=== PATIENT | male | born 1965 | race Caucasian/White ===

== ENCOUNTER 2018-06-30 15:19 | Inpatient (IN) | payer BC ==
[~2018-06-30] VITALS: Ht 175.3 cm; Wt 59.0 kg
[~2018-06-30 15:19] MED LIST: ACET-868 PO; ALBU1.25 MC; ALBU2.5V13 NEB; BENA40TA8 PO; CALC667C PO; CARV6.25 PO; CLON0.2T PO; DOCU-141 PO; FURO80TA85 PO; GABA-534 PO; HYDR-4075 PO; MORP15TA10 PO; ONDA4TAB8 PO; TERA10CA4 PO
[2018-06-30 15:48] LABS: BASOPHILS # (AUTO) 0.1 /CMM (0.0-0.2); BASOPHILS % (AUTO) 1.4 % (0.0-2.0); EOSINOPHILS % (AUTO) 4.8 % (0.0-6.0); HEMATOCRIT 32 % (39-51); HEMOGLOBIN 10.6 g/dL (13.5-17.5); LYMPHOCYTES # (AUTO) 1.4 /CMM (0.8-4.8); LYMPHOCYTES % (AUTO) 26.9 % (20.0-44.0); MEAN CORPUSCULAR HGB CONC 33 g/dl (31.0-36.0); MEAN CORPUSCULAR VOLUME 91 fL (80-96); MONOCYTES # (AUTO) 0.6 /CMM (0.1-1.30); NEUTROPHILS # (AUTO) 2.8 /CMM (1.8-8.9); NEUTROPHILS % (AUTO) 54.9 % (43.0-81.0); PLATELET COUNT (AUTO) 101 /CMM (150-450); RED BLOOD CELL COUNT(AUTO) 3.54 MIL/uL (4.5-6.0); WHITE BLOOD COUNT (AUTO) 5.1 K/uL (4.3-11.0)
[2018-06-30 15:58] LABS: CALCIUM, SERUM 9.4 mg/dL (8.5-10.1)
[2018-06-30 16:00] LABS: CREATININE 7.9 mg/dL (0.6-1.3)
--- NOTE | 2018-06-30 16:00 | NUR ---
patient presented to the ER sent from snf due to potassium elevated. On room air, breathing evenly and unlabored. Connected to the monitor and pulse ox. Denies any pain at this time. Kept comfortable, will continue to monitor accordingly.
[2018-06-30 16:01] LABS: POTASSIUM 6.2 mmol/L (3.5-5.1)
[2018-06-30] MEDS ORDERED: ALBUTEROL FS 2.5 MG/3 ML VIAL.NEB NEB ONE (16:30)
[2018-06-30] MEDS ORDERED: INSULIN REGULAR, HUMAN 100 UNIT/ML 10 ML VIAL IV ONE (16:30)
[2018-06-30] MEDS ORDERED: SODIUM BICARBONATE SYR 50 MEQ/50 ML DISP.SYRIN IV ONE (16:30)
[2018-06-30] MEDS ORDERED: DEXTROSE 50%-WATER 50 ML DISP.SYRIN IV ONE (16:30)
[2018-06-30] MEDS ORDERED: SODIUM BICARBONATE SYR 50 MEQ/50 ML DISP.SYRIN ONE (16:41)
[2018-06-30] MEDS ORDERED: DEXTROSE 50%-WATER 50 ML DISP.SYRIN ONE (16:41)
[2018-06-30] MEDS ORDERED: INSULIN REGULAR, HUMAN 100 UNIT/ML 10 ML VIAL ONE (16:42)
[2018-06-30] MEDS ORDERED: ALBUTEROL FS 2.5 MG/3 ML VIAL.NEB ONE (17:09)
--- NOTE | 2018-06-30 17:36 | NUR ---
CALLED [employer] CLAM SORTER WAS PAGED.
--- NOTE | 2018-06-30 17:42 | NUR ---
DR SHAH CALLED, ON THE PHONE WITH DR BLUE
[2018-06-30] MEDS ORDERED: MAGNESIUM HYDROXIDE 30 ML UDC PO PRN (18:00)
[2018-06-30] MEDS ORDERED: ONDANSETRON 4 MG TAB.RAPDIS PO SCH (18:00)
[2018-06-30] MEDS ORDERED: ALBUTEROL FS 2.5 MG/0.5 ML VIAL.NEB NEB SCH (18:00)
[2018-06-30] MEDS ORDERED: MAG HYDROX/AL HYDROX/SIMETH 30 ML UDC PO PRN (18:00)
[2018-06-30] MEDS ORDERED: ACETAMINOPHEN 325 MG TABLET PO PRN (18:00)
[2018-06-30] MEDS ORDERED: ONDANSETRON HCL/PF 4 MG/2 ML VIAL IVP PRN (18:00)
[2018-06-30] MEDS ORDERED: Z GUARD REMEDY 2 OZ OINT TP PRN (18:00)
--- NOTE | 2018-06-30 18:03 | NUR ---
RT Pt just finished Albuterol 10mg tx.
[2018-06-30 18:30] VITALS: BP 139/67
[2018-06-30] MEDS ORDERED: MORPHINE SULFATE INJ 2 MG/ML DISP.SYRIN IV PRN (18:30)
--- NOTE | 2018-06-30 18:30 | NUR ---
DESIGN CELL ENGINEER RECEIVING NOTES RECEIVED PT FROM ER TO ROOM 111-1.ALERT/ORIENTED X4,ON ROOM AIR,TOLERATING WELL.NO SOB AND ACUTE DISTRESS NOTED.LEFT AV SHUNT AND RIGHT AC G18,SITE IS CLEAN,DRY AND INTACT.NO INFILTRATION NOTED.SAFETY IS MAINTAINED AT ALL TIMES.BED IS IN LOW POSITION AND LOCKED.CALL LIGHT IS WITHIN REACH.WILL CONTINUE TO MONITOR THE PT CLOSELY.
--- NOTE | 2018-06-30 18:40 | NUR ---
patient wheeled to [facility] for tele bed. In no apparent distress noted.
--- NOTE | 2018-06-30 19:00 | NUR ---
Received patient stable,awake,alert,not in any distress,converses,coherent and appropriate. Left arm AV shunt.Shunt Precaution observed.comfort care done,needs attended. Colostomy at RLQ with liquid greenish drainage,intact.Comfort care done,needs attended. 2100 Hemodialysis started
--- NOTE | 2018-06-30 19:01 | NUR ---
PHOTOENGRAVER CLOSING NOTES PT IS LYING ON BED.NO SIGNIFICANT CHANGES NOTED IN THE SHIFT.ENDORSED TO LOAN SUPERVISOR RN FOR FOLLOW UP ADMISSION PROCESS.
[2018-06-30] MEDS: hydrALAZINE HCL 10 MG TABLET PO SCH (19:06)
[2018-06-30] MEDS: FUROSEMIDE 40 MG TABLET PO SCH (19:06)
[2018-06-30] MEDS: CALCIUM ACETATE 667 MG TABLET PO SCH (19:06)
[2018-06-30] MEDS: CLONIDINE HCL 0.1 MG TABLET PO SCH (19:07)
--- NOTE | 2018-06-30 19:30 | NUR ---
RN NOTE: DR. SHAH GAVE AN ORDER FOR ARTIFICIAL TEARS 1 DROP TO EACH EYE Q2HR PRN FOR DRY EYES. ORDER, NOTED AND CARRIED OUT. PATIENT MADE AWARE.
[2018-06-30 20:00] VITALS: BP 134/72
[2018-06-30] MEDS: HYDROCODONE/APAP 5/325MG 1 EACH TABLET PO PRN (20:09)
[2018-06-30] MEDS: ALBUTEROL FS 2.5 MG/0.5 ML VIAL.NEB NEB SCH (20:24)
[2018-06-30] MEDS: TERAZOSIN HCL 5 MG CAPSULE PO SCH (21:37)
--- NOTE | 2018-06-30 22:30 | NUR ---
REMAINS STABLE,CARE TRANSFERED AND REPORT GIVEN TO SAVANNAH HERNANDEZ
--- NOTE | 2018-06-30 23:43 | NUR ---
WALLPAPER SCRAPER NOTES RECEIVED PT ON BED. SLEEPING. ON TELE MONITOR SR. ON ROOM AIR SATURATING WELL. NO RESPIRATORY DISTRESS NOTED. IV ACCES ON RAC G18 PATENT AND INTACT. COLOSTOMY BAG DRAINING YELLOW STOOL. HD GOING ON DIALYSIS NURSE AT BEDSIDE. HEAD OF BED ELEVATED. SIDE RAILS UP. CALL LIGHT WITHIN REACH. BED ALARM ON. WILL CONTINUE TO MONITOR PT CLOSELY.
[2018-07-01] VITALS: BP_SYST 111; BP_SYST 121; BP_DIAS 61
--- NOTE | 2018-07-01 00:19 | NUR ---
ESTIMATOR PROJECT MANAGER NOTES BP MEDS NOT GIVEN, PT POST DIALYSIS. BP 111/51MMHG
[2018-07-01] MEDS: ALBUTEROL FS 2.5 MG/0.5 ML VIAL.NEB NEB SCH ×4 (00:31→19:43)
[2018-07-01] MEDS: HYDROCODONE/APAP 5/325MG 1 EACH TABLET PO PRN ×5 (00:37→21:16)
[2018-07-01] MEDS: POLYVINYL ALCOHOL 15 ML BOTTLE EACHEYE PRN ×2 (00:51→16:01)
[2018-07-01 04:00] VITALS: BP 119/58
[2018-07-01] MEDS: hydrALAZINE HCL 10 MG TABLET PO SCH ×4 (06:00→17:05)
[2018-07-01 07:29] LABS: EOSINOPHILS % (AUTO) 4.3 % (0.0-6.0); HEMATOCRIT 29 % (39-51); HEMOGLOBIN 9.5 g/dL (13.5-17.5); LYMPHOCYTES % (AUTO) 26.9 % (20.0-44.0); MEAN CORPUSCULAR HGB CONC 33 g/dl (31.0-36.0); MEAN CORPUSCULAR VOLUME 90 fL (80-96); MONOCYTES # (AUTO) 0.5 /CMM (0.1-1.30); MONOCYTES % (AUTO) 12.9 % (2.0-12.0); NEUTROPHILS % (AUTO) 54.9 % (43.0-81.0); PLATELET COUNT (AUTO) 85 /CMM (150-450); WHITE BLOOD COUNT (AUTO) 3.6 K/uL (4.3-11.0)
[2018-07-01 07:47] LABS: CREATININE 5.8 mg/dL (0.6-1.3); MAGNESIUM 1.8 mg/dL (1.8-2.4); PHOSPHORUS 5.1 mg/dL (2.5-4.9); POTASSIUM 4.7 mmol/L (3.5-5.1)
[2018-07-01 08:00] VITALS: BP 116/60
[2018-07-01] MEDS: CALCIUM ACETATE 667 MG TABLET PO SCH ×3 (08:25→17:02)
[2018-07-01 08:39] LABS: EOSINOPHILS % (MANUAL) 5 % (0-4); LYMPHOCYTES % (MANUAL) 26 % (16-48); MONOCYTES % (MANUAL) 10 % (0-11.0); NEUTROPHILS % (MANUAL) 59 (42-76)
[2018-07-01] MEDS ORDERED: BENAZEPRIL HCL 20 MG TABLET PO SCH (09:00)
[2018-07-01] MEDS: CLONIDINE HCL 0.1 MG TABLET PO SCH ×3 (09:50→16:48)
[2018-07-01] MEDS: GABAPENTIN 300 MG CAPSULE PO SCH ×3 (09:51→16:43)
[2018-07-01] MEDS: FUROSEMIDE 40 MG TABLET PO SCH ×2 (09:51→16:40)
[2018-07-01] MEDS: CARVEDILOL 6.25 MG TABLET PO SCH ×2 (09:52→16:48)
[2018-07-01] MEDS: DOCUSATE SODIUM 100 MG CAPSULE PO SCH ×2 (09:52→16:39)
[2018-07-01 12:00] VITALS: BP 110/84
[2018-07-01] MEDS ORDERED: EPOETIN ALFA (10,000 UNIT) 10,000 UNIT/ML VIAL IV ONE (12:00)
--- NOTE | 2018-07-01 13:31 | NUR ---
CLASP MACHINE OPERATOR OPENING NOTES RECEIVED PT ON BED. SLEEPING. ON TELE MONITOR SR. ON ROOM AIR SATURATING WELL. NO RESPIRATORY DISTRESS NOTED. IV ACCES ON RAC G18 PATENT AND INTACT. COLOSTOMY BAG DRAINING YELLOW STOOL. HD GOING ON DIALYSIS. HEAD OF BED ELEVATED. SIDE RAILS UP. CALL LIGHT WITHIN REACH. BED ALARM ON. WILL CONTINUE TO MONITOR PT CLOSELY.
[2018-07-01 16:00] VITALS: BP_SYST 110; BP_SYST 135; BP_DIAS 73; BP_DIAS 84
--- NOTE | 2018-07-01 17:06 | NUR ---
BOILER COVERER HELPER NOTE PATIENT HYDRALAZINE HELD TO PREVENT HYPOTENSION DURING DIALYSIS.
--- NOTE | 2018-07-01 19:52 | NUR ---
STRAIGHT CUTTER CLOSING NOTES PT IN BED AWAKE, A/O X4, NO DISTRESS. HD COMPLETED. 500 ML REMOVED. ON TELE MONITOR SR. ON ROOM AIR SATURATING WELL. NO RESPIRATORY DISTRESS NOTED. IV ACCES ON RAC G18 PATENT AND INTACT. COLOSTOMY BAG DRAINING YELLOW STOOL. HD GOING ON DIALYSIS. HEAD OF BED ELEVATED. SIDE RAILS UP. CALL LIGHT WITHIN REACH. BED ALARM ON. CARE ENDORSED TO HAND MOLDER AND CASTER RN. .
[2018-07-01 20:00] VITALS: BP 159/88
--- NOTE | 2018-07-01 20:19 | NUR ---
GLASS CHECKER OPENING NOTES RECEIVED REPORT FROM MAURO HERNANDEZ. PATIENT A/A/O X3, ABLE TO MAKE NEEDS KNOWN. BREATHING EVEN & UNLABORED, TOLERATING ROOM AIR. DENIES ANY SOB OR DIFFICULTY BREATHING. ON TELE W/ SINUS RHYTHM, HR 80S. RIGHT AC IV #18 INTACT & PATENT W/ DRESSING CDI, SALINE LOCKED. LEFT AV SHUNT W/ NO SWELLING NOTED. DENIES ANY PAIN OR DISCOMFORT @ THIS TIME. SAFETY MEASURES IN PLACE W/ SIDE RAILS UP & BED ALARM ON. INSTRUCTED TO USE CALL LIGHT FOR ASSISTANCE. WILL CONTINUE TO MONITOR.
[2018-07-01] MEDS: TERAZOSIN HCL 5 MG CAPSULE PO SCH (21:16)
[2018-07-01] MEDS: ZOLPIDEM TARTRATE 5 MG TABLET PO PRN (23:19)
[2018-07-02] VITALS: BP 119/67
[2018-07-02] MEDS: ALBUTEROL FS 2.5 MG/0.5 ML VIAL.NEB NEB SCH ×4 (00:41→19:29)
[2018-07-02] MEDS: LORAZEPAM INJ 2 MG/ML VIAL IV PRN ×3 (03:04→19:14)
[2018-07-02 04:00] VITALS: BP 121/71
[2018-07-02] MEDS: HYDROCODONE/APAP 5/325MG 1 EACH TABLET PO PRN ×3 (05:36→21:37)
[2018-07-02] MEDS: hydrALAZINE HCL 10 MG TABLET PO SCH ×4 (06:00→18:20)
[2018-07-02 07:27] LABS: EOSINOPHILS % (AUTO) 4.7 % (0.0-6.0); HEMATOCRIT 31 % (39-51); HEMOGLOBIN 10.3 g/dL (13.5-17.5); LYMPHOCYTES # (AUTO) 1.1 /CMM (0.8-4.8); LYMPHOCYTES % (AUTO) 25.5 % (20.0-44.0); MEAN CORPUSCULAR HGB CONC 33 g/dl (31.0-36.0); MEAN CORPUSCULAR VOLUME 90 fL (80-96); MONOCYTES # (AUTO) 0.6 /CMM (0.1-1.30); MONOCYTES % (AUTO) 12.9 % (2.0-12.0); NEUTROPHILS # (AUTO) 2.4 /CMM (1.8-8.9); NEUTROPHILS % (AUTO) 55.9 % (43.0-81.0); PLATELET COUNT (AUTO) 93 /CMM (150-450); WHITE BLOOD COUNT (AUTO) 4.3 K/uL (4.3-11.0)
[2018-07-02 07:43] LABS: CREATININE 5.3 mg/dL (0.6-1.3); POTASSIUM 5.6 mmol/L (3.5-5.1)
[2018-07-02 08:00] VITALS: BP_SYST 103; BP_SYST 133; BP_DIAS 44; BP_DIAS 72
--- NOTE | 2018-07-02 08:05 | NUR ---
HAT FINISHING MATERIALS PREPARER OPENING NOTES PT IN BED AWAKE AND RESTLESS. CREPING MACHINE OPERATOR HELPER REPORTED RESTLESSNESS DURING THE NIGHT. A/O X4, AFEBRILE. ON TELE SR 60'S. ON ROOM AIR SATURATING WELL. NO RESPIRATORY DISTRESS NOTED. IV ACCES ON RAC G18 PATENT AND INTACT. COLOSTOMY BAG DRAINING YELLOW STOOL. SAFETY MEASURES IN PLACE. CALL LIGHT WITHIN REACH. BED ALARM ON. WILL CONTINUE TO MONITOR.
[2018-07-02] MEDS: CALCIUM ACETATE 667 MG TABLET PO SCH ×3 (08:52→18:19)
[2018-07-02] MEDS: DOCUSATE SODIUM 100 MG CAPSULE PO SCH ×2 (08:52→16:50)
[2018-07-02] MEDS: FUROSEMIDE 40 MG TABLET PO SCH ×2 (08:52→16:49)
[2018-07-02] MEDS: LOSARTAN POTASSIUM 25 MG TABLET PO SCH (08:52)
[2018-07-02] MEDS: CLONIDINE HCL 0.1 MG TABLET PO SCH ×3 (08:53→16:50)
[2018-07-02] MEDS: GABAPENTIN 300 MG CAPSULE PO SCH ×3 (08:53→16:51)
[2018-07-02] MEDS: CARVEDILOL 6.25 MG TABLET PO SCH ×2 (08:53→16:50)
[2018-07-02 12:00] VITALS: BP 118/63
[2018-07-02 16:00] VITALS: BP 124/73
--- NOTE | 2018-07-02 19:10 | NUR ---
PROJECT HIRE NOTE PATIENT IS AOX3, ON TELE SR, RESTING WITH HOB ELEVATED, DENIES PAIN, NO S/SX OF CARDIAC OR RESPIRATORY DISTRESS, COLOSTOMY IN PLACE, F/C DRAINING TO GRAVITY YELLOW URINE, LAV SHUNT AREA COVERED, RAC #18G IV, PATENT FLUSHING WELL, SKIN KEPT CLEAN AND DRY, SAFETY MAINTAINED AT ALL TIMES, BED IN LOW LOCKED POSITION, WILL CONTINUE TO MONITOR FOR CHANGES.
[2018-07-02 20:00] VITALS: BP 144/79
--- NOTE | 2018-07-02 20:26 | NUR ---
INSTITUTIONAL CUSTODIAN CLOSING NOTES PT IN BED AWAKE, A/O X4, NO DISTRESS. HD COMPLETED. 500 ML REMOVED. ON TELE MONITOR SR. ON ROOM AIR SATURATING WELL. NO RESPIRATORY DISTRESS NOTED. IV ACCES ON RAC G18 PATENT AND INTACT. COLOSTOMY BAG DRAINING YELLOW STOOL. HD GOING ON DIALYSIS. HEAD OF BED ELEVATED. SIDE RAILS UP. CALL LIGHT WITHIN REACH. BED ALARM ON. CARE ENDORSED TO ACUTE CARE PHYSICIAN RN. .
[2018-07-02] MEDS: TERAZOSIN HCL 5 MG CAPSULE PO SCH (21:32)
[2018-07-03] VITALS: BP 132/63
[2018-07-03] MEDS: hydrALAZINE HCL 10 MG TABLET PO SCH ×5 (00:10→23:49)
[2018-07-03] MEDS: ALBUTEROL FS 2.5 MG/0.5 ML VIAL.NEB NEB SCH ×4 (01:30→19:56)
[2018-07-03] MEDS: HYDROCODONE/APAP 5/325MG 1 EACH TABLET PO PRN ×4 (02:54→22:59)
[2018-07-03 04:00] VITALS: BP 121/57
[2018-07-03 07:03] LABS: BASOPHILS % (AUTO) 0.9 % (0.0-2.0); EOSINOPHILS % (AUTO) 6.7 % (0.0-6.0); HEMATOCRIT 30 % (39-51); HEMOGLOBIN 10.2 g/dL (13.5-17.5); LYMPHOCYTES # (AUTO) 1.2 /CMM (0.8-4.8); LYMPHOCYTES % (AUTO) 26.7 % (20.0-44.0); MEAN CORPUSCULAR HGB CONC 34 g/dl (31.0-36.0); MEAN CORPUSCULAR VOLUME 90 fL (80-96); MONOCYTES # (AUTO) 0.3 /CMM (0.1-1.30); MONOCYTES % (AUTO) 7.2 % (2.0-12.0); NEUTROPHILS # (AUTO) 2.6 /CMM (1.8-8.9); NEUTROPHILS % (AUTO) 58.5 % (43.0-81.0); PLATELET COUNT (AUTO) 100 /CMM (150-450); RED BLOOD CELL COUNT(AUTO) 3.37 MIL/uL (4.5-6.0); WHITE BLOOD COUNT (AUTO) 4.5 K/uL (4.3-11.0)
[2018-07-03 07:16] LABS: CALCIUM, SERUM 9.5 mg/dL (8.5-10.1); CREATININE 7.1 mg/dL (0.6-1.3); POTASSIUM 5.9 mmol/L (3.5-5.1)
[2018-07-03 08:00] VITALS: BP 141/69
--- NOTE | 2018-07-03 08:25 | NUR ---
AMMONIA SOLUTION PREPARER OPENING NOTES PT IN BED AWAKE AND RESTING COMFORTABLY.A/O X4, AFEBRILE. ON TELE SR 70'S. ON ROOM AIR SATURATING WELL. NO RESPIRATORY DISTRESS NOTED. IV ACCES ON RAC G18 SL PATENT AND INTACT. COLOSTOMY BAG DRAINING YELLOW STOOL. SAFETY MEASURES IN PLACE. CALL LIGHT WITHIN REACH. BED ALARM ON. WILL CONTINUE TO MONITOR.
[2018-07-03] MEDS: CLONIDINE HCL 0.1 MG TABLET PO SCH ×3 (09:00→17:15)
[2018-07-03] MEDS: GABAPENTIN 300 MG CAPSULE PO SCH ×3 (09:41→17:14)
[2018-07-03] MEDS: LORAZEPAM INJ 2 MG/ML VIAL IV PRN (11:31)
[2018-07-03] MEDS: FUROSEMIDE 40 MG TABLET PO SCH ×2 (13:00→17:15)
[2018-07-03] MEDS: CALCIUM ACETATE 667 MG TABLET PO SCH ×3 (13:21→17:14)
[2018-07-03] MEDS: CARVEDILOL 6.25 MG TABLET PO SCH ×2 (13:23→17:07)
[2018-07-03] MEDS: DOCUSATE SODIUM 100 MG CAPSULE PO SCH ×2 (13:27→17:14)
--- NOTE | 2018-07-03 15:54 | NUR ---
MORNING BP MEDS HELD PER MD PATIENT WAS GETTING DIALYSIS TREATMENT. BLOOD PRESSURE CHECKED POST HD 113/59 AT 1400. BP RECHECKED 96/44 AT 1600. CLONIDINE HELD. CARVEDILOL AND LOSARTAN TO BE GIVEN OVER NEXT 2 HOURS.
[2018-07-03 16:00] VITALS: BP 96/44
[2018-07-03] MEDS: LOSARTAN POTASSIUM 25 MG TABLET PO SCH (17:07)
--- NOTE | 2018-07-03 19:30 | NUR ---
RN NOTES: RECEIVED AWAKE ON BED, LYING COMFORTABLY DURING ENDORSEMENT,LEFT AV SHUNT, (+) THRILL (+) BRUIT,COLOSTOMY IN SITE, DRAINING INTO BROWNISH/YELLOWISH STOOL SEMI SOFT IN CONSISTENCY AT AROUND 150CC LEVEL.IV SITE PATENT ON RAC#18, HAD DIALYSIS TODAY OUTPUT=2L(PER ENDORSEMENT).ORIENTED TO UNIT AND STAFF, FALL, SAFETY AND ASPIRATION PRECAUTION OBSERVED, BED LOW AND LOCKED, KEPT ON CLOSE VISUAL CHECKED,CALL LIGHT WITHIN EASY REACH.
--- NOTE | 2018-07-03 19:33 | NUR ---
SOFTWARE VALIDATION TECHNICIAN CLOSING NOTES PT IN BED AWAKE, A/O X4, NO DISTRESS, NO SOB. HD COMPLETED. 2LITERS REMOVED DURING HD. ON ROOM AIR SATURATING WELL. NO RESPIRATORY DISTRESS NOTED. IV ACCES ON RAC G18 PATENT AND INTACT. SKIN INTACT, COLOSTOMY BAG DRAINING BROWN/YELLOW STOOL. HEAD OF BED ELEVATED. SIDE RAILS UP. CALL LIGHT WITHIN REACH. BED ALARM ON. CARE ENDORSED TO SHOT MAN RN. .
--- NOTE | 2018-07-03 19:35 | NUR ---
CUSTOMS IMPORT SPECIALIST NOTE DIALYSIS COMPLETED. 2 LITERS FLUID REMOVED.
--- NOTE | 2018-07-03 19:53 | NUR ---
RN NOTES: PATIENT ROOM CHANGE FROM 112-1 TO 111-1, EXPLAINED TO HIM AND HE AGREED FOR ROOM CHANGE.
[2018-07-03 20:00] VITALS: BP 114/67
[2018-07-03] MEDS: TERAZOSIN HCL 5 MG CAPSULE PO SCH (21:46)
--- NOTE | 2018-07-03 22:46 | NUR ---
RN NOTES: -HAD SNACK AT AROUND 2130PM OF SANDWICH AND JUICE -2136 DRAINED COLOSTOMY-220CC -2240 DRAINED COLOSTOMY-650 CC NOTED MORE AIR ON THE BAG, NO ABDOMINAL DISCOMFORT NOTED. -2244 PATIENT STILL AWAKE WATCHING TV.
--- NOTE | 2018-07-03 23:10 | NUR ---
RN NOTES: -COMPLAINED OF PAIN ON THE RLE,09/30,NON PHARMACOLOGIC INTERVENTION IS INEFFECTIVE,REQUEST FOR NORCO, BP-111/60 SD-64,GIVEN,. -COLOSTOMY DRAINED-125 CC.
[2018-07-03] MEDS: ZOLPIDEM TARTRATE 5 MG TABLET PO PRN (23:37)
--- NOTE | 2018-07-03 23:42 | NUR ---
RN NOTES: -REQUEST MEDICINE FOR SLEEP, HE SAID 'I WANT MY SLEEPING PILL PLEASE', GIVEN PER PATIENT REQUEST. -HYDRALAZINE TAKEN OUT FROM [facility], NOT GIVEN BP-100/50. Addendum: 07/03/18 at 2356 by FABIAN HUMPHREY RN ADDITIONAL NOTE: -CN NOTIFIED,HYDRALAZINE NOT GIVEN, RETURNED TO [facility].REASON: BP100/50 [id number].
[2018-07-04] MEDS: ALBUTEROL FS 2.5 MG/0.5 ML VIAL.NEB NEB SCH ×3 (01:30→13:02)
[2018-07-04 04:00] VITALS: BP 113/63
[2018-07-04] MEDS: hydrALAZINE HCL 10 MG TABLET PO SCH ×2 (05:56→12:00)
--- NOTE | 2018-07-04 06:45 | NUR ---
RN NOTES: -AT 0550-MORNING CARE DONE,COLOSTOMY BAG CHANGE. TOTAL COLOSTOMY OUTPUT [id number] -ABLE TO SLEEP AND REST STILL WITH ON AND OFF PAIN, FALL,SAFETY AND ASPIRATION PRECAUTION OBSERVED, BED LOW AND LOCKED, CALL LIGHT WITHIN EASY REACH, ENDORSED FOR CONTINUITY OF CARE.
--- NOTE | 2018-07-04 07:25 | NUR ---
RN OPENING NOTES RECEIVED REPORT FROM CARDIOVASCULAR RADIOLOGIC TECHNOLOGIST RN. PT IS SLEEPING IN BED IN SUPINE POSITION. NO SOB OR PAIN NOTED AT PRESENT TIME.BED IS LOCKED AD IN LOWEST POSITION WITH CALL LIGTH WITHIN REACH. WILL CONTINUE TO MONITOR.
[2018-07-04 08:00] VITALS: BP 96/39
[2018-07-04] MEDS: CALCIUM ACETATE 667 MG TABLET PO SCH ×2 (08:41→12:43)
[2018-07-04] MEDS: DOCUSATE SODIUM 100 MG CAPSULE PO SCH (08:43)
[2018-07-04] MEDS: FUROSEMIDE 40 MG TABLET PO SCH (08:43)
[2018-07-04] MEDS: GABAPENTIN 300 MG CAPSULE PO SCH ×2 (08:43→12:43)
[2018-07-04] MEDS: CLONIDINE HCL 0.1 MG TABLET PO SCH ×2 (08:44→12:43)
[2018-07-04] MEDS: CARVEDILOL 6.25 MG TABLET PO SCH (08:44)
[2018-07-04] MEDS: LOSARTAN POTASSIUM 25 MG TABLET PO SCH (08:45)
[2018-07-04 09:28] LABS: EOSINOPHILS % (AUTO) 5.8 % (0.0-6.0); HEMATOCRIT 29 % (39-51); HEMOGLOBIN 9.8 g/dL (13.5-17.5); LYMPHOCYTES # (AUTO) 1.5 /CMM (0.8-4.8); LYMPHOCYTES % (AUTO) 32.1 % (20.0-44.0); MEAN CORPUSCULAR HGB CONC 34 g/dl (31.0-36.0); MEAN CORPUSCULAR VOLUME 90 fL (80-96); MONOCYTES # (AUTO) 0.5 /CMM (0.1-1.30); MONOCYTES % (AUTO) 10.1 % (2.0-12.0); NEUTROPHILS # (AUTO) 2.4 /CMM (1.8-8.9); PLATELET COUNT (AUTO) 115 /CMM (150-450); RED BLOOD CELL COUNT(AUTO) 3.26 MIL/uL (4.5-6.0); WHITE BLOOD COUNT (AUTO) 4.8 K/uL (4.3-11.0)
[2018-07-04 09:41] LABS: CALCIUM, SERUM 9.2 mg/dL (8.5-10.1); PHOSPHORUS 5.3 mg/dL (2.5-4.9); POTASSIUM 5.2 mmol/L (3.5-5.1)
[2018-07-04 12:00] VITALS: BP 96/39
[2018-07-04 12:43] VITALS: BP 96/39
[2018-07-04] MEDS: HYDROCODONE/APAP 5/325MG 1 EACH TABLET PO PRN (12:51)
--- NOTE | 2018-07-04 14:46 | NUR ---
D/C NOTES PT GOING BACK TO [facility]. EXITCARE INSTRUCTION GIVEN TO PT AND EDUCATION GIVEN TO PT. REPORT GIVEN TO HAYDEN AT [facility] RN STONE CRUSHER OPERATOR. PT IS STABLE AND TAUGHT BACK EDUCATION THAT WAS TAUGHT. PT IS STABLE PT DENIES ANY SOB OR PAIN AT TIME OF DC. IV WAS REMOVED AND COLOSTOMY BAG CHANGED. BELONGINGS WERE GIVEN BACK TO PT. AMBULANCE ARRIVED AND REPORT GIVEN TO EMT LULU. PT LEFT UNIT AT 1440 BY AMBULANCE. LAST VITALS TAKEN. TEMP. 98.2 HR 75 RESP.12 O2 99% BP 113/67.
== END 2018-07-04 14:35 | DRG 640 ==
LOC: ER 15:22 → TELE1 17:52 → MEDSG1 07-03 08:58
PROVIDERS: ADMIT Family Medicine; ATTEND Family Medicine
DX: E87.5 Hyperkalemia (principal); N18.6 End stage renal disease; I12.0 Hypertensive chronic kidney disease with stage 5 chronic kidney disease or end stage renal disease; Z99.2 Dependence on renal dialysis; E11.22 Type 2 diabetes mellitus with diabetic chronic kidney disease; H10.11 Acute atopic conjunctivitis, right eye; E87.1 Hypo-osmolality and hyponatremia; D63.8 Anemia in other chronic diseases classified elsewhere; E83.39 Other disorders of phosphorus metabolism; Z93.3 Colostomy status; M10.9 Gout, unspecified; F32.9 Major depressive disorder, single episode, unspecified; E87.70 Fluid overload, unspecified; E11.65 Type 2 diabetes mellitus with hyperglycemia; L89.309 Pressure ulcer of unspecified buttock, unspecified stage; L89.899 Pressure ulcer of other site, unspecified stage
CPT/HCPCS: 36415; 71045-TC; 80048-TC; 80061-TC; 83735-TC; 84100-TC; 85025-TC; 87081-TC; 90935-TC; 94760-TC; A6253; A6402; G0378; J0885; J1815; J2060; J3490; Q0162

== ENCOUNTER 2018-07-30 19:02 | Inpatient (IN) | payer BC ==
[~2018-07-30] VITALS: Ht 172.7 cm; Wt 80.7 kg
--- NOTE | 2018-07-30 19:15 | NUR ---
PT SANTIAGO, SENT HERE FOR ELEVATED K 7.3. DENIES CP, SOB @ THIS TIME. DENIES PAIN AT THIS TIME. AOX4. NAD NOTED. RESP EVEN AND UNLABORED. L UPPER ARM FISTULA. COLOSTOMY BAG ON RLQ. PT ON MONITOR IN BED 7. WILL CONTINUE TO MONITOR.
--- NOTE | 2018-07-30 19:24 | NUR ---
TECH AT BEDSIDE FOR EKG
--- NOTE | 2018-07-30 19:25 | NUR ---
COLOSTOMY BAG CHANGED. PT TOLERATED WELL.
--- NOTE | 2018-07-30 19:31 | NUR ---
PHLEB AT BEDSIDE FOR LAB DRAW
[2018-07-30 19:35] LABS: BASOPHILS # (AUTO) 0.1 /CMM (0.0-0.2); BASOPHILS % (AUTO) 1.4 % (0.0-2.0); EOSINOPHILS % (AUTO) 2.3 % (0.0-6.0); HEMATOCRIT 34 % (39-51); HEMOGLOBIN 11.1 g/dL (13.5-17.5); LYMPHOCYTES # (AUTO) 1.4 /CMM (0.8-4.8); LYMPHOCYTES % (AUTO) 20.6 % (20.0-44.0); MEAN CORPUSCULAR HGB CONC 33 g/dl (31.0-36.0); MEAN CORPUSCULAR VOLUME 90 fL (80-96); MONOCYTES # (AUTO) 0.9 /CMM (0.1-1.30); MONOCYTES % (AUTO) 12.6 % (2.0-12.0); NEUTROPHILS # (AUTO) 4.3 /CMM (1.8-8.9); NEUTROPHILS % (AUTO) 63.1 % (43.0-81.0); PLATELET COUNT (AUTO) 234 /CMM (150-450); RED BLOOD CELL COUNT(AUTO) 3.72 MIL/uL (4.5-6.0); WHITE BLOOD COUNT (AUTO) 6.9 K/uL (4.3-11.0)
[2018-07-30 20:00] LABS: ALBUMIN 2.8 g/dL (3.4-5.0); BILIRUBIN,DIRECT 0.1 mg/dL (0.0-0.2); BILIRUBIN,TOTAL 0.5 mg/dL (0.2-1.0); CALCIUM, SERUM 8.9 mg/dL (8.5-10.1)
[2018-07-30] MEDS ORDERED: FUROSEMIDE 40 MG/4 ML VIAL IV ONE (20:00)
[2018-07-30] MEDS ORDERED: SODIUM POLYSTYRENE SULFONATE 15 G/60 ML BOTTLE PO ONE (20:00)
[2018-07-30 20:05] LABS: POTASSIUM 6.2 mmol/L (3.5-5.1)
[2018-07-30 20:07] LABS: CREATININE 8.9 mg/dL (0.6-1.3)
[2018-07-30] MEDS ORDERED: FUROSEMIDE 20 MG/2 ML VIAL ONE (20:23)
[2018-07-30] MEDS ORDERED: INSULIN REGULAR, HUMAN 100 UNIT/ML 10 ML VIAL ONE (20:23)
[2018-07-30] MEDS ORDERED: SODIUM POLYSTYRENE SULFONATE 15 G/60 ML BOTTLE ONE (20:23)
[2018-07-30] MEDS ORDERED: INSULIN REGULAR, HUMAN 100 UNIT/ML 10 ML VIAL SQ ONE (20:30)
--- NOTE | 2018-07-30 20:51 | NUR ---
TELE BED 320-1
--- NOTE | 2018-07-30 21:39 | NUR ---
BG 246. AWARE.
--- NOTE | 2018-07-30 21:43 | NUR ---
BED 321-1. REPORT GIVEN TO MARY LOPEZ FOR SADIA
--- NOTE | 2018-07-30 21:50 | NUR ---
ADMISSION NOTES: RECEIVED REPORT FROM NINI HERRERA RN. PT BROUGHT TO THE UNIT VIA GURNEY. PT A/O X4, ON RA RESPIRATION EVEN AND UNLABORED, DENIES ANY PAIN OR DISCOMFORT AT THIS TIME. PER REPORT HD RN WILL DO DIALYSIS PER MD ORDER ONCE PT GET TO THE UNIT. ORIENTED PT TO UNIT POLICY AND HOURLY ROUNDING, USE OF CALL LIGHT. PT HAS RLQ COLOSTOMY BAG. ASSISTED IN BED, VS TAKEN AND RECORDED. INVENTORY OF BELONGINGS COMPLETED BY AUSTIN YADAV. SAFETY PRECAUTIONS FOR FALL INITIATED, CALL LIGHT IN REACH, WILL CONTINUE MONITORING PT.
[2018-07-30 22:00] VITALS: BP 107/52
[2018-07-30] MEDS ORDERED: IV NS 0.9% 500 ML BAG IV ONE (22:00)
--- NOTE | 2018-07-30 22:01 | NUR ---
RN NOTES: RETAIL HELPER CAME TO THE UNIT, TO DO HD. WILL CONTINUE WITH SKIN ASSESSMENT ONCE HD COMPLETED
--- NOTE | 2018-07-30 22:03 | NUR ---
RN NOTES: ONGOING HD
[2018-07-30] MEDS ORDERED: AMLO10TA7 PO (22:55)
[2018-07-30] MEDS ORDERED: HYDR-4354 PO (22:55)
[2018-07-30] MEDS ORDERED: CARV12.52 PO (22:55)
[2018-07-30] MEDS ORDERED: LIDOCAINE PATCH TOP (22:55)
[2018-07-30] MEDS ORDERED: TAPE100T2 PO (22:55)
[2018-07-30] MEDS ORDERED: ZOLP5TAB2 PO (22:55)
[2018-07-30] MEDS ORDERED: DULO30CA2 PO (22:55)
[2018-07-30] MEDS ORDERED: PREG100C PO (22:55)
[2018-07-30] MEDS ORDERED: SEVE800T8 PO (22:55)
[2018-07-30] MEDS ORDERED: DEXT15DR6 OP (22:55)
[2018-07-30] MEDS ORDERED: FERR325T23 PO (22:55)
[2018-07-30] MEDS ORDERED: PANT40TA2 PO (22:55)
[2018-07-30] MEDS ORDERED: LORA-259 PO (22:55)
[2018-07-30] MEDS ORDERED: GABA100C PO (22:55)
--- NOTE | 2018-07-30 22:59 | NUR ---
RN NOTES: ALL HOME MEDS ENCODED IN THE COMPUTER, GEOVANNI CALDERON NOTIFIED
[2018-07-31] VITALS: BP 123/63
[2018-07-31] MEDS ORDERED: MAG HYDROX/AL HYDROX/SIMETH 30 ML UDC PO PRN
[2018-07-31] MEDS ORDERED: Z GUARD REMEDY 2 OZ OINT TP PRN
[2018-07-31] MEDS ORDERED: ZOLPIDEM TARTRATE 5 MG TABLET PO PRN
[2018-07-31] MEDS ORDERED: MAGNESIUM HYDROXIDE 30 ML UDC PO PRN
[2018-07-31] MEDS ORDERED: ONDANSETRON HCL/PF 4 MG/2 ML VIAL IVP PRN
[2018-07-31] MEDS ORDERED: HYDROCODONE/APAP 5/325MG 1 EACH TABLET PO PRN
[2018-07-31] MEDS ORDERED: INSULIN REGULAR, HUMAN 100 UNIT/ML 3 ML VIAL SQ PRN
[2018-07-31] MEDS ORDERED: ACETAMINOPHEN 325 MG TABLET PO PRN
--- NOTE | 2018-07-31 00:26 | NUR ---
RN NOTES: JUST COMPLETED DIALYSIS, PER TECH ONLY CLEANING NOTHING WAS REMOVED. PT WILL HAVE ANOTHER HD IN AM
--- NOTE | 2018-07-31 01:00 | NUR ---
RN NOTES: PT'S COLOSTOMY BAG ACCIDENTALLY CAME OFF WHILE DOING HD ACCORDING TO PT, DECIDED TO PROVIDE COMPLETE BED BATH WITH COMPLETE LINEN CHANGE. SKIN ASSESSMENT PERFORMED WITH 2 ELECTRIC PLATER, LULU AND VICENTA. NEW COLOSTOMY BAG PLACED AND SKIN PREP USED PRIOR TO ATTACHING THE APPLIANCE.
[2018-07-31 02:04] VITALS: BP 123/63
[2018-07-31] MEDS: MORPHINE SULFATE INJ 2 MG/ML DISP.SYRIN IV PRN ×2 (02:06→07:52)
--- NOTE | 2018-07-31 02:07 | NUR ---
PRN MORPHINE: PT C/O 10/31 RIGHT FOOT PAIN, REQUESTING FOR NUCYNTA, STATED ITS EFFECTIVE PAIN MEDICATION, CONTACTED PHARMACIST CEMENT WORKER, PER PHARMACIST [facility] AND WILL HAVE TO WAIT FOR IN HOUSE PHARMACIST, PER GEOVANNI NEW ORDER FOR MORPHINE IVP. PRN MORPHINE 2MG IVP ADMINISTERED AT THIS TIME, WILL CONTINUE TO MONITOR AND REASSESS PT
[2018-07-31 04:00] VITALS: BP 133/67
[2018-07-31 06:21] LABS: BASOPHILS # (AUTO) 0.1 /CMM (0.0-0.2); EOSINOPHILS % (AUTO) 2.3 % (0.0-6.0); HEMATOCRIT 30 % (39-51); HEMOGLOBIN 10.2 g/dL (13.5-17.5); LYMPHOCYTES # (AUTO) 1.3 /CMM (0.8-4.8); LYMPHOCYTES % (AUTO) 26.3 % (20.0-44.0); MEAN CORPUSCULAR HGB CONC 35 g/dl (31.0-36.0); MEAN CORPUSCULAR VOLUME 88 fL (80-96); MONOCYTES # (AUTO) 0.6 /CMM (0.1-1.30); MONOCYTES % (AUTO) 10.9 % (2.0-12.0); NEUTROPHILS % (AUTO) 59.5 % (43.0-81.0); PLATELET COUNT (AUTO) 230 /CMM (150-450); RED BLOOD CELL COUNT(AUTO) 3.36 MIL/uL (4.5-6.0); WHITE BLOOD COUNT (AUTO) 5.1 K/uL (4.3-11.0)
--- NOTE | 2018-07-31 06:22 | NUR ---
ACCU CHECK: BLOOD SUGAR 305, 8UNITS OF INSULIN GIVEN PER SLIDING SCALE, WILL MONITOR FOR ANY S/S OF HYPOGLYCEMIA
--- NOTE | 2018-07-31 06:32 | NUR ---
RN CLOSING NOTES: PT IN BED, AWAKE, IV ACCESS REMAINS PATENT AND FLUSHING WELL, ON HL. REMAINS ON RA RESPIRATION EVEN AND UNLABORED. FOR HD TODAY. COLOSTOMY BAG NEWLY CHANGED, NO LEAKING NOTED. ON SINUS RHYTHM WITH BBB 84. VS REMAINS STABLE, NEEDS ATTENDED. SAFETY PRECAUTIONS FOR FALL REMAINS ENGAGED, CALL LIGHT IN REACH, WILL ENDORSE TO DAY RN FOR CONTINUITY OF CARE.
[2018-07-31 07:06] LABS: THYROID STIMULATING HORMONE 1.169 uIU/mL (0.358-3.74)
[2018-07-31] MEDS ORDERED: BLOOD SUGAR DIAGNOSTIC 1 EACH STRIP IN SCH (07:30)
[2018-07-31 07:47] LABS: ALBUMIN 2.5 g/dL (3.4-5.0); BILIRUBIN,TOTAL 0.4 mg/dL (0.2-1.0); CALCIUM, SERUM 8.9 mg/dL (8.5-10.1); CREATININE 6.9 mg/dL (0.6-1.3); MAGNESIUM 1.9 mg/dL (1.8-2.4); POTASSIUM 4.1 mmol/L (3.5-5.1)
[2018-07-31 07:48] LABS: TOTAL PROTEIN, SERUM 6.3 g/dL (6.4-8.2)
--- NOTE | 2018-07-31 07:57 | NUR ---
RN NOTES PT IN BED, AWAKE, ALERT, AND ORIENTED X4. PT RESTING ON RA, WITH NON LABORED BREATHING AND IN NO ACUTE DISTRESS. PT WITH RIGHT LEG PAIN, 7/10, ACHING. PT GIVEN MORPHINE WILL REASSESS. PT IV ACCESS FLUSHES WELL. PT BED LOWERED, LOCKED AND CALL LIGHT WITHIN REACH. WILL CONTINUE TO MONITOR
[2018-07-31 08:00] VITALS: BP 103/56
[2018-07-31] MEDS ORDERED: POLY15DR40 EACHEYE (08:47)
[2018-07-31] MEDS ORDERED: LIDO30AD10 TP (08:47)
[2018-07-31] MEDS ORDERED: DEXTROSE 50%-WATER 50 ML DISP.SYRIN IV PRN ×2 (09:00)
[2018-07-31] MEDS ORDERED: TAPENTADOL HYDROCHLORIDE 100 MG PO SCH (11:30)
[2018-07-31] MEDS ORDERED: POLYVINYL ALCOHOL 15 ML BOTTLE EACHEYE PRN (12:00)
[2018-07-31] MEDS: BLOOD SUGAR DIAGNOSTIC 1 EACH STRIP VI SCH ×3 (12:27→21:34)
[2018-07-31] MEDS: SEVELAMER CARBONATE 800 MG TABLET PO SCH ×2 (12:40→17:14)
[2018-07-31] MEDS: GABAPENTIN 100 MG CAPSULE PO SCH ×2 (12:40→17:14)
[2018-07-31] MEDS: INSULIN REGULAR, HUMAN 100 UNIT/ML 3 ML VIAL SQ PRN ×2 (12:41→17:37)
[2018-07-31 16:00] VITALS: BP 108/42
[2018-07-31] MEDS ORDERED: NEPRO VAN 237 ML CAN PO PRN (16:00)
[2018-07-31] MEDS: CARVEDILOL 12.5 MG TABLET PO SCH (17:00)
[2018-07-31] MEDS: FERROUS SULFATE (325 MG) 325 MG/TAB TABLET PO SCH (17:13)
[2018-07-31] MEDS: PREGABALIN 100 MG CAPSULE PO SCH (17:14)
--- NOTE | 2018-07-31 18:58 | NUR ---
MS RN NOTES PATIENT IN BED RESTING NO SOB OR ACUTE DISTRESS NOTED. PATIENT ALERT, ORIENTEDX3. PAIN WAS CONTROLLED WITH MEDICATION. ALL DUE MEDICATIONS ADMINISTERED. ALL NEEDS MET. WILL ENDORSE TO PM SHIFT SADIA.
--- NOTE | 2018-07-31 19:35 | NUR ---
MS/RN NOTES RECEIVED PT. LYING IN BED. PT. IS AWAKE, ALERT AND ORIENTED X2-3. BREATHING EVEN AND UNLABORED ON ROOM AIR. NO SOB, RESPIRATORY DISTRESS OR COMPLAINTS OF PAIN NOTED AT THIS TIME. PT. NOTED WITH RIGHT LOWER QUADRANT COLOSTOMY DISCONNECTED. WILL CLEAN PATIENT AND RE-APPLY COLOSTOMY BAG. PT. WITH RIGHT WRIST 20 GAUGE IV SALINE LOCK PRESENT, PATENT AND INTACT. PT. WITH LEFT UPPER ARM HD CATH ACCESS NOTED. BED LOCKED AND IN LOWEST POSITION, SIDE RAILS UP X2, CALL LIGHT WITHIN REACH, WILL CONTINUE TO MONITOR.
[2018-07-31 20:00] VITALS: BP 137/72
[2018-07-31] MEDS: DULOXETINE HCL 30 MG CAPSULE.DR PO SCH (21:24)
[2018-07-31] MEDS: PANTOPRAZOLE 40 MG TABLET.DR PO SCH (21:24)
[2018-07-31] MEDS: *INSULIN REGULAR(HUMULIN R)HUM 100 UNIT/ML VIAL SQ PRN (21:32)
[2018-07-31] MEDS: INSULIN GLARGINE, 100 UNIT/ML CARTRIDGE SQ SCH (21:34)
--- NOTE | 2018-08-01 06:15 | NUR ---
MS/RN NOTES PT. IS SITTING UP IN BED. PT. IS AWAKE, ALERT AND ORIENTED X2-3. BREATHING EVEN AND UNLABORED ON ROOM AIR. NO SOB, RESPIRATORY DISTRESS OR COMPLAINTS OF PAIN NOTED AT THIS TIME AND THROUGHOUT SHIFT. PT. WITH RIGHT WRIST 20 GAUGE IV SALINE LOCK PRESENT, PATENT AND INTACT. PT. WITH LEFT UPPER ARM HD CATH ACCESS NOTED. PT. WITH RIGHT LOWER QUADRANT COLOSTOMY BAG PRESENT AND INTACT. ALL PT. NEEDS MET. BED LOCKED AND IN LOWEST POSITION, SIDE RAILS UP X2, CALL LIGHT WITHIN REACH, WILL ENDORSE TO DAYSDCFT NURSE FOR CONTINUITY OF CARE.
[2018-08-01] MEDS: BLOOD SUGAR DIAGNOSTIC 1 EACH STRIP VI SCH ×4 (06:31→22:56)
[2018-08-01] MEDS: INSULIN REGULAR, HUMAN 100 UNIT/ML 3 ML VIAL SQ PRN ×3 (06:33→17:33)
[2018-08-01 07:13] LABS: BASOPHILS # (AUTO) 0.1 /CMM (0.0-0.2); BASOPHILS % (AUTO) 1.1 % (0.0-2.0); HEMATOCRIT 32 % (39-51); HEMOGLOBIN 10.4 g/dL (13.5-17.5); LYMPHOCYTES # (AUTO) 1.6 /CMM (0.8-4.8); LYMPHOCYTES % (AUTO) 23.5 % (20.0-44.0); MEAN CORPUSCULAR HGB CONC 33 g/dl (31.0-36.0); MEAN CORPUSCULAR VOLUME 88 fL (80-96); MONOCYTES # (AUTO) 0.7 /CMM (0.1-1.30); MONOCYTES % (AUTO) 10.4 % (2.0-12.0); NEUTROPHILS # (AUTO) 4.2 /CMM (1.8-8.9); PLATELET COUNT (AUTO) 231 /CMM (150-450); RED BLOOD CELL COUNT(AUTO) 3.58 MIL/uL (4.5-6.0); WHITE BLOOD COUNT (AUTO) 6.8 K/uL (4.3-11.0)
[2018-08-01 07:29] LABS: CALCIUM, SERUM 9.5 mg/dL (8.5-10.1); CREATININE 6.4 mg/dL (0.6-1.3); MAGNESIUM 1.8 mg/dL (1.8-2.4); PHOSPHORUS 5.7 mg/dL (2.5-4.9); POTASSIUM 4.8 mmol/L (3.5-5.1)
--- NOTE | 2018-08-01 07:40 | NUR ---
RN OPENING NOTE PT WAS RECEIVED IN BED AT LOWEST AND LOCKED POSITION WITH SIDE RAILS UPX2, A/O X3 BREATHING EVEN AND UNLABORED ON RA, NO S/S OF ANY DISTRESS OR PAIN NOTED AT THIS TIME, IV IS PATENT AND INTACT, NOTED TO HAVE JESÚS HD CATH AND RLQ COLOSTOMY, SAFETY PRECAUTIONS IN PLACE, CALL LIGHT WITHIN REACH, WILL MONITOR PT ACCORDINGLY
[2018-08-01 08:00] VITALS: BP 121/70
[2018-08-01] MEDS: FERROUS SULFATE (325 MG) 325 MG/TAB TABLET PO SCH ×2 (08:12→17:10)
[2018-08-01] MEDS: AMLODIPINE BESYLATE 10 MG TABLET PO SCH (08:12)
[2018-08-01] MEDS: SEVELAMER CARBONATE 800 MG TABLET PO SCH ×3 (08:12→17:11)
[2018-08-01] MEDS: GABAPENTIN 100 MG CAPSULE PO SCH ×3 (08:12→17:11)
[2018-08-01] MEDS: PANTOPRAZOLE 40 MG TABLET.DR PO SCH ×2 (08:12→20:49)
[2018-08-01] MEDS: PREGABALIN 100 MG CAPSULE PO SCH ×2 (08:12→17:11)
[2018-08-01] MEDS: DULOXETINE HCL 30 MG CAPSULE.DR PO SCH ×2 (08:13→20:49)
[2018-08-01] MEDS: CARVEDILOL 12.5 MG TABLET PO SCH ×2 (08:13→17:11)
[2018-08-01] MEDS: LIDOCAINE 5% (PATCH) 1 EA PATCH TP SCH (08:13)
[2018-08-01] MEDS: MORPHINE SULFATE INJ 2 MG/ML DISP.SYRIN IV PRN ×2 (11:07→19:35)
[2018-08-01 16:00] VITALS: BP 134/73
--- NOTE | 2018-08-01 18:13 | NUR ---
RN CLOSING NOTE PT IN BED AT LOWEST AND LOCKED POSITION WITH SIDE RAILS UPX2, A/O X3 BREATHING EVEN AND UNLABORED ON RA RESTING COMFORTABLY IN BED AT THIS TIME, IV IS PATENT AND INTACT, ALL NEEDS ATTENDED TO, SAFETY PRECAUTIONS IN PLACE, CALL LIGHT WITHIN REACH, WILL ENDORSE TO VICE PRESIDENT INVESTOR RELATIONS RN FOR SADIA.
--- NOTE | 2018-08-01 19:05 | NUR ---
RN MS OPENING NOTES RECEIVED PATIENT IN BED AWAKE ALERT AND ORIENTEDX3 ABLE TO MAKE NEEDS KNOWN, RESPIRATIONS EVEN AND UNLABORED WITH EQUAL RISE AND FALL OF CHEST, DENIES ANY PAIN OR DISCOMFORT AT THIS TIME, COLOSTOMY INTACT RO RLQ, NOTED SURROUNDING SKIN WITH REDNESS PRESENT, LEFT UPPER ARM HD SITE WITH BRUIT PRESENT, RIGHT WRIST #20 G INTACT AND PATENT, NO REDNESS, NO INFILTRATION PRESENT, ORIENTED TO STAFF AND CALL LIGHT AND KEPT WITHIN REACH, LOW BED AND LOCKED, SAFETY PRECAUTIONS IN PLACE, URINAL AT BEDSIDE, ALL NEEDS ATTENDED AT THIS TIME WILL CONTINUE TO MONITOR.
--- NOTE | 2018-08-01 19:35 | NUR ---
RN MS NOTES PATIENT COMPLAINT OF PAIN TO RIGHT KNEE AND RIGHT FOOT STATES"ACHY,09/30, CAN I HAVE A SHOT OF MORPHINE" VS ASSESSED WNL MORPHINE PRN GIVEN ORDERED, WILL CONTINUE TO MONITOR FOR EFFECTIVENESS.
[2018-08-01 20:00] VITALS: BP 125/81
[2018-08-01] MEDS: INSULIN GLARGINE, 100 UNIT/ML CARTRIDGE SQ SCH (22:56)
[2018-08-01] MEDS: *INSULIN REGULAR(HUMULIN R)HUM 100 UNIT/ML VIAL SQ PRN (22:57)
[2018-08-02] MEDS: BLOOD SUGAR DIAGNOSTIC 1 EACH STRIP VI SCH ×4 (06:16→21:26)
--- NOTE | 2018-08-02 06:30 | NUR ---
RN MS CLOSING NOTES PATIENT IN BED AWAKE ALERT AND ORIENTEDX3 ABLE TO MAKE NEEDS KNOWN, RESPIRATIONS EVEN AND UNLABORED WITH EQUAL RISE AND FALL OF CHEST, DENIES ANY PAIN OR DISCOMFORT AT THIS TIME, COLOSTOMY BAD CHANGED DUE TO LEAKING REMAINS INTACT TO RLQ, NOTED SURROUNDING SKIN WITH REDNESS PRESENT, LEFT UPPER ARM HD SITE WITH BRUIT PRESENT, RIGHT WRIST #20 G INTACT AND PATENT, NO REDNESS, NO INFILTRATION PRESENT, CALL LIGHT KEPT WITHIN REACH, LOW BED AND LOCKED, SAFETY PRECAUTIONS IN PLACE, URINAL AT BEDSIDE, ALL NEEDS ATTENDED AT THIS TIME WILL CONTINUE TO MONITOR AND ENDORSE TO NEXT SHIFT, NO CHANGES THROUGHOUT SHIFT. GROIN AREA CLEANSED AND APPLIED Z GUARD SACRAL ASSESSED INTACT.NO REDNESS NOTED
[2018-08-02] MEDS: SEVELAMER CARBONATE 800 MG TABLET PO SCH ×4 (07:42→21:06)
[2018-08-02 08:00] VITALS: BP 154/93
[2018-08-02] MEDS: FERROUS SULFATE (325 MG) 325 MG/TAB TABLET PO SCH ×3 (08:45→21:06)
[2018-08-02] MEDS: PREGABALIN 100 MG CAPSULE PO SCH ×3 (08:45→21:06)
[2018-08-02] MEDS: PANTOPRAZOLE 40 MG TABLET.DR PO SCH ×2 (08:45→21:06)
[2018-08-02] MEDS: DULOXETINE HCL 30 MG CAPSULE.DR PO SCH ×2 (08:45→21:06)
[2018-08-02] MEDS: CARVEDILOL 12.5 MG TABLET PO SCH ×3 (08:47→17:18)
[2018-08-02] MEDS: AMLODIPINE BESYLATE 10 MG TABLET PO SCH (08:48)
[2018-08-02] MEDS: LIDOCAINE 5% (PATCH) 1 EA PATCH TP SCH (08:48)
[2018-08-02] MEDS: GABAPENTIN 100 MG CAPSULE PO SCH ×4 (08:57→21:06)
[2018-08-02] MEDS: INSULIN REGULAR, HUMAN 100 UNIT/ML 3 ML VIAL SQ PRN ×2 (12:13→18:07)
[2018-08-02 14:00] VITALS: BP 148/75
--- NOTE | 2018-08-02 15:48 | NUR ---
RN Note patient is resting in bed no acute distress denies pain at thiis time , all care given , will endorse to nurse Thakkar
[2018-08-02 16:00] VITALS: BP 125/78
--- NOTE | 2018-08-02 18:00 | NUR ---
M/S RN NOTES PATIENT RESTING IN BED, DIALYSIS BEING DONE. NO RESPIRATORY DISTRESS NOTED, NO C/O PAIN. SKIN WARM TO TOUCH. PATIENT'S NEEDS ATTENDED. BED ON LOW AND LOCKED POSITION. CALL LIGHT WITHIN REACH. WILL ENDORSE TO ONCOMING NURSE.
--- NOTE | 2018-08-02 19:30 | NUR ---
RN MS OPENING NOTES RECEIVED PT IN BED, AWAKE ALERT ORIENTEDX4, CURRENTLY BEING DIALYZED, BREATHING EVEN AND UNLABORED ON ROOM AIR. IV ACCESS ON THE R WRIST 20G, JESÚS HD CATH IN USE. NO COMPLAINT OF PAIN OR DISCOMFORT AT THIS TIME, BED IN LOWEST LOCKED POSITION CALL LIGHT WITHIN REACH AT ALL TIMES, WILL ENDORSE TO DAY NURSE FOR SADIA.
[2018-08-02 20:00] VITALS: BP 115/76
[2018-08-02 20:14] VITALS: BP 115/61
--- NOTE | 2018-08-02 21:12 | NUR ---
1700 MED NOT ADMINISTERED, PT BEING DIALYZED, ADMINISTERED AT 2100 INSTEAD. PT REFUSED BP MED, CURRENT BP 115/61 RISKS AND BENEFITS EXPLAINED, PT WISHES TO REFUSE, WILL CONTINUE TO MONITOR.
[2018-08-02] MEDS: INSULIN GLARGINE, 100 UNIT/ML CARTRIDGE SQ SCH (21:26)
[2018-08-02] MEDS: *INSULIN REGULAR(HUMULIN R)HUM 100 UNIT/ML VIAL SQ PRN (21:27)
[2018-08-03] MEDS: MORPHINE SULFATE INJ 2 MG/ML DISP.SYRIN IV PRN (04:16)
--- NOTE | 2018-08-03 06:09 | NUR ---
RN MS CLOSING NOTES PT REMAINS IN BED, IN BED SLEEPING, EASILY AROUSED TO NAME CALL, BREATHING EVEN AND UNLABORED ON ROOM AIR. IV ACCESS ON THE R WRIST 20G, JESÚS HD SITE. NO COMPLAINT OF PAIN OR DISCOMFORT AT THIS TIME, COLOSTOMY BAG IN PLACE. BED IN LOWEST LOCKED POSITION CALL LIGHT WITHIN REACH AT ALL TIMES, WILL ENDORSE TO DAY NURSE FOR SADIA.
[2018-08-03] MEDS: BLOOD SUGAR DIAGNOSTIC 1 EACH STRIP VI SCH ×3 (07:30→17:16)
--- NOTE | 2018-08-03 07:48 | NUR ---
RN MS OPENING NOTES Patient remains on room air, no sob noted. Patient a/o x3. Patient's blood glucose not done due to the most recent one being at 0630. Patient's bed at the lowest setting, call light within reach.
[2018-08-03 07:59] VITALS: BP 135/76
[2018-08-03] MEDS: LIDOCAINE 5% (PATCH) 1 EA PATCH TP SCH (08:10)
[2018-08-03] MEDS: GABAPENTIN 100 MG CAPSULE PO SCH ×3 (08:11→17:01)
[2018-08-03] MEDS: CARVEDILOL 12.5 MG TABLET PO SCH ×2 (08:11→17:01)
[2018-08-03] MEDS: SEVELAMER CARBONATE 800 MG TABLET PO SCH ×3 (08:11→17:02)
[2018-08-03] MEDS: PREGABALIN 100 MG CAPSULE PO SCH ×2 (08:12→17:01)
[2018-08-03] MEDS: DULOXETINE HCL 30 MG CAPSULE.DR PO SCH (08:12)
[2018-08-03] MEDS: FERROUS SULFATE (325 MG) 325 MG/TAB TABLET PO SCH ×2 (08:12→17:01)
[2018-08-03] MEDS: PANTOPRAZOLE 40 MG TABLET.DR PO SCH (08:12)
[2018-08-03] MEDS: AMLODIPINE BESYLATE 10 MG TABLET PO SCH (08:13)
--- NOTE | 2018-08-03 11:03 | NUR ---
WOUND CARE CONSULT WOUND CARE RECEIVED CONSULT FOR LOW JOSE ACALE, ABD WOUND, STOMA SITE EXCORIATIONS. WOUND CARE WILL DEFER CONSULT AND TREATMENT PLANS TO PLASTIC SURGICAL TEAM WHO ARE CURRENTLY FOLLOWING THIS PATIENT. PATIENT WITH JOSE AT 11, ALL PRESSURE ULCER PREVENTION MEASURES ARE NOTED TO BE IN PLACE AT THIS TIME. WILL SEE PRN.
[2018-08-03] MEDS: INSULIN REGULAR, HUMAN 100 UNIT/ML 3 ML VIAL SQ PRN (11:55)
[2018-08-03 16:28] VITALS: BP 129/75
[2018-08-03 17:01] VITALS: BP 129/75
--- NOTE | 2018-08-03 18:06 | NUR ---
RN MS NOTES DISCHARGE Patient discharged around 1809. Patient on room air, no sob noted. Patient's vital sign stable. Patient has all the discharge paperwork, signed. Belongings list is signed and patient has all the belongings with him. Cellphone, clothes, and tablet with him. Patient's wound is taken a photo of, and has a copy in his chart. Report given to Dayanara in [facility].
[2018-08-03] MEDS ORDERED: NYSTATIN TOP POWDER 15 GM BOTTLE TP SCH (21:00)
== END 2018-08-03 18:10 | DRG 640 ==
LOC: ER 19:02 → TELE 21:35 → MED 07-31 09:22
PROVIDERS: ADMIT Hospitalist; ATTEND Nurse Practitioner Acute Care
PROC: 5A1D70Z Performance of Urinary Filtration, Intermittent, Less than 6 Hours Per Day (ICD-10-PCS; principal; 2018-07-30)
PROC: 5A1D70Z Performance of Urinary Filtration, Intermittent, Less than 6 Hours Per Day (ICD-10-PCS; 2018-07-31)
PROC: 5A1D70Z Performance of Urinary Filtration, Intermittent, Less than 6 Hours Per Day (ICD-10-PCS; 2018-08-02)
DX: E87.5 Hyperkalemia (principal); N18.6 End stage renal disease; E44.1 Mild protein-calorie malnutrition; I12.0 Hypertensive chronic kidney disease with stage 5 chronic kidney disease or end stage renal disease; E11.22 Type 2 diabetes mellitus with diabetic chronic kidney disease; E87.1 Hypo-osmolality and hyponatremia; E11.65 Type 2 diabetes mellitus with hyperglycemia; L30.4 Erythema intertrigo; I25.10 Atherosclerotic heart disease of native coronary artery without angina pectoris; Z99.2 Dependence on renal dialysis; Z91.15 Patient's noncompliance with renal dialysis; N25.0 Renal osteodystrophy; D63.1 Anemia in chronic kidney disease; F32.9 Major depressive disorder, single episode, unspecified; E66.9 Obesity, unspecified; Z68.27 Body mass index [BMI] 27.0-27.9, adult; Z71.3 Dietary counseling and surveillance; M10.9 Gout, unspecified; E88.09 Other disorders of plasma-protein metabolism, not elsewhere classified; R74.0 Nonspecific elevation of levels of transaminase and lactic acid dehydrogenase [LDH]; L98.8 Other specified disorders of the skin and subcutaneous tissue; L90.5 Scar conditions and fibrosis of skin; Z79.4 Long term (current) use of insulin
CPT/HCPCS: 36415; 80048-TC; 80053-TC; 80061-TC; 80076-TC; 82962-TC; 83735-TC; 84100-TC; 84443-TC; 85025-TC; 86706; 86803; 87081-TC; 87340; 90935-TC; A6253; A6403; G0378; J1815; J1940; J2270; J7040

== ENCOUNTER 2018-08-13 13:05 | Inpatient (IN) | payer BC ==
[~2018-08-13] VITALS: Ht 170.2 cm; Wt 75.5 kg
[~2018-08-13 13:05] MED LIST changes: -ACET-868 PO; -ALBU1.25 MC; -ALBU2.5V13 NEB; +AMLO10TA7 PO; -BENA40TA8 PO; -CALC667C PO; +CARV12.52 PO; -CARV6.25 PO; -CLON0.2T PO; -DOCU-141 PO; +DULO30CA2 PO; +FERR325T23 PO; -FURO80TA85 PO; -GABA-534 PO; +GABA100C PO; -HYDR-4075 PO; +HYDR-4354 PO; +LIDO30AD10 TP; +LORA-259 PO; -MORP15TA10 PO; -ONDA4TAB8 PO; +PANT40TA2 PO; +POLY15DR40 EACHEYE; +PREG100C PO; +SEVE800T8 PO; +TAPE100T2 PO; -TERA10CA4 PO; +ZOLP5TAB2 PO
--- NOTE | 2018-08-13 13:12 | NUR ---
PT MATTHEW LATHAM TO ED BED 04. PRESENTS W/ R HAND SWELLING AND PAIN S/P BURNING IT W/ CIGARETTE 5 DAYS AGO. PT IS DIALYSIS PT. LAST DIALIZED YESTERDAY. GOWNED AND PLACED ON MONITOR. AWAITING MD HAIR.
--- NOTE | 2018-08-13 13:19 | NUR ---
DOT LATHAM AT BEDSIDE FOR EVAL.
[2018-08-13] MEDS ORDERED: FOLI0.8T23 PO (13:23)
[2018-08-13] MEDS ORDERED: INSU100V7 SQ (13:23)
[2018-08-13] MEDS ORDERED: INSU100V3 SQ (13:23)
[2018-08-13] MEDS ORDERED: SULF1TAB48 PO (13:23)
[2018-08-13] MEDS ORDERED: HYDR-3974 PO (13:23)
[2018-08-13] MEDS ORDERED: ACET-868 PO (13:23)
[2018-08-13] MEDS ORDERED: PANT40TA2 PO (13:23)
[2018-08-13] MEDS ORDERED: BLOO-668 IN (13:23)
[2018-08-13] MEDS ORDERED: ACET-2605 PO (13:23)
--- NOTE | 2018-08-13 13:32 | NUR ---
IV LINE STARTED BLOOD DRAWN AND SENT TO LAB.
[2018-08-13 13:43] LABS: BASOPHILS # (AUTO) 0.1 /CMM (0.0-0.2); BASOPHILS % (AUTO) 0.8 % (0.0-2.0); EOSINOPHILS % (AUTO) 1.3 % (0.0-6.0); HEMATOCRIT 27 % (39-51); HEMOGLOBIN 8.8 g/dL (13.5-17.5); LYMPHOCYTES # (AUTO) 0.7 /CMM (0.8-4.8); LYMPHOCYTES % (AUTO) 7.5 % (20.0-44.0); MEAN CORPUSCULAR HGB CONC 33 g/dl (31.0-36.0); MEAN CORPUSCULAR VOLUME 91 fL (80-96); MONOCYTES # (AUTO) 0.9 /CMM (0.1-1.30); MONOCYTES % (AUTO) 8.9 % (2.0-12.0); NEUTROPHILS % (AUTO) 81.5 % (43.0-81.0); PLATELET COUNT (AUTO) 182 /CMM (150-450); RED BLOOD CELL COUNT(AUTO) 2.97 MIL/uL (4.5-6.0); WHITE BLOOD COUNT (AUTO) 9.8 K/uL (4.3-11.0)
[2018-08-13 13:51] LABS: POTASSIUM 4.4 mmol/L (3.5-5.1)
[2018-08-13 13:52] LABS: CALCIUM, SERUM 8.8 mg/dL (8.5-10.1); CREATININE 6.6 mg/dL (0.6-1.3)
[2018-08-13 13:53] LABS: BILIRUBIN,DIRECT 0.1 mg/dL (0.0-0.2); BILIRUBIN,TOTAL 0.4 mg/dL (0.2-1.0)
[2018-08-13 13:54] LABS: ALBUMIN 2.3 g/dL (3.4-5.0); TOTAL PROTEIN, SERUM 6.4 g/dL (6.4-8.2)
[2018-08-13] MEDS: VANCOMYCIN 1 GM in IV D5W 250 ML IV ONE ×2 (14:00→15:41)
[2018-08-13] MEDS ORDERED: PIPERACILLIN /TAZOBACTAM 3.375 G in IV D5W 50 ML IV ONE (14:00)
--- NOTE | 2018-08-13 14:05 | NUR ---
RADIOLOGY AT BEDSIDE FOR R HAND/MARQUES XRAY.
[2018-08-13] MEDS ORDERED: INSULIN REGULAR, HUMAN 100 UNIT/ML 10 ML VIAL ONE (14:10)
--- NOTE | 2018-08-13 14:29 | NUR ---
326-2 M/S CANDICE DURAND NP
[2018-08-13] MEDS ORDERED: INSULIN REGULAR, HUMAN 100 UNIT/ML 10 ML VIAL SQ ONE (14:30)
[2018-08-13] MEDS ORDERED: ACETAMINOPHEN ES 500 MG TABLET ONE (14:48)
[2018-08-13] MEDS ORDERED: IV NS 0.9% 1,000 ML BAG IV ONE (15:00)
[2018-08-13] MEDS ORDERED: ACETAMINOPHEN 325 MG TABLET PO ONE (15:00)
--- NOTE | 2018-08-13 15:25 | NUR ---
PT TO RADIOLOGY FOR R UPPER EXTREMITY CT SCAN VIA [facility].
--- NOTE | 2018-08-13 15:34 | NUR ---
REPORT GIVEN TO LAURIE. PT AWAITING TRANSFER TO FLOOR.
[2018-08-13 16:00] VITALS: BP 99/57
--- NOTE | 2018-08-13 16:15 | NUR ---
M/S RN NOTES PATIENT ADMITTED ALERT AND ORIENTED X4, NO RESPIRATORY DISTRESS NOTED. DENIES ANY PAIN AT THIS TIME. SKIN WARM TO TOUCH. SKIN ASSESSED, PHOTOS TAKEN AND IN CHART. IV VANCO INFUSING ON THE RFA #18G STARTED IN ER. PATIENT'S BELONGINGS ACCOUNTED FOR AND SIGNED. BELONGINGS AT BEDSIDE. NOTIFIED YUMIKO COMBS FOR ADMISSION ORDERS. CARRIED OUT ORDERS PER LARD RENDERER. BED ON LOWEST LOCKED POSITION, CALL LIGHT WITHIN REACH.
[2018-08-13] MEDS ORDERED: ONDANSETRON HCL/PF 4 MG/2 ML VIAL IVP PRN (16:30)
[2018-08-13] MEDS ORDERED: MAGNESIUM HYDROXIDE 30 ML UDC PO PRN (16:30)
[2018-08-13] MEDS ORDERED: DEXTROSE 50%-WATER 50 ML DISP.SYRIN IV PRN (16:30)
[2018-08-13] MEDS ORDERED: ACETAMINOPHEN 325 MG TABLET PO PRN ×2 (16:30)
[2018-08-13] MEDS ORDERED: MAG HYDROX/AL HYDROX/SIMETH 30 ML UDC PO PRN (16:30)
[2018-08-13] MEDS ORDERED: Z GUARD REMEDY 2 OZ OINT TP PRN (16:30)
--- NOTE | 2018-08-13 16:55 | NUR ---
M/S RN NOTES RECEIVED CRITICAL LAB OF LACTIC ACID OF 2.5 FROM DERRICK IN LAB. NOTIFIED LAURYN CALDERON AND AWAITING FOR ORDERS.
[2018-08-13] MEDS: CARVEDILOL 12.5 MG TABLET PO SCH (17:00)
[2018-08-13] MEDS: IV NS 0.9% 1,000 ML IV PRN (17:21)
[2018-08-13] MEDS ORDERED: POLYVINYL ALCOHOL 15 ML BOTTLE EACHEYE PRN (17:30)
[2018-08-13] MEDS ORDERED: TAPENTADOL HYDROCHLORIDE 100 MG PO SCH (18:00)
[2018-08-13] MEDS: BLOOD SUGAR DIAGNOSTIC 1 EACH STRIP VI SCH ×2 (18:01→22:04)
[2018-08-13] MEDS: *INSULIN REGULAR(HUMULIN R)HUM 100 UNIT/ML VIAL SQ PRN ×2 (18:05→21:53)
[2018-08-13] MEDS: SEVELAMER CARBONATE 800 MG TABLET PO SCH (18:10)
[2018-08-13] MEDS: GABAPENTIN 100 MG CAPSULE PO SCH (18:11)
[2018-08-13] MEDS: PREGABALIN 100 MG CAPSULE PO SCH (18:11)
[2018-08-13] MEDS: FERROUS SULFATE (325 MG) 325 MG/TAB TABLET PO SCH (18:11)
[2018-08-13] MEDS: HYDROCODONE/APAP 10/325MG 1 EA TABLET PO PRN ×2 (18:11→22:26)
[2018-08-13] MEDS: PANTOPRAZOLE 40 MG TABLET.DR PO SCH (18:13)
[2018-08-13] MEDS ORDERED: IV NS 0.9% 500 ML IV ONE (19:30)
--- NOTE | 2018-08-13 19:45 | NUR ---
RN PM OPENING NOTE. BEDSIDE REPORT RECIEVED FROM LAURIE HERNANDEZ. NS BOLOUS INFUSED AND NS AT 50 M RESTARTED TO RIGHT FOREARM 18. NO S/S OF INFILTRATION. REVIEWED POC WITH PATIENT. QUESTIONS CONCERNS ADDRESSED. PATIENT STATES THAT IT IS OK TO SPEAK WITH IN REGARDS TO TREATMENT STATES, "SHES THE ONLY ONE I GOT AND ITS OK TO SPEAK WITH HER ABOUT ME. I KNOW HIPPA MAKES IT HARD FOR HER TO GET UPDATES OVER THE PHONE.." BED DOWN LOCKED. WOUND CULTURE FROM RIGHT HAND TAKEN. CALL LIGHT IN REACH. SRX2 VERBALIZED UNDERSTANDING TO CALL FOR ASSISTANCE NEEDED.
[2018-08-13 20:00] VITALS: BP 122/70
[2018-08-13 20:31] VITALS: BP 96/49
[2018-08-13] MEDS: DULOXETINE HCL 30 MG CAPSULE.DR PO SCH (21:57)
[2018-08-13] MEDS ORDERED: INSULIN GLARGINE, 100 UNIT/ML CARTRIDGE SQ SCH (22:00)
--- NOTE | 2018-08-13 23:44 | NUR ---
Was recently discharged and readmitted less than two weeks. Has ESRD and receives hemodialysis at [facility] [phone] [facility] @ 9614. Patient resides at at [facility] [phone] and plan to return to SNF when discharge. Addendum: 08/13/18 at 2345 by LUPE GREGORY RN Amended: Links added.
[2018-08-14] MEDS: HYDROCODONE/APAP 10/325MG 1 EA TABLET PO PRN ×3 (04:10→12:12)
[2018-08-14 06:44] LABS: BASOPHILS % (AUTO) 0.5 % (0.0-2.0); EOSINOPHILS % (AUTO) 3.8 % (0.0-6.0); HEMATOCRIT 25 % (39-51); HEMOGLOBIN 8.3 g/dL (13.5-17.5); LYMPHOCYTES # (AUTO) 0.7 /CMM (0.8-4.8); LYMPHOCYTES % (AUTO) 10.2 % (20.0-44.0); MEAN CORPUSCULAR HGB CONC 33 g/dl (31.0-36.0); MEAN CORPUSCULAR VOLUME 90 fL (80-96); MONOCYTES # (AUTO) 0.4 /CMM (0.1-1.30); MONOCYTES % (AUTO) 6.9 % (2.0-12.0); NEUTROPHILS # (AUTO) 5.1 /CMM (1.8-8.9); NEUTROPHILS % (AUTO) 78.6 % (43.0-81.0); PLATELET COUNT (AUTO) 155 /CMM (150-450); RED BLOOD CELL COUNT(AUTO) 2.83 MIL/uL (4.5-6.0); WHITE BLOOD COUNT (AUTO) 6.4 K/uL (4.3-11.0)
[2018-08-14 07:03] LABS: THYROID STIMULATING HORMONE 1.216 uIU/mL (0.358-3.74)
--- NOTE | 2018-08-14 07:05 | NUR ---
CLOSING NOTE RN PM. BEDSIDE REPORT GIVEN TO NILDA HERNANDEZ. NS AT 49 M RESTARTED TO RIGHT FOREARM 18. NO S/S OF INFILTRATION. REVIEWED POC WITH PATIENT. QUESTIONS CONCERNS ADDRESSED. PATIENT STATES THAT IT IS OK TO SPEAK WITH IN REGARDS TO TREATMENT AND HER NAME IS YI. BED DOWN LOCKED. CALL LIGHT IN REACH. SRX2 VERBALIZED UNDERSTANDING TO CALL FOR ASSISTANCE NEEDED.
[2018-08-14 07:12] LABS: CALCIUM, SERUM 8.3 mg/dL (8.5-10.1); MAGNESIUM 1.9 mg/dL (1.8-2.4); PHOSPHORUS 4.1 mg/dL (2.5-4.9); POTASSIUM 4.3 mmol/L (3.5-5.1)
[2018-08-14 07:14] LABS: CREATININE 7.5 mg/dL (0.6-1.3)
[2018-08-14] MEDS ORDERED: PANTOPRAZOLE 40 MG TABLET.DR PO SCH (07:30)
[2018-08-14] MEDS: BLOOD SUGAR DIAGNOSTIC 1 EACH STRIP VI SCH ×4 (07:32→21:11)
[2018-08-14] MEDS: *INSULIN REGULAR(HUMULIN R)HUM 100 UNIT/ML VIAL SQ PRN ×2 (07:32→21:06)
--- NOTE | 2018-08-14 07:47 | NUR ---
RN MS OPENING NOTES Received patient on room air, no sob noted. Patient denies pain at this time in his right hand. Patient a/o x4. Bed at the lowest setting, call light within reach.
[2018-08-14 08:00] VITALS: BP 118/58
[2018-08-14] MEDS: FERROUS SULFATE (325 MG) 325 MG/TAB TABLET PO SCH ×2 (08:14→17:31)
[2018-08-14] MEDS: VITAMIN B COMP W-C 1 TAB TABLET PO SCH (08:14)
[2018-08-14] MEDS: DULOXETINE HCL 30 MG CAPSULE.DR PO SCH ×2 (08:15→21:06)
[2018-08-14] MEDS: FOLIC ACID 1 MG TABLET PO SCH (08:15)
[2018-08-14] MEDS: SEVELAMER CARBONATE 800 MG TABLET PO SCH ×3 (08:15→17:31)
[2018-08-14] MEDS: NICOTINE PATCH (14MG) 14 MG PATCH.TD24 TD SCH (08:16)
[2018-08-14] MEDS: GABAPENTIN 100 MG CAPSULE PO SCH ×3 (08:16→17:31)
[2018-08-14] MEDS: PANTOPRAZOLE 40 MG TABLET.DR PO SCH ×2 (08:16→17:31)
[2018-08-14] MEDS: PREGABALIN 100 MG CAPSULE PO SCH ×2 (08:18→17:31)
[2018-08-14] MEDS: AMLODIPINE BESYLATE 10 MG TABLET PO SCH (09:00)
[2018-08-14] MEDS: CARVEDILOL 12.5 MG TABLET PO SCH ×2 (09:00→17:00)
[2018-08-14] MEDS: INSULIN REGULAR, HUMAN 100 UNIT/ML 3 ML VIAL SQ PRN ×2 (12:01→17:45)
[2018-08-14] MEDS ORDERED: LIDOCAINE 1%-EPI 1:100,000 20 ML VIAL TP ONE (13:00)
[2018-08-14] MEDS ORDERED: FEE PK DOSING 1 MIN EA MC ONE (13:54)
[2018-08-14 16:00] VITALS: BP 110/70
[2018-08-14] MEDS: PIPERACILLIN /TAZOBACTAM 2.25 G in IV D5W 50 ML IV SCH (17:04)
[2018-08-14] MEDS ORDERED: VANCOMYCIN 1 GM in IV D5W 250ml IV ONE (18:00)
--- NOTE | 2018-08-14 18:55 | NUR ---
RN MS NOTES Patient remains on room air, no sob noted. Vital signs stable all shift, patient refused his BP medications due to it being around 110/70, he stated that he was comfortable in not taking his BP medications at this time. Patient's ileostomy dry and was drained twice, no redness or rashes seen around the stoma. Patient's IV access shows no obstruction and is flowing properly. Patient could not provide UA at this time. Bed at the lowest setting, call light within reach.
--- NOTE | 2018-08-14 19:10 | NUR ---
CHANGE OF SHIFT REPORT Patient in bed, awake, A/O x 4. Right hand dressing intact, reports minimal pain at this time. Stable oxygen saturation on RA. Right quadrant abdomen ileostomy with pouch in place. Had HD today per report. RFA peripheral line with IV vancomycin infusing. Instruction to use call light for assistance, verbalized understanding.
[2018-08-14 20:00] VITALS: BP 122/70
[2018-08-14] MEDS: CLOTRIMAZOLE 1% 15 GM TUBE TP SCH (20:13)
[2018-08-14] MEDS: NEOMY SULF/BACITRAC ZN/POLY 15 GM TUBE TP SCH (20:14)
[2018-08-14] MEDS: HYDROCODONE/APAP 5/325MG 1 EACH TABLET PO PRN (20:56)
[2018-08-14] MEDS: INSULIN GLARGINE, 100 UNIT/ML CARTRIDGE SQ SCH (21:10)
[2018-08-15] MEDS: PIPERACILLIN /TAZOBACTAM 2.25 G in IV D5W 50 ML IV SCH ×4 (00:33→22:03)
[2018-08-15] MEDS: IV NS 0.9% 1,000 ML IV PRN ×2 (01:24→19:56)
--- NOTE | 2018-08-15 06:20 | NUR ---
END OF SHIFT REPORT Patient in bed. Stable oxygen saturation on RA. IVF maintained at 50 ml/hr, on IV antibiotic as scheduled, VSS. Right hand/finger dressing intact, pain controlled with PRN Weinert, denies nausea, no vomiting. RLQ ileostomy care done, pouch changed. Left upper arm AV fistula, no s/s of bleeding. Instruction to use call light for assistance, verbalized understanding.
[2018-08-15 07:16] LABS: BASOPHILS # (AUTO) 0.1 /CMM (0.0-0.2); BASOPHILS % (AUTO) 0.9 % (0.0-2.0); EOSINOPHILS % (AUTO) 2.7 % (0.0-6.0); HEMATOCRIT 25 % (39-51); HEMOGLOBIN 8.3 g/dL (13.5-17.5); LYMPHOCYTES # (AUTO) 1.2 /CMM (0.8-4.8); LYMPHOCYTES % (AUTO) 17.5 % (20.0-44.0); MEAN CORPUSCULAR HGB CONC 33 g/dl (31.0-36.0); MEAN CORPUSCULAR VOLUME 88 fL (80-96); MONOCYTES # (AUTO) 0.5 /CMM (0.1-1.30); MONOCYTES % (AUTO) 7.1 % (2.0-12.0); NEUTROPHILS # (AUTO) 4.9 /CMM (1.8-8.9); NEUTROPHILS % (AUTO) 71.8 % (43.0-81.0); PLATELET COUNT (AUTO) 185 /CMM (150-450); RED BLOOD CELL COUNT(AUTO) 2.85 MIL/uL (4.5-6.0); WHITE BLOOD COUNT (AUTO) 6.8 K/uL (4.3-11.0)
[2018-08-15 07:21] LABS: CALCIUM, SERUM 8.3 mg/dL (8.5-10.1); CREATININE 6.6 mg/dL (0.6-1.3); MAGNESIUM 1.8 mg/dL (1.8-2.4); PHOSPHORUS 3.3 mg/dL (2.5-4.9); POTASSIUM 4.9 mmol/L (3.5-5.1)
--- NOTE | 2018-08-15 07:27 | NUR ---
RN MS OPENING NOTES Received patient on room air, no sob noted. Hand dressing intact. Patient remains a/o x4. Bed at the lowest setting, call light within reach. IVF remains at 50 mL/hr, Left upper arm fistula. RLQ ileostomy present.
[2018-08-15] MEDS: BLOOD SUGAR DIAGNOSTIC 1 EACH STRIP VI SCH ×4 (07:50→22:00)
[2018-08-15] MEDS: HYDROCODONE/APAP 10/325MG 1 EA TABLET PO PRN (08:19)
[2018-08-15] MEDS: GABAPENTIN 100 MG CAPSULE PO SCH ×3 (08:25→16:43)
[2018-08-15] MEDS: PREGABALIN 100 MG CAPSULE PO SCH ×2 (08:25→16:42)
[2018-08-15] MEDS: SEVELAMER CARBONATE 800 MG TABLET PO SCH ×3 (08:26→17:14)
[2018-08-15] MEDS: FOLIC ACID 1 MG TABLET PO SCH (08:27)
[2018-08-15] MEDS: VITAMIN B COMP W-C 1 TAB TABLET PO SCH (08:27)
[2018-08-15] MEDS: FERROUS SULFATE (325 MG) 325 MG/TAB TABLET PO SCH ×2 (08:27→16:43)
[2018-08-15] MEDS: PANTOPRAZOLE 40 MG TABLET.DR PO SCH ×2 (08:27→16:42)
[2018-08-15] MEDS: DULOXETINE HCL 30 MG CAPSULE.DR PO SCH ×2 (08:28→21:53)
[2018-08-15] MEDS: AMLODIPINE BESYLATE 10 MG TABLET PO SCH (08:31)
[2018-08-15] MEDS: NEOMY SULF/BACITRAC ZN/POLY 15 GM TUBE TP SCH ×2 (08:31→16:43)
[2018-08-15] MEDS: CLOTRIMAZOLE 1% 15 GM TUBE TP SCH ×2 (08:31→16:43)
[2018-08-15] MEDS: NICOTINE PATCH (14MG) 14 MG PATCH.TD24 TD SCH (08:31)
[2018-08-15] MEDS: CARVEDILOL 12.5 MG TABLET PO SCH ×2 (08:31→16:43)
[2018-08-15] MEDS: MORPHINE SULFATE INJ 2 MG/ML DISP.SYRIN IV PRN ×2 (11:17→22:30)
[2018-08-15 12:03] LABS: APPEARANCE,URINE SL CLOUDY (CLEAR); BILIRUBIN,URINE NEGATIVE (NEGATIVE); BLOOD, URINE NEGATIVE Ery/uL (NEGATIVE); COLOR,URINE DARK YELLO (YELLOW); KETONES,URINE NEGATIVE (NEGATIVE); LEUKOCYTE ESTERASE ,URINE TRACE (NEGATIVE); NITRITE, URINE NEGATIVE (NEGATIVE); PH,URINE 5.5 (5.0-8.0); PROTEIN,URINE 2+ mg/dl (NEGATIVE); UGLUCOSE TRACE mg/dL (NEGATIVE); UROBILINOGEN,URINE 0.2 EU/dL (0.2)
[2018-08-15] MEDS: INSULIN REGULAR, HUMAN 100 UNIT/ML 3 ML VIAL SQ PRN ×2 (12:14→18:04)
[2018-08-15 13:06] LABS: RBC,URINE 0-2 /HPF (0-2)
[2018-08-15 13:07] LABS: SQUAMOUS EPITHELIAL CELL,UR Few /HPF (None Seen)
[2018-08-15 13:08] LABS: BACTERIA,URINE Few /HPF (None Seen); COARSE GRANULAR CASTS,URINE Few /LPF (None Seen)
[2018-08-15] MEDS: HYDROCODONE/APAP 5/325MG 1 EACH TABLET PO PRN (13:46)
[2018-08-15 16:00] VITALS: BP 109/29
[2018-08-15] MEDS: LACTOBACILLUS RHAMNOSUS GG 1 EACH CAP.SPRINK PO SCH (16:43)
--- NOTE | 2018-08-15 18:18 | NUR ---
RN MS CLOSING NOTES Patient remains on room air, no sob noted. Patient a/o x4. Patient's IVF remains at 50 mL/hour and flowing with no obstruction. Right hand's dressing changed, wound culture sample taken and sent to lab. NO HD today. Patient's ileostomy changed around 1700, no leak, and is adhered to the stoma well. Midline placed around 1530 on patients Right arm, 18 gauge. Bed at the lowest setting, call light within reach. Will give report to NOC RN for SADIA.
--- NOTE | 2018-08-15 19:05 | NUR ---
RN MS NOTES Patient positive for MRSA, NARES per [facility]. Charge nurse aware.
[2018-08-15] MEDS: *INSULIN REGULAR(HUMULIN R)HUM 100 UNIT/ML VIAL SQ PRN ×2 (21:58→22:01)
[2018-08-15] MEDS: INSULIN GLARGINE, 100 UNIT/ML CARTRIDGE SQ SCH (21:59)
[2018-08-15] MEDS: MUPIROCIN OINT 2% 22 GM TUBE SCH (22:00)
[2018-08-16] MEDS: PIPERACILLIN /TAZOBACTAM 2.25 G in IV D5W 50 ML IV SCH ×2 (06:09→14:53)
[2018-08-16] MEDS: BLOOD SUGAR DIAGNOSTIC 1 EACH STRIP VI SCH ×4 (06:40→21:27)
[2018-08-16] MEDS: INSULIN REGULAR, HUMAN 100 UNIT/ML 3 ML VIAL SQ PRN ×3 (06:49→18:16)
--- NOTE | 2018-08-16 07:02 | NUR ---
rn notes received patient awake in bed with no distress noted. breathing even and unlabored. complained of pain in right hand, morphine and norco given with relief. s/p debridement of right hand cellulitis wound. positive for mrsa nares. room changed from 326 bed 2 to 323 bed 1, no distress noted. kept clean and dry. will endorse to am shift for continuity of care
[2018-08-16 07:08] LABS: BASOPHILS # (AUTO) 0.1 /CMM (0.0-0.2); BASOPHILS % (AUTO) 0.9 % (0.0-2.0); EOSINOPHILS % (AUTO) 2.8 % (0.0-6.0); HEMATOCRIT 22 % (39-51); HEMOGLOBIN 7.1 g/dL (13.5-17.5); LYMPHOCYTES % (AUTO) 14.3 % (20.0-44.0); MEAN CORPUSCULAR HGB CONC 33 g/dl (31.0-36.0); MEAN CORPUSCULAR VOLUME 89 fL (80-96); MONOCYTES # (AUTO) 0.5 /CMM (0.1-1.30); MONOCYTES % (AUTO) 7.2 % (2.0-12.0); NEUTROPHILS # (AUTO) 5.2 /CMM (1.8-8.9); NEUTROPHILS % (AUTO) 74.8 % (43.0-81.0); PLATELET COUNT (AUTO) 193 /CMM (150-450); RED BLOOD CELL COUNT(AUTO) 2.45 MIL/uL (4.5-6.0)
[2018-08-16 07:26] LABS: CALCIUM, SERUM 6.9 mg/dL (8.5-10.1); CREATININE 6.7 mg/dL (0.6-1.3); MAGNESIUM 1.5 mg/dL (1.8-2.4); PHOSPHORUS 3.3 mg/dL (2.5-4.9); POTASSIUM 4.7 mmol/L (3.5-5.1)
[2018-08-16 08:21] VITALS: BP 99/47
[2018-08-16] MEDS: FOLIC ACID 1 MG TABLET PO SCH (08:59)
[2018-08-16] MEDS: HYDROCODONE/APAP 5/325MG 1 EACH TABLET PO PRN ×3 (08:59→21:41)
[2018-08-16] MEDS: PREGABALIN 100 MG CAPSULE PO SCH ×2 (08:59→16:47)
[2018-08-16] MEDS: FERROUS SULFATE (325 MG) 325 MG/TAB TABLET PO SCH ×2 (08:59→16:47)
[2018-08-16] MEDS: CARVEDILOL 12.5 MG TABLET PO SCH ×2 (09:00→16:48)
[2018-08-16] MEDS ORDERED: MUPIROCIN OINT 2% 22 GM TUBE SCH (09:00)
[2018-08-16] MEDS: VITAMIN B COMP W-C 1 TAB TABLET PO SCH (09:00)
[2018-08-16] MEDS: PANTOPRAZOLE 40 MG TABLET.DR PO SCH ×2 (09:00→16:47)
[2018-08-16] MEDS: SEVELAMER CARBONATE 800 MG TABLET PO SCH ×3 (09:00→18:17)
[2018-08-16] MEDS: NICOTINE PATCH (14MG) 14 MG PATCH.TD24 TD SCH (09:00)
[2018-08-16] MEDS: GABAPENTIN 100 MG CAPSULE PO SCH ×3 (09:00→16:47)
[2018-08-16] MEDS: AMLODIPINE BESYLATE 10 MG TABLET PO SCH (09:00)
[2018-08-16] MEDS: DULOXETINE HCL 30 MG CAPSULE.DR PO SCH ×2 (09:00→21:27)
[2018-08-16] MEDS: LACTOBACILLUS RHAMNOSUS GG 1 EACH CAP.SPRINK PO SCH ×2 (09:02→16:47)
[2018-08-16] MEDS: MUPIROCIN OINT 2% 22 GM TUBE SCH ×2 (09:03→21:49)
--- NOTE | 2018-08-16 10:06 | NUR ---
RN NOTES CALLED PHARMACY LOTRIMIN AND NEOSPORIN NOT AT BEDSIDE AND NOT IN PATIENT'S CASSETTE. WILL ADMINISTER ONCE MEDICATIONS BECOME AVAILABLE.
[2018-08-16] MEDS: CLOTRIMAZOLE 1% 15 GM TUBE TP SCH ×2 (10:34→16:46)
[2018-08-16] MEDS: NEOMY SULF/BACITRAC ZN/POLY 15 GM TUBE TP SCH ×2 (10:35→16:46)
[2018-08-16 16:14] VITALS: BP 140/74
--- NOTE | 2018-08-16 19:02 | NUR ---
RN CLOSING NOTES PT AWAKE AND ALERT. CURRENTLY BEING DIALYZED. NO COMPLAINTS OF PAIN, SOB OR DISTRESS AT THIS TIME. PT HAS R UPPER ARM MIDLINE. SAFETY PRECAUTIONS IN PLACE, BED IN LOWEST LOCKED POSITION, X2 SIDE RAILS UP AND CALL LIGHT WITHIN REACH. WILL ENDORSE TO FUR PLUCKER NURSE FOR CONTINUITY OF CARE.
--- NOTE | 2018-08-16 19:25 | NUR ---
MS/RN OPENING NOTES PT RECEIVED ASLEEP, WITH ONGOING DIALYSIS TO JESÚS FISTULA. RESPONSIVE TO NAME. ON ROOM AIR, BREATHING EVEN AND UNLABORED. DENIES SOB AND PAIN AT THIS TIME. SIRIA MIDLINE PATENT AND INTACT. RLQ ILEOSTOMY PRESENT. NO NEEDS EXPRESSED AT THIS TIME. BED IN LOW/LOCKED POSITION WITH CALL LIGHT IN REACH. BILAT. UPPER SIDE RAILS IN PLACE. WILL CONTINUE TO MONITOR
[2018-08-16 20:00] VITALS: BP 122/30
--- NOTE | 2018-08-16 21:13 | NUR ---
HD COMPLETED 1,500CC OUTPUT BP 148/58, HR 66 PT SITTING UP, RESTING COMFORTABLY IN BED. NO NEEDS EXPRESSED AT THIS TIME
[2018-08-16] MEDS: VANCOMYCIN 500 MG in IV D5W 100 ML IV PRN (21:28)
[2018-08-16] MEDS: INSULIN GLARGINE, 100 UNIT/ML CARTRIDGE SQ SCH (21:38)
[2018-08-16] MEDS: *INSULIN REGULAR(HUMULIN R)HUM 100 UNIT/ML VIAL SQ PRN (21:39)
[2018-08-17] MEDS: PIPERACILLIN /TAZOBACTAM 2.25 G in IV D5W 50 ML IV SCH ×4 (00:34→22:22)
[2018-08-17] MEDS: HYDROCODONE/APAP 5/325MG 1 EACH TABLET PO PRN ×3 (01:55→21:50)
[2018-08-17 06:29] LABS: BASOPHILS # (AUTO) 0.1 /CMM (0.0-0.2); BASOPHILS % (AUTO) 0.8 % (0.0-2.0); EOSINOPHILS % (AUTO) 3.1 % (0.0-6.0); HEMATOCRIT 24 % (39-51); MEAN CORPUSCULAR HGB CONC 33 g/dl (31.0-36.0); MEAN CORPUSCULAR VOLUME 88 fL (80-96); MONOCYTES # (AUTO) 0.5 /CMM (0.1-1.30); MONOCYTES % (AUTO) 7.5 % (2.0-12.0); NEUTROPHILS # (AUTO) 4.6 /CMM (1.8-8.9); NEUTROPHILS % (AUTO) 72.6 % (43.0-81.0); PLATELET COUNT (AUTO) 219 /CMM (150-450); RED BLOOD CELL COUNT(AUTO) 2.74 MIL/uL (4.5-6.0); WHITE BLOOD COUNT (AUTO) 6.4 K/uL (4.3-11.0)
[2018-08-17] MEDS: BLOOD SUGAR DIAGNOSTIC 1 EACH STRIP VI SCH ×4 (06:43→21:53)
[2018-08-17] MEDS: INSULIN REGULAR, HUMAN 100 UNIT/ML 3 ML VIAL SQ PRN ×3 (06:56→17:45)
[2018-08-17] MEDS: MORPHINE SULFATE INJ 2 MG/ML DISP.SYRIN IV PRN (07:07)
[2018-08-17 07:10] LABS: CALCIUM, SERUM 7.8 mg/dL (8.5-10.1); CREATININE 6.4 mg/dL (0.6-1.3); MAGNESIUM 1.7 mg/dL (1.8-2.4); POTASSIUM 4.8 mmol/L (3.5-5.1)
--- NOTE | 2018-08-17 07:15 | NUR ---
MS/RN CLOSING NOTES PT ASLEEP, RESPONSIVE TO NAME. ON ROOM AIR, BREATHING EVEN AND UNLABORED. DENIES SOB, STILL WITH PAIN TO RIGHT HAND, RECENTLY RECEIVED PRN MORPHINE. RLQ ILEOSTOMY IN PLACE AND EMPTIED PRN. JESÚS HD FISTULA NOTED WITHOUT BLEEDING. S/P HD YESTERDAY WITH 1500CC OUT. SIRIA MIDLINE PATENT AND INTACT. NO SIGNIFICANT CHANGES OVERNIGHT. DRESSING CHANGE DONE. PAIN MANAGED WITH PRN PAIN MEDS. BED IN LOW/LOCKED POSITION WITH CALL LIGHT IN REACH. HOB ELEVATED. BILAT. UPPER SIDE RAILS IN PLACE. ENDORSED TO DAY SHIFT RN SADIA.
--- NOTE | 2018-08-17 07:51 | NUR ---
RN OPENING NOTES PT RESTING IN BED. NO COMPLAINTS OF PAIN, SOB OR DISTRESS AT THIS TIME. PT HAS RIGHT UPPER ARM MIDLINE RUNNING ZOSYN. SAFETY PRECAUTIONS IN PLACE, BED IN LOWEST LOCKED POSITION, X2 SIDE RAILS UP AND CALL LIGHT WITHIN REACH. WILL CONTINUE TO MONITOR.
[2018-08-17 08:00] VITALS: BP 124/40
[2018-08-17] MEDS: DULOXETINE HCL 30 MG CAPSULE.DR PO SCH ×2 (08:53→21:49)
[2018-08-17] MEDS: VITAMIN B COMP W-C 1 TAB TABLET PO SCH (08:53)
[2018-08-17] MEDS: GABAPENTIN 100 MG CAPSULE PO SCH ×3 (08:53→16:43)
[2018-08-17] MEDS: LACTOBACILLUS RHAMNOSUS GG 1 EACH CAP.SPRINK PO SCH ×2 (08:53→16:42)
[2018-08-17] MEDS: PANTOPRAZOLE 40 MG TABLET.DR PO SCH ×2 (08:53→16:43)
[2018-08-17] MEDS: FOLIC ACID 1 MG TABLET PO SCH (08:53)
[2018-08-17] MEDS: PREGABALIN 100 MG CAPSULE PO SCH ×2 (08:53→16:42)
[2018-08-17] MEDS: SEVELAMER CARBONATE 800 MG TABLET PO SCH ×3 (08:53→17:35)
[2018-08-17] MEDS: FERROUS SULFATE (325 MG) 325 MG/TAB TABLET PO SCH ×2 (08:53→16:42)
[2018-08-17] MEDS: CLOTRIMAZOLE 1% 15 GM TUBE TP SCH ×2 (08:54→16:43)
[2018-08-17] MEDS: NEOMY SULF/BACITRAC ZN/POLY 15 GM TUBE TP SCH ×2 (08:54→16:43)
[2018-08-17] MEDS: NICOTINE PATCH (14MG) 14 MG PATCH.TD24 TD SCH (08:54)
[2018-08-17] MEDS: MUPIROCIN OINT 2% 22 GM TUBE SCH ×2 (08:55→21:51)
[2018-08-17] MEDS: AMLODIPINE BESYLATE 10 MG TABLET PO SCH (09:00)
[2018-08-17] MEDS: CARVEDILOL 12.5 MG TABLET PO SCH ×2 (09:00→16:43)
[2018-08-17 16:00] VITALS: BP 110/71
--- NOTE | 2018-08-17 19:30 | NUR ---
RN PM OPENING NOTES BEDSIDE REPORT RECIEVED FROM NELIDA HERNANDEZ. PT RESTING IN BED. NO COMPLAINTS OF PAIN, SOB OR DISTRESS AT THIS TIME. PT HAS RIGHT UPPER ARM MIDLINE PATENT NO S/S OF COMPLICATIONS . SAFETY PRECAUTIONS IN PLACE, BED IN LOWEST LOCKED POSITION, X2 SIDE RAILS UP AND CALL LIGHT WITHIN REACH. COLOSTOMY BAG LEAKING SITE DRESSING CHANGED REDNESS AROUND STOMA SITE BUT SKIN IS INTACT. WILL CONTINUE TO MONITOR.
[2018-08-17 20:00] VITALS: BP 110/66
--- NOTE | 2018-08-17 21:44 | NUR ---
LANTUS HELD BS 105. PER CHARGE NURSE BENNIE RECOMMENDED TO HOLD INSULIN. IF BS DROPS TOO LOW THERE IS A SHORTAGE OF D50 MEDICATIONS. SO BEST NOT TO GIVE LANTUS FOR LOW BS.
[2018-08-17] MEDS: INSULIN GLARGINE, 100 UNIT/ML CARTRIDGE SQ SCH (21:51)
--- NOTE | 2018-08-18 03:42 | NUR ---
xylocaine missed dose. missed dose for one time order of xylocain ordered for 08/14/18 because it was past due by 4 days.
[2018-08-18] MEDS: MORPHINE SULFATE INJ 2 MG/ML DISP.SYRIN IV PRN ×3 (04:11→22:39)
--- NOTE | 2018-08-18 04:11 | NUR ---
MORPHINE PRN. MORPHINE PRN ADMINISTERED PER MD ORDERS PER PATIENT REQUEST. HAVING THROBBING PAIN TO RIGHT HAND. 10/31
--- NOTE | 2018-08-18 05:21 | NUR ---
NORCO PRN. PATIENT REPORTS PAIN IS BACK UP TO 6/10 TO RIGHT HAND. REQUESTING NORCO PRN ADMINISTERED PER ORDERS.
[2018-08-18] MEDS: HYDROCODONE/APAP 5/325MG 1 EACH TABLET PO PRN ×3 (05:22→19:45)
[2018-08-18] MEDS: PIPERACILLIN /TAZOBACTAM 2.25 G in IV D5W 50 ML IV SCH ×2 (06:12→14:51)
--- NOTE | 2018-08-18 06:50 | NUR ---
RN CLOSING NOTE. PT RESTING IN BED. PT HAS RIGHT UPPER ARM MIDLINE PATENT NO S/S OF COMPLICATIONS . SAFETY PRECAUTIONS IN PLACE, BED IN LOWEST LOCKED POSITION, X2 SIDE RAILS UP AND CALL LIGHT WITHIN REACH. COLOSTOMY BAG INTACT.
[2018-08-18] MEDS: INSULIN REGULAR, HUMAN 100 UNIT/ML 3 ML VIAL SQ PRN ×4 (06:56→21:30)
[2018-08-18] MEDS: BLOOD SUGAR DIAGNOSTIC 1 EACH STRIP VI SCH ×4 (07:01→21:19)
[2018-08-18 08:00] VITALS: BP 142/79
--- NOTE | 2018-08-18 08:10 | NUR ---
MS/RN - Assessment Patient awake, A/O x 4, no complaints overnight, denies pain at this time, no apparent distress noted, afebrile, stable on room air. SIRIA midline is patent, intact, with no signs of infiltration. Will do wound treatment as ordered. Patient scheduled for HD treatment today, will hold BP meds for now. Patient educated on plan of care. Will continue with current medical management.
[2018-08-18] MEDS: AMLODIPINE BESYLATE 10 MG TABLET PO SCH (08:18)
[2018-08-18] MEDS: CARVEDILOL 12.5 MG TABLET PO SCH ×2 (08:18→16:44)
[2018-08-18] MEDS: FERROUS SULFATE (325 MG) 325 MG/TAB TABLET PO SCH ×2 (08:26→16:44)
[2018-08-18] MEDS: PREGABALIN 100 MG CAPSULE PO SCH ×2 (08:26→16:43)
[2018-08-18] MEDS: NICOTINE PATCH (14MG) 14 MG PATCH.TD24 TD SCH (08:26)
[2018-08-18] MEDS: VITAMIN B COMP W-C 1 TAB TABLET PO SCH (08:26)
[2018-08-18] MEDS: PANTOPRAZOLE 40 MG TABLET.DR PO SCH ×2 (08:26→16:43)
[2018-08-18] MEDS: SEVELAMER CARBONATE 800 MG TABLET PO SCH ×3 (08:26→17:26)
[2018-08-18] MEDS: DULOXETINE HCL 30 MG CAPSULE.DR PO SCH ×2 (08:26→21:08)
[2018-08-18] MEDS: LACTOBACILLUS RHAMNOSUS GG 1 EACH CAP.SPRINK PO SCH ×2 (08:26→16:44)
[2018-08-18] MEDS: FOLIC ACID 1 MG TABLET PO SCH (08:26)
[2018-08-18] MEDS: GABAPENTIN 100 MG CAPSULE PO SCH ×3 (08:26→16:43)
[2018-08-18] MEDS: MUPIROCIN OINT 2% 22 GM TUBE SCH ×2 (08:27→21:18)
[2018-08-18] MEDS: CLOTRIMAZOLE 1% 15 GM TUBE TP SCH ×2 (08:27→16:46)
[2018-08-18] MEDS: NEOMY SULF/BACITRAC ZN/POLY 15 GM TUBE TP SCH ×2 (08:28→16:45)
--- NOTE | 2018-08-18 10:00 | NUR ---
MS/RN - HD treatment HD treatment ongoing, plan to remove 1 liter per HD RN.
[2018-08-18 11:09] LABS: CALCIUM, SERUM 8.4 mg/dL (8.5-10.1); CREATININE 6.9 mg/dL (0.6-1.3); MAGNESIUM 1.8 mg/dL (1.8-2.4); PHOSPHORUS 4.1 mg/dL (2.5-4.9); POTASSIUM 4.8 mmol/L (3.5-5.1)
--- NOTE | 2018-08-18 11:10 | NUR ---
MS/RN - I&D/Debridement Dr. Phillips at bedside performing I&D/debridement of right hand, wound culture sent. Procedure consent signed by the patient.
[2018-08-18 13:19] LABS: BASOPHILS # (AUTO) 0.1 /CMM (0.0-0.2); BASOPHILS % (AUTO) 1.7 % (0.0-2.0); EOSINOPHILS % (AUTO) 5.2 % (0.0-6.0); HEMATOCRIT 27 % (39-51); HEMOGLOBIN 8.8 g/dL (13.5-17.5); LYMPHOCYTES # (AUTO) 0.9 /CMM (0.8-4.8); LYMPHOCYTES % (AUTO) 22.3 % (20.0-44.0); MEAN CORPUSCULAR HGB CONC 33 g/dl (31.0-36.0); MEAN CORPUSCULAR VOLUME 87 fL (80-96); MONOCYTES # (AUTO) 0.2 /CMM (0.1-1.30); MONOCYTES % (AUTO) 4.7 % (2.0-12.0); NEUTROPHILS # (AUTO) 2.8 /CMM (1.8-8.9); NEUTROPHILS % (AUTO) 66.1 % (43.0-81.0); PLATELET COUNT (AUTO) 253 /CMM (150-450); RED BLOOD CELL COUNT(AUTO) 3.03 MIL/uL (4.5-6.0); WHITE BLOOD COUNT (AUTO) 4.2 K/uL (4.3-11.0)
[2018-08-18] MEDS: VANCOMYCIN 500 MG in IV D5W 100 ML IV PRN (13:49)
[2018-08-18 16:00] VITALS: BP 109/65
--- NOTE | 2018-08-18 17:56 | NUR ---
MS/RN - End of shift summary notes No significant change in condition seen, dressing on the right hand/forearm is clean, dry and intact, c/o burning/throbbing pain on the right hand relieved with Morphine and [place] PRN, stable on room air, remain afebrile. Contact isolation maintained for MRSA nares. Will continue with current medical management.
--- NOTE | 2018-08-18 19:00 | NUR ---
RN lorie opening notes Received Pt from morning nurse. PT is alert and oriented X4. PT is laying in bed comfortably watching TV. No sign of pain or any discomfort. No nausea or vomiting. Respiration is equal and unlabored. SIRIA midline is patent and intact. PT had HD today. PT has RLQ ileostomy, patent and intact. Contact precaution (MRSA nares) is maintained. will continue to monitor and assist all needs.
--- NOTE | 2018-08-18 19:45 | NUR ---
RN medsurkristen notes Pt is complaining of pain on right hand 7/10 on numeric pain scale. Administered [place] 5-325 Tab PO. Will continue to monitor.
[2018-08-18 20:00] VITALS: BP 112/38
[2018-08-18] MEDS: INSULIN GLARGINE, 100 UNIT/ML CARTRIDGE SQ SCH (21:33)
--- NOTE | 2018-08-18 21:40 | NUR ---
RN medsurkristen notes When scanned regular insulin barcode it was the AC sliding scale and accidentally saved. After I saved the emar, Noticed that it was the AC sliding scale and not the HS sliding scale. Administered and documented the correct regular insulin per HS sliding scale to the Pt for HS. Pt blood glucose was 213 and administered 4 Units regular insulin (HS) based on sliding scale.
[2018-08-18] MEDS: *INSULIN REGULAR(HUMULIN R)HUM 100 UNIT/ML VIAL SQ PRN (21:44)
[2018-08-19] MEDS: HYDROCODONE/APAP 5/325MG 1 EACH TABLET PO PRN (03:26)
[2018-08-19] MEDS: MORPHINE SULFATE INJ 2 MG/ML DISP.SYRIN IV PRN (04:58)
--- NOTE | 2018-08-19 04:58 | NUR ---
RN lorie notes PT is complaining of pain on right hand 8/10 on pain scale. Administered Morphine sulfate 1mg/0.5ml IV push. BP 118/49, P 73, Temp 98.8, Respiration 18. Will continue to monitor.
--- NOTE | 2018-08-19 06:40 | NUR ---
RN medsurg closing notes Pt is alert and oriented X4. Pt is sitting in bed comfortably. No signs of acute distress. Respiration is equal and unlabored. NO SOB. No nausea or vomiting. Pt recent blood glucose was 150. L upper arm fistula thrill and bruit. Midline SIRIA is intact, patent and flush easily. Routine meds have been given including PRN meds and assisted all needs. Safety precautions is maintained. Bed at low position and call light is within reach. Will endorse to morning nurse for SADIA.
[2018-08-19] MEDS: BLOOD SUGAR DIAGNOSTIC 1 EACH STRIP VI SCH ×4 (06:41→21:16)
[2018-08-19] MEDS: INSULIN REGULAR, HUMAN 100 UNIT/ML 3 ML VIAL SQ PRN ×4 (06:42→22:21)
--- NOTE | 2018-08-19 06:45 | NUR ---
RN medsurg closing notes continue Contact precautions for MRSA is maintained.
[2018-08-19 07:08] LABS: CALCIUM, SERUM 8.2 mg/dL (8.5-10.1); CREATININE 6.9 mg/dL (0.6-1.3); POTASSIUM 5.5 mmol/L (3.5-5.1)
[2018-08-19 07:29] LABS: RED BLOOD CELL COUNT(AUTO) 3.43 MIL/uL (4.5-6.0); WHITE BLOOD COUNT (AUTO) 6.3 K/uL (4.3-11.0)
[2018-08-19 07:30] LABS: BASOPHILS # (AUTO) 0.1 /CMM (0.0-0.2); BASOPHILS % (AUTO) 0.8 % (0.0-2.0); EOSINOPHILS % (AUTO) 2.6 % (0.0-6.0); HEMATOCRIT 30 % (39-51); HEMOGLOBIN 9.7 g/dL (13.5-17.5); LYMPHOCYTES # (AUTO) 1.3 /CMM (0.8-4.8); LYMPHOCYTES % (AUTO) 21.3 % (20.0-44.0); MEAN CORPUSCULAR HGB CONC 33 g/dl (31.0-36.0); MEAN CORPUSCULAR VOLUME 87 fL (80-96); MONOCYTES # (AUTO) 0.4 /CMM (0.1-1.30); MONOCYTES % (AUTO) 7.1 % (2.0-12.0); NEUTROPHILS # (AUTO) 4.3 /CMM (1.8-8.9); NEUTROPHILS % (AUTO) 68.2 % (43.0-81.0); PLATELET COUNT (AUTO) 252 /CMM (150-450)
--- NOTE | 2018-08-19 07:42 | NUR ---
MS/RN - Assessment Patient is awake, A/O x 4, had a rough night due to right hand pain, will notify Md to re-evaluate pain medication, no apparent distress noted, afebrile, stable on room air. RUE dressing is clean, dry, intact, continue to elevated RUE above the level of the heart. SIRIA midline is patent, intact, with no signs of infiltration. Will do wound treatment as ordered, RLQ ileostomy intact. Continue contact precautions for MRSA nares. Patient educated on plan of care. Will continue with current medical management.
[2018-08-19] MEDS: LACTOBACILLUS RHAMNOSUS GG 1 EACH CAP.SPRINK PO SCH ×2 (08:15→18:19)
[2018-08-19] MEDS: FERROUS SULFATE (325 MG) 325 MG/TAB TABLET PO SCH ×2 (08:15→18:19)
[2018-08-19] MEDS: NICOTINE PATCH (14MG) 14 MG PATCH.TD24 TD SCH (08:15)
[2018-08-19] MEDS: PREGABALIN 100 MG CAPSULE PO SCH ×2 (08:15→18:18)
[2018-08-19] MEDS: SEVELAMER CARBONATE 800 MG TABLET PO SCH ×3 (08:15→18:19)
[2018-08-19] MEDS: PANTOPRAZOLE 40 MG TABLET.DR PO SCH ×2 (08:15→18:19)
[2018-08-19] MEDS: GABAPENTIN 100 MG CAPSULE PO SCH ×3 (08:15→18:19)
[2018-08-19] MEDS: DULOXETINE HCL 30 MG CAPSULE.DR PO SCH ×2 (08:15→20:51)
[2018-08-19] MEDS: VITAMIN B COMP W-C 1 TAB TABLET PO SCH (08:15)
[2018-08-19] MEDS: CARVEDILOL 12.5 MG TABLET PO SCH ×3 (08:16→18:19)
[2018-08-19] MEDS: FOLIC ACID 1 MG TABLET PO SCH (08:16)
[2018-08-19] MEDS: AMLODIPINE BESYLATE 10 MG TABLET PO SCH (08:16)
[2018-08-19] MEDS: CLOTRIMAZOLE 1% 15 GM TUBE TP SCH ×2 (08:19→18:41)
[2018-08-19] MEDS: MUPIROCIN OINT 2% 22 GM TUBE SCH ×2 (08:19→20:51)
[2018-08-19] MEDS: NEOMY SULF/BACITRAC ZN/POLY 15 GM TUBE TP SCH ×2 (08:20→19:58)
[2018-08-19 08:28] VITALS: BP 119/36
[2018-08-19] MEDS ORDERED: HYDROMORPHONE INJ 0.5 MG/0.5 ML SYRINGE IV PRN (08:30)
[2018-08-19] MEDS: HYDROMORPHONE 1 MG/1 ML DISP.SYRIN IV PRN ×3 (09:10→20:54)
--- NOTE | 2018-08-19 12:00 | NUR ---
RECEIVED REPORT FROM TRENTONRN -PT ALERT AND ORIENTED X4.VERBALLY RESPONSIVE .SITTING IN THE EDGE OF THE BED. C/O RT HAND CELLULITIS.WILL ADMINISTER DILAUDID PRN WHEN ITS DUE-PT UNDERSTANDS.CALL LIGHT PLACED WITHIN REACH.
--- NOTE | 2018-08-19 14:08 | NUR ---
CALLED [facility] AND SPOKE TO [place] AND OBTAINED OUTPT SCHEDULED APPT WITH YUMIKO HIGGINS ON 08/25/18 AT 1:30 PM.
[2018-08-19] MEDS ORDERED: LACTOBACILLUS RHAMNOSUS GG 1 EACH CAP.SPRINK PO SCH (17:00)
[2018-08-19] MEDS ORDERED: LIDOCAINE 1%-EPI 1:100,000 20 ML VIAL TP ONE (17:30)
--- NOTE | 2018-08-19 18:44 | NUR ---
PT HAS LOW BP 106/45 HR 71-HELD COREG AND DISCARDED IN THE MED DISPENSER. PT KEEPS ASKING FOR DILAUDID ATC AND EXPLAINED THE RISKS OF STRONG PAIN MEDS TO BP AND OTHER SIDE EFFECTS.
--- NOTE | 2018-08-19 19:30 | NUR ---
MS/RN OPENING NOTES RECEIVED PATIENT IN BED, AWAKE, ALERT X4 ABLE TO VERBALIZE NEEDS, PAIN REPORTED 10/31, TO MONITOR AND PROVIDE CARE, KEPT COMFORTABLE, OFFERED FLUIDS, INSTRUCT TO KEEP RIGHT HAND ELEVATE ABOVE HEART, RESPIRATIONS EVEN AND UNLABORED, SKIN WARM TO TOUCH, WILL MONITOR, BED LOCKED, CALL LIGHTS WITHIN REACH.RECEIVED ENDORSEMENT FROM AM RN FOR SADIA.
[2018-08-19 20:00] VITALS: BP_SYST 100; BP_SYST 103; BP_DIAS 34; BP_DIAS 40
--- NOTE | 2018-08-19 20:43 | NUR ---
MS/RN NOTES RE CHECK SBP AT 114/34. PULSE RATE 67, PAIN 8/10 FLUIDS PROVIDED, PATIENT REQUESTED PAIN MEDICATION , KEPT SKIN INTACT AND DRY, COLOSTOMY BAG CHANGE, PATIENT TOLERATED WELL, APPLIE SKIN TREATMENT.
--- NOTE | 2018-08-19 21:20 | NUR ---
BS CHECK AT 219
[2018-08-19] MEDS: INSULIN GLARGINE, 100 UNIT/ML CARTRIDGE SQ SCH (22:20)
[2018-08-20] MEDS: BLOOD SUGAR DIAGNOSTIC 1 EACH STRIP VI SCH ×4 (05:56→21:46)
[2018-08-20 06:41] LABS: BASOPHILS # (AUTO) 0.1 /CMM (0.0-0.2); BASOPHILS % (AUTO) 1.4 % (0.0-2.0); EOSINOPHILS % (AUTO) 3.1 % (0.0-6.0); HEMATOCRIT 28 % (39-51); HEMOGLOBIN 9.3 g/dL (13.5-17.5); LYMPHOCYTES # (AUTO) 1.6 /CMM (0.8-4.8); LYMPHOCYTES % (AUTO) 20.6 % (20.0-44.0); MEAN CORPUSCULAR HGB CONC 33 g/dl (31.0-36.0); MEAN CORPUSCULAR VOLUME 87 fL (80-96); MONOCYTES # (AUTO) 0.5 /CMM (0.1-1.30); MONOCYTES % (AUTO) 6.6 % (2.0-12.0); NEUTROPHILS # (AUTO) 5.4 /CMM (1.8-8.9); NEUTROPHILS % (AUTO) 68.3 % (43.0-81.0); PLATELET COUNT (AUTO) 291 /CMM (150-450); RED BLOOD CELL COUNT(AUTO) 3.22 MIL/uL (4.5-6.0); WHITE BLOOD COUNT (AUTO) 7.9 K/uL (4.3-11.0)
[2018-08-20 06:42] LABS: CALCIUM, SERUM 8.3 mg/dL (8.5-10.1)
[2018-08-20] MEDS: HYDROMORPHONE 1 MG/1 ML DISP.SYRIN IV PRN ×3 (06:43→22:44)
--- NOTE | 2018-08-20 06:45 | NUR ---
REPORTED PAIN ON RIGHT HAND OF 9/10, PAIN MEDICATION PRESCRIBED DILAUDID GIVEN
[2018-08-20 06:50] LABS: CREATININE 8.1 mg/dL (0.6-1.3); POTASSIUM 6.2 mmol/L (3.5-5.1)
--- NOTE | 2018-08-20 07:00 | NUR ---
AWAITING FOR MD TO CALL BACK REPORTED POTASSIUM LEVEL 6.2 AND CRE 8.1.
--- NOTE | 2018-08-20 07:48 | NUR ---
323-1 MS/RN NOTES PATIENT ALERT, ORIENTED, ABLE TO VERBALIZE NEEDS, ON PAIN MANAGMENT MONITORING, KEPT COMFORTABLE, ABLE TO SLEEP INTERMITENTLY. BED LOCKED, CALL LIGHTS WITHIN REACH, WILL ENDORSE TO AM RN FOR SADIA. RIGHT UPPER ARM IV SITE PATENT WITH NO S/S OF INFILTRATION.
[2018-08-20] MEDS: SEVELAMER CARBONATE 800 MG TABLET PO SCH ×3 (08:00→18:07)
--- NOTE | 2018-08-20 08:55 | NUR ---
patient recieved with hd in and hemodialysis started. informed about the high potasium level, npo for the scheduled hemodialysis todaty.
[2018-08-20 09:00] VITALS: BP 92/35
[2018-08-20] MEDS: AMLODIPINE BESYLATE 10 MG TABLET PO SCH (09:00)
[2018-08-20] MEDS: GABAPENTIN 100 MG CAPSULE PO SCH ×3 (09:00→17:25)
[2018-08-20] MEDS: CARVEDILOL 12.5 MG TABLET PO SCH ×2 (09:00→17:25)
[2018-08-20] MEDS: LACTOBACILLUS RHAMNOSUS GG 1 EACH CAP.SPRINK PO SCH ×2 (09:59→17:25)
[2018-08-20] MEDS: PANTOPRAZOLE 40 MG TABLET.DR PO SCH ×2 (09:59→17:25)
[2018-08-20] MEDS: FOLIC ACID 1 MG TABLET PO SCH (09:59)
[2018-08-20] MEDS: FERROUS SULFATE (325 MG) 325 MG/TAB TABLET PO SCH ×2 (09:59→17:25)
[2018-08-20] MEDS: DULOXETINE HCL 30 MG CAPSULE.DR PO SCH ×2 (09:59→21:26)
[2018-08-20] MEDS: PREGABALIN 100 MG CAPSULE PO SCH ×2 (09:59→17:25)
[2018-08-20] MEDS: VITAMIN B COMP W-C 1 TAB TABLET PO SCH (10:00)
[2018-08-20] MEDS: NICOTINE PATCH (14MG) 14 MG PATCH.TD24 TD SCH (10:01)
[2018-08-20] MEDS: CLOTRIMAZOLE 1% 15 GM TUBE TP SCH ×2 (10:06→17:29)
[2018-08-20] MEDS: NEOMY SULF/BACITRAC ZN/POLY 15 GM TUBE TP SCH ×2 (10:06→17:29)
[2018-08-20] MEDS: MUPIROCIN OINT 2% 22 GM TUBE SCH (10:08)
[2018-08-20 10:30] VITALS: BP 95/28
--- NOTE | 2018-08-20 10:51 | NUR ---
BLOOD PRESSURE MEDICATION HELD THE PATIENT BLOOD PRESSURE ON HEMODIALYSIS WERE LOW RANGE. WILL RECHECK THE BLOOD PRESSURE AGAIN
[2018-08-20] MEDS: INSULIN REGULAR, HUMAN 100 UNIT/ML 3 ML VIAL SQ PRN ×2 (12:51→18:03)
[2018-08-20 14:30] VITALS: BP 102/46
--- NOTE | 2018-08-20 15:15 | NUR ---
SURGEON IS IN AND WILL DO THE SECOND DEBRIDEMENT OF THE RIGHT HAND WOUND. CONSENT IS SIGNED,
[2018-08-20 16:00] VITALS: BP_SYST 106; BP_SYST 160; BP_DIAS 39; BP_DIAS 56
--- NOTE | 2018-08-20 16:12 | NUR ---
VANCOMYCIN DOSE NOT GIVEN WITH HEMODIALYSIS, PHARMACY ORDERED A VANCO TROUGH AND STAT, WILL GIVE THE VANCOMYCIN ACCORDING TO THE VANCOMYCIN TRAOUGH RESULT.
--- NOTE | 2018-08-20 16:29 | NUR ---
VANCOMYCIN TROUGH 19/PHARMACY INFORMED AND WILL GIVEN A DOSE OF VANCOMYCIN NOW.
--- NOTE | 2018-08-20 16:52 | NUR ---
VANCOMYCIN DOSE REQUESTED FROM THE PHARMACY
--- NOTE | 2018-08-20 17:57 | NUR ---
I AND D COMPLETED BY THE SURGEON AND DRESSING APPLIED. PATIENT TOLERATED THE PROCEDURE. RIGHT ARM ELEVATED WITH 2 PILLOWS, NO COMPLAINTS OF PAIN CLAIMED
[2018-08-20] MEDS: VANCOMYCIN 500 MG in IV D5W 100 ML IV PRN (18:09)
--- NOTE | 2018-08-20 18:11 | NUR ---
VANCOMYCIN DOSE TO BE INFUSED ORDERED,
--- NOTE | 2018-08-20 18:28 | NUR ---
VANCOMYCIN DOSE INFUSED. ORDERED.COLOSTOMY CARE DONE. NOTED REDNESS TO THE SORROUNDING AREA
--- NOTE | 2018-08-20 19:20 | NUR ---
RECEIVE PT IN BED A/OX3 RESPIRATIONS EVEN AND UNLABORED, STABLE, SAFETY MEASURES IN PLACE WILL CONT TO MTR.
[2018-08-20 20:00] VITALS: BP 124/51
[2018-08-20] MEDS: HYDROCODONE/APAP 5/325MG 1 EACH TABLET PO PRN (21:27)
[2018-08-20] MEDS: INSULIN GLARGINE, 100 UNIT/ML CARTRIDGE SQ SCH (21:47)
[2018-08-20] MEDS: *INSULIN REGULAR(HUMULIN R)HUM 100 UNIT/ML VIAL SQ PRN (21:48)
[2018-08-21] MEDS: HYDROMORPHONE 1 MG/1 ML DISP.SYRIN IV PRN ×5 (02:56→22:31)
[2018-08-21] MEDS: BLOOD SUGAR DIAGNOSTIC 1 EACH STRIP VI SCH ×4 (06:04→21:09)
[2018-08-21] MEDS: INSULIN REGULAR, HUMAN 100 UNIT/ML 3 ML VIAL SQ PRN ×4 (06:05→21:10)
--- NOTE | 2018-08-21 06:47 | NUR ---
MS RN ASLEEP AND EASILY AWAKEN, RESPIRATION EVEN AND UNLABORED, KEPT CLEAN AND DRY AND COMFORTABLE. NEEDS ATTENDED AND ANTICIPATED, NURSING CARE RENDERED, OFFLOAD HEELS AND ELBOWS. SAFETY MEASURES AT ALL TIMES. ENDORSE TO THE NEXT SHIFT.
[2018-08-21 06:56] LABS: BASOPHILS # (AUTO) 0.1 /CMM (0.0-0.2); EOSINOPHILS % (AUTO) 1.9 % (0.0-6.0); HEMATOCRIT 26 % (39-51); HEMOGLOBIN 8.6 g/dL (13.5-17.5); LYMPHOCYTES # (AUTO) 1.2 /CMM (0.8-4.8); LYMPHOCYTES % (AUTO) 16.3 % (20.0-44.0); MEAN CORPUSCULAR HGB CONC 33 g/dl (31.0-36.0); MEAN CORPUSCULAR VOLUME 88 fL (80-96); MONOCYTES # (AUTO) 0.4 /CMM (0.1-1.30); MONOCYTES % (AUTO) 5.9 % (2.0-12.0); NEUTROPHILS # (AUTO) 5.6 /CMM (1.8-8.9); NEUTROPHILS % (AUTO) 74.9 % (43.0-81.0); PLATELET COUNT (AUTO) 275 /CMM (150-450); RED BLOOD CELL COUNT(AUTO) 2.96 MIL/uL (4.5-6.0); WHITE BLOOD COUNT (AUTO) 7.5 K/uL (4.3-11.0)
[2018-08-21 07:00] LABS: CALCIUM, SERUM 8.2 mg/dL (8.5-10.1); CREATININE 6.6 mg/dL (0.6-1.3); POTASSIUM 5.3 mmol/L (3.5-5.1)
--- NOTE | 2018-08-21 07:19 | NUR ---
MS RN OPENING NOTES RECEIVED PT AWAKE IN BED IN NO ACUTE SIGNS OF DISTRESS. A/O X4 AND ABLE TO MAKE NEEDS KNOWN, DENIES PAIN OR ANY DISCOMFORTS AT THIS TIME. ON ROOM AIR, RESPIRATIONS EVEN AND UNLABORED. DRESSING ON RIGHT HAND WITH RANDY WRAP C/D/I AND ELEVATED WITH PILLOW. SIRIA MIDLINE PATENT AND INTACT. JESÚS AF IN PLACE WITH + THRILL AND BRUIT NOTED. BED IN LOW LOCKED POSITION WITH SIDE RAILS UP X2 AND CALL LIGHT WITHIN REACH. WILL CONTINUE TO MONITOR ACCORDINGLY.
[2018-08-21 08:00] VITALS: BP 97/31
[2018-08-21] MEDS: NICOTINE PATCH (14MG) 14 MG PATCH.TD24 TD SCH (08:40)
[2018-08-21] MEDS: VITAMIN B COMP W-C 1 TAB TABLET PO SCH (08:40)
[2018-08-21] MEDS: SEVELAMER CARBONATE 800 MG TABLET PO SCH ×3 (08:40→17:22)
[2018-08-21] MEDS: FERROUS SULFATE (325 MG) 325 MG/TAB TABLET PO SCH ×2 (08:41→17:22)
[2018-08-21] MEDS: GABAPENTIN 100 MG CAPSULE PO SCH ×3 (08:41→17:22)
[2018-08-21] MEDS: DULOXETINE HCL 30 MG CAPSULE.DR PO SCH ×2 (08:41→20:57)
[2018-08-21] MEDS: LACTOBACILLUS RHAMNOSUS GG 1 EACH CAP.SPRINK PO SCH ×2 (08:41→17:22)
[2018-08-21] MEDS: PANTOPRAZOLE 40 MG TABLET.DR PO SCH ×2 (08:41→17:22)
[2018-08-21] MEDS: PREGABALIN 100 MG CAPSULE PO SCH ×2 (08:41→17:22)
[2018-08-21] MEDS: FOLIC ACID 1 MG TABLET PO SCH (08:42)
[2018-08-21] MEDS: AMLODIPINE BESYLATE 10 MG TABLET PO SCH (08:42)
[2018-08-21] MEDS: CARVEDILOL 12.5 MG TABLET PO SCH ×2 (08:42→16:13)
[2018-08-21] MEDS: NEOMY SULF/BACITRAC ZN/POLY 15 GM TUBE TP SCH ×2 (08:44→17:22)
[2018-08-21] MEDS: CLOTRIMAZOLE 1% 15 GM TUBE TP SCH ×2 (08:44→17:23)
--- NOTE | 2018-08-21 09:08 | NUR ---
RN NOTES/PAIN MANAGEMENT PATIENT IN BED WITH ILEOSTOMY IN PLACE AND FUNCTIONING WITH GREENISH BLACK SOFT AND WATERY STOOLS NOTED. PT C/O PAIN ON HIS RIGHT HAND WITH SCALE OF 8/10. PRN DILAUDID 1MG/1ML ADMINISTERED AT 0854. WILL CONTINUE TO MONITOR AND REASSESS PT.
--- NOTE | 2018-08-21 13:10 | NUR ---
RN NOTES/PAIN MANAGEMENT PT C/O ACHING AND THROBBING PAIN ON HIS RIGHT HAND WITH SCALE OF 8/10. PRN DILAUDID 1MG/1ML ADMINISTERED AT 1307. WILL CONTINUE TO MONITOR AND REASSESS PT.
[2018-08-21 16:00] VITALS: BP 103/49
--- NOTE | 2018-08-21 18:07 | NUR ---
RN NOTES/PAIN MANAGEMENT PT IN BED AND COMPLAINED OF ACHING AND THROBBING PAIN ON HIS RIGHT HAND WITH SCALE OF 8/10. PRN DILAUDID 1MG/1ML ADMINISTERED AT 1803. WILL CONTINUE TO MONITOR AND REASSESS PT.
--- NOTE | 2018-08-21 18:36 | NUR ---
MS RN CLOSING NOTES PT IN BED AWAKE AND RESTING AT MODERATE HIGH BACKREST POSITION. A/O X4 AND ABLE TO MAKE NEEDS KNOWN. ON ROOM AIR, TOLERATING WELL WITH NO SOB NOTED. NO ACUTE EVENTS NOTED THROUGHOUT THE DAY. DRESSING ON RIGHT HAND WITH RANDY WRAP C/D/I AND ELEVATED WITH PILLOW. SIRIA MIDLINE PATENT AND INTACT. JESÚS AV FISTULA IN PLACE WITH + THRILL AND BRUIT SOUNDS NOTED. ILEOSTOMY IN PLACE AND ACTIVE, ILEOSTOMY CARE DONE. SAFETY MEASURES IN PLACE. BED IN LOW LOCKED POSITION WITH SR UP X2. CALL LIGHT WITHIN REACH. WILL ENDORSE TO SADDLE STITCH OPERATOR NURSE FOR SADIA.
--- NOTE | 2018-08-21 19:20 | NUR ---
MS RN RECEIVE PT IN BED A/O X 3 [address] TV RESPIRATIONS EVEN AND UNLABORED,STABLE, NO S/S OF DISTRESS, SAFETY MEASURES IN PLACE. WILL CONTINUE TO MONITOR
[2018-08-21 20:00] VITALS: BP 114/44
[2018-08-21] MEDS: INSULIN GLARGINE, 100 UNIT/ML CARTRIDGE SQ SCH (21:10)
[2018-08-22] MEDS: HYDROMORPHONE 1 MG/1 ML DISP.SYRIN IV PRN ×4 (03:23→21:09)
[2018-08-22] MEDS: BLOOD SUGAR DIAGNOSTIC 1 EACH STRIP VI SCH ×4 (06:02→21:32)
[2018-08-22] MEDS: INSULIN REGULAR, HUMAN 100 UNIT/ML 3 ML VIAL SQ PRN ×3 (06:02→17:54)
--- NOTE | 2018-08-22 06:23 | NUR ---
MS RN AM CARE RENDERED, SLEPT WELL THROUGHOUT THE NIGHT, RESPIRATION EVEN AND UNLABORED, KEPT CLEAN AND DRY AND COMFORTABLE. NEEDS ATTENDED AND ANTICIPATED, NO C/O PAIN AT THIS TIME. OFFLOAD HEELS AND ELBOWS AT ALL TIMES. ILEOSTOMY IN PLACE CLEANED. SAFETY MEASURES AT ALL TIMES. ENDORSE TO THE NEXT SHIFT.
--- NOTE | 2018-08-22 07:05 | NUR ---
MS RN NOTES PATIENT IN BED ALERT ORIENTED X 3. NO ACUTE DISTRESS NOTED. BREATHING UNLABORED. NO SOB NOTED. HD ACCESS INTACT WITH DRESSING CLEAN DRY AND INTACT. IV ACCESS PATENT AND INTACT, NO REDNESS OR SWELLING NOTED. SAFETY MEASURES IN PLACE. WILL CONTINUE TO MONITOR ACCORDINGLY.
[2018-08-22 07:16] LABS: BASOPHILS # (AUTO) 0.1 /CMM (0.0-0.2); BASOPHILS % (AUTO) 1.2 % (0.0-2.0); EOSINOPHILS % (AUTO) 3.9 % (0.0-6.0); HEMATOCRIT 28 % (39-51); HEMOGLOBIN 8.9 g/dL (13.5-17.5); LYMPHOCYTES # (AUTO) 1.6 /CMM (0.8-4.8); LYMPHOCYTES % (AUTO) 21.6 % (20.0-44.0); MEAN CORPUSCULAR HGB CONC 32 g/dl (31.0-36.0); MEAN CORPUSCULAR VOLUME 88 fL (80-96); MONOCYTES # (AUTO) 0.4 /CMM (0.1-1.30); MONOCYTES % (AUTO) 5.2 % (2.0-12.0); NEUTROPHILS # (AUTO) 5.2 /CMM (1.8-8.9); NEUTROPHILS % (AUTO) 68.1 % (43.0-81.0); PLATELET COUNT (AUTO) 302 /CMM (150-450); RED BLOOD CELL COUNT(AUTO) 3.12 MIL/uL (4.5-6.0); WHITE BLOOD COUNT (AUTO) 7.6 K/uL (4.3-11.0)
[2018-08-22 07:29] LABS: CALCIUM, SERUM 8.5 mg/dL (8.5-10.1)
[2018-08-22 07:30] LABS: CREATININE 7.9 mg/dL (0.6-1.3)
[2018-08-22 07:58] LABS: POTASSIUM 6.2 mmol/L (3.5-5.1)
[2018-08-22 08:00] VITALS: BP_SYST 109; BP_SYST 120; BP_DIAS 46; BP_DIAS 48
--- NOTE | 2018-08-22 08:00 | NUR ---
MS RN NOTES SEEN BY AMAURI AREVALO AWARE OF POTASSIUM LEVEL 6.2 AND OTHER LABORATORY TEST RESULTS FROM TODAY.
[2018-08-22] MEDS: SEVELAMER CARBONATE 800 MG TABLET PO SCH ×3 (08:55→18:01)
[2018-08-22] MEDS: LACTOBACILLUS RHAMNOSUS GG 1 EACH CAP.SPRINK PO SCH ×2 (08:55→17:49)
[2018-08-22] MEDS: PREGABALIN 100 MG CAPSULE PO SCH ×2 (08:56→17:49)
[2018-08-22] MEDS: NICOTINE PATCH (14MG) 14 MG PATCH.TD24 TD SCH (08:56)
[2018-08-22] MEDS: DULOXETINE HCL 30 MG CAPSULE.DR PO SCH ×2 (08:56→21:04)
[2018-08-22] MEDS: GABAPENTIN 100 MG CAPSULE PO SCH ×3 (08:56→17:49)
[2018-08-22] MEDS: VITAMIN B COMP W-C 1 TAB TABLET PO SCH (08:56)
[2018-08-22] MEDS: FERROUS SULFATE (325 MG) 325 MG/TAB TABLET PO SCH ×2 (08:56→17:49)
[2018-08-22] MEDS: PANTOPRAZOLE 40 MG TABLET.DR PO SCH ×2 (08:56→17:49)
[2018-08-22] MEDS: FOLIC ACID 1 MG TABLET PO SCH (08:56)
[2018-08-22] MEDS: NEOMY SULF/BACITRAC ZN/POLY 15 GM TUBE TP SCH ×2 (08:57→17:56)
[2018-08-22] MEDS: CLOTRIMAZOLE 1% 15 GM TUBE TP SCH ×2 (08:57→17:55)
[2018-08-22] MEDS: AMLODIPINE BESYLATE 10 MG TABLET PO SCH (09:00)
[2018-08-22] MEDS: CARVEDILOL 12.5 MG TABLET PO SCH ×2 (09:00→17:00)
[2018-08-22] MEDS ORDERED: NICO-676 TD (10:22)
[2018-08-22] MEDS ORDERED: VANC1PLA10 IV (10:22)
[2018-08-22] MEDS ORDERED: INSU100I30 SQ (10:22)
[2018-08-22] MEDS ORDERED: HYDR1DIS2 IV (10:22)
--- NOTE | 2018-08-22 13:00 | NUR ---
HELD MEDIATIONS PATIENT WITH ON GOING DIALYSIS
--- NOTE | 2018-08-22 15:45 | NUR ---
MS RN NOTES DIALYSIS DONE, 1500CC OUT. PATIENTS WITH STABLE VITAL SIGNS.
[2018-08-22 16:00] VITALS: BP 120/46
[2018-08-22] MEDS: VANCOMYCIN 500 MG in IV D5W 100 ML IV PRN (16:03)
--- NOTE | 2018-08-22 19:00 | NUR ---
MS RN NOTES PATIENT IN BED ALERT ORIENTED X 3. NO ACUTE DISTRESS NOTED. BREATHING UNLABORED. NO SOB NOTED. HD ACCESS INTACT WITH DRESSING CLEAN DRY AND INTACT. IV ACCESS PATENT AND INTACT, NO REDNESS OR SWELLING NOTED. DUE MEDICATIONS GIVEN, NO ASE NOTED. NEEDS ATTENDED AND ANTICIPATED. SAFETY MEASURES IN PLACE. ENDORSED TO NIGHT NURSE FOR CONTINUITY OF CARE.
--- NOTE | 2018-08-22 19:30 | NUR ---
RECEIVED PATIENT IN BED AWAKE. AO X 3, ABLE TO MAKE NEED KNOWN. NO ACUTE DISTRESS NOTED. MONITORED FOR PAIN. IV SITE PATENT, INTACT; FLUSHED. JESÚS AV FISTULA INTACT; POS BRUIT/THRILL. RIGHT HAND DRESSING INTACT. SAFETY REMINDERS GIVEN. ON LOW BED WITH BILATERAL UPPER SIDE RAILS UP. CALL RUCKER WITHIN EASY REACH. WILL CONTINUE TO MONITOR.
[2018-08-22 20:00] VITALS: BP 120/44
[2018-08-22] MEDS: INSULIN GLARGINE, 100 UNIT/ML CARTRIDGE SQ SCH (21:34)
[2018-08-22] MEDS: *INSULIN REGULAR(HUMULIN R)HUM 100 UNIT/ML VIAL SQ PRN (21:40)
[2018-08-23] MEDS: HYDROMORPHONE 1 MG/1 ML DISP.SYRIN IV PRN ×4 (02:08→21:02)
--- NOTE | 2018-08-23 06:30 | NUR ---
PATIENT ASLEEP, EASILY AROUSABLE. RESPIRATIONS EVEN. NO SIGNS OF PAIN NOTED. NO SYMPTOMS OF HYPER/HYPOGLYCEMIA. DUE MEDS GIVEN WITH NO ASE NOTED. RIGHT HAND DRESSING CHANGED. NEEDS ATTENDED. CONTACT ISOLATION MAINTAINED. SAFETY PRECAUTIONS AND COMFORT MEASURES IN PLACE. WILL GIVE REPORT TO DAY SHIFT FOR CONTINUITY OF CARE.
[2018-08-23] MEDS: BLOOD SUGAR DIAGNOSTIC 1 EACH STRIP VI SCH ×4 (06:38→21:21)
[2018-08-23] MEDS: INSULIN REGULAR, HUMAN 100 UNIT/ML 3 ML VIAL SQ PRN ×2 (06:40→12:36)
[2018-08-23 08:00] VITALS: BP 89/37
[2018-08-23] MEDS: SEVELAMER CARBONATE 800 MG TABLET PO SCH ×3 (08:30→17:15)
[2018-08-23] MEDS: FERROUS SULFATE (325 MG) 325 MG/TAB TABLET PO SCH ×2 (08:31→17:15)
[2018-08-23] MEDS: DULOXETINE HCL 30 MG CAPSULE.DR PO SCH ×2 (08:31→21:02)
[2018-08-23] MEDS: FOLIC ACID 1 MG TABLET PO SCH (08:31)
[2018-08-23] MEDS: PANTOPRAZOLE 40 MG TABLET.DR PO SCH ×2 (08:31→17:16)
[2018-08-23] MEDS: VITAMIN B COMP W-C 1 TAB TABLET PO SCH (08:31)
[2018-08-23] MEDS: NICOTINE PATCH (14MG) 14 MG PATCH.TD24 TD SCH (08:31)
[2018-08-23] MEDS: LACTOBACILLUS RHAMNOSUS GG 1 EACH CAP.SPRINK PO SCH ×2 (08:31→17:15)
[2018-08-23] MEDS: PREGABALIN 100 MG CAPSULE PO SCH ×2 (08:31→17:16)
[2018-08-23] MEDS: AMLODIPINE BESYLATE 10 MG TABLET PO SCH (08:33)
[2018-08-23] MEDS: CARVEDILOL 12.5 MG TABLET PO SCH ×2 (08:33→17:00)
[2018-08-23] MEDS: GABAPENTIN 100 MG CAPSULE PO SCH ×3 (08:34→17:16)
[2018-08-23] MEDS: NEOMY SULF/BACITRAC ZN/POLY 15 GM TUBE TP SCH ×2 (08:36→17:17)
[2018-08-23] MEDS: CLOTRIMAZOLE 1% 15 GM TUBE TP SCH ×2 (08:36→17:17)
[2018-08-23] MEDS: PROSOURCE / PROSTAT (PYXIS) 30 ML UDC GT SCH ×3 (11:18→17:15)
[2018-08-23 11:39] LABS: BASOPHILS # (AUTO) 0.1 /CMM (0.0-0.2); BASOPHILS % (AUTO) 1.5 % (0.0-2.0); EOSINOPHILS % (AUTO) 2.8 % (0.0-6.0); HEMATOCRIT 30 % (39-51); HEMOGLOBIN 9.9 g/dL (13.5-17.5); LYMPHOCYTES # (AUTO) 1.6 /CMM (0.8-4.8); LYMPHOCYTES % (AUTO) 18.2 % (20.0-44.0); MEAN CORPUSCULAR HGB CONC 33 g/dl (31.0-36.0); MEAN CORPUSCULAR VOLUME 87 fL (80-96); MONOCYTES # (AUTO) 0.5 /CMM (0.1-1.30); MONOCYTES % (AUTO) 5.2 % (2.0-12.0); NEUTROPHILS # (AUTO) 6.4 /CMM (1.8-8.9); NEUTROPHILS % (AUTO) 72.3 % (43.0-81.0); PLATELET COUNT (AUTO) 348 /CMM (150-450); RED BLOOD CELL COUNT(AUTO) 3.48 MIL/uL (4.5-6.0); WHITE BLOOD COUNT (AUTO) 8.9 K/uL (4.3-11.0)
[2018-08-23 11:49] LABS: CALCIUM, SERUM 8.8 mg/dL (8.5-10.1); CREATININE 7.2 mg/dL (0.6-1.3); POTASSIUM 5.5 mmol/L (3.5-5.1)
[2018-08-23 16:00] VITALS: BP 115/75
--- NOTE | 2018-08-23 16:20 | NUR ---
MS RN NOTES PATIENT COMFORTABLY SLEEPING IN BED, NO FACIAL GRIMACING NOTED. NO ACUTE DISTRESS NOTED.
--- NOTE | 2018-08-23 19:00 | NUR ---
MS RN NOTES PATIENT IN BED ALERT ORIENTED X 3. NO ACUTE DISTRESS NOTED. BREATHING UNLABORED. NO SOB NOTED. HD ACCESS INTACT WITH DRESSING CLEAN DRY AND INTACT. IV ACCESS PATENT AND INTACT, NO REDNESS OR SWELLING NOTED. DUE MEDICATIONS GIVEN, NO ASE NOTED. NEEDS ATTENDED AND ANTICIPATED. KEPT CLEAN DRY AND COMFORTABLE. SAFETY MEASURES IN PLACE. ENDORSE TO NIGHT NURSE FOR CONTINUITY OF CARE.
--- NOTE | 2018-08-23 19:20 | NUR ---
MS RN PM NOTE OPENING. BEDSIDE REPORT RECIEVED. POC REVIEWED WITH PATIENT QUESTIONS CONCERNS ADDRESSED. PATIENT IN BED ALERT ORIENTED X 3. NO ACUTE DISTRESS NOTED. BREATHING UNLABORED. NO SOB NOTED. HD ACCESS AV FISTULA INTACT OPEN TO AIR. IV ACCESS PATENT AND INTACT, NO REDNESS OR SWELLING NOTED.
[2018-08-23 20:22] VITALS: BP 107/49
[2018-08-23] MEDS: INSULIN GLARGINE, 100 UNIT/ML CARTRIDGE SQ SCH (21:24)
[2018-08-23] MEDS: *INSULIN REGULAR(HUMULIN R)HUM 100 UNIT/ML VIAL SQ PRN (21:28)
[2018-08-24] MEDS: HYDROMORPHONE 1 MG/1 ML DISP.SYRIN IV PRN ×5 (02:44→17:07)
[2018-08-24] MEDS: BLOOD SUGAR DIAGNOSTIC 1 EACH STRIP VI SCH ×3 (06:51→17:08)
--- NOTE | 2018-08-24 07:10 | NUR ---
REPORT GIVEN AT THE BEDSIDE TO GUERITA HERNANDEZ. QUESTIONS CONCERNS ADDRESSED. PATIENT SEEN IN BED WITH EYES CLOSED. IV HEPLOCKED. BED DOWN LOCKED SAFETY PRECAUTIONS IN PLAC.E
--- NOTE | 2018-08-24 07:40 | NUR ---
MS RN OPENING NOTES PATIENT IN BED RESTING, AWAKE, ALERT AND ORIENTEDX4. PATIENT BREATHING ON ROOM AIR. BREATHING IS NON LABORED AND EVEN. PATIENT IN NO ACUTE DISTRESS. PATIENT MAINTAINED ON ISOLATION PRECAUTIONS. PATIENT AMBULATORY WITH ASSIST. PATIENT BED LOCKED AND IN LOW POSITION. PATIENT CALL LIGHT WITHIN REACH. WILL CONTINUE TO MONITOR.
[2018-08-24 08:00] VITALS: BP 100/50
[2018-08-24] MEDS: GABAPENTIN 100 MG CAPSULE PO SCH ×3 (08:15→17:07)
[2018-08-24] MEDS: NICOTINE PATCH (14MG) 14 MG PATCH.TD24 TD SCH (08:15)
[2018-08-24] MEDS: LACTOBACILLUS RHAMNOSUS GG 1 EACH CAP.SPRINK PO SCH ×2 (08:15→17:07)
[2018-08-24] MEDS: DULOXETINE HCL 30 MG CAPSULE.DR PO SCH (08:15)
[2018-08-24] MEDS: PANTOPRAZOLE 40 MG TABLET.DR PO SCH ×2 (08:16→17:08)
[2018-08-24] MEDS: FERROUS SULFATE (325 MG) 325 MG/TAB TABLET PO SCH ×2 (08:16→17:07)
[2018-08-24] MEDS: VITAMIN B COMP W-C 1 TAB TABLET PO SCH (08:16)
[2018-08-24] MEDS: PREGABALIN 100 MG CAPSULE PO SCH ×2 (08:16→17:07)
[2018-08-24] MEDS: FOLIC ACID 1 MG TABLET PO SCH (08:16)
[2018-08-24] MEDS: SEVELAMER CARBONATE 800 MG TABLET PO SCH ×3 (08:16→17:11)
[2018-08-24] MEDS: CARVEDILOL 12.5 MG TABLET PO SCH ×2 (08:17→17:08)
[2018-08-24] MEDS: AMLODIPINE BESYLATE 10 MG TABLET PO SCH (08:17)
[2018-08-24] MEDS: PROSOURCE / PROSTAT (PYXIS) 30 ML UDC GT SCH ×3 (08:25→17:03)
[2018-08-24] MEDS: CLOTRIMAZOLE 1% 15 GM TUBE TP SCH ×2 (08:27→17:06)
[2018-08-24] MEDS: NEOMY SULF/BACITRAC ZN/POLY 15 GM TUBE TP SCH ×2 (08:27→17:06)
[2018-08-24] MEDS: INSULIN REGULAR, HUMAN 100 UNIT/ML 3 ML VIAL SQ PRN (12:35)
[2018-08-24 16:00] VITALS: BP 119/57
[2018-08-24] MEDS: VANCOMYCIN 500 MG in IV D5W 100 ML IV PRN (17:04)
[2018-08-24 17:08] VITALS: BP 119/60
--- NOTE | 2018-08-24 19:00 | NUR ---
MS RN NOTES CALLED [facility], GAVE REPORT TO CHARLEY HERNANDEZ. INSTRUCTED CHARLEY HERNANDEZ OF APPOINTMENT FOLLOW [employer], PROVIDED MD INFORMATION AND PHONE NUMBERS. PATIENT LEFT VIA GURNEY WITH AMBULANCE. PATIENT IS MEDICALLY STABLE. PATIENT IN NO ACUTE DISTRESS. MD AWARE OF ALL ABNORMAL LABS/TESTS. DISCHARGE INSTRUCTIONS PROVIDED. PATIENT VERBALIZED UNDERSTANDING OF FOLLOW UP APPOINTMENTS. ALL VALUABLE ITEMS RETURNED WITH THE PATIENT. VALUABLE BELONGING LIST SIGNED. DRESSING WAS CHANGED BY PA THIS AM. WOUND CARE INSTRUCTIONS PROVIDED TO SNF.
== END 2018-08-24 19:35 | DRG 853 ==
LOC: ER 13:08 → MED 16:14
PROVIDERS: ADMIT Registered Nurse; ATTEND Nurse Practitioner Acute Care
PROC: 0JBJ0ZZ Excision of Right Hand Subcutaneous Tissue and Fascia, Open Approach (ICD-10-PCS; principal; 2018-08-14)
PROC: 5A1D70Z Performance of Urinary Filtration, Intermittent, Less than 6 Hours Per Day (ICD-10-PCS; principal; 2018-08-14)
PROC: 5A1D70Z Performance of Urinary Filtration, Intermittent, Less than 6 Hours Per Day (ICD-10-PCS; 2018-08-16)
PROC: 05H533Z Insertion of Infusion Device into Right Subclavian Vein, Percutaneous Approach (ICD-10-PCS; 2018-08-18)
PROC: B546ZZA Ultrasonography of Right Subclavian Vein, Guidance (ICD-10-PCS; 2018-08-18)
PROC: 0KBC0ZZ Excision of Right Hand Muscle, Open Approach (ICD-10-PCS; 2018-08-18)
PROC: 5A1D70Z Performance of Urinary Filtration, Intermittent, Less than 6 Hours Per Day (ICD-10-PCS; 2018-08-18)
PROC: 0JBJ0ZZ Excision of Right Hand Subcutaneous Tissue and Fascia, Open Approach (ICD-10-PCS; 2018-08-18)
PROC: 0JBJ0ZZ Excision of Right Hand Subcutaneous Tissue and Fascia, Open Approach (ICD-10-PCS; 2018-08-20)
PROC: 0KBC0ZZ Excision of Right Hand Muscle, Open Approach (ICD-10-PCS; 2018-08-20)
PROC: 5A1D70Z Performance of Urinary Filtration, Intermittent, Less than 6 Hours Per Day (ICD-10-PCS; 2018-08-20)
PROC: 5A1D70Z Performance of Urinary Filtration, Intermittent, Less than 6 Hours Per Day (ICD-10-PCS; 2018-08-22)
PROC: 5A1D70Z Performance of Urinary Filtration, Intermittent, Less than 6 Hours Per Day (ICD-10-PCS; 2018-08-24)
DX: A41.9 Sepsis, unspecified organism (principal); N18.6 End stage renal disease; E43 Unspecified severe protein-calorie malnutrition; T23.331A Burn of third degree of multiple right fingers (nail), not including thumb, initial encounter; L03.113 Cellulitis of right upper limb; I12.0 Hypertensive chronic kidney disease with stage 5 chronic kidney disease or end stage renal disease; E87.1 Hypo-osmolality and hyponatremia; E11.52 Type 2 diabetes mellitus with diabetic peripheral angiopathy with gangrene; I96 Gangrene, not elsewhere classified; E87.2 Acidosis; N39.0 Urinary tract infection, site not specified; L02.511 Cutaneous abscess of right hand; M86.8X4 Other osteomyelitis, hand; E11.22 Type 2 diabetes mellitus with diabetic chronic kidney disease; E11.65 Type 2 diabetes mellitus with hyperglycemia; D63.1 Anemia in chronic kidney disease; E03.9 Hypothyroidism, unspecified; E87.5 Hyperkalemia; E78.5 Hyperlipidemia, unspecified; F17.210 Nicotine dependence, cigarettes, uncomplicated; K21.9 Gastro-esophageal reflux disease without esophagitis; I25.10 Atherosclerotic heart disease of native coronary artery without angina pectoris; Z99.2 Dependence on renal dialysis; Z93.3 Colostomy status; E11.42 Type 2 diabetes mellitus with diabetic polyneuropathy; E88.09 Other disorders of plasma-protein metabolism, not elsewhere classified; H54.8 Legal blindness, as defined in USA; J44.9 Chronic obstructive pulmonary disease, unspecified; M10.9 Gout, unspecified; Z93.2 Ileostomy status; G40.909 Epilepsy, unspecified, not intractable, without status epilepticus; F32.9 Major depressive disorder, single episode, unspecified; F41.9 Anxiety disorder, unspecified; G25.81 Restless legs syndrome; E11.69 Type 2 diabetes mellitus with other specified complication; L30.4 Erythema intertrigo; L98.8 Other specified disorders of the skin and subcutaneous tissue; S50.812A Abrasion of left forearm, initial encounter; S20.319A Abrasion of unspecified front wall of thorax, initial encounter; Z22.322 Carrier or suspected carrier of Methicillin resistant Staphylococcus aureus; Z68.26 Body mass index [BMI] 26.0-26.9, adult; X08.8XXA Exposure to other specified smoke, fire and flames, initial encounter; Y93.9 Activity, unspecified; Y92.129 Unspecified place in nursing home as the place of occurrence of the external cause; Z79.4 Long term (current) use of insulin; E11.610 Type 2 diabetes mellitus with diabetic neuropathic arthropathy
CPT/HCPCS: 36415; 73090-TC; 73130-TC; 73200-TC; 80048-TC; 80061-TC; 80076-TC; 80202-TC; 81000-TC; 82962-TC; 83605-TC; 83735-TC; 84100-TC; 84443-TC; 85025-TC; 85652-TC; 85730-TC; 86850-TC; 87040-TC; 87070-TC; 87081-TC; 87086-TC; 90935-TC; A6402; A6403; A6407; G0378; J1170; J1815; J2270; J2543; J3370; J3490; J7030; J7040; J7050; J7060

== ENCOUNTER 2018-09-21 21:56 | Inpatient (IN) | payer BC, MEDICAID ==
[~2018-09-21] VITALS: Ht 170.2 cm; Wt 75.3 kg
[~2018-09-21 21:56] MED LIST changes: +ACET-2605 PO; +ACET-868 PO; +BLOO-668 IN; +FOLI0.8T23 PO; +HYDR-3974 PO; -HYDR-4354 PO; +HYDR1DIS2 IV; +INSU100I30 SQ; +INSU100V3 SQ; +INSU100V7 SQ; -LIDO30AD10 TP; -LORA-259 PO; +NICO-676 TD; +VANC1PLA10 IV; -ZOLP5TAB2 PO
[2018-09-21 22:47] LABS: BASOPHILS # (AUTO) 0.1 /CMM (0.0-0.2); EOSINOPHILS % (AUTO) 7.2 % (0.0-6.0); HEMATOCRIT 35 % (39-51); HEMOGLOBIN 11.3 g/dL (13.5-17.5); LYMPHOCYTES # (AUTO) 1.3 /CMM (0.8-4.8); LYMPHOCYTES % (AUTO) 18.9 % (20.0-44.0); MEAN CORPUSCULAR HGB CONC 33 g/dl (31.0-36.0); MEAN CORPUSCULAR VOLUME 92 fL (80-96); MONOCYTES # (AUTO) 0.4 /CMM (0.1-1.30); MONOCYTES % (AUTO) 6.3 % (2.0-12.0); NEUTROPHILS # (AUTO) 4.5 /CMM (1.8-8.9); NEUTROPHILS % (AUTO) 66.6 % (43.0-81.0); PLATELET COUNT (AUTO) 165 /CMM (150-450); RED BLOOD CELL COUNT(AUTO) 3.79 MIL/uL (4.5-6.0); WHITE BLOOD COUNT (AUTO) 6.8 K/uL (4.3-11.0)
[2018-09-21 22:55] LABS: CALCIUM, SERUM 9.3 mg/dL (8.5-10.1)
[2018-09-21 23:01] LABS: CREATININE 11.8 mg/dL (0.6-1.3); POTASSIUM 7.8 mmol/L (3.5-5.1)
[2018-09-21] MEDS ORDERED: DEXTROSE 50%-WATER 50 ML DISP.SYRIN IVP ONE (23:30)
[2018-09-21] MEDS ORDERED: INSULIN REGULAR, HUMAN 100 UNIT/ML 10 ML VIAL IV ONE (23:30)
[2018-09-21] MEDS ORDERED: Calcium Gluconate 1GM/10ML 4.65 MEQ in IV NS 0.9% 50 ML IV ONE (23:30)
[2018-09-21] MEDS ORDERED: Calcium Gluconate 0.465 MEQ/ML VIAL IV ONE (23:31)
[2018-09-21] MEDS ORDERED: INSULIN REGULAR, HUMAN 100 UNIT/ML 10 ML VIAL ONE (23:31)
[2018-09-21] MEDS ORDERED: DEXTROSE 50%-WATER 50 ML DISP.SYRIN ONE (23:31)
[2018-09-22 00:45] VITALS: BP 109/39
[2018-09-22 01:21] VITALS: BP 109/39
[2018-09-22] MEDS ORDERED: Z GUARD REMEDY 2 OZ OINT TP PRN (01:30)
[2018-09-22] MEDS ORDERED: MAG HYDROX/AL HYDROX/SIMETH 30 ML UDC PO PRN (01:30)
[2018-09-22] MEDS ORDERED: MAGNESIUM HYDROXIDE 30 ML UDC PO PRN (01:30)
[2018-09-22] MEDS ORDERED: ONDANSETRON HCL/PF 4 MG/2 ML VIAL IVP PRN (01:30)
[2018-09-22] MEDS ORDERED: ACETAMINOPHEN 325 MG TABLET PO PRN (01:30)
[2018-09-22] MEDS: HYDROCODONE/APAP 5/325MG 1 EACH TABLET PO PRN ×3 (02:16→22:09)
[2018-09-22 04:00] VITALS: BP 131/39
[2018-09-22 08:00] VITALS: BP 107/56
[2018-09-22 08:12] LABS: BASOPHILS # (AUTO) 0.1 /CMM (0.0-0.2); BASOPHILS % (AUTO) 1.1 % (0.0-2.0); EOSINOPHILS % (AUTO) 7.4 % (0.0-6.0); HEMATOCRIT 32 % (39-51); HEMOGLOBIN 10.2 g/dL (13.5-17.5); LYMPHOCYTES # (AUTO) 1.7 /CMM (0.8-4.8); LYMPHOCYTES % (AUTO) 28.6 % (20.0-44.0); MEAN CORPUSCULAR HGB CONC 32 g/dl (31.0-36.0); MEAN CORPUSCULAR VOLUME 91 fL (80-96); MONOCYTES # (AUTO) 0.5 /CMM (0.1-1.30); MONOCYTES % (AUTO) 8.3 % (2.0-12.0); NEUTROPHILS # (AUTO) 3.2 /CMM (1.8-8.9); NEUTROPHILS % (AUTO) 54.6 % (43.0-81.0); PLATELET COUNT (AUTO) 157 /CMM (150-450); RED BLOOD CELL COUNT(AUTO) 3.47 MIL/uL (4.5-6.0); WHITE BLOOD COUNT (AUTO) 5.9 K/uL (4.3-11.0)
[2018-09-22 08:24] LABS: ALANINE AMINOTRANSFERASE 17 U/L (12-78); ALBUMIN 3.1 g/dL (3.4-5.0); ALKALINE PHOSPHATASE 192 U/L (46-116); ASPARTATE AMINOTRANSFERASE 11 U/L (15-37); BILIRUBIN,TOTAL 0.4 mg/dL (0.2-1.0); CALCIUM, SERUM 9.4 mg/dL (8.5-10.1); CARBON DIOXIDE 14 mmol/L (21-32); CHLORIDE 102 mmol/L (98-107); GLUCOSE 158 mg/dL (74-106); PHOSPHORUS 7.7 mg/dL (2.5-4.9); SODIUM SERUM 134 mmol/L (136-145); TOTAL PROTEIN, SERUM 6.8 g/dL (6.4-8.2); UREA NITROGEN, BLOOD 77 mg/dL (7-18)
[2018-09-22 08:29] LABS: CREATININE 12.9 mg/dL (0.6-1.3); POTASSIUM 8.4 mmol/L (3.5-5.1)
[2018-09-22] MEDS ORDERED: ACET-868 PO (08:31)
[2018-09-22] MEDS ORDERED: INSU100C10 SQ (08:31)
[2018-09-22] MEDS ORDERED: HYDR-3980 PO (08:31)
[2018-09-22] MEDS ORDERED: CEFT2FRO2 IV (08:31)
[2018-09-22] MEDS ORDERED: LOPERAMIDE HCL (2 MG CAP) 2 MG CAPSULE PO PRN (09:00)
[2018-09-22] MEDS ORDERED: EPOETIN ALFA (10,000 UNIT) 10,000 UNIT/ML VIAL IV SCH (12:00)
[2018-09-22] MEDS ORDERED: BLOOD SUGAR DIAGNOSTIC 1 EACH STRIP IN SCH (12:00)
[2018-09-22] MEDS ORDERED: FEE PK DOSING 1 MIN EA MC ONE (12:00)
[2018-09-22] MEDS ORDERED: VANCOMYCIN 1 GM in IV D5W 250 ML IV ONE (12:00)
[2018-09-22] MEDS: SEVELAMER CARBONATE 800 MG TABLET PO SCH ×2 (12:19→17:16)
[2018-09-22] MEDS ORDERED: DEXTROSE 50%-WATER 50 ML DISP.SYRIN IV PRN (12:30)
[2018-09-22] MEDS ORDERED: LIDOCAINE 1%-EPI 1:100,000 20 ML VIAL TP STA (13:22)
[2018-09-22] MEDS ORDERED: DEXTROSE 10% IN WATER 250 ML BAG IV ONE (13:34)
[2018-09-22 16:00] VITALS: BP 99/73
[2018-09-22] MEDS: CLOTRIMAZOLE/BETAMETASONE DIPROPIONATE 15 GM TUBE TP SCH (17:00)
[2018-09-22] MEDS: BLOOD SUGAR DIAGNOSTIC 1 EACH STRIP IN SCH ×2 (17:21→22:00)
[2018-09-22] MEDS: INSULIN REGULAR, HUMAN 100 UNIT/ML 3 ML VIAL SQ PRN ×2 (17:22→22:02)
[2018-09-22] MEDS: NEOMY SULF/BACITRAC ZN/POLY 15 GM TUBE TP SCH (17:47)
[2018-09-22 20:00] VITALS: BP_SYST 106; BP_SYST 107; BP_DIAS 37; BP_DIAS 56
[2018-09-22 20:24] LABS: CALCIUM, SERUM 8.6 mg/dL (8.5-10.1)
[2018-09-22 20:26] LABS: CREATININE 8.8 mg/dL (0.6-1.3)
[2018-09-22 20:30] LABS: POTASSIUM 6.2 mmol/L (3.5-5.1)
[2018-09-23] MEDS: HYDROCODONE/APAP 5/325MG 1 EACH TABLET PO PRN ×4 (02:26→23:07)
[2018-09-23 04:00] VITALS: BP 113/63
[2018-09-23] MEDS: BLOOD SUGAR DIAGNOSTIC 1 EACH STRIP IN SCH ×4 (07:30→22:22)
[2018-09-23 07:53] LABS: BASOPHILS # (AUTO) 0.1 /CMM (0.0-0.2); BASOPHILS % (AUTO) 1.3 % (0.0-2.0); EOSINOPHILS % (AUTO) 6.2 % (0.0-6.0); HEMATOCRIT 31 % (39-51); HEMOGLOBIN 10.2 g/dL (13.5-17.5); LYMPHOCYTES # (AUTO) 2.1 /CMM (0.8-4.8); LYMPHOCYTES % (AUTO) 32.5 % (20.0-44.0); MEAN CORPUSCULAR HGB CONC 33 g/dl (31.0-36.0); MEAN CORPUSCULAR VOLUME 91 fL (80-96); MONOCYTES # (AUTO) 0.5 /CMM (0.1-1.30); MONOCYTES % (AUTO) 7.3 % (2.0-12.0); NEUTROPHILS # (AUTO) 3.4 /CMM (1.8-8.9); NEUTROPHILS % (AUTO) 52.7 % (43.0-81.0); PLATELET COUNT (AUTO) 159 /CMM (150-450); RED BLOOD CELL COUNT(AUTO) 3.39 MIL/uL (4.5-6.0); WHITE BLOOD COUNT (AUTO) 6.4 K/uL (4.3-11.0)
[2018-09-23 08:00] VITALS: BP 115/39
[2018-09-23 08:01] LABS: BILIRUBIN,TOTAL 0.4 mg/dL (0.2-1.0); MAGNESIUM 1.4 mg/dL (1.8-2.4); TOTAL PROTEIN, SERUM 6.6 g/dL (6.4-8.2)
[2018-09-23 08:06] LABS: POTASSIUM 6.2 mmol/L (3.5-5.1)
[2018-09-23 08:07] LABS: CREATININE 10.1 mg/dL (0.6-1.3)
[2018-09-23] MEDS: CLOTRIMAZOLE/BETAMETASONE DIPROPIONATE 15 GM TUBE TP SCH ×2 (09:00→17:39)
[2018-09-23] MEDS: HYDROGEL DRESSING 90 GM TUBE TP SCH (09:00)
[2018-09-23] MEDS: NEOMY SULF/BACITRAC ZN/POLY 15 GM TUBE TP SCH ×2 (09:00→17:39)
[2018-09-23 10:00] VITALS: BP 105/49
[2018-09-23] MEDS: SEVELAMER CARBONATE 800 MG TABLET PO SCH ×3 (10:01→17:38)
[2018-09-23 16:00] VITALS: BP 129/47
[2018-09-23] MEDS: INSULIN REGULAR, HUMAN 100 UNIT/ML 3 ML VIAL SQ PRN ×2 (17:50→22:25)
[2018-09-23 20:00] VITALS: BP 128/56
[2018-09-23] MEDS ORDERED: GABAPENTIN 100 MG CAPSULE PO ONE (23:00)
[2018-09-24] MEDS ORDERED: PREGABALIN 100 MG CAPSULE PO ONE (00:40)
[2018-09-24] MEDS: HYDROCODONE/APAP 5/325MG 1 EACH TABLET PO PRN ×2 (03:53→20:39)
[2018-09-24 04:00] VITALS: BP 111/48
[2018-09-24] MEDS ORDERED: MORPHINE SULFATE INJ 2 MG/ML DISP.SYRIN IV ONE (05:30)
[2018-09-24 06:41] LABS: BASOPHILS # (AUTO) 0.1 /CMM (0.0-0.2); BASOPHILS % (AUTO) 1.3 % (0.0-2.0); EOSINOPHILS % (AUTO) 6.9 % (0.0-6.0); HEMATOCRIT 29 % (39-51); HEMOGLOBIN 9.6 g/dL (13.5-17.5); LYMPHOCYTES # (AUTO) 1.8 /CMM (0.8-4.8); LYMPHOCYTES % (AUTO) 30.2 % (20.0-44.0); MEAN CORPUSCULAR HGB CONC 33 g/dl (31.0-36.0); MEAN CORPUSCULAR VOLUME 90 fL (80-96); MONOCYTES # (AUTO) 0.5 /CMM (0.1-1.30); MONOCYTES % (AUTO) 7.9 % (2.0-12.0); NEUTROPHILS # (AUTO) 3.3 /CMM (1.8-8.9); NEUTROPHILS % (AUTO) 53.7 % (43.0-81.0); PLATELET COUNT (AUTO) 154 /CMM (150-450); RED BLOOD CELL COUNT(AUTO) 3.21 MIL/uL (4.5-6.0); WHITE BLOOD COUNT (AUTO) 6.1 K/uL (4.3-11.0)
[2018-09-24 07:03] LABS: CALCIUM, SERUM 8.9 mg/dL (8.5-10.1); MAGNESIUM 1.5 mg/dL (1.8-2.4); PHOSPHORUS 5.3 mg/dL (2.5-4.9); POTASSIUM 5.4 mmol/L (3.5-5.1)
[2018-09-24 07:43] LABS: CREATININE 8.1 mg/dL (0.6-1.3)
[2018-09-24 08:00] VITALS: BP 115/38
[2018-09-24] MEDS: SEVELAMER CARBONATE 800 MG TABLET PO SCH ×3 (08:23→17:04)
[2018-09-24] MEDS: LOPERAMIDE HCL (2 MG CAP) 2 MG CAPSULE PO SCH (08:23)
[2018-09-24] MEDS: NEOMY SULF/BACITRAC ZN/POLY 15 GM TUBE TP SCH ×2 (08:24→16:08)
[2018-09-24] MEDS: HYDROGEL DRESSING 90 GM TUBE TP SCH (08:24)
[2018-09-24] MEDS: CLOTRIMAZOLE/BETAMETASONE DIPROPIONATE 15 GM TUBE TP SCH ×2 (08:26→16:08)
[2018-09-24] MEDS: BLOOD SUGAR DIAGNOSTIC 1 EACH STRIP IN SCH ×4 (08:26→23:10)
[2018-09-24] MEDS: INSULIN REGULAR, HUMAN 100 UNIT/ML 3 ML VIAL SQ PRN ×3 (12:25→23:10)
[2018-09-24] MEDS ORDERED: MAGNESIUM OXIDE 400 MG TABLET PO ONE (14:30)
[2018-09-24] MEDS: FERROUS SULFATE (325 MG) 325 MG/TAB TABLET PO SCH ×2 (14:58→16:08)
[2018-09-24] MEDS: GABAPENTIN 100 MG CAPSULE PO SCH (14:59)
[2018-09-24] MEDS: PREGABALIN 100 MG CAPSULE PO SCH (15:01)
[2018-09-24] MEDS: DULOXETINE HCL 30 MG CAPSULE.DR PO SCH ×2 (15:02→20:39)
[2018-09-24 16:00] VITALS: BP 135/56
[2018-09-24 20:00] VITALS: BP 150/66
[2018-09-25] MEDS: HYDROCODONE/APAP 5/325MG 1 EACH TABLET PO PRN ×4 (02:38→23:51)
[2018-09-25 04:00] VITALS: BP 129/51
[2018-09-25 06:42] LABS: BASOPHILS # (AUTO) 0.1 /CMM (0.0-0.2); BASOPHILS % (AUTO) 0.7 % (0.0-2.0); HEMATOCRIT 32 % (39-51); HEMOGLOBIN 10.8 g/dL (13.5-17.5); LYMPHOCYTES # (AUTO) 1.6 /CMM (0.8-4.8); LYMPHOCYTES % (AUTO) 22.1 % (20.0-44.0); MEAN CORPUSCULAR HGB CONC 33 g/dl (31.0-36.0); MEAN CORPUSCULAR VOLUME 90 fL (80-96); MONOCYTES # (AUTO) 0.4 /CMM (0.1-1.30); MONOCYTES % (AUTO) 6.2 % (2.0-12.0); PLATELET COUNT (AUTO) 170 /CMM (150-450); WHITE BLOOD COUNT (AUTO) 7.3 K/uL (4.3-11.0)
[2018-09-25 07:16] LABS: CALCIUM, SERUM 9.2 mg/dL (8.5-10.1); MAGNESIUM 1.7 mg/dL (1.8-2.4); PHOSPHORUS 7.4 mg/dL (2.5-4.9)
[2018-09-25 07:18] LABS: CREATININE 9.6 mg/dL (0.6-1.3)
[2018-09-25 07:47] LABS: POTASSIUM 6.8 mmol/L (3.5-5.1)
[2018-09-25 08:00] VITALS: BP 133/52
[2018-09-25] MEDS: BLOOD SUGAR DIAGNOSTIC 1 EACH STRIP IN SCH ×4 (08:11→21:59)
[2018-09-25] MEDS: SEVELAMER CARBONATE 800 MG TABLET PO SCH ×3 (09:53→17:57)
[2018-09-25] MEDS: DULOXETINE HCL 30 MG CAPSULE.DR PO SCH ×2 (09:53→21:59)
[2018-09-25] MEDS: GABAPENTIN 100 MG CAPSULE PO SCH ×3 (09:53→17:57)
[2018-09-25] MEDS: PREGABALIN 100 MG CAPSULE PO SCH ×3 (09:53→21:59)
[2018-09-25] MEDS: FERROUS SULFATE (325 MG) 325 MG/TAB TABLET PO SCH ×2 (09:53→17:56)
[2018-09-25] MEDS: LOPERAMIDE HCL (2 MG CAP) 2 MG CAPSULE PO SCH (09:53)
[2018-09-25] MEDS: NEOMY SULF/BACITRAC ZN/POLY 15 GM TUBE TP SCH ×2 (10:37→17:58)
[2018-09-25] MEDS: HYDROGEL DRESSING 90 GM TUBE TP SCH (10:37)
[2018-09-25] MEDS: CLOTRIMAZOLE/BETAMETASONE DIPROPIONATE 15 GM TUBE TP SCH ×2 (10:37→17:57)
[2018-09-25] MEDS: VANCOMYCIN 500 MG in IV D5W 100 ML IV PRN (10:54)
[2018-09-25 16:00] VITALS: BP 127/50
[2018-09-25] MEDS: INSULIN REGULAR, HUMAN 100 UNIT/ML 3 ML VIAL SQ PRN ×2 (18:24→22:06)
[2018-09-25 20:00] VITALS: BP 127/53
[2018-09-26 04:00] VITALS: BP 130/52
[2018-09-26] MEDS: PREGABALIN 100 MG CAPSULE PO SCH ×3 (05:53→21:54)
[2018-09-26 08:00] VITALS: BP 97/56
[2018-09-26] MEDS: SEVELAMER CARBONATE 800 MG TABLET PO SCH ×3 (08:19→17:01)
[2018-09-26] MEDS: FERROUS SULFATE (325 MG) 325 MG/TAB TABLET PO SCH ×2 (08:19→16:39)
[2018-09-26] MEDS: CLOTRIMAZOLE/BETAMETASONE DIPROPIONATE 15 GM TUBE TP SCH ×2 (08:19→16:40)
[2018-09-26] MEDS: DULOXETINE HCL 30 MG CAPSULE.DR PO SCH ×2 (08:25→21:54)
[2018-09-26] MEDS: BLOOD SUGAR DIAGNOSTIC 1 EACH STRIP IN SCH ×4 (08:27→22:52)
[2018-09-26] MEDS: HYDROGEL DRESSING 90 GM TUBE TP SCH (08:27)
[2018-09-26] MEDS: NEOMY SULF/BACITRAC ZN/POLY 15 GM TUBE TP SCH ×2 (08:28→16:40)
[2018-09-26] MEDS: GABAPENTIN 100 MG CAPSULE PO SCH ×3 (10:45→16:39)
[2018-09-26] MEDS: LOPERAMIDE HCL (2 MG CAP) 2 MG CAPSULE PO SCH (11:50)
[2018-09-26] MEDS: INSULIN REGULAR, HUMAN 100 UNIT/ML 3 ML VIAL SQ PRN ×3 (12:07→22:57)
[2018-09-26 16:00] VITALS: BP 135/46
[2018-09-26 20:00] VITALS: BP 108/49
[2018-09-26 21:00] VITALS: BP 108/49
[2018-09-27] VITALS (48 sets, daily range): BP systolic 71–199; BP diastolic 28–93
[2018-09-27] MEDS: HYDROCODONE/APAP 5/325MG 1 EACH TABLET PO PRN ×3 (01:05→21:30)
[2018-09-27] MEDS: PREGABALIN 100 MG CAPSULE PO SCH ×3 (06:33→21:14)
[2018-09-27 06:55] LABS: BASOPHILS # (AUTO) 0.1 /CMM (0.0-0.2); BASOPHILS % (AUTO) 0.7 % (0.0-2.0); EOSINOPHILS % (AUTO) 4.6 % (0.0-6.0); HEMATOCRIT 35 % (39-51); HEMOGLOBIN 11.7 g/dL (13.5-17.5); LYMPHOCYTES # (AUTO) 1.8 /CMM (0.8-4.8); LYMPHOCYTES % (AUTO) 20.7 % (20.0-44.0); MEAN CORPUSCULAR HGB CONC 33 g/dl (31.0-36.0); MEAN CORPUSCULAR VOLUME 90 fL (80-96); MONOCYTES # (AUTO) 0.7 /CMM (0.1-1.30); MONOCYTES % (AUTO) 8.1 % (2.0-12.0); NEUTROPHILS # (AUTO) 5.7 /CMM (1.8-8.9); NEUTROPHILS % (AUTO) 65.9 % (43.0-81.0); PLATELET COUNT (AUTO) 161 /CMM (150-450); RED BLOOD CELL COUNT(AUTO) 3.92 MIL/uL (4.5-6.0); WHITE BLOOD COUNT (AUTO) 8.7 K/uL (4.3-11.0)
[2018-09-27 07:25] LABS: CALCIUM, SERUM 9.3 mg/dL (8.5-10.1); MAGNESIUM 1.9 mg/dL (1.8-2.4)
[2018-09-27 07:31] LABS: CREATININE 10.4 mg/dL (0.6-1.3); PHOSPHORUS 10.3 mg/dL (2.5-4.9); POTASSIUM 7.5 mmol/L (3.5-5.1)
[2018-09-27] MEDS: BLOOD SUGAR DIAGNOSTIC 1 EACH STRIP IN SCH ×4 (07:59→21:15)
[2018-09-27] MEDS: INSULIN REGULAR, HUMAN 100 UNIT/ML 3 ML VIAL SQ PRN ×4 (08:00→21:25)
[2018-09-27] MEDS: GABAPENTIN 100 MG CAPSULE PO SCH ×3 (09:28→17:30)
[2018-09-27] MEDS: FERROUS SULFATE (325 MG) 325 MG/TAB TABLET PO SCH ×2 (09:28→17:30)
[2018-09-27] MEDS: DULOXETINE HCL 30 MG CAPSULE.DR PO SCH ×2 (09:28→21:14)
[2018-09-27] MEDS: LOPERAMIDE HCL (2 MG CAP) 2 MG CAPSULE PO SCH (09:28)
[2018-09-27] MEDS: SEVELAMER CARBONATE 800 MG TABLET PO SCH ×3 (09:28→17:32)
[2018-09-27] MEDS: CLOTRIMAZOLE/BETAMETASONE DIPROPIONATE 15 GM TUBE TP SCH ×2 (09:29→17:30)
[2018-09-27] MEDS: HYDROGEL DRESSING 90 GM TUBE TP SCH (09:29)
[2018-09-27] MEDS: NEOMY SULF/BACITRAC ZN/POLY 15 GM TUBE TP SCH ×2 (09:29→17:30)
[2018-09-27] MEDS ORDERED: NOREPINEPHRINE 16 MG in IV D5W 500 ML IV PRN (14:00)
[2018-09-27 15:31] LABS: CALCIUM, SERUM 8.5 mg/dL (8.5-10.1); POTASSIUM 5.5 mmol/L (3.5-5.1)
[2018-09-27 15:35] LABS: CREATININE 10.1 mg/dL (0.6-1.3)
[2018-09-27] MEDS: VANCOMYCIN 500 MG in IV D5W 100 ML IV PRN (17:32)
[2018-09-28] VITALS (56 sets, daily range): BP systolic 57–140; BP diastolic 22–85
[2018-09-28 04:33] LABS: EOSINOPHILS % (AUTO) 4.9 % (0.0-6.0); HEMATOCRIT 32 % (39-51); HEMOGLOBIN 10.8 g/dL (13.5-17.5); LYMPHOCYTES # (AUTO) 1.6 /CMM (0.8-4.8); LYMPHOCYTES % (AUTO) 32.3 % (20.0-44.0); MEAN CORPUSCULAR HGB CONC 34 g/dl (31.0-36.0); MEAN CORPUSCULAR VOLUME 91 fL (80-96); MONOCYTES # (AUTO) 0.6 /CMM (0.1-1.30); MONOCYTES % (AUTO) 12.2 % (2.0-12.0); NEUTROPHILS # (AUTO) 2.5 /CMM (1.8-8.9); NEUTROPHILS % (AUTO) 49.6 % (43.0-81.0); PLATELET COUNT (AUTO) 127 /CMM (150-450); RED BLOOD CELL COUNT(AUTO) 3.56 MIL/uL (4.5-6.0)
[2018-09-28 04:50] LABS: CALCIUM, SERUM 8.7 mg/dL (8.5-10.1); MAGNESIUM 1.8 mg/dL (1.8-2.4); PHOSPHORUS 6.7 mg/dL (2.5-4.9); POTASSIUM 5.5 mmol/L (3.5-5.1)
[2018-09-28] MEDS: PREGABALIN 100 MG CAPSULE PO SCH ×3 (05:46→21:12)
[2018-09-28] MEDS: HYDROCODONE/APAP 5/325MG 1 EACH TABLET PO PRN ×3 (05:46→16:29)
[2018-09-28] MEDS: BLOOD SUGAR DIAGNOSTIC 1 EACH STRIP IN SCH ×4 (07:26→21:12)
[2018-09-28] MEDS: INSULIN REGULAR, HUMAN 100 UNIT/ML 3 ML VIAL SQ PRN ×3 (07:26→17:13)
[2018-09-28] MEDS: FERROUS SULFATE (325 MG) 325 MG/TAB TABLET PO SCH ×2 (08:12→16:28)
[2018-09-28] MEDS: DULOXETINE HCL 30 MG CAPSULE.DR PO SCH ×2 (08:12→21:12)
[2018-09-28] MEDS: SEVELAMER CARBONATE 800 MG TABLET PO SCH ×3 (08:12→17:10)
[2018-09-28] MEDS: GABAPENTIN 100 MG CAPSULE PO SCH ×3 (08:12→16:28)
[2018-09-28] MEDS: CLOTRIMAZOLE/BETAMETASONE DIPROPIONATE 15 GM TUBE TP SCH ×2 (08:13→16:29)
[2018-09-28] MEDS: HYDROGEL DRESSING 90 GM TUBE TP SCH (08:13)
[2018-09-28] MEDS: NEOMY SULF/BACITRAC ZN/POLY 15 GM TUBE TP SCH ×2 (08:13→16:29)
[2018-09-28] MEDS: LOPERAMIDE HCL (2 MG CAP) 2 MG CAPSULE PO SCH (08:15)
[2018-09-28 13:31] LABS: CALCIUM, SERUM 8.7 mg/dL (8.5-10.1); POTASSIUM 5.9 mmol/L (3.5-5.1)
[2018-09-28 13:33] LABS: CREATININE 7.6 mg/dL (0.6-1.3)
[2018-09-28] MEDS: VANCOMYCIN 500 MG in IV D5W 100 ML IV PRN (20:43)
[2018-09-29] VITALS (15 sets, daily range): BP systolic 97–155; BP diastolic 30–83
[2018-09-29] MEDS: HYDROCODONE/APAP 5/325MG 1 EACH TABLET PO PRN ×4 (00:03→21:13)
[2018-09-29] MEDS: PREGABALIN 100 MG CAPSULE PO SCH ×3 (04:14→20:56)
[2018-09-29 04:25] LABS: BASOPHILS % (AUTO) 1.4 % (0.0-2.0); EOSINOPHILS % (AUTO) 4.7 % (0.0-6.0); HEMATOCRIT 28 % (39-51); HEMOGLOBIN 9.3 g/dL (13.5-17.5); LYMPHOCYTES # (AUTO) 1.4 /CMM (0.8-4.8); LYMPHOCYTES % (AUTO) 38.9 % (20.0-44.0); MEAN CORPUSCULAR HGB CONC 34 g/dl (31.0-36.0); MEAN CORPUSCULAR VOLUME 91 fL (80-96); MONOCYTES # (AUTO) 0.4 /CMM (0.1-1.30); MONOCYTES % (AUTO) 11.3 % (2.0-12.0); NEUTROPHILS # (AUTO) 1.6 /CMM (1.8-8.9); NEUTROPHILS % (AUTO) 43.7 % (43.0-81.0); PLATELET COUNT (AUTO) 109 /CMM (150-450); RED BLOOD CELL COUNT(AUTO) 3.03 MIL/uL (4.5-6.0); WHITE BLOOD COUNT (AUTO) 3.6 K/uL (4.3-11.0)
[2018-09-29 04:39] LABS: CALCIUM, SERUM 8.5 mg/dL (8.5-10.1); CREATININE 5.7 mg/dL (0.6-1.3); MAGNESIUM 1.8 mg/dL (1.8-2.4); PHOSPHORUS 5.7 mg/dL (2.5-4.9); POTASSIUM 5.2 mmol/L (3.5-5.1)
[2018-09-29] MEDS: INSULIN REGULAR, HUMAN 100 UNIT/ML 3 ML VIAL SQ PRN ×3 (07:32→22:57)
[2018-09-29] MEDS: BLOOD SUGAR DIAGNOSTIC 1 EACH STRIP IN SCH ×4 (07:32→22:56)
[2018-09-29] MEDS: SEVELAMER CARBONATE 800 MG TABLET PO SCH ×3 (07:39→17:50)
[2018-09-29] MEDS: GABAPENTIN 100 MG CAPSULE PO SCH ×3 (08:20→17:50)
[2018-09-29] MEDS: DULOXETINE HCL 30 MG CAPSULE.DR PO SCH ×2 (08:20→20:56)
[2018-09-29] MEDS: FERROUS SULFATE (325 MG) 325 MG/TAB TABLET PO SCH ×2 (08:21→17:51)
[2018-09-29] MEDS: HYDROGEL DRESSING 90 GM TUBE TP SCH (08:21)
[2018-09-29] MEDS: CLOTRIMAZOLE/BETAMETASONE DIPROPIONATE 15 GM TUBE TP SCH ×2 (08:21→17:53)
[2018-09-29] MEDS: LOPERAMIDE HCL (2 MG CAP) 2 MG CAPSULE PO SCH (08:21)
[2018-09-29] MEDS: NEOMY SULF/BACITRAC ZN/POLY 15 GM TUBE TP SCH ×2 (08:22→17:53)
[2018-09-29] MEDS ORDERED: DIATR MEGLU/DIATRIZOATE SODIUM 30 ML BOTTLE (GASTROGRAPHIN) ONE (12:48)
[2018-09-29] MEDS ORDERED: IOHEXOL 50 ML IV ONE (12:50)
[2018-09-29] MEDS ORDERED: IOHEXOL-300 100 ML VIAL IV ONE (17:39)
[2018-09-29] MEDS ORDERED: DIATR MEGLU/DIATRIZOATE SODIUM 120 ML BOTTLE (GASTROGRAPHIN) ONE (17:40)
[2018-09-30] MEDS: PREGABALIN 100 MG CAPSULE PO SCH ×3 (05:33→21:30)
[2018-09-30] MEDS: HYDROCODONE/APAP 5/325MG 1 EACH TABLET PO PRN ×2 (05:55→22:02)
[2018-09-30 06:22] LABS: BASOPHILS # (AUTO) 0.1 /CMM (0.0-0.2); BASOPHILS % (AUTO) 1.3 % (0.0-2.0); EOSINOPHILS % (AUTO) 4.6 % (0.0-6.0); HEMATOCRIT 32 % (39-51); HEMOGLOBIN 10.5 g/dL (13.5-17.5); LYMPHOCYTES # (AUTO) 1.5 /CMM (0.8-4.8); LYMPHOCYTES % (AUTO) 27.2 % (20.0-44.0); MEAN CORPUSCULAR HGB CONC 33 g/dl (31.0-36.0); MEAN CORPUSCULAR VOLUME 91 fL (80-96); MONOCYTES # (AUTO) 0.5 /CMM (0.1-1.30); MONOCYTES % (AUTO) 9.1 % (2.0-12.0); NEUTROPHILS # (AUTO) 3.2 /CMM (1.8-8.9); NEUTROPHILS % (AUTO) 57.8 % (43.0-81.0); PLATELET COUNT (AUTO) 140 /CMM (150-450); RED BLOOD CELL COUNT(AUTO) 3.52 MIL/uL (4.5-6.0); WHITE BLOOD COUNT (AUTO) 5.5 K/uL (4.3-11.0)
[2018-09-30 06:38] LABS: CALCIUM, SERUM 8.6 mg/dL (8.5-10.1); MAGNESIUM 1.7 mg/dL (1.8-2.4); POTASSIUM 5.9 mmol/L (3.5-5.1)
[2018-09-30] MEDS: BLOOD SUGAR DIAGNOSTIC 1 EACH STRIP IN SCH ×4 (06:39→22:08)
[2018-09-30 06:41] LABS: CREATININE 7.5 mg/dL (0.6-1.3)
[2018-09-30 06:46] LABS: PHOSPHORUS 8.6 mg/dL (2.5-4.9)
[2018-09-30 08:00] VITALS: BP 152/35
[2018-09-30] MEDS: FERROUS SULFATE (325 MG) 325 MG/TAB TABLET PO SCH ×2 (08:18→17:27)
[2018-09-30] MEDS: GABAPENTIN 100 MG CAPSULE PO SCH ×3 (08:18→17:26)
[2018-09-30] MEDS: DULOXETINE HCL 30 MG CAPSULE.DR PO SCH ×2 (08:18→21:30)
[2018-09-30] MEDS: SEVELAMER CARBONATE 800 MG TABLET PO SCH ×3 (08:18→17:27)
[2018-09-30] MEDS: LOPERAMIDE HCL (2 MG CAP) 2 MG CAPSULE PO SCH (08:18)
[2018-09-30] MEDS: CLOTRIMAZOLE/BETAMETASONE DIPROPIONATE 15 GM TUBE TP SCH ×2 (08:19→17:28)
[2018-09-30] MEDS: HYDROGEL DRESSING 90 GM TUBE TP SCH (08:19)
[2018-09-30] MEDS: NEOMY SULF/BACITRAC ZN/POLY 15 GM TUBE TP SCH ×2 (08:20→17:27)
[2018-09-30] MEDS: INSULIN REGULAR, HUMAN 100 UNIT/ML 3 ML VIAL SQ PRN ×3 (12:23→22:02)
[2018-09-30 16:00] VITALS: BP 158/59
[2018-09-30] MEDS: VANCOMYCIN 500 MG in IV D5W 100 ML IV PRN (17:57)
[2018-09-30 20:00] VITALS: BP 127/98
[2018-10-01] MEDS: PREGABALIN 100 MG CAPSULE PO SCH ×3 (05:42→21:16)
[2018-10-01] MEDS: HYDROCODONE/APAP 5/325MG 1 EACH TABLET PO PRN ×3 (05:42→21:29)
[2018-10-01] MEDS: BLOOD SUGAR DIAGNOSTIC 1 EACH STRIP IN SCH ×4 (06:41→21:49)
[2018-10-01 08:00] VITALS: BP 97/54
[2018-10-01] MEDS: DULOXETINE HCL 30 MG CAPSULE.DR PO SCH ×2 (09:00→21:16)
[2018-10-01] MEDS: FERROUS SULFATE (325 MG) 325 MG/TAB TABLET PO SCH ×2 (09:00→17:09)
[2018-10-01] MEDS: SEVELAMER CARBONATE 800 MG TABLET PO SCH ×3 (09:00→17:10)
[2018-10-01] MEDS: LOPERAMIDE HCL (2 MG CAP) 2 MG CAPSULE PO SCH (09:00)
[2018-10-01] MEDS: GABAPENTIN 100 MG CAPSULE PO SCH ×3 (09:00→17:10)
[2018-10-01] MEDS: HYDROGEL DRESSING 90 GM TUBE TP SCH (09:07)
[2018-10-01] MEDS: NEOMY SULF/BACITRAC ZN/POLY 15 GM TUBE TP SCH ×2 (09:07→17:13)
[2018-10-01] MEDS: CLOTRIMAZOLE/BETAMETASONE DIPROPIONATE 15 GM TUBE TP SCH ×2 (09:08→17:13)
[2018-10-01] MEDS: INSULIN REGULAR, HUMAN 100 UNIT/ML 3 ML VIAL SQ PRN ×2 (11:51→17:16)
[2018-10-01] MEDS ORDERED: SODIUM POLYSTYRENE SULFONATE 15 G/60 ML BOTTLE PO ONE (15:30)
[2018-10-01 16:00] VITALS: BP 124/49
[2018-10-01 20:00] VITALS: BP 120/68
[2018-10-01 20:16] VITALS: BP 120/68
[2018-10-02] MEDS: PREGABALIN 100 MG CAPSULE PO SCH ×3 (05:04→21:40)
[2018-10-02] MEDS: HYDROCODONE/APAP 5/325MG 1 EACH TABLET PO PRN ×3 (05:04→21:54)
[2018-10-02] MEDS: BLOOD SUGAR DIAGNOSTIC 1 EACH STRIP IN SCH ×4 (06:58→21:51)
[2018-10-02 07:19] LABS: BILIRUBIN,TOTAL 0.5 mg/dL (0.2-1.0); CALCIUM, SERUM 8.7 mg/dL (8.5-10.1); MAGNESIUM 1.8 mg/dL (1.8-2.4); PHOSPHORUS 6.1 mg/dL (2.5-4.9); POTASSIUM 4.7 mmol/L (3.5-5.1); TOTAL PROTEIN, SERUM 6.3 g/dL (6.4-8.2)
[2018-10-02 07:25] LABS: BASOPHILS # (AUTO) 0.1 /CMM (0.0-0.2); BASOPHILS % (AUTO) 1.4 % (0.0-2.0); EOSINOPHILS % (AUTO) 5.5 % (0.0-6.0); HEMATOCRIT 31 % (39-51); LYMPHOCYTES # (AUTO) 1.7 /CMM (0.8-4.8); MEAN CORPUSCULAR HGB CONC 33 g/dl (31.0-36.0); MEAN CORPUSCULAR VOLUME 91 fL (80-96); MONOCYTES # (AUTO) 0.5 /CMM (0.1-1.30); NEUTROPHILS # (AUTO) 2.6 /CMM (1.8-8.9); NEUTROPHILS % (AUTO) 50.1 % (43.0-81.0); PLATELET COUNT (AUTO) 136 /CMM (150-450); RED BLOOD CELL COUNT(AUTO) 3.38 MIL/uL (4.5-6.0); WHITE BLOOD COUNT (AUTO) 5.2 K/uL (4.3-11.0)
[2018-10-02 08:00] VITALS: BP 128/50
[2018-10-02] MEDS: GABAPENTIN 100 MG CAPSULE PO SCH ×3 (08:48→16:50)
[2018-10-02] MEDS: SEVELAMER CARBONATE 800 MG TABLET PO SCH ×3 (08:48→17:02)
[2018-10-02] MEDS: FERROUS SULFATE (325 MG) 325 MG/TAB TABLET PO SCH ×2 (08:48→16:49)
[2018-10-02] MEDS: LOPERAMIDE HCL (2 MG CAP) 2 MG CAPSULE PO SCH (08:49)
[2018-10-02] MEDS: DULOXETINE HCL 30 MG CAPSULE.DR PO SCH ×2 (08:49→21:40)
[2018-10-02] MEDS: CLOTRIMAZOLE/BETAMETASONE DIPROPIONATE 15 GM TUBE TP SCH ×2 (08:50→16:50)
[2018-10-02] MEDS: HYDROGEL DRESSING 90 GM TUBE TP SCH (08:50)
[2018-10-02] MEDS: NEOMY SULF/BACITRAC ZN/POLY 15 GM TUBE TP SCH ×2 (08:50→16:50)
[2018-10-02] MEDS: INSULIN REGULAR, HUMAN 100 UNIT/ML 3 ML VIAL SQ PRN (12:46)
[2018-10-02 16:00] VITALS: BP 131/101
[2018-10-02 20:00] VITALS: BP 102/60
[2018-10-03] MEDS: PREGABALIN 100 MG CAPSULE PO SCH ×3 (05:06→22:46)
[2018-10-03] MEDS: HYDROCODONE/APAP 5/325MG 1 EACH TABLET PO PRN ×3 (06:33→22:46)
[2018-10-03] MEDS: BLOOD SUGAR DIAGNOSTIC 1 EACH STRIP IN SCH ×4 (06:35→21:44)
[2018-10-03 06:43] LABS: BASOPHILS % (AUTO) 0.9 % (0.0-2.0); EOSINOPHILS % (AUTO) 3.9 % (0.0-6.0); HEMATOCRIT 31 % (39-51); HEMOGLOBIN 10.3 g/dL (13.5-17.5); LYMPHOCYTES # (AUTO) 1.2 /CMM (0.8-4.8); LYMPHOCYTES % (AUTO) 25.4 % (20.0-44.0); MEAN CORPUSCULAR HGB CONC 33 g/dl (31.0-36.0); MEAN CORPUSCULAR VOLUME 91 fL (80-96); MONOCYTES # (AUTO) 0.3 /CMM (0.1-1.30); MONOCYTES % (AUTO) 7.6 % (2.0-12.0); NEUTROPHILS # (AUTO) 2.9 /CMM (1.8-8.9); NEUTROPHILS % (AUTO) 62.2 % (43.0-81.0); PLATELET COUNT (AUTO) 118 /CMM (150-450); RED BLOOD CELL COUNT(AUTO) 3.38 MIL/uL (4.5-6.0); WHITE BLOOD COUNT (AUTO) 4.6 K/uL (4.3-11.0)
[2018-10-03 07:10] LABS: BILIRUBIN,TOTAL 0.4 mg/dL (0.2-1.0); CALCIUM, SERUM 8.8 mg/dL (8.5-10.1); MAGNESIUM 1.9 mg/dL (1.8-2.4); POTASSIUM 5.9 mmol/L (3.5-5.1); TOTAL PROTEIN, SERUM 6.3 g/dL (6.4-8.2)
[2018-10-03 07:11] LABS: CREATININE 7.8 mg/dL (0.6-1.3)
[2018-10-03 07:12] LABS: PHOSPHORUS 9.2 mg/dL (2.5-4.9)
[2018-10-03 08:00] VITALS: BP 149/71
[2018-10-03] MEDS: DULOXETINE HCL 30 MG CAPSULE.DR PO SCH ×2 (09:22→22:46)
[2018-10-03] MEDS: SEVELAMER CARBONATE 800 MG TABLET PO SCH ×3 (09:22→16:47)
[2018-10-03] MEDS: FERROUS SULFATE (325 MG) 325 MG/TAB TABLET PO SCH ×2 (09:22→16:43)
[2018-10-03] MEDS: LOPERAMIDE HCL (2 MG CAP) 2 MG CAPSULE PO SCH (09:22)
[2018-10-03] MEDS: GABAPENTIN 100 MG CAPSULE PO SCH ×3 (09:22→16:43)
[2018-10-03] MEDS: HYDROGEL DRESSING 90 GM TUBE TP SCH (09:25)
[2018-10-03] MEDS: CLOTRIMAZOLE/BETAMETASONE DIPROPIONATE 15 GM TUBE TP SCH ×2 (09:26→16:53)
[2018-10-03] MEDS: NEOMY SULF/BACITRAC ZN/POLY 15 GM TUBE TP SCH ×2 (09:27→16:53)
[2018-10-03] MEDS: PROSOURCE / PROSTAT (PYXIS) 30 ML UDC PO SCH (09:28)
[2018-10-03] MEDS: INSULIN REGULAR, HUMAN 100 UNIT/ML 3 ML VIAL SQ PRN (13:00)
[2018-10-03 16:00] VITALS: BP 101/39
[2018-10-03 20:00] VITALS: BP 160/51
[2018-10-03] MEDS: VANCOMYCIN 500 MG in IV D5W 100 ML IV PRN (22:47)
[2018-10-04] VITALS: BP 145/83
[2018-10-04] MEDS: PREGABALIN 100 MG CAPSULE PO SCH ×3 (05:06→21:40)
[2018-10-04] MEDS: HYDROCODONE/APAP 5/325MG 1 EACH TABLET PO PRN ×3 (06:00→21:40)
[2018-10-04] MEDS: BLOOD SUGAR DIAGNOSTIC 1 EACH STRIP IN SCH ×4 (06:00→22:24)
[2018-10-04 06:49] LABS: CALCIUM, SERUM 8.7 mg/dL (8.5-10.1); CREATININE 6.4 mg/dL (0.6-1.3); POTASSIUM 4.7 mmol/L (3.5-5.1)
[2018-10-04 08:00] VITALS: BP 121/56
[2018-10-04 08:25] VITALS: BP 121/56
[2018-10-04] MEDS: FERROUS SULFATE (325 MG) 325 MG/TAB TABLET PO SCH ×2 (08:39→17:29)
[2018-10-04] MEDS: DULOXETINE HCL 30 MG CAPSULE.DR PO SCH ×2 (08:39→21:39)
[2018-10-04] MEDS: SEVELAMER CARBONATE 800 MG TABLET PO SCH ×3 (08:39→17:29)
[2018-10-04] MEDS: LOPERAMIDE HCL (2 MG CAP) 2 MG CAPSULE PO SCH (08:39)
[2018-10-04] MEDS: GABAPENTIN 100 MG CAPSULE PO SCH ×3 (08:39→17:29)
[2018-10-04] MEDS: HYDROGEL DRESSING 90 GM TUBE TP SCH (08:41)
[2018-10-04] MEDS: CLOTRIMAZOLE/BETAMETASONE DIPROPIONATE 15 GM TUBE TP SCH ×2 (08:41→17:34)
[2018-10-04] MEDS: NEOMY SULF/BACITRAC ZN/POLY 15 GM TUBE TP SCH ×2 (08:42→17:34)
[2018-10-04] MEDS: PROSOURCE / PROSTAT (PYXIS) 30 ML UDC PO SCH (08:51)
[2018-10-04] MEDS: INSULIN REGULAR, HUMAN 100 UNIT/ML 3 ML VIAL SQ PRN ×2 (13:04→17:36)
[2018-10-04 16:00] VITALS: BP 149/71
[2018-10-04 20:00] VITALS: BP 121/58
[2018-10-05] MEDS: PREGABALIN 100 MG CAPSULE PO SCH ×2 (06:11→13:05)
[2018-10-05] MEDS: HYDROCODONE/APAP 5/325MG 1 EACH TABLET PO PRN ×2 (06:18→14:46)
[2018-10-05] MEDS: BLOOD SUGAR DIAGNOSTIC 1 EACH STRIP IN SCH ×2 (06:56→13:02)
[2018-10-05 08:00] VITALS: BP 144/71
[2018-10-05] MEDS: FERROUS SULFATE (325 MG) 325 MG/TAB TABLET PO SCH (08:49)
[2018-10-05] MEDS: SEVELAMER CARBONATE 800 MG TABLET PO SCH ×2 (08:49→13:05)
[2018-10-05] MEDS: DULOXETINE HCL 30 MG CAPSULE.DR PO SCH (08:49)
[2018-10-05] MEDS: LOPERAMIDE HCL (2 MG CAP) 2 MG CAPSULE PO SCH (08:49)
[2018-10-05] MEDS: GABAPENTIN 100 MG CAPSULE PO SCH ×2 (08:49→13:05)
[2018-10-05] MEDS: PROSOURCE / PROSTAT (PYXIS) 30 ML UDC PO SCH (08:51)
[2018-10-05] MEDS: CLOTRIMAZOLE/BETAMETASONE DIPROPIONATE 15 GM TUBE TP SCH (08:58)
[2018-10-05] MEDS: HYDROGEL DRESSING 90 GM TUBE TP SCH (08:59)
[2018-10-05] MEDS: NEOMY SULF/BACITRAC ZN/POLY 15 GM TUBE TP SCH (08:59)
== END 2018-10-05 16:30 | DRG 981 ==
LOC: ER 22:02 → TELE1 09-22 00:26 → MEDSG1 09-22 10:36 → ICU 09-27 10:44 → MEDSG2 09-29 09:17
PROVIDERS: ADMIT Nurse Practitioner Acute Care; ATTEND Internal Medicine
PROC: 5A1D70Z Performance of Urinary Filtration, Intermittent, Less than 6 Hours Per Day (ICD-10-PCS; principal; 2018-09-22)
PROC: 0KBC0ZZ Excision of Right Hand Muscle, Open Approach (ICD-10-PCS; principal; 2018-09-22)
PROC: B548ZZA Ultrasonography of Superior Vena Cava, Guidance (ICD-10-PCS; principal; 2018-09-22)
PROC: 05PYX3Z Removal of Infusion Device from Upper Vein, External Approach (ICD-10-PCS; principal; 2018-09-22)
PROC: 02HV33Z Insertion of Infusion Device into Superior Vena Cava, Percutaneous Approach (ICD-10-PCS; principal; 2018-09-22)
PROC: 0KBC0ZZ Excision of Right Hand Muscle, Open Approach (ICD-10-PCS; 2018-09-28)
PROC: 0KBC0ZZ Excision of Right Hand Muscle, Open Approach (ICD-10-PCS; 2018-09-30)
PROC: 0KBC0ZZ Excision of Right Hand Muscle, Open Approach (ICD-10-PCS; 2018-10-02)
DX: L03.113 Cellulitis of right upper limb (principal); N18.6 End stage renal disease; S21.119A Laceration without foreign body of unspecified front wall of thorax without penetration into thoracic cavity, initial encounter; I12.0 Hypertensive chronic kidney disease with stage 5 chronic kidney disease or end stage renal disease; E87.1 Hypo-osmolality and hyponatremia; E87.5 Hyperkalemia; Z99.2 Dependence on renal dialysis; Z79.4 Long term (current) use of insulin; E11.22 Type 2 diabetes mellitus with diabetic chronic kidney disease; D63.1 Anemia in chronic kidney disease; E83.39 Other disorders of phosphorus metabolism; E83.42 Hypomagnesemia; F17.210 Nicotine dependence, cigarettes, uncomplicated; Z94.7 Corneal transplant status; Z93.2 Ileostomy status; Z83.3 Family history of diabetes mellitus; Z82.49 Family history of ischemic heart disease and other diseases of the circulatory system; L30.4 Erythema intertrigo; K21.9 Gastro-esophageal reflux disease without esophagitis; J44.9 Chronic obstructive pulmonary disease, unspecified; Z22.322 Carrier or suspected carrier of Methicillin resistant Staphylococcus aureus; E11.65 Type 2 diabetes mellitus with hyperglycemia; E88.09 Other disorders of plasma-protein metabolism, not elsewhere classified; E11.42 Type 2 diabetes mellitus with diabetic polyneuropathy; S61.401A Unspecified open wound of right hand, initial encounter; X58.XXXA Exposure to other specified factors, initial encounter; Y93.9 Activity, unspecified; Y92.129 Unspecified place in nursing home as the place of occurrence of the external cause; M10.9 Gout, unspecified; S61.200A Unspecified open wound of right index finger without damage to nail, initial encounter; S61.202A Unspecified open wound of right middle finger without damage to nail, initial encounter
CPT/HCPCS: 36415; 36569; 71045-TC; 71046; 80048-TC; 80053-TC; 80202-TC; 82962-TC; 83735-TC; 84100-TC; 84132-TC; 84484-TC; 85025-TC; 86706; 87081-TC; 87340; 90935-TC; A4216; A4217; A6248; A6253; A6402; A6403; A6407; C1751; G0378; J0610; J0885; J1815; J2270; J3370; J3490; J7050; J7060; Q9963; Q9967

== ENCOUNTER 2018-10-12 03:28 | Inpatient (IN) | payer BC, MEDICAID ==
[2018-10-12] VITALS (81 sets, daily range): BP systolic 33–136; BP diastolic 22–99
[~2018-10-12] VITALS: Ht 170.2 cm; Wt 77.0 kg
[~2018-10-12 03:28] MED LIST changes: -ACET-2605 PO; -AMLO10TA7 PO; -CARV12.52 PO; -FOLI0.8T23 PO; +HYDR-3980 PO; -HYDR1DIS2 IV; +INSU100C10 SQ; -INSU100I30 SQ; -INSU100V3 SQ; -NICO-676 TD; -VANC1PLA10 IV
--- NOTE | 2018-10-12 03:51 | NUR ---
Note undone in EDM - 10/12/18 at 0356 by ANAID SANTIAGO FROM [facility]. TO ER BED 9. AAO. BREATHING EVEN AND UNLABORED. NONVERBAL. BROUGHT IN FOR NUMBNESS ON ALL EXTREMETIES AND UNABLE TO MOVE. PT REPORTS THAT WHEN HE HAVE ELEVATED POTASSIUM THE REPORTED SYMPTOMS SHOW UP. WORSENING OVER THE PAST 3 DAYS. PT IS NOTED BRADYCARDIA, W/O S/S. PT HAVE A PICC ON SIRIA. HD SHUNT ON JESÚS. COLOSTOMY ON ABDOMEN. AWAITING MD FOR REGINALDO.
--- NOTE | 2018-10-12 03:51 | NUR ---
SANTIAGO FROM [facility] ON [facility]. TO ER BED 9. AAO. BREATHING EVEN AND UNLABORED. NONVERBAL. BROUGHT IN FOR NUMBNESS ON ALL EXTREMETIES AND UNABLE TO MOVE. PT REPORTS THAT WHEN HE HAVE ELEVATED POTASSIUM THE REPORTED SYMPTOMS SHOW UP. WORSENING OVER THE PAST 3 DAYS. PT IS NOTED BRADYCARDIA, W/O S/S. PT IS AFEBRILE. PUPILS PERRLA. FOLLOWS COMMAND AND COMPREHENDING. PT HAVE A PICC ON SIRIA. HD SHUNT ON JESÚS. COLOSTOMY ON ABDOMEN. AWAITING MD FOR EVAL.
[2018-10-12] MEDS ORDERED: SODIUM POLYSTYRENE SULFONATE 15 G/60 ML BOTTLE PO ONE (04:00)
[2018-10-12] MEDS ORDERED: SODIUM BICARBONATE SYR 50 MEQ/50 ML DISP.SYRIN IV ONE (04:00)
[2018-10-12] MEDS ORDERED: DEXTROSE 50%-WATER 50 ML DISP.SYRIN IV ONE (04:00)
[2018-10-12] MEDS ORDERED: INSULIN REGULAR, HUMAN 100 UNIT/ML 10 ML VIAL IV ONE ×2 (04:00→08:00)
[2018-10-12] MEDS ORDERED: CALCIUM CHLORIDE 1,000 MG/10 ML DISP.SYRIN IV ONE (04:00)
[2018-10-12] MEDS ORDERED: SODIUM BICARBONATE SYR 50 MEQ/50 ML DISP.SYRIN ONE (04:08)
[2018-10-12] MEDS ORDERED: SODIUM POLYSTYRENE SULFONATE 15 G/60 ML BOTTLE ONE (04:08)
[2018-10-12] MEDS ORDERED: CALCIUM CHLORIDE 1,000 MG/10 ML DISP.SYRIN ONE (04:09)
[2018-10-12] MEDS ORDERED: INSULIN REGULAR, HUMAN 100 UNIT/ML 10 ML VIAL ONE (04:09)
[2018-10-12] MEDS ORDERED: DEXTROSE 50%-WATER 50 ML DISP.SYRIN ONE (04:09)
[2018-10-12 04:22] LABS: CALCIUM, SERUM 9.8 mg/dL (8.5-10.1); CARBON DIOXIDE 17 mmol/L (21-32); CHLORIDE 92 mmol/L (98-107); GLUCOSE 164 mg/dL (74-106); SODIUM SERUM 122 mmol/L (136-145)
--- NOTE | 2018-10-12 04:23 | NUR ---
ORDERS RECEIVED AWAITING LAB RESULT PRIOR TO GIVING MEDS.
[2018-10-12 04:30] LABS: CREATININE 11.7 mg/dL (0.6-1.3); POTASSIUM 9.9 mmol/L (3.5-5.1); UREA NITROGEN, BLOOD 93 mg/dL (7-18)
--- NOTE | 2018-10-12 04:30 | NUR ---
POTASSIUM 9.9M, BUN 93, CREATININE 11.7.
--- NOTE | 2018-10-12 04:32 | NUR ---
CALLED NURSING SUP FOR BED.
[2018-10-12 04:51] LABS: BASOPHILS # (AUTO) 0.1 /CMM (0.0-0.2); BASOPHILS % (AUTO) 0.6 % (0.0-2.0); EOSINOPHILS % (AUTO) 1.7 % (0.0-6.0); HEMATOCRIT 37 % (39-51); HEMOGLOBIN 11.9 g/dL (13.5-17.5); LYMPHOCYTES # (AUTO) 2.1 /CMM (0.8-4.8); LYMPHOCYTES % (AUTO) 12.1 % (20.0-44.0); MEAN CORPUSCULAR HGB CONC 32 g/dl (31.0-36.0); MEAN CORPUSCULAR VOLUME 92 fL (80-96); MONOCYTES # (AUTO) 0.8 /CMM (0.1-1.30); MONOCYTES % (AUTO) 4.5 % (2.0-12.0); NEUTROPHILS # (AUTO) 14.3 /CMM (1.8-8.9); NEUTROPHILS % (AUTO) 81.1 % (43.0-81.0); PLATELET COUNT (AUTO) 196 /CMM (150-450); RED BLOOD CELL COUNT(AUTO) 3.99 MIL/uL (4.5-6.0); WHITE BLOOD COUNT (AUTO) 17.6 K/uL (4.3-11.0)
--- NOTE | 2018-10-12 04:51 | NUR ---
PT NOTED IN VTACH. PT IS ASSYMPTOMATIC. NO CP. AAO. PADDLES PLACED AND MONITORING. MADE AWARE. EKG AT BEDSIDE
--- NOTE | 2018-10-12 04:59 | NUR ---
PT BACK TO SINUS RHYTM HR 63, BP 127/38 RR 13 O2 97%
--- NOTE | 2018-10-12 05:18 | NUR ---
called unit for report. nurse is with another pt at the time being. will call back.
[2018-10-12] MEDS ORDERED: MAG HYDROX/AL HYDROX/SIMETH 30 ML UDC PO PRN (05:30)
[2018-10-12] MEDS ORDERED: ACETAMINOPHEN 325 MG TABLET PO PRN (05:30)
[2018-10-12] MEDS ORDERED: Z GUARD REMEDY 2 OZ OINT TP PRN (05:30)
[2018-10-12] MEDS ORDERED: ONDANSETRON HCL/PF 4 MG/2 ML VIAL IVP PRN (05:30)
[2018-10-12] MEDS ORDERED: MAGNESIUM HYDROXIDE 30 ML UDC PO PRN (05:30)
--- NOTE | 2018-10-12 05:39 | NUR ---
report given to concetta walker for pete. pt to 109
--- NOTE | 2018-10-12 05:40 | NUR ---
pt transported to unit on [address] with rn and emt at bedside w/ acls protocol. nad noted during transport.
[2018-10-12] MEDS ORDERED: DEXTROSE 50%-WATER 50 ML DISP.SYRIN IV PRN ×2 (06:00→08:30)
[2018-10-12] MEDS ORDERED: INSULIN REGULAR, HUMAN 100 UNIT/ML 3 ML VIAL SQ PRN (06:00)
[2018-10-12] MEDS ORDERED: *INSULIN REGULAR(HUMULIN R)HUM 100 UNIT/ML VIAL SQ PRN (06:00)
--- NOTE | 2018-10-12 06:00 | NUR ---
TD FOREST [employer]ODUCTS TEACHER NOTE: PT ADMITTED FROM ER VIA [facility] WITH ADMITTING DIAGNOSIS OF HYPERKALEMIA. PT IS ALERT AND ORIENTED X3. ABLE TO MAKE NEEDS KNOWN. NO APPARENT DISTRESS NOTED AT THIS TIME. NO COMPLAINTS OF PAIN OR DISCOMFORT. ON ROOM AIR, BREATHING EVEN AND UNLABORED WITH NORMAL RESPIRATIONS, SATURATING WELL. PT HAS A RIGHT UPPER ARM PICC LINE, INTACT AND PATENT, FLUSHING WELL. ON TELE MONITOR SINUS RHYTHM HR 75 BPM. PERTINENT ASSESSMENTS DONE, MULTIPLE SKIN ISSUES NOTED, HOWEVER PT REFUSED TO TAKE OFF BANDAGE ON HIS RIGHT ARM AND REFUSED TO HAVE A PICTURE TAKEN ON THAT ARM. VITAL SIGNS STABLE. KEPT CLEAN, DRY AND COMFORTABLE. CALL LIGHT PLACED WITHIN REACH. SAFETY AND FALL PRECAUTIONS OBSERVED AND MAINTAINED. WILL ENDORSE TO DAY SHIFT RN FOR CONTINUITY OF CARE.
[2018-10-12] MEDS: IV NS 0.9% 1,000 ML IV PRN ×2 (06:08→15:25)
--- NOTE | 2018-10-12 07:10 | NUR ---
PSYCHOLOGIST RESEARCH ASSISTANT: LINE SUPERVISOR RN arrived to floor following rapid response call. Pt sitting in bed, awake, alert following commands; Vtach 220's on monitor. Pt instructed to bear down with no response in cardiac rate. IV HL x2 present; IV NS infusing as ordered. Pads placed on pt. Dr Fernandez and Dr Montoya updated on pt status. Transferred to ICU for higher level of care. Addendum: 10/12/18 at 1923 by SARAH PULIDO RN Stat EKG ordered and reviewed verifying rhythm.
--- NOTE | 2018-10-12 07:10 | NUR ---
RN NOTE: AT AROUND 0710 PT HAD AN EPISODE OF VTACH HR 220s ON TELE MONITOR. UPON ASSESSMENT, PT IS ALERT AND ORIENTED X3. NO COMPLAINTS OF PAIN OR DISCOMFORT. NO SOB NOTED. BP 131/47, HR 224, TEMP 97.2, O2 SAT 100% ON ROOM AIR, RR 20. HOWEVER, VTACH WAS SUSTAINED ON TELE MONITOR, DESTINATION SPECIALIST ACTIVATED. MD NOTIFIED. PT TRANSFERRED TO ICU RM 252 VIA ACLS PROTOCOL. BEDSIDE REPORT GIVEN TO MARY SALAZAR FOR CONTINUITY OF CARE.
--- NOTE | 2018-10-12 07:25 | NUR ---
ICU/RN: Dr Montoya at Dr Fernandez at bedside; updated on pt status. S/P kayexelate administration per RN report. Repeat K level ordered. No indication for cardioversion per Dr Fernandez despite pressor support, per MD rhythm will be controlled after HD. Emergent HD ordered by Dr Morrow, awaiting arrival of HD RN.
[2018-10-12] MEDS ORDERED: BLOOD SUGAR DIAGNOSTIC 1 EACH STRIP VI SCH (07:30)
[2018-10-12 07:33] LABS: CALCIUM, SERUM 10.4 mg/dL (8.5-10.1)
[2018-10-12 07:35] LABS: CREATININE 12.2 mg/dL (0.6-1.3); POTASSIUM 9.8 mmol/L (3.5-5.1)
[2018-10-12] MEDS ORDERED: ALBUTEROL FS 2.5 MG/3 ML VIAL.NEB NEB ONE ×3 (08:00)
[2018-10-12] MEDS ORDERED: AMIODARONE 150 MG in IV D5W 100 ML IV ONE (08:00)
[2018-10-12] MEDS ORDERED: DEXTROSE 50%-WATER 50 ML DISP.SYRIN IVP ONE (08:00)
[2018-10-12] MEDS ORDERED: Calcium Gluconate 1GM/10ML 4.65 MEQ in IV NS 0.9% 50 ML IV ONE (08:00)
[2018-10-12] MEDS ORDERED: AMIODARONE 900 MG in IV D5W 482 ML IV PRN (08:00)
[2018-10-12] MEDS: SEVELAMER CARBONATE 800 MG TABLET PO SCH ×3 (08:30→17:43)
--- NOTE | 2018-10-12 08:57 | NUR ---
INITIAL COMMERCIAL REAL ESTATE SALES MANAGER NOTE RCVD PT TRANSFERRED FROM [facility] AFTER AUTOMATIC RIVETING MACHINE OPERATOR DUE TO SUSTAINED V-TACH, HYPERKALEMIA 9.8. PT REMAINS AWAKE AND ALERT, LETHARGIC, REMAINS ON V-TACH AFTER TRANSFER. DR. MICHAEL, DR BOND, DR. IBARRA WERE CONTACTED REGARDING PT. EMERGENT DIALYSIS TO BE DONE. DR. BOND MAKING ARRANGEMENTS. PT HAS SIRIA PICC DOUBLE LUMEN WITH ONE PORT CLOGGED, DECLOGGER ORDERED. WILL CONTINUE TO MONITOR PT. PT CONVERTED TO AFIB.
[2018-10-12] MEDS ORDERED: NOREPINEPHRINE 8 MG in IV D5W 500 ML IV PRN (09:00)
[2018-10-12] MEDS ORDERED: ALTEPLASE CATHFLO 2 MG/VIAL XX ONE (09:00)
[2018-10-12] MEDS: PREGABALIN 100 MG CAPSULE PO SCH ×2 (09:57→17:43)
[2018-10-12] MEDS: DULOXETINE HCL 30 MG CAPSULE.DR PO SCH ×2 (09:58→21:24)
[2018-10-12] MEDS: GABAPENTIN 100 MG CAPSULE PO SCH ×3 (09:58→17:43)
[2018-10-12] MEDS: FERROUS SULFATE (325 MG) 325 MG/TAB TABLET PO SCH ×2 (09:58→17:43)
[2018-10-12] MEDS: BLOOD SUGAR DIAGNOSTIC 1 EACH STRIP IN SCH ×3 (11:46→21:24)
[2018-10-12] MEDS: INSULIN REGULAR, HUMAN 100 UNIT/ML 3 ML VIAL SQ PRN ×2 (12:07→18:08)
[2018-10-12 13:47] LABS: CALCIUM, SERUM 8.5 mg/dL (8.5-10.1); CREATININE 6.4 mg/dL (0.6-1.3); POTASSIUM 4.1 mmol/L (3.5-5.1)
[2018-10-12] MEDS: HYDROGEL DRESSING 90 GM TUBE TP SCH ×2 (17:30→21:24)
[2018-10-12] MEDS: CLOTRIMAZOLE/BETAMETASONE DIPROPIONATE 15 GM TUBE TP SCH (17:30)
--- NOTE | 2018-10-12 18:24 | NUR ---
MEDICATION NOTE LOTRIMIN AND HYDROGEL REQUESTED FROM PHARMACY, NOT RECEIVED AT THIS TIME. DR. JOSE RE-DRESSED RIGHT HAND THIS AFTERNOON.
--- NOTE | 2018-10-12 18:25 | NUR ---
BRACELET AND BROOCH MAKER NOTE PT STABLE AT THIS TIME, SHOWING NO SIGNS OF DISTRESS, ON RA TOLERATING WELL, SR ON MONITOR, ILEOSTOMY BAG EMPTIED, GREEN LIQUID STOOL OBTAINED. SIRIA PICC C/D/I/PATENT, NO S/O INFILTRATION, PHLEBITIS OBSERVED. BOTH PORTS FLUSHING WELL, CATH-FLOW TO PURPLE PORT THIS AM. TOLERATED DIALYSIS WITH LOW LEVO DOSE WHICH WAS DISCONTINUED THIS AFTERNOON. PT'S CARE WILL BE ENDORSED TO SUPERVISOR POST WAVE RN FOR CONTINUITY OF CARE, BED IN LOW AND LOCKED POSITION, CALL LIGHT WITHIN REACH, HEAD OF BED ELEVATED.
--- NOTE | 2018-10-12 19:30 | NUR ---
PIERCING SPECIALIST INITIAL SHIFT NOTES RECEIVED PATIENT IN BED, ASLEEP AT THIS TIME. PATIENT EASILY WOKEN TO NAME, BUT LETHARGIC, ANSWERING 2-3 QUESTIONS BEFORE FALLING BACK ASLEEP, A/O X3 WHEN AWAKE, ABLE TO VERBALIZE NEEDS. PATIENT TOLERATING ROOM AIR WELL, SPO2 WNL ON RA, NO RESPIRATORY DISTRESS NOTED AT THIS TIME. NOTED WITH SIRIA PICC, BOTH PORTS FLUSHED WITH NS, PATENT AND INTACT. RLQ COLOSTOMY BAG IN PLACE, DRAINING LIQUID GREEN OUTPUT. JESÚS AV FISTULA NOTED WITH +BRUIT AND +THRILL, DRESSING REMOVED PER PATIENT REQUEST, NO BLEEDING NOTED AT SITE. BEDSIDE TELE MONITOR READING SINUS RHYTHM WITH BBB, HR 88 BPM AT THIS TIME. PLAN OF CARE DISCUSSED WITH THE PATIENT, WHOM VERBALIZES UNDERSTANDING. WILL CONTINUE TO CLOSELY MONITOR.
[2018-10-12] MEDS: *INSULIN REGULAR(HUMULIN R)HUM 100 UNIT/ML VIAL SQ PRN (21:28)
[2018-10-13] VITALS (23 sets, daily range): BP systolic 88–149; BP diastolic 40–84
--- NOTE | 2018-10-13 01:00 | NUR ---
CHAIRMAN AND CEO NOTES RN CALLED BY PATIENT STATING "MY BAG IS LEAKING." COLOSTOMY BAG CHANGED, BED BATH RENDERED. PATIENT TOLERATED WELL, COLOSTOMY BAG NOW CLEAN AND INTACT
[2018-10-13] MEDS: IV NS 0.9% 1,000 ML IV PRN (01:06)
[2018-10-13] MEDS: HYDROCODONE/APAP 5/325MG 1 EACH TABLET PO PRN ×2 (03:26→19:52)
[2018-10-13 05:00] LABS: BASOPHILS % (AUTO) 0.5 % (0.0-2.0); EOSINOPHILS % (AUTO) 2.8 % (0.0-6.0); HEMATOCRIT 29 % (39-51); HEMOGLOBIN 9.8 g/dL (13.5-17.5); LYMPHOCYTES # (AUTO) 0.8 /CMM (0.8-4.8); LYMPHOCYTES % (AUTO) 11.4 % (20.0-44.0); MEAN CORPUSCULAR HGB CONC 34 g/dl (31.0-36.0); MEAN CORPUSCULAR VOLUME 92 fL (80-96); MONOCYTES # (AUTO) 0.5 /CMM (0.1-1.30); MONOCYTES % (AUTO) 6.7 % (2.0-12.0); NEUTROPHILS # (AUTO) 5.8 /CMM (1.8-8.9); NEUTROPHILS % (AUTO) 78.6 % (43.0-81.0); PLATELET COUNT (AUTO) 127 /CMM (150-450); RED BLOOD CELL COUNT(AUTO) 3.15 MIL/uL (4.5-6.0); WHITE BLOOD COUNT (AUTO) 7.4 K/uL (4.3-11.0)
[2018-10-13 05:04] LABS: CALCIUM, SERUM 8.7 mg/dL (8.5-10.1); MAGNESIUM 1.7 mg/dL (1.8-2.4); PHOSPHORUS 6.3 mg/dL (2.5-4.9)
[2018-10-13 05:32] LABS: CREATININE 8.4 mg/dL (0.6-1.3); POTASSIUM 6.7 mmol/L (3.5-5.1)
--- NOTE | 2018-10-13 06:00 | NUR ---
MORTGAGE LOAN ORIGINATOR CLOSING NOTES PATIENT RESTING COMFORTABLY, MORE AWAKE AND ALERT COMPARED TO START OF SHIFT. RLQ ILEOSTOMY BAG IS CLEAN AND DRY, EMPTIED OUT DARK GREEN/BROWN COLORED OUTPUT. WILL ENDORSE THE PATIENT TO THE AM SHIFT NURSE FOR SADIA
--- NOTE | 2018-10-13 06:29 | NUR ---
SALES MARKETING NOTES RECEIVED CALL FROM LAB, SPOKE TO OMAR. CRITICAL LAB VALUES POTASSIUM, CREA 8.4. CALLED AND SPOKE TO DR DEBBIE MD MADE AWARE THAT PATIENT IS SCHEDULED FOR HD AGAIN TODAY. PER DR LEWIS, EVERO, JUST HD TODAY. WILL CONTINUE TO CLOSELY MONITOR
--- NOTE | 2018-10-13 07:00 | NUR ---
INSURANCE AGENCY MANAGER NOTES RECEIVED CALL FROM [facility], UPDATE GIVEN REGARDING HD (SCHEDULED, BUT UNKNOWN TO WHAT TIME PATIENT WILL RECEIVE HD). RECEIVED DELIVERY FROM [facility] WITH ALL WOUND VAC ITEMS.
--- NOTE | 2018-10-13 07:30 | NUR ---
NURSING CENTER TUTOR AM NOTES RECEIVED PATIENT IN BED, AWAKE, A BIT CONFUSED. ABLE TO VERBALIZE NEEDS. PATIENT TOLERATING ROOM AIR WELL, SPO2 WNL ON RA, NO RESPIRATORY DISTRESS NOTED AT THIS TIME. RESPIRATION UNLABORED. SR HR 80s ON TELE MONITOR. SIRIA PICC, BOTH PORTS FLUSHED WITH NS, PATENT AND INTACT. CDI DRESSING. SITE CLEAR. RLQ COLOSTOMY BAG IN PLACE, DRAINING LIQUID GREEN SEMIFORMED STOOL. JESÚS AV FISTULA NOTED WITH +BRUIT AND +THRILL, PLAN OF CARE DISCUSSED WITH THE PATIENT, VERBALIZES UNDERSTANDING. WOUND VAC C/O WOUND CARE NURSE TO RT HAND. CALL LIGHT WITHIN REACH. WILL CONTINUE TO CLOSELY MONITOR.
--- NOTE | 2018-10-13 07:54 | NUR ---
DEPUTY ADMINISTRATOR NOTES TRANSFER TO TELE PER .
[2018-10-13] MEDS: BLOOD SUGAR DIAGNOSTIC 1 EACH STRIP IN SCH ×4 (08:04→22:39)
--- NOTE | 2018-10-13 08:20 | NUR ---
DATA COLLECTION SPECIALIST NOTES ACCUCHECK. BS 110 MG/DL. NO INSULIN COVERAGE AT THIS TIME. WOUND VAC IN PLACE PER YI AZEVEDO WOUND CARE NURSE.
[2018-10-13] MEDS: Magnesium 1GM/D5W 100ML PREMIX 100 ML IV SCH ×2 (09:03→10:05)
[2018-10-13] MEDS: DULOXETINE HCL 30 MG CAPSULE.DR PO SCH ×2 (09:04→22:49)
[2018-10-13] MEDS: GABAPENTIN 100 MG CAPSULE PO SCH ×3 (09:04→16:45)
[2018-10-13] MEDS: PREGABALIN 100 MG CAPSULE PO SCH ×2 (09:04→16:45)
[2018-10-13] MEDS: HYDROGEL DRESSING 90 GM TUBE TP SCH ×2 (09:04→22:52)
[2018-10-13] MEDS: SEVELAMER CARBONATE 800 MG TABLET PO SCH ×3 (09:04→17:00)
[2018-10-13] MEDS: FERROUS SULFATE (325 MG) 325 MG/TAB TABLET PO SCH ×2 (09:04→16:45)
--- NOTE | 2018-10-13 09:18 | NUR ---
WOUND CARE: PT SEEN FOR [employer] VAC APPLICATION TO RT DORSAL HAND WOUND. ORDERS RECEIVED FROM DR WONG. RT HAND WOUND CLEANSED WITH NS, PATTED DRY, THEN SKIN PREP/VAC DRAPE TO PERIWOUND AREAS AND FINGER WEBS, OIL EMULSION DRESSING TO WOUND, COVERED WITH WHITE VAC FOAM, THEN BLACK VAC FOAM OVER WHITE FOAM. VAC SETTING 125mmHg CONTINUOUS SETTING. PT TOLERATED WELL, KERLIX AND BURN NET PLACED FOR PROTECTION. NEXT VAC DRESSING CHANGE PLANNED FOR MONDAY 10/16. Addendum: 10/13/18 at 0923 by YI AZEVEDO WNDNU Amended: Links added.
--- NOTE | 2018-10-13 09:30 | NUR ---
CHIEF ENGINEER WATERWORKS NOTES DUE MEDS GIVEN
[2018-10-13] MEDS: CLOTRIMAZOLE/BETAMETASONE DIPROPIONATE 15 GM TUBE TP SCH ×2 (09:44→16:46)
[2018-10-13] MEDS ORDERED: VANCOMYCIN 500 MG in IV D5W 100 ML IV PRN (10:30)
[2018-10-13] MEDS ORDERED: FEE PK DOSING 1 MIN EA MC ONE (10:32)
[2018-10-13] MEDS ORDERED: Magnesium 1GM/D5W 100ML PREMIX 100 ML IV SCH (11:30)
[2018-10-13] MEDS: CEFTRIAXONE 1 G in IV D5W 50 ML IV SCH (11:36)
[2018-10-13] MEDS ORDERED: VANCOMYCIN 1 GM in IV D5W 250 ML IV ONE (12:00)
--- NOTE | 2018-10-13 12:00 | NUR ---
DENTAL PATIENT COORDINATOR NOTES HD NURSE AT BEDSIDE. ACCUCHECK - BS 299 MG/DL. 12 UNITS HUM R GIVEN PER SS. ILEOSTOMY BAG CHANGED TO 2 PIECES UNIT.
[2018-10-13] MEDS: INSULIN REGULAR, HUMAN 100 UNIT/ML 3 ML VIAL SQ PRN ×2 (12:02→16:59)
--- NOTE | 2018-10-13 13:16 | NUR ---
TIRE REPAIRER VAC THERAPY ORDERS CLARIFIED WITH NOA LIGHT. SEE VAC THERAPY ORDERS.
--- NOTE | 2018-10-13 14:48 | NUR ---
CLIENT SOLUTIONS DIRECTOR NOTES HD COMPLETED. CLEANSING ONLY. VANCOMYCIN 500 MG PRN ON HD NOT GIVEN TODAY. WILL START TOMORROW PER [facility]. WILL GIVE VANCOMYCIN 1 GM IV ONCE POST DIALYSIS.
--- NOTE | 2018-10-13 16:54 | NUR ---
MARKETING SENIOR RECRUITER NOTES ACCUCHECK - BS 166 MG/DL. 4 UNITS HUM R GIVEN PER SS.
--- NOTE | 2018-10-13 17:50 | NUR ---
HEALTH CONSULTANT NOTES PATIENT TRANSFERRED TO 3 RM 325-1. ALL BELONGINGS SENT WITH PATIENTS. IN STABLE CONDITION. NO DISTRESS, NO PAIN. SIRIA PICC LINE IN PLACE. FLUSHES WELL, SITE CLEAR. WOUND VAC IN PLACE TO RIGHT HAND, INTACT DRESSING 0 DRAINAGE. WITH [address]OM[address] BAG IN PLACE TOTAL OUTPUT OF 800 ML GREENISH SEMIFORMED STOOL. ALL NEDS MET AT THIS TIME. REPORT GIVEN TO VENKAT GRAVES FOR SADIA.
--- NOTE | 2018-10-13 17:57 | NUR ---
RN NOTE PT TRANSFERED DOWN FROM ICU TO TELE AT THIS TIME, BROUGHT DOWN BY BED, A/O X4 BREATHING EVEN AND UNLABORED ON RA, NO S/S OF ANY DISTRESS OR PAIN NOTED AT THIS TIME, PICC LINE IS PATENT AND INTACT, NOTED TO HAVE JESÚS AV FISTULA, PT RECEIVED HD TODAY CLEANSING ONLY, NOTED TO HAVE RUQ ILEOSTOMY WITH BROWNISH BLACK SOFT STOOL, WOUND VAC NOTED ON RIGHT HAND, VS ARE: BP 149/82, PULSE 84, RR 19, TEMP 97.6, AND O2 SAT OF 100% ON RA, LAST BLOOD SUGAR WAS NOTED TO BE 166 WITH 4UNITS GIVEN, PLACED ON TELE MONITOR SR IN THE 80'S, SAFETY PRECAUTIONS IN PLACE, CALL LIGHT WITHIN REACH, WILL MONITOR ACCORDINGLY
--- NOTE | 2018-10-13 18:31 | NUR ---
RN CLOSING NOTE PT IN BED AT LOWEST AND LOCKED POSITION WITH SIDE RAILS UP X2, A/O X4 BREATHING AND UNLABORED ON RA, NO CURRENT COMPLAINT OF PAIN OR DISTRESS NOTED AT THIS, PICC LINE IS PATENT AND INTACT, ILEOSTOMY BAG DRAINED, WOUND VAC IN PLACE, SAFETY PRECAUTION IN PLACE, CALL LIGHT WITHIN REACH, ALL NEEDS ATTENDED TO, WILL ENDORSE TO NIGHT RN FOR SADIA.
--- NOTE | 2018-10-13 20:04 | NUR ---
MS/TELE/RN PATIENT C/O PAIN 08/31 RT. HAND, MEDICATED WITH NORCO 1 TAB PO ORDERED. ENDORSED TO MARY LEUNG, FOR CONTINUITY OF CARE.
--- NOTE | 2018-10-13 20:15 | NUR ---
INTEGRATION ANALYST NOTES RECEIVED PATIENT AWAKE, ALERT ORIENTED X4, NO SIGNS OF ACUTE CARDIAC OR RESPIRATORY DISTRESS NOTED, TELE MONITOR READS SINUS 78, IV ACCESS INTACT AND PATENT, ILEOSTOMY BAG SECURED AND INTACT, SAFETY MEASURES IN PLACE, ALL NEEDS ATTENDED, WILL CONTINUE TO MONITOR ACCORDINGLY.
[2018-10-13] MEDS: *INSULIN REGULAR(HUMULIN R)HUM 100 UNIT/ML VIAL SQ PRN (23:25)
[2018-10-14] VITALS (8 sets, daily range): BP systolic 110–157; BP diastolic 55–85
[2018-10-14] MEDS: HYDROCODONE/APAP 5/325MG 1 EACH TABLET PO PRN ×3 (02:51→21:00)
--- NOTE | 2018-10-14 02:51 | NUR ---
DIRECTOR GLOBAL DEVELOPMENT NOTES PATIENT COMPLAINED OF RIGHT HAND PAIN RADIATING THROUGHOUT HIS BODY, NORCO 5-325MG TAB GIVEN PER MD ORDER PRN FOR PAIN, NON PHARMACOLOGICAL MANAGEMENT ENCOURAGED PRIOR TO GIVING MEDICATION. ALL NEEDS ATTENDED, WILL CONTINUE TO MONITOR.
--- NOTE | 2018-10-14 06:04 | NUR ---
RN NOTES ALL NEEDS ATTENDED AND MET ABLE TO REST AND SLEPT AT INTERVALS, ILEOSTOMY BAG CHANGED 5X, KEPT SECURED AND INTACT, AL LABS DRAWN, WILL ENDORSE TO AM NURSE FOR CONTINUITY OF CARE. DENIES ANY PAIN AT THIS TIME. KEPT CLEAN DRY AND COMFORTABLE. SAFETY MEASURES IN PLACED.
[2018-10-14 06:47] LABS: POTASSIUM 5.6 mmol/L (3.5-5.1)
[2018-10-14] MEDS: BLOOD SUGAR DIAGNOSTIC 1 EACH STRIP IN SCH ×4 (07:48→22:02)
--- NOTE | 2018-10-14 08:00 | NUR ---
DEPUTY SHERIFF GENERALIST/BAILIFF AM NOTES RECEIVED PATIENT AWAKE, ALERT ORIENTED X4, NO SIGNS OF ACUTE CARDIAC OR RESPIRATORY DISTRESS NOTED, TELE MONITOR READS SINUS 77, IV ACCESS INTACT AND PATENT, ILEOSTOMY BAG SECURED AND INTACT, SAFETY MEASURES IN PLACE, NEEDS ATTENDED, WILL CONTINUE TO MONITOR ACCORDINGLY.CALL LIGHT WITHIN REACH.
[2018-10-14] MEDS: SEVELAMER CARBONATE 800 MG TABLET PO SCH ×3 (08:13→17:20)
[2018-10-14] MEDS: FERROUS SULFATE (325 MG) 325 MG/TAB TABLET PO SCH ×2 (09:07→17:00)
[2018-10-14] MEDS: PREGABALIN 100 MG CAPSULE PO SCH ×2 (09:07→16:59)
[2018-10-14] MEDS: GABAPENTIN 100 MG CAPSULE PO SCH ×3 (09:07→17:00)
[2018-10-14] MEDS: DULOXETINE HCL 30 MG CAPSULE.DR PO SCH ×2 (09:07→20:48)
[2018-10-14] MEDS: CLOTRIMAZOLE/BETAMETASONE DIPROPIONATE 15 GM TUBE TP SCH ×2 (09:22→17:16)
[2018-10-14] MEDS: HYDROGEL DRESSING 90 GM TUBE TP SCH ×2 (09:22→21:00)
--- NOTE | 2018-10-14 09:30 | NUR ---
CHANGED ILEOSTOMY BAG WITH 250 ML YELLOW GREEN FECES.KEPT CLEAN AND DRY.PT TOLERATED WELL.
--- NOTE | 2018-10-14 09:42 | NUR ---
WOUND CARE CONSULT WOUND CARE RECEIVED CONSULT FOR RIGHT HIP AND GROIN REDNESS AND EXCORIATION. WOUND CARE WILL DEFER CONSULT AND TREATMENT PLANS TO PLASTIC SURGICAL TEAM WHO ARE CURRENTLY FOLLOWING THIS PATIENT FOR HIS WOUNDS. GENERAL SURGEON ALSO FOLLOWING FOR ILEOSTOMY. PATIENT WITH CURRENT JOSE AT 14, ALL PRESSURE ULCER PREVENTION MEASURES ARE NOTED TO BE IN PLACE. WOUND CARE WILL CONTINUE TO PERFORM WOUND VAC DRESSING CHANGES ORDERED.
[2018-10-14] MEDS: CEFTRIAXONE 1 G in IV D5W 50 ML IV SCH (11:46)
[2018-10-14] MEDS: INSULIN REGULAR, HUMAN 100 UNIT/ML 3 ML VIAL SQ PRN (12:09)
[2018-10-14] MEDS ORDERED: FEE PK DOSING 1 MIN EA MC ONE (16:24)
[2018-10-14] MEDS ORDERED: TOBRAMYCIN 120 MG in IV D5W 50 ML IV ONE (17:00)
[2018-10-14] MEDS: LACTOBACILLUS RHAMNOSUS GG 1 EACH CAP.SPRINK PO SCH (17:00)
--- NOTE | 2018-10-14 17:30 | NUR ---
PT HAS ONGOING HEMODIALYSIS PROCEDURE AT THIS TIME.WILL ADMINISTER TOBRAMYCIN IV POST HD PROCEDURE.CHANGED ILEOSTOMY BAG OFTEN.SURROUNDING ILEOSTOMY SITE HAS NO S/S OF INFECTION-PINKISH RED IN COLOR BUT SKIN IS INTACT. KEPT CLEAN AND DRY.PT TOLERATED WELL AND DENIES DISCOMFORT ON THE ILEOSTOMY SITE.
--- NOTE | 2018-10-14 19:58 | NUR ---
MS/TELE/RN RECEIVE PATIENT AWAKE, ALERT, ORIENTED, COMFORTABLE, NO C/O PAIN, NO DISTRESS NOTED, HD IN PROGRESS, WILL MONITOR.
--- NOTE | 2018-10-14 20:40 | NUR ---
MS/TELE/RN HD DONE, PATIENT IS STABLE, NO CHANGE IN CONDITION. WILL CONTINUE TO MONITOR.
[2018-10-14] MEDS: *INSULIN REGULAR(HUMULIN R)HUM 100 UNIT/ML VIAL SQ PRN (21:02)
--- NOTE | 2018-10-14 21:53 | NUR ---
MS/TELE/RN HYDROGEL NOT ADMINISTERED, WOUND HAS WOUND VAC ALREADY.
[2018-10-15] MEDS: HYDROCODONE/APAP 5/325MG 1 EACH TABLET PO PRN (00:32)
[2018-10-15] MEDS ORDERED: TOBRAMYCIN 120 MG in IV D5W 50 ML IV PRN (06:00)
--- NOTE | 2018-10-15 06:20 | NUR ---
MS/TELE/RN PATIENT IS AWAKE AT THIS TIME, COMFORTABLE, NO DISTRESS NOTED, WOUND VAC WORKING WELL, ALL NEEDS ATTENDED AT THIS TIME, WILL CONTINUE TO MONITOR.
--- NOTE | 2018-10-15 06:29 | NUR ---
MS/TELE/RN ACCU CHECK BLOOD SUGAR 137, REFUSED THE INSULIN COVERAGE AT THIS TIME, HE WANTS TO TAKE IT RIGHT BEFORE BREAKFAST. WILL ENDORSE. WILL CONTINUE TO MONITOR.
[2018-10-15] MEDS: BLOOD SUGAR DIAGNOSTIC 1 EACH STRIP IN SCH ×3 (06:38→16:58)
[2018-10-15 06:44] LABS: CALCIUM, SERUM 8.9 mg/dL (8.5-10.1); CREATININE 5.5 mg/dL (0.6-1.3); POTASSIUM 5.2 mmol/L (3.5-5.1)
[2018-10-15 08:00] VITALS: BP 133/95
--- NOTE | 2018-10-15 08:00 | NUR ---
MS MARY AM NOTES RECEIVED PATIENT AWAKE, ALERT ORIENTED X4, NO SIGNS OF ACUTE CARDIAC OR RESPIRATORY DISTRESS NOTED, IV ACCESS INTACT AND PATENT, ILEOSTOMY BAG SECURED AND INTACT, WITH WOUND VAC TO RT ARM.SAFETY MEASURES IN PLACE, NEEDS ATTENDED, WILL CONTINUE TO MONITOR ACCORDINGLY.CALL LIGHT WITHIN REACH.
[2018-10-15] MEDS: SEVELAMER CARBONATE 800 MG TABLET PO SCH ×3 (08:25→17:08)
[2018-10-15] MEDS: DULOXETINE HCL 30 MG CAPSULE.DR PO SCH (08:25)
[2018-10-15] MEDS: FERROUS SULFATE (325 MG) 325 MG/TAB TABLET PO SCH ×2 (08:25→17:09)
[2018-10-15] MEDS: GABAPENTIN 100 MG CAPSULE PO SCH ×3 (08:25→17:08)
[2018-10-15] MEDS: PREGABALIN 100 MG CAPSULE PO SCH ×2 (08:25→17:09)
[2018-10-15] MEDS: LACTOBACILLUS RHAMNOSUS GG 1 EACH CAP.SPRINK PO SCH ×2 (08:25→17:08)
[2018-10-15] MEDS: CLOTRIMAZOLE/BETAMETASONE DIPROPIONATE 15 GM TUBE TP SCH ×2 (08:26→17:28)
[2018-10-15] MEDS: HYDROGEL DRESSING 90 GM TUBE TP SCH (08:26)
[2018-10-15] MEDS: INSULIN REGULAR, HUMAN 100 UNIT/ML 3 ML VIAL SQ PRN (09:21)
--- NOTE | 2018-10-15 11:30 | NUR ---
Wound vac removed - new dressing applied by NOA Lyles -no bleeding noted and pt tolerated well.Awaiting for HD procedure prior to DC. Pt to be d/c today. Needs to follow up with us at outpatient clinic -[facility] -we will discuss with SNF and coordinate with studio operations engineer in charge when we give report.
[2018-10-15] MEDS ORDERED: SODIUM POLYSTYRENE SULFONATE 15 G/60 ML BOTTLE PO ONE (13:30)
--- NOTE | 2018-10-15 15:50 | NUR ---
CALLED IN REPORT TO MARY DYE OF [facility] AND FAXED WOUND VAC THERAPY ORDER TO THEM AND CONFIRMED THAT THEY RECEIVED IT.FAX NO .SPOKE TO RVGUME GRUBBER AND STATED THAT SHE ALREADY SPOKE TO NEHEMIAS GAXIOLA OF [facility] AND ORDERED THE WOUND VAC FOR THE PT.
[2018-10-15 16:00] VITALS: BP 130/90
--- NOTE | 2018-10-15 16:00 | NUR ---
CALLED MARY DYE OF [facility] CONFIRMING TO FOLLOW UP WITH DR JOSE IN [place] IN 5 DAYS FOR WOUND F/U.
--- NOTE | 2018-10-15 16:07 | NUR ---
CESAR OF LAB CALLED AND REPORTED THAT PT'S TOBRAMYCIN LEVEL IS 2.3 WHEREIN THE NORMAL RANGE SHOULD BE 0.0 - 2.0.
--- NOTE | 2018-10-15 19:01 | NUR ---
DISCHARGED PT TO [facility] WITH STABLE V/S.ILEOSTOMY BAG CHANGED FOR THE 7TH TIME WITH 1000ML OUTPUT TOTAL DURING THE SHIFT.DENIES ANY PAIN OR DISTRESS.CENTRAL LINE DRESSING CHANGE DONE TO SIRIA PICC LINE.
== END 2018-10-15 19:00 | DRG 981 ==
LOC: ER 03:30 → TELE1 05:09 → TELE-TD 05:57 → ICU 07:19 → MED 10-13 18:01 → TELE 10-13 18:12 → MED 10-14 12:49
PROVIDERS: ADMIT Internal Medicine; ATTEND Internal Medicine
PROC: 0LB70ZZ Excision of Right Hand Tendon, Open Approach (ICD-10-PCS; principal; 2018-10-12)
PROC: 5A1D70Z Performance of Urinary Filtration, Intermittent, Less than 6 Hours Per Day (ICD-10-PCS; principal; 2018-10-12)
DX: I47.2 Ventricular tachycardia (principal); N18.6 End stage renal disease; I12.0 Hypertensive chronic kidney disease with stage 5 chronic kidney disease or end stage renal disease; E87.1 Hypo-osmolality and hyponatremia; L03.113 Cellulitis of right upper limb; E87.5 Hyperkalemia; Z99.2 Dependence on renal dialysis; Z93.2 Ileostomy status; E11.22 Type 2 diabetes mellitus with diabetic chronic kidney disease; D63.1 Anemia in chronic kidney disease; E83.39 Other disorders of phosphorus metabolism; E83.52 Hypercalcemia; J44.9 Chronic obstructive pulmonary disease, unspecified; K21.9 Gastro-esophageal reflux disease without esophagitis; L30.4 Erythema intertrigo; F17.210 Nicotine dependence, cigarettes, uncomplicated; E88.09 Other disorders of plasma-protein metabolism, not elsewhere classified; E11.42 Type 2 diabetes mellitus with diabetic polyneuropathy; M10.9 Gout, unspecified; Z79.4 Long term (current) use of insulin; E11.65 Type 2 diabetes mellitus with hyperglycemia; E83.9 Disorder of mineral metabolism, unspecified; S61.401A Unspecified open wound of right hand, initial encounter; X58.XXXA Exposure to other specified factors, initial encounter; Y93.9 Activity, unspecified; Y92.129 Unspecified place in nursing home as the place of occurrence of the external cause; S20.319A Abrasion of unspecified front wall of thorax, initial encounter; E83.42 Hypomagnesemia; E87.8 Other disorders of electrolyte and fluid balance, not elsewhere classified
CPT/HCPCS: 36415; 71045-TC; 80048-TC; 80202-TC; 82962-TC; 83735-TC; 84100-TC; 84132-TC; 84484-TC; 85025-TC; 86850-TC; 87070-TC; 87081-TC; 87186-TC; 90935-TC; 93307-TC; 94799-TC; A4216; A4362; A4364; A6248; A6403; G0378; J0282; J0610; J0696; J1815; J2997; J3260; J3370; J3475; J3490; J7030; J7060

== ENCOUNTER 2018-11-04 13:47 | Inpatient (IN) | payer BC, OTHER ==
[~2018-11-04] VITALS: Ht 175.3 cm; Wt 72.6 kg
--- NOTE | 2018-11-04 14:00 | NUR ---
Pt recieved from SNF due to hyperkalemia (8.5 reported)
[2018-11-04 14:30] LABS: BASOPHILS # (AUTO) 0.1 /CMM (0.0-0.2); BASOPHILS % (AUTO) 1.2 % (0.0-2.0); HEMATOCRIT 37 % (39-51); HEMOGLOBIN 12.1 g/dL (13.5-17.5); LYMPHOCYTES # (AUTO) 1.8 /CMM (0.8-4.8); LYMPHOCYTES % (AUTO) 29.5 % (20.0-44.0); MEAN CORPUSCULAR HGB CONC 33 g/dl (31.0-36.0); MEAN CORPUSCULAR VOLUME 97 fL (80-96); MONOCYTES # (AUTO) 0.6 /CMM (0.1-1.30); MONOCYTES % (AUTO) 9.7 % (2.0-12.0); NEUTROPHILS # (AUTO) 3.2 /CMM (1.8-8.9); NEUTROPHILS % (AUTO) 53.6 % (43.0-81.0); PLATELET COUNT (AUTO) 108 /CMM (150-450); RED BLOOD CELL COUNT(AUTO) 3.85 MIL/uL (4.5-6.0)
[2018-11-04 14:41] LABS: CALCIUM, SERUM 9.5 mg/dL (8.5-10.1)
[2018-11-04 14:46] LABS: CREATININE 11.8 mg/dL (0.6-1.3); POTASSIUM 7.8 mmol/L (3.5-5.1)
--- NOTE | 2018-11-04 14:55 | NUR ---
FORTUNATO CARDENAS, NEPHRO
[2018-11-04] MEDS ORDERED: SODIUM POLYSTYRENE SULFONATE 15 G/60 ML BOTTLE ONE (14:59)
[2018-11-04] MEDS ORDERED: SODIUM BICARBONATE SYR 50 MEQ/50 ML DISP.SYRIN ONE (14:59)
[2018-11-04] MEDS ORDERED: INSULIN REGULAR, HUMAN 100 UNIT/ML 10 ML VIAL ONE (14:59)
[2018-11-04] MEDS ORDERED: Calcium Gluconate 0.465 MEQ/ML VIAL IV ONE (15:00)
[2018-11-04] MEDS ORDERED: IV NS 0.9% 500 ML BAG IV ONE (15:00)
[2018-11-04] MEDS ORDERED: Calcium Gluconate 1GM/10ML 4.65 MEQ in IV NS 0.9% 50 ML IV ONE (15:00)
[2018-11-04] MEDS ORDERED: SODIUM POLYSTYRENE SULFONATE 15 G/60 ML BOTTLE PO ONE (15:00)
[2018-11-04] MEDS ORDERED: SODIUM BICARBONATE SYR 50 MEQ/50 ML DISP.SYRIN IV ONE (15:00)
[2018-11-04] MEDS ORDERED: INSULIN LISPRO/ASPART 100 UNIT/ML CARTRIDGE SQ ONE (15:00)
[2018-11-04] MEDS ORDERED: FERR325T23 PO (16:00)
[2018-11-04] MEDS ORDERED: MULT-447 PO (16:00)
[2018-11-04] MEDS ORDERED: LACT1CAP57 PO (16:00)
[2018-11-04] MEDS ORDERED: ACET325T53 PO ×2 (16:00)
[2018-11-04] MEDS ORDERED: LOPE2CAP PO (16:00)
[2018-11-04] MEDS ORDERED: ZINC220C6 PO (16:00)
[2018-11-04] MEDS ORDERED: FOLI0.8T2 PO (16:00)
--- NOTE | 2018-11-04 16:06 | NUR ---
Amarjit Gould at bedside
--- NOTE | 2018-11-04 16:13 | NUR ---
Report given to Rui smyth rn for pete
[2018-11-04] MEDS ORDERED: SIME120L PO (16:23)
[2018-11-04] MEDS ORDERED: MAGN400O21 PO (16:23)
[2018-11-04] MEDS ORDERED: INSU100V3 SQ (16:23)
[2018-11-04] MEDS ORDERED: MAGNESIUM HYDROXIDE 30 ML UDC PO PRN (16:30)
[2018-11-04] MEDS ORDERED: ONDANSETRON HCL/PF 4 MG/2 ML VIAL IVP PRN (16:30)
[2018-11-04] MEDS ORDERED: ACETAMINOPHEN 325 MG TABLET PO PRN (16:30)
[2018-11-04] MEDS ORDERED: DEXTROSE 50%-WATER 50 ML DISP.SYRIN IV PRN (16:30)
[2018-11-04] MEDS ORDERED: MAG HYDROX/AL HYDROX/SIMETH 30 ML UDC PO PRN (16:30)
[2018-11-04] MEDS ORDERED: Z GUARD REMEDY 2 OZ OINT TP PRN (16:30)
--- NOTE | 2018-11-04 16:42 | NUR ---
Transfered pt to [facility] accompanied by RN and EMT. Report given to Rui for pete
[2018-11-04 16:45] VITALS: BP 122/53
--- NOTE | 2018-11-04 17:00 | NUR ---
TAKE AWAY ATTENDANT RECEIVING NOTE PATIENT RECEIVED FROM [facility] ER. PATIENT ADMITTED FOR HYPERKALEMIA. EMERGENT DIALYSIS SCHEDULED FOR TODAY. PATIENT A/O X 4, NO SOB OR ACUTE DISTRESS. JESÚS FISTUAL INTACT., SIRIA PICC LINE INTACT AND PATENT. NO PAIN REPORTED. COLOSTOMY BAG DRAINED. BLOOD SUGAR CHECKED AND FOUND AT 61. PATIENT ATE DINNER AND RESTED COMFORTABLY. CARE ENDORSED TO DIRECTOR OF PROGRAM MANAGEMENT RN.
[2018-11-04] MEDS: BLOOD SUGAR DIAGNOSTIC 1 EACH STRIP IN SCH ×2 (17:22→22:38)
--- NOTE | 2018-11-04 19:15 | NUR ---
KIM RN OPENING NOTES PATIENT IN BED, SLEEPING, BUT EASY TO AROUSE. PATIENT A/OX4, ABLE TO MAKE NEEDS KNOWN. ON TELE MONITOR SINUS RHYTHM WITH OCCASIONAL PVS, PACS, AND BBB WITH HR 70S. ON ROOM AIR, TOLERATING WELL, NO SOB OR RESPIRATORY DISTRESS NOTED. PER AM RN, EMERGENT DIALYSIS SCHEDULED FOR TODAY. IV SITE SIRIA PICC LINE, INTACT AND PATENT, SITE C/D/I. JESÚS FISTULA NOTED, C/D/I. DENIES ANY PAIN. COLOSTOMY BAG WITH LEAKAGE NOTED, WILL CHANGE BAG NEEDED. SAFETY MEASURES MAINTAINED; CALL LIGHT WITHIN REACH, SIDE RAILS UP X2, BED LOCKED AND IN LOWEST POSITION. WILL CONT TO MONITOR PATIENT.
[2018-11-04 20:00] VITALS: BP 131/30
--- NOTE | 2018-11-04 20:05 | NUR ---
KIM RN NOTES CHECKED PATIENT CHART FOR WOUND PICTURES. PATIENT NOTED TO HAVE WOUND DRESSING ON RIGHT HAND BUT NO PICTURES ON CHART. PATIENT REFUSED TO REMOVE DRESSING AND TAKE PICTURES DESPITE DISCUSSION OF PROS AND CONS. WILL CONT TO MONITOR.
--- NOTE | 2018-11-04 20:20 | NUR ---
KIM RN NOTES PATIENT A/OX4, SIGNED HEMODIALYSIS CONSENT. HD AT BEDSIDE. WILL CONT TO MONITOR.
[2018-11-05] VITALS: BP 95/40
[2018-11-05] MEDS: INSULIN REGULAR, HUMAN 100 UNIT/ML 3 ML VIAL SQ PRN ×5 (00:38→22:01)
[2018-11-05 04:00] VITALS: BP 121/63
--- NOTE | 2018-11-05 05:34 | NUR ---
RESP NOTES pt refused ekg. no distress noted. RN aware. will cont to monitor
--- NOTE | 2018-11-05 07:05 | NUR ---
KIM RN CLOSING NOTES PATIENT IN BED, SLEEPING, BUT EASY TO AROUSE. PATIENT A/OX4, ABLE TO MAKE NEEDS KNOWN. ON TELE MONITOR SINUS RHYTHM WITH OCCASIONAL PVS, PACS, AND BBB WITH HR 80S. ON ROOM AIR, TOLERATING WELL, NO SOB OR RESPIRATORY OR CARDIAC DISTRESS NOTED. IV SITE SIRIA PICC LINE, INTACT AND PATENT, SITE C/D/I. JESÚS FISTULA NOTED, C/D/I. DENIES ANY PAIN. COLOSTOMY BAG CHANGED 4 TIMES THROUGHOUT SHIFT D/T LEAKAGE. NO ACUTE CHANGES THROUGHOUT SHIFT. WOUND CONSULT PENDING. SAFETY MEASURES MAINTAINED; CALL LIGHT WITHIN REACH, SIDE RAILS UP X2, BED LOCKED AND IN LOWEST POSITION. ENDORSED TO AM RN FOR SADIA.
[2018-11-05 07:36] LABS: BASOPHILS % (AUTO) 0.9 % (0.0-2.0); EOSINOPHILS % (AUTO) 3.9 % (0.0-6.0); HEMATOCRIT 35 % (39-51); HEMOGLOBIN 11.7 g/dL (13.5-17.5); LYMPHOCYTES # (AUTO) 1.3 /CMM (0.8-4.8); LYMPHOCYTES % (AUTO) 28.8 % (20.0-44.0); MEAN CORPUSCULAR HGB CONC 33 g/dl (31.0-36.0); MEAN CORPUSCULAR VOLUME 94 fL (80-96); MONOCYTES # (AUTO) 0.4 /CMM (0.1-1.30); MONOCYTES % (AUTO) 9.4 % (2.0-12.0); NEUTROPHILS # (AUTO) 2.5 /CMM (1.8-8.9); PLATELET COUNT (AUTO) 114 /CMM (150-450); RED BLOOD CELL COUNT(AUTO) 3.78 MIL/uL (4.5-6.0); WHITE BLOOD COUNT (AUTO) 4.4 K/uL (4.3-11.0)
[2018-11-05 07:38] LABS: CALCIUM, SERUM 8.9 mg/dL (8.5-10.1); MAGNESIUM 1.7 mg/dL (1.8-2.4); PHOSPHORUS 6.6 mg/dL (2.5-4.9); POTASSIUM 5.4 mmol/L (3.5-5.1)
[2018-11-05 07:40] LABS: CREATININE 8.4 mg/dL (0.6-1.3)
[2018-11-05 07:44] LABS: THYROID STIMULATING HORMONE 1.813 uIU/mL (0.358-3.74)
[2018-11-05 08:00] VITALS: BP 93/72
[2018-11-05] MEDS: BLOOD SUGAR DIAGNOSTIC 1 EACH STRIP IN SCH ×4 (08:18→22:00)
--- NOTE | 2018-11-05 10:27 | NUR ---
ms rn notes pt tolerated hd procedure. no fluid removed. will cont to monitor.
[2018-11-05] MEDS: HYDROGEL DRESSING 90 GM TUBE TP SCH (13:05)
[2018-11-05 16:00] VITALS: BP 103/48
--- NOTE | 2018-11-05 16:00 | NUR ---
ms rn notes devyn baird, aware of mag levels. wants to leave it that way at this time. will endorse to next nurse to follow up tomorrow.
--- NOTE | 2018-11-05 16:24 | NUR ---
Patient is readmitted in less than one month. He resides at [facility] [phone]. He requires assistance with adl's.Currently on bedhold with plan to discharge back to SNF Addendum: 11/05/18 at 1624 by LUPE GREGORY RN Amended: Links added.
--- NOTE | 2018-11-05 19:00 | NUR ---
MS RN END OF SHIFT NOTES PT IN BED, ASLEEP. VS STABLE. PT TOLERATED DEBRIDEMENT OF HAND WELL. NO S/SX OF DISTRESS. ENDORSED TO PM NURSE FOR SADIA.
--- NOTE | 2018-11-05 19:25 | NUR ---
MS/RN NOTES RECEIVED PT. LYING IN BED. PT. IS AWAKE, ALERT AND ORIENTED X3. BREATHING EVEN AND UNLABORED ON ROOM AIR. NO SOB, RESPIRATORY DISTRESS OR COMPLAINTS OF PAIN NOTED AT THIS TIME. PT. WITH RIGHT UPPER ARM PICC LINE PRESENT, PATENT AND INTACT. PT. WITH LEFT ARM AV FISTULA PRESENT AND INTACT. PT. WITH COLOSTOMY PRESENT AND INTACT. SAFETY AND ASPIRATION PRECAUTIONS IMPLEMENTED AND IN PLACE. BED LOCKED AND IN LOWEST POSITION, SIDE RAILS UP X2, BED ALARM ON, CALL LIGHT WITHIN REACH, WILL CONTINUE TO MONITOR.
[2018-11-05 20:00] VITALS: BP 101/45
--- NOTE | 2018-11-05 21:38 | NUR ---
Patient is readmitted in less than one month. He resides at [facility] [phone]. He requires assistance with adl's. Receives hemodialysis every MWF 4PM @ [facility]. Currently on bedhold with plan to discharge back to SNF Addendum: 11/05/18 at 2139 by LUPE GREGORY RN Amended: Links added.
[2018-11-06 04:00] VITALS: BP 113/58
[2018-11-06] MEDS: HYDROCODONE/APAP 5/325MG 1 EACH TABLET PO PRN (05:40)
[2018-11-06 06:26] LABS: BASOPHILS # (AUTO) 0.1 /CMM (0.0-0.2); BASOPHILS % (AUTO) 1.5 % (0.0-2.0); EOSINOPHILS % (AUTO) 6.4 % (0.0-6.0); HEMATOCRIT 37 % (39-51); HEMOGLOBIN 12.2 g/dL (13.5-17.5); LYMPHOCYTES # (AUTO) 1.7 /CMM (0.8-4.8); LYMPHOCYTES % (AUTO) 32.7 % (20.0-44.0); MEAN CORPUSCULAR HGB CONC 33 g/dl (31.0-36.0); MEAN CORPUSCULAR VOLUME 94 fL (80-96); MONOCYTES # (AUTO) 0.5 /CMM (0.1-1.30); MONOCYTES % (AUTO) 9.4 % (2.0-12.0); NEUTROPHILS # (AUTO) 2.6 /CMM (1.8-8.9); PLATELET COUNT (AUTO) 126 /CMM (150-450); RED BLOOD CELL COUNT(AUTO) 3.93 MIL/uL (4.5-6.0); WHITE BLOOD COUNT (AUTO) 5.3 K/uL (4.3-11.0)
--- NOTE | 2018-11-06 06:47 | NUR ---
MS/RN NOTES PT. IS LYING IN BED, AWAKE, ALERT AND ORIENTED X3. BREATHING EVEN AND UNLABORED ON ROOM AIR. NO SOB, RESPIRATORY DISTRESS OR COMPLAINTS OF PAIN NOTED AT THIS TIME. PT. WITH RIGHT UPPER ARM PICC LINE PRESENT, PATENT AND INTACT. PT. WITH LEFT ARM AV FISTULA PRESENT AND INTACT. PT. WITH COLOSTOMY PRESENT AND INTACT. ALL PT. NEEDS MET. SAFETY AND ASPIRATION PRECAUTIONS IMPLEMENTED AND IN PLACE. BED LOCKED AND IN LOWEST POSITION, SIDE RAILS UP X2, BED ALARM ON, CALL LIGHT WITHIN REACH, WILL ENDORSE TO DAYSHIFT NURSE FOR CONTINUITY OF CARE.
--- NOTE | 2018-11-06 07:05 | NUR ---
MS RN OPENING NOTES RECEIVED PT LYING ON BED.ALERT/ORIENTED X4.ON ROOM AIR,TOLERATING WELL.NO SOB AND ACUTE DISTRESS NOTED.COLOSTOMY BAG IS IS IN PLACE AND NOTED WITH SOFT-SOLID STOOL.CHANGED TO A NEW BAG.STOMA HAS MILD RED IN COLOR.LEFT ARM AV FISTULA NOTED AND RIGHT UPPER ARM PICC LINE,SL.SITE IS CLEAN,DRY AND INTACT.NO INFILTRATION NOTED.BED IS IN LOW POSITION AND LOCKED.CALL LIGHT IS WITHIN REACH.WILL CONTINUE TO MONITOR THE PT CLOSELY.
[2018-11-06 07:25] LABS: POTASSIUM 5.4 mmol/L (3.5-5.1)
[2018-11-06] MEDS: BLOOD SUGAR DIAGNOSTIC 1 EACH STRIP IN SCH ×4 (07:46→22:20)
[2018-11-06] MEDS: INSULIN REGULAR, HUMAN 100 UNIT/ML 3 ML VIAL SQ PRN ×4 (07:47→22:16)
[2018-11-06 08:00] VITALS: BP 112/60
[2018-11-06 08:32] LABS: CREATININE 8.3 mg/dL (0.6-1.3)
--- NOTE | 2018-11-06 11:23 | NUR ---
WOUND CARE CONSULT WOUND CARE RECEIVED CONSULT FOR WOUNDS. WOUND CARE WILL DEFER CONSULT AND TREATMENT PLANS TO PLASTIC SURGICAL TEAM WHO ARE CURRENTLY FOLLOWING THIS PATIENT. PATIENT WITH JOSE AT 17, ALL PRESSURE ULCER PREVENTION MEASURES ARE NOTED TO BE IN PLACE AT THIS TIME. WILL SEE PRN.
[2018-11-06] MEDS: HYDROGEL DRESSING 90 GM TUBE TP SCH (15:10)
[2018-11-06 16:00] VITALS: BP 119/64
[2018-11-06] MEDS: NYSTATIN TOP POWDER 15 GM BOTTLE TP SCH (18:44)
--- NOTE | 2018-11-06 19:05 | NUR ---
MS RN CLOSING NOTES PT IS SITTING ON THE BED.ON ROOM AIR,TOLERATING WELL.NO SOB AND ACUTE DISTRESS NOTED.IV LINE IS IN PLACE.COLOSTOMY BAG CHANGED AND IN PLACE.PT IS CLEAN AND DRY.NO SIGNIFICANT CHANGES NOTED IN THE SHIFT.ENDORSED TO PRINTER ASSISTANT RN FOR SADIA.
--- NOTE | 2018-11-06 19:30 | NUR ---
MS RN OPENING NOTES RECEIVED PT SITTING ON THE BED. ON ROOM AIR, TOLERATING WELL. NO SOB AND ACUTE DISTRESS NOTED. IV LINE IS IN PLACE, NO INFILTRATION NOTED. COLOSTOMY BAG IN PLACE. PT IS CLEAN AND DRY.WILL CONTINUE CARE
[2018-11-06 20:00] VITALS: BP 122/50
[2018-11-07] VITALS: BP 122/50
[2018-11-07 04:00] VITALS: BP 104/32
[2018-11-07 06:50] LABS: CALCIUM, SERUM 9.1 mg/dL (8.5-10.1); POTASSIUM 5.9 mmol/L (3.5-5.1)
--- NOTE | 2018-11-07 06:56 | NUR ---
MS RN CLOSING NOTES PT IS SITTING ON THE BED.ON ROOM AIR,TOLERATING WELL.NO SOB AND ACUTE DISTRESS NOTED.IV LINE IS IN PLACE, NO INFILTRATION NOTED.COLOSTOMY BAG CHANGED AND IN PLACE.PT IS CLEAN AND DRY.NO SIGNIFICANT CHANGES NOTED IN THE SHIFT.ENDORSED TO DAY SHIFT RN FOR SADIA.
--- NOTE | 2018-11-07 07:00 | NUR ---
MS RN OPENING NOTES RECEIVED PT LYING ON BED.ALERT/ORIENTED X4.ON ROOM AIR,TOLERATING WELL.NO SOB AND ACUTE DISTRESS NOTED.COLOSTOMY BAG IS IS IN PLACE AND NOTED WITH SOFT-SOLID STOOL.STOMA HAS MILD RED IN COLOR.LEFT ARM AV FISTULA NOTED AND RIGHT UPPER ARM PICC LINE,SL.SITE IS CLEAN,DRY AND INTACT.NO INFILTRATION NOTED.BED IS IN LOW POSITION AND LOCKED.CALL LIGHT IS WITHIN REACH.WILL CONTINUE TO MONITOR THE PT CLOSELY.
[2018-11-07 07:07] LABS: CREATININE 10.2 mg/dL (0.6-1.3)
[2018-11-07 08:00] VITALS: BP 114/34
[2018-11-07] MEDS: BLOOD SUGAR DIAGNOSTIC 1 EACH STRIP IN SCH ×4 (08:07→22:32)
[2018-11-07] MEDS: INSULIN REGULAR, HUMAN 100 UNIT/ML 3 ML VIAL SQ PRN ×2 (08:07→22:32)
[2018-11-07] MEDS: NYSTATIN TOP POWDER 15 GM BOTTLE TP SCH ×2 (12:57→17:44)
[2018-11-07] MEDS: HYDROGEL DRESSING 90 GM TUBE TP SCH (12:57)
--- NOTE | 2018-11-07 14:23 | NUR ---
MS RN NOTES PT DISCHARGE REPORT GIVEN TO MARY WHITEHEAD RESCUE WORKER IN [facility].
[2018-11-07 16:00] VITALS: BP 119/35
--- NOTE | 2018-11-07 17:55 | NUR ---
MS RN NOTES GUIDO,FLIGHT SUPERINTENDENT SAID TO HOLD THE DISCHARGE TODAY BECAUSE OF THE ISSUES OF INSURANCE.PT MADE AWARE.
--- NOTE | 2018-11-07 18:48 | NUR ---
MS RN CLOSING NOTES PT IS LYING ON BED.HOLD FOR DISCHARGE TODAY.HD HAS DONE,TOLERATING WELL.NO SIGNIFICANT CHANGES NOTED IN THE SHIFT.RESPIRATION IS EVEN AND NONLABORED.WILL ENDORSE TO PEST CONTROLLER RN FOR SADIA.
[2018-11-07 20:00] VITALS: BP 155/72
[2018-11-07] MEDS: HYDROCODONE/APAP 5/325MG 1 EACH TABLET PO PRN (23:46)
[2018-11-08] VITALS: BP 105/47
--- NOTE | 2018-11-08 06:49 | NUR ---
RN NOTES IN BED, SLEEPING WITH NO DISTRESS NOTED. BREATHING EVEN AND UNLABORED. ALERT AND ORIENTED. VERBALLY ABLE TO COMMUNICATE NEEDS. NO SIGNIFICANT CHANGE OF CONDITION. WILL ENDORSE TO NEXT SHIFT FOR CONTINUITY OF CARE
--- NOTE | 2018-11-08 07:45 | NUR ---
RN OPENING NOTES RECEIVED PATIENT RESTING IN BED COMFORTABLY. HE IS AOX4 AND AMBULATORY. HE IS ON RA AND SHOWS NO S/SX OF RESP DISTRESS OR SOB. PATIENT HAD HD YESTERDAY, NOTHING REMOVED. HE HAS A WOUND ON RIGHT HAND. HE HAS A SIRIA PICC LINE, ON RENAL STANDARD DIET. OSTOMY IN PLACE. SAFETY MEASURES HAVE BEEN IMPLEMENTED, CALL LIGHT WITHIN REACH, SIDE RIALS UP X2, BED IN LOWEST AND LOCKED POSITION, WILL CONTINUE TO MONITOR.
[2018-11-08 08:00] VITALS: BP 107/43
[2018-11-08] MEDS: BLOOD SUGAR DIAGNOSTIC 1 EACH STRIP IN SCH ×4 (08:03→22:23)
[2018-11-08] MEDS: INSULIN REGULAR, HUMAN 100 UNIT/ML 3 ML VIAL SQ PRN ×4 (08:07→22:31)
[2018-11-08] MEDS: HYDROCODONE/APAP 5/325MG 1 EACH TABLET PO PRN (08:10)
[2018-11-08] MEDS: HYDROGEL DRESSING 90 GM TUBE TP SCH (09:00)
[2018-11-08] MEDS: NYSTATIN TOP POWDER 15 GM BOTTLE TP SCH ×2 (09:54→17:33)
[2018-11-08 16:00] VITALS: BP 102/72
--- NOTE | 2018-11-08 19:19 | NUR ---
RN CLOSING NOTES PATIENT IS RESTING IN HIS ROOM COMFORTABLY, SHOWS NO S/SX OF DISTRESS OR SOB. HE IS AOX4, MALTESE SPEAKING 53 YO MALE. HE CAME IN FROM SNF FOR HYPERKALEMIA. HE IS ON RA, TOLERATING WELL. HE HAS NKA, AND IS AMBULATORY, HE HAS A COLOSTOMY ON R ABDOMEN. THE COLOSTOMY BAG HAD BEEN CHANGED MANY TIMES TODAY BECAUSE OF THE INABILITY TO STICK, SKIN SURROUNDING STOMA IS IRRITATED. HE IS ON A RENAL STANDARD DIET. HE HAS A FISTULA ON HIS LEFT ARM AND A SIRIA PICC. HE IS DIABETIC, ACHS. PATIENT IS TO BE DC ONCE CASE MANAGEMENT FINALIZES EVERYTHING. SAFETY MEASURES HAVE BEEN IMPLEMENTED, CALL LIGHT WITHIN REACH, BED IN LOWEST AND LOCKED POSITION, WILL ENDORSE TO REFRESH TECHNICIAN NURSE.
--- NOTE | 2018-11-08 19:50 | NUR ---
RN NOTES RECEIVED REPORT FROM DAYSHIFT MARY BURT. FOUND Pt AWAKE, RESTING IN BED. RESPIRATIONS EVEN AND UNLABORED. Pt IS A/OX4, VERBAL, ABLE TO MAKE NEEDS KNOWN. NO S/S OF ACUTE DISTRESS OR SOB NOTED. IV ACCESS ON SIRIA PICC LINE. AV FISTULA LOCATED ON JESÚS. LAST HD WAS Y ON 11/07/18. PER DAYSHIFT REPORT WAITING ON CM FOR PLACEMENT. SAFETY MEASURES IN PLACE. BED LOW, LOCKED, HOB ELEVATED, SIDE RAILS UP, CALL LIGHT AND BEDSIDE TABLE WTIHIN REACH. WILL CONTINUE TO MONITOR Pt's CONDITION AND SAFETY THROUGHOUT THE NIGHT.
--- NOTE | 2018-11-08 19:51 | NUR ---
PATIENT HAS BEEN ENDORSED TO NIGHTSHIFT NURSE
--- NOTE | 2018-11-08 22:12 | NUR ---
RN NOTES HS BG 198. ADMINISTERED 3UN OF INSULIN PER SLIDING SCALE.
--- NOTE | 2018-11-08 22:30 | NUR ---
RN NOTES Pt REFUSED FOR PICTURES TO BE TAKEN AT THIS TIME.
--- NOTE | 2018-11-08 23:30 | NUR ---
RN NOTES S/B DR CARDENAS AT BEDSIDE.
[2018-11-09] VITALS: BP 121/52
[2018-11-09] MEDS: HYDROCODONE/APAP 5/325MG 1 EACH TABLET PO PRN ×3 (00:02→20:22)
--- NOTE | 2018-11-09 06:40 | NUR ---
RN CLOSING NOTES NO SIGNIFICANT CHANGES IN Pt's CONDITION. Pt REMAINS STABLE PER BASELINE. NO S/S OF ACUTE DISTRESS OR SOB NOTED DURING THE NIGHT. ALL NEEDS MET AND ATTENDED TO. SAFETY MEASURES IN PLACE. IV ACCESS ON SIRIA PICC LINE, [place]. WILL ENDORSE TO DAYSHIFT RN FOR Pt's SADIA.
[2018-11-09 08:00] VITALS: BP 143/98
[2018-11-09] MEDS: BLOOD SUGAR DIAGNOSTIC 1 EACH STRIP IN SCH ×4 (08:07→21:53)
[2018-11-09] MEDS: HYDROGEL DRESSING 90 GM TUBE TP SCH (08:12)
[2018-11-09] MEDS: NYSTATIN TOP POWDER 15 GM BOTTLE TP SCH ×2 (08:13→17:35)
[2018-11-09] MEDS: INSULIN REGULAR, HUMAN 100 UNIT/ML 3 ML VIAL SQ PRN ×4 (08:17→21:52)
[2018-11-09 12:00] VITALS: BP 90/68
[2018-11-09 16:00] VITALS: BP 98/78
--- NOTE | 2018-11-09 16:00 | NUR ---
rn note spoke with [facility] HD coordinator and reminded him about pt has an order for HD today, he will follow up.
--- NOTE | 2018-11-09 19:30 | NUR ---
RN NOTE: PATIENT RESTING IN BED, NO ACUTE DISTRESS NOTED. BREATHING EVEN AND UNLABORED, NO SOB NOTED. PICC LINE TO SIRIA IN PLACE. AV SHUNT TO JESÚS IN PLACE, NO BLEEDING NOTED. DRESSING TO RIGHT HAND IN PLACE. BED LOCK AND IN LOWEST POSITION, CALL LIGHT IN REACH. WILL CONTINUE TO MONITOR. Addendum: 11/09/18 at 2028 by MICHAEL GURROLA RN ILEOSTOMY IN PLACE, EMPTY AT THIS TIME.
[2018-11-09 20:00] VITALS: BP 109/45
--- NOTE | 2018-11-09 20:30 | NUR ---
MS RN NOTE: PATIENT COMPLAINS OF ABDOMINAL PAIN 09/30, NORCO 5/325MG 1 TAB ORAL GIVEN PER MD ORDER. WILL CONTINUE TO MONITOR.
[2018-11-09] MEDS ORDERED: SODIUM POLYSTYRENE SULFONATE 15 G/60 ML BOTTLE PO ONE (22:00)
--- NOTE | 2018-11-09 22:00 | NUR ---
MS RN NOTE: PATIENT BLOOD SUGAR LEVEL 233MG/DL, PATIENT TO RECEIVE 4 UNITS OF INSULIN PER SLIDING SCALE. FOLLOWED UP WITH HD IF WILL BE TONIGHT. PATIENT TO RECEIVE HD TOMORROW IN AM. SPOKE TO DR. MO AND PATIENT TO ENTER ORDERS FOR KAYEXELATE AND FOR AM LABS. WILL CONTINUE TO MONITOR.
[2018-11-09] MEDS ORDERED: SODIUM POLYSTYRENE SULFONATE 15 G/60 ML BOTTLE ONE (22:36)
--- NOTE | 2018-11-09 22:45 | NUR ---
MS RN NOTE: PATIENT GIVEN KAYEXELATE 30GRAM ORAL ORDERED PER MD. WILL CONTINUE TO MONITOR.
[2018-11-10] VITALS (21 sets, daily range): BP systolic 57–141; BP diastolic 21–121
[2018-11-10] MEDS: HYDROCODONE/APAP 5/325MG 1 EACH TABLET PO PRN ×2 (01:30→16:01)
--- NOTE | 2018-11-10 01:30 | NUR ---
MS RN NOTE: PATIENT COMPLAINS OF ABDOMINAL PAIN 09/30, NORCO 5/325MG 1 TAB ORAL GIVEN PER MD ORDER. WILL CONTINUE TO MONITOR.
--- NOTE | 2018-11-10 06:24 | NUR ---
MS RN NOTE: PATIENT RESTING IN BED, NO ACUTE DISTRESS NOTED. BREATHING EVEN AND UNLABORED, NO SOB NOTED. PICC LINE TO SIRIA IN PLACE. AV SHUNT TO JESÚS IN PLACE, NO BLEEDING NOTED. PATIENT BLOOD SUGAR LEVEL 166MG/DL, PATIENT TO RECEIVE 3 UNITS OF INSULIN PER SLIDING SCALE. DRESSING TO RIGHT HAND IN PLACE. OSTOMY IN PLACE AND EMPTIED. BED LOCK AND IN LOWEST POSITION, CALL LIGHT IN REACH. WILL ENDORSE TO DAY NURSE TO CONTINUE WITH PLAN OF CARE.
[2018-11-10 06:47] LABS: CALCIUM, SERUM 10.1 mg/dL (8.5-10.1)
[2018-11-10] MEDS: BLOOD SUGAR DIAGNOSTIC 1 EACH STRIP IN SCH ×4 (06:50→23:09)
[2018-11-10] MEDS: INSULIN REGULAR, HUMAN 100 UNIT/ML 3 ML VIAL SQ PRN ×3 (06:51→23:10)
[2018-11-10 06:57] LABS: CREATININE 13.3 mg/dL (0.6-1.3); POTASSIUM 8.4 mmol/L (3.5-5.1)
[2018-11-10 07:12] LABS: BASOPHILS # (AUTO) 0.1 /CMM (0.0-0.2); BASOPHILS % (AUTO) 0.8 % (0.0-2.0); EOSINOPHILS % (AUTO) 3.5 % (0.0-6.0); HEMATOCRIT 47 % (39-51); HEMOGLOBIN 15.2 g/dL (13.5-17.5); LYMPHOCYTES # (AUTO) 2.7 /CMM (0.8-4.8); LYMPHOCYTES % (AUTO) 21.9 % (20.0-44.0); MEAN CORPUSCULAR HGB CONC 33 g/dl (31.0-36.0); MEAN CORPUSCULAR VOLUME 94 fL (80-96); MONOCYTES # (AUTO) 0.8 /CMM (0.1-1.30); MONOCYTES % (AUTO) 6.4 % (2.0-12.0); NEUTROPHILS # (AUTO) 8.2 /CMM (1.8-8.9); NEUTROPHILS % (AUTO) 67.4 % (43.0-81.0); PLATELET COUNT (AUTO) 168 /CMM (150-450); RED BLOOD CELL COUNT(AUTO) 4.97 MIL/uL (4.5-6.0); WHITE BLOOD COUNT (AUTO) 12.2 K/uL (4.3-11.0)
--- NOTE | 2018-11-10 07:13 | NUR ---
MS RN NOTE: RECEIVED CALL FROM LAB FOR CRITICAL RESULT OF K 8.4; BUN 107; CREAT 13.3. DR. PAT ON THE FLOOR AND INFORMED ABOUT LAB RESULTS AND HE WILL CALL HD NURSE TO HAVE PATIENT RECEIVE HD. WILL ENDORSE TO DAY NURSE.
[2018-11-10] MEDS ORDERED: SODIUM BICARBONATE SYR 50 MEQ/50 ML DISP.SYRIN IV ONE (07:30)
[2018-11-10] MEDS ORDERED: DEXTROSE 50%-WATER 50 ML DISP.SYRIN IVP ONE (07:30)
[2018-11-10] MEDS ORDERED: INSULIN REGULAR, HUMAN 100 UNIT/ML 3 ML VIAL SQ ONE (07:30)
--- NOTE | 2018-11-10 07:30 | NUR ---
CERTIFIED TECHNICIAN SPECIALIST NOTES RECEIVED PT IN THE BED VERY ANXIOUS AND COMPLAINS HE CANT BREATH WELL, PLACED O2 2L SAT, IS 94%, HE HAS ILEOSTOMY ON LOWER ABDOMINAL AREA WITH GREENISH COLOR STOOL. k LEVEL IS 8.4. DR MARTELL SAMPLER AND TEST PREPARER NOTIFIED. PT WILL HAVE DIALYSIS SOON.BS CHECKED 181 MG/DL.AV FISTULA JESÚS WITH BRUIT SOUND . ALL NEEDS ATTENDED CALL LIGHT WITHIN REACH . WILL CONTINUE TO MONITOR THE PT STATUES.
--- NOTE | 2018-11-10 08:00 | NUR ---
SENIOR MORTGAGE LOAN PROCESSOR NOTES FOR DR MARTELL SEAMLESS TUBE DRAWER SHEREE DONE ORDERED. SODIUM BICARB AND DEXTROSE 25% AND INSULIN GIVEN ORDERED. DIALYSIS NURSE AT BED SIDE. DIALYSIS WILL BE STARTED.BP 67/51 PER DIALYSIS NURSE. Addendum: 11/10/18 at 1005 by DMITRY RANDOLPH RN CORRECTING IN CHARTING BP 67/51 AND ALBUMIN GIVEN BY DIALYSIS NURSE . WILL MONITOR
[2018-11-10] MEDS ORDERED: ALBUMIN 25% 25 GM in PREMIX 1 EA IV ONE (09:00)
--- NOTE | 2018-11-10 10:05 | NUR ---
PERFUME COMPOUNDER NOTES PT ON TELE MONITOR ST 102.DIALYSIS COMPLETED NO FLUIDS OUT. BP IS 78/47 WILL CONTINUE TO MONITOR. WILL CHECK BP IN AN HOUR.
[2018-11-10] MEDS: HYDROGEL DRESSING 90 GM TUBE TP SCH (10:13)
[2018-11-10] MEDS: NYSTATIN TOP POWDER 15 GM BOTTLE TP SCH ×2 (10:13→16:59)
--- NOTE | 2018-11-10 10:27 | NUR ---
MS RN NOTE CHEST X RAY DONE ORDERED
--- NOTE | 2018-11-10 11:53 | NUR ---
AGENT CONTRACT CLERK NOTES REPORTED LOW BP 73/30 TO GRECIA DAVIDSON RN EMT I/85. PT BP WAS 67/51 DURING DIALYSIS. ALBUMIN WAS GIVEN BY DIALYSIS NURSE. REPORTED THE RESULT OF CHEST X RAY. PT STOOL WAS DARK GREEN COLOR. RN EMT I/85 LEA ORDERED 500 ML IV BOLUS. ORDER CARRIED OUT.
[2018-11-10] MEDS ORDERED: IV NS 0.9% 500 ML IV ONE ×2 (12:00→15:00)
--- NOTE | 2018-11-10 13:47 | NUR ---
HEALTH IT SPECIALIST NOTES GRECIA TATE RN TEACHER PUBLIC HEALTH AT BED SIDE . NOTIFIED BP 78/41 ALSO OK TO REPEAT BMP. AWARE OF CHEST X RAY RESULT. AWARE PT NO SOB AT THIS TIME BUT TELE MONITOR SEEN PICKED WAVES. TEACHER PUBLIC HEALTH ORDERED MIDODRINE. WILL FOLLOW UP.
[2018-11-10] MEDS ORDERED: MIDODRINE HCL (5MG) 5 MG TABLET PO ONE (14:00)
[2018-11-10] MEDS ORDERED: FEE PK DOSING 1 MIN EA MC ONE (15:13)
[2018-11-10 15:15] LABS: CALCIUM, SERUM 9.5 mg/dL (8.5-10.1); POTASSIUM 5.8 mmol/L (3.5-5.1)
[2018-11-10 15:26] LABS: CREATININE 10.2 mg/dL (0.6-1.3)
[2018-11-10] MEDS ORDERED: NOREPINEPHRINE 8 MG in IV D5W 500 ML IV PRN ×2 (15:30→20:00)
--- NOTE | 2018-11-10 15:30 | NUR ---
MS RN NOTES GRECIA TATE RN GRINDER OPERATOR EXTERNAL TOOL AT BED SIDE WHEN THE BP 78/51 ORDERED TO TRANSFER TO ICU. LACTIC ACID ORDERED AFTER BOLUS ADMINISTRATION BAG NO2. STARTED TO ADMINISTER BOLUS NS 500 ML. WOUND CULTURE AND PICTURE DONE ORDERED PER GRECIA TATE RN GRINDER OPERATOR EXTERNAL TOOL
--- NOTE | 2018-11-10 15:40 | NUR ---
COATING LINE WORKER NOTE JOANA STEVENS AWARE THAT K NOW 5.8
[2018-11-10] MEDS ORDERED: VANCOMYCIN 1 GM in IV D5W 250 ML IV ONE (16:00)
--- NOTE | 2018-11-10 16:23 | NUR ---
MS RN NOTES PT TRANSFERRED ICU PER GRECIA TATE RN TRUST MANAGER ASSISTANT BY ACLS PROTOCOL. REPORT GIVEN TO FERNANDO HERNANDEZ FROM ICU.
[2018-11-10] MEDS: MIDODRINE HCL (5MG) 5 MG TABLET PO SCH (17:09)
[2018-11-10 17:23] LABS: BILIRUBIN,DIRECT 0.1 mg/dL (0.0-0.2); BILIRUBIN,TOTAL 0.4 mg/dL (0.2-1.0)
[2018-11-10] MEDS: PIPERACILLIN /TAZOBACTAM 2.25 G in IV D5W 50 ML IV SCH (17:47)
--- NOTE | 2018-11-10 18:20 | NUR ---
ADMINISTRATIVE SUPERVISOR NOTES: 1600 Rec'd pt from Madisyn HERNANDEZ. Pt transferred to ICU 257 d/t reported hypotension 78/47. Pt is A/O x 4, not in any distress, c/o back pain 09/30. On R/A, no SOB. SR on telemonitor. SIRIA PICC line patent & intact w/ no s/sx of infection/infiltration noted, 500cc of NS bolus ongoing. L arm precaution d/t presence of AVF. Per report, pt had HD today w/ no UF. Pt noted to have orthostatic hypotension. All belongings at bedside. Safety precaution in place w/ bed in lowest & locked pos. Call light placed w/in reach. Will cont to monitor & attend pt needs. 1819 Lactic Acid 3.2, called Amarjit CALDERON & made aware w/ NNO. Addendum: 11/10/18 at 1858 by ERI PEDERSEN RN Addendum: Pt brought to [facility] dept for CT scan of abdomen/pelvis, tolerated well. VS stable. Pt resting comfortably on his bed, not in any distress. Needs attended. Will endorse to PM RN for SADIA.
--- NOTE | 2018-11-10 19:30 | NUR ---
TELEPHONE CLEANER INITIAL SHIFT NOTES RECEIVED PATIENT IN BED, AWAKE, ALERT AND ORIENTED X4, ABLE TO VERBALIZE NEEDS. BREATHING IS EVEN AND NONLABORED, TOLERATING ROOM AIR WELL, SPO2 WITHIN NORMAL LIMITS, FREE FROM ANY S/S OF RESPIRATORY DISTRESS. NOTED WITH DOUBLE LUMEN RIGHT UPPER ARM PICC, BOTH PORTS FLUSHED WITH NS, FREE FROM ANY S/S OF INFILTRATION OR PHLEBITIS. LEFT ARM AV FISTULA, NO BLEEDING NOTED AT SITE. PATIENT WITH RIGHT LOWER QUADRANT ILEOSTOMY, NOTED WITH GREEN/BROWN OUTPUT AND VISIBLE CHUNKS OF UNDIGESTED FOOD. RIGHT HAND DRESSING INTACT. BP WNL AT THIS TIME, WILL MONITOR CLOSELY AND INITIATE PRESSOR SUPPORT IF NEEDED, LEVOPHED GTT ON STANDBY
--- NOTE | 2018-11-10 22:00 | NUR ---
INFORMATION SCIENTIST NOTES PATIENT RESTLESS, CONSTANTLY TURNING IN BED. ASSISTED WITH REPOSITIONING, ALL TUBES/LINES STRAIGHTENED, PATIENT MADE COMFORTABLE.
[2018-11-11] VITALS (28 sets, daily range): BP systolic 74–136; BP diastolic 28–75
--- NOTE | 2018-11-11 | NUR ---
STEAM CONDITIONER OPERATOR NOTES PATIENT PRESSED CALL LIGHT FOR ASSISTANCE, STATING "MY COLOSTOMY BAG JUST BLEW UP." UPON ASSESSMENT, ILEOSTOMY BAG COMPLETELY OFF. PATIENT BATHED WELL, NEW ILEOSTOMY BAG IN PLACE. PATIENT TOLERATED CLEANING AND REAPPLICATION OF ILEOSTOMY BAG WELL. WILL MONITOR CLOSELY
[2018-11-11] MEDS: PIPERACILLIN /TAZOBACTAM 2.25 G in IV D5W 50 ML IV SCH ×3 (01:14→17:53)
[2018-11-11 04:12] LABS: BASOPHILS # (AUTO) 0.1 /CMM (0.0-0.2); BASOPHILS % (AUTO) 0.9 % (0.0-2.0); EOSINOPHILS % (AUTO) 3.1 % (0.0-6.0); HEMATOCRIT 38 % (39-51); HEMOGLOBIN 12.7 g/dL (13.5-17.5); LYMPHOCYTES # (AUTO) 2.2 /CMM (0.8-4.8); LYMPHOCYTES % (AUTO) 22.1 % (20.0-44.0); MEAN CORPUSCULAR HGB CONC 34 g/dl (31.0-36.0); MEAN CORPUSCULAR VOLUME 93 fL (80-96); MONOCYTES # (AUTO) 0.9 /CMM (0.1-1.30); MONOCYTES % (AUTO) 9.3 % (2.0-12.0); NEUTROPHILS # (AUTO) 6.5 /CMM (1.8-8.9); NEUTROPHILS % (AUTO) 64.6 % (43.0-81.0); PLATELET COUNT (AUTO) 142 /CMM (150-450); RED BLOOD CELL COUNT(AUTO) 4.08 MIL/uL (4.5-6.0)
[2018-11-11 04:28] LABS: CALCIUM, SERUM 8.9 mg/dL (8.5-10.1); POTASSIUM 5.7 mmol/L (3.5-5.1)
[2018-11-11 04:47] LABS: CREATININE 11.4 mg/dL (0.6-1.3)
--- NOTE | 2018-11-11 07:00 | NUR ---
REQUIREMENTS MANAGER NOTES PATIENT RESTING COMFORTABLY IN BED, RIGHT HAND WOUND CARE RENDERED, PATIENT TOLERATED WELL. ILEOSTOMY BAG INTACT. BLOOD PRESSURE REMAINED STABLE THROUGHOUT THE SHIFT, NO NEED FOR LEVOPHED GTT. WILL ENDORSE THE PATIENT TO THE AM SHIFT NURSE FOR CONTINUITY OF CARE
--- NOTE | 2018-11-11 07:15 | NUR ---
ICU OPENING NOTES RECEIVED BEDSIDE REPORT. PATIENT SLEEPING ABLE TO AROUSE WITH VOICE AND TOUCH. A/O X4. NO SIGNS OR SYMPTOMS OF RESPIRATORY DISTRESS OR ACUTE PAIN NOTED SATURATING WELL ON ROOM AIR. NO HYPOTENSION AT THIS TIME B/P 103/48. SINUS WITH BBB. . ANURIC URINAL AT BEDSIDE. ILEOSTOMY DRAINING LIQUID STOOL. SIRIA PICC PATENT WITH GOD BLOOD RETURN SALINE LOCK. JESÚS AV SHUNT FOR HD. RIGHT HAND DRESSING INTACT POST DEBRIDEMENT.ABLE TO MAKE NEEDS KNOWN SAFETY AND FALL PRECAUTIONS IN PLACE BED IN LOW LOCKED POSITION CALL LIGHT WITHIN REACH WILL CONT TO MONITOR ACCORDINGLY
[2018-11-11] MEDS: BLOOD SUGAR DIAGNOSTIC 1 EACH STRIP IN SCH ×4 (07:31→22:55)
[2018-11-11] MEDS: INSULIN REGULAR, HUMAN 100 UNIT/ML 3 ML VIAL SQ PRN ×4 (07:34→23:13)
[2018-11-11] MEDS: MIDODRINE HCL (5MG) 5 MG TABLET PO SCH ×3 (08:06→17:53)
[2018-11-11] MEDS: NYSTATIN TOP POWDER 15 GM BOTTLE TP SCH ×2 (09:09→17:55)
[2018-11-11] MEDS: HYDROGEL DRESSING 90 GM TUBE TP SCH (09:09)
[2018-11-11] MEDS: HYDROCODONE/APAP 5/325MG 1 EACH TABLET PO PRN ×3 (12:29→23:16)
--- NOTE | 2018-11-11 14:15 | NUR ---
PATIENT ASSISTED INTO CHAIR AND AMBULATED AROUND UNIT. B/P STILL IN LOW 90'S UPPER 80'S. WILL CONT TO MONITOR
[2018-11-11] MEDS ORDERED: NEPRO VAN 237 ML CAN PO PRN (15:00)
[2018-11-11] MEDS ORDERED: VANCOMYCIN 500 MG in IV D5W 100 ML IV PRN (16:00)
[2018-11-11] MEDS: LACTOBACILLUS RHAMNOSUS GG 1 EACH CAP.SPRINK PO SCH (17:55)
--- NOTE | 2018-11-11 18:18 | NUR ---
UNABLE TO HAVE HD TODAY D/T FISTULA UNABLE TO ACCESS PATIENT K+ 5.7. MESSAGE LEFT WITH ROHIT
--- NOTE | 2018-11-11 18:21 | NUR ---
DR BOND ORDERS FOR KAYEXALATE 30GRAMS PO AND WILL ADDRESS CATH IN THE AM
--- NOTE | 2018-11-11 18:28 | NUR ---
NOTIFIED DR LEWIS IF HE WANTS TO STILL DOWNGRADE PATIENT AWAITING RESPONSE
[2018-11-11] MEDS ORDERED: SODIUM POLYSTYRENE SULFONATE 15 G/60 ML BOTTLE PO ONE (18:30)
--- NOTE | 2018-11-11 18:33 | NUR ---
DR LEWIS ORDERS TO KEEP IN ICU UNLESS THEY NEED TO DOWNGRADE TO KIM.
--- NOTE | 2018-11-11 18:46 | NUR ---
STEREOTYPE CASTER NOTES PATIENT REMAINED STABLE THROUGHOUT SHIFT. NO S/S OF RESPIRATORY DISTRESS OR ACUTE PAIN NOTED. DRESSING CHANGED ORDERED KEPT CLEAN AND DRY. ILEOSTOMY DRAINING LIQUID STOOL CHANGED NEEDED. MD AWARE OF K+ LEVEL AND STATUS OF AV FISTULA. SAFETY PRECAUTIONS IN PLACE BED IN LOW LOCKED POSITION . ABLE TO MAKE NEEDS KNOWN AND ALL NEEDS MET BY STAFF. WILL ENDORSE TO NOC
--- NOTE | 2018-11-11 19:00 | NUR ---
RECEIVED PATIENT IN NO ACUTE DISTRESS IN BED. PATIENT IS A/O X 4 AND ABLE TO MAKE NEEDS KNOWN. PATIENT IS ON RA AND TOLERATING WELL. PATIENT IS ON TELE WITH SINUS RHYTHM ON THE MONITOR. PATIENT HAS ILEOSTOMY THAT IS CLEAN DRY INTACT AND PATENT WITH BROWN STOOL IN BAG. PATIENT HAS RIGHT UPPER ARM TRIPLE LUMEN PICC LINE THAT IS CLEAN DRY INTACT AND PATENT WITH SALINE FLUSH. BED IN LOW LOCK POSITION WITH RAILS UP X 2. CALL LIGHT WITHIN REACH AND ALL SAFETY MEASURES ENSURED AND CARRIED OUT. WILL CONTINUE TO MONITOR PATIENT.
--- NOTE | 2018-11-11 19:30 | NUR ---
PATIENT REFUSED TO HAVE PULSE OXIMETER ON. EDUCATED PATIENT ON IMPORTANCE OF MONITORING OXYGEN SATURATION, BUT PATIENT CONTINUED TO REFUSE.
[2018-11-12] VITALS (20 sets, daily range): BP systolic 81–118; BP diastolic 25–68
[2018-11-12] MEDS: PIPERACILLIN /TAZOBACTAM 2.25 G in IV D5W 50 ML IV SCH ×3 (01:59→19:03)
[2018-11-12 04:37] LABS: CALCIUM, SERUM 9.4 mg/dL (8.5-10.1); POTASSIUM 6.1 mmol/L (3.5-5.1)
[2018-11-12 04:50] LABS: CREATININE 12.9 mg/dL (0.6-1.3)
[2018-11-12 05:07] LABS: BASOPHILS # (AUTO) 0.1 /CMM (0.0-0.2); BASOPHILS % (AUTO) 0.8 % (0.0-2.0); EOSINOPHILS % (AUTO) 3.4 % (0.0-6.0); HEMATOCRIT 37 % (39-51); HEMOGLOBIN 12.1 g/dL (13.5-17.5); LYMPHOCYTES # (AUTO) 2.6 /CMM (0.8-4.8); LYMPHOCYTES % (AUTO) 22.2 % (20.0-44.0); MEAN CORPUSCULAR HGB CONC 33 g/dl (31.0-36.0); MEAN CORPUSCULAR VOLUME 93 fL (80-96); NEUTROPHILS # (AUTO) 7.5 /CMM (1.8-8.9); NEUTROPHILS % (AUTO) 64.6 % (43.0-81.0); PLATELET COUNT (AUTO) 157 /CMM (150-450); RED BLOOD CELL COUNT(AUTO) 3.97 MIL/uL (4.5-6.0); WHITE BLOOD COUNT (AUTO) 11.6 K/uL (4.3-11.0)
--- NOTE | 2018-11-12 06:52 | NUR ---
PATIENT REMAINS IN NO ACUTE DISTRESS IN BED. PT DID NOT HAVE ANY SIGNIFICANT CHANGE IN CONDITION DURING SHIFT. ALL NEEDS MET, ALL ORDERS CARRIED OUT. WILL ENDORSE CARE TO AM RN FOR CONTINUITY OF CARE.
[2018-11-12] MEDS: BLOOD SUGAR DIAGNOSTIC 1 EACH STRIP IN SCH ×4 (07:33→21:17)
[2018-11-12] MEDS: INSULIN REGULAR, HUMAN 100 UNIT/ML 3 ML VIAL SQ PRN ×3 (07:35→21:21)
--- NOTE | 2018-11-12 07:53 | NUR ---
ICU/RN INITIAL NOTES,AM RECEIVED BEDSIDE REPORT. PATIENT SLEEPING ABLE TO AROUSE, A/O X4. NO SIGNS OR SYMPTOMS OF RESPIRATORY DISTRESS OR ACUTE PAIN NOTED SATURATING WELL ON ROOM AIR. SINUS WITH BBB. . ANURIC URINAL AT BEDSIDE. ILEOSTOMY DRAINING LIQUID STOOL. SIRIA PICC PATENT WITH GOOD BLOOD RETURN NOTED, SALINE LOCK. JESÚS AV SHUNT FOR HD, NOT WORKING AT THIS TIME, MD AWARE. RIGHT HAND DRESSING INTACT. ABLE TO MAKE NEEDS KNOWN SAFETY AND FALL PRECAUTIONS IN PLACE BED IN LOW LOCKED POSITION CALL LIGHT WITHIN REACH WILL CONT TO MONITOR ACCORDINGLY. POSSIBLE DOWNGRADE THIS AM
[2018-11-12] MEDS: LACTOBACILLUS RHAMNOSUS GG 1 EACH CAP.SPRINK PO SCH ×2 (08:53→19:03)
[2018-11-12] MEDS: NYSTATIN TOP POWDER 15 GM BOTTLE TP SCH ×2 (08:54→17:00)
[2018-11-12] MEDS: MIDODRINE HCL (5MG) 5 MG TABLET PO SCH ×3 (08:54→19:03)
[2018-11-12] MEDS: HYDROGEL DRESSING 90 GM TUBE TP SCH (08:54)
[2018-11-12] MEDS ORDERED: SODIUM POLYSTYRENE SULFONATE 15 G/60 ML BOTTLE PO ONE (10:00)
--- NOTE | 2018-11-12 10:15 | NUR ---
ICU/RN: REPORT ENDORSED TO MARY LOUISE. PT TRANSFERRED TO [facility] VIA BED ALONG WITH ALL BELONGINGS. VSS. NO DISTRESS. ALL NEEDS ATTENDED TO, SAFETY MEASURE TAKEN, BED IN LOW POSITION, SIDE RAILS UP, CALL LIGHT WITHIN REACH. ENDORSED TO ASPEN PT WILL BE HAVING HD CATH PLACED, CONSENT IN CHART.
--- NOTE | 2018-11-12 10:36 | NUR ---
RECEIVED PATIENT ICU DOWNGRADE FROM KYMBERLY HERNANDEZ. A/OX4, NO ACUTE DISTRESS OR SOB NOTED. DENIES CHEST PAIN AT THIS TIME. TELE MONITOR ATTACHED, HR 91, OCCASIONAL PACS, PEAKED T WAVES, BBB. BP 90/47. ILEOSTOMY ATTACHED AND DRAINING. SIRIA PICC CLEAN, DRY AND INTACT. CALL LIGHT WITHIN REACH. BED LOCKED, LOW, SIDE RAILS UPX2, ABLE TO MAKE NEEDS KNOWN, WILL CONTINUE TO MONITOR Addendum: 11/12/18 at 1154 by ASPEN NEWMAN RN MARY GARCIA
--- NOTE | 2018-11-12 10:58 | NUR ---
CENTRAL LINE SSIS DEVELOPER AT BEDSIDE TO INSERT FEMORAL DIALYSIS CATHETER
--- NOTE | 2018-11-12 11:25 | NUR ---
PROCEDURE COMPLETE. NO S/S BLEEDING NOTED. BP READING CHANGING 58/17 , 156/109
--- NOTE | 2018-11-12 12:01 | NUR ---
HEMODIALYSIS CATHETER INSERTION Shade Maker: [facility] Eduardo NP Patient has order to insert HD catheter. Informed consent is signed and in chart. Insertion site determined to be right femoral vein. Patient was prepped using sterile technique with chlorhexidine. Patient was covered with a sterile drape and i donned a sterile gown. The insertion site was anesthetized with 1% lidocaine. Needle inserted under ultrasound guidance. Guidewire inserted through needle and needle removed. Small crista made at insertion site of approximately 2 mm. Dilator inserted over guidewire then removed. Catheter inserted fully over guidewire. Guidewire removed. Blood return at all 3 ports. Caps placed on each port. Catheter secured with 2 sutures. Biopatch placed and covered with tegaderm. No s/s of complication. Tolerated well with minimal blood loss. Ebl 3ml. Addendum: 11/12/18 at 1202 by EBONIE EDUARDO RN double lumen catheter used.
--- NOTE | 2018-11-12 15:04 | NUR ---
TELEGRAPH EQUIPMENT MAINTAINER AT BEDSIDE
--- NOTE | 2018-11-12 18:25 | NUR ---
DIALYSIS COMPLETE BP 120/60, HR 78
--- NOTE | 2018-11-12 19:00 | NUR ---
SENIOR PRODUCT DESIGNER CLOSING NOTE PATIENT A/OX4, NO ACUTE DISTRESS OR SOB NOTED. PATIENT DENIES CHEST PAIN OR PALPITATIONS AT THIS TIME. TELE MONITOR ATTACHED, ON ROOM AIR. SIRIA PICC LINE + R FEMORAL HD CATH C/D/I. COLOSTOMY BAG DRAINING. PATIENT ABLE TO MAKE NEEDS KNOWN. ENDORSED TO SOLUTIONS DELIVERY CONSULTANT RN FOR SADIA
[2018-11-12] MEDS: HYDROCODONE/APAP 5/325MG 1 EACH TABLET PO PRN (19:52)
--- NOTE | 2018-11-12 20:00 | NUR ---
RN INITIAL NOTES RECEIVED PATIENT SLEEPING ABLE TO AROUSE, A/O X4. NO SIGNS OR SYMPTOMS OF RESPIRATORY DISTRESS OR ACUTE PAIN NOTED SATURATING WELL ON ROOM AIR. SR . ANURIC URINAL AT BEDSIDE. ILEOSTOMY DRAINING SEMI LIQUID STOOL . SIRIA PICC PATENT NOTED, SALINE LOCK. JESÚS AV SHUNT FOR HD, NOT WORKING AT THIS TIME, MD AWARE. RIGHT HAND DRESSING INTACT. ABLE TO MAKE NEEDS KNOWN SAFETY AND FALL PRECAUTIONS IN PLACE BED IN LOW LOCKED POSITION CALL LIGHT WITHIN REACH WILL CONT TO MONITOR ACCORDINGLY.
[2018-11-13] VITALS: BP 103/53
[2018-11-13] MEDS: HYDROCODONE/APAP 5/325MG 1 EACH TABLET PO PRN ×2 (00:27→07:42)
[2018-11-13] MEDS: PIPERACILLIN /TAZOBACTAM 2.25 G in IV D5W 50 ML IV SCH ×2 (00:58→09:00)
[2018-11-13 04:00] VITALS: BP 100/58
--- NOTE | 2018-11-13 06:31 | NUR ---
RN CLOSING NOTE PATIENT A/OX4,AMBULATES IN ROOM, NO ACUTE DISTRESS OR SOB NOTED. PATIENT DENIES CHEST PAIN OR PALPITATIONS AT THIS TIME. TELE MONITOR ATTACHED, ON ROOM AIR. SIRIA PICC LINE S/L AND R FEMORAL HD CATH C/D/I. ILEOSTOMY BAG DRAINING. PATIENT ABLE TO MAKE NEEDS KNOWN. WILL ENDORSE TO AM SHIFT RN FOR SADIA
--- NOTE | 2018-11-13 07:15 | NUR ---
RN OPENING NOTES PT IS AWAKE AND ALERT DENIES ANY PAIN OR SOB. REPORT RECEIVED FROM FIRE PREVENTION CHIEF RN. PT HAS A SIRIA PICC LINE SL. PT'S ABLE TO AMBULATE. BED IS LOCKED AND IN LOWEST POSITION WITH CALL LIGHT IN REACH WILL CONTINUE TO MONITOR.
[2018-11-13 07:35] LABS: BASOPHILS # (AUTO) 0.1 /CMM (0.0-0.2); BASOPHILS % (AUTO) 0.9 % (0.0-2.0); EOSINOPHILS % (AUTO) 3.7 % (0.0-6.0); HEMATOCRIT 36 % (39-51); LYMPHOCYTES # (AUTO) 2.4 /CMM (0.8-4.8); LYMPHOCYTES % (AUTO) 23.8 % (20.0-44.0); MEAN CORPUSCULAR HGB CONC 33 g/dl (31.0-36.0); MEAN CORPUSCULAR VOLUME 93 fL (80-96); MONOCYTES # (AUTO) 0.8 /CMM (0.1-1.30); MONOCYTES % (AUTO) 7.7 % (2.0-12.0); NEUTROPHILS # (AUTO) 6.4 /CMM (1.8-8.9); NEUTROPHILS % (AUTO) 63.9 % (43.0-81.0); PLATELET COUNT (AUTO) 146 /CMM (150-450); RED BLOOD CELL COUNT(AUTO) 3.85 MIL/uL (4.5-6.0)
[2018-11-13] MEDS: BLOOD SUGAR DIAGNOSTIC 1 EACH STRIP IN SCH ×4 (07:43→21:23)
[2018-11-13 07:45] LABS: CALCIUM, SERUM 9.5 mg/dL (8.5-10.1)
[2018-11-13 07:52] LABS: CREATININE 10.1 mg/dL (0.6-1.3)
--- NOTE | 2018-11-13 07:54 | NUR ---
RECEIVED CRITICAL LAB VALUE OF CREATININE OF 10.1 MD ALREADY AWARE OF HIGH CREATININE LEVELS DUE TO PREVIOUS LAB DRAWS.
[2018-11-13 08:00] VITALS: BP 144/84
[2018-11-13] MEDS: LACTOBACILLUS RHAMNOSUS GG 1 EACH CAP.SPRINK PO SCH ×2 (09:00→17:36)
[2018-11-13] MEDS: MIDODRINE HCL (5MG) 5 MG TABLET PO SCH ×3 (09:00→17:00)
[2018-11-13] MEDS: HYDROGEL DRESSING 90 GM TUBE TP SCH (09:01)
[2018-11-13] MEDS: NYSTATIN TOP POWDER 15 GM BOTTLE TP SCH ×2 (09:01→17:00)
[2018-11-13] MEDS: HYDROCODONE/APAP 10/325MG 1 EA TABLET PO PRN ×2 (12:02→21:21)
[2018-11-13] MEDS: INSULIN REGULAR, HUMAN 100 UNIT/ML 3 ML VIAL SQ PRN ×2 (12:03→18:03)
[2018-11-13] MEDS ORDERED: CEFEPIME 1 GM in IV D5W 50 ML IV SCH (15:00)
[2018-11-13 16:00] VITALS: BP 121/53
--- NOTE | 2018-11-13 17:55 | NUR ---
REPORT AND PT TRANSFER TO MARY FOSTER FOR CONTINUATION OF CARE.
--- NOTE | 2018-11-13 18:00 | NUR ---
MS RN NOTE GOT REPORT FROM MARY MARROQUIN AT BEDSIDE. PT IS AWAKE AND ALERT AND ABLE TO AMBULATE. NO SIGN OF SOB OR RESPIRATORY DISTRESS NOTED. BED IS LOCKED AND IN LOWEST POSITION WITH CALL LIGHT IN REACH WILL CONTINUE TO MONITOR.
[2018-11-13] MEDS ORDERED: FEE PK DOSING 1 MIN EA MC ONE (18:02)
--- NOTE | 2018-11-13 19:33 | NUR ---
MS RN CLOSING NOTE PATIENT A/O X1-2. NO ACUTE DISTRESS OR SOB NOTED. ON ROOM AIR SATURATING WELL. ALL NEEDS ATTENDED. BED, LOCKED, LOW, SIDE RAILS UPX2, CALL LIGHT WITHIN THE REACH. ENDORSED TO SEED CLEANER FOR SADIA.
[2018-11-13 20:00] VITALS: BP 139/82
[2018-11-13] MEDS ORDERED: TOBRAMYCIN IV ONE (20:00)
[2018-11-13] MEDS ORDERED: D5W IV ONE (20:00)
--- NOTE | 2018-11-13 20:00 | NUR ---
RN INITIAL NOTES RECEIVED PATIENT SLEEPING ABLE TO BE AROUSED EASILY, A/O X4. NO SIGNS OR SYMPTOMS OF RESPIRATORY DISTRESS OR ACUTE PAIN NOTED SATURATING WELL ON ROOM AIR . ANURIC URINAL AT BEDSIDE. ILEOSTOMY DRAINING SEMI LIQUID STOOL . SIRIA PICC PATENT NOTED, SALINE LOCK. JESÚS AV SHUNT FOR HD, NOT WORKING AT THIS TIME, MD AWARE. RIGHT HAND DRESSING INTACT. ABLE TO MAKE NEEDS KNOWN SAFETY AND FALL PRECAUTIONS IN PLACE BED IN LOW LOCKED POSITION CALL LIGHT WITHIN REACH WILL CONT TO MONITOR ACCORDINGLY.
[2018-11-14 04:00] VITALS: BP 103/43
[2018-11-14] MEDS: HYDROCODONE/APAP 10/325MG 1 EA TABLET PO PRN ×3 (04:51→17:56)
--- NOTE | 2018-11-14 07:30 | NUR ---
INITIAL RECEIVED PATIENT AWAKE HAVING AM BATH, A/O X4. NO SIGNS OR SYMPTOMS OF RESPIRATORY DISTRESS OR ACUTE PAIN NOTED SATURATING WELL ON ROOM AIR . ANURIC URINAL AT BEDSIDE. ILEOSTOMY DRAINING SEMI LIQUID STOOL . SIRIA PICC PATENT NOTED, SALINE LOCK. JESÚS AV SHUNT FOR HD, NOT WORKING AT THIS TIME, MD AWARE. RIGHT HAND DRESSING INTACT. ABLE TO MAKE NEEDS KNOWN SAFETY AND FALL PRECAUTIONS IN PLACE BED IN LOW LOCKED POSITION CALL LIGHT WITHIN REACH WILL CONT TO MONITOR ACCORDINGLY.
[2018-11-14 07:37] LABS: BASOPHILS # (AUTO) 0.1 /CMM (0.0-0.2); BASOPHILS % (AUTO) 1.1 % (0.0-2.0); EOSINOPHILS % (AUTO) 4.6 % (0.0-6.0); HEMATOCRIT 36 % (39-51); HEMOGLOBIN 12.1 g/dL (13.5-17.5); LYMPHOCYTES # (AUTO) 2.3 /CMM (0.8-4.8); LYMPHOCYTES % (AUTO) 28.1 % (20.0-44.0); MEAN CORPUSCULAR HGB CONC 33 g/dl (31.0-36.0); MEAN CORPUSCULAR VOLUME 92 fL (80-96); MONOCYTES # (AUTO) 0.7 /CMM (0.1-1.30); MONOCYTES % (AUTO) 8.7 % (2.0-12.0); NEUTROPHILS # (AUTO) 4.7 /CMM (1.8-8.9); NEUTROPHILS % (AUTO) 57.5 % (43.0-81.0); PLATELET COUNT (AUTO) 137 /CMM (150-450); RED BLOOD CELL COUNT(AUTO) 3.93 MIL/uL (4.5-6.0); WHITE BLOOD COUNT (AUTO) 8.2 K/uL (4.3-11.0)
[2018-11-14] MEDS: BLOOD SUGAR DIAGNOSTIC 1 EACH STRIP IN SCH ×4 (07:52→21:33)
[2018-11-14] MEDS: INSULIN REGULAR, HUMAN 100 UNIT/ML 3 ML VIAL SQ PRN ×4 (07:56→21:36)
[2018-11-14 07:59] LABS: CALCIUM, SERUM 9.4 mg/dL (8.5-10.1); POTASSIUM 5.7 mmol/L (3.5-5.1)
[2018-11-14 08:00] VITALS: BP 110/76
[2018-11-14 08:01] LABS: CREATININE 12.2 mg/dL (0.6-1.3)
[2018-11-14] MEDS ORDERED: SIMETHICONE 80 MG TAB.CHEW PO PRN (09:00)
[2018-11-14] MEDS: LACTOBACILLUS RHAMNOSUS GG 1 EACH CAP.SPRINK PO SCH ×2 (09:16→17:01)
[2018-11-14] MEDS: MIDODRINE HCL (5MG) 5 MG TABLET PO SCH ×3 (09:16→17:02)
[2018-11-14] MEDS: HYDROGEL DRESSING 90 GM TUBE TP SCH (09:17)
[2018-11-14] MEDS: NYSTATIN TOP POWDER 15 GM BOTTLE TP SCH ×2 (09:17→17:02)
--- NOTE | 2018-11-14 14:07 | NUR ---
PATIENT ILEOSTOMY BAG CONSTANTLY DRAINING SEMI LIQUID STOOL,LEAKING AND CAUSING EXCORIATION OF SURROUNDING SKIN.SKIN PREP W/ PASTE DONE TO SECURE SITE.WILL CONTINUE TO MONITOR.
--- NOTE | 2018-11-14 14:31 | NUR ---
MD AWARE OF FREQUENT STOOL DRAINAGE FROM ILEOSTOMY, ON SIMETHECON ALREADY PER MD,WILL CONTINUE TO MONITOR.
[2018-11-14 16:00] VITALS: BP 107/75
--- NOTE | 2018-11-14 16:15 | NUR ---
MINIMAL LIQUID DRAIN STOMA.KEEP SKIN CLEAN AND DRY.WILL CONTINUE TO MONITOR.
[2018-11-14] MEDS: TOBRAMYCIN 80 MG in IV D5W 50 ML IV PRN (19:16)
--- NOTE | 2018-11-14 19:25 | NUR ---
MS/RN NOTES PATIENT RECEIVED, SITTING IN CHAIR AT THIS TIME, WATCHING TV, NO S/S OF ACUTE DISTRESS NOTED, RESPIRATION EVEN AND UNLABORED, NO SHORTNESS OF BREATH NOTED, PATIENT ON ROOM AIR, SATURATION 98%. PATIENT ALERT ORIENTED X4, DENIES ANY PAIN OR DISCOMFORT AT THIS TIME, ILEOSTOMY DRAINING WELL WITH SEMI LIQUID STOOLS, RIGHT UPPER ARM PICC LINE NOTED WITH NO S/S OF INFECTION, FLUSHED WITH NS AT THIS TIME. PATIENT ANURIC, S/P HEMODIALYSIS TODAY FOR CLEANING, CALL LIGHT WITHIN REACH, SAFETY MAINTAINED, BED AT THE LOWEST LOCKED POSITION, WILL CONTINUE TO MONITOR PATIENT PER PLAN OF CARE.
--- NOTE | 2018-11-14 19:33 | NUR ---
CLOSING vPATIENT A/O X1-2. NO ACUTE DISTRESS OR SOB NOTED. ON ROOM AIR SATURATING WELL. ALL NEEDS ATTENDED. BED, LOCKED, LOW, SIDE RAILS UPX2, CALL LIGHT WITHIN THE REACH. ENDORSED TO CATIA DESIGNER FOR CONTINUATION OF CARE
[2018-11-15] VITALS: BP 109/55
--- NOTE | 2018-11-15 06:54 | NUR ---
MS/RN NOTES PATIENT REMAINED IN STABLE CONDITION, NO SIGNIFICANT CHANGE IN CONDITION NOTED, RESPIRATION EVEN AND UNLABORED, NO SOB NOTED, NO S/S OF ACUTE DISTRESS NOTED. ALL DUE MEDS GIVEN ORDERED, PATIENT TOLERATED WELL. DENIES ANY PAIN AT THIS TIME. ALL NEEDS ATTENDANT, KEPT CLEAN AND DRY, SAFETY MAINTAINED, BED AT THE LOWEST LOCKED POSITION, CALL LIGHT WITHIN REACH, WILL ENDORSE TO AM SHIFT NURSE FOR SADIA.
[2018-11-15 07:32] LABS: BASOPHILS # (AUTO) 0.1 /CMM (0.0-0.2); BASOPHILS % (AUTO) 0.9 % (0.0-2.0); EOSINOPHILS % (AUTO) 5.1 % (0.0-6.0); HEMATOCRIT 37 % (39-51); HEMOGLOBIN 12.2 g/dL (13.5-17.5); LYMPHOCYTES # (AUTO) 2.5 /CMM (0.8-4.8); LYMPHOCYTES % (AUTO) 24.8 % (20.0-44.0); MEAN CORPUSCULAR HGB CONC 33 g/dl (31.0-36.0); MEAN CORPUSCULAR VOLUME 93 fL (80-96); MONOCYTES # (AUTO) 0.9 /CMM (0.1-1.30); MONOCYTES % (AUTO) 9.2 % (2.0-12.0); PLATELET COUNT (AUTO) 157 /CMM (150-450); RED BLOOD CELL COUNT(AUTO) 3.94 MIL/uL (4.5-6.0)
[2018-11-15 07:58] LABS: CALCIUM, SERUM 9.5 mg/dL (8.5-10.1)
[2018-11-15 08:00] VITALS: BP 106/48
--- NOTE | 2018-11-15 08:00 | NUR ---
MS RN NOTE PATIENT IN BED ALERT , ORIENTED WITH COLOSTOMY NAG IS LEAKING ,CHANGED NEED ,KEEP CLEAN DRY , NO SOB NOTED , DR MARTELL FABRICATION AND ASSEMBLY SUPERVISOR NOTIFIED THAT K 6.2 TODAY STATED THAT WILL HAVE HD TODAY, SIRIA PICC LINE IN PLACE NO S\S INFECTION NOTED , CALL LIGHT WITHIN REACH , WILL CONT TO MONITOR
[2018-11-15 08:06] LABS: CREATININE 12.6 mg/dL (0.6-1.3); POTASSIUM 6.2 mmol/L (3.5-5.1)
[2018-11-15] MEDS: LACTOBACILLUS RHAMNOSUS GG 1 EACH CAP.SPRINK PO SCH ×2 (08:21→16:24)
[2018-11-15] MEDS: HYDROGEL DRESSING 90 GM TUBE TP SCH (08:21)
[2018-11-15] MEDS: MIDODRINE HCL (5MG) 5 MG TABLET PO SCH ×3 (08:21→16:24)
[2018-11-15] MEDS: NYSTATIN TOP POWDER 15 GM BOTTLE TP SCH ×2 (08:21→16:29)
[2018-11-15] MEDS: BLOOD SUGAR DIAGNOSTIC 1 EACH STRIP IN SCH ×4 (08:21→22:09)
--- NOTE | 2018-11-15 08:45 | NUR ---
MS RN NOTE C\O PAIN IN BODY 7 \10 NORCO PO GIVEN ORDERED, BP 103/45 SAT 98%
[2018-11-15] MEDS: HYDROCODONE/APAP 5/325MG 1 EACH TABLET PO PRN ×3 (09:46→22:42)
--- NOTE | 2018-11-15 09:49 | NUR ---
patient ileostomy bag leaking again,post breakfast,large ileostomy output,unable to dry ileostomy site r/t to continues drainage,tried flexiseal bag to ileostomy bag,patient uncomfortable and getting anxious,skin excoriated surrounding area,dr. weir made aware of situation will request dietary consult and wound care.
--- NOTE | 2018-11-15 10:47 | NUR ---
MS RN NOTE JOANA TATE RN BUSINESS SUPPORT COORDINATOR AT BEDSIDE AWARE THAT ILEOSTOMY LEAKING WITH SEVERE EXCORIATION AROUND , STATED OK TO ORDER WOUND AND DIETARY CONSULT ALSO STATED WITH POSSIBLE TO D\C TO SNF, WILL F\U WITH PLASTICS SPREADING MACHINE OPERATOR
--- NOTE | 2018-11-15 10:59 | NUR ---
MS RN NOTE MATCH UP WORKER STOCK MOVER AT BEDSIDE RT CELESTINE HANDS WOUND CHECKED
[2018-11-15] MEDS: INSULIN REGULAR, HUMAN 100 UNIT/ML 3 ML VIAL SQ PRN ×3 (12:26→22:10)
--- NOTE | 2018-11-15 15:30 | NUR ---
MS RN NOTE HD COMPLETED, NO FLUIDS OUT ,BP 137/30 P 92
--- NOTE | 2018-11-15 15:43 | NUR ---
PATIENT SITTING AT EDGE OF BED,ILEOSTOMY BAG LEAKING AGAIN DESPITE CHANGE MULTIPLE TIMES,PATIENT REFUSING TO USE PASTE ON SURROUNDING OSTOMY SITE,EXPLAINED IT WILL AT LEAST SEAL SITE,STILL REFUSING WILL CONTINUE TO MONITOR.
[2018-11-15 15:51] VITALS: BP 115/34
[2018-11-15 16:00] VITALS: BP 115/34
--- NOTE | 2018-11-15 17:00 | NUR ---
MS RN NOTE SPOKE WITH [facility] ABOUT TOBRAMYCIN, STATED NO NEED TO ADMINISTERED TODAY
--- NOTE | 2018-11-15 19:00 | NUR ---
MS RN NOTE ILEOSTOMY STILL LEAKING , CHANGED THE BAG , KEEP CLEAN DRY , WILL CONT TO MONITOR CLOSELY , ALL NEEDS ATTENDED CALL LIGHT WITHIN REACH
[2018-11-15 20:00] VITALS: BP 117/51
[2018-11-16 04:00] VITALS: BP 100/46
[2018-11-16 07:22] LABS: CALCIUM, SERUM 9.3 mg/dL (8.5-10.1); POTASSIUM 5.9 mmol/L (3.5-5.1)
[2018-11-16 07:27] LABS: CREATININE 11.5 mg/dL (0.6-1.3)
[2018-11-16] MEDS: BLOOD SUGAR DIAGNOSTIC 1 EACH STRIP IN SCH ×4 (07:30→21:36)
[2018-11-16 08:00] VITALS: BP 89/26
[2018-11-16 09:25] VITALS: BP 99/32
[2018-11-16] MEDS: LACTOBACILLUS RHAMNOSUS GG 1 EACH CAP.SPRINK PO SCH ×2 (09:45→16:29)
[2018-11-16] MEDS: MIDODRINE HCL (5MG) 5 MG TABLET PO SCH ×3 (09:45→16:29)
[2018-11-16] MEDS: HYDROCODONE/APAP 10/325MG 1 EA TABLET PO PRN ×3 (10:07→21:36)
[2018-11-16] MEDS: HYDROGEL DRESSING 90 GM TUBE TP SCH (10:24)
[2018-11-16] MEDS: NYSTATIN TOP POWDER 15 GM BOTTLE TP SCH ×2 (10:25→16:32)
--- NOTE | 2018-11-16 10:31 | NUR ---
Change bag ostomy site x2 with greater than 1000 ml output at this time. Given as needed medication for pain.
[2018-11-16] MEDS: TOBRAMYCIN 80 MG in IV D5W 50 ML IV PRN (15:02)
[2018-11-16 16:00] VITALS: BP 113/49
[2018-11-16 20:00] VITALS: BP 138/39
--- NOTE | 2018-11-16 20:00 | NUR ---
RN INITIAL NOTES RECEIVED BEDSIDE REPORT FROM AM RN. PATIENT A/O X4. NO SIGNS OR SYMPTOMS OF RESPIRATORY DISTRESS OR ACUTE PAIN NOTED SATURATING WELL ON ROOM AIR . ANURIC URINAL AT BEDSIDE. ILEOSTOMY DRAINING SEMI LIQUID STOOL . SIRIA PICC LINE IS PATENT JESÚS AV SHUNT FOR HD, NOT WORKING AT THIS TIME, MD AWARE. RIGHT HAND DRESSING INTACT. ABLE TO MAKE NEEDS KNOWN SAFETY AND FALL PRECAUTIONS IN PLACE BED IN LOW LOCKED POSITION CALL LIGHT WITHIN REACH WILL CONT TO MONITOR ACCORDINGLY.
[2018-11-16] MEDS: INSULIN REGULAR, HUMAN 100 UNIT/ML 3 ML VIAL SQ PRN (21:42)
[2018-11-17 04:00] VITALS: BP 98/53
[2018-11-17 07:03] LABS: BASOPHILS # (AUTO) 0.1 /CMM (0.0-0.2); BASOPHILS % (AUTO) 1.1 % (0.0-2.0); EOSINOPHILS % (AUTO) 4.9 % (0.0-6.0); HEMATOCRIT 35 % (39-51); HEMOGLOBIN 11.9 g/dL (13.5-17.5); LYMPHOCYTES # (AUTO) 2.2 /CMM (0.8-4.8); LYMPHOCYTES % (AUTO) 22.4 % (20.0-44.0); MEAN CORPUSCULAR HGB CONC 34 g/dl (31.0-36.0); MEAN CORPUSCULAR VOLUME 93 fL (80-96); MONOCYTES % (AUTO) 9.5 % (2.0-12.0); NEUTROPHILS # (AUTO) 6.2 /CMM (1.8-8.9); NEUTROPHILS % (AUTO) 62.1 % (43.0-81.0); PLATELET COUNT (AUTO) 144 /CMM (150-450); RED BLOOD CELL COUNT(AUTO) 3.81 MIL/uL (4.5-6.0)
[2018-11-17] MEDS: BLOOD SUGAR DIAGNOSTIC 1 EACH STRIP IN SCH ×4 (07:30→22:47)
--- NOTE | 2018-11-17 07:30 | NUR ---
PATIENT RESTING IN ROOM - EYES CLOSED- CHEST RISING AND FALLING- NO S/S OD DISTRESS- SAFETY PRECAUTIONS IN PLACE- RECEIVED BEDSIDE SBAR- WILL CONTINUE TO MONITOR REPORT AND RECORD
[2018-11-17 08:00] VITALS: BP 116/32
[2018-11-17 08:30] LABS: CALCIUM, SERUM 9.1 mg/dL (8.5-10.1)
[2018-11-17 08:33] LABS: CREATININE 12.3 mg/dL (0.6-1.3); POTASSIUM 7.1 mmol/L (3.5-5.1)
[2018-11-17] MEDS: MIDODRINE HCL (5MG) 5 MG TABLET PO SCH ×3 (09:55→16:40)
[2018-11-17] MEDS: LACTOBACILLUS RHAMNOSUS GG 1 EACH CAP.SPRINK PO SCH ×2 (09:55→16:39)
[2018-11-17] MEDS: NYSTATIN TOP POWDER 15 GM BOTTLE TP SCH ×2 (09:57→15:13)
[2018-11-17] MEDS: HYDROGEL DRESSING 90 GM TUBE TP SCH (09:57)
[2018-11-17 12:00] VITALS: BP 114/57
--- NOTE | 2018-11-17 12:00 | NUR ---
patient currently resting in room - pain management is effective-we have discussed patient stoma and care and various options for bag- the stoma wound nurse suggests a one piece bag- a few samples were left and we currently have a wound career services assistant looking for more bags - the patient states that he was told by the stoma specialist not use the paste and/or the powder- rather only use the one piece provided by the stoma nurse- currently we are using what we have supplies for which is a 2-piece- will continue, we will monitor output and skin -continue to monitor report and record
[2018-11-17] MEDS: INSULIN REGULAR, HUMAN 100 UNIT/ML 3 ML VIAL SQ PRN ×2 (12:44→17:56)
[2018-11-17] MEDS: HYDROCODONE/APAP 10/325MG 1 EA TABLET PO PRN ×3 (12:55→22:48)
[2018-11-17] MEDS ORDERED: SODIUM POLYSTYRENE SULFONATE 15 G/60 ML BOTTLE GT ONE (14:30)
[2018-11-17 16:00] VITALS: BP 114/57
--- NOTE | 2018-11-17 16:08 | NUR ---
patient resting in bed- no complaints of pain - vitals stable - patient's colostomy bag is still in place- sr on the monitor - will continue to monitor report and record
--- NOTE | 2018-11-17 18:15 | NUR ---
the patients ileostomy bag has held thru the day- output has been at 3500cc - consistency watery to pasty to solid- safety precautions in place- will continue to monitor report and record - will provide bedside sbar to oncoming pm rn
[2018-11-17 20:00] VITALS: BP 111/43
[2018-11-18] VITALS: BP 134/51
[2018-11-18 04:00] VITALS: BP 122/67
--- NOTE | 2018-11-18 06:58 | NUR ---
CAN WASHER CAN WASHER SPOKE TO OSTOMY SPECIALIST YESTERDAY AFTERNOON TO DISCUSS HER CONSULT. PER GENA HERNANDEZ, WOCN, WE NEED TO ORDER DOMINIQUE CONVEXITY APPLIANCES ONE PIECE NUMBER [phone] OR [phone]. I CALLED [employer] AND ORDERED #[id number] PRODUCT YESTERDAY FROM [employer]. THESE WILL SHOULD BE ARRIVING BY FRIDAY OR FRIDAY. THE OSTOMY NURSE WAS ABLE TO GIVE MY SOME SAMPLES FOR THIS PATIENT WHICH PATIENT NOW HAS AT BEDSIDE. PER OSTOMY NURSE RECOMMENDATIONS, NURSING SHOULD WASH THE ZURI STOMA SITE WITH SOAP AND WATER, DRY WELL, APPLY SKIN PREP TO THE ZURI STOMA SITE, APPLY SMALL AMOUNT OF STOMA POWDER TO THE DENUDED(REDDENED/IRRITATED) SKIN, FANNING THE EXCESS POWDER OFF THE SITE, APPLY THE ONE PIECE POUCH. THERE IS NO NEED FOR STOMA PASTE WITH THIS APPLIANCE PATIENT HAS NO SKIN FOLDS AND ABDOMEN IS FLAT. CAN WASHER DISCUSSED THIS WITH THE NURSING STAFF THIS AM. WILL CONTINUE TO MONITOR IF PATIENT SHOULD NEED FOLLOW UP WITH SPECIALIST WOCN.
--- NOTE | 2018-11-18 07:30 | NUR ---
MARY ABREU RECEIVED PATIENT IN BED, A/A/OX4, ABLE TO MAKE NEEDS KNOWN. NOT ON ANY FORM OD DISTRESS. ON ROOM AIR, BREATHING UNLABORED, WITH COMPLAINTS OF PAIN ALL OVER, PAIN WITH SCALE OF 7-8/10 BUT DENIES CHEST PAIN; WILL ADMINISTER PRN PAIN MEDICATION. PATIENT SINUS RHYTHM ON THE MONITOR WITH ST ELEVATION WITH HR ON THE 70'S. PICC LINE NOTED ON THE SIRIA: IN PLACE AND PATENT ON FLUSHING: SL. COLOSTOMY BAG IN PLACE AND INTACT. PATIENT ENCOURAGE TO VERBALIZE FEELINGS AND CONCERNS, CALL FOR HELP/ ASSISTANCE, CALL LIGHT PLACED WITHIN REACH. SAFETY MEASURES OBSERVED AND MAINTAINED. WILL CONTINUE TO MONITOR PATIENT AND ANTICIPATE NEEDS
[2018-11-18 08:00] VITALS: BP 83/44
--- NOTE | 2018-11-18 08:00 | NUR ---
RN NOTES PER MARY ZAMORA (CHARGE NURSE) SHE WAS ABLE TO TALK AND INFORM DR. GHOSH THAT PATIENT HAS NOT YET SEEN BY VASCULAR SURGEON AND ABOUT POTASSIUM LEVEL AT 6.4. NO ORDER AT THIS TIME
[2018-11-18 08:26] LABS: POTASSIUM 6.4 mmol/L (3.5-5.1)
[2018-11-18 08:27] LABS: CREATININE 14.2 mg/dL (0.6-1.3)
[2018-11-18] MEDS: BLOOD SUGAR DIAGNOSTIC 1 EACH STRIP IN SCH ×4 (08:43→21:12)
[2018-11-18] MEDS: LACTOBACILLUS RHAMNOSUS GG 1 EACH CAP.SPRINK PO SCH ×2 (08:45→16:41)
[2018-11-18] MEDS: HYDROCODONE/APAP 10/325MG 1 EA TABLET PO PRN (08:45)
[2018-11-18] MEDS: INSULIN REGULAR, HUMAN 100 UNIT/ML 3 ML VIAL SQ PRN ×4 (08:45→21:13)
[2018-11-18] MEDS: MIDODRINE HCL (5MG) 5 MG TABLET PO SCH ×3 (08:46→16:42)
[2018-11-18] MEDS: HYDROGEL DRESSING 90 GM TUBE TP SCH (08:46)
[2018-11-18] MEDS: NYSTATIN TOP POWDER 15 GM BOTTLE TP SCH ×2 (08:46→16:42)
--- NOTE | 2018-11-18 11:00 | NUR ---
RN NOTES PATIENT'S WITH COMPLAINTS OF NOT FEELING WELL AND CLAIMS THAT HE'S GONNA ON HERE. WITH THREATS TO CHECK OUT HIMSELF AND GO TO OTHER HOSPITAL OR TO CALL [address] GHOSH WHO CLAIMED THAT HE TALKED TO DR. CARDENAS WHO ORDERED IJ TO BE INSERTED AND TO SCHEDULE PATIENT FOR DIALYSIS TODAY. ALSO WITH REQUEST FOR EQUIPMENT AT BEDSIDE. ORDER NOTED AND CARRIED OUT
[2018-11-18 12:00] VITALS: BP 133/61
[2018-11-18] MEDS ORDERED: MORPHINE SULFATE INJ 2 MG/ML DISP.SYRIN IV ONE (14:00)
[2018-11-18 16:00] VITALS: BP 134/67
[2018-11-18] MEDS: HYDROCODONE/APAP 5/325MG 1 EACH TABLET PO PRN ×2 (16:47→21:37)
[2018-11-18] MEDS: TOBRAMYCIN 80 MG in IV D5W 50 ML IV PRN (19:00)
--- NOTE | 2018-11-18 19:30 | NUR ---
USER EXPERIENCE DEVELOPER NOTE: RECEIVED PT SITTING AT THE EDGE OF THE BED, EATING DINNER. PT IS ALERT AND ORIENTED X3, ABLE TO MAKE NEEDS KNOWN. NO APPARENT DISTRESS NOTED. NO COMPLAINTS OF PAIN OR DISCOMFORT AT THIS TIME. ON ROOM AIR, BREATHING EVEN AND UNLABORED WITH NORMAL RESPIRATIONS. ON TELE MONITOR SINUS RHYTHM HR 74BPM. RIGHT UPPER ARM PICC LINE INTACT AND FLUSHING WELL. ILEOSTOMY INTACT AND PATENT. KEPT CLEAN, DRY AND COMFORTABLE. CALL LIGHT PLACED WITHIN REACH. SAFETY AND FALL PRECAUTIONS OBSERVED AND MAINTAINED. WILL CONTINUE TO MONITOR PT.
--- NOTE | 2018-11-18 19:30 | NUR ---
RN NOTES ENDORSED PATIENT FOR CONTINUITY OF CARE. NOT ON ANY FORM OF DISTRESS. ALL NURSING NEEDS ATTENDED AND MET. SAFETY MEASURES IN PLACE AT ALL TIMES. CALL LIGHT PLACED WITHIN REACH
[2018-11-18 20:00] VITALS: BP 136/75
[2018-11-19] VITALS: BP 117/64
[2018-11-19 04:00] VITALS: BP 96/69
[2018-11-19 06:36] LABS: CALCIUM, SERUM 9.1 mg/dL (8.5-10.1)
[2018-11-19 06:37] LABS: CREATININE 11.9 mg/dL (0.6-1.3)
[2018-11-19 06:39] LABS: POTASSIUM 6.5 mmol/L (3.5-5.1)
--- NOTE | 2018-11-19 06:39 | NUR ---
ARCHITECTURAL REPRESENTATIVE NOTE: NO CHANGES NOTED THROUGHOUT THE SHIFT. NO APPARENT DISTRESS NOTED. DENIES PAIN AND DISCOMFORT AT THIS TIME. ON ROOM AIR, NO SOB NOTED. ILEOSTOMY INTACT, CHANGED BAG 2X THROUGHOUT THE SHIFT. SINUS RHYTHM ON TELE MONITOR HR 84BPM. KEPT CLEAN, DRY AND COMFORTABLE. CALL LIGHT PLACED WITHIN REACH. SAFETY AND FALL PRECAUTIONS OBSERVED AND MAINTAINED. WILL ENDORSE TO DAY SHIFT RN FOR CONTINUITY OF CARE.
--- NOTE | 2018-11-19 06:47 | NUR ---
MS RN NOTE: NO CHANGES NOTED THROUGHOUT THE SHIFT. NO APPARENT DISTRESS NOTED. COMPLAINED OF PAIN ON LEFT ARM 09/30, [facility]CO PRN GIVEN ORDERED. IV ON RIGHT WRIST #22 INTACT AND PATENT, FLUSHING WELL. FERNANDEZ CATH INTACT, DRAINED 1000ML OF URINE OUTPUT. KEPT CLEAN, DRY AND COMFORTABLE. CALL LIGHT PLACED WITHIN REACH. SAFETY AND FALL PRECAUTIONS OBSERVED AND MAINTAINED. WILL ENDORSE TO DAY SHIFT RN FOR CONTINUITY OF CARE Addendum: 11/19/18 at 2120 by MAIRA BRADY RN WRONG PT
[2018-11-19 08:00] VITALS: BP 94/48
--- NOTE | 2018-11-19 08:00 | NUR ---
MARKETING FINANCE SPECIALIST NOTES RECEIVED PATIENT IN BED AND AND ALERT X4. PATIENT IS ABLE TO MAKE CONVERSATION AND MAKE NEEDS KNOWN. PATIENT IS ON ROOM AIR WITH NO SIGN OF SOB NOTED AT THIS TIME. PATIENTS SINUS RHYTHM HAS ELEVATED T WAVES WITH HR IN THE NORM AND WILL CONTINUE TO MONITOR. PATIENT HAS PICC LINE IN SIRIA IN PLACE AND PATENT AND A JESÚS SHUNT NOT FUNCTIONING. PATIENT HAS LEFT HD CATH. PATIENT HAS A ILEOSTOMY WITH SLIGHT PINKNESS AROUND THE STOMA AND GROIN AREA. PATIENT ALSO HAD A RIGHT HAND DORSAL WOUND NO SIGN OF INFECTION. PATIENT IS AMBULATORY. SAFETY MEASURES OBSERVED AND MAINTAINED. ALL BELONGINGS MADE EASILY REACH. CALL LIGHT PLACED WITHIN REACH.WILL CONTINUE TO MONITOR PATIENT AND ANTICIPATE NEEDS.
[2018-11-19] MEDS: BLOOD SUGAR DIAGNOSTIC 1 EACH STRIP IN SCH ×4 (08:22→21:04)
[2018-11-19] MEDS: HYDROCODONE/APAP 5/325MG 1 EACH TABLET PO PRN ×2 (09:16→18:38)
[2018-11-19] MEDS: LACTOBACILLUS RHAMNOSUS GG 1 EACH CAP.SPRINK PO SCH ×2 (09:55→18:29)
[2018-11-19] MEDS: MIDODRINE HCL (5MG) 5 MG TABLET PO SCH ×3 (09:59→18:29)
[2018-11-19] MEDS: NYSTATIN TOP POWDER 15 GM BOTTLE TP SCH ×2 (10:03→18:29)
[2018-11-19] MEDS: HYDROGEL DRESSING 90 GM TUBE TP SCH (10:09)
--- NOTE | 2018-11-19 11:05 | NUR ---
MS RN NOTES PER DR. CARDENAS, PATIENT NEEDS PERMACATH PLACEMENT PRIOR TO DISCHARGE. HE ALREADY TEXTED DR. ARELLANO. CHARGE NURSE AND MANAGER OF COMPLIANCE AWARE.
--- NOTE | 2018-11-19 11:30 | NUR ---
RECRUITER MANAGER NOTES HOLD DC PER DR. SHIVA GHOSH. DR. ARELLANO TO SEE PATIENT FOR PERMACATH PLACEMENT
[2018-11-19 12:00] VITALS: BP 130/44
[2018-11-19] MEDS: INSULIN REGULAR, HUMAN 100 UNIT/ML 3 ML VIAL SQ PRN ×2 (12:36→21:36)
--- NOTE | 2018-11-19 14:00 | NUR ---
MS RN NOTES PATIENT RIPPED OFF HIS COLOSTOMY BAG. PATIENT APPEARS IF HE DOES NOT CARE AT ALL. NEEDS TO REPLACE UNIT PER WOUND CARE INSTRUCTION. LAST BAG AVAILABLE. CHECKED WITH [employer] AND PURCHASING AND ACCORDING TO THEM, SUPPLIES WILL COME TOMORROW BETY MONTENEGRO AND CHARGE NURSE AWARE.
--- NOTE | 2018-11-19 15:20 | NUR ---
TRANSPORTATION SALES CONSULTANT NOTES PATIENT HAS PULLED OUT LEADS AND HAS REFUSED TO HAVE THEM ON.
[2018-11-19 16:00] VITALS: BP 140/72
--- NOTE | 2018-11-19 17:30 | NUR ---
TANK TRUCK DRIVER NOTES HD NURSE AT BEDSIDE. UNABLE TO DO HD, LEFT IJ CLOGGED, DR. CARDENAS ORDERED ALTEPASE 2 MG PER HD NURSE.
[2018-11-19] MEDS ORDERED: ALTEPLASE CATHFLO 2 MG/VIAL XX ONE ×2 (18:00→18:30)
--- NOTE | 2018-11-19 18:00 | NUR ---
MS RN CLOSING NOTE: NO CHANGES NOTED THROUGHOUT THE SHIFT. NO APPARENT DISTRESS NOTED. COMPLAINED OF PAIN ON LEFT ARM 8/10, NORCO PRN GIVEN TWICE ORDERED. IV ON RIGHT WRIST #22 INTACT AND PATENT, FLUSHING WELL. . KEPT CLEAN, DRY AND COMFORTABLE. CALL LIGHT PLACED WITHIN REACH. SAFETY AND FALL PRECAUTIONS OBSERVED AND MAINTAINED.
[2018-11-19 20:00] VITALS: BP 160/81
--- NOTE | 2018-11-19 20:17 | NUR ---
MS RN OPENING NOTES PT SITTING AT BEDSIDE. NO ACUTE DISTRESS NOTED. WILL EMPTY COLOSTOMY BAG. PT ALERT AND ORIENTENTED, VITALS STABLE. NO SIGNS OF ACUTE DISTRESS. WILL CARRY OUT PLAN OF CARE. BED IN LOCKED LOW POSITION AND SAFETY PRECATUIONS IN PLACE. .
[2018-11-20] VITALS: BP 101/65
[2018-11-20] MEDS: HYDROCODONE/APAP 5/325MG 1 EACH TABLET PO PRN ×3 (03:56→17:55)
[2018-11-20 04:00] VITALS: BP 109/80
[2018-11-20 07:09] LABS: CALCIUM, SERUM 9.5 mg/dL (8.5-10.1)
[2018-11-20 07:10] LABS: CREATININE 12.8 mg/dL (0.6-1.3)
[2018-11-20 07:19] LABS: POTASSIUM 7.1 mmol/L (3.5-5.1)
--- NOTE | 2018-11-20 07:23 | NUR ---
MS RN CLOSING NOTES: JUST RECIEVED PHONE CALL FROM LAB FROM [facility] OF A CRITICAL LAB VALUE OF 7.1 - WILL ENDORSE TO AM NURSE ZOE TO NOTIFY MD AND CARRY OUT PLAN OF CARE. NO APPARENT DISTRESS NOTED. COMPLAINTS OF PAIN 8/10, LAST NORCO PRN GIVEN ONCE 0500. ALL NEEDS MET. WOUND CARE DONE. ILESTROMY EMPTIED AND 650. IV ON RIGHT WRIST #22 INTACT AND PATENT, FLUSHING WELL. . KEPT CLEAN, DRY AND COMFORTABLE. CALL LIGHT PLACED WITHIN REACH. SAFETY AND FALL PRECAUTIONS OBSERVED AND MAINTAINE Addendum: 11/20/18 at 0741 by DAVIDE KRISHNAMURTHY RN MS RN CLOSING NOTES: JUST RECIEVED PHONE CALL FROM LAB FROM [facility] OF A CRITICAL LAB VALUE OF 7.1 - WILL ENDORSE TO AM NURSE ENRIQUEZ TO NOTIFY MD AND CARRY OUT PLAN OF CARE. NO APPARENT DISTRESS NOTED. COMPLAINTS OF PAIN 8/10, LAST NORCO PRN GIVEN ONCE 0500. ALL NEEDS MET. WOUND CARE DONE. ILESTROMY EMPTIED AND 650. IV ON RIGHT WRIST #22 INTACT AND PATENT, FLUSHING WELL. . KEPT CLEAN, DRY AND COMFORTABLE. CALL LIGHT PLACED WITHIN REACH. SAFETY AND FALL PRECAUTIONS OBSERVED AND KEPT IN PLACE. ENDORSED WOUND INSTRUCTIONS TO AM NURSE WELL THE DIALYSIS TO BE DONE THIS MORNING AND TO FOLLOW UP ALL CHANGES WITH THE MD.
--- NOTE | 2018-11-20 07:40 | NUR ---
rn note spoke with dr Babak Edwards's office [place] regarding pt's potassium 7.1 this morning. no call back yet from dr edwards.
[2018-11-20 08:00] VITALS: BP 144/40
[2018-11-20] MEDS: BLOOD SUGAR DIAGNOSTIC 1 EACH STRIP IN SCH ×4 (08:25→22:00)
--- NOTE | 2018-11-20 08:25 | NUR ---
rn note Kaye, hd nurse at bedside began hd now, aware about pt's potassium level. Still no call back from Dr Acharya.
[2018-11-20] MEDS: MIDODRINE HCL (5MG) 5 MG TABLET PO SCH ×3 (08:26→17:48)
[2018-11-20] MEDS: NYSTATIN TOP POWDER 15 GM BOTTLE TP SCH ×2 (08:27→17:48)
[2018-11-20] MEDS: LACTOBACILLUS RHAMNOSUS GG 1 EACH CAP.SPRINK PO SCH ×2 (08:27→17:47)
[2018-11-20] MEDS: HYDROGEL DRESSING 90 GM TUBE TP SCH (08:27)
[2018-11-20] MEDS ORDERED: SODIUM POLYSTYRENE SULFONATE 15 G/60 ML BOTTLE PO ONE (09:30)
--- NOTE | 2018-11-20 10:00 | NUR ---
RN NOTE PER DR GHOSH TO HOLD KAYAXALATE ADMINISTRATION, PT GETTING HD AT THIS TIME. AWARE.
[2018-11-20] MEDS: INSULIN REGULAR, HUMAN 100 UNIT/ML 3 ML VIAL SQ PRN ×2 (12:58→17:49)
[2018-11-20] MEDS: TOBRAMYCIN 80 MG in IV D5W 50 ML IV PRN (15:29)
[2018-11-20 16:00] VITALS: BP 129/45
[2018-11-20 20:00] VITALS: BP 165/60
[2018-11-21] MEDS: HYDROCODONE/APAP 10/325MG 1 EA TABLET PO PRN ×3 (00:04→22:42)
[2018-11-21] MEDS: INSULIN REGULAR, HUMAN 100 UNIT/ML 3 ML VIAL SQ PRN ×4 (00:07→21:21)
[2018-11-21 04:00] VITALS: BP 140/71
--- NOTE | 2018-11-21 07:15 | NUR ---
RN NOTES PATIENT LEFT FOR PROCEDURE IN STABLE CONDITION.
[2018-11-21] MEDS ORDERED: ANESTHESIA TRAY IN PYXIS 1 EA TRAY MC ONE (07:30)
[2018-11-21 07:31] LABS: CALCIUM, SERUM 9.3 mg/dL (8.5-10.1)
[2018-11-21] MEDS ORDERED: HEPARIN SODIUM, PORCINE 1,000 UNIT/ML VIAL ONE (07:31)
[2018-11-21] MEDS ORDERED: LIDOCAINE HCL/MPF 1% 30 ML VIAL IJ ONE (07:31)
[2018-11-21] MEDS ORDERED: FAMOTIDINE/PF INJ 20 MG/2 ML VIAL IV ONE (07:33)
[2018-11-21] MEDS ORDERED: FENTANYL PF 100MCG/2ML AMPUL ONE (07:33)
[2018-11-21 07:56] LABS: CREATININE 11.2 mg/dL (0.6-1.3); POTASSIUM 6.4 mmol/L (3.5-5.1)
[2018-11-21 09:00] VITALS: BP 107/43
--- NOTE | 2018-11-21 09:00 | NUR ---
RN NOTES RECEIVED PATIENT ALERT, AWAKE, ORIENTED X3 WITH BREATHING NORMAL, EVEN AND UNLABORED. NO SOB NOTED. ON ROOM AIR, SATURATING WELL. SIRIA PICC LINE IS PATENT AND INTACT. LEONEL CHEST HD CATH INTACT, NO BLEEDING NOTED. KEPT CLEAN, DRY AND COMFORTABLE. ALL NEEDS ATTENDED. SAFETY MEASURE OBSERVED. CALL LIGHT WITH IN REACH. WILL CONT TO MONITOR.
[2018-11-21] MEDS: MIDODRINE HCL (5MG) 5 MG TABLET PO SCH ×3 (09:36→17:33)
[2018-11-21] MEDS: LACTOBACILLUS RHAMNOSUS GG 1 EACH CAP.SPRINK PO SCH ×2 (09:36→17:34)
[2018-11-21] MEDS: NYSTATIN TOP POWDER 15 GM BOTTLE TP SCH ×2 (09:38→17:34)
[2018-11-21] MEDS: HYDROGEL DRESSING 90 GM TUBE TP SCH (09:38)
[2018-11-21] MEDS: BLOOD SUGAR DIAGNOSTIC 1 EACH STRIP IN SCH ×4 (09:41→21:21)
[2018-11-21 14:42] LABS: CALCIUM, SERUM 8.9 mg/dL (8.5-10.1); POTASSIUM 4.6 mmol/L (3.5-5.1)
[2018-11-21 14:50] LABS: CREATININE 8.7 mg/dL (0.6-1.3)
[2018-11-21 16:00] VITALS: BP 117/64
[2018-11-21] MEDS: SODIUM BICARBONATE 650 MG TABLET PO SCH (17:33)
--- NOTE | 2018-11-21 19:16 | NUR ---
RN NOTES PATIENT ENDORSED TO NEXT SHIFT IN STABLE CONDITION FOR CONTINUITY OF CARE. WILL CONT TO MONITOR.
[2018-11-21 20:00] VITALS: BP 120/76
[2018-11-22 04:00] VITALS: BP 127/55
[2018-11-22 06:25] LABS: CALCIUM, SERUM 9.4 mg/dL (8.5-10.1)
[2018-11-22 06:44] LABS: CREATININE 10.5 mg/dL (0.6-1.3)
--- NOTE | 2018-11-22 07:00 | NUR ---
PER REPORT FROM GENARO HERNANDEZ, VESTA ADAMS REACHED FOR CRIT CREATININE LEVEL. NO CALL BACK RECEIVED
[2018-11-22] MEDS: BLOOD SUGAR DIAGNOSTIC 1 EACH STRIP IN SCH ×4 (07:07→22:58)
[2018-11-22] MEDS: INSULIN REGULAR, HUMAN 100 UNIT/ML 3 ML VIAL SQ PRN ×4 (07:08→23:16)
--- NOTE | 2018-11-22 07:20 | NUR ---
MS MARY OPENING RECEIVED PATIENT A/OX4. NO ACUTE DISTRESS OR SOB NOTED. ON ROOM AIR, SPO2 WNL. DENIES CHEST PAIN. ILEOSTOMY POUCH INTACT. R HAND DRESSING C/D/I. L CHEST WALL PERMA CATH AND SIRIA PICC LINE C/D/I, PATENT, NO S/S BLEEDING. PATIENT ABLE TO MAKE NEEDS KNOWN. AMBULATORY, NON SKID SOCKS ON. CALL LIGHT WITHIN REACH. WILL CONTINUE TO MONITOR
[2018-11-22] MEDS: TOBRAMYCIN 80 MG in IV D5W 50 ML IV PRN (07:36)
[2018-11-22 08:00] VITALS: BP 120/68
[2018-11-22] MEDS: MIDODRINE HCL (5MG) 5 MG TABLET PO SCH ×3 (08:39→16:11)
[2018-11-22] MEDS: LACTOBACILLUS RHAMNOSUS GG 1 EACH CAP.SPRINK PO SCH ×2 (08:39→16:04)
[2018-11-22] MEDS: SODIUM BICARBONATE 650 MG TABLET PO SCH ×2 (08:39→16:05)
[2018-11-22] MEDS: NYSTATIN TOP POWDER 15 GM BOTTLE TP SCH ×2 (08:53→16:04)
[2018-11-22] MEDS: HYDROGEL DRESSING 90 GM TUBE TP SCH (08:54)
[2018-11-22] MEDS: HYDROCODONE/APAP 10/325MG 1 EA TABLET PO PRN ×3 (09:00→23:07)
[2018-11-22 16:00] VITALS: BP 145/82
--- NOTE | 2018-11-22 19:00 | NUR ---
MS RN CLOSING NO CHANGE IN CONDITION. ENDORSED TO NIGHT RN FOR SADIA.
--- NOTE | 2018-11-22 19:30 | NUR ---
MS RN OPENING NOTES, RECEIVED PATIENT A/OX4. NO ACUTE DISTRESS OR SOB NOTED. ON ROOM AIR, SPO2 WNL. ILEOSTOMY POUCH INTACT. R HAND DRESSING C/D/I. L CHEST WALL PERMA CATH AND SIRIA PICC LINE C/D/I, PATENT, NO S/S BLEEDING. PATIENT ABLE TO MAKE NEEDS KNOWN. AMBULATORY, CALL LIGHT WITHIN REACH. WILL CONTINUE TO MONITOR
[2018-11-23] VITALS: BP 118/58
[2018-11-23 04:00] VITALS: BP 128/66
--- NOTE | 2018-11-23 06:55 | NUR ---
MS RN CLOSING NOTES, PATIENT IS IN BED A/OX4. NO ACUTE DISTRESS OR SOB NOTED. ON ROOM AIR, SPO2 WNL. ILEOSTOMY POUCH INTACT. R HAND DRESSING C/D/I. L CHEST WALL PERMA CATH AND SIRIA PICC LINE C/D/I, PATENT. NO S/S BLEEDING. PATIENT ABLE TO MAKE NEEDS KNOWN. AMBULATORY, CALL LIGHT WITHIN REACH. WILL ENDORSE THE PATIENT TO AM NURSE FOR SADIA.
[2018-11-23 07:19] LABS: CALCIUM, SERUM 9.2 mg/dL (8.5-10.1); POTASSIUM 5.2 mmol/L (3.5-5.1)
[2018-11-23 07:20] LABS: CREATININE 10.9 mg/dL (0.6-1.3)
--- NOTE | 2018-11-23 07:20 | NUR ---
MS RN OPENING NOTES RECEIVED REPORT AT BEDSIDE. PATIENT A/OX4. NO ACUTE RESPIRATORY DISTRESS OR SOB NOTED. ON ROOM AIR, SATURATING WELL. DENIES ANY PAIN AT THIS TIME. ILEOSTOMY POUCH INTACT. L CHEST WALL PERMA CATH AND SIRIA PICC LINE PATENT, INTACT AND FLUSHED WELL. PATIENT ABLE TO MAKE NEEDS KNOWN. AMBULATORY, NON SKID SOCKS ON. SIDE RAILS UP X2, BED LOCKED AND AT THE LOWEST POSITION. CALL LIGHT WITHIN REACH. WILL CONTINUE TO MONITOR
[2018-11-23 08:00] VITALS: BP 104/45
[2018-11-23] MEDS: BLOOD SUGAR DIAGNOSTIC 1 EACH STRIP IN SCH ×4 (08:00→22:47)
[2018-11-23] MEDS: MIDODRINE HCL (5MG) 5 MG TABLET PO SCH ×3 (08:54→16:18)
[2018-11-23] MEDS: LACTOBACILLUS RHAMNOSUS GG 1 EACH CAP.SPRINK PO SCH ×2 (08:55→16:17)
[2018-11-23] MEDS: SODIUM BICARBONATE 650 MG TABLET PO SCH ×2 (08:55→16:17)
[2018-11-23] MEDS: HYDROCODONE/APAP 10/325MG 1 EA TABLET PO PRN ×2 (08:56→16:24)
[2018-11-23] MEDS: INSULIN REGULAR, HUMAN 100 UNIT/ML 3 ML VIAL SQ PRN ×4 (08:58→22:46)
[2018-11-23] MEDS: HYDROGEL DRESSING 90 GM TUBE TP SCH (08:59)
[2018-11-23] MEDS: NYSTATIN TOP POWDER 15 GM BOTTLE TP SCH ×2 (09:06→16:19)
--- NOTE | 2018-11-23 11:00 | NUR ---
MS RN NOTE HEMODIALYSES DONE. PT VS ARE STABLE. WILL CONT' TO MONITOR.
[2018-11-23 16:00] VITALS: BP 108/57
--- NOTE | 2018-11-23 19:56 | NUR ---
MS RN CLOSING NOTES, PATIENT IS IN BED A/OX4. NO ACUTE RESPIRATORY DISTRESS OR SOB NOTED. ON ROOM AIR, SATURATING WELL. ILEOSTOMY POUCH INTACT. ILEOSTOMY BAG EMPTIED 8 TIMES. PAIN MED GIVEN. ALL NEEDS ATTENDANT. PATIENT ABLE TO MAKE NEEDS KNOWN. GOT THE TOBRAMYCIN RANDOM REPORT FROM THE LAB AND ENVIRONMENTAL COORDINATOR NURSE MADE AWARE. AMBULATORY, BED LOW AND LOCKED, SIDE RAILS UPX2, CALL LIGHT WITHIN REACH. WILL ENDORSE TO THE ENVIRONMENTAL COORDINATOR NURSE FOR SADIA.
[2018-11-23 20:00] VITALS: BP 134/25
[2018-11-23] MEDS: TOBRAMYCIN 80 MG in IV D5W 50 ML IV PRN (20:03)
[2018-11-23 20:39] VITALS: BP 100/75
[2018-11-24] MEDS: HYDROCODONE/APAP 10/325MG 1 EA TABLET PO PRN ×3 (01:26→17:47)
[2018-11-24 04:00] VITALS: BP 100/81
[2018-11-24] MEDS: HYDROCODONE/APAP 5/325MG 1 EACH TABLET PO PRN (04:04)
[2018-11-24 04:12] VITALS: BP 100/81
--- NOTE | 2018-11-24 06:43 | NUR ---
MS RN CLOSING NOTES, PATIENT IS IN BED A/OX4. NO ACUTE RESPIRATORY DISTRESS OR SOB NOTED. ON ROOM AIR, SATURATING WELL. ILEOSTOMY POUCH INTACT. ILEOSTOMY BAG EMPTIED 8 TIMES. PAIN MED GIVEN. ALL NEEDS ATTENDANT. PATIENT ABLE TO MAKE NEEDS KNOWN. PATIENT IS AMBULATORY, BED LOW AND LOCKED, SIDE RAILS UPX2, CALL LIGHT WITHIN REACH. WILL ENDORSE TO THE AM NURSE FOR SADIA.
[2018-11-24 08:00] VITALS: BP 93/44
[2018-11-24] MEDS: BLOOD SUGAR DIAGNOSTIC 1 EACH STRIP IN SCH ×3 (08:00→17:45)
[2018-11-24] MEDS: INSULIN REGULAR, HUMAN 100 UNIT/ML 3 ML VIAL SQ PRN ×3 (08:09→17:47)
[2018-11-24] MEDS: MIDODRINE HCL (5MG) 5 MG TABLET PO SCH ×3 (08:10→17:00)
[2018-11-24] MEDS: SODIUM BICARBONATE 650 MG TABLET PO SCH ×2 (08:10→17:00)
[2018-11-24] MEDS: LACTOBACILLUS RHAMNOSUS GG 1 EACH CAP.SPRINK PO SCH ×2 (08:10→17:00)
[2018-11-24] MEDS: HYDROGEL DRESSING 90 GM TUBE TP SCH (08:11)
[2018-11-24] MEDS: NYSTATIN TOP POWDER 15 GM BOTTLE TP SCH ×2 (08:11→17:00)
--- NOTE | 2018-11-24 15:15 | NUR ---
MARY DC NOTE REPORT GIVEN TO DAVID AT [facility]. A/OX4, NO ACUTE DISTRESS OR SOB. ON ROOM AIR. DENIES CHETS PAIN. ILEOSTOMY BAG INTACT, SENT WITH EXTRAS. R HAND WOUND CARE ENDORSED TO RN AT [facility]. PATIENT SENT WITH SIRIA PICC LINE D/T IV ABX, NO PERIPH IV AVAILABLE. L CHEST WALL PERMACATH INTACT, L UA AV SHUNT NOT IN USE, ENDORSED. NORCO AND INSULIN GIVEN BEFORE LEAVING. HD TODAY, 0 mL OUT. PATIENT EDUCATION REGARDING FOLLOW UP INFO GIVEN. NEPHRO, WOUND CARE + PCP. DIET EDUCATION. PAPERS SENT WITH PATIENT/AMBULANCE CREW. BELONGINGS CHECKLIST SIGNED. Addendum: 11/24/18 at 1938 by ASPEN NEWMAN RN NO WOUND CARE PICTURES TO BE TAKEN DUE TO PICTURES TAKEN ON 11/23
[2018-11-24 16:00] VITALS: BP_SYST 154; BP_DIAS 66; BP_DIAS 68
[2018-11-24 17:00] VITALS: BP 154/66
[2018-11-24] MEDS: TOBRAMYCIN 80 MG in IV D5W 50 ML IV PRN (17:01)
[2018-11-24] MEDS ORDERED: Midodrine Hcl (5MG) PO (17:41)
[2018-11-24] MEDS ORDERED: SODI650T PO (17:41)
[2018-11-24] MEDS ORDERED: TOBR60PI2 IV (17:41)
== END 2018-11-24 18:18 | DRG 628 ==
LOC: ER 13:51 → TELE-TD 16:12 → MEDSG1 11-05 09:30 → TELE1 11-10 07:45 → TELE-TD 11-10 14:54 → ICU 11-10 15:34 → TELE-TD 11-12 10:23 → TELE1 11-12 10:25 → MEDSG1 11-13 08:30 → TELE1 11-17 14:10 → MEDSG1 11-18 08:35 → TELE1 11-18 08:37 → MEDSG1 11-19 20:43
PROVIDERS: ADMIT Nurse Practitioner Acute Care; ATTEND Nurse Practitioner Acute Care
PROC: 0LB70ZZ Excision of Right Hand Tendon, Open Approach (ICD-10-PCS; principal; 2018-11-05)
PROC: 5A1D70Z Performance of Urinary Filtration, Intermittent, Less than 6 Hours Per Day (ICD-10-PCS; principal; 2018-11-05)
PROC: 0LB70ZZ Excision of Right Hand Tendon, Open Approach (ICD-10-PCS; 2018-11-09)
PROC: 0LB70ZZ Excision of Right Hand Tendon, Open Approach (ICD-10-PCS; 2018-11-12)
PROC: 06HY33Z Insertion of Infusion Device into Lower Vein, Percutaneous Approach (ICD-10-PCS; 2018-11-12)
PROC: 0LB70ZZ Excision of Right Hand Tendon, Open Approach (ICD-10-PCS; 2018-11-16)
PROC: 02HV33Z Insertion of Infusion Device into Superior Vena Cava, Percutaneous Approach (ICD-10-PCS; 2018-11-18)
PROC: B548ZZA Ultrasonography of Superior Vena Cava, Guidance (ICD-10-PCS; 2018-11-18)
PROC: 0LB70ZZ Excision of Right Hand Tendon, Open Approach (ICD-10-PCS; 2018-11-19)
PROC: B518YZA Fluoroscopy of Superior Vena Cava using Other Contrast, Guidance (ICD-10-PCS; 2018-11-21)
PROC: 02HV33Z Insertion of Infusion Device into Superior Vena Cava, Percutaneous Approach (ICD-10-PCS; 2018-11-21)
PROC: 0JH63XZ Insertion of Tunneled Vascular Access Device into Chest Subcutaneous Tissue and Fascia, Percutaneous Approach (ICD-10-PCS; 2018-11-21)
PROC: 0LB70ZZ Excision of Right Hand Tendon, Open Approach (ICD-10-PCS; 2018-11-24)
DX: E87.5 Hyperkalemia (principal); A41.9 Sepsis, unspecified organism; N18.6 End stage renal disease; R65.21 Severe sepsis with septic shock; T82.868A Thrombosis due to vascular prosthetic devices, implants and grafts, initial encounter; I12.0 Hypertensive chronic kidney disease with stage 5 chronic kidney disease or end stage renal disease; L03.113 Cellulitis of right upper limb; I47.2 Ventricular tachycardia; L03.311 Cellulitis of abdominal wall; K94.13 Enterostomy malfunction; E87.1 Hypo-osmolality and hyponatremia; E87.2 Acidosis; E11.22 Type 2 diabetes mellitus with diabetic chronic kidney disease; E11.610 Type 2 diabetes mellitus with diabetic neuropathic arthropathy; E88.09 Other disorders of plasma-protein metabolism, not elsewhere classified; Y82.8 Other medical devices associated with adverse incidents; Y83.2 Surgical operation with anastomosis, bypass or graft as the cause of abnormal reaction of the patient, or of later complication, without mention of misadventure at the time of the procedure; Y83.8 Other surgical procedures as the cause of abnormal reaction of the patient, or of later complication, without mention of misadventure at the time of the procedure; D63.1 Anemia in chronic kidney disease; D69.6 Thrombocytopenia, unspecified; E83.42 Hypomagnesemia; E83.52 Hypercalcemia; F17.210 Nicotine dependence, cigarettes, uncomplicated; G89.29 Other chronic pain; I95.1 Orthostatic hypotension; K21.9 Gastro-esophageal reflux disease without esophagitis; L30.4 Erythema intertrigo; Z99.2 Dependence on renal dialysis; E83.39 Other disorders of phosphorus metabolism; L98.8 Other specified disorders of the skin and subcutaneous tissue; S61.401A Unspecified open wound of right hand, initial encounter; X58.XXXA Exposure to other specified factors, initial encounter; Y93.9 Activity, unspecified; Y92.129 Unspecified place in nursing home as the place of occurrence of the external cause; E83.9 Disorder of mineral metabolism, unspecified; Z79.4 Long term (current) use of insulin; E11.43 Type 2 diabetes mellitus with diabetic autonomic (poly)neuropathy; K31.84 Gastroparesis; N30.90 Cystitis, unspecified without hematuria; J44.9 Chronic obstructive pulmonary disease, unspecified; Z94.7 Corneal transplant status; E11.42 Type 2 diabetes mellitus with diabetic polyneuropathy; E11.65 Type 2 diabetes mellitus with hyperglycemia; Y73.8 Miscellaneous gastroenterology and urology devices associated with adverse incidents, not elsewhere classified; M10.9 Gout, unspecified
CPT/HCPCS: 36415; 71045-TC; 80048-TC; 80061-TC; 80202-TC; 82247-TC; 82248-TC; 82533; 82962-TC; 83605-TC; 83735-TC; 84100-TC; 84132-TC; 84443-TC; 85025-TC; 85610-TC; 86704; 86706; 87040-TC; 87070-TC; 87081-TC; 87186-TC; 87340; 90935-TC; A4216; A4217; A6248; A6403; C1750; G0378; J0610; J0690; J0692; J1644; J1815; J2270; J2405; J2543; J2704; J2765; J2997; J3010; J3260; J3370; J3490; J7030; J7040; J7042; J7050; J7060; P9047

== ENCOUNTER 2018-12-05 06:56 | Inpatient (IN) | payer BC, OTHER ==
[~2018-12-05] VITALS: Ht 177.8 cm; Wt 73.0 kg
[~2018-12-05 06:56] MED LIST changes: +ACET325T53 PO; +FOLI0.8T2 PO; -HYDR-3980 PO; -INSU100C10 SQ; +INSU100V3 SQ; -INSU100V7 SQ; +LACT1CAP57 PO; +LOPE2CAP PO; +MAGN400O21 PO; +MULT-447 PO; +Midodrine Hcl (5MG) PO; -POLY15DR40 EACHEYE; +SIME120L PO; +SODI650T PO; -TAPE100T2 PO; +TOBR60PI2 IV; +ZINC220C6 PO
--- NOTE | 2018-12-05 07:20 | NUR ---
SANTIAGO FROM [facility]. TO ER BED 9. AAOX4. NO RESP DISTRESS NOTED. BROUGHT IN FOR CLOGGED PERMA CATH ON HIS LEFT UPPER CHEST. PT WENT TO DIALYSIS YESTERDAY WHEN THE CATH WAS NOTED CLOGGED. PT DID NOT GET DIALYSIS YESTERDAY. HE GET DIALYSIS -. IV LING OBTAINED ON R WRIST 20G. BLOOD DRAWN AND GIVEN TO LABTECH AT BEDSIDE. AWAITING MD FOR EVAL.
[2018-12-05 07:29] LABS: BASOPHILS % (AUTO) 0.4 % (0.0-2.0); EOSINOPHILS % (AUTO) 4.2 % (0.0-6.0); HEMATOCRIT 35 % (39-51); HEMOGLOBIN 11.5 g/dL (13.5-17.5); LYMPHOCYTES # (AUTO) 2.5 /CMM (0.8-4.8); LYMPHOCYTES % (AUTO) 21.9 % (20.0-44.0); MEAN CORPUSCULAR HGB CONC 33 g/dl (31.0-36.0); MEAN CORPUSCULAR VOLUME 93 fL (80-96); MONOCYTES # (AUTO) 0.9 /CMM (0.1-1.30); MONOCYTES % (AUTO) 7.5 % (2.0-12.0); NEUTROPHILS # (AUTO) 7.5 /CMM (1.8-8.9); PLATELET COUNT (AUTO) 190 /CMM (150-450); WHITE BLOOD COUNT (AUTO) 11.3 K/uL (4.3-11.0)
[2018-12-05 07:34] LABS: CALCIUM, SERUM 9.1 mg/dL (8.5-10.1); CARBON DIOXIDE 13 mmol/L (21-32); CHLORIDE 93 mmol/L (98-107); POTASSIUM 5.6 mmol/L (3.5-5.1); SODIUM SERUM 128 mmol/L (136-145)
[2018-12-05 07:36] LABS: GLUCOSE 381 mg/dL (74-106)
[2018-12-05 07:37] LABS: CREATININE 12.3 mg/dL (0.6-1.3); UREA NITROGEN, BLOOD 89 mg/dL (7-18)
[2018-12-05 07:40] LABS: ALANINE AMINOTRANSFERASE 14 U/L (12-78); ALKALINE PHOSPHATASE 197 U/L (46-116); ASPARTATE AMINOTRANSFERASE 11 U/L (15-37); BILIRUBIN,DIRECT 0.1 mg/dL (0.0-0.2); BILIRUBIN,TOTAL 0.4 mg/dL (0.2-1.0); TOTAL PROTEIN, SERUM 7.1 g/dL (6.4-8.2)
[2018-12-05] MEDS ORDERED: ASCO500T9 PO (08:32)
[2018-12-05] MEDS ORDERED: NA P133E RC (08:32)
[2018-12-05] MEDS ORDERED: FOLI1TAB16 PO (08:32)
[2018-12-05] MEDS ORDERED: MAG30ORA PO (08:32)
[2018-12-05] MEDS ORDERED: MIDO5TAB PO (08:32)
[2018-12-05] MEDS ORDERED: ACET-2030 PO (08:32)
[2018-12-05] MEDS ORDERED: ONDA4TAB5 PO (08:32)
[2018-12-05] MEDS ORDERED: BISA10SU11 RC (08:32)
[2018-12-05] MEDS ORDERED: HYDR-4354 PO (08:32)
[2018-12-05] MEDS ORDERED: DOCU-141 PO (08:32)
[2018-12-05] MEDS ORDERED: LOPERAMIDE HCL (2 MG CAP) 2 MG CAPSULE PO PRN (10:00)
[2018-12-05] MEDS ORDERED: NA PHOS,M-B/NA PHOS,DI-BA 1 EA ENEMA RC PRN (10:00)
[2018-12-05] MEDS ORDERED: MAG HYDROX/AL HYDROX/SIMETH 30 ML UDC PO PRN ×2 (10:00)
[2018-12-05] MEDS ORDERED: BISACODYL SUPP (10 MG) 10 MG/SUPP.RECT SUPP.RECT RC PRN (10:00)
[2018-12-05] MEDS ORDERED: ACETAMINOPHEN 325 MG TABLET PO PRN ×2 (10:00)
[2018-12-05] MEDS ORDERED: Z GUARD REMEDY 2 OZ OINT TP PRN (10:00)
[2018-12-05] MEDS ORDERED: ZOLPIDEM TARTRATE 5 MG TABLET PO PRN (10:00)
[2018-12-05] MEDS ORDERED: MAGNESIUM HYDROXIDE 30 ML UDC PO PRN ×2 (10:00)
[2018-12-05] MEDS ORDERED: ONDANSETRON HCL/PF 4 MG/2 ML VIAL IVP PRN (10:00)
[2018-12-05] MEDS ORDERED: INSULIN REGULAR, HUMAN 100 UNIT/ML 3 ML VIAL SQ PRN (10:00)
[2018-12-05] MEDS ORDERED: HYDROCODONE/APAP 5/325MG 1 EACH TABLET PO PRN (10:00)
[2018-12-05 11:20] VITALS: BP 98/48
--- NOTE | 2018-12-05 11:22 | NUR ---
PATIENT TRANSFERRED TO [facility] IN STABLE CONDITION. REPORT GIVEN TO GUILLERMO HERNANDEZ. COLOSTOMY BAG EMPTIED.
[2018-12-05 11:30] VITALS: BP 98/50
[2018-12-05] MEDS ORDERED: ONDANSETRON 4 MG TAB.RAPDIS PO PRN (11:30)
--- NOTE | 2018-12-05 11:30 | NUR ---
RECEIVED PATIENT FROM ER VIA WHEELCHAIR. PATIENT CAME IN FOR MALFUNCTION OF HD CATH, MISSED HEMODIALYSIS YESTERDAY. PATIENT IS A/OX3, ABLE TO MAKE NEEDS KNOWN, AMBULATORY. ORIENTED PATIENT IN THE ROOM,TAUGHT HOW TO USE THE CALL LIGHT FOR ANY ASSISTANCE NEEDED. NOT IN ANY FORM OF DISTRESS, NO SOB. DENIED PAIN OR DISCOMFORT AT THIS TIME. IV ACCESS RIGHT WRIST GAUGE 20 INTACT AND PATENT. NOTED WITH LEFT CW HD CATH, DRESSING C/D/I. NOTED WITH LEFT AV FISTULA. SKIN ASSESSMENT/BODY CHECKED DONE, PHOTOS TAKEN. ALL BELONGINGS CHECKED AND NOTED ON CHECKLIST BY PAVEL Green CNA. KEPT PATIENT SAFE AND COMFORTABLE. BED IN LOW/LOCKED POSITION, SIDERAILS UPX2,CALL LIGHT IN REACH. WILL CONTINUE TO MONITOR ACCORDINGLY.
[2018-12-05] MEDS ORDERED: BLOOD SUGAR DIAGNOSTIC 1 EACH STRIP IN SCH (12:00)
[2018-12-05] MEDS: ACETAMINOPHEN ES 500 MG TABLET PO SCH ×2 (13:05→21:20)
[2018-12-05] MEDS: MIDODRINE HCL (5MG) 5 MG TABLET PO SCH ×2 (13:06→17:56)
[2018-12-05] MEDS: SEVELAMER CARBONATE 800 MG TABLET PO SCH ×2 (13:06→17:54)
[2018-12-05] MEDS: HYDROCODONE/APAP 10/325MG 1 EA TABLET PO PRN ×2 (13:07→23:02)
[2018-12-05] MEDS: GABAPENTIN 100 MG CAPSULE PO SCH ×2 (13:07→17:55)
[2018-12-05] MEDS ORDERED: DEXTROSE 50%-WATER 50 ML DISP.SYRIN IV PRN (14:00)
[2018-12-05] MEDS: INSULIN REGULAR, HUMAN 100 UNIT/ML 3 ML VIAL SQ PRN ×2 (14:15→18:33)
[2018-12-05 16:00] VITALS: BP 109/64
--- NOTE | 2018-12-05 17:00 | NUR ---
RN NOTES FOR DIALYSIS CATHETER INSERTION. CONSENT SIGNED. WILL BE DONE AT BEDSIDE. SUPPLIES AT BEDSIDE
[2018-12-05] MEDS: PREGABALIN 100 MG CAPSULE PO SCH (17:54)
[2018-12-05] MEDS: FERROUS SULFATE (325 MG) 325 MG/TAB TABLET PO SCH (17:54)
[2018-12-05] MEDS: LACTOBACILLUS RHAMNOSUS GG 1 EACH CAP.SPRINK PO SCH (17:55)
--- NOTE | 2018-12-05 18:00 | NUR ---
RN NOTES COLOSTOMY BAG CHANGED. CLEANED PATIENT.
[2018-12-05] MEDS: BLOOD SUGAR DIAGNOSTIC 1 EACH STRIP VI SCH ×2 (18:06→22:02)
[2018-12-05] MEDS ORDERED: HEPARIN SODIUM, PORCINE 5000 UNITS/1 ML VIAL SQ ONE (19:00)
--- NOTE | 2018-12-05 19:07 | NUR ---
RN CLOSING NOTES PATIENT IN STABLE CONDITION. ALL NEEDS ATTENDED AND PROVIDED. ALL DUE MEDS GIVEN ORDERED. KEPT PATIENT SAFE AND COMFORTABLE. BED IN LOW/LOCKED POSITION, SIDERAIL;S UPX2, CALL LIGHT IN REACH. ENDORSED TO NIGHT RN FOR SADIA.
[2018-12-05] MEDS ORDERED: HEPARIN SODIUM, PORCINE 5000 UNITS/1 ML VIAL IV ONE (19:30)
--- NOTE | 2018-12-05 19:31 | NUR ---
Heparin Sodium 5000 units IV not given per day shift RN Dr. Rai wants the vial of (Heparin) at bedside prior procedure HD cath insertion. (Supplies that needed before procedure).
--- NOTE | 2018-12-05 19:42 | NUR ---
MS RN RECEIVE PT IN CHAIR A/O X 3 STABLE, RESPIRATION EVEN AND UNLABORED, NO S/S OF DISTRESS. SAFETY MEASURES IN PLACE. WILL CONT TO MTR.
[2018-12-05 20:00] VITALS: BP 98/45
[2018-12-05] MEDS: DULOXETINE HCL 30 MG CAPSULE.DR PO SCH (21:16)
[2018-12-05] MEDS: DOCUSATE SODIUM 100 MG CAPSULE PO SCH (21:20)
[2018-12-05] MEDS: *INSULIN REGULAR(HUMULIN R)HUM 100 UNIT/ML VIAL SQ PRN (21:54)
--- NOTE | 2018-12-05 21:56 | NUR ---
278 MG/DL BLOOD SUGAR 6 UNITS GIVEN SLIDING SCALE PROTOCOL R INSULIN GIVEN
--- NOTE | 2018-12-05 22:00 | NUR ---
R ostomy bag changed. Pt kept clean. will cont to mtr.
[2018-12-06] VITALS (7 sets, daily range): BP systolic 94–113; BP diastolic 49–74
--- NOTE | 2018-12-06 | NUR ---
Pt ileostomy bag changed, Pt kept on removing bag despite explaining risks and benefits. Pt kept clean and dry. Linens was also change.
[2018-12-06] MEDS: HYDROCODONE/APAP 10/325MG 1 EA TABLET PO PRN (03:34)
--- NOTE | 2018-12-06 04:30 | NUR ---
ILEOSTOMY BAG CHANGED, PT KEPT CLEAN AND DRY. WILL CONT TO MTR
--- NOTE | 2018-12-06 06:09 | NUR ---
MS RN PT COMFORTABLY ASLEEP AND EASILY AWAKEN. NO S/S OF DISTRESS, RESPIRATIONS EVEN AND UNLABORED. RIGHT LOWER QUADRANT ILEOSTOMY BAG CHANGED SITE KEPT INTACT CLEANSE WITH SOAP AND WATER AND DRY AT ALL TIMES. NURSING CARE RENDERED, PT KEPT CLEAN, DRY, COMFORTABLE AT ALL TIMES. NEEDS ATTENDED AND ANTICIPATED. GOOD SKIN CARE PROVIDED. SAFETY MEASURES AT ALL TIMES. ENDORSE TO THE NEXT SHIFT.
[2018-12-06] MEDS: INSULIN REGULAR, HUMAN 100 UNIT/ML 3 ML VIAL SQ PRN ×3 (06:36→17:32)
[2018-12-06] MEDS: BLOOD SUGAR DIAGNOSTIC 1 EACH STRIP VI SCH ×4 (06:36→21:22)
--- NOTE | 2018-12-06 07:20 | NUR ---
RN OPENING NOTES PATIENT IN BED RESTING. A/OX3, ABLE TO MAKE NEEDS KNOWN. NOT IN ANY FORM OF DISTRESS, NO SOB. DENIED PAIN OR DISCOMFORT AT THIS TIME. IV ACCESS INTACT AND PATENT. RCW HD CATH NOTED, DRESSING C/D/I. PATIENT HAS JESÚS AV FISTULA NOTED. COLOSTOMY BAG INTACT. KEPT PATIENT SAFE AND COMFORTABLE. BED IN LOW/LOCKED POSITION, SIDERAILS UPX2, CALL LIGHT IN REACH. WILL CONTINUE TO MONIOTR ACCORDINGLY. Addendum: 12/06/18 at 0805 by GUILLERMO WAITE CORRECTION: NOT "RCW" HD CATH... LCW HD CATH NOTED, DRESSING C/D/I.
[2018-12-06 07:29] LABS: BASOPHILS # (AUTO) 0.1 /CMM (0.0-0.2); BASOPHILS % (AUTO) 0.8 % (0.0-2.0); EOSINOPHILS % (AUTO) 4.5 % (0.0-6.0); HEMATOCRIT 38 % (39-51); HEMOGLOBIN 12.3 g/dL (13.5-17.5); LYMPHOCYTES # (AUTO) 1.7 /CMM (0.8-4.8); LYMPHOCYTES % (AUTO) 14.3 % (20.0-44.0); MEAN CORPUSCULAR HGB CONC 32 g/dl (31.0-36.0); MEAN CORPUSCULAR VOLUME 93 fL (80-96); MONOCYTES # (AUTO) 0.6 /CMM (0.1-1.30); MONOCYTES % (AUTO) 4.9 % (2.0-12.0); NEUTROPHILS % (AUTO) 75.5 % (43.0-81.0); PLATELET COUNT (AUTO) 192 /CMM (150-450); RED BLOOD CELL COUNT(AUTO) 4.14 MIL/uL (4.5-6.0)
[2018-12-06] MEDS: SEVELAMER CARBONATE 800 MG TABLET PO SCH ×3 (08:27→17:18)
[2018-12-06] MEDS: PANTOPRAZOLE 40 MG TABLET.DR PO SCH (08:27)
[2018-12-06] MEDS: MIDODRINE HCL (5MG) 5 MG TABLET PO SCH ×3 (08:28→17:18)
[2018-12-06] MEDS: GABAPENTIN 100 MG CAPSULE PO SCH ×3 (08:28→17:18)
[2018-12-06] MEDS: LACTOBACILLUS RHAMNOSUS GG 1 EACH CAP.SPRINK PO SCH ×2 (08:28→17:17)
[2018-12-06] MEDS: FOLIC ACID 1 MG TABLET PO SCH (08:28)
[2018-12-06] MEDS: PREGABALIN 100 MG CAPSULE PO SCH ×2 (08:28→17:18)
[2018-12-06] MEDS: ACETAMINOPHEN ES 500 MG TABLET PO SCH ×2 (08:29→21:00)
[2018-12-06] MEDS: ASCORBIC ACID 500 MG TABLET PO SCH (08:29)
[2018-12-06] MEDS: DULOXETINE HCL 30 MG CAPSULE.DR PO SCH ×2 (08:29→21:21)
[2018-12-06] MEDS: FERROUS SULFATE (325 MG) 325 MG/TAB TABLET PO SCH ×2 (08:29→17:18)
[2018-12-06] MEDS: ZINC SULFATE 220 MG CAPSULE PO SCH (08:29)
[2018-12-06] MEDS ORDERED: FOLIC ACID PO SCH (09:00)
[2018-12-06] MEDS ORDERED: VITAMIN B COMP W C PO SCH (09:00)
[2018-12-06] MEDS ORDERED: [UNRECOGNIZED DRUG - OTHER] PO SCH (09:00)
[2018-12-06 09:27] LABS: CALCIUM, SERUM 9.2 mg/dL (8.5-10.1); MAGNESIUM 2.1 mg/dL (1.8-2.4)
[2018-12-06 09:30] LABS: POTASSIUM 7.2 mmol/L (3.5-5.1)
[2018-12-06 09:32] LABS: CREATININE 14.3 mg/dL (0.6-1.3)
[2018-12-06 09:33] LABS: PHOSPHORUS 10.2 mg/dL (2.5-4.9)
[2018-12-06] MEDS ORDERED: SODIUM BICARBONATE SYR 50 MEQ/50 ML DISP.SYRIN IV ONE (10:30)
[2018-12-06] MEDS ORDERED: ALBUTEROL FS 2.5 MG/0.5 ML VIAL.NEB NEB ONE (10:30)
[2018-12-06] MEDS ORDERED: INSULIN REGULAR, HUMAN 100 UNIT/ML 3 ML VIAL IV ONE (10:30)
[2018-12-06] MEDS ORDERED: DEXTROSE 50%-WATER 50 ML DISP.SYRIN IVP ONE (10:30)
--- NOTE | 2018-12-06 10:50 | NUR ---
RN NOTES RECEIVED PT IN ROOM 11-1 FOR CLOSE OBSERVATION , A/OX4, ON RA, NO SOB NOTED, PLACED ON TELE MONITOR, SR HR IN 60'S, VSS STABLE, L UPPER CHEST WALL HD CATH INTACT, COLOSTOMY BAG INTACT, WITH FORM BROWNISH STOOL, R WIRST IV G 20 ,CLEAN, DRY AND INTACT, SR UP x3, CALL LIGHT WITHIN EASY REACH, BED LOCKED AND IN LOWEST POSITION, CONTINUE TO MONITOR
[2018-12-06] MEDS ORDERED: Calcium Gluconate 1GM/10ML 4.65 MEQ in IV NS 0.9% 50 ML IV ONE (11:00)
--- NOTE | 2018-12-06 11:00 | NUR ---
RN NOTES LAB REPORTED CRITICAL RESULTS: K= 7.2, BUN= 107, CREA= 14.3, PHOS= 10.[address] REPORT[address] TO [address] RADHA BOND AND DR SHAH. DR BOND T/O CALCIUM GLUCONATE 1G IV, 1 amp D50, INSULIN 5 UNITS IV, 1 amp NaHCO3, ALBUTEROL NEBULIZER. DR SHAH T/O TO TRANSFER PATIENT TO [facility].
--- NOTE | 2018-12-06 11:00 | NUR ---
RN NOTES DR GHOSH AT THE BEDSIDE TO INSERT HD CATHETERS.
--- NOTE | 2018-12-06 11:05 | NUR ---
TRANSFERRED PATIENT TO TELE ROOM 111. BEDSIDE REPORT GIVEN TO MARY HOWARD. ALL BELONGINGS AT PATIENT'S BEDSIDE.
--- NOTE | 2018-12-06 11:15 | NUR ---
RN NOTES BG 323, L FEMORAL HD CATH INSERTED. BY DR GHOSH, DR BOND NOTIFED REGARDING BG 323, PT WILL GET HD NOW , PERVIOUS ORDER FROM DR BOND D/LAW PER ORDER . CONTINUE TO MONITOR PT CLOSELY .
--- NOTE | 2018-12-06 13:00 | NUR ---
RN NOTES PT RECEIVING HD , PT STABLE, LEFT FEMORAL HD CATH SITE , CLEAN ,DRY AND INTACT .
--- NOTE | 2018-12-06 18:00 | NUR ---
RN NOTES PT SITTING UP ON A CHAIR EATING DINNER , STABLE, LEFT FEMORAL HD CATH SITE CLEAN, DRY AND INTACT , LEAKING NOTED AT THE COLOSTOMY BAG SITE , COLOSTOMY CHANGED. NO DISTRESS NOTED, WILL ENDOSE TO DIRECTOR FUNDRAISING NURSE FOR CONTINUITY OF CARE.
[2018-12-06] MEDS: DOCUSATE SODIUM 100 MG CAPSULE PO SCH (21:21)
[2018-12-06] MEDS: HYDROCODONE/APAP 5/325MG 1 EACH TABLET PO PRN (21:21)
[2018-12-06] MEDS: *INSULIN REGULAR(HUMULIN R)HUM 100 UNIT/ML VIAL SQ PRN (21:29)
--- NOTE | 2018-12-06 21:32 | NUR ---
RN NOTE PATIENT REFUSED TYLENOL 500MG, HOWEVER, REQUESTED NORCO 5/325 DUE TO PAIN IN THE BACK
[2018-12-07] VITALS: BP 149/71
[2018-12-07 04:00] VITALS: BP 94/49
--- NOTE | 2018-12-07 07:00 | NUR ---
RN NOTES RECEIVED PT ON BED, A/Ox4, ON RA, RESPIRATION EVEN AND UNLABORED, ON TELE SR HR IN 80'S , PT IS NPO THIS AM PER MD ORDER , LEFT FEMORAL HD CATH INTACT, R WRIST IV SITE G 20, CLEAN, DRY AND INTACT, SR UP x3, CALL LIGHT WITHIN EASY REACH, CONTINUE TO MONITOR .
--- NOTE | 2018-12-07 07:19 | NUR ---
RN NOTE PATIENT IS STABLE, NO DISTRESS NOTED, ALERT/ORIENTED X 4, ENDORSED TO AM SHIFT TO CONTINUE CARE
[2018-12-07 07:25] LABS: BASOPHILS # (AUTO) 0.1 /CMM (0.0-0.2); BASOPHILS % (AUTO) 0.6 % (0.0-2.0); EOSINOPHILS % (AUTO) 3.5 % (0.0-6.0); HEMATOCRIT 34 % (39-51); HEMOGLOBIN 11.2 g/dL (13.5-17.5); LYMPHOCYTES # (AUTO) 2.1 /CMM (0.8-4.8); LYMPHOCYTES % (AUTO) 18.5 % (20.0-44.0); MEAN CORPUSCULAR HGB CONC 33 g/dl (31.0-36.0); MEAN CORPUSCULAR VOLUME 92 fL (80-96); MONOCYTES # (AUTO) 0.8 /CMM (0.1-1.30); MONOCYTES % (AUTO) 6.8 % (2.0-12.0); NEUTROPHILS # (AUTO) 8.1 /CMM (1.8-8.9); NEUTROPHILS % (AUTO) 70.6 % (43.0-81.0); PLATELET COUNT (AUTO) 167 /CMM (150-450); RED BLOOD CELL COUNT(AUTO) 3.74 MIL/uL (4.5-6.0); WHITE BLOOD COUNT (AUTO) 11.5 K/uL (4.3-11.0)
[2018-12-07] MEDS: BLOOD SUGAR DIAGNOSTIC 1 EACH STRIP VI SCH ×4 (07:30→21:36)
[2018-12-07 07:46] LABS: CALCIUM, SERUM 8.9 mg/dL (8.5-10.1); POTASSIUM 5.9 mmol/L (3.5-5.1)
[2018-12-07 07:48] LABS: CREATININE 12.4 mg/dL (0.6-1.3)
[2018-12-07] MEDS: HYDROCODONE/APAP 5/325MG 1 EACH TABLET PO PRN ×3 (07:59→21:42)
[2018-12-07 08:00] VITALS: BP 143/92
[2018-12-07] MEDS: SEVELAMER CARBONATE 800 MG TABLET PO SCH ×3 (08:00→17:25)
[2018-12-07] MEDS: GABAPENTIN 100 MG CAPSULE PO SCH ×3 (08:44→16:41)
[2018-12-07] MEDS: PREGABALIN 100 MG CAPSULE PO SCH ×2 (08:44→16:41)
[2018-12-07] MEDS: PANTOPRAZOLE 40 MG TABLET.DR PO SCH (08:45)
[2018-12-07] MEDS: ACETAMINOPHEN ES 500 MG TABLET PO SCH ×2 (09:00→21:34)
[2018-12-07] MEDS: ASCORBIC ACID 500 MG TABLET PO SCH (09:00)
[2018-12-07] MEDS: ZINC SULFATE 220 MG CAPSULE PO SCH (09:00)
[2018-12-07] MEDS: DULOXETINE HCL 30 MG CAPSULE.DR PO SCH ×2 (09:00→21:34)
[2018-12-07] MEDS: FERROUS SULFATE (325 MG) 325 MG/TAB TABLET PO SCH ×2 (09:00→16:41)
[2018-12-07] MEDS: FOLIC ACID 1 MG TABLET PO SCH (09:00)
[2018-12-07] MEDS: MIDODRINE HCL (5MG) 5 MG TABLET PO SCH ×3 (09:00→16:41)
[2018-12-07] MEDS: LACTOBACILLUS RHAMNOSUS GG 1 EACH CAP.SPRINK PO SCH ×2 (09:00→16:41)
[2018-12-07] MEDS: HYDROGEL DRESSING 90 GM TUBE TP SCH ×2 (10:02→21:35)
[2018-12-07 12:00] VITALS: BP 95/53
[2018-12-07 16:00] VITALS: BP 117/72
[2018-12-07] MEDS: Z GUARD REMEDY 2 OZ OINT TP SCH ×2 (16:42→21:36)
[2018-12-07] MEDS: *INSULIN REGULAR(HUMULIN R)HUM 100 UNIT/ML VIAL SQ PRN ×2 (17:55→21:41)
--- NOTE | 2018-12-07 18:00 | NUR ---
RN NOTES VSS STABLE, PT GETTING UP AN WALKING AROUND, NO SIGNIFICANT CHANGES NOTED ON THIS SHIFT, WILL ENDOSE TO RUBY RAILS DEVELOPER NURSE FOR CONTINUITY OF CARE
[2018-12-07 20:00] VITALS: BP 108/46
[2018-12-07] MEDS: DOCUSATE SODIUM 100 MG CAPSULE PO SCH (21:34)
[2018-12-08] VITALS: BP 95/58
[2018-12-08 04:00] VITALS: BP 97/53
[2018-12-08] MEDS ORDERED: HEPARIN SODIUM, PORCINE 1,000 UNIT/ML VIAL ONE (06:38)
[2018-12-08] MEDS ORDERED: LIDOCAINE HCL/PF 1% 30 ML SDV ONE (06:38)
[2018-12-08] MEDS ORDERED: ANESTHESIA TRAY IN PYXIS 1 EA TRAY MC ONE (06:38)
[2018-12-08 06:49] LABS: BASOPHILS # (AUTO) 0.1 /CMM (0.0-0.2); BASOPHILS % (AUTO) 0.8 % (0.0-2.0); EOSINOPHILS % (AUTO) 3.9 % (0.0-6.0); HEMATOCRIT 35 % (39-51); HEMOGLOBIN 11.5 g/dL (13.5-17.5); LYMPHOCYTES # (AUTO) 2.2 /CMM (0.8-4.8); LYMPHOCYTES % (AUTO) 22.7 % (20.0-44.0); MEAN CORPUSCULAR HGB CONC 33 g/dl (31.0-36.0); MEAN CORPUSCULAR VOLUME 91 fL (80-96); MONOCYTES # (AUTO) 0.7 /CMM (0.1-1.30); MONOCYTES % (AUTO) 7.7 % (2.0-12.0); NEUTROPHILS # (AUTO) 6.2 /CMM (1.8-8.9); NEUTROPHILS % (AUTO) 64.9 % (43.0-81.0); PLATELET COUNT (AUTO) 151 /CMM (150-450); WHITE BLOOD COUNT (AUTO) 9.6 K/uL (4.3-11.0)
--- NOTE | 2018-12-08 06:56 | NUR ---
RN NOTE PATIENT LEFT FOR DIALYSIS INSERTION PROCEDURE IN STABLE CONDITION, NO DISTRESS NOTED, VITAL SIGNS STABLE
[2018-12-08 07:08] LABS: CALCIUM, SERUM 9.2 mg/dL (8.5-10.1); POTASSIUM 4.9 mmol/L (3.5-5.1)
[2018-12-08 07:10] LABS: CREATININE 10.9 mg/dL (0.6-1.3)
[2018-12-08] MEDS: BLOOD SUGAR DIAGNOSTIC 1 EACH STRIP VI SCH ×4 (07:30→21:35)
--- NOTE | 2018-12-08 07:30 | NUR ---
television writer notes per pm nurse, pt left for permacath placement procedure at 0700. will wait for recovery room nurse to call back.
[2018-12-08] MEDS ORDERED: BACITRACIN ZINC OINT PACKET 1 EA PACKET TP ONE (07:39)
[2018-12-08 08:00] VITALS: BP 101/57
--- NOTE | 2018-12-08 08:50 | NUR ---
telephone service representative notes received pt from jael, or nurse. vs stable. pt a/ox4. requesting to sit on edge of bed. orders received from surgeon; will follow orders and cont to monitor.
[2018-12-08] MEDS: ACETAMINOPHEN ES 500 MG TABLET PO SCH ×2 (09:00→21:34)
[2018-12-08] MEDS: LACTOBACILLUS RHAMNOSUS GG 1 EACH CAP.SPRINK PO SCH ×2 (09:40→17:46)
[2018-12-08] MEDS: PREGABALIN 100 MG CAPSULE PO SCH ×2 (09:41→17:45)
[2018-12-08] MEDS: SEVELAMER CARBONATE 800 MG TABLET PO SCH ×3 (09:41→17:46)
[2018-12-08] MEDS: MIDODRINE HCL (5MG) 5 MG TABLET PO SCH ×3 (09:42→17:48)
[2018-12-08] MEDS: PANTOPRAZOLE 40 MG TABLET.DR PO SCH (09:42)
[2018-12-08] MEDS: DULOXETINE HCL 30 MG CAPSULE.DR PO SCH ×2 (09:43→21:34)
[2018-12-08] MEDS: FERROUS SULFATE (325 MG) 325 MG/TAB TABLET PO SCH ×2 (09:43→17:45)
[2018-12-08] MEDS: GABAPENTIN 100 MG CAPSULE PO SCH ×3 (09:43→17:46)
[2018-12-08] MEDS: FOLIC ACID 1 MG TABLET PO SCH (09:43)
[2018-12-08] MEDS: ASCORBIC ACID 500 MG TABLET PO SCH (09:43)
[2018-12-08] MEDS: ZINC SULFATE 220 MG CAPSULE PO SCH (09:44)
[2018-12-08] MEDS: HYDROCODONE/APAP 10/325MG 1 EA TABLET PO PRN ×2 (09:56→17:59)
--- NOTE | 2018-12-08 10:49 | NUR ---
WOUND CARE CONSULT WOUND CARE RECEIVED CONSULT FOR RIGHT HAND WOUNDS. WOUND CARE WILL DEFER CONSULT AND TREATMENT PLAN TO PLASTIC SURGICAL TEAM WHO ARE CURRENTLY FOLLOWING THIS PATIENT. GENERAL SURGICAL TEAM IS FOLLOWING PATIENT FOR ILEOSTOMY. ORDERS FOR ILEOSTOMY CARE IN PLACE PER GENERAL SURGICAL TEAM. PATIENT WITH JOSE AT 20, WILL SEE PRN.
[2018-12-08] MEDS: HYDROGEL DRESSING 90 GM TUBE TP SCH ×2 (13:38→21:35)
[2018-12-08] MEDS: Z GUARD REMEDY 2 OZ OINT TP SCH ×2 (13:39→21:35)
[2018-12-08] MEDS: INSULIN REGULAR, HUMAN 100 UNIT/ML 3 ML VIAL SQ PRN ×2 (13:42→17:52)
[2018-12-08 16:00] VITALS: BP 116/64
--- NOTE | 2018-12-08 19:27 | NUR ---
MS RN NOTES PT ENDORSED TO PM NURSE FOR SADIA. PT STABLE AND TOLERATED HD WELL WITH NEW HD CATH ON LEFT CHEST WALL. SAFETY MEASURES MAINTAINED
[2018-12-08 20:00] VITALS: BP 95/56
[2018-12-08] MEDS: DOCUSATE SODIUM 100 MG CAPSULE PO SCH (21:35)
[2018-12-08] MEDS: *INSULIN REGULAR(HUMULIN R)HUM 100 UNIT/ML VIAL SQ PRN (21:40)
[2018-12-09 04:00] VITALS: BP 94/59
--- NOTE | 2018-12-09 07:30 | NUR ---
MS RN INITIAL NOTES PT RECEIVED IN BED, A/OX4. PT ON ROOM AIR WITH O2 SAT 100%. NO LABORED BREATHING. PT STATES HE IS IN PAIN IN BACK LEVEL 8. BP LOW 103/21. PT ABLE TO AMBULATE. LUCHEST WALL PERMACATH USED YESTERDAY IN HD. ILEOSTOMY BAG IN PLACE WITH SLIGHT LEAK. SAFETY MEASURES MAINTAINED. WILL CONT TO MONITOR.
[2018-12-09] MEDS: BLOOD SUGAR DIAGNOSTIC 1 EACH STRIP VI SCH ×2 (07:42→11:19)
[2018-12-09 08:00] VITALS: BP 103/81
[2018-12-09] MEDS: SEVELAMER CARBONATE 800 MG TABLET PO SCH ×2 (08:13→12:37)
[2018-12-09] MEDS: FERROUS SULFATE (325 MG) 325 MG/TAB TABLET PO SCH (08:13)
[2018-12-09] MEDS: PANTOPRAZOLE 40 MG TABLET.DR PO SCH (08:14)
[2018-12-09] MEDS: ZINC SULFATE 220 MG CAPSULE PO SCH (08:14)
[2018-12-09] MEDS: DULOXETINE HCL 30 MG CAPSULE.DR PO SCH (08:14)
[2018-12-09] MEDS: ASCORBIC ACID 500 MG TABLET PO SCH (08:14)
[2018-12-09] MEDS: GABAPENTIN 100 MG CAPSULE PO SCH ×2 (08:14→12:37)
[2018-12-09] MEDS: MIDODRINE HCL (5MG) 5 MG TABLET PO SCH ×2 (08:15→12:44)
[2018-12-09] MEDS: HYDROCODONE/APAP 10/325MG 1 EA TABLET PO PRN (08:15)
[2018-12-09] MEDS: FOLIC ACID 1 MG TABLET PO SCH (08:15)
[2018-12-09] MEDS: PREGABALIN 100 MG CAPSULE PO SCH (08:15)
[2018-12-09] MEDS: LACTOBACILLUS RHAMNOSUS GG 1 EACH CAP.SPRINK PO SCH (08:16)
[2018-12-09] MEDS: ACETAMINOPHEN ES 500 MG TABLET PO SCH (08:16)
[2018-12-09] MEDS: Z GUARD REMEDY 2 OZ OINT TP SCH (08:21)
[2018-12-09] MEDS: HYDROGEL DRESSING 90 GM TUBE TP SCH (08:21)
[2018-12-09] MEDS: INSULIN REGULAR, HUMAN 100 UNIT/ML 3 ML VIAL SQ PRN (12:42)
--- NOTE | 2018-12-09 15:30 | NUR ---
MS RN NOTES GAVE REPORT TO MARY ARCE AT [facility]. PT VSS. REMOVED IV. WOUND PICS TAKEN AND WOUNDS DRESSED. DISCHARGE INSTRUCTIONS GIVEN/BELONGINGS GIVEN TO PT. PT SIGNED. PT TRANSPORTED IN [facility] WITH PARAMEDICS. SAFETY MEASURES MAINTAINED.
[2018-12-09 15:38] VITALS: BP 101/61
== END 2018-12-09 16:10 | DRG 981 ==
LOC: ER 06:59 → MEDSG2 10:33 → TELE1 12-06 10:40 → MEDSG1 12-08 10:06
PROVIDERS: ADMIT Family Medicine; ATTEND Nurse Practitioner Acute Care
DX: T82.41XA Breakdown (mechanical) of vascular dialysis catheter, initial encounter (principal); N18.6 End stage renal disease; E44.0 Moderate protein-calorie malnutrition; I12.0 Hypertensive chronic kidney disease with stage 5 chronic kidney disease or end stage renal disease; E87.1 Hypo-osmolality and hyponatremia; Y83.8 Other surgical procedures as the cause of abnormal reaction of the patient, or of later complication, without mention of misadventure at the time of the procedure; Y92.009 Unspecified place in unspecified non-institutional (private) residence as the place of occurrence of the external cause; Z99.2 Dependence on renal dialysis; E87.5 Hyperkalemia; D63.1 Anemia in chronic kidney disease; Z93.2 Ileostomy status; Z79.4 Long term (current) use of insulin; D72.829 Elevated white blood cell count, unspecified; F17.210 Nicotine dependence, cigarettes, uncomplicated; K21.9 Gastro-esophageal reflux disease without esophagitis; J44.9 Chronic obstructive pulmonary disease, unspecified; Z83.3 Family history of diabetes mellitus; Z82.49 Family history of ischemic heart disease and other diseases of the circulatory system; Z94.7 Corneal transplant status; Y71.2 Prosthetic and other implants, materials and accessory cardiovascular devices associated with adverse incidents; E11.22 Type 2 diabetes mellitus with diabetic chronic kidney disease; E11.65 Type 2 diabetes mellitus with hyperglycemia; E88.09 Other disorders of plasma-protein metabolism, not elsewhere classified; E11.42 Type 2 diabetes mellitus with diabetic polyneuropathy; E83.9 Disorder of mineral metabolism, unspecified; S61.401A Unspecified open wound of right hand, initial encounter; L98.8 Other specified disorders of the skin and subcutaneous tissue; S60.418A Abrasion of other finger, initial encounter; M10.9 Gout, unspecified
CPT/HCPCS: 36415; 71045-TC; 80048-TC; 80061-TC; 80076-TC; 82962-TC; 83735-TC; 84100-TC; 84484-TC; 85025-TC; 85610-TC; 85730-TC; 86706; 87081-TC; 87340; 90935-TC; A4216; A6248; C1750; G0378; J0610; J0690; J1644; J1815; J2001; J3490; Q0162

== ENCOUNTER 2018-12-25 17:32 | Inpatient (IN) | payer BC, OTHER ==
[~2018-12-25] VITALS: Ht 177.8 cm; Wt 72.1 kg
[~2018-12-25 17:32] MED LIST changes: +ACET-2030 PO; -ACET-868 PO; +ASCO500T9 PO; +BISA10SU11 RC; +DOCU-141 PO; +FOLI1TAB16 PO; +HYDR-4354 PO; +MAG30ORA PO; +MIDO5TAB PO; -MULT-447 PO; -Midodrine Hcl (5MG) PO; +NA P133E RC; +ONDA4TAB5 PO; -SIME120L PO; -SODI650T PO; -TOBR60PI2 IV
--- NOTE | 2018-12-25 17:34 | NUR ---
PT JARON FROM DIALYSIS CENTER TO ED BED 10. PER REPORT C/O GENERALIZED WEAKNESS. 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 C/O WEAKNESS AND HEADACHE AND REQUESTING FOR NORCO. PT PLACED ON MONITOR. HYPOTENSIVE DIRECTOR [employer]. AWAITING MD HAIR.
--- NOTE | 2018-12-25 17:37 | NUR ---
DR BLUE AT BEDSIDE FOR EVAL.
--- NOTE | 2018-12-25 17:48 | NUR ---
IV LINE STARTED BLOOD DRAWN AND SENT TO LAB.
[2018-12-25 17:53] LABS: BASOPHILS # (AUTO) 0.1 /CMM (0.0-0.2); BASOPHILS % (AUTO) 0.6 % (0.0-2.0); EOSINOPHILS % (AUTO) 1.8 % (0.0-6.0); HEMATOCRIT 34 % (39-51); HEMOGLOBIN 10.9 g/dL (13.5-17.5); LYMPHOCYTES # (AUTO) 1.4 /CMM (0.8-4.8); LYMPHOCYTES % (AUTO) 13.6 % (20.0-44.0); MEAN CORPUSCULAR HGB CONC 32 g/dl (31.0-36.0); MEAN CORPUSCULAR VOLUME 92 fL (80-96); MONOCYTES # (AUTO) 0.6 /CMM (0.1-1.30); NEUTROPHILS # (AUTO) 8.2 /CMM (1.8-8.9); PLATELET COUNT (AUTO) 333 /CMM (150-450); RED BLOOD CELL COUNT(AUTO) 3.69 MIL/uL (4.5-6.0); WHITE BLOOD COUNT (AUTO) 10.5 K/uL (4.3-11.0)
[2018-12-25] MEDS ORDERED: NEOM1PAC2 TP (18:10)
[2018-12-25] MEDS ORDERED: LACT1CAP69 PO (18:10)
[2018-12-25 18:13] LABS: CALCIUM, SERUM 10.3 mg/dL (8.5-10.1); CARBON DIOXIDE 12 mmol/L (21-32); CHLORIDE 90 mmol/L (98-107); GLUCOSE 251 mg/dL (74-106); POTASSIUM 5.1 mmol/L (3.5-5.1); SODIUM SERUM 124 mmol/L (136-145); UREA NITROGEN, BLOOD 66 mg/dL (7-18)
[2018-12-25 18:25] LABS: ALANINE AMINOTRANSFERASE 16 U/L (12-78); ALBUMIN 2.6 g/dL (3.4-5.0); ALKALINE PHOSPHATASE 272 U/L (46-116); ASPARTATE AMINOTRANSFERASE 11 U/L (15-37); BILIRUBIN,DIRECT 0.1 mg/dL (0.0-0.2); BILIRUBIN,TOTAL 0.4 mg/dL (0.2-1.0); TOTAL PROTEIN, SERUM 7.7 g/dL (6.4-8.2)
--- NOTE | 2018-12-25 18:38 | NUR ---
DR BLUE MADE AWARE OF TRENDING LOW BLOOD PRESSURE. VERBAL ORDER FOR 1/2 LITER NS BOLUS. CARRIED OUT.
--- NOTE | 2018-12-25 19:15 | NUR ---
REPORT TO RAIN HERNANDEZ FOR SADIA.
[2018-12-25 19:59] LABS: BAND % (MANUAL) 4 % (0.0-5.0); EOSINOPHILS % (MANUAL) 2 % (0-4); LYMPHOCYTES % (MANUAL) 16 % (16-48); MONOCYTES % (MANUAL) 7 % (0-11.0); NEUTROPHILS % (MANUAL) 70 (42-76); REACTIVE LYMPHOCYTES 1 % (0-0)
[2018-12-25] MEDS ORDERED: IV NS 0.9% 500 ML BAG IV ONE (21:00)
[2018-12-25] MEDS ORDERED: MAG HYDROX/AL HYDROX/SIMETH 30 ML UDC PO PRN (22:00)
[2018-12-25] MEDS ORDERED: BISACODYL SUPP (10 MG) 10 MG/SUPP.RECT SUPP.RECT RC PRN (22:00)
[2018-12-25] MEDS ORDERED: MAGNESIUM HYDROXIDE 30 ML UDC PO PRN (22:00)
[2018-12-25] MEDS ORDERED: ONDANSETRON HCL/PF 4 MG/2 ML VIAL IVP PRN (22:00)
[2018-12-25] MEDS ORDERED: MIDODRINE HCL (5MG) 5 MG TABLET PO ONE (22:30)
[2018-12-25] MEDS ORDERED: MIDODRINE HCL (5MG) 5 MG TABLET ONE (22:34)
[2018-12-25 22:49] VITALS: BP 64/33
--- NOTE | 2018-12-25 22:50 | NUR ---
SOLIDS CONTROL TECHNICIAN NOTE RECEIVED PT VIA MATTEORSALOME AND TRANSFERRED SAFELY TO BED. A/O X4 AND ABLE TO VERBALIZE NEEDS. ON 2L OF O2 VIA NC AND SATURATING WELL. BREATHING REGULAR AND UNLABORED. TELE-SR. DENIES PAIN OR DISCOMFORT AT THIS TIME. BLOOD PRESSURE NOTED TO BE LOW AT 64/33. WILL NOTIFY CYLINDER HEAD ASSEMBLER JOANA CALDERON FOR FURTHER ORDERS. IV RAC #20 CLEAN AND FLUSHING WELL. COLOSTOMY IN PLACE WITH BROWN SOFT STOOL NOTED. CALL LIGHT WITHIN REACH. WILL MONITOR.
[2018-12-25] MEDS ORDERED: NOREPINEPHRINE 4 MG/4 ML AMPUL IV ONE (22:57)
[2018-12-25 23:00] VITALS: BP 69/36
[2018-12-25 23:15] VITALS: BP 67/52
[2018-12-25] MEDS: NOREPINEPHRINE 16 MG in IV D5W 500 ML IV PRN (23:17)
[2018-12-25] MEDS: DOCUSATE SODIUM 100 MG CAPSULE PO SCH (23:25)
[2018-12-25 23:30] VITALS: BP 93/47
[2018-12-25 23:45] VITALS: BP 87/42
[2018-12-26] VITALS (105 sets, daily range): BP systolic 35–172; BP diastolic 15–130
[2018-12-26] MEDS: HYDROCODONE/APAP 10/325MG 1 EA TABLET PO PRN (00:26)
--- NOTE | 2018-12-26 00:36 | NUR ---
GATE SHEAR OPERATOR NOTE PICC LINE NURSE AT BEDSIDE.
[2018-12-26] MEDS ORDERED: PIPERACILLIN /TAZOBACTAM 2.25 G in IV D5W 50 ML IV ONE (01:00)
[2018-12-26] MEDS ORDERED: PIPERACILLIN /TAZOBACTAM 2.25 G VIAL IV ONE (01:11)
[2018-12-26] MEDS ORDERED: VANCOMYCIN 1 GM VIAL ONE (01:12)
[2018-12-26] MEDS ORDERED: VANCOMYCIN 1 GM in IV D5W 250ml IV ONE (02:00)
[2018-12-26 04:42] LABS: BASOPHILS # (AUTO) 0.2 /CMM (0.0-0.2); BASOPHILS % (AUTO) 1.4 % (0.0-2.0); EOSINOPHILS % (AUTO) 0.8 % (0.0-6.0); HEMATOCRIT 33 % (39-51); HEMOGLOBIN 10.5 g/dL (13.5-17.5); LYMPHOCYTES # (AUTO) 1.6 /CMM (0.8-4.8); LYMPHOCYTES % (AUTO) 12.3 % (20.0-44.0); MEAN CORPUSCULAR HGB CONC 32 g/dl (31.0-36.0); MEAN CORPUSCULAR VOLUME 91 fL (80-96); MONOCYTES % (AUTO) 7.7 % (2.0-12.0); NEUTROPHILS % (AUTO) 77.8 % (43.0-81.0); PLATELET COUNT (AUTO) 380 /CMM (150-450); RED BLOOD CELL COUNT(AUTO) 3.66 MIL/uL (4.5-6.0); WHITE BLOOD COUNT (AUTO) 12.8 K/uL (4.3-11.0)
[2018-12-26 04:59] LABS: CALCIUM, SERUM 9.2 mg/dL (8.5-10.1); MAGNESIUM 2.2 mg/dL (1.8-2.4)
[2018-12-26 05:05] LABS: THYROID STIMULATING HORMONE 1.366 uIU/mL (0.358-3.74)
[2018-12-26 05:23] LABS: CREATININE 10.1 mg/dL (0.6-1.3); PHOSPHORUS 8.9 mg/dL (2.5-4.9)
--- NOTE | 2018-12-26 07:45 | NUR ---
DIRECTOR OF GUIDANCE IN [employer]: pt.is A/Ox2 now, rest, had low back pain, got pain meds, now better, can follow commands, but weak reaction,activity, SR, on Levophed gtt, SBP over 90 now, continue titrate, CVP monitorin-3 by report, now: 2, Na 126, T97.0/warming measures+, anuric, O2sat. over 94%, no SOB, neurostatus assessment q2h, colostomy bag was changed/intact, pharmacy called/updated
[2018-12-26] MEDS: SEVELAMER CARBONATE 800 MG TABLET PO SCH ×3 (07:59→17:29)
[2018-12-26] MEDS: PANTOPRAZOLE 40 MG TABLET.DR PO SCH (07:59)
[2018-12-26] MEDS ORDERED: VANCOMYCIN 500 MG in IV D5W 100 ML IV PRN (08:30)
--- NOTE | 2018-12-26 08:30 | NUR ---
SMART ENERGY SPECIALIST: , were in room, updated with all above, HD today, see new orders
[2018-12-26] MEDS ORDERED: FEE PK DOSING 1 MIN EA MC ONE (08:32)
[2018-12-26] MEDS: PIPERACILLIN /TAZOBACTAM 2.25 G in IV D5W 50 ML IV SCH ×2 (08:42→16:20)
[2018-12-26] MEDS: BACI/NEOM/POLY B OINT PKT 1 UDPKT PACKET TP SCH (08:42)
[2018-12-26] MEDS: Z GUARD REMEDY 2 OZ OINT TP PRN (08:42)
[2018-12-26] MEDS: MIDODRINE HCL (5MG) 5 MG TABLET PO SCH ×3 (09:33→16:17)
[2018-12-26] MEDS: LACTOBACILLUS RHAMNOSUS GG 1 EACH CAP.SPRINK PO SCH ×2 (09:33→16:17)
[2018-12-26] MEDS: VIT B CMPLX 3/FA/VIT C/BIOTIN 1 TAB TABLET PO SCH (09:33)
[2018-12-26] MEDS: DULOXETINE HCL 30 MG CAPSULE.DR PO SCH ×2 (09:33→20:13)
[2018-12-26] MEDS: FERROUS SULFATE (325 MG) 325 MG/TAB TABLET PO SCH ×2 (09:33→16:18)
[2018-12-26] MEDS: FOLIC ACID 1 MG TABLET PO SCH (09:33)
--- NOTE | 2018-12-26 10:45 | NUR ---
CYANIDE POT TENDER: HD nurse updated with pt.VS, Levophed gtt, Na+ 126, K+5, labs, HD started
[2018-12-26] MEDS: GABAPENTIN 100 MG CAPSULE PO SCH ×2 (12:11→16:17)
--- NOTE | 2018-12-26 13:45 | NUR ---
HOUSE ADMIN: HD done, ST now 110-125, Levophed gtt 12 mcg/m, SBP over 90 now, pt.is A/Ox2, no pain, O2sat. WNL
[2018-12-26] MEDS: HYDROCODONE/APAP 5/325MG 1 EACH TABLET PO PRN (15:09)
--- NOTE | 2018-12-26 15:19 | NUR ---
[facility]LAIN: pt c/o low back pain 09/30, rosalina Rodriguez [id number]
[2018-12-26] MEDS: PREGABALIN 100 MG CAPSULE PO SCH (16:18)
--- NOTE | 2018-12-26 17:49 | NUR ---
CYTOMETRY TECHNOLOGIST: pt.is A/Ox2 now, had confused episodes, cooperative, no pain now, ST 100-115, continue titrate Levophed gtt down, CVP 2-4, colostomy bag/base is intact, O2 sat WNL, anuric
--- NOTE | 2018-12-26 19:00 | NUR ---
SERVICE CREW SUPERVISOR: reconc.meds shows pt had insulin SS at home, but was held with admission, pt.confirmed DM history, no c/o s/s of hyperglycemia now, BS 485 now, sent message for
[2018-12-26] MEDS: NOREPINEPHRINE 16 MG in IV D5W 500 ML IV PRN (19:31)
--- NOTE | 2018-12-26 19:51 | NUR ---
RN MD LEWIS CALLED BACK AWARE OF CURRENT BS 485, WITH NEW ORDERS TO GIVE REGULAR INSULIN 12 UNITS IVP X 1 NOW, AND ADD ACCUCHECK ACHS WITH MODERATE SLIDING SCALE, CHANGE CARDIAC DIET TO RENAL DIET. CHARGE NURSE MADE AWARE. WILL CONTINUE TO MONITOR.
[2018-12-26] MEDS ORDERED: INSULIN REGULAR, HUMAN 100 UNIT/ML 3 ML VIAL SQ PRN (20:00)
[2018-12-26] MEDS ORDERED: INSULIN REGULAR, HUMAN 100 UNIT/ML 10 ML VIAL IV ONE (20:00)
[2018-12-26] MEDS ORDERED: *INSULIN REGULAR(HUMULIN R)HUM 100 UNIT/ML VIAL SQ PRN (20:00)
[2018-12-26] MEDS ORDERED: DEXTROSE 50%-WATER 50 ML DISP.SYRIN IV PRN (20:00)
--- NOTE | 2018-12-26 21:40 | NUR ---
RN SPOKE TO JOANA DAVIDSON OPERATING ROOM TECH, AWARE OF BLOOD GLUCOSE LEVEL 439 AFTER GIVEN 12 UNITS IVP OF REGULAR INSULIN OVER HOUR AGO, STUART WITH NOW NEW ORDER , JUST GIVE COVERAGE PER SLIDING SCALE 10 UNITS ORDERED. CHARGE NURSE MADE AWARE.
[2018-12-26] MEDS: DOCUSATE SODIUM 100 MG CAPSULE PO SCH (21:44)
[2018-12-26] MEDS ORDERED: BLOOD SUGAR DIAGNOSTIC 1 EACH STRIP VI SCH (22:00)
[2018-12-27] VITALS (93 sets, daily range): BP systolic 65–198; BP diastolic 14–130
[2018-12-27] MEDS: PIPERACILLIN /TAZOBACTAM 2.25 G in IV D5W 50 ML IV SCH ×3 (01:08→17:19)
[2018-12-27 04:38] LABS: BASOPHILS # (AUTO) 0.1 /CMM (0.0-0.2); BASOPHILS % (AUTO) 0.6 % (0.0-2.0); EOSINOPHILS % (AUTO) 0.7 % (0.0-6.0); HEMATOCRIT 31 % (39-51); HEMOGLOBIN 10.1 g/dL (13.5-17.5); LYMPHOCYTES # (AUTO) 1.1 /CMM (0.8-4.8); LYMPHOCYTES % (AUTO) 10.2 % (20.0-44.0); MEAN CORPUSCULAR HGB CONC 33 g/dl (31.0-36.0); MEAN CORPUSCULAR VOLUME 90 fL (80-96); MONOCYTES # (AUTO) 1.1 /CMM (0.1-1.30); MONOCYTES % (AUTO) 10.6 % (2.0-12.0); NEUTROPHILS # (AUTO) 8.4 /CMM (1.8-8.9); NEUTROPHILS % (AUTO) 77.9 % (43.0-81.0); PLATELET COUNT (AUTO) 301 /CMM (150-450); RED BLOOD CELL COUNT(AUTO) 3.43 MIL/uL (4.5-6.0); WHITE BLOOD COUNT (AUTO) 10.8 K/uL (4.3-11.0)
[2018-12-27 05:00] LABS: CALCIUM, SERUM 8.8 mg/dL (8.5-10.1); POTASSIUM 4.6 mmol/L (3.5-5.1)
[2018-12-27 05:08] LABS: CREATININE 7.9 mg/dL (0.6-1.3)
--- NOTE | 2018-12-27 05:10 | NUR ---
MARY DAVIDSON WET ROOM WORKER PAGED, REPORTED BY LAB 376.
--- NOTE | 2018-12-27 05:40 | NUR ---
MARY DAVIDSON, COURT INTERPRETER CALLED BACK , AWARE OF BLOOD GLUCOSE LEVEL 376, COURT INTERPRETER WITH NEW ORDER TO CHANGE MODERATE SLIDING SCALE TO AGGRESSIVE SCALE, CHARGE NURSE MADE AWARE.
--- NOTE | 2018-12-27 07:30 | NUR ---
RN NOTES RECEIVED PATIENT IN BED, ASLEEP BUT EASILY AWAKEN BY VERBAL STIMULI, ABLE TO RESPOND APPROPRIATELY. ON ROOM AIR, NOT ON ANY FORM OF DISTRESS. BREATHING UNLABORED. SATING FINE. SINUS RHYTHM/SINUS TACHYCARDIA ON THE MONITOR WITH BBBs. DENIES PAIN OF ANY KIND. IV ACCESS ON THE SIRIA, IN PLACE AND PATENT. WITH ONGOING LEVOPHED AT 8 MCG/MIN AT THIS TIME. WITH CVP MONITORING, READING MIGHT BE UNRELIABLE AT THIS TIME DUE TO PATIENT CONTINUOUSLY MOVING IN BED. SAFETY MEASURES OBSERVED AND MAINTAINED. PATIENT ENCOURAGE TO CALL FOR HELP/ ASSISTANCE, VERBALIZE FEELINGS AND CONCERNS. CALL LIGHT PLACED WITHIN REACH, WILL CONTINUE TO MONITOR AND ATTEND TO NEEDS
[2018-12-27] MEDS: SEVELAMER CARBONATE 800 MG TABLET PO SCH ×3 (08:42→17:19)
[2018-12-27] MEDS: FOLIC ACID 1 MG TABLET PO SCH (08:44)
[2018-12-27] MEDS: LACTOBACILLUS RHAMNOSUS GG 1 EACH CAP.SPRINK PO SCH ×2 (08:44→17:20)
[2018-12-27] MEDS: VIT B CMPLX 3/FA/VIT C/BIOTIN 1 TAB TABLET PO SCH (08:44)
[2018-12-27] MEDS: DULOXETINE HCL 30 MG CAPSULE.DR PO SCH ×2 (08:44→21:47)
[2018-12-27] MEDS: FERROUS SULFATE (325 MG) 325 MG/TAB TABLET PO SCH ×2 (08:44→17:20)
[2018-12-27] MEDS: PREGABALIN 100 MG CAPSULE PO SCH ×2 (08:44→17:20)
[2018-12-27] MEDS: BACI/NEOM/POLY B OINT PKT 1 UDPKT PACKET TP SCH (08:46)
[2018-12-27] MEDS: MIDODRINE HCL (5MG) 5 MG TABLET PO SCH ×3 (08:46→17:20)
[2018-12-27] MEDS: INSULIN REGULAR, HUMAN 100 UNIT/ML 3 ML VIAL SQ PRN ×3 (08:47→17:40)
[2018-12-27] MEDS: BLOOD SUGAR DIAGNOSTIC 1 EACH STRIP IN SCH ×4 (08:48→22:12)
[2018-12-27] MEDS: PANTOPRAZOLE 40 MG TABLET.DR PO SCH (09:01)
[2018-12-27] MEDS: GABAPENTIN 100 MG CAPSULE PO SCH ×3 (09:01→17:20)
[2018-12-27] MEDS: HYDROCODONE/APAP 5/325MG 1 EACH TABLET PO PRN ×2 (12:15→22:14)
--- NOTE | 2018-12-27 19:30 | NUR ---
RN NOTES RECEIVED PATIENT ASLEEP ON BED EASILY AROUSABLE IN VERBAL AND TACTILE STIMULI. AOX 3 AFEBRILE. NO ACUTE RESPIRATORY DISTRESS ON ROOM AIR. SR WITH BBB ON TELE MONITOR. ON STRICTLY ISOLATION FOR MRSA NARES. IV SITE ON SIRIA PICC LINE RUNNING WITH LEVOPHED @ 8 MCG/MIN. AND CVP READING @ 2 MMHG. VS IN WNL WILL TITRATE DRIPS PROTOCOL ORDER. LCE HD CATH AND LUE AV SHUNT ARE INTACT CLEANED AND DRY. PATIENT HAS ILEOSTOMY WITH SOFT LIQUIDLY STOOL. CHANGED IT MAGDIEL ITS FULL. KEPT PT CLEAN AND DRY CALL LIGHT REMINDED TO USED. WILL CONTINUE TO MONITOR.
--- NOTE | 2018-12-27 19:30 | NUR ---
RN NOTES ENDORSED FOR CONTINUITY OF CARE. NOT ON ANY FORM OF DISTRESS. NO COMPLAINTS OF PAIN. STILL WITH ONGOING LEVOPHED AT 8MCG/MIN. ALL NURSING NEEDS ATTENDED AND MET. SAFETY MEASURES IN PLACE AT ALL TIMES. CALL LIGHT WITHIN REACH
[2018-12-27] MEDS: DOCUSATE SODIUM 100 MG CAPSULE PO SCH (21:47)
[2018-12-27] MEDS: MUPIROCIN OINT 2% 22 GM TUBE SCH (22:16)
--- NOTE | 2018-12-27 23:30 | NUR ---
RN NOTES 2213 PM - PATIENT COMPLAINED OF HEADACHE AND GENERALIZED BODY PAIN. NORCO GIVEN ORDERED 2313 PM - PATIENT ASLEEP WELL DENIES PAIN ,MEDICINE EFFECTIVE.
[2018-12-28] VITALS (67 sets, daily range): BP systolic 76–160; BP diastolic 27–96
[2018-12-28] MEDS: PIPERACILLIN /TAZOBACTAM 2.25 G in IV D5W 50 ML IV SCH ×3 (00:32→17:29)
[2018-12-28 04:39] LABS: BASOPHILS # (AUTO) 0.1 /CMM (0.0-0.2); BASOPHILS % (AUTO) 0.8 % (0.0-2.0); EOSINOPHILS % (AUTO) 1.7 % (0.0-6.0); HEMATOCRIT 29 % (39-51); HEMOGLOBIN 9.4 g/dL (13.5-17.5); LYMPHOCYTES # (AUTO) 1.9 /CMM (0.8-4.8); LYMPHOCYTES % (AUTO) 16.6 % (20.0-44.0); MEAN CORPUSCULAR HGB CONC 32 g/dl (31.0-36.0); MEAN CORPUSCULAR VOLUME 88 fL (80-96); MONOCYTES # (AUTO) 1.2 /CMM (0.1-1.30); NEUTROPHILS # (AUTO) 7.8 /CMM (1.8-8.9); NEUTROPHILS % (AUTO) 69.9 % (43.0-81.0); PLATELET COUNT (AUTO) 258 /CMM (150-450); WHITE BLOOD COUNT (AUTO) 11.2 K/uL (4.3-11.0)
[2018-12-28 04:48] LABS: CALCIUM, SERUM 9.1 mg/dL (8.5-10.1); POTASSIUM 4.4 mmol/L (3.5-5.1)
[2018-12-28 04:52] LABS: CREATININE 9.5 mg/dL (0.6-1.3)
[2018-12-28] MEDS: NOREPINEPHRINE 16 MG in IV D5W 500 ML IV PRN (06:33)
--- NOTE | 2018-12-28 06:50 | NUR ---
RN NOTES PATIENT ASLEEP WELL ON BED. BREATHING EVEN AND UNLABORED IN ROOM AIR. SR WITH BBB ON TELE MONITOR NO CHANGE OF MENTAL STATUS. AFEBRILE. CONTINUE WITH LEVOPHED TITRATED PROTOCOL ORDER. VS CLOSELY MONITOR. DENIES PAIN AFTER TAKING NORCO. NO SIGNIFICANT CHANGES THROUGHOUT THE SHIFT. AWAITING FOR DIALYSIS TODAY. HD NURSE AWARE. KEPT PT CLEAN AND DRY. CALL LIGHT KEPT WITHIN EASY REACH.WILL ENDORSED CONTINUITY OF CARE TO AM NURSE.
--- NOTE | 2018-12-28 07:30 | NUR ---
RN NOTES RECEIVED BACK PATIENT FROM NIGHT NURSE, PATIENT NOT ON ANY FORM OF DISTRESS. NO ACUTE SIGNIFICANT CHANGES NOTED AT THIS TIME, WILL CONTINUE TO MONITOR AND ATTEND TO NEEDS
[2018-12-28] MEDS: BLOOD SUGAR DIAGNOSTIC 1 EACH STRIP IN SCH ×4 (08:28→21:23)
[2018-12-28] MEDS: PREGABALIN 100 MG CAPSULE PO SCH ×2 (08:28→17:30)
[2018-12-28] MEDS: LACTOBACILLUS RHAMNOSUS GG 1 EACH CAP.SPRINK PO SCH ×2 (08:28→17:30)
[2018-12-28] MEDS: PANTOPRAZOLE 40 MG TABLET.DR PO SCH (08:28)
[2018-12-28] MEDS: BACI/NEOM/POLY B OINT PKT 1 UDPKT PACKET TP SCH (08:28)
[2018-12-28] MEDS: DULOXETINE HCL 30 MG CAPSULE.DR PO SCH ×2 (08:28→20:42)
[2018-12-28] MEDS: FOLIC ACID 1 MG TABLET PO SCH (08:30)
[2018-12-28] MEDS: GABAPENTIN 100 MG CAPSULE PO SCH ×3 (08:30→17:33)
[2018-12-28] MEDS: MIDODRINE HCL (5MG) 5 MG TABLET PO SCH ×3 (08:30→17:33)
[2018-12-28] MEDS: SEVELAMER CARBONATE 800 MG TABLET PO SCH ×3 (08:30→17:30)
[2018-12-28] MEDS: VIT B CMPLX 3/FA/VIT C/BIOTIN 1 TAB TABLET PO SCH (08:31)
[2018-12-28] MEDS: INSULIN REGULAR, HUMAN 100 UNIT/ML 3 ML VIAL SQ PRN ×2 (08:35→12:35)
[2018-12-28] MEDS: HYDROCODONE/APAP 5/325MG 1 EACH TABLET PO PRN ×2 (08:51→18:58)
[2018-12-28] MEDS: FERROUS SULFATE (325 MG) 325 MG/TAB TABLET PO SCH ×2 (08:52→17:30)
[2018-12-28] MEDS: MUPIROCIN OINT 2% 22 GM TUBE SCH ×2 (08:52→20:44)
[2018-12-28] MEDS: CLOTRIMAZOLE 1% 15 GM TUBE TP SCH ×2 (12:31→17:33)
[2018-12-28] MEDS: HYDROGEL DRESSING 90 GM TUBE TP SCH (12:36)
--- NOTE | 2018-12-28 14:00 | NUR ---
RN NOTES WOUND DEBRIDEMENT DONE BY DR. JOSE. PATIENT ABLE TO TOLERATE THE PROCEDURE WELL. WILL CONTINUE TO MONITOR THE PATIENT
--- NOTE | 2018-12-28 15:30 | NUR ---
RN NOTES DIALYSIS TREATMENT INITIATED AT THIS TIME
[2018-12-28] MEDS ORDERED: VANCOMYCIN 1 GM in IV NS 0.9% 250 ML IV ONE (18:00)
--- NOTE | 2018-12-28 18:00 | NUR ---
RN NOTES ENDORSED PATIENT TO MARY JJ FOR CONTINUITY OF CARE. HANDS OFF
--- NOTE | 2018-12-28 19:40 | NUR ---
RN NOTES PATIENT AWAKE AOX3 WATCHING TV ON BED. NO ACUTE RESPIRATORY DISTRESS IN ROOM AIR. SR W/ BBB ON TELE MONITOR. HR 91. DENIES ANY PAIN AFEBRILE. DENIES ANY DIZZINESS OR NAUSEA AND VOMITING. ILEOSTOMY PRESENT INTACT WITH LARGE OUTPUT WITH ALL FOOD CONTENT. IV SITE ON SIRIA TLC 2 POR WORKS BUT OTHER 1 OCCLUDED. CONTINUE RUNNING WITH LEVOPHED TITRATED PROTOCOL ORDERED. BS MONITORED. S/P DIALYSIS PER AM NURSE. NO CHANGE OF CONDITION. KEPT PT CLEAN AND DRY. CALL LIGHT KEPT WITHIN EASY REACH WILL CONTINUE TO MONITOR.
[2018-12-28] MEDS: CEFEPIME 1 GM in IV D5W 50 ML IV SCH (20:41)
[2018-12-28] MEDS: DOCUSATE SODIUM 100 MG CAPSULE PO SCH (21:00)
[2018-12-28] MEDS: *INSULIN REGULAR(HUMULIN R)HUM 100 UNIT/ML VIAL SQ PRN (21:09)
[2018-12-29] VITALS (85 sets, daily range): BP systolic 65–153; BP diastolic 20–113
[2018-12-29 04:33] LABS: BASOPHILS # (AUTO) 0.1 /CMM (0.0-0.2); BASOPHILS % (AUTO) 0.6 % (0.0-2.0); EOSINOPHILS % (AUTO) 1.5 % (0.0-6.0); HEMATOCRIT 31 % (39-51); LYMPHOCYTES # (AUTO) 1.3 /CMM (0.8-4.8); LYMPHOCYTES % (AUTO) 13.2 % (20.0-44.0); MEAN CORPUSCULAR HGB CONC 33 g/dl (31.0-36.0); MEAN CORPUSCULAR VOLUME 89 fL (80-96); MONOCYTES # (AUTO) 0.9 /CMM (0.1-1.30); MONOCYTES % (AUTO) 9.3 % (2.0-12.0); NEUTROPHILS # (AUTO) 7.6 /CMM (1.8-8.9); NEUTROPHILS % (AUTO) 75.4 % (43.0-81.0); PLATELET COUNT (AUTO) 265 /CMM (150-450); RED BLOOD CELL COUNT(AUTO) 3.44 MIL/uL (4.5-6.0); WHITE BLOOD COUNT (AUTO) 10.1 K/uL (4.3-11.0)
[2018-12-29 04:43] LABS: CALCIUM, SERUM 8.9 mg/dL (8.5-10.1); CREATININE 7.2 mg/dL (0.6-1.3); POTASSIUM 4.5 mmol/L (3.5-5.1)
--- NOTE | 2018-12-29 07:00 | NUR ---
RN NOTES PATIENT REMAINED STABLE NO SIGNIFICANT CHANGES ON MENTAL STATUS. NO SOB OR ACUTE RESPIRATORY DISTRESS.ON ROOM AIR. SR WITH BBB ON TELE MONITOR. VSS CLOSELY MONITOR. CONTINUE WITH LEVOPHED DRIP TITRATED ORDERED. KEPT PT CLEAN AND DRY CALL LIGHT PROMPTLY ATTENDED. KEPT CLEAN AND DRY ILEOSTOMY BAG CHANGE. ENDORSED CONTINUITY OF CARE TO AM NURSE.
--- NOTE | 2018-12-29 07:10 | NUR ---
SHINGLE BOLT CUTTER INITIAL NOTES Rec'd pt awake on bed, not in any distress, A/O x 3, denies any pain/discomfort. On room air, no SOB. SR on telemonitor. Has SIRIA PICC line w/ Levophed drip x 3 mcg infusing well. Has LCW HD cath & JESÚS AV shunt. Has ileostomy, bag in place. Safety precaution in place w/ bed in lowest & locked pos. Call light placed w/in reach. Isolation prec in place. Will cont to monitor & attend pt needs.
[2018-12-29] MEDS: SEVELAMER CARBONATE 800 MG TABLET PO SCH ×3 (07:36→17:31)
[2018-12-29] MEDS: PANTOPRAZOLE 40 MG TABLET.DR PO SCH (07:36)
[2018-12-29] MEDS: BLOOD SUGAR DIAGNOSTIC 1 EACH STRIP IN SCH ×4 (07:45→21:41)
[2018-12-29] MEDS: INSULIN REGULAR, HUMAN 100 UNIT/ML 3 ML VIAL SQ PRN ×3 (07:46→17:06)
[2018-12-29] MEDS: FOLIC ACID 1 MG TABLET PO SCH (08:42)
[2018-12-29] MEDS: PREGABALIN 100 MG CAPSULE PO SCH ×2 (08:42→16:22)
[2018-12-29] MEDS: LACTOBACILLUS RHAMNOSUS GG 1 EACH CAP.SPRINK PO SCH ×2 (08:42→16:22)
[2018-12-29] MEDS: MUPIROCIN OINT 2% 22 GM TUBE SCH ×2 (08:42→21:34)
[2018-12-29] MEDS: GABAPENTIN 100 MG CAPSULE PO SCH ×3 (08:42→16:22)
[2018-12-29] MEDS: VIT B CMPLX 3/FA/VIT C/BIOTIN 1 TAB TABLET PO SCH (08:42)
[2018-12-29] MEDS: DULOXETINE HCL 30 MG CAPSULE.DR PO SCH ×2 (08:42→21:18)
[2018-12-29] MEDS: MIDODRINE HCL (5MG) 5 MG TABLET PO SCH ×3 (08:42→16:22)
[2018-12-29] MEDS: FERROUS SULFATE (325 MG) 325 MG/TAB TABLET PO SCH ×2 (08:42→16:23)
[2018-12-29] MEDS: HYDROGEL DRESSING 90 GM TUBE TP SCH (08:43)
[2018-12-29] MEDS: CLOTRIMAZOLE 1% 15 GM TUBE TP SCH ×2 (08:43→16:23)
[2018-12-29] MEDS: NEOMY SULF/BACITRAC ZN/POLY 15 GM TUBE TP SCH (08:43)
[2018-12-29] MEDS: Z GUARD REMEDY 2 OZ OINT TP PRN (08:44)
[2018-12-29] MEDS: HYDROCODONE/APAP 10/325MG 1 EA TABLET PO PRN (08:49)
--- NOTE | 2018-12-29 09:00 | NUR ---
Pt seen & examined by Dr. Leahy.
[2018-12-29] MEDS: NOREPINEPHRINE 16 MG in IV D5W 500 ML IV PRN (17:30)
[2018-12-29] MEDS: CEFEPIME 1 GM in IV D5W 50 ML IV SCH (17:30)
--- NOTE | 2018-12-29 18:47 | NUR ---
EAR MUFF ASSEMBLER CLOSING NOTES Pt resting on bed, not in any distress. Tolerated room air, no SOB. SR on telemonitor. SIRIA PICC line kept patent & intact w/ no s/sx of infection/infiltration noted w/ Levophed drip x 2 mcg infusing well. LCW HD cath & JESÚS AV shunt in place. Ileostomy clean, dry & intact. Safety precaution kept in place w/ bed in lowest & locked pos. Call light placed w/in reach. Isolation prec observed. Will endorse to PM RN for SADIA.
--- NOTE | 2018-12-29 19:20 | NUR ---
RN NOTES PATIENT ASLEEP ON BED. NO APPARENT RESPIRATORY DISTRESS IN ROOM AIR. SATURATION 100%. SR W/ BBB ON TELE MONITOR. HR 70. DENIES ANY PAIN, AFEBRILE. DENIES ANY DIZZINESS, HEADACHE OR NAUSEA AND VOMITING. ILEOSTOMY INTACT AND DRAINED WELL. IV SITE ON SIRIA TLC 1 PORT ONLY WORKS. WITH LEVOPHED TITRATED PROTOCOL ORDERED. BS MONITORED. KEPT PT CLEAN AND DRY. BED LOCKED AND PLACED IN LOWEST POSS. POSITION. CALL LIGHT KEPT WITHIN EASY REACH REMINDED TO USE FOR ASSISTANCE. WILL CONTINUE TO MONITOR.
[2018-12-29] MEDS: DOCUSATE SODIUM 100 MG CAPSULE PO SCH (21:18)
[2018-12-29] MEDS: HYDROCODONE/APAP 5/325MG 1 EACH TABLET PO PRN (21:37)
[2018-12-29] MEDS: *INSULIN REGULAR(HUMULIN R)HUM 100 UNIT/ML VIAL SQ PRN (21:39)
[2018-12-30] VITALS (87 sets, daily range): BP systolic 67–138; BP diastolic 19–81
[2018-12-30 04:55] LABS: BASOPHILS # (AUTO) 0.1 /CMM (0.0-0.2); BASOPHILS % (AUTO) 0.9 % (0.0-2.0); EOSINOPHILS % (AUTO) 1.1 % (0.0-6.0); HEMATOCRIT 31 % (39-51); HEMOGLOBIN 9.7 g/dL (13.5-17.5); LYMPHOCYTES # (AUTO) 1.5 /CMM (0.8-4.8); LYMPHOCYTES % (AUTO) 12.9 % (20.0-44.0); MEAN CORPUSCULAR HGB CONC 32 g/dl (31.0-36.0); MEAN CORPUSCULAR VOLUME 90 fL (80-96); MONOCYTES # (AUTO) 0.9 /CMM (0.1-1.30); NEUTROPHILS % (AUTO) 77.1 % (43.0-81.0); PLATELET COUNT (AUTO) 222 /CMM (150-450); WHITE BLOOD COUNT (AUTO) 11.7 K/uL (4.3-11.0)
[2018-12-30 05:11] LABS: CALCIUM, SERUM 9.2 mg/dL (8.5-10.1); POTASSIUM 5.1 mmol/L (3.5-5.1)
[2018-12-30 05:27] LABS: CREATININE 9.1 mg/dL (0.6-1.3)
--- NOTE | 2018-12-30 07:00 | NUR ---
RN NOTES PATIENT REMAINED STABLE DENIES PAIN AFTER TAKING PAIN MEDICINE ONCE. NO SIGNIFICANT CHANGES CONTINUE ON MONITORING FOR HYPOTENSION. LEVOPHED CONTINUE TITRATED PROTOCOL ORDER. PATIENT BP IS DEPEND ON HIS POSITION. REFUSED TO HAVE BED BATH TODAY ILEOSTOMY EMPTYING Q2H AND PRN. ALL NEEDS ATTENDED. NA 120 AND CREATININE 9.1 REPORTED TO MD AWARE. WILL CONTINUE TO MONITOR. ENDORSED CONTINUITY OF CARE.
--- NOTE | 2018-12-30 07:15 | NUR ---
RN NOTES NO SIGNIFICANT CHANGES TROUGHOUT THE SHIFT. NO CHANGE OF MENTAL STATUS REMAINED AOX2-3 WITH CONFUSION. CONTINUE ON EVD MONITOR ICP BETWEEN 5-7 MMHG. CSF DRAINED ABOUT >20 THROUGHOUT THE SHIFT. DENIES HEADACHE AND DIZZINESS. SBP REMAINED <190 MMHG CONTIENU TO MONITOR . IVF D5 1/2 NS + 40 MEQ KCL CONTINUE, LATEST POTASSIUM LEVEL WAS 2.7 REPORTED TO SHIVA GHOSH AWAITING FOR ORDER, ENDORSED TO AM SHIFT FOR CONTINUITY OF CARE. KEPT PT CLEAN AND DRY. BED LEVELED FROM EVD LEVEL. BED BATH DONE AND TOLERATED WELL. Addendum: 12/30/18 at 0736 by PETE TAVERAS RN WRONG PATIENT
--- NOTE | 2018-12-30 07:35 | NUR ---
MULTI DISCIPLINED LANGUAGE ANALYST OPENING NOTES RECEIVED REPORT FROM PM NURSE. PATIENT IN BED.AXOX3. ON ROOM AIR. BREATHING UNLABORED.NO SOB NO DISTRESS NOTED. SINUS RHYTHM WITH BBB ON THE MONITOR . IV ACCESS ON THE SIRIA, INTACT AND PATENT WITH ONGOING LEVOPHED AT 4 MCG/MIN AT THIS TIME. SAFETY MEASURES OBSERVED AND MAINTAINED. PATIENT ENCOURAGE TO CALL FOR HELP/ ASSISTANCE, VERBALIZE FEELINGS AND CONCERNS. CALL LIGHT PLACED WITHIN REACH.BED IS LOW AND IN LOCKED POSITION .BED ALARM ON.WILL CONTINUE TO MONITOR .
[2018-12-30] MEDS: PANTOPRAZOLE 40 MG TABLET.DR PO SCH (07:49)
[2018-12-30] MEDS: BLOOD SUGAR DIAGNOSTIC 1 EACH STRIP IN SCH ×4 (07:49→21:54)
[2018-12-30] MEDS: INSULIN REGULAR, HUMAN 100 UNIT/ML 3 ML VIAL SQ PRN ×3 (07:51→18:00)
[2018-12-30] MEDS: GABAPENTIN 100 MG CAPSULE PO SCH ×3 (08:39→17:34)
[2018-12-30] MEDS: FOLIC ACID 1 MG TABLET PO SCH (08:39)
[2018-12-30] MEDS: MIDODRINE HCL (5MG) 5 MG TABLET PO SCH ×3 (08:40→17:34)
[2018-12-30] MEDS: VIT B CMPLX 3/FA/VIT C/BIOTIN 1 TAB TABLET PO SCH (08:40)
[2018-12-30] MEDS: FERROUS SULFATE (325 MG) 325 MG/TAB TABLET PO SCH ×2 (08:40→17:34)
[2018-12-30] MEDS: DULOXETINE HCL 30 MG CAPSULE.DR PO SCH ×2 (08:40→21:54)
[2018-12-30] MEDS: LACTOBACILLUS RHAMNOSUS GG 1 EACH CAP.SPRINK PO SCH ×2 (08:40→17:34)
[2018-12-30] MEDS: SEVELAMER CARBONATE 800 MG TABLET PO SCH ×3 (08:40→17:33)
[2018-12-30] MEDS: PREGABALIN 100 MG CAPSULE PO SCH ×2 (08:40→17:34)
[2018-12-30] MEDS: HYDROGEL DRESSING 90 GM TUBE TP SCH (08:43)
[2018-12-30] MEDS: MUPIROCIN OINT 2% 22 GM TUBE SCH ×2 (08:43→21:54)
[2018-12-30] MEDS: Z GUARD REMEDY 2 OZ OINT TP PRN (08:43)
[2018-12-30] MEDS: CLOTRIMAZOLE 1% 15 GM TUBE TP SCH ×2 (08:52→18:50)
[2018-12-30] MEDS: NEOMY SULF/BACITRAC ZN/POLY 15 GM TUBE TP SCH (08:53)
[2018-12-30] MEDS: HYDROCODONE/APAP 10/325MG 1 EA TABLET PO PRN ×3 (09:22→22:04)
[2018-12-30] MEDS: HYDROCODONE/APAP 5/325MG 1 EACH TABLET PO PRN (12:10)
--- NOTE | 2018-12-30 15:00 | NUR ---
COMMERCIAL DEVELOPMENT MANAGER NOTE DIALYSIS DONE.PATIENT IN STABLE CONDITION.
--- NOTE | 2018-12-30 15:25 | NUR ---
MANAGER SUBWAY NOTE SEEN BY YUMIKO BLACKMAN,PODIATRY,REQUESTED CONSULT FROM FOR US LOWER EXTREMITY STUDY ARTERIAL RESULT. ,LEIDY AWARE.UPDATED PATIENT CONDITION WITH RESULT.HE TOLD THAT HE WILL COME AND SEE THE PATIENT.
[2018-12-30] MEDS ORDERED: NEPRO VAN 237 ML CAN PO PRN (15:30)
[2018-12-30] MEDS: VANCOMYCIN 500 MG in IV D5W 100 ML IV PRN (17:35)
[2018-12-30] MEDS: NOREPINEPHRINE 16 MG in IV D5W 500 ML IV PRN (17:37)
--- NOTE | 2018-12-30 19:00 | NUR ---
RECEIVED PATIENT IN NO ACUTE DISTRESS IN BED. PATIENT IS A/O X 4 AND ABLE TO MAKE HIS NEEDS KNOWN. PATIENT IS ON ROOM AIR AND TOLERATING WELL. PATIENT IS ON TELEMETRY WITH SINUS RHYTHM WITH BBB. PATIENT HAS ILEOSTOMY THAT IS CLEAN DRY INTACT AND PATENT WITH BROWN LIQUID STOOL IN BAG. PATENT HAS LEFT CHEST WALL HEMODIALYSIS CATHETER THAT IS CLEAN DRY AND INTACT. PATIENT HAS LEFT UPPER ARM SHUNT THAT IS NOT WORKING. PATIENT HAS RIGHT UPPER ARM PICC TRIPLE LUMEN CATHETER WITH LEVOPHED AT 4MCG. BED IN LOW LOCK POSITION WITH RAILS UP X 2. CALL LIGHT WITHIN REACH AND ALL SAFETY MEASURES ENSURED AND CARRIED OUT. WILL CONTINUE TO MONITOR.
[2018-12-30] MEDS: CEFEPIME 1 GM in IV D5W 50 ML IV SCH (19:03)
[2018-12-30] MEDS: DOCUSATE SODIUM 100 MG CAPSULE PO SCH (21:54)
[2018-12-30] MEDS: *INSULIN REGULAR(HUMULIN R)HUM 100 UNIT/ML VIAL SQ PRN (22:02)
[2018-12-31] VITALS (105 sets, daily range): BP systolic 55–168; BP diastolic 23–135
[2018-12-31 04:04] LABS: BASOPHILS # (AUTO) 0.1 /CMM (0.0-0.2); BASOPHILS % (AUTO) 0.6 % (0.0-2.0); EOSINOPHILS % (AUTO) 0.8 % (0.0-6.0); HEMATOCRIT 31 % (39-51); HEMOGLOBIN 9.8 g/dL (13.5-17.5); LYMPHOCYTES # (AUTO) 1.3 /CMM (0.8-4.8); LYMPHOCYTES % (AUTO) 11.9 % (20.0-44.0); MEAN CORPUSCULAR HGB CONC 31 g/dl (31.0-36.0); MEAN CORPUSCULAR VOLUME 89 fL (80-96); MONOCYTES # (AUTO) 0.6 /CMM (0.1-1.30); MONOCYTES % (AUTO) 5.2 % (2.0-12.0); NEUTROPHILS % (AUTO) 81.5 % (43.0-81.0); PLATELET COUNT (AUTO) 226 /CMM (150-450); RED BLOOD CELL COUNT(AUTO) 3.51 MIL/uL (4.5-6.0); WHITE BLOOD COUNT (AUTO) 11.1 K/uL (4.3-11.0)
[2018-12-31 04:16] LABS: CALCIUM, SERUM 8.8 mg/dL (8.5-10.1); CREATININE 6.7 mg/dL (0.6-1.3); POTASSIUM 4.5 mmol/L (3.5-5.1)
[2018-12-31] MEDS: BLOOD SUGAR DIAGNOSTIC 1 EACH STRIP IN SCH ×4 (06:33→21:37)
[2018-12-31] MEDS: INSULIN REGULAR, HUMAN 100 UNIT/ML 3 ML VIAL SQ PRN ×3 (06:34→17:11)
[2018-12-31] MEDS: PANTOPRAZOLE 40 MG TABLET.DR PO SCH (06:36)
--- NOTE | 2018-12-31 06:54 | NUR ---
PATIENT REMAINS IN NO ACUTE DISTRESS IN BED. PATIENT DID NOT HAVE ANY SIGNIFICANT CHANGE IN CONDITION DURING SHIFT. ALL NEEDS MET, ALL ORDERS CARRIED OUT. WILL ENDORSE CARE TO AM RN FOR CONTINUITY OF CARE.
--- NOTE | 2018-12-31 07:19 | NUR ---
RN NOTES RECEIVED PATIENT ON BED , A/O X 4 AND ABLE TO MAKE HIS NEEDS KNOWN. ON ROOM AIR AND TOLERATING WELL.NO SOB NOTED, PATIENT IS ON TELEMETRY WITH SINUS RHYTHM WITH BBB. ILEOSTOMY IS CLEAN DRY INTACT AND PATENT WITH BROWN LIQUID STOOL IN BAG. LEFT CHEST WALL HEMODIALYSIS CATHETER SITE , CLEAN ,DRY AND INTACT. PT ON LEVOPHED AT 2MCG/MIN AT THIS TIME , CONTINUE TO MONITOR VSS , BED IN LOW LOCK POSITION WITH RAILS UP X 3. CALL LIGHT WITHIN EASY REACH ,CONTINUE TO MONITOR.
[2018-12-31] MEDS: FOLIC ACID 1 MG TABLET PO SCH (08:27)
[2018-12-31] MEDS: MIDODRINE HCL (5MG) 5 MG TABLET PO SCH ×3 (08:29→16:13)
[2018-12-31] MEDS: SEVELAMER CARBONATE 800 MG TABLET PO SCH ×3 (08:29→17:11)
[2018-12-31] MEDS: GABAPENTIN 100 MG CAPSULE PO SCH ×3 (08:29→16:13)
[2018-12-31] MEDS: VIT B CMPLX 3/FA/VIT C/BIOTIN 1 TAB TABLET PO SCH (08:29)
[2018-12-31] MEDS: DULOXETINE HCL 30 MG CAPSULE.DR PO SCH ×2 (08:29→21:37)
[2018-12-31] MEDS: PREGABALIN 100 MG CAPSULE PO SCH ×2 (08:29→16:13)
[2018-12-31] MEDS: LACTOBACILLUS RHAMNOSUS GG 1 EACH CAP.SPRINK PO SCH ×2 (08:29→16:13)
[2018-12-31] MEDS: MUPIROCIN OINT 2% 22 GM TUBE SCH ×2 (08:30→21:37)
[2018-12-31] MEDS: FERROUS SULFATE (325 MG) 325 MG/TAB TABLET PO SCH ×2 (08:30→16:13)
[2018-12-31] MEDS: CLOTRIMAZOLE 1% 15 GM TUBE TP SCH ×2 (08:31→16:15)
[2018-12-31] MEDS: HYDROGEL DRESSING 90 GM TUBE TP SCH (08:31)
[2018-12-31] MEDS: ACETAMINOPHEN 325 MG TABLET PO PRN (08:49)
[2018-12-31] MEDS: HYDROCODONE/APAP 5/325MG 1 EACH TABLET PO PRN (10:39)
[2018-12-31] MEDS: NEOMY SULF/BACITRAC ZN/POLY 15 GM TUBE TP SCH (11:08)
--- NOTE | 2018-12-31 12:00 | NUR ---
RN NOTES PT SITTING AT THE EDGE OF THE BED, NO DISTRESS NOTED, ILEOSTOMY CARE DONE, CONTINUE TO MONITOR .
[2018-12-31] MEDS: NOREPINEPHRINE 16 MG in IV D5W 500 ML IV PRN (17:29)
[2018-12-31] MEDS: CEFEPIME 1 GM in IV D5W 50 ML IV SCH (17:30)
--- NOTE | 2018-12-31 18:10 | NUR ---
RN NOTES ILEOSTOMY CARE DONE PRN , LEVO AT .5 MCG/MIN AT THIS TIME, BP STABLE, PT SITTING AT THE EDGE OF THE BED HAVING DINNER , NO SIGNIFICANT CHANGES NOTED ON THIS SHIFT, WILL ENDOSE TO FARM ASSISTANT NURSE FOR CONTINUITY OF CARE .
--- NOTE | 2018-12-31 19:00 | NUR ---
RECEIVED PATIENT IN NO ACUTE DISTRESS IN BED. PATIENT IS A/O X 4 AND ABLE TO MAKE HIS NEEDS KNOWN. PATIENT IS ON ROOM AIR AND TOLERATING WELL. PATIENT IS ON TELEMETRY WITH SINUS RHYTHM WITH BBB. PATIENT HAS ILEOSTOMY THAT IS CLEAN DRY INTACT AND PATENT WITH BROWN/GREEN LIQUID STOOL IN BAG. PATENT HAS LEFT CHEST WALL HEMODIALYSIS CATHETER THAT IS CLEAN DRY AND INTACT. PATIENT HAS LEFT UPPER ARM SHUNT THAT IS NOT WORKING. PATIENT HAS RIGHT UPPER ARM PICC TRIPLE LUMEN CATHETER WITH LEVOPHED AT 2MCG. BED IN LOW LOCK POSITION WITH RAILS UP X 2. CALL LIGHT WITHIN REACH AND ALL SAFETY MEASURES ENSURED AND CARRIED OUT. WILL CONTINUE TO MONITOR.
[2018-12-31] MEDS: DOCUSATE SODIUM 100 MG CAPSULE PO SCH (21:37)
[2018-12-31] MEDS: *INSULIN REGULAR(HUMULIN R)HUM 100 UNIT/ML VIAL SQ PRN (21:59)
[2019-01-01] VITALS (62 sets, daily range): BP systolic 76–131; BP diastolic 44–78
[2019-01-01 04:59] LABS: BASOPHILS # (AUTO) 0.1 /CMM (0.0-0.2); BASOPHILS % (AUTO) 0.5 % (0.0-2.0); EOSINOPHILS % (AUTO) 0.9 % (0.0-6.0); HEMATOCRIT 33 % (39-51); HEMOGLOBIN 10.6 g/dL (13.5-17.5); LYMPHOCYTES # (AUTO) 1.7 /CMM (0.8-4.8); LYMPHOCYTES % (AUTO) 13.2 % (20.0-44.0); MEAN CORPUSCULAR HGB CONC 32 g/dl (31.0-36.0); MEAN CORPUSCULAR VOLUME 90 fL (80-96); MONOCYTES # (AUTO) 0.7 /CMM (0.1-1.30); MONOCYTES % (AUTO) 5.7 % (2.0-12.0); NEUTROPHILS # (AUTO) 10.3 /CMM (1.8-8.9); NEUTROPHILS % (AUTO) 79.7 % (43.0-81.0); PLATELET COUNT (AUTO) 225 /CMM (150-450); RED BLOOD CELL COUNT(AUTO) 3.63 MIL/uL (4.5-6.0); WHITE BLOOD COUNT (AUTO) 12.9 K/uL (4.3-11.0)
[2019-01-01 05:06] LABS: CALCIUM, SERUM 9.2 mg/dL (8.5-10.1); POTASSIUM 5.2 mmol/L (3.5-5.1)
[2019-01-01 05:10] LABS: CREATININE 8.2 mg/dL (0.6-1.3)
--- NOTE | 2019-01-01 06:26 | NUR ---
NOTIFIED DR. GHOSH THAT PATIENT HAS A CRITICAL LAB VALUE PROCALCITONIN-. RECEIVED ORDERS FOR BLOOD CULTURES X 2. Addendum: 01/01/19 at 0627 by LEONOR MARTIN RN READBACK ORDERS PERFORMED AND CARRIED OUT.
--- NOTE | 2019-01-01 06:33 | NUR ---
RECEIVED PATIENT IN NO ACUTE DISTRESS IN BED. PATIENT IS A/O X 4 AND ABLE TO MAKE HIS NEEDS KNOWN. PATIENT IS ON ROOM AIR AND TOLERATING WELL. PATIENT IS ON TELEMETRY WITH SINUS RHYTHM WITH BBB. PATIENT HAS ILEOSTOMY THAT IS CLEAN DRY INTACT AND PATENT WITH BROWN/GREEN LIQUID STOOL IN BAG. PATENT HAS LEFT CHEST WALL HEMODIALYSIS CATHETER THAT IS CLEAN DRY AND INTACT. PATIENT HAS LEFT UPPER ARM SHUNT THAT IS NOT WORKING. PATIENT HAS RIGHT UPPER ARM PICC TRIPLE LUMEN CATHETER WITH LEVOPHED AT 5MCG. BED IN LOW LOCK POSITION WITH RAILS UP X 2. CALL LIGHT WITHIN REACH AND ALL SAFETY MEASURES ENSURED AND CARRIED OUT. WILL CONTINUE TO MONITOR.
[2019-01-01] MEDS: INSULIN REGULAR, HUMAN 100 UNIT/ML 3 ML VIAL SQ PRN ×3 (06:59→18:31)
[2019-01-01] MEDS: BLOOD SUGAR DIAGNOSTIC 1 EACH STRIP IN SCH ×4 (07:00→21:36)
[2019-01-01] MEDS: PANTOPRAZOLE 40 MG TABLET.DR PO SCH (07:01)
--- NOTE | 2019-01-01 07:30 | NUR ---
FUNDRAISING CONSULTANT OPENING NOTES RECEIVED PATIENT IN BED PATIENT IS A/O X 4 AND ABLE TO MAKE HIS NEEDS KNOWN. PATIENT IS ON ROOM AIR AND TOLERATING WELL. PATIENT IS ON TELE WITH SINUS RHYTHM WITH BBB. PATIENT HAS ILEOSTOMY THAT IS CLEAN DRY INTACT AND PATENT WITH BROWN/GREEN LIQUID STOOL IN BAG. PATENT HAS LEFT CHEST WALL HEMODIALYSIS CATHETER THAT IS CLEAN DRY AND INTACT. PATIENT HAS LEFT UPPER ARM SHUNT THAT IS NOT WORKING. PATIENT HAS RIGHT UPPER ARM PICC TRIPLE LUMEN CATHETER WITH LEVOPHED AT 3MCG. BED IN LOW LOCK POSITION WITH RAILS UP X 2. CALL LIGHT WITHIN REACH AND ALL SAFETY MEASURES ENSURED AND CARRIED OUT. WILL CONTINUE TO MONITOR.
[2019-01-01] MEDS: SEVELAMER CARBONATE 800 MG TABLET PO SCH ×3 (08:22→18:28)
[2019-01-01] MEDS: FOLIC ACID 1 MG TABLET PO SCH (08:23)
[2019-01-01] MEDS: PREGABALIN 100 MG CAPSULE PO SCH ×2 (08:23→19:59)
[2019-01-01] MEDS: VIT B CMPLX 3/FA/VIT C/BIOTIN 1 TAB TABLET PO SCH (08:23)
[2019-01-01] MEDS: LACTOBACILLUS RHAMNOSUS GG 1 EACH CAP.SPRINK PO SCH ×2 (08:23→18:27)
[2019-01-01] MEDS: DULOXETINE HCL 30 MG CAPSULE.DR PO SCH ×2 (08:23→21:35)
[2019-01-01] MEDS: FERROUS SULFATE (325 MG) 325 MG/TAB TABLET PO SCH ×2 (08:24→18:28)
[2019-01-01] MEDS: GABAPENTIN 100 MG CAPSULE PO SCH ×3 (08:24→19:59)
[2019-01-01] MEDS: HYDROGEL DRESSING 90 GM TUBE TP SCH (08:24)
[2019-01-01] MEDS: MIDODRINE HCL (5MG) 5 MG TABLET PO SCH ×3 (08:24→18:28)
[2019-01-01] MEDS: CLOTRIMAZOLE 1% 15 GM TUBE TP SCH ×2 (08:25→18:45)
[2019-01-01] MEDS: NEOMY SULF/BACITRAC ZN/POLY 15 GM TUBE TP SCH (08:25)
[2019-01-01] MEDS: MUPIROCIN OINT 2% 22 GM TUBE SCH ×2 (09:00→21:36)
--- NOTE | 2019-01-01 09:00 | NUR ---
sericulture teacher notes called pharmacy to bring bactroban.
--- NOTE | 2019-01-01 19:10 | NUR ---
COAL HIKER END OF SHIFT NOTES PT IN BED, ASLEEP, WITH HD AT BEDSIDE. PT ON 5MCG LEVOPHED WHILE ON HD. DID NOT GIVE LYRICA/NEURONTIN/MAXIPIME D/T HEMODIALYSIS. ENDORSED TO PM NURSE TO GIVE THESE MEDS. PT REFUSED HAND DRESSING CHANGE. ILEOSTOMY BAG IN PLACE DRAINING GREEN LIQUID. PT NOT IN DISTRESS AT THIS TIME. VS STABLE. ON TELE SR.
[2019-01-01] MEDS: CEFEPIME 1 GM in IV D5W 50 ML IV SCH (19:59)
--- NOTE | 2019-01-01 20:03 | NUR ---
LYRICA , NEURONTIN AND MAXIPIME GIVEN LATE DUE TO DIALYSIS.
[2019-01-01] MEDS ORDERED: ALTEPLASE CATHFLO 2 MG/VIAL XX ONE ×3 (20:30)
[2019-01-01] MEDS: DOCUSATE SODIUM 100 MG CAPSULE PO SCH (21:35)
[2019-01-01] MEDS: *INSULIN REGULAR(HUMULIN R)HUM 100 UNIT/ML VIAL SQ PRN (21:47)
--- NOTE | 2019-01-01 22:00 | NUR ---
PATIENT REFUSED WOUND CARE AND REQUESTED TO BE LEFT ALONE. EDUCATED PATIENT ON IMPORTANCE OF WOUND CARE AND PATIENT STILL REQUESTED TO BE LEFT ALONE SO HE CAN SLEEP.
[2019-01-02] VITALS (99 sets, daily range): BP systolic 57–152; BP diastolic 27–91
[2019-01-02 05:16] LABS: BASOPHILS # (AUTO) 0.1 /CMM (0.0-0.2); BASOPHILS % (AUTO) 1.2 % (0.0-2.0); EOSINOPHILS % (AUTO) 0.5 % (0.0-6.0); HEMATOCRIT 27 % (39-51); HEMOGLOBIN 8.8 g/dL (13.5-17.5); LYMPHOCYTES # (AUTO) 0.6 /CMM (0.8-4.8); LYMPHOCYTES % (AUTO) 5.9 % (20.0-44.0); MEAN CORPUSCULAR HGB CONC 32 g/dl (31.0-36.0); MEAN CORPUSCULAR VOLUME 89 fL (80-96); MONOCYTES # (AUTO) 0.7 /CMM (0.1-1.30); MONOCYTES % (AUTO) 6.2 % (2.0-12.0); NEUTROPHILS # (AUTO) 9.2 /CMM (1.8-8.9); NEUTROPHILS % (AUTO) 86.2 % (43.0-81.0); PLATELET COUNT (AUTO) 197 /CMM (150-450); RED BLOOD CELL COUNT(AUTO) 3.06 MIL/uL (4.5-6.0); WHITE BLOOD COUNT (AUTO) 10.7 K/uL (4.3-11.0)
[2019-01-02 05:32] LABS: CALCIUM, SERUM 8.7 mg/dL (8.5-10.1); CREATININE 6.4 mg/dL (0.6-1.3); POTASSIUM 3.8 mmol/L (3.5-5.1)
[2019-01-02 06:08] LABS: BAND % (MANUAL) 2 % (0.0-5.0); LYMPHOCYTES % (MANUAL) 10 % (16-48); MONOCYTES % (MANUAL) 4 % (0-11.0); NEUTROPHILS % (MANUAL) 84 (42-76)
[2019-01-02] MEDS: PANTOPRAZOLE 40 MG TABLET.DR PO SCH (06:36)
[2019-01-02] MEDS: BLOOD SUGAR DIAGNOSTIC 1 EACH STRIP IN SCH ×4 (06:36→21:52)
[2019-01-02] MEDS: INSULIN REGULAR, HUMAN 100 UNIT/ML 3 ML VIAL SQ PRN ×3 (06:46→17:05)
--- NOTE | 2019-01-02 07:10 | NUR ---
GUEST SERVICES ASSISTANT INITIAL NOTES Rec'd pt awake on bed, not in any distress, A/O x 2 w/ confusion, denies any pain/discomfort. On room air, no SOB. SR/ST on telemonitor. Has SIRIA PICC line w/ Levophed drip x 6 mcg infusing well. Has LCW HD cath & JESÚS AV shunt (per report, w/ MD's order okay to use the arm for BP taking). Has ileostomy noted leaking, changed. Safety precaution in place w/ bed in lowest & locked pos. Call light placed w/in reach. Isolation prec in place. Will cont to monitor & attend pt needs.
[2019-01-02] MEDS: SEVELAMER CARBONATE 800 MG TABLET PO SCH ×3 (07:44→17:05)
--- NOTE | 2019-01-02 08:30 | NUR ---
Pt seen & examined by Dr. Irvin w/ orders to change Midodrine to 5mg PO TID.
[2019-01-02] MEDS: PREGABALIN 100 MG CAPSULE PO SCH ×2 (09:03→16:15)
[2019-01-02] MEDS: FERROUS SULFATE (325 MG) 325 MG/TAB TABLET PO SCH ×2 (09:03→16:15)
[2019-01-02] MEDS: LACTOBACILLUS RHAMNOSUS GG 1 EACH CAP.SPRINK PO SCH ×2 (09:03→16:14)
[2019-01-02] MEDS: GABAPENTIN 100 MG CAPSULE PO SCH ×3 (09:03→16:15)
[2019-01-02] MEDS: FOLIC ACID 1 MG TABLET PO SCH (09:03)
[2019-01-02] MEDS: VIT B CMPLX 3/FA/VIT C/BIOTIN 1 TAB TABLET PO SCH (09:03)
[2019-01-02] MEDS: DULOXETINE HCL 30 MG CAPSULE.DR PO SCH ×2 (09:03→21:28)
[2019-01-02] MEDS: HYDROGEL DRESSING 90 GM TUBE TP SCH (09:04)
[2019-01-02] MEDS: MUPIROCIN OINT 2% 22 GM TUBE SCH ×2 (09:04→21:29)
[2019-01-02] MEDS: CLOTRIMAZOLE 1% 15 GM TUBE TP SCH ×2 (09:04→16:15)
[2019-01-02] MEDS: MIDODRINE HCL (5MG) 5 MG TABLET PO SCH ×3 (09:04→16:15)
[2019-01-02] MEDS: NEOMY SULF/BACITRAC ZN/POLY 15 GM TUBE TP SCH (09:05)
[2019-01-02] MEDS: Z GUARD REMEDY 2 OZ OINT TP PRN (09:05)
--- NOTE | 2019-01-02 11:24 | NUR ---
Pt seen & examined by Dr. Morrow.
[2019-01-02] MEDS: NOREPINEPHRINE 16 MG in IV D5W 500 ML IV PRN (11:49)
--- NOTE | 2019-01-02 12:00 | NUR ---
BS 316 mg/dL. Pt has been non compliant w/ his diet. Gets easily frustrated, complains about the food that he is getting. Health teaching constantly being given to the pt but still not following about the diet he is currently on.
[2019-01-02] MEDS: HYDROCODONE/APAP 5/325MG 1 EACH TABLET PO PRN (12:08)
[2019-01-02] MEDS: CEFEPIME 1 GM in IV D5W 50 ML IV SCH (17:33)
--- NOTE | 2019-01-02 18:44 | NUR ---
Pt requesting for eye drops. Called Dr. Irvin & ordered Artificial Tears 1 drop each eye q8H PRN.
--- NOTE | 2019-01-02 18:45 | NUR ---
PERSONAL LINES UNDERWRITER CLOSING NOTES Pt resting on bed, not in any distress. Tolerated room air, no SOB. SR on telemonitor. SIRIA PICC line kept patent & intact w/ no s/sx of infection/infiltration noted w/ Levophed drip x 2 mcg infusing well. LCW HD cath in place. Ileostomy clean, dry & intact. Safety precaution kept in place w/ bed in lowest & locked pos. Call light placed w/in reach. Isolation prec observed. Will endorse to PM RN for SADIA.
[2019-01-02] MEDS ORDERED: POLYVINYL ALCOHOL 15 ML BOTTLE EACHEYE PRN (19:00)
--- NOTE | 2019-01-02 20:36 | NUR ---
ICU/C D AREA SUPERVISOR NEURO CHECKS WERE DISCONTINUED. DUE TO PT BEING IN THE ICU FOR OVER 1 WEEK. PT IS ALERT AND ABLE TO MAKE NEEDS KNOWN. CHARGE NURSE IS AWARE OF THIS. SAID IT'S UNNECESSARY. WILL CONTINUE TO MONITOR THIS PT.
[2019-01-02] MEDS: DOCUSATE SODIUM 100 MG CAPSULE PO SCH (21:28)
[2019-01-02] MEDS: HYDROCODONE/APAP 10/325MG 1 EA TABLET PO PRN (21:56)
[2019-01-02] MEDS: *INSULIN REGULAR(HUMULIN R)HUM 100 UNIT/ML VIAL SQ PRN (21:57)
--- NOTE | 2019-01-02 22:00 | NUR ---
ICU/BEER MERCHANT 2199- PT COMPLAINED ABOUT PAIN TO HANDS, PT REQUESTED NORCO 10/325 MG 1 TAB FOR PAIN RATED 8/10. PT WAS GIVEN THIS ALONG WITH SANDWICH. 2149- PT'S BLOOD SUGAR IS 195, THIS WAS COVERED WITH AGGRESSIVE SLIDING SCALE FOR HS. WILL CONTINUE TO MONITOR THIS PT'S SUGAR ORDERED BY .
--- NOTE | 2019-01-02 23:09 | NUR ---
ICU/TACTICAL RESPONSE GROUP OFFICER DR. ARELLANO CAME TO SEE PT ABOUT HANDS AND FEET. NO NEW ORDERS AT THIS TIME WAS NOTED.
[2019-01-03] VITALS (104 sets, daily range): BP systolic 67–159; BP diastolic 13–100
--- NOTE | 2019-01-03 01:15 | NUR ---
ICU/COMPLAINT OPERATOR PT'S BLOOD PRESSURE IS 135'S-150'S, NOTIFIED CHARGE NURSE THAT PT'S BP HAS BEEN CYCLED THROUGH HIGH. CHARGE DECREASED LEVO DOWN TO 2MCG FROM 4MCG. WILL CONTINUE TO CLOSELY MONITOR THIS PT AND HIS BLOOD PRESSURE.
--- NOTE | 2019-01-03 02:00 | NUR ---
ICU/AREA FIELD WORKER PT REFUSED AM & PM CARE. PT REQUESTED TO SLEEP. PT SAID HE IS A LIGHT SLEEPER. NO ACUTE DISTRESS SEEN AT THIS TIME.
[2019-01-03] MEDS: HYDROCODONE/APAP 10/325MG 1 EA TABLET PO PRN ×2 (04:22→08:35)
--- NOTE | 2019-01-03 04:30 | NUR ---
ICU/DIETARY INTERNSHIP PT COMPLAINED ABOUT PAIN TO HANDS, PT REQUESTED NORCO 10/325 MG 1 TAB FOR PAIN RATED 8/10. WILL CONTINUE TO MONITOR THIS PT'S PAIN. NO ACUTE DISTRESS SEEN AT THIS TIME. CALL LIGHT WITHIN REACH.
--- NOTE | 2019-01-03 05:30 | NUR ---
ICU/HAIRSPRING SETTER AM LABS WERE DRAWN, AWAIT FOR ANY CRITICAL LAB VALUES.
[2019-01-03 05:35] LABS: BASOPHILS # (AUTO) 0.1 /CMM (0.0-0.2); BASOPHILS % (AUTO) 0.8 % (0.0-2.0); EOSINOPHILS % (AUTO) 1.2 % (0.0-6.0); HEMATOCRIT 31 % (39-51); HEMOGLOBIN 9.6 g/dL (13.5-17.5); LYMPHOCYTES # (AUTO) 1.2 /CMM (0.8-4.8); LYMPHOCYTES % (AUTO) 11.2 % (20.0-44.0); MEAN CORPUSCULAR HGB CONC 31 g/dl (31.0-36.0); MEAN CORPUSCULAR VOLUME 91 fL (80-96); MONOCYTES # (AUTO) 0.9 /CMM (0.1-1.30); MONOCYTES % (AUTO) 7.8 % (2.0-12.0); NEUTROPHILS # (AUTO) 8.8 /CMM (1.8-8.9); PLATELET COUNT (AUTO) 196 /CMM (150-450); RED BLOOD CELL COUNT(AUTO) 3.38 MIL/uL (4.5-6.0); WHITE BLOOD COUNT (AUTO) 11.1 K/uL (4.3-11.0)
[2019-01-03 06:13] LABS: CALCIUM, SERUM 8.9 mg/dL (8.5-10.1); MAGNESIUM 1.8 mg/dL (1.8-2.4); PHOSPHORUS 5.4 mg/dL (2.5-4.9); POTASSIUM 4.2 mmol/L (3.5-5.1)
[2019-01-03 06:22] LABS: CREATININE 8.4 mg/dL (0.6-1.3)
--- NOTE | 2019-01-03 07:10 | NUR ---
CARD GAME OPERATOR INITIAL NOTES Rec'd pt asleep on bed, not in any distress, A/O x 2 w/ confusion, denies any pain/discomfort. On room air, no SOB. SR on telemonitor. Has SIRIA PICC line w/ Levophed drip x 2 mcg infusing well. Has LCW HD cath. Has ileostomy in place. Safety precaution in place w/ bed in lowest & locked pos. Call light placed w/in reach. Isolation prec in place. Will cont to monitor & attend pt needs.
[2019-01-03] MEDS: PANTOPRAZOLE 40 MG TABLET.DR PO SCH (07:16)
[2019-01-03] MEDS: SEVELAMER CARBONATE 800 MG TABLET PO SCH ×3 (07:16→17:23)
[2019-01-03] MEDS: BLOOD SUGAR DIAGNOSTIC 1 EACH STRIP IN SCH ×4 (07:20→21:05)
[2019-01-03] MEDS: INSULIN REGULAR, HUMAN 100 UNIT/ML 3 ML VIAL SQ PRN ×4 (07:21→21:48)
[2019-01-03] MEDS: FOLIC ACID 1 MG TABLET PO SCH (08:25)
[2019-01-03] MEDS: MUPIROCIN OINT 2% 22 GM TUBE SCH ×2 (08:25→21:06)
[2019-01-03] MEDS: GABAPENTIN 100 MG CAPSULE PO SCH ×3 (08:25→17:23)
[2019-01-03] MEDS: VIT B CMPLX 3/FA/VIT C/BIOTIN 1 TAB TABLET PO SCH (08:25)
[2019-01-03] MEDS: DULOXETINE HCL 30 MG CAPSULE.DR PO SCH ×2 (08:25→21:05)
[2019-01-03] MEDS: LACTOBACILLUS RHAMNOSUS GG 1 EACH CAP.SPRINK PO SCH ×2 (08:25→17:22)
[2019-01-03] MEDS: FERROUS SULFATE (325 MG) 325 MG/TAB TABLET PO SCH ×2 (08:25→17:23)
[2019-01-03] MEDS: MIDODRINE HCL (5MG) 5 MG TABLET PO SCH ×3 (08:25→17:23)
[2019-01-03] MEDS: PREGABALIN 100 MG CAPSULE PO SCH ×2 (08:25→17:23)
[2019-01-03] MEDS: NEOMY SULF/BACITRAC ZN/POLY 15 GM TUBE TP SCH (08:26)
[2019-01-03] MEDS: HYDROGEL DRESSING 90 GM TUBE TP SCH (08:26)
[2019-01-03] MEDS: Z GUARD REMEDY 2 OZ OINT TP PRN (08:26)
[2019-01-03] MEDS: CLOTRIMAZOLE 1% 15 GM TUBE TP SCH ×2 (08:26→17:23)
--- NOTE | 2019-01-03 09:00 | NUR ---
Dr. Irvin updated about pt status & condition. Addendum: 01/03/19 at 0904 by ERI PEDERSEN RN Addendum: made aware that pt c/o abdominal pain. Per it's already chronic, NNO.
[2019-01-03] MEDS: NOREPINEPHRINE 16 MG in IV D5W 500 ML IV PRN (15:45)
--- NOTE | 2019-01-03 16:30 | NUR ---
HD ended c/o Josie HERNANDEZ, no UF taken. Levophed drip titrated accordingly to keep SBP >90 & MAP >65.
[2019-01-03] MEDS: VANCOMYCIN 500 MG in IV D5W 100 ML IV PRN (16:46)
[2019-01-03] MEDS: CEFEPIME 1 GM in IV D5W 50 ML IV SCH (17:34)
--- NOTE | 2019-01-03 18:50 | NUR ---
CONTACT LENS BLOCKER AND CUTTER CLOSING NOTES Pt sitting on EOB, not in any distress, having dinner. Tolerated room air, no SOB. SR on telemonitor. SIRIA PICC line kept patent & intact w/ no s/sx of infection/infiltration noted w/ Levophed drip x 2 mcg infusing well. LCW HD cath in place. Ileostomy clean, dry & intact. Safety precaution kept in place w/ bed in lowest & locked pos. Call light placed w/in reach. Isolation prec observed. Will endorse to PM RN for SADIA.
[2019-01-03] MEDS: DOCUSATE SODIUM 100 MG CAPSULE PO SCH (21:05)
[2019-01-04] VITALS (102 sets, daily range): BP systolic 63–215; BP diastolic 21–175
[2019-01-04 04:21] LABS: BASOPHILS # (AUTO) 0.1 /CMM (0.0-0.2); BASOPHILS % (AUTO) 0.6 % (0.0-2.0); EOSINOPHILS % (AUTO) 0.6 % (0.0-6.0); HEMATOCRIT 30 % (39-51); HEMOGLOBIN 9.3 g/dL (13.5-17.5); LYMPHOCYTES # (AUTO) 1.7 /CMM (0.8-4.8); LYMPHOCYTES % (AUTO) 12.3 % (20.0-44.0); MEAN CORPUSCULAR HGB CONC 31 g/dl (31.0-36.0); MEAN CORPUSCULAR VOLUME 89 fL (80-96); MONOCYTES % (AUTO) 7.2 % (2.0-12.0); NEUTROPHILS # (AUTO) 11.2 /CMM (1.8-8.9); NEUTROPHILS % (AUTO) 79.3 % (43.0-81.0); PLATELET COUNT (AUTO) 207 /CMM (150-450); RED BLOOD CELL COUNT(AUTO) 3.34 MIL/uL (4.5-6.0); WHITE BLOOD COUNT (AUTO) 14.1 K/uL (4.3-11.0)
[2019-01-04 04:29] LABS: CALCIUM, SERUM 9.2 mg/dL (8.5-10.1); CREATININE 6.3 mg/dL (0.6-1.3); POTASSIUM 4.6 mmol/L (3.5-5.1)
[2019-01-04] MEDS ORDERED: CLONIDINE HCL 0.1 MG TABLET ONE (04:54)
[2019-01-04] MEDS ORDERED: LABETALOL HCL (100MG) 100 MG TABLET ONE (04:54)
[2019-01-04] MEDS ORDERED: hydrALAZINE HCL 25 MG TABLET ONE (04:55)
[2019-01-04] MEDS ORDERED: METOCLOPRAMIDE HCL 10 MG TABLET ONE (04:55)
--- NOTE | 2019-01-04 05:14 | NUR ---
MEDICATION APRESOLINE- 75MG, CATAPRES- 0.3MG, REGLAN- 5MG AND TRANDATE-600MG PULLED FROM [facility] FOR WRONG PATIENT, BUT ADMINISTERED AND SCANNED FOR CORRECT PATIENT IN ROOM 257.
--- NOTE | 2019-01-04 06:22 | NUR ---
PATIENT REMAINS IN NO ACUTE DISTRESS IN BED. PATIENT IS A/O X 3 AND ABLE TO MAKE NEEDS KNOWN. PATIENT DID NOT HAVE ANY SIGNIFICANT CHANGE IN CONDITION DURING SHIFT. ALL NEEDS MET, ALL ORDERS CARRIED OUT. WILL ENDORSE CARE TO AM RN FOR CONTINUITY OF CARE.
[2019-01-04] MEDS: HYDROCODONE/APAP 10/325MG 1 EA TABLET PO PRN ×2 (06:49→20:07)
[2019-01-04] MEDS: PANTOPRAZOLE 40 MG TABLET.DR PO SCH (06:50)
--- NOTE | 2019-01-04 07:10 | NUR ---
RN INITIAL NOTES RECEIVED PT AWAKE, A/OX3. ON ROOM AIR. NO RESPIRATORY DISTRESS NOTED. DENIES PAIN AT THIS TIME. SIRIA PICC IN PLACE. ON LEVO AT 3MCG/MIN. WILL MONITOR BP. LEFT CHESTWALL HD CATH IN PLACE. DRESSING CLEAN AND DRY. PT CLEAN AND DRY. COMFORTABLE. CALL LIGHT WITHIN REACH. WILL CLOSELY MONITOR
[2019-01-04] MEDS: BLOOD SUGAR DIAGNOSTIC 1 EACH STRIP IN SCH ×4 (07:34→22:12)
[2019-01-04] MEDS: FOLIC ACID 1 MG TABLET PO SCH (08:34)
[2019-01-04] MEDS: GABAPENTIN 100 MG CAPSULE PO SCH ×3 (08:34→17:14)
[2019-01-04] MEDS: SEVELAMER CARBONATE 800 MG TABLET PO SCH ×3 (08:34→17:13)
[2019-01-04] MEDS: PREGABALIN 100 MG CAPSULE PO SCH ×2 (08:35→17:14)
[2019-01-04] MEDS: MUPIROCIN OINT 2% 22 GM TUBE SCH ×2 (08:35→20:55)
[2019-01-04] MEDS: NEOMY SULF/BACITRAC ZN/POLY 15 GM TUBE TP SCH (08:35)
[2019-01-04] MEDS: MIDODRINE HCL (5MG) 5 MG TABLET PO SCH ×3 (08:35→17:14)
[2019-01-04] MEDS: VIT B CMPLX 3/FA/VIT C/BIOTIN 1 TAB TABLET PO SCH (08:35)
[2019-01-04] MEDS: FERROUS SULFATE (325 MG) 325 MG/TAB TABLET PO SCH ×2 (08:35→17:14)
[2019-01-04] MEDS: DULOXETINE HCL 30 MG CAPSULE.DR PO SCH ×2 (08:35→20:51)
[2019-01-04] MEDS: CLOTRIMAZOLE 1% 15 GM TUBE TP SCH ×2 (08:35→17:14)
[2019-01-04] MEDS: HYDROGEL DRESSING 90 GM TUBE TP SCH (08:36)
[2019-01-04] MEDS: INSULIN REGULAR, HUMAN 100 UNIT/ML 3 ML VIAL SQ PRN ×2 (08:41→12:30)
[2019-01-04] MEDS: LACTOBACILLUS RHAMNOSUS GG 1 EACH CAP.SPRINK PO SCH ×2 (09:00→17:13)
[2019-01-04] MEDS ORDERED: MIDODRINE HCL (5MG) 5 MG TABLET PO SCH (11:30)
--- NOTE | 2019-01-04 11:30 | NUR ---
RN NOTES SEEN AND EXAMINED BY DR SHAH. AWARE OF LAB VALUES. PT STILL ON LEVO, KEPT MAP >65. MIDODRINE INCREASED TO 10MG TID. WILL CLOSELY MONITOR.
[2019-01-04] MEDS: NOREPINEPHRINE 16 MG in IV D5W 500 ML IV PRN (14:48)
[2019-01-04] MEDS: CEFEPIME 1 GM in IV D5W 50 ML IV SCH (17:33)
--- NOTE | 2019-01-04 18:27 | NUR ---
RN CLOSING NOTES NO SIGNIFICANT CHANGE NOTED. PT REMAINS ON LEVO. MAP KEPT >65. ILEOSTOMY IN PLACE. CLEAN AND DRY. PT ABLE TO REPOSITION SELF. KEPT COMFORTABLE. CALL LIGHT WITHIN REACH. WILL ENDORSE FOR CONTINUITY OF CARE
[2019-01-04] MEDS: DOXYCYCLINE HYCLATE (100 MG) 100 MG TABLET PO SCH (20:51)
[2019-01-04] MEDS: DOCUSATE SODIUM 100 MG CAPSULE PO SCH (22:17)
[2019-01-04] MEDS: *INSULIN REGULAR(HUMULIN R)HUM 100 UNIT/ML VIAL SQ PRN (22:23)
[2019-01-05] VITALS (81 sets, daily range): BP systolic 64–152; BP diastolic 20–88
[2019-01-05 04:16] LABS: BASOPHILS # (AUTO) 0.1 /CMM (0.0-0.2); BASOPHILS % (AUTO) 0.9 % (0.0-2.0); EOSINOPHILS % (AUTO) 1.6 % (0.0-6.0); HEMATOCRIT 30 % (39-51); HEMOGLOBIN 9.7 g/dL (13.5-17.5); LYMPHOCYTES # (AUTO) 1.7 /CMM (0.8-4.8); LYMPHOCYTES % (AUTO) 12.9 % (20.0-44.0); MEAN CORPUSCULAR HGB CONC 32 g/dl (31.0-36.0); MEAN CORPUSCULAR VOLUME 89 fL (80-96); MONOCYTES # (AUTO) 1.1 /CMM (0.1-1.30); MONOCYTES % (AUTO) 7.9 % (2.0-12.0); NEUTROPHILS # (AUTO) 10.2 /CMM (1.8-8.9); NEUTROPHILS % (AUTO) 76.7 % (43.0-81.0); PLATELET COUNT (AUTO) 222 /CMM (150-450); WHITE BLOOD COUNT (AUTO) 13.3 K/uL (4.3-11.0)
[2019-01-05 04:30] LABS: CALCIUM, SERUM 9.4 mg/dL (8.5-10.1); POTASSIUM 4.7 mmol/L (3.5-5.1)
[2019-01-05 04:31] LABS: CREATININE 7.9 mg/dL (0.6-1.3)
[2019-01-05] MEDS: BLOOD SUGAR DIAGNOSTIC 1 EACH STRIP IN SCH ×4 (07:50→22:33)
[2019-01-05] MEDS: PANTOPRAZOLE 40 MG TABLET.DR PO SCH (07:50)
[2019-01-05] MEDS: SEVELAMER CARBONATE 800 MG TABLET PO SCH ×3 (07:50→17:04)
[2019-01-05] MEDS: INSULIN REGULAR, HUMAN 100 UNIT/ML 3 ML VIAL SQ PRN ×3 (07:51→17:13)
[2019-01-05] MEDS: LACTOBACILLUS RHAMNOSUS GG 1 EACH CAP.SPRINK PO SCH ×2 (09:41→17:04)
[2019-01-05] MEDS: DULOXETINE HCL 30 MG CAPSULE.DR PO SCH ×2 (09:41→22:32)
[2019-01-05] MEDS: FOLIC ACID 1 MG TABLET PO SCH (09:41)
[2019-01-05] MEDS: MIDODRINE HCL (5MG) 5 MG TABLET PO SCH ×3 (09:41→17:04)
[2019-01-05] MEDS: PREGABALIN 100 MG CAPSULE PO SCH ×2 (09:41→17:04)
[2019-01-05] MEDS: FERROUS SULFATE (325 MG) 325 MG/TAB TABLET PO SCH ×2 (09:41→17:04)
[2019-01-05] MEDS: DOXYCYCLINE HYCLATE (100 MG) 100 MG TABLET PO SCH ×2 (09:41→22:32)
[2019-01-05] MEDS: VIT B CMPLX 3/FA/VIT C/BIOTIN 1 TAB TABLET PO SCH (09:41)
[2019-01-05] MEDS: GABAPENTIN 100 MG CAPSULE PO SCH ×3 (09:42→17:03)
[2019-01-05] MEDS: HYDROGEL DRESSING 90 GM TUBE TP SCH (09:42)
[2019-01-05] MEDS: MUPIROCIN OINT 2% 22 GM TUBE SCH ×2 (09:43→22:34)
[2019-01-05] MEDS: CLOTRIMAZOLE 1% 15 GM TUBE TP SCH ×2 (09:43→17:04)
[2019-01-05] MEDS: NEOMY SULF/BACITRAC ZN/POLY 15 GM TUBE TP SCH (09:44)
--- NOTE | 2019-01-05 09:56 | NUR ---
RN NOTE 0715: Received patient awake, A/Ox3. Room air. With SIRIA PICC intact, Levo at 3mcg, will titrate as ordered. Right hand dressing CDI. With RLQ ileostomy tube intact, noted with loose greenish stool. SR with BBB 70's on the monitor. JESÚS AV petty + bruit/thrill, LCW HD cath intact. On contact isolation prec for MRSA nares, maintained and observed. 0950: No any significant changes noted at this time. Kept clean, warm and dry. Needs attended. Kept call light at reach.
[2019-01-05] MEDS: NOREPINEPHRINE 16 MG in IV D5W 500 ML IV PRN (15:09)
--- NOTE | 2019-01-05 19:30 | NUR ---
RECYCLING OPERATOR NOTES RECEIVED PATIENT IN BED, SITTING UP AT BEDSIDE, EATING DINNER. PATIENT A/O X3, ABLE TO VERBALIZE NEEDS, DENIES PAIN/DISCOMFORT, TOLERATING ROOM AIR WELL, NO SOB NOTED. TELE MONITOR READS SR, HR 89 BPM. SIRIA PICC PATENT AND INTACT, TKO AT THIS TIME. RLQ ILEOSTOMY INTACT, DRAINING SEMI LIQUID GREEN STOOL TO BAG. PLAN OF CARE DISCUSSED WITH PATIENT, INCLUDING PENDING HD @ 1999. WILL MONITOR CLOSELY
--- NOTE | 2019-01-05 19:55 | NUR ---
CANE FEEDER NOTES PATIENT'S ILEOSTOMY BAG NOTED TO START LEAKING. PARTIAL BED BATH RENDERED, ILEOSTOMY BAG CHANGED, PATIENT TOLERATED WELL
--- NOTE | 2019-01-05 20:00 | NUR ---
LINE O SCRIBE OPERATOR NOTES HD NURSE AT BEDSIDE TO START HD TREATMENT. VSS AT THIS TIME
--- NOTE | 2019-01-05 20:45 | NUR ---
WARP DRAWER NOTES BP 64/39, LEVOPHED GTT RESTARTED
[2019-01-05] MEDS: DOCUSATE SODIUM 100 MG CAPSULE PO SCH (22:32)
--- NOTE | 2019-01-05 23:00 | NUR ---
BOX CAR BRACER NOTES HD COMPLETE, NO OUTPUT, UF ONLY. CONTINUES ON LOW DOSE LEVOPHED GTT, WILL MONITOR AND TITRATE ACCORDINGLY
[2019-01-06] VITALS (95 sets, daily range): BP systolic 60–147; BP diastolic 17–127
[2019-01-06] MEDS: HYDROCODONE/APAP 10/325MG 1 EA TABLET PO PRN ×2 (03:18→23:04)
[2019-01-06 04:49] LABS: BASOPHILS # (AUTO) 0.1 /CMM (0.0-0.2); BASOPHILS % (AUTO) 0.7 % (0.0-2.0); EOSINOPHILS % (AUTO) 0.7 % (0.0-6.0); HEMATOCRIT 32 % (39-51); LYMPHOCYTES # (AUTO) 1.6 /CMM (0.8-4.8); LYMPHOCYTES % (AUTO) 11.2 % (20.0-44.0); MEAN CORPUSCULAR HGB CONC 31 g/dl (31.0-36.0); MEAN CORPUSCULAR VOLUME 87 fL (80-96); MONOCYTES # (AUTO) 0.9 /CMM (0.1-1.30); MONOCYTES % (AUTO) 6.1 % (2.0-12.0); NEUTROPHILS # (AUTO) 11.8 /CMM (1.8-8.9); NEUTROPHILS % (AUTO) 81.3 % (43.0-81.0); PLATELET COUNT (AUTO) 234 /CMM (150-450); RED BLOOD CELL COUNT(AUTO) 3.68 MIL/uL (4.5-6.0); WHITE BLOOD COUNT (AUTO) 14.5 K/uL (4.3-11.0)
[2019-01-06 04:57] LABS: CALCIUM, SERUM 9.3 mg/dL (8.5-10.1); CREATININE 6.4 mg/dL (0.6-1.3); MAGNESIUM 1.8 mg/dL (1.8-2.4); PHOSPHORUS 3.5 mg/dL (2.5-4.9); POTASSIUM 4.2 mmol/L (3.5-5.1)
--- NOTE | 2019-01-06 05:00 | NUR ---
ELECTRICAL LOGGING OPERATOR NOTES PATIENT SLEEPING AT THIS TIME. WOUND DRESSINGS CLEAN AND DRY, REFUSING BED BATH. WILL CONTINUE TO MONITOR
[2019-01-06] MEDS: BLOOD SUGAR DIAGNOSTIC 1 EACH STRIP IN SCH ×4 (07:28→22:45)
--- NOTE | 2019-01-06 08:00 | NUR ---
RN INITIAL NOTES RECEIVED PT ASLEEP IN BED A/OX3. ON ROOM AIR. NO RESPIRATORY DISTRESS NOTED. NO PAIN AT THIS TIME. SIRIA PICC IN PLACE. ON LEVO AT 2MCG/MIN. WILL MONITOR BP. LEFT CHEST WALL HD CATH IN PLACE. DRESSING CLEAN AND DRY. PT CLEAN AND DRY.SAFETY PRECAUTIONS IN PLACE BED IN LOW LOCKED POSITION . CALL LIGHT AND BELONGINGS WITHIN REACH. WILL CLOSELY MONITOR
[2019-01-06] MEDS: INSULIN REGULAR, HUMAN 100 UNIT/ML 3 ML VIAL SQ PRN ×4 (08:57→22:46)
[2019-01-06] MEDS: PANTOPRAZOLE 40 MG TABLET.DR PO SCH (09:47)
[2019-01-06] MEDS: MIDODRINE HCL (5MG) 5 MG TABLET PO SCH ×3 (09:47→17:23)
[2019-01-06] MEDS: FOLIC ACID 1 MG TABLET PO SCH (09:47)
[2019-01-06] MEDS: GABAPENTIN 100 MG CAPSULE PO SCH ×3 (09:47→17:23)
[2019-01-06] MEDS: PREGABALIN 100 MG CAPSULE PO SCH ×2 (09:47→17:23)
[2019-01-06] MEDS: VIT B CMPLX 3/FA/VIT C/BIOTIN 1 TAB TABLET PO SCH (09:48)
[2019-01-06] MEDS: CLOTRIMAZOLE 1% 15 GM TUBE TP SCH ×2 (09:48→17:24)
[2019-01-06] MEDS: LACTOBACILLUS RHAMNOSUS GG 1 EACH CAP.SPRINK PO SCH ×2 (09:48→17:23)
[2019-01-06] MEDS: HYDROGEL DRESSING 90 GM TUBE TP SCH (09:48)
[2019-01-06] MEDS: FERROUS SULFATE (325 MG) 325 MG/TAB TABLET PO SCH ×2 (09:48→17:23)
[2019-01-06] MEDS: DOXYCYCLINE HYCLATE (100 MG) 100 MG TABLET PO SCH ×2 (09:48→21:57)
[2019-01-06] MEDS: DULOXETINE HCL 30 MG CAPSULE.DR PO SCH ×2 (09:48→21:57)
[2019-01-06] MEDS: NEOMY SULF/BACITRAC ZN/POLY 15 GM TUBE TP SCH (09:48)
[2019-01-06] MEDS: MUPIROCIN OINT 2% 22 GM TUBE SCH ×2 (09:49→21:58)
[2019-01-06] MEDS: SEVELAMER CARBONATE 800 MG TABLET PO SCH ×3 (09:50→17:23)
--- NOTE | 2019-01-06 16:41 | NUR ---
PATIENT SLEEPING THROUGHOUT THE DAY DOES NOT WANT TO BE DISTURBED OR CLEANED UP.
[2019-01-06] MEDS: NOREPINEPHRINE 16 MG in IV D5W 500 ML IV PRN (18:01)
--- NOTE | 2019-01-06 18:45 | NUR ---
VAMP STITCHER NOTES BED BATH GIVEN ILEOSTOMY CHANGED, ALL NEEDS MET NO CHANGE IN CONDITION ENDORSED TO NOC
--- NOTE | 2019-01-06 19:45 | NUR ---
ICU/ANALYTICAL TECHNICIAN RECEIVED REPORT FROM DAY SHIFT NURSE. SEE FLOWSHEET FOR ASSESSMENT. THERE ARE A FEW SKIN ISSUES THAT PT HAS, WHICH IS ADDRESSED ON FLOWSHEET ALONG WITH THE INTERVENTION TO EACH.PT IS ON RENAL DIET, WHICH HE IS TOLERATING. PT REFUSED ANY ASST. WITH TURNING AND REPOSITIONING FOR COMFORT AND CARE. WILL MONITOR THIS PT.
[2019-01-06] MEDS: DOCUSATE SODIUM 100 MG CAPSULE PO SCH (21:58)
--- NOTE | 2019-01-06 22:09 | NUR ---
ICU/ARTIST MANAGER PT'S BLOOD SUGAR IS 178, THIS WAS COVERED WITH AGGRESSIVE SLIDING SCALE FOR HS. WILL CONTINUE TO MONITOR THIS PT'S SUGAR ORDERED BY MD. ILEOSTOMY CHANGED AT THIS TIME.
--- NOTE | 2019-01-06 22:30 | NUR ---
ICU/ELECTRICAL MANUFACTURING ENGINEER PT COMPLAINED ABOUT PAIN TO BACK AND GENERAL AREAS OF THE BODY, PT REQUESTED NORCO 10/325 MG 1 TAB FOR PAIN RATED 8/10. WILL CONTINUE TO MONITOR THIS PT'S PAIN. NO ACUTE DISTRESS SEEN AT THIS TIME. CALL LIGHT WITHIN REACH.
[2019-01-07] VITALS (90 sets, daily range): BP systolic 66–147; BP diastolic 19–100
--- NOTE | 2019-01-07 01:05 | NUR ---
ICU/NURSE PRACTITIONER PT REFUSED TO HAVE FINGER PULSE OX ON, SPOT CHECK DONE ROUTINELY EVERY HOUR. SATURATION ON ROOM AIR IS 98-99%. WILL CONTINUE TO MONITOR THIS PT.
--- NOTE | 2019-01-07 02:45 | NUR ---
ICU/CAMERA SYSTEMS ENGINEER PT REFUSED TO HAVE ANY AM CARE, JUST WANTS COLOSTOMY CHANGED. CALL LIGHT WITHIN REACH.
[2019-01-07] MEDS: HYDROCODONE/APAP 10/325MG 1 EA TABLET PO PRN (04:28)
--- NOTE | 2019-01-07 04:30 | NUR ---
ICU/AVIONICS INSTALLER PT COMPLAINED ABOUT PAIN TO BACK AND GENERAL AREAS OF THE BODY, PT REQUESTED NORCO 10/325 MG 1 TAB FOR PAIN RATED 8/10. WILL CONTINUE TO MONITOR THIS PT'S PAIN. NO ACUTE DISTRESS SEEN AT THIS TIME. CALL LIGHT WITHIN REACH.
[2019-01-07 04:37] LABS: BASOPHILS # (AUTO) 0.1 /CMM (0.0-0.2); BASOPHILS % (AUTO) 0.8 % (0.0-2.0); HEMATOCRIT 28 % (39-51); HEMOGLOBIN 8.8 g/dL (13.5-17.5); LYMPHOCYTES % (AUTO) 13.8 % (20.0-44.0); MEAN CORPUSCULAR HGB CONC 31 g/dl (31.0-36.0); MEAN CORPUSCULAR VOLUME 88 fL (80-96); MONOCYTES % (AUTO) 6.8 % (2.0-12.0); NEUTROPHILS # (AUTO) 11.5 /CMM (1.8-8.9); NEUTROPHILS % (AUTO) 77.6 % (43.0-81.0); PLATELET COUNT (AUTO) 227 /CMM (150-450); RED BLOOD CELL COUNT(AUTO) 3.19 MIL/uL (4.5-6.0); WHITE BLOOD COUNT (AUTO) 14.8 K/uL (4.3-11.0)
[2019-01-07 04:48] LABS: CALCIUM, SERUM 9.6 mg/dL (8.5-10.1); MAGNESIUM 1.9 mg/dL (1.8-2.4); PHOSPHORUS 4.6 mg/dL (2.5-4.9); POTASSIUM 5.2 mmol/L (3.5-5.1)
[2019-01-07 04:52] LABS: CREATININE 8.3 mg/dL (0.6-1.3)
--- NOTE | 2019-01-07 07:00 | NUR ---
RN NOTES RECEIVED PATIENT ON BED , A/O X 4 AND ABLE TO MAKE HIS NEEDS KNOWN. ON ROOM AIR AND TOLERATING WELL.NO SOB NOTED, PATIENT IS ON TELEMETRY WITH SINUS RHYTHM WITH BBB. ILEOSTOMY IS CLEAN DRY INTACT AND PATENT WIT GREENISH LIQUID STOOL IN BAG. LEFT CHEST WALL HEMODIALYSIS CATHETER SITE , CLEAN ,DRY AND INTACT. PT ON LEVOPHED AT 2MCG/MIN AT THIS TIME , CONTINUE TO MONITOR VSS , BED IN LOW LOCK POSITION WITH RAILS UP X 3. CALL LIGHT WITHIN EASY REACH ,CONTINUE TO MONITOR.
[2019-01-07] MEDS: SEVELAMER CARBONATE 800 MG TABLET PO SCH ×3 (08:22→17:15)
[2019-01-07] MEDS: VIT B CMPLX 3/FA/VIT C/BIOTIN 1 TAB TABLET PO SCH (08:22)
[2019-01-07] MEDS: PREGABALIN 100 MG CAPSULE PO SCH ×2 (08:23→17:15)
[2019-01-07] MEDS: DOXYCYCLINE HYCLATE (100 MG) 100 MG TABLET PO SCH ×2 (08:23→21:40)
[2019-01-07] MEDS: MIDODRINE HCL (5MG) 5 MG TABLET PO SCH ×3 (08:23→17:17)
[2019-01-07] MEDS: DULOXETINE HCL 30 MG CAPSULE.DR PO SCH ×2 (08:24→21:40)
[2019-01-07] MEDS: LACTOBACILLUS RHAMNOSUS GG 1 EACH CAP.SPRINK PO SCH ×2 (08:24→17:15)
[2019-01-07] MEDS: FERROUS SULFATE (325 MG) 325 MG/TAB TABLET PO SCH ×2 (08:24→17:16)
[2019-01-07] MEDS: GABAPENTIN 100 MG CAPSULE PO SCH ×3 (08:24→17:16)
[2019-01-07] MEDS: PANTOPRAZOLE 40 MG TABLET.DR PO SCH (08:24)
[2019-01-07] MEDS: FOLIC ACID 1 MG TABLET PO SCH (08:24)
[2019-01-07] MEDS: HYDROGEL DRESSING 90 GM TUBE TP SCH (08:25)
[2019-01-07] MEDS: CLOTRIMAZOLE 1% 15 GM TUBE TP SCH ×2 (08:26→17:18)
[2019-01-07] MEDS: NEOMY SULF/BACITRAC ZN/POLY 15 GM TUBE TP SCH (08:26)
[2019-01-07] MEDS: MUPIROCIN OINT 2% 22 GM TUBE SCH ×2 (08:27→21:40)
[2019-01-07] MEDS: INSULIN REGULAR, HUMAN 100 UNIT/ML 3 ML VIAL SQ PRN ×3 (08:29→17:18)
[2019-01-07] MEDS: BLOOD SUGAR DIAGNOSTIC 1 EACH STRIP IN SCH ×4 (08:30→22:00)
--- NOTE | 2019-01-07 12:00 | NUR ---
RN NOTES LEAKING NOTED ON THE SIDE OF THE ILEOSTOMY, ILEOSTOMY BAG CHANGED .
--- NOTE | 2019-01-07 18:00 | NUR ---
RN NOTES LEVO GTT OFF , BP STABLE , PT STABLE, R UPPER ARM PICC LINE SITE CLEAN, DRY AND INTACT, NO SIGNIFICANT CHANGES NOTED ON THIS SHIFT , REFUSED TO EAT DINNER AT THIS TIME, WILL ENDOSE TO PERL PROGRAMMER NURSE FOR CONTINUITY OF CARE.
[2019-01-07] MEDS: NOREPINEPHRINE 16 MG in IV D5W 500 ML IV PRN (20:08)
[2019-01-07] MEDS: DOCUSATE SODIUM 100 MG CAPSULE PO SCH (22:00)
[2019-01-08] VITALS (92 sets, daily range): BP systolic 45–144; BP diastolic 19–86
[2019-01-08] MEDS: ACETAMINOPHEN 325 MG TABLET PO PRN (04:05)
[2019-01-08 04:59] LABS: ALBUMIN 2.2 g/dL (3.4-5.0); BILIRUBIN,TOTAL 0.4 mg/dL (0.2-1.0); CREATININE 6.8 mg/dL (0.6-1.3); MAGNESIUM 1.9 mg/dL (1.8-2.4); PHOSPHORUS 4.4 mg/dL (2.5-4.9); POTASSIUM 4.8 mmol/L (3.5-5.1); TOTAL PROTEIN, SERUM 7.1 g/dL (6.4-8.2)
[2019-01-08 05:05] LABS: CALCIUM, SERUM 9.7 mg/dL (8.5-10.1)
--- NOTE | 2019-01-08 05:15 | NUR ---
NOTICED PT PASSED OUT IN HIS BED, CALLED HIS NAME AND AWOKE, KNEW WHERE HE WAS, HR 144, SKIN W/D CODE RAPID CALLED THEN CANCELLED. CARAMEL CUTTER HAND DR HODGE CALLED ORDERD RECEIVED.
[2019-01-08] MEDS ORDERED: PHENYLEPHRINE 20 MG in IV D5W 250 ML IV PRN (06:00)
[2019-01-08] MEDS ORDERED: IV NS 0.9% 1,000 ML IV PRN (06:30)
[2019-01-08] MEDS ORDERED: AMIODARONE 150 MG in IV D5W 100 ML IV ONE (07:00)
[2019-01-08] MEDS ORDERED: AMIODARONE 900 MG in IV D5W 500 ML IV PRN (07:00)
[2019-01-08] MEDS: PHENYLEPHRINE 20 MG in IV D5W 250 ML IV PRN (07:14)
[2019-01-08 07:26] LABS: MAGNESIUM 2.1 mg/dL (1.8-2.4); PHOSPHORUS 4.6 mg/dL (2.5-4.9)
[2019-01-08] MEDS: PANTOPRAZOLE 40 MG TABLET.DR PO SCH (07:30)
--- NOTE | 2019-01-08 07:30 | NUR ---
RN NOTES RECEIVED PT ON BED, LETHARGIC , FOLLOWS SIMPLE COMMAND, PT CONSTANCY MOVING AROUND IN BED UNABLE TO GET ACCURATE BP READING. UNABLE TO FLUSH PICC LINE. GEOVANNI VEE NOTIFIED. ALTEPLASE ORDERED . CONTINUE TO MONITOR.
[2019-01-08] MEDS: BLOOD SUGAR DIAGNOSTIC 1 EACH STRIP IN SCH ×4 (07:39→22:00)
[2019-01-08] MEDS: INSULIN REGULAR, HUMAN 100 UNIT/ML 3 ML VIAL SQ PRN ×3 (07:42→17:15)
[2019-01-08] MEDS: SEVELAMER CARBONATE 800 MG TABLET PO SCH ×3 (08:00→17:04)
[2019-01-08] MEDS: HYDROCORTISONE SOD SUCCINATE 100 MG/2 ML VIAL IV SCH ×5 (08:05→20:26)
[2019-01-08] MEDS ORDERED: ALTEPLASE CATHFLO 2 MG/VIAL XX STA (08:42)
[2019-01-08] MEDS: MIDODRINE HCL (5MG) 5 MG TABLET PO SCH ×3 (09:00→17:01)
[2019-01-08] MEDS: LACTOBACILLUS RHAMNOSUS GG 1 EACH CAP.SPRINK PO SCH ×2 (09:00→17:00)
[2019-01-08] MEDS: DOXYCYCLINE HYCLATE (100 MG) 100 MG TABLET PO SCH ×2 (09:00→20:25)
[2019-01-08] MEDS: DULOXETINE HCL 30 MG CAPSULE.DR PO SCH ×2 (09:00→20:25)
[2019-01-08] MEDS: VIT B CMPLX 3/FA/VIT C/BIOTIN 1 TAB TABLET PO SCH (09:00)
[2019-01-08] MEDS: PREGABALIN 100 MG CAPSULE PO SCH ×2 (09:00→17:02)
[2019-01-08] MEDS: GABAPENTIN 100 MG CAPSULE PO SCH ×3 (09:00→17:00)
[2019-01-08] MEDS: FERROUS SULFATE (325 MG) 325 MG/TAB TABLET PO SCH ×2 (09:00→17:02)
[2019-01-08] MEDS: FOLIC ACID 1 MG TABLET PO SCH (09:00)
--- NOTE | 2019-01-08 09:00 | NUR ---
RN NOTES PT REFUSED MORNING MEDS , STATED LEAVE ME ALONE.
--- NOTE | 2019-01-08 09:00 | NUR ---
RN NOTES PICC LINE NOT WORKING YET, UNABLE TO INFUSE IV MEDS , NANDA CLAIMS CONSULTANT AND DR. GARZA, NOITFED. PT IS RESPOND TO VERBAL STIMULI. LETHARGIC , FOLLOWS SIMPLE COMMAND. CONTINUE TO MONITOR .
[2019-01-08] MEDS: MUPIROCIN OINT 2% 22 GM TUBE SCH ×2 (09:20→20:33)
[2019-01-08] MEDS: NEOMY SULF/BACITRAC ZN/POLY 15 GM TUBE TP SCH (09:21)
[2019-01-08] MEDS: CLOTRIMAZOLE 1% 15 GM TUBE TP SCH ×2 (09:21→17:03)
[2019-01-08] MEDS: HYDROGEL DRESSING 90 GM TUBE TP SCH (09:22)
[2019-01-08 09:27] LABS: APPEARANCE,URINE SL CLOUDY (CLEAR); BILIRUBIN,URINE NEGATIVE (NEGATIVE); BLOOD, URINE SMALL Ery/uL (NEGATIVE); COLOR,URINE YELLOW (YELLOW); KETONES,URINE NEGATIVE (NEGATIVE); LEUKOCYTE ESTERASE ,URINE SMALL (NEGATIVE); NITRITE, URINE NEGATIVE (NEGATIVE); PROTEIN,URINE 30 mg/dl (NEGATIVE); UGLUCOSE 100 MG/DL mg/dL (NEGATIVE); UROBILINOGEN,URINE 0.2 EU/dL (0.2)
--- NOTE | 2019-01-08 09:42 | NUR ---
RN NOTES DR GARZA AT THE BEDSIDE, SEEING THE PT .
[2019-01-08 09:47] LABS: BACTERIA,URINE Many /HPF (None Seen); SQUAMOUS EPITHELIAL CELL,UR Few /HPF (None Seen)
--- NOTE | 2019-01-08 13:12 | NUR ---
RN NOTES MANUALLY BP ON R LOWER ARM 88/47. PT RESPONDING TO VERBAL STIMULI, FOLLOWS SIMPLE COMMANDS , CONTINUE TO MONITOR
--- NOTE | 2019-01-08 13:30 | NUR ---
RN NOTES TELEPHONE CONSENT OBTAINED FOR A NEW PICC LINE INSERTION FROM PT DAUGHTER.
--- NOTE | 2019-01-08 13:50 | NUR ---
RN NOTES SPOKEN TO PICC LINE NURSE REGARDING NEW PICC LINE INSERTION . SHE WILL BE HERE SOON TO INSERT THE NEW PICC LINE PER TOOL CHECKER ORDER .
--- NOTE | 2019-01-08 16:10 | NUR ---
RN NOTES NEW R UPPER ARM PICC LINE INSERTED BY PICC LINE NURSE, OK TO USE THE LINE PER ORDER AND X RAY RESULTS. AMIO AND PANFILO GTT RESTARTED PER DR GARZA ORDER . PT IS MORE ALERT AND TALKATIVE, CONTINUE TO MONITOR.
[2019-01-08] MEDS ORDERED: AMIODARONE 900 MG in IV D5W 482 ML IV PRN (16:30)
[2019-01-08] MEDS: MEROPENEM 500 MG in IV NS 0.9% 50 ML IV SCH (18:16)
[2019-01-08] MEDS: HYDROCODONE/APAP 5/325MG 1 EACH TABLET PO PRN (20:25)
[2019-01-08] MEDS: DOCUSATE SODIUM 100 MG CAPSULE PO SCH (22:00)
[2019-01-09] VITALS (65 sets, daily range): BP systolic 56–140; BP diastolic 17–99
[2019-01-09] MEDS: HYDROCODONE/APAP 5/325MG 1 EACH TABLET PO PRN ×4 (00:25→18:49)
[2019-01-09] MEDS: PHENYLEPHRINE 20 MG in IV D5W 250 ML IV PRN ×3 (00:38→20:34)
[2019-01-09 04:50] LABS: BASOPHILS # (AUTO) 0.1 /CMM (0.0-0.2); BASOPHILS % (AUTO) 0.2 % (0.0-2.0); HEMATOCRIT 29 % (39-51); HEMOGLOBIN 8.9 g/dL (13.5-17.5); LYMPHOCYTES % (AUTO) 3.5 % (20.0-44.0); MEAN CORPUSCULAR HGB CONC 31 g/dl (31.0-36.0); MEAN CORPUSCULAR VOLUME 91 fL (80-96); MONOCYTES # (AUTO) 0.6 /CMM (0.1-1.30); MONOCYTES % (AUTO) 2.1 % (2.0-12.0); NEUTROPHILS # (AUTO) 27.3 /CMM (1.8-8.9); NEUTROPHILS % (AUTO) 94.2 % (43.0-81.0); PLATELET COUNT (AUTO) 257 /CMM (150-450); RED BLOOD CELL COUNT(AUTO) 3.21 MIL/uL (4.5-6.0)
[2019-01-09 05:11] LABS: ALBUMIN 1.9 g/dL (3.4-5.0); BILIRUBIN,TOTAL 0.3 mg/dL (0.2-1.0); CALCIUM, SERUM 8.9 mg/dL (8.5-10.1); MAGNESIUM 1.8 mg/dL (1.8-2.4); PHOSPHORUS 4.4 mg/dL (2.5-4.9); TOTAL PROTEIN, SERUM 6.1 g/dL (6.4-8.2)
[2019-01-09 05:27] LABS: CREATININE 7.7 mg/dL (0.6-1.3)
--- NOTE | 2019-01-09 05:32 | NUR ---
LAB CALLED ABOUT BS 483, BUT PT IS ON STEROIDS,DR WASHBURN
[2019-01-09] MEDS: INSULIN REGULAR, HUMAN 100 UNIT/ML 3 ML VIAL SQ PRN ×4 (05:51→17:23)
[2019-01-09 06:02] LABS: BAND % (MANUAL) 1 % (0.0-5.0); LYMPHOCYTES % (MANUAL) 3 % (16-48); MONOCYTES % (MANUAL) 2 % (0-11.0); NEUTROPHILS % (MANUAL) 94 (42-76)
[2019-01-09] MEDS: PANTOPRAZOLE 40 MG TABLET.DR PO SCH (06:25)
--- NOTE | 2019-01-09 07:15 | NUR ---
BRUSH HOLDER ASSEMBLER NOTES RECEIVED REPORT FROM PM NURSE. PATIENT IN BED. A/O X 4 . ABLE TO MAKE HIS NEEDS KNOWN. ON ROOM AIR AND TOLERATING WELL.NO SOB NO DISTRESS NOTED . PATIENT IS ON TELEMETRY WITH SINUS RHYTHM WITH BBB INVERTED T WAVE. ILEOSTOMY IS CLEAN DRY INTACT AND PATENT WIT GREENISH LIQUID STOOL IN BAG. LEFT CHEST WALL HEMODIALYSIS CATHETER .CLEAN ,DRY AND INTACT. PT ON PANFILO @35MCG AT THIS TIME .ON AMIODARONE DRIP 0.5MG TO COMPLETE BY 1600. BED IN LOW LOCK POSITION WITH RAILS UP X 3. CALL LIGHT WITHIN EASY REACH.BED ALARM ON .WILL CONTINUE TO MONITOR.
[2019-01-09] MEDS: BLOOD SUGAR DIAGNOSTIC 1 EACH STRIP IN SCH ×4 (07:38→22:48)
[2019-01-09] MEDS: MEROPENEM 500 MG in IV NS 0.9% 50 ML IV SCH ×2 (08:09→22:03)
[2019-01-09] MEDS: SEVELAMER CARBONATE 800 MG TABLET PO SCH ×3 (08:10→17:21)
[2019-01-09] MEDS: LACTOBACILLUS RHAMNOSUS GG 1 EACH CAP.SPRINK PO SCH ×2 (08:10→17:21)
[2019-01-09] MEDS: HYDROCORTISONE SOD SUCCINATE 100 MG/2 ML VIAL IV SCH ×3 (08:10→17:22)
[2019-01-09] MEDS: DULOXETINE HCL 30 MG CAPSULE.DR PO SCH ×2 (08:11→22:03)
[2019-01-09] MEDS: MIDODRINE HCL (5MG) 5 MG TABLET PO SCH ×3 (08:11→17:21)
[2019-01-09] MEDS: FERROUS SULFATE (325 MG) 325 MG/TAB TABLET PO SCH ×2 (08:11→17:21)
[2019-01-09] MEDS: VIT B CMPLX 3/FA/VIT C/BIOTIN 1 TAB TABLET PO SCH (08:12)
[2019-01-09] MEDS: PREGABALIN 100 MG CAPSULE PO SCH ×2 (08:12→17:21)
[2019-01-09] MEDS: FOLIC ACID 1 MG TABLET PO SCH (08:12)
[2019-01-09] MEDS: GABAPENTIN 100 MG CAPSULE PO SCH ×3 (08:12→17:20)
[2019-01-09] MEDS: DOXYCYCLINE HYCLATE (100 MG) 100 MG TABLET PO SCH ×2 (08:14→22:03)
[2019-01-09] MEDS: NEOMY SULF/BACITRAC ZN/POLY 15 GM TUBE TP SCH (08:19)
[2019-01-09] MEDS: HYDROGEL DRESSING 90 GM TUBE TP SCH (08:19)
[2019-01-09] MEDS: MUPIROCIN OINT 2% 22 GM TUBE SCH ×2 (08:19→22:03)
[2019-01-09] MEDS: CLOTRIMAZOLE 1% 15 GM TUBE TP SCH ×2 (08:19→17:22)
[2019-01-09] MEDS: AMIODARONE HCL 200 MG TABLET PO SCH ×2 (12:30→17:21)
[2019-01-09] MEDS: HYDROCODONE/APAP 10/325MG 1 EA TABLET PO PRN (12:31)
--- NOTE | 2019-01-09 13:30 | NUR ---
CABINET WORKER NOTE DIALYSIS DONE.500ML OUT.VITAL SIGNS STABLE.
--- NOTE | 2019-01-09 18:03 | NUR ---
STRIPE MARKER NOTE SEEN Y CORE JAVA SOFTWARE ENGINEER ELIZABETH FROM ID UPDATED ABOUT PATIENT CONDITION WITH LABS OF ELEVATED WBC LEVEL.
--- NOTE | 2019-01-09 20:14 | NUR ---
GLOBAL EXPANSION SALES DIRECTOR CLOSING ENDORSED TO PM NURSE FOR SADIA.
[2019-01-09] MEDS: DOCUSATE SODIUM 100 MG CAPSULE PO SCH (22:00)
[2019-01-09] MEDS: *INSULIN REGULAR(HUMULIN R)HUM 100 UNIT/ML VIAL SQ PRN (22:48)
--- NOTE | 2019-01-09 22:48 | NUR ---
RN NOTE BLOOD SUGAR OF 425 NOTED, ADMINISTER INSULIN SUB Q PER PROTOCOL, NOTIFIED DR AYESHA ZHANG, NO NEW ORDERS GIVEN, WILL CONTINUE TO MONITOR PATIENT
[2019-01-10] VITALS (85 sets, daily range): BP systolic 66–150; BP diastolic 29–81
[2019-01-10] MEDS: HYDROCODONE/APAP 5/325MG 1 EACH TABLET PO PRN ×3 (00:41→13:46)
[2019-01-10 04:40] LABS: BASOPHILS # (AUTO) 0.2 /CMM (0.0-0.2); BASOPHILS % (AUTO) 0.7 % (0.0-2.0); EOSINOPHILS % (AUTO) 0.1 % (0.0-6.0); HEMATOCRIT 30 % (39-51); HEMOGLOBIN 9.1 g/dL (13.5-17.5); LYMPHOCYTES # (AUTO) 1.9 /CMM (0.8-4.8); LYMPHOCYTES % (AUTO) 7.5 % (20.0-44.0); MEAN CORPUSCULAR HGB CONC 31 g/dl (31.0-36.0); MEAN CORPUSCULAR VOLUME 89 fL (80-96); MONOCYTES # (AUTO) 1.1 /CMM (0.1-1.30); MONOCYTES % (AUTO) 4.2 % (2.0-12.0); NEUTROPHILS # (AUTO) 22.5 /CMM (1.8-8.9); NEUTROPHILS % (AUTO) 87.5 % (43.0-81.0); PLATELET COUNT (AUTO) 277 /CMM (150-450); RED BLOOD CELL COUNT(AUTO) 3.34 MIL/uL (4.5-6.0); WHITE BLOOD COUNT (AUTO) 25.7 K/uL (4.3-11.0)
[2019-01-10 05:01] LABS: BILIRUBIN,TOTAL 0.2 mg/dL (0.2-1.0); CALCIUM, SERUM 9.3 mg/dL (8.5-10.1); CREATININE 7.1 mg/dL (0.6-1.3); MAGNESIUM 1.8 mg/dL (1.8-2.4); PHOSPHORUS 4.9 mg/dL (2.5-4.9); POTASSIUM 4.5 mmol/L (3.5-5.1); TOTAL PROTEIN, SERUM 6.2 g/dL (6.4-8.2)
[2019-01-10] MEDS: PHENYLEPHRINE 20 MG in IV D5W 250 ML IV PRN ×2 (05:24→16:09)
--- NOTE | 2019-01-10 08:30 | NUR ---
SLASHER TENDER INITIAL NOTE RECEIVED PATIENT AWAKE, ALERT AND ORIENTED, PLEASANT. SITTING UP IN BED WITH LEGS DANGLING EATING BREAKFAST WITH GOOD APETITE. DENIES SOB. C/O 8/10 LOWER BACK PAIN. SKIN COOL AND DRY TO TOUCH. ON TELE MONITOR SR WITH BBB, INVERTED TWAVES. SIRIA PICC LINE PATENT AND INTACT, WITH PANFILO AT 35MCG/MIN. WITH ILEOSTOMY PATENT AND INTACT, NEEDS FREQUENT EMPTYING. SIDE RAILS UP AND LOCKED. BED KEPT AT LOWEST POSITION. CALL LIGHT KEPT WITHIN EASY REACH. WILL CONTINUE TO MONITOR.
[2019-01-10] MEDS: BLOOD SUGAR DIAGNOSTIC 1 EACH STRIP IN SCH ×4 (08:40→22:10)
[2019-01-10] MEDS: HYDROCORTISONE SOD SUCCINATE 100 MG/2 ML VIAL IV SCH ×3 (08:41→17:41)
[2019-01-10] MEDS: INSULIN REGULAR, HUMAN 100 UNIT/ML 3 ML VIAL SQ PRN ×3 (08:41→17:43)
[2019-01-10] MEDS: MEROPENEM 500 MG in IV NS 0.9% 50 ML IV SCH (08:42)
[2019-01-10] MEDS: VIT B CMPLX 3/FA/VIT C/BIOTIN 1 TAB TABLET PO SCH (08:43)
[2019-01-10] MEDS: DOXYCYCLINE HYCLATE (100 MG) 100 MG TABLET PO SCH (08:43)
[2019-01-10] MEDS: GABAPENTIN 100 MG CAPSULE PO SCH ×3 (08:43→17:42)
[2019-01-10] MEDS: PANTOPRAZOLE 40 MG TABLET.DR PO SCH (08:43)
[2019-01-10] MEDS: LACTOBACILLUS RHAMNOSUS GG 1 EACH CAP.SPRINK PO SCH ×2 (08:43→17:42)
[2019-01-10] MEDS: SEVELAMER CARBONATE 800 MG TABLET PO SCH ×3 (08:43→17:42)
[2019-01-10] MEDS: MIDODRINE HCL (5MG) 5 MG TABLET PO SCH ×3 (08:45→17:42)
[2019-01-10] MEDS: PREGABALIN 100 MG CAPSULE PO SCH ×2 (08:45→17:42)
[2019-01-10] MEDS: FOLIC ACID 1 MG TABLET PO SCH (08:46)
[2019-01-10] MEDS: AMIODARONE HCL 200 MG TABLET PO SCH ×3 (08:48→17:41)
[2019-01-10] MEDS: DULOXETINE HCL 30 MG CAPSULE.DR PO SCH ×2 (08:49→21:50)
[2019-01-10] MEDS: FERROUS SULFATE (325 MG) 325 MG/TAB TABLET PO SCH ×2 (08:49→17:42)
[2019-01-10] MEDS: CLOTRIMAZOLE 1% 15 GM TUBE TP SCH ×2 (09:05→17:46)
[2019-01-10] MEDS: HYDROGEL DRESSING 90 GM TUBE TP SCH (09:05)
[2019-01-10] MEDS: MUPIROCIN OINT 2% 22 GM TUBE SCH ×2 (09:05→21:51)
[2019-01-10] MEDS: NEOMY SULF/BACITRAC ZN/POLY 15 GM TUBE TP SCH (09:05)
--- NOTE | 2019-01-10 12:30 | NUR ---
SALES TEAM RECRUITER NOTE PATIENT REQUESTED TO HAVE BLOOD PRESSURE CUFF OF WHILE EATING LUNCH, DESPITE EXPLANATION OF RISKS AND BENEFITS. AWAKE, AND ALERT. WILL MONITOR CLOSELY.
--- NOTE | 2019-01-10 19:30 | NUR ---
RN NOTES PATIENT ASLEEP ON BED. BREATHING EVEN AND UNLABORED. AOX4 HIS BASELINE. ON ROOM AIR. SR ON TELE MONITOR. CONTINUE ON ISOLATION PRECAUTION FOR MRSA NARES. IV SITE ON SIRIA PICC LINE INTACT AND PATENT WITH NEOSYNEPHRINE @ 15 MCG/MIN. WILL TITRATED PROTOCOL ORDERED. KEPT PT CLEAN AND DRY. BED LOCKED AND SECURED CALL LIGHT PLACED WITHIN EASY REACH.
--- NOTE | 2019-01-10 20:15 | NUR ---
FULLING MACHINE OPERATOR CLOSING NOTE ALL NEEDS ANTICIPATED AND MET. PAIN MONITORED AND MANAGED NEEDED. NO C/O SOB, ON RA. KEPT CLEAN AND DRY. ILEOSTOMY FREQUENTLY CHANGED, IN PLACE. SIRIA PICC LINE PATENT AND INTACT, PANFILO AT 15MCG/MIN. SIDE RAILS UP AND LOCKED. ALL DUE MEDS GIVEN. BED KEPT AT LOWEST POSITION. CALL LIGHT KEPT WITHIN EASY REACH. CONTINUITY OF CARE ENDORSED TO PM NURSE.
[2019-01-10] MEDS: DOCUSATE SODIUM 100 MG CAPSULE PO SCH (21:50)
[2019-01-10] MEDS: *INSULIN REGULAR(HUMULIN R)HUM 100 UNIT/ML VIAL SQ PRN (22:13)
[2019-01-11] VITALS (28 sets, daily range): BP systolic 85–138; BP diastolic 41–74
[2019-01-11] MEDS: HYDROCODONE/APAP 5/325MG 1 EACH TABLET PO PRN ×3 (00:34→22:39)
[2019-01-11 04:31] LABS: BASOPHILS % (AUTO) 0.2 % (0.0-2.0); EOSINOPHILS % (AUTO) 0.1 % (0.0-6.0); HEMATOCRIT 28 % (39-51); HEMOGLOBIN 8.8 g/dL (13.5-17.5); LYMPHOCYTES # (AUTO) 1.3 /CMM (0.8-4.8); LYMPHOCYTES % (AUTO) 8.5 % (20.0-44.0); MEAN CORPUSCULAR HGB CONC 31 g/dl (31.0-36.0); MEAN CORPUSCULAR VOLUME 89 fL (80-96); MONOCYTES # (AUTO) 0.5 /CMM (0.1-1.30); MONOCYTES % (AUTO) 3.2 % (2.0-12.0); NEUTROPHILS # (AUTO) 13.4 /CMM (1.8-8.9); PLATELET COUNT (AUTO) 194 /CMM (150-450); RED BLOOD CELL COUNT(AUTO) 3.16 MIL/uL (4.5-6.0); WHITE BLOOD COUNT (AUTO) 15.2 K/uL (4.3-11.0)
[2019-01-11 04:47] LABS: CALCIUM, SERUM 8.7 mg/dL (8.5-10.1); PHOSPHORUS 5.7 mg/dL (2.5-4.9); POTASSIUM 4.5 mmol/L (3.5-5.1)
[2019-01-11 04:51] LABS: CREATININE 8.6 mg/dL (0.6-1.3)
--- NOTE | 2019-01-11 06:38 | NUR ---
RN NOTES PATIENT REMAINED STABLE . OFF FROM PRESSORS. BP REMAINED WNL. SB/SR ON TELE MONITOR LOWEST HR 54 TOLERATED WELL ASYMPTOMATIC. AFEBRILE. NO SIGNIFICANT SADIA TROUGHOUT THE SHIFT. ALL NEEDS ATTENDED. ILEOSTOMY CHANGE AND CHECKED Q2H STILL WITH LIQUID STOOL. KEPT PT CLEAN AND DRY. ALL DUE MEDS ADMINISTERED ORDERED. ALL WOUNDS RE ASSESS AND PHOT TAKEN. CALL LIGHT KEPT WITHIN EASY REACH. KEPT PT CLEAN AND DRY. WILL ENDORSED CONTINUITY OF CARE TO AM NURSE. 0640 AM - S/E BY DR. WOODY AT BEDSIDE. UPDATED REGADING PATIENT STATUS THROUGHOUT THE NIGHT.
--- NOTE | 2019-01-11 07:05 | NUR ---
RN NOTES RECEIVED PT ON BED, A/OX4, ON RA, NO SOB NOTED, ON TELE, SR , CONTINUE ON ISOLATION PRECAUTION FOR MRSA NARES. ILEOSTOMY BAG INTACT , IV SITE ON SIRIA PICC LINE INTACT AND PATENT, KEPT PT CLEAN AND DRY. BED LOCKED AND SECURED AND IN LOWEST POSITION, CALL LIGHT WITHIN EASY REACH, CONTINUE TO MONITOR .
[2019-01-11] MEDS: BLOOD SUGAR DIAGNOSTIC 1 EACH STRIP IN SCH ×4 (08:18→21:26)
[2019-01-11] MEDS: INSULIN REGULAR, HUMAN 100 UNIT/ML 3 ML VIAL SQ PRN ×3 (08:18→17:40)
[2019-01-11] MEDS: PANTOPRAZOLE 40 MG TABLET.DR PO SCH (08:19)
[2019-01-11] MEDS: DULOXETINE HCL 30 MG CAPSULE.DR PO SCH ×2 (08:19→21:20)
[2019-01-11] MEDS: FERROUS SULFATE (325 MG) 325 MG/TAB TABLET PO SCH ×2 (08:19→16:44)
[2019-01-11] MEDS: SEVELAMER CARBONATE 800 MG TABLET PO SCH ×3 (08:19→17:41)
[2019-01-11] MEDS: LACTOBACILLUS RHAMNOSUS GG 1 EACH CAP.SPRINK PO SCH ×2 (08:19→16:44)
[2019-01-11] MEDS: PREGABALIN 100 MG CAPSULE PO SCH ×2 (08:20→16:44)
[2019-01-11] MEDS: HYDROCORTISONE SOD SUCCINATE 100 MG/2 ML VIAL IV SCH ×3 (08:20→16:44)
[2019-01-11] MEDS: GABAPENTIN 100 MG CAPSULE PO SCH ×3 (08:20→16:44)
[2019-01-11] MEDS: MIDODRINE HCL (5MG) 5 MG TABLET PO SCH ×3 (08:20→16:45)
[2019-01-11] MEDS: VIT B CMPLX 3/FA/VIT C/BIOTIN 1 TAB TABLET PO SCH (08:20)
[2019-01-11] MEDS: MUPIROCIN OINT 2% 22 GM TUBE SCH ×2 (08:22→21:21)
[2019-01-11] MEDS: HYDROGEL DRESSING 90 GM TUBE TP SCH (08:22)
[2019-01-11] MEDS: NEOMY SULF/BACITRAC ZN/POLY 15 GM TUBE TP SCH (08:22)
[2019-01-11] MEDS: CLOTRIMAZOLE 1% 15 GM TUBE TP SCH ×2 (08:23→16:48)
[2019-01-11] MEDS: FOLIC ACID 1 MG TABLET PO SCH (08:26)
--- NOTE | 2019-01-11 09:30 | NUR ---
RN NOTES DR IBARRA NOTIFED REGARDING VSS, OK TO GIVE AMIO PO ,
[2019-01-11] MEDS: AMIODARONE HCL 200 MG TABLET PO SCH ×3 (09:57→16:44)
--- NOTE | 2019-01-11 10:00 | NUR ---
RN NOTES CONSENT OBTAINED FROM THE PT FOR CTA W/3D IMAGE.
--- NOTE | 2019-01-11 10:45 | NUR ---
RN NOTES PT TO LEFT THE FLOOR FOR CTA , IN STABLE CONDITION .
[2019-01-11] MEDS ORDERED: IV NS 0.9% 500 ML IV PRN (11:00)
[2019-01-11] MEDS ORDERED: METOPROLOL TARTRATE INJ 5 MG/5 ML AMPUL IVP PRN (11:00)
[2019-01-11] MEDS ORDERED: NITROGLYCERIN 0.4 MG/TAB BOTTLE SL ONE (11:00)
[2019-01-11] MEDS ORDERED: IV NS 0.9% 250 ML IV ONE (11:02)
[2019-01-11] MEDS ORDERED: CT SWABBABLE VALVE TRANS SET 1 EA INFUS.SET MC ONE (11:02)
[2019-01-11] MEDS ORDERED: IOHEXOL-350 100 ML VIAL IV ONE (11:02)
[2019-01-11] MEDS ORDERED: METOPROLOL TARTRATE INJ 5 MG/5 ML AMPUL ONE (11:08)
--- NOTE | 2019-01-11 11:13 | NUR ---
at 1111 BP 80/48 hr HR 66 100% room air at 1113 BP 75/43 HR 68 at 100% room air Addendum: 01/11/19 at 1125 by YAMINI COLLADO RN Amended: Links added.
--- NOTE | 2019-01-11 11:40 | NUR ---
RN NOTES PT BACK TO ROOM FORM CTA, VSS STABLE, CONTINUE TO MONITOR
--- NOTE | 2019-01-11 15:00 | NUR ---
RN NOTES UNABLE TO FLUSH TWO PORTS OF THE R UPPER ARM PICC LINE , TRAVELING ELECTRICIAN NOITFED , ORDER RECEIVED FOR NEW PICC LINE PLACEMENT .
--- NOTE | 2019-01-11 18:00 | NUR ---
RN NOTES VSS STABLE, PT STABLE, NO DISTRESS NOTED, NEW R UPPER ARM MIDLINE INSERTED BY MIDLINE NURSE , SR UP X3, CALL LIGHT WITHIN EASY REACH, BED LOCKED AND IN LOWEST POSITION, WILL ENDORSE TO BULK TANK DRIVER NURSE FOR CONTINUITY OF CARE.
--- NOTE | 2019-01-11 20:00 | NUR ---
RN NOTES RECEIVED PATIENT AWAKE WATCHING TV ON BED. NO SOB ON ROOM AIR. AOX4. VERBALIZED FEELINGS. SR ON TELE MONITOR. IV SITE ON RIGHT ARM MIDLINE INTACT AND PATENT WITH GOOD BLOOD RETURN. OFF FROM PRESSORS. COMPLAINING OF BACK PAIN. MEDICINE WILL BE GIVEN ORDERED.ILEOSTOMY BAG IN PLACED DRAINED WITH SOFT YELLOWISH STOOL. HD CATH ON LCW. DIALYSIS STARTED AT THIS TIME. KEPT PT CLEAN AND DRY. WILL CLOSELY MONITOR.
[2019-01-11] MEDS: DOCUSATE SODIUM 100 MG CAPSULE PO SCH (21:21)
[2019-01-11] MEDS: *INSULIN REGULAR(HUMULIN R)HUM 100 UNIT/ML VIAL SQ PRN (22:38)
--- NOTE | 2019-01-11 23:50 | NUR ---
RN NOTES DIALYSIS DONE WITH NO OUTPUT PER DIALYSIS NURSE. VSS. NO SIGNS OF HYPOTENSION. PATIENT IS CALM AND COOPERATIVE. NO SIGNIFICANT SADIA. ENDORSED TO GARRY FOR CONTINUITY OF CARE TO AM NURSE.
[2019-01-12] VITALS (22 sets, daily range): BP systolic 58–157; BP diastolic 31–78
--- NOTE | 2019-01-12 | NUR ---
TRACK WATCHMAN NOTE PT IN BED AWAKE. NO SOB, NO DISTRESS OR DISCOMFORT NOTED. DENIES PAIN AT THIS TIME. PT WANT IS HURGRY AND ASKING FOR FOOD. SANDWICH PROVIDED. COLOSTOMY BAG INTACT AND PATENT, DRAINING SOFT STOOL. KEPT HIM DRY AND CLEAN. ALL NEEDS ATTENDED. VSS. CONTINUE TO MONITOR HIM.
--- NOTE | 2019-01-12 00:30 | NUR ---
BENEFITS SPECIALIST NOTE PT WAS REMOVING THE O2 SAT PROBE STATES "IT'S BOTHERING ME ON MY FINGER WHEN I AM EATING". O2 SAT CHECKED PT IS 100% ON ROOM AIR.
[2019-01-12 04:55] LABS: BASOPHILS # (AUTO) 0.1 /CMM (0.0-0.2); BASOPHILS % (AUTO) 0.5 % (0.0-2.0); EOSINOPHILS % (AUTO) 0.1 % (0.0-6.0); HEMATOCRIT 28 % (39-51); LYMPHOCYTES # (AUTO) 1.4 /CMM (0.8-4.8); LYMPHOCYTES % (AUTO) 11.6 % (20.0-44.0); MEAN CORPUSCULAR HGB CONC 32 g/dl (31.0-36.0); MEAN CORPUSCULAR VOLUME 88 fL (80-96); MONOCYTES # (AUTO) 0.6 /CMM (0.1-1.30); MONOCYTES % (AUTO) 4.7 % (2.0-12.0); NEUTROPHILS # (AUTO) 10.3 /CMM (1.8-8.9); NEUTROPHILS % (AUTO) 83.1 % (43.0-81.0); PLATELET COUNT (AUTO) 184 /CMM (150-450); RED BLOOD CELL COUNT(AUTO) 3.18 MIL/uL (4.5-6.0); WHITE BLOOD COUNT (AUTO) 12.3 K/uL (4.3-11.0)
[2019-01-12 05:17] LABS: CALCIUM, SERUM 8.6 mg/dL (8.5-10.1); CREATININE 6.1 mg/dL (0.6-1.3); MAGNESIUM 1.8 mg/dL (1.8-2.4); PHOSPHORUS 4.5 mg/dL (2.5-4.9)
[2019-01-12] MEDS: HYDROCODONE/APAP 5/325MG 1 EACH TABLET PO PRN ×2 (05:33→20:59)
--- NOTE | 2019-01-12 06:39 | NUR ---
HOME DAY CARE PROVIDER NOTE PT IN BED AWAKE. NO DISTRESS OR DISCOMFORT NOTED. VSS. PT WAS MEDICATED EARLIER WITH PAIN MEDS NORCO FOR LOWER BACK PAIN 08/31. ON TELE SR WITH BBB HR 97. SIDE RAILS UP X 2 AND CALL LIGHT WITHIN REACH. WILL ENDORSE TO DAY SHIFT NURSE FOR CONTINUE TO CARE.
--- NOTE | 2019-01-12 08:00 | NUR ---
ICU/RN AM SHIFT INITIAL NOTES RECEIVED PT AWAKE IN BED, A/O X 4, PT DENIES ANY SYMPTOMS. ON ROOM AIR, SATURATING WELL, RESPIRATIONS EVEN & UNLABORED, LUNG SOUNDS CLEAR. ON TELE WITH SINUS RHYTHM, HR 75. IV SITE ON TKO, PATENT WITH NO S/S OF INFECTION. PT IS COMFORTABLE, SCHEDULED AM MEDS TO BE GIVEN. CL WITHIN REACHED, SAFETY MAINTAINED AND ISOLATION OBSERVED.
[2019-01-12] MEDS: BLOOD SUGAR DIAGNOSTIC 1 EACH STRIP IN SCH ×4 (08:05→21:22)
[2019-01-12] MEDS: PANTOPRAZOLE 40 MG TABLET.DR PO SCH (08:38)
[2019-01-12] MEDS: SEVELAMER CARBONATE 800 MG TABLET PO SCH ×3 (08:38→17:36)
[2019-01-12] MEDS: LACTOBACILLUS RHAMNOSUS GG 1 EACH CAP.SPRINK PO SCH ×2 (08:38→16:48)
[2019-01-12] MEDS: HYDROCORTISONE SOD SUCCINATE 100 MG/2 ML VIAL IV SCH ×3 (08:38→16:48)
[2019-01-12] MEDS: VIT B CMPLX 3/FA/VIT C/BIOTIN 1 TAB TABLET PO SCH (08:38)
[2019-01-12] MEDS: MIDODRINE HCL (5MG) 5 MG TABLET PO SCH ×3 (08:39→16:49)
[2019-01-12] MEDS: GABAPENTIN 100 MG CAPSULE PO SCH ×3 (08:39→16:49)
[2019-01-12] MEDS: DULOXETINE HCL 30 MG CAPSULE.DR PO SCH ×2 (08:39→20:59)
[2019-01-12] MEDS: PREGABALIN 100 MG CAPSULE PO SCH ×2 (08:39→16:48)
[2019-01-12] MEDS: FOLIC ACID 1 MG TABLET PO SCH (08:39)
[2019-01-12] MEDS: AMIODARONE HCL 200 MG TABLET PO SCH ×3 (08:39→16:49)
[2019-01-12] MEDS: CLOTRIMAZOLE 1% 15 GM TUBE TP SCH ×2 (08:40→16:50)
[2019-01-12] MEDS: NEOMY SULF/BACITRAC ZN/POLY 15 GM TUBE TP SCH (08:40)
[2019-01-12] MEDS: HYDROGEL DRESSING 90 GM TUBE TP SCH (08:40)
[2019-01-12] MEDS: FERROUS SULFATE (325 MG) 325 MG/TAB TABLET PO SCH ×2 (08:57→16:48)
[2019-01-12] MEDS: MUPIROCIN OINT 2% 22 GM TUBE SCH ×2 (08:57→21:00)
--- NOTE | 2019-01-12 12:00 | NUR ---
ICU/RN NOON ROUNDS NO CHANGE OF CONDITION. MONITORING CONTINUED.
[2019-01-12] MEDS: INSULIN REGULAR, HUMAN 100 UNIT/ML 3 ML VIAL SQ PRN ×3 (12:23→21:24)
[2019-01-12] MEDS: HYDROCODONE/APAP 10/325MG 1 EA TABLET PO PRN (13:37)
[2019-01-12] MEDS ORDERED: Hydrocortisone Sod Succinate IV (16:13)
[2019-01-12] MEDS ORDERED: AMIO200T7 PO (16:13)
[2019-01-12] MEDS ORDERED: Midodrine Hcl (5MG) PO (16:13)
--- NOTE | 2019-01-12 19:30 | NUR ---
ICU/RN AM SHIFT END NOTES NO ACUTE CHANGE OF CONDITION NOTED DURING THE SHIFT. ALL NEEDS MET. PT ENDORSED TO PM NURSE TO CONTINUE CARE. CL WITHIN REACHED, SAFETY MAINTAINED AND ISOLATION OBSERVED. PT PENDING TRANSFER TO [facility]. ADMITTING MD IS DR. REICH AND CONSULTING MD IS DR. CHUA. NO TIME OR ENOCH GIVEN FOR THE TRANSFER. [facility] IS COORDINATING FOR THE TRANSPORT ( ).
--- NOTE | 2019-01-12 20:00 | NUR ---
TECHNICAL COORDINATOR OPENING NOTES RECEIVED REPORT FROM BHARAT HERNANDEZ. PATIENT A/A/O X4, SITTING UP ON SIDE OF BED & ABLE TO VERBALIZE NEEDS. BREATHING EVEN & UNLABORED, TOLERATING ROOM AIR. DENIES ANY SOB OR DIFFICULTY BREATHING. ON TELE W/ SINUS RHYTHM, HR 60S. RIGHT UPPER ARM TLC PICC LINE INTACT & PATENT W/ DRESSING CDI ON TKO. NEW IV ON RIGHT FOREARM INSERTED, #18 W/ GOOD BLOOD RETURN NOTED. HD CATH PRESENT ON LEFT SUBCLAVIAN & LEFT AV SHUNT PRESENT IN LEFT UPPER ARM. ILEOSTOMY PRESENT W/ NO SIGNS OF INFECTION NOTED. BAG IN PLACE. C/O CHRONIC BACK PAIN W/ PAIN LEVEL 7/10, PAIN MED TO BE GIVEN. SAFETY MEASURES IN PLACE W/ SIDE RAILS UP & BED ALARM ON. CALL LIGHT PLACED WITHIN REACH & INSTRUCTED TO CALL FOR ASSISTANCE. WILL CONTINUE TO MONITOR CLOSELY.
--- NOTE | 2019-01-12 20:10 | NUR ---
ELEVATOR TENDER NOTES TALKED TO GASTROENTEROLOGY NURSE PRACTITIONER, SRAVANTHI & PER SRAVANTHI, PATIENT WILL BE PICKED UP BY AMBULANCE @ 2114 & TRANSFERRED TO [facility]. PATIENT MADE AWARE.
[2019-01-12] MEDS: DOCUSATE SODIUM 100 MG CAPSULE PO SCH (21:22)
--- NOTE | 2019-01-12 21:45 | NUR ---
MANAGEMENT ACCOUNTS MANAGER NOTES PATIENT PICKED UP BY AMBULANCE & REPORT GIVEN TO RN @ ANIYA KRAUSE. FLU VACCINE NON-ADMIN BECAUSE PER PATIENT, FLU VACCINE WAS RECEIVED ON 12/10. PATIENT EDUCATION GIVEN & ALL DISCHARGE PAPERS SIGNED.
== END 2019-01-12 22:28 | disposition short-term general hospital (02) | DRG 853 ==
LOC: ER 17:54 → TELE1 20:19 → ICU 22:36
PROVIDERS: ADMIT Nurse Practitioner Acute Care; ATTEND Family Medicine
PROC: 02HV33Z Insertion of Infusion Device into Superior Vena Cava, Percutaneous Approach (ICD-10-PCS; 2018-12-26)
PROC: 5A1D70Z Performance of Urinary Filtration, Intermittent, Less than 6 Hours Per Day (ICD-10-PCS; 2018-12-26)
PROC: B548ZZA Ultrasonography of Superior Vena Cava, Guidance (ICD-10-PCS; 2018-12-26)
PROC: 0KBC0ZZ Excision of Right Hand Muscle, Open Approach (ICD-10-PCS; principal; 2018-12-28)
PROC: 0JBJ0ZZ Excision of Right Hand Subcutaneous Tissue and Fascia, Open Approach (ICD-10-PCS; principal; 2018-12-28)
PROC: B548ZZA Ultrasonography of Superior Vena Cava, Guidance (ICD-10-PCS; 2019-01-08)
PROC: 05PYX3Z Removal of Infusion Device from Upper Vein, External Approach (ICD-10-PCS; 2019-01-08)
PROC: 02HV33Z Insertion of Infusion Device into Superior Vena Cava, Percutaneous Approach (ICD-10-PCS; 2019-01-08)
DX: A41.9 Sepsis, unspecified organism (principal); N18.6 End stage renal disease; R65.21 Severe sepsis with septic shock; G93.41 Metabolic encephalopathy; E44.0 Moderate protein-calorie malnutrition; I12.0 Hypertensive chronic kidney disease with stage 5 chronic kidney disease or end stage renal disease; E87.1 Hypo-osmolality and hyponatremia; I47.2 Ventricular tachycardia; E86.0 Dehydration; R65.20 Severe sepsis without septic shock; Z99.2 Dependence on renal dialysis; E11.43 Type 2 diabetes mellitus with diabetic autonomic (poly)neuropathy; E11.22 Type 2 diabetes mellitus with diabetic chronic kidney disease; D63.1 Anemia in chronic kidney disease; E11.610 Type 2 diabetes mellitus with diabetic neuropathic arthropathy; L30.4 Erythema intertrigo; K31.84 Gastroparesis; K21.9 Gastro-esophageal reflux disease without esophagitis; Z94.7 Corneal transplant status; M10.9 Gout, unspecified; I95.3 Hypotension of hemodialysis; E11.42 Type 2 diabetes mellitus with diabetic polyneuropathy; E11.51 Type 2 diabetes mellitus with diabetic peripheral angiopathy without gangrene; E11.65 Type 2 diabetes mellitus with hyperglycemia; F17.210 Nicotine dependence, cigarettes, uncomplicated; I25.10 Atherosclerotic heart disease of native coronary artery without angina pectoris; E88.09 Other disorders of plasma-protein metabolism, not elsewhere classified; Z93.2 Ileostomy status; Z79.4 Long term (current) use of insulin; Z91.19 Patient's noncompliance with other medical treatment and regimen; Z68.22 Body mass index [BMI] 22.0-22.9, adult; L98.8 Other specified disorders of the skin and subcutaneous tissue; L89.210 Pressure ulcer of right hip, unstageable; Z22.322 Carrier or suspected carrier of Methicillin resistant Staphylococcus aureus; S61.401A Unspecified open wound of right hand, initial encounter; X58.XXXA Exposure to other specified factors, initial encounter; Y93.9 Activity, unspecified; Y92.129 Unspecified place in nursing home as the place of occurrence of the external cause; L89.890 Pressure ulcer of other site, unstageable; I44.7 Left bundle-branch block, unspecified; I95.1 Orthostatic hypotension; R93.1 Abnormal findings on diagnostic imaging of heart and coronary circulation; L84 Corns and callosities
CPT/HCPCS: 36415; 70450-TC; 71045-TC; 75574; 80048-TC; 80053-TC; 80061-TC; 80076-TC; 80202-TC; 81000-TC; 82533; 82962-TC; 83605-TC; 83735-TC; 84100-TC; 84443-TC; 84484-TC; 85025-TC; 85730-TC; 86706; 87040-TC; 87070-TC; 87081-TC; 87086-TC; 87340; 90935-TC; 93307-TC; 93880-TC; A4216; A6248; A6403; C1751; G0378; J0282; J0692; J1720; J1815; J2185; J2370; J2543; J2997; J3370; J3490; J7030; J7040; J7050; J7060; J8597; Q9967

== ENCOUNTER 2019-01-18 16:03 | Inpatient (IN) | payer BC, OTHER ==
[~2019-01-18] VITALS: Ht 172.7 cm; Wt 76.7 kg
[~2019-01-18 16:03] MED LIST changes: +AMIO200T7 PO; -ASCO500T9 PO; +Hydrocortisone Sod Succinate IV; -LACT1CAP57 PO; +LACT1CAP69 PO; -LOPE2CAP PO; -MAGN400O21 PO; -MIDO5TAB PO; +Midodrine Hcl (5MG) PO; +NEOM1PAC2 TP; -ONDA4TAB5 PO; -ZINC220C6 PO
[2019-01-18 20:00] VITALS: BP 115/72
--- NOTE | 2019-01-18 20:00 | NUR ---
FLOWERS SALESPERSON OPENING NOTES PATIENT RECEIVED DIRECT ADMISSION FROM [facility] & ADMITTED TO ROOM 110 W/ DX HEART ARRHYTHMIA UNDER CARE OF DR CALDERON. PATIENT IS ALSO S/P SUBCUTANEOUS AICD PLACEMENT IN LEFT LOWER MEDIAL CHEST. PATIENT IS A/A/O X4 & ABLE TO ANSWER QUESTIONS & FOLLOW SIMPLE COMMANDS. NOTED W/ SEMI STEADY GAIT WHEN TRANSFERRING FROM GURNEY TO BED W/ ONE PERSON ASSIST. BREATHING EVEN & UNLABORED, TOLERATING ROOM AIR. DENIES ANY SOB OR DIFFICULTY BREATHING. SINUS RHYTHM W/ BBB ON TELE MONITOR & HR IN 80S. RIGHT FOREARM IV #18 INTACT & PATENT W/ DRESSING CDI & LEFT CHEST WALL HD CATH IN PLACE. NO S/S OF SWELLING OR BLEEDING. OLD AV FISTULA NOTED IN LEFT UPPER ARM. DRESSING CLEAN & DRY ON AICD SX SITE. ILEOSTOMY NOTED W/ BAG IN PLACE. C/O CHRONIC BACK PAIN W/ PAIN LEVEL 5/10. SKIN ASSESSMENT DONE & ORIENTED TO ROOM & STAFF. SAFETY MEASURES IN PLACE W/ SIDE RAILS UP & BED ALARM ON. INSTRUCTED USE CALL LIGHT FOR ASSISTANCE. AWAITING ADMITTING ORDERS.
[2019-01-18] MEDS ORDERED: PREG75CA PO (23:04)
[2019-01-18] MEDS ORDERED: FOLI0.8T2 PO (23:04)
[2019-01-18] MEDS ORDERED: OXYC5TAB3 PO (23:04)
[2019-01-18] MEDS ORDERED: DOCU100C36 PO (23:04)
[2019-01-18] MEDS ORDERED: HYDR-4384 PO (23:04)
[2019-01-18] MEDS ORDERED: DULO30CA2 PO (23:04)
[2019-01-18] MEDS ORDERED: ACET325T53 PO (23:04)
[2019-01-18] MEDS ORDERED: INSU100C10 SQ (23:04)
[2019-01-18] MEDS ORDERED: LACT1CAP61 PO (23:04)
[2019-01-18] MEDS ORDERED: GABA-532 PO (23:04)
[2019-01-18] MEDS ORDERED: PANT40TA4 PO (23:04)
[2019-01-18] MEDS ORDERED: FOLI1TAB16 PO (23:04)
[2019-01-18] MEDS ORDERED: MIDO10TA PO (23:04)
[2019-01-18] MEDS ORDERED: SENN-18 PO (23:04)
[2019-01-18] MEDS ORDERED: ACET-73 PO ×2 (23:04)
[2019-01-18] MEDS ORDERED: AMIO200T4 PO (23:04)
[2019-01-18] MEDS ORDERED: FERR325T23 PO (23:04)
[2019-01-18] MEDS ORDERED: ONDA4SYR IV (23:04)
[2019-01-18] MEDS ORDERED: CALC667C6 PO (23:04)
[2019-01-18] MEDS ORDERED: MAG HYDROX/AL HYDROX/SIMETH 30 ML UDC PO PRN (23:30)
[2019-01-18] MEDS ORDERED: MISCELLANEOUS MED 1 EA EA PO PRN (23:30)
[2019-01-18] MEDS ORDERED: BISACODYL SUPP (10 MG) 10 MG/SUPP.RECT SUPP.RECT RC PRN (23:30)
[2019-01-18] MEDS ORDERED: NA PHOS,M-B/NA PHOS,DI-BA 1 EA ENEMA RC PRN (23:30)
[2019-01-19] VITALS (7 sets, daily range): BP systolic 99–118; BP diastolic 60–77
[2019-01-19] MEDS ORDERED: ACETAMINOPHEN 325 MG TABLET PO PRN (00:30)
[2019-01-19] MEDS ORDERED: ONDANSETRON HCL/PF 4 MG/2 ML VIAL IVP PRN (00:30)
[2019-01-19] MEDS ORDERED: ZOLPIDEM TARTRATE 5 MG TABLET PO PRN (00:30)
[2019-01-19 06:59] LABS: BASOPHILS % (AUTO) 0.6 % (0.0-2.0); EOSINOPHILS % (AUTO) 1.1 % (0.0-6.0); HEMATOCRIT 26 % (39-51); HEMOGLOBIN 8.2 g/dL (13.5-17.5); LYMPHOCYTES % (AUTO) 14.1 % (20.0-44.0); MEAN CORPUSCULAR HGB CONC 32 g/dl (31.0-36.0); MEAN CORPUSCULAR VOLUME 89 fL (80-96); MONOCYTES # (AUTO) 0.5 /CMM (0.1-1.30); MONOCYTES % (AUTO) 6.9 % (2.0-12.0); NEUTROPHILS # (AUTO) 5.4 /CMM (1.8-8.9); NEUTROPHILS % (AUTO) 77.3 % (43.0-81.0); PLATELET COUNT (AUTO) 124 /CMM (150-450); RED BLOOD CELL COUNT(AUTO) 2.91 MIL/uL (4.5-6.0)
--- NOTE | 2019-01-19 07:10 | NUR ---
RN OPENING NOTES PT IS RESTING IN BED. PT DENIES SOB STATES HE IS HAVING PAIN AND WOULD LIKE MEDICATION FOR THE PAIN. REPORT RECEIVED FROM MANAGER COMMODITIES RN.PT IS SR 87 ON TELE MONITOR. BED IS LOCKED AND IN LOWEST POSITION WITH CALL LIGHT IN REACH.WILL CONTINUE TO MONITOR.
[2019-01-19 07:42] LABS: ALANINE AMINOTRANSFERASE < 6 U/L (12-78); ALBUMIN 1.8 g/dL (3.4-5.0); ALKALINE PHOSPHATASE 121 U/L (46-116); ASPARTATE AMINOTRANSFERASE 9 U/L (15-37); BILIRUBIN,TOTAL 0.3 mg/dL (0.2-1.0); CALCIUM, SERUM 8.1 mg/dL (8.5-10.1); CARBON DIOXIDE 16 mmol/L (21-32); CHLORIDE 105 mmol/L (98-107); GLUCOSE 191 mg/dL (74-106); MAGNESIUM 1.5 mg/dL (1.8-2.4); SODIUM SERUM 138 mmol/L (136-145); UREA NITROGEN, BLOOD 53 mg/dL (7-18)
[2019-01-19 07:43] LABS: CREATININE 8.1 mg/dL (0.6-1.3)
[2019-01-19] MEDS: PREGABALIN 100 MG CAPSULE PO SCH ×2 (08:37→17:13)
[2019-01-19] MEDS: FERROUS SULFATE (325 MG) 325 MG/TAB TABLET PO SCH ×2 (08:37→17:13)
[2019-01-19] MEDS: DULOXETINE HCL 30 MG CAPSULE.DR PO SCH ×2 (08:37→20:39)
[2019-01-19] MEDS: PANTOPRAZOLE 40 MG TABLET.DR PO SCH (08:37)
[2019-01-19] MEDS: GABAPENTIN 100 MG CAPSULE PO SCH ×3 (08:37→17:13)
[2019-01-19] MEDS: VIT B CMPLX 3/FA/VIT C/BIOTIN 1 TAB TABLET PO SCH (08:37)
[2019-01-19] MEDS: LACTOBACILLUS RHAMNOSUS GG 1 EACH CAP.SPRINK PO SCH ×2 (08:37→17:13)
[2019-01-19] MEDS: CALCIUM ACETATE 667 MG TABLET PO SCH ×3 (08:37→17:13)
[2019-01-19] MEDS: FOLIC ACID 1 MG TABLET PO SCH (08:37)
[2019-01-19] MEDS: AMIODARONE HCL 200 MG TABLET PO SCH ×3 (08:38→17:14)
[2019-01-19] MEDS: HYDROCODONE/APAP 5/325MG 1 EACH TABLET PO PRN ×3 (08:39→20:44)
[2019-01-19] MEDS ORDERED: MISCELLANEOUS MED 1 EA EA PO SCH (09:00)
[2019-01-19] MEDS ORDERED: HYDROCORTISONE SOD SUCCINATE IV SCH (09:00)
[2019-01-19] MEDS: MIDODRINE HCL (5MG) 5 MG TABLET PO SCH ×3 (09:30→17:14)
[2019-01-19] MEDS: BACI/NEOM/POLY B OINT PKT 1 UDPKT PACKET TP SCH (10:00)
[2019-01-19] MEDS: HYDROGEL DRESSING 90 GM TUBE TP SCH (15:20)
[2019-01-19] MEDS: CLOTRIMAZOLE 1% 15 GM TUBE TP SCH (18:31)
--- NOTE | 2019-01-19 19:01 | NUR ---
RN CLOSING NOTES PT IS RESTING IN BED. PT DENIES SOB AND PAIN AT PRESENT MOMENT.PT IS SR 75 ON TELE MONITOR. BED IS LOCKED AND IN LOWEST POSITION WITH CALL LIGHT IN REACH. PT COLOSTOMY BAG IS IN PLACE. PT IS ABLE TO MAKE NEED KNOWN WILL ENDORSE SADIA TO LION HUNTER RN.
[2019-01-19] MEDS ORDERED: DOCUSATE SODIUM 100 MG CAPSULE PO SCH (22:00)
[2019-01-20 00:34] VITALS: BP 112/68
[2019-01-20] MEDS: HYDROCODONE/APAP 5/325MG 1 EACH TABLET PO PRN ×3 (02:07→16:38)
--- NOTE | 2019-01-20 04:02 | NUR ---
Utilized frequent monitoring of ileostomy bag. Encouraged patient to have as needed snacks. Patient ate a sandwich and also a few crackers. Most of the output from the bag came at the beginning of the shift. Patient notes he has pain in his left side of the back and also thorax on the left side. Improvement of troponin appreciated. Patient sleeping at this time. Even, unlabored breathing. Will continue to monitor. Rajan Erickson RN
[2019-01-20 04:27] VITALS: BP 115/70
[2019-01-20] MEDS: PANTOPRAZOLE 40 MG TABLET.DR PO SCH (05:27)
--- NOTE | 2019-01-20 06:49 | NUR ---
Change of wound dressings. Patient ileostomy bag dislodged. Replaced ileostomy device. Handoff to MARY Ramos. Rajan Erickson RN
[2019-01-20 06:56] LABS: BASOPHILS # (AUTO) 0.1 /CMM (0.0-0.2); BASOPHILS % (AUTO) 0.8 % (0.0-2.0); EOSINOPHILS % (AUTO) 2.6 % (0.0-6.0); HEMATOCRIT 27 % (39-51); HEMOGLOBIN 8.5 g/dL (13.5-17.5); LYMPHOCYTES # (AUTO) 0.9 /CMM (0.8-4.8); LYMPHOCYTES % (AUTO) 12.1 % (20.0-44.0); MEAN CORPUSCULAR HGB CONC 32 g/dl (31.0-36.0); MEAN CORPUSCULAR VOLUME 90 fL (80-96); MONOCYTES # (AUTO) 0.5 /CMM (0.1-1.30); MONOCYTES % (AUTO) 5.9 % (2.0-12.0); NEUTROPHILS # (AUTO) 6.1 /CMM (1.8-8.9); NEUTROPHILS % (AUTO) 78.6 % (43.0-81.0); PLATELET COUNT (AUTO) 142 /CMM (150-450); RED BLOOD CELL COUNT(AUTO) 3.01 MIL/uL (4.5-6.0); WHITE BLOOD COUNT (AUTO) 7.7 K/uL (4.3-11.0)
[2019-01-20 07:34] LABS: ALBUMIN 1.9 g/dL (3.4-5.0); BILIRUBIN,TOTAL 0.3 mg/dL (0.2-1.0); CALCIUM, SERUM 8.5 mg/dL (8.5-10.1); MAGNESIUM 1.7 mg/dL (1.8-2.4); PHOSPHORUS 4.4 mg/dL (2.5-4.9); TOTAL PROTEIN, SERUM 5.4 g/dL (6.4-8.2)
[2019-01-20 07:40] LABS: CREATININE 9.6 mg/dL (0.6-1.3)
--- NOTE | 2019-01-20 07:47 | NUR ---
RN AM SHIFT NOTE PATIENT AWAKE AND ALERT, COMPLAINT OF PAIN NOTED, CURRENT MEDICATION EFFECTIVE IN MANANEMENT. BED IN LOW POSITION CALL LGITH WITHIN REACH ALL NEEDS MET AT THIS TIME. CONTINUE TO MONTIOR.
[2019-01-20 08:00] VITALS: BP 115/65
[2019-01-20] MEDS: CALCIUM ACETATE 667 MG TABLET PO SCH ×2 (08:00→12:35)
[2019-01-20] MEDS ORDERED: EPOETIN ALFA (10,000 UNIT) 10,000 UNIT/ML VIAL IV ONE (08:30)
--- NOTE | 2019-01-20 08:47 | NUR ---
WOUND CARE CONSULT: PT FOLLOWED BY SURGICAL TEAMS FOR WOUNDS. DEFER TO SURGICAL TEAM FOR WOUND TREATMENT PLAN. WILL SEE PRN. DISCUSSED SKIN PROTECTION WITH NURSING STAFF. ISOFLEX LOW AIRLOSS BED TO BE PLACED WHEN AVAILABLE.
[2019-01-20] MEDS ORDERED: Z GUARD REMEDY 2 OZ OINT TP SCH ×2 (09:00→15:30)
[2019-01-20] MEDS ORDERED: Z GUARD REMEDY 2 OZ OINT TP PRN (09:00)
[2019-01-20] MEDS: DULOXETINE HCL 30 MG CAPSULE.DR PO SCH (09:19)
[2019-01-20] MEDS: AMIODARONE HCL 200 MG TABLET PO SCH ×2 (09:20→12:33)
[2019-01-20] MEDS: VIT B CMPLX 3/FA/VIT C/BIOTIN 1 TAB TABLET PO SCH (09:20)
[2019-01-20] MEDS: MIDODRINE HCL (5MG) 5 MG TABLET PO SCH ×2 (09:21→12:32)
[2019-01-20] MEDS: FERROUS SULFATE (325 MG) 325 MG/TAB TABLET PO SCH (09:24)
[2019-01-20] MEDS: LACTOBACILLUS RHAMNOSUS GG 1 EACH CAP.SPRINK PO SCH (09:24)
[2019-01-20] MEDS: FOLIC ACID 1 MG TABLET PO SCH (09:24)
[2019-01-20] MEDS: GABAPENTIN 100 MG CAPSULE PO SCH ×2 (09:24→12:32)
[2019-01-20] MEDS: PREGABALIN 100 MG CAPSULE PO SCH (09:24)
[2019-01-20] MEDS: HYDROGEL DRESSING 90 GM TUBE TP SCH (09:26)
--- NOTE | 2019-01-20 11:28 | NUR ---
LUBRICATING SPECIALIST NOTES PATIENT GETTING DIALYSIS [facility].
[2019-01-20] MEDS: CLOTRIMAZOLE 1% 15 GM TUBE TP SCH (11:32)
[2019-01-20] MEDS: BACI/NEOM/POLY B OINT PKT 1 UDPKT PACKET TP SCH (11:33)
[2019-01-20 12:00] VITALS: BP 110/64
[2019-01-20 14:01] LABS: OCCULT BLOOD STOOL POSITIVE (NEGATIVE)
[2019-01-20 16:00] VITALS: BP 110/64
--- NOTE | 2019-01-20 16:01 | NUR ---
RN NOTE RECEIVED REPORT FROM MARY SULLIVAN FOR SADIA OF THIS PATIENT. PATIENT HAS A DISCHARGE ORDER FROM MD. ALL EXIT CARE DONE. PATIENT'S FISH RECEIVER TIME AT 1730 GOING TO [facility].
--- NOTE | 2019-01-20 16:18 | NUR ---
RN NOTE REPORT GIVEN TO MARY CARVALHO FROM [facility]
--- NOTE | 2019-01-20 17:38 | NUR ---
BI TESTER NOTES PATIENT AWAKE HE IS GOING TO [email or web address]. AMBULANCE IS HERE TO PICK HIM UP. HE ASKED TO REPLACE HIS ILEOSTOMY BAG BEFORE LEAVING. ORDERED EARLY DINNER FOR THE PATIENT. ATE 100% OF HIS FOOD. PATIENT. VSS. BELONGINGS LIST SIGNED. IV SITE REMOVED. ID BAND REMOVED. NO COMPLAINS OF ANY PAIN NOR SOB AT THIS TIME. CALLED YI, HIS , NO ANSWER, LEFT A VOICEMAIL AND A CALL BACK NUMBER FOR ANY QUESTIONS. Addendum: 01/20/19 at 1743 by WES WILSON RN DISCHARGE PICTURES TAKEN BY THE NURSE BEFORE ID
== END 2019-01-20 17:40 | DRG 264 ==
LOC: MEDSG1 19:37 → TELE1 01-19 00:14 → MEDSG1 01-19 16:21 → TELE1 01-19 21:56
PROVIDERS: ADMIT Internal Medicine
DX: I13.2 Hypertensive heart and chronic kidney disease with heart failure and with stage 5 chronic kidney disease, or end stage renal disease (principal); L89.153 Pressure ulcer of sacral region, stage 3; I50.41 Acute combined systolic (congestive) and diastolic (congestive) heart failure; N18.6 End stage renal disease; E43 Unspecified severe protein-calorie malnutrition; I21.A1 Myocardial infarction type 2; L89.213 Pressure ulcer of right hip, stage 3; E11.52 Type 2 diabetes mellitus with diabetic peripheral angiopathy with gangrene; I96 Gangrene, not elsewhere classified; I47.2 Ventricular tachycardia; D68.59 Other primary thrombophilia; Z99.2 Dependence on renal dialysis; Z95.810 Presence of automatic (implantable) cardiac defibrillator; I25.10 Atherosclerotic heart disease of native coronary artery without angina pectoris; E11.22 Type 2 diabetes mellitus with diabetic chronic kidney disease; E11.610 Type 2 diabetes mellitus with diabetic neuropathic arthropathy; M10.9 Gout, unspecified; G89.29 Other chronic pain; M19.90 Unspecified osteoarthritis, unspecified site; D63.8 Anemia in other chronic diseases classified elsewhere; F17.210 Nicotine dependence, cigarettes, uncomplicated; J44.9 Chronic obstructive pulmonary disease, unspecified; E78.5 Hyperlipidemia, unspecified; E11.65 Type 2 diabetes mellitus with hyperglycemia; Z68.25 Body mass index [BMI] 25.0-25.9, adult; E11.42 Type 2 diabetes mellitus with diabetic polyneuropathy; K21.9 Gastro-esophageal reflux disease without esophagitis; R53.1 Weakness; L84 Corns and callosities; L30.4 Erythema intertrigo; L89.890 Pressure ulcer of other site, unstageable; D69.6 Thrombocytopenia, unspecified; I44.7 Left bundle-branch block, unspecified; I95.9 Hypotension, unspecified; Z93.2 Ileostomy status; L98.8 Other specified disorders of the skin and subcutaneous tissue; S61.401A Unspecified open wound of right hand, initial encounter; X58.XXXA Exposure to other specified factors, initial encounter; Y92.89 Other specified places as the place of occurrence of the external cause
CPT/HCPCS: 36415; 80053-TC; 82272-TC; 82728-TC; 83540-TC; 83735-TC; 84100-TC; 84484-TC; 85025-TC; 85610-TC; 86706; 87340; 90935-TC; A6248; G0378; J0885

== ENCOUNTER 2019-01-25 06:22 | Inpatient (IN) | payer BC, OTHER ==
[~2019-01-25] VITALS: Ht 175.3 cm; Wt 84.4 kg
[2019-01-25] VITALS (74 sets, daily range): BP systolic 59–148; BP diastolic 16–110
[~2019-01-25 06:22] MED LIST changes: -ACET-2030 PO; +ACET-73 PO; +CALC667C6 PO; -FOLI1TAB16 PO; -HYDR-4354 PO; +INSU100C10 SQ; -INSU100V3 SQ; +MIDO10TA PO; -Midodrine Hcl (5MG) PO; +ONDA4SYR IV; +OXYC5TAB3 PO; -PREG100C PO; +PREG75CA PO; +SENN-18 PO
[2019-01-25] MEDS ORDERED: [UNRECOGNIZED DRUG - OTHER] IV ONE (06:46)
[2019-01-25] MEDS ORDERED: CALCIUM CHLORIDE 1,000 MG/10 ML DISP.SYRIN ONE ×2 (06:46→06:48)
[2019-01-25] MEDS ORDERED: SODIUM BICARBONATE SYR 50 MEQ/50 ML DISP.SYRIN ONE ×2 (06:48→07:55)
[2019-01-25] MEDS ORDERED: CALCIUM CHLORIDE 1,000 MG/10 ML DISP.SYRIN IV ONE (07:00)
[2019-01-25] MEDS ORDERED: SODIUM BICARBONATE SYR 50 MEQ/50 ML DISP.SYRIN IV ONE ×4 (07:00→11:00)
[2019-01-25] MEDS ORDERED: INSULIN REGULAR, HUMAN 100 UNIT/ML 10 ML VIAL ONE (07:01)
[2019-01-25] MEDS ORDERED: DEXTROSE 50%-WATER 50 ML DISP.SYRIN ONE (07:01)
[2019-01-25 07:08] LABS: BASOPHILS # (AUTO) 0.3 /CMM (0.0-0.2); BASOPHILS % (AUTO) 0.8 % (0.0-2.0); EOSINOPHILS % (AUTO) 0.2 % (0.0-6.0); HEMATOCRIT 21 % (39-51); LYMPHOCYTES # (AUTO) 2.1 /CMM (0.8-4.8); LYMPHOCYTES % (AUTO) 6.3 % (20.0-44.0); MEAN CORPUSCULAR HGB CONC 28 g/dl (31.0-36.0); MEAN CORPUSCULAR VOLUME 97 fL (80-96); MONOCYTES # (AUTO) 0.9 /CMM (0.1-1.30); MONOCYTES % (AUTO) 2.7 % (2.0-12.0); NEUTROPHILS # (AUTO) 29.8 /CMM (1.8-8.9); PLATELET COUNT (AUTO) 316 /CMM (150-450); RED BLOOD CELL COUNT(AUTO) 2.21 MIL/uL (4.5-6.0)
[2019-01-25 07:11] LABS: HEMOGLOBIN 5.9 g/dL (13.5-17.5); WHITE BLOOD COUNT (AUTO) 33.1 K/uL (4.3-11.0)
[2019-01-25] MEDS ORDERED: SACC250C PO (07:21)
[2019-01-25] MEDS ORDERED: VANCOMYCIN 1 GM VIAL ONE (07:21)
[2019-01-25] MEDS ORDERED: FOLI1TAB16 PO (07:21)
[2019-01-25] MEDS ORDERED: ZOLP5TAB8 PO (07:21)
[2019-01-25] MEDS ORDERED: PIPERACILLIN /TAZOBACTAM 3.375 G VIAL IV ONE (07:21)
[2019-01-25] MEDS ORDERED: PREG100C55 PO (07:21)
[2019-01-25] MEDS ORDERED: MAGN400O6 PO (07:21)
[2019-01-25] MEDS ORDERED: AMIO200T4 PO (07:23)
[2019-01-25 07:24] LABS: ALANINE AMINOTRANSFERASE 13 U/L (12-78); ALBUMIN 2.2 g/dL (3.4-5.0); ALKALINE PHOSPHATASE 155 U/L (46-116); ASPARTATE AMINOTRANSFERASE 30 U/L (15-37); BILIRUBIN,DIRECT 0.1 mg/dL (0.0-0.2); BILIRUBIN,TOTAL 0.3 mg/dL (0.2-1.0); CALCIUM, SERUM 9.7 mg/dL (8.5-10.1); CHLORIDE 97 mmol/L (98-107); GLUCOSE 276 mg/dL (74-106); SODIUM SERUM 129 mmol/L (136-145); TOTAL PROTEIN, SERUM 5.6 g/dL (6.4-8.2)
[2019-01-25 07:26] LABS: CARBON DIOXIDE 6 mmol/L (21-32); POTASSIUM 8.4 mmol/L (3.5-5.1); UREA NITROGEN, BLOOD 160 mg/dL (7-18)
[2019-01-25] MEDS ORDERED: INSULIN REGULAR, HUMAN 100 UNIT/ML 10 ML VIAL IV ONE (07:30)
[2019-01-25] MEDS ORDERED: VANCOMYCIN 1 GM in IV D5W 250 ML IV ONE ×2 (07:30→22:00)
[2019-01-25] MEDS ORDERED: IV NS 0.9% 1,000 ML BAG IV ONE (07:30)
[2019-01-25] MEDS ORDERED: DEXTROSE 50%-WATER 50 ML DISP.SYRIN IV ONE (07:30)
[2019-01-25] MEDS ORDERED: PIPERACILLIN /TAZOBACTAM 3.375 G in IV D5W 50 ML IV ONE (07:30)
[2019-01-25 08:09] LABS: LYMPHOCYTES % (MANUAL) 11 % (16-48); METAMYELOCYTES % 2 % (0-0); MONOCYTES % (MANUAL) 5 % (0-11.0); NEUTROPHILS % (MANUAL) 82 (42-76)
[2019-01-25] MEDS: MIDODRINE HCL (5MG) 5 MG TABLET PO SCH ×3 (08:21→16:09)
[2019-01-25] MEDS: HYDROCORTISONE SOD SUCCINATE 100 MG/2 ML VIAL IV SCH ×3 (08:22→16:09)
[2019-01-25] MEDS: AMIODARONE HCL 200 MG TABLET PO SCH ×3 (08:22→16:09)
[2019-01-25] MEDS ORDERED: NOREPINEPHRINE 16 MG in IV D5W 500 ML IV PRN ×4 (09:00)
[2019-01-25 09:47] LABS: ABG BASE EXCESS -22.6 mmol/L; ABG OXYGEN SATURATION 98.8 % (92.0-98.5); ABG PCO2 22.3 mmHg (35.0-45.0); ABG PH 7.042 (7.350-7.450); ABG PO2 240.5 mmHg (75.0-100.0); AaDO2 450.2 mmHg; MetHb 1.4 % (0.0-1.5); O2Hb 96.4 % (94.0-97.0); SITE, ABG Right Radial
[2019-01-25] MEDS ORDERED: Sodium Acetate 150 MEQ in IV D5W 1,000 ML IV PRN (10:00)
[2019-01-25] MEDS ORDERED: MEROPENEM 500 MG in IV NS 0.9% 50 ML IV ONE (10:00)
[2019-01-25] MEDS ORDERED: ALTEPLASE CATHFLO 2 MG/VIAL IV ONE (10:30)
[2019-01-25] MEDS ORDERED: PHENYLEPHRINE 20 MG in IV D5W 250 ML IV PRN ×4 (11:00)
[2019-01-25] MEDS: FLUDROCORTISONE 0.1 MG TABLET PO SCH ×2 (11:44→17:49)
[2019-01-25] MEDS: PROPOFOL 100 ML IV PRN ×2 (11:45→18:27)
[2019-01-25] MEDS: CLOTRIMAZOLE 1% 15 GM TUBE TP SCH ×2 (12:50→16:10)
[2019-01-25] MEDS: Z GUARD REMEDY 2 OZ OINT TP SCH ×2 (12:50→21:08)
[2019-01-25] MEDS: HYDROGEL DRESSING 90 GM TUBE TP SCH (12:51)
[2019-01-25] MEDS: Sodium Bicarbonate 150 MEQ in IV D5W 1,000 ML IV PRN (12:51)
[2019-01-25 13:50] LABS: ABG BASE EXCESS -9.7 mmol/L; ABG OXYGEN SATURATION 98.5 % (92.0-98.5); ABG PH 7.347 (7.350-7.450); ABG PO2 246.1 mmHg (75.0-100.0); AaDO2 438.9 mmHg; COHb 0.3 % (0.5-1.5); MetHb 1.7 % (0.0-1.5); O2Hb 96.5 % (94.0-97.0); PEEP,BG 0 cm H2O; SITE, ABG Left Radial; VT, ABG 550 mL
[2019-01-25 14:18] LABS: CALCIUM, SERUM 8.7 mg/dL (8.5-10.1); POTASSIUM 4.6 mmol/L (3.5-5.1)
[2019-01-25 14:20] LABS: CREATININE 8.8 mg/dL (0.6-1.3)
[2019-01-25 14:36] LABS: BASOPHILS # (AUTO) 0.1 /CMM (0.0-0.2); BASOPHILS % (AUTO) 0.3 % (0.0-2.0); LYMPHOCYTES # (AUTO) 1.4 /CMM (0.8-4.8); LYMPHOCYTES % (AUTO) 4.6 % (20.0-44.0); MEAN CORPUSCULAR HGB CONC 31 g/dl (31.0-36.0); MEAN CORPUSCULAR VOLUME 90 fL (80-96); MONOCYTES # (AUTO) 0.6 /CMM (0.1-1.30); MONOCYTES % (AUTO) 2.2 % (2.0-12.0); NEUTROPHILS # (AUTO) 27.2 /CMM (1.8-8.9); NEUTROPHILS % (AUTO) 92.9 % (43.0-81.0); PLATELET COUNT (AUTO) 224 /CMM (150-450); RED BLOOD CELL COUNT(AUTO) 2.08 MIL/uL (4.5-6.0); WHITE BLOOD COUNT (AUTO) 29.3 K/uL (4.3-11.0)
[2019-01-25 14:53] LABS: HEMATOCRIT 19 % (39-51); HEMOGLOBIN 5.8 g/dL (13.5-17.5)
[2019-01-25 15:32] LABS: BAND % (MANUAL) 2 % (0.0-5.0); LYMPHOCYTES % (MANUAL) 5 % (16-48); MONOCYTES % (MANUAL) 2 % (0-11.0); NEUTROPHILS % (MANUAL) 90 (42-76)
[2019-01-25 15:33] LABS: METAMYELOCYTES % 1 % (0-0)
[2019-01-25] MEDS: PANTOPRAZOLE 40 MG VIAL IV SCH (16:10)
[2019-01-25 16:18] LABS: OCCULT BLOOD STOOL POSITIVE (NEGATIVE)
[2019-01-25] MEDS ORDERED: Z GUARD REMEDY 2 OZ OINT TP PRN (16:30)
[2019-01-25] MEDS ORDERED: ONDANSETRON HCL/PF 4 MG/2 ML VIAL IVP PRN (16:30)
[2019-01-25 16:53] LABS: FERRITIN 2468 ng/mL (8-388)
[2019-01-25 17:00] LABS: IRON, SERUM 96 ug/dl (50-175); TOTAL IRON BINDING CAPACITY 105 ug/dl (250-450)
[2019-01-25] MEDS: PHENYLEPHRINE 80 MG in IV NS 0.9% 250 ML IV PRN (17:37)
[2019-01-25] MEDS ORDERED: FEE PK DOSING 1 MIN EA MC ONE (21:00)
[2019-01-25] MEDS: MEROPENEM 500 MG in IV NS 0.9% 100 ML IV SCH (21:08)
[2019-01-25] MEDS ORDERED: IV NS 0.9% 250 ML IV ONE (21:30)
[2019-01-26] VITALS (106 sets, daily range): BP systolic 56–266; BP diastolic 16–210
[2019-01-26] MEDS: FLUDROCORTISONE 0.1 MG TABLET PO SCH ×4 (00:04→17:46)
[2019-01-26] MEDS: PROPOFOL 100 ML IV PRN ×7 (01:21→20:00)
[2019-01-26 01:33] LABS: BASOPHILS % (AUTO) 0.2 % (0.0-2.0); LYMPHOCYTES # (AUTO) 0.7 /CMM (0.8-4.8); LYMPHOCYTES % (AUTO) 4.2 % (20.0-44.0); MEAN CORPUSCULAR HGB CONC 32 g/dl (31.0-36.0); MEAN CORPUSCULAR VOLUME 88 fL (80-96); MONOCYTES # (AUTO) 0.8 /CMM (0.1-1.30); MONOCYTES % (AUTO) 4.4 % (2.0-12.0); NEUTROPHILS # (AUTO) 15.9 /CMM (1.8-8.9); NEUTROPHILS % (AUTO) 91.2 % (43.0-81.0); PLATELET COUNT (AUTO) 173 /CMM (150-450); WHITE BLOOD COUNT (AUTO) 17.5 K/uL (4.3-11.0)
[2019-01-26 01:40] LABS: HEMATOCRIT 18 % (39-51); HEMOGLOBIN 5.7 g/dL (13.5-17.5)
[2019-01-26] MEDS ORDERED: ACETAMINOPHEN 650 MG/20.3 ML UDC NG ONE (03:00)
[2019-01-26] MEDS: PANTOPRAZOLE 40 MG VIAL IV SCH ×2 (04:03→16:28)
[2019-01-26 04:45] LABS: BASOPHILS % (AUTO) 0.2 % (0.0-2.0); LYMPHOCYTES # (AUTO) 0.8 /CMM (0.8-4.8); LYMPHOCYTES % (AUTO) 5.2 % (20.0-44.0); MEAN CORPUSCULAR HGB CONC 32 g/dl (31.0-36.0); MEAN CORPUSCULAR VOLUME 89 fL (80-96); MONOCYTES # (AUTO) 0.8 /CMM (0.1-1.30); MONOCYTES % (AUTO) 5.2 % (2.0-12.0); NEUTROPHILS # (AUTO) 13.1 /CMM (1.8-8.9); NEUTROPHILS % (AUTO) 89.4 % (43.0-81.0); PLATELET COUNT (AUTO) 167 /CMM (150-450); WHITE BLOOD COUNT (AUTO) 14.6 K/uL (4.3-11.0)
[2019-01-26 05:03] LABS: MAGNESIUM 1.6 mg/dL (1.8-2.4); PHOSPHORUS 4.5 mg/dL (2.5-4.9); POTASSIUM 5.2 mmol/L (3.5-5.1)
[2019-01-26] MEDS: PHENYLEPHRINE 80 MG in IV NS 0.9% 250 ML IV PRN ×2 (05:17→15:05)
[2019-01-26 05:20] LABS: CREATININE 9.5 mg/dL (0.6-1.3)
[2019-01-26 05:33] LABS: RED BLOOD CELL COUNT(AUTO) 1.86 MIL/uL (4.5-6.0)
[2019-01-26 05:34] LABS: HEMATOCRIT 17 % (39-51); HEMOGLOBIN 5.3 g/dL (13.5-17.5)
[2019-01-26 06:17] LABS: LYMPHOCYTES % (MANUAL) 1 % (16-48); MONOCYTES % (MANUAL) 3 % (0-11.0); NEUTROPHILS % (MANUAL) 96 (42-76)
[2019-01-26] MEDS ORDERED: DEXTROSE 50%-WATER 50 ML DISP.SYRIN IV PRN (06:30)
[2019-01-26] MEDS ORDERED: FEE PK DOSING 1 MIN EA MC ONE (06:47)
[2019-01-26] MEDS: INSULIN REGULAR, HUMAN 100 UNIT/ML 3 ML VIAL SQ PRN ×3 (07:11→17:53)
[2019-01-26] MEDS: Sodium Bicarbonate 150 MEQ in IV D5W 1,000 ML IV PRN (07:13)
[2019-01-26] MEDS ORDERED: PANTOPRAZOLE 40 MG TABLET.DR PO SCH (07:30)
[2019-01-26 08:23] LABS: ABG BASE EXCESS -0.9 mmol/L; ABG OXYGEN SATURATION 98.4 % (92.0-98.5); ABG PCO2 32.4 mmHg (35.0-45.0); ABG PH 7.465 (7.350-7.450); ABG PO2 157.4 mmHg (75.0-100.0); AaDO2 162.7 mmHg; COHb 0.6 % (0.5-1.5); MetHb 1.5 % (0.0-1.5); O2Hb 96.3 % (94.0-97.0); PEEP,BG 0 cm H2O; SITE, ABG Right Brachial; VT, ABG 550 mL
[2019-01-26] MEDS: MIDODRINE HCL (5MG) 5 MG TABLET PO SCH ×3 (09:43→16:22)
[2019-01-26] MEDS: MEROPENEM 500 MG in IV NS 0.9% 100 ML IV SCH ×2 (09:43→21:16)
[2019-01-26] MEDS: HYDROCORTISONE SOD SUCCINATE 100 MG/2 ML VIAL IV SCH ×3 (09:43→16:22)
[2019-01-26] MEDS: AMIODARONE HCL 200 MG TABLET PO SCH ×3 (09:43→16:22)
[2019-01-26] MEDS: Z GUARD REMEDY 2 OZ OINT TP SCH ×2 (09:44→21:20)
[2019-01-26] MEDS: HYDROGEL DRESSING 90 GM TUBE TP SCH (09:44)
[2019-01-26] MEDS: CLOTRIMAZOLE 1% 15 GM TUBE TP SCH ×2 (09:45→16:23)
[2019-01-26] MEDS ORDERED: BLOOD SUGAR DIAGNOSTIC 1 EACH STRIP IN SCH (12:00)
[2019-01-26] MEDS: ACETAMINOPHEN 650 MG/20.3 ML UDC NG PRN (12:33)
[2019-01-26] MEDS: BLOOD SUGAR DIAGNOSTIC 1 EACH STRIP IN SCH ×2 (13:38→17:46)
[2019-01-26 14:19] LABS: HEMOGLOBIN 5.3 g/dL (13.5-17.5)
[2019-01-26 15:18] LABS: BILIRUBIN,TOTAL 0.4 mg/dL (0.2-1.0)
[2019-01-26 19:24] LABS: HEMOGLOBIN 5.9 g/dL (13.5-17.5)
[2019-01-26 21:39] LABS: HEMOGLOBIN 5.8 g/dL (13.5-17.5)
[2019-01-26 21:45] LABS: CALCIUM, SERUM 7.9 mg/dL (8.5-10.1); CREATININE 5.4 mg/dL (0.6-1.3); POTASSIUM 4.4 mmol/L (3.5-5.1)
[2019-01-26] MEDS ORDERED: Magnesium 1GM/D5W 100ML PREMIX 100 ML IV ONE (23:00)
[2019-01-27] VITALS (90 sets, daily range): BP systolic 60–139; BP diastolic 29–82
[2019-01-27] MEDS: BLOOD SUGAR DIAGNOSTIC 1 EACH STRIP IN SCH ×5 (00:14→23:51)
[2019-01-27] MEDS: FLUDROCORTISONE 0.1 MG TABLET PO SCH ×6 (00:14→23:49)
[2019-01-27] MEDS: PROPOFOL 100 ML IV PRN ×9 (01:32→23:35)
[2019-01-27 04:24] LABS: BASOPHILS % (AUTO) 0.2 % (0.0-2.0); LYMPHOCYTES # (AUTO) 1.1 /CMM (0.8-4.8); LYMPHOCYTES % (AUTO) 7.3 % (20.0-44.0); MEAN CORPUSCULAR HGB CONC 34 g/dl (31.0-36.0); MEAN CORPUSCULAR VOLUME 88 fL (80-96); MONOCYTES # (AUTO) 0.5 /CMM (0.1-1.30); MONOCYTES % (AUTO) 3.4 % (2.0-12.0); NEUTROPHILS # (AUTO) 13.8 /CMM (1.8-8.9); NEUTROPHILS % (AUTO) 89.1 % (43.0-81.0); PLATELET COUNT (AUTO) 125 /CMM (150-450); RED BLOOD CELL COUNT(AUTO) 2.23 MIL/uL (4.5-6.0); WHITE BLOOD COUNT (AUTO) 15.5 K/uL (4.3-11.0)
[2019-01-27 04:40] LABS: CREATININE 5.9 mg/dL (0.6-1.3); PHOSPHORUS 4.2 mg/dL (2.5-4.9); POTASSIUM 4.5 mmol/L (3.5-5.1)
[2019-01-27] MEDS: Sodium Bicarbonate 150 MEQ in IV D5W 1,000 ML IV PRN (04:46)
[2019-01-27 05:04] LABS: HEMATOCRIT 20 % (39-51); HEMOGLOBIN 6.5 g/dL (13.5-17.5)
[2019-01-27] MEDS: PANTOPRAZOLE 40 MG VIAL IV SCH (05:25)
[2019-01-27] MEDS ORDERED: ACETAMINOPHEN 650 MG/SUPP.RECT RC PRN (07:30)
[2019-01-27 08:31] LABS: LYMPHOCYTES % (MANUAL) 10 % (16-48); MONOCYTES % (MANUAL) 3 % (0-11.0); NEUTROPHILS % (MANUAL) 87 (42-76)
[2019-01-27] MEDS: AMIODARONE HCL 200 MG TABLET PO SCH ×3 (09:00→16:14)
[2019-01-27] MEDS: MIDODRINE HCL (5MG) 5 MG TABLET PO SCH ×3 (09:00→17:44)
[2019-01-27] MEDS: HYDROGEL DRESSING 90 GM TUBE TP SCH (09:25)
[2019-01-27] MEDS: CLOTRIMAZOLE 1% 15 GM TUBE TP SCH ×2 (09:27→16:14)
[2019-01-27] MEDS: Z GUARD REMEDY 2 OZ OINT TP SCH ×2 (09:27→22:28)
[2019-01-27] MEDS: HYDROCORTISONE SOD SUCCINATE 100 MG/2 ML VIAL IV SCH ×3 (09:30→16:13)
[2019-01-27] MEDS: MEROPENEM 500 MG in IV NS 0.9% 100 ML IV SCH ×2 (09:30→21:03)
[2019-01-27] MEDS: IV D5/ 0.9% NACL 1,000 ML IV PRN ×2 (09:51→19:26)
[2019-01-27] MEDS ORDERED: EPOETIN ALFA (10,000 UNIT) 10,000 UNIT/ML VIAL IV ONE (10:00)
[2019-01-27] MEDS ORDERED: EPOETIN ALFA (10,000 UNIT) 10,000 UNIT/ML VIAL SQ ONE (10:00)
[2019-01-27 10:27] LABS: ABG BASE EXCESS 4.5 mmol/L; ABG OXYGEN SATURATION 92.6 % (92.0-98.5); ABG PCO2 32.9 mmHg (35.0-45.0); ABG PH 7.537 (7.350-7.450); AaDO2 184.4 mmHg; COHb 0.4 % (0.5-1.5); MetHb 0.9 % (0.0-1.5); O2Hb 91.4 % (94.0-97.0); PEEP,BG 0 cm H2O; SITE, ABG Right Radial; VT, ABG 500 mL
[2019-01-27] MEDS: PHENYLEPHRINE 80 MG in IV NS 0.9% 250 ML IV PRN (10:32)
[2019-01-27 10:35] LABS: HEMOGLOBIN 7.3 g/dL (13.5-17.5)
[2019-01-27] MEDS: INSULIN REGULAR, HUMAN 100 UNIT/ML 3 ML VIAL SQ PRN ×3 (12:16→23:52)
[2019-01-27] MEDS: ACETAMINOPHEN 650 MG/20.3 ML UDC NG PRN (13:07)
[2019-01-27] MEDS: VANCOMYCIN 500 MG in IV D5W 100 ML IV PRN (13:07)
[2019-01-28] VITALS (85 sets, daily range): BP systolic 95–152; BP diastolic 47–92
[2019-01-28] MEDS: PROPOFOL 100 ML IV PRN ×2 (01:59→05:47)
[2019-01-28 04:22] LABS: BASOPHILS % (AUTO) 0.3 % (0.0-2.0); HEMATOCRIT 22 % (39-51); HEMOGLOBIN 7.2 g/dL (13.5-17.5); LYMPHOCYTES # (AUTO) 0.8 /CMM (0.8-4.8); LYMPHOCYTES % (AUTO) 7.7 % (20.0-44.0); MEAN CORPUSCULAR HGB CONC 33 g/dl (31.0-36.0); MEAN CORPUSCULAR VOLUME 88 fL (80-96); MONOCYTES # (AUTO) 0.4 /CMM (0.1-1.30); MONOCYTES % (AUTO) 3.7 % (2.0-12.0); NEUTROPHILS # (AUTO) 9.4 /CMM (1.8-8.9); NEUTROPHILS % (AUTO) 88.3 % (43.0-81.0); PLATELET COUNT (AUTO) 93 /CMM (150-450); RED BLOOD CELL COUNT(AUTO) 2.47 MIL/uL (4.5-6.0); WHITE BLOOD COUNT (AUTO) 10.7 K/uL (4.3-11.0)
[2019-01-28 04:33] LABS: CALCIUM, SERUM 7.4 mg/dL (8.5-10.1); CREATININE 5.6 mg/dL (0.6-1.3); PHOSPHORUS 5.9 mg/dL (2.5-4.9); POTASSIUM 4.3 mmol/L (3.5-5.1)
[2019-01-28] MEDS: IV D5/ 0.9% NACL 1,000 ML IV PRN ×2 (05:12→15:55)
[2019-01-28 05:17] LABS: LYMPHOCYTES % (MANUAL) 7 % (16-48)
[2019-01-28 05:18] LABS: MONOCYTES % (MANUAL) 2 % (0-11.0); NEUTROPHILS % (MANUAL) 91 (42-76)
[2019-01-28] MEDS: FLUDROCORTISONE 0.1 MG TABLET PO SCH ×3 (05:46→17:38)
[2019-01-28] MEDS: BLOOD SUGAR DIAGNOSTIC 1 EACH STRIP IN SCH ×3 (06:09→17:33)
[2019-01-28] MEDS: INSULIN REGULAR, HUMAN 100 UNIT/ML 3 ML VIAL SQ PRN ×3 (06:14→17:34)
[2019-01-28] MEDS ORDERED: DC PROPOFOL WHEN EXTUBATED XX PRN ×2 (08:00→10:00)
[2019-01-28] MEDS: HYDROCORTISONE SOD SUCCINATE 100 MG/2 ML VIAL IV SCH ×3 (08:03→17:33)
[2019-01-28 08:12] LABS: ABG BASE EXCESS -0.9 mmol/L; ABG OXYGEN SATURATION 97.6 % (92.0-98.5); ABG PCO2 35.9 mmHg (35.0-45.0); ABG PH 7.429 (7.350-7.450); ABG PO2 121.5 mmHg (75.0-100.0); AaDO2 122.4 mmHg; COHb 0.7 % (0.5-1.5); MetHb 0.6 % (0.0-1.5); O2Hb 96.3 % (94.0-97.0); SITE, ABG Right Radial
[2019-01-28] MEDS: HYDROGEL DRESSING 90 GM TUBE TP SCH (08:12)
[2019-01-28] MEDS: MEROPENEM 500 MG in IV NS 0.9% 100 ML IV SCH ×2 (08:12→21:22)
[2019-01-28] MEDS: MIDODRINE HCL (5MG) 5 MG TABLET PO SCH ×3 (08:13→17:00)
[2019-01-28] MEDS: Z GUARD REMEDY 2 OZ OINT TP SCH ×2 (08:13→21:00)
[2019-01-28] MEDS: AMIODARONE HCL 200 MG TABLET PO SCH ×3 (08:13→17:00)
[2019-01-28] MEDS: CLOTRIMAZOLE 1% 15 GM TUBE TP SCH ×2 (08:15→17:38)
[2019-01-28 09:52] LABS: ABG BASE EXCESS -0.6 mmol/L; ABG OXYGEN SATURATION 96.9 % (92.0-98.5); ABG PCO2 36.1 mmHg (35.0-45.0); ABG PH 7.433 (7.350-7.450); ABG PO2 110.2 mmHg (75.0-100.0); AaDO2 133.5 mmHg; COHb 0.4 % (0.5-1.5); MetHb 1.3 % (0.0-1.5); O2Hb 95.3 % (94.0-97.0); SITE, ABG Right Radial
[2019-01-29] VITALS (52 sets, daily range): BP systolic 104–151; BP diastolic 50–91
[2019-01-29] MEDS: IV D5/ 0.9% NACL 1,000 ML IV PRN (01:23)
[2019-01-29] MEDS: BLOOD SUGAR DIAGNOSTIC 1 EACH STRIP IN SCH ×6 (02:22→23:25)
[2019-01-29 04:37] LABS: BASOPHILS % (AUTO) 0.1 % (0.0-2.0); HEMATOCRIT 21 % (39-51); LYMPHOCYTES # (AUTO) 0.4 /CMM (0.8-4.8); LYMPHOCYTES % (AUTO) 10.2 % (20.0-44.0); MEAN CORPUSCULAR HGB CONC 33 g/dl (31.0-36.0); MEAN CORPUSCULAR VOLUME 89 fL (80-96); MONOCYTES # (AUTO) 0.1 /CMM (0.1-1.30); MONOCYTES % (AUTO) 2.9 % (2.0-12.0); NEUTROPHILS # (AUTO) 3.3 /CMM (1.8-8.9); NEUTROPHILS % (AUTO) 86.8 % (43.0-81.0); PLATELET COUNT (AUTO) 66 /CMM (150-450); WHITE BLOOD COUNT (AUTO) 3.8 K/uL (4.3-11.0)
[2019-01-29 04:51] LABS: CALCIUM, SERUM 7.4 mg/dL (8.5-10.1); CREATININE 6.3 mg/dL (0.6-1.3); PHOSPHORUS 7.4 mg/dL (2.5-4.9); POTASSIUM 4.1 mmol/L (3.5-5.1)
[2019-01-29] MEDS: FLUDROCORTISONE 0.1 MG TABLET PO SCH ×2 (05:18)
[2019-01-29] MEDS: INSULIN REGULAR, HUMAN 100 UNIT/ML 3 ML VIAL SQ PRN ×4 (06:03→23:41)
[2019-01-29 06:05] LABS: LYMPHOCYTES % (MANUAL) 7 % (16-48); MONOCYTES % (MANUAL) 2 % (0-11.0); NEUTROPHILS % (MANUAL) 91 (42-76)
[2019-01-29] MEDS: AMIODARONE HCL 200 MG TABLET PO SCH ×3 (08:41→16:56)
[2019-01-29] MEDS: HYDROCORTISONE SOD SUCCINATE 100 MG/2 ML VIAL IV SCH ×3 (08:44→16:55)
[2019-01-29] MEDS: Z GUARD REMEDY 2 OZ OINT TP SCH ×2 (08:44→20:02)
[2019-01-29] MEDS: HYDROGEL DRESSING 90 GM TUBE TP SCH (08:44)
[2019-01-29] MEDS: MIDODRINE HCL (5MG) 5 MG TABLET PO SCH ×3 (08:47→16:56)
[2019-01-29] MEDS: CLOTRIMAZOLE 1% 15 GM TUBE TP SCH ×2 (08:47→16:57)
[2019-01-29] MEDS: MEROPENEM 500 MG in IV NS 0.9% 100 ML IV SCH ×2 (08:49→20:02)
[2019-01-29] MEDS ORDERED: DEXTROSE 50%-WATER 50 ML DISP.SYRIN IV PRN (17:00)
[2019-01-29] MEDS: FLUCONAZOLE (100 MG) 100 MG TABLET PO SCH (20:01)
[2019-01-29] MEDS: MORPHINE SULFATE INJ 2 MG/ML DISP.SYRIN IV PRN (20:13)
[2019-01-30] VITALS (7 sets, daily range): BP systolic 125–147; BP diastolic 65–82
[2019-01-30] MEDS: BLOOD SUGAR DIAGNOSTIC 1 EACH STRIP IN SCH ×4 (08:01→21:47)
[2019-01-30] MEDS: INSULIN REGULAR, HUMAN 100 UNIT/ML 3 ML VIAL SQ PRN ×4 (08:07→21:50)
[2019-01-30] MEDS: HYDROCORTISONE SOD SUCCINATE 100 MG/2 ML VIAL IV SCH ×3 (09:48→17:15)
[2019-01-30] MEDS: AMIODARONE HCL 200 MG TABLET PO SCH ×3 (09:51→17:14)
[2019-01-30] MEDS: MIDODRINE HCL (5MG) 5 MG TABLET PO SCH ×3 (09:52→17:15)
[2019-01-30] MEDS: FLUCONAZOLE (100 MG) 100 MG TABLET PO SCH (09:53)
[2019-01-30] MEDS: Z GUARD REMEDY 2 OZ OINT TP SCH ×2 (09:59→20:27)
[2019-01-30] MEDS: CLOTRIMAZOLE 1% 15 GM TUBE TP SCH ×2 (09:59→17:21)
[2019-01-30] MEDS: HYDROGEL DRESSING 90 GM TUBE TP SCH (09:59)
[2019-01-30] MEDS: MEROPENEM 500 MG in IV NS 0.9% 100 ML IV SCH ×2 (10:00→20:20)
[2019-01-30] MEDS: VANCOMYCIN 500 MG in IV D5W 100 ML IV PRN (10:43)
[2019-01-30 14:34] LABS: FREE PSA 0.07 ng/mL (0.00-45); PROSTATE SPECIFIC ANTIGEN SCR 1.58 ng/mL (0.00-4.00)
[2019-01-30] MEDS: MORPHINE SULFATE INJ 2 MG/ML DISP.SYRIN IV PRN (20:21)
[2019-01-31 00:01] VITALS: BP 150/93
[2019-01-31 04:17] VITALS: BP 149/79
[2019-01-31] MEDS: MORPHINE SULFATE INJ 2 MG/ML DISP.SYRIN IV PRN ×3 (04:35→19:20)
[2019-01-31 07:14] LABS: BASOPHILS % (AUTO) 0.4 % (0.0-2.0); EOSINOPHILS % (AUTO) 1.9 % (0.0-6.0); HEMATOCRIT 25 % (39-51); LYMPHOCYTES # (AUTO) 0.9 /CMM (0.8-4.8); LYMPHOCYTES % (AUTO) 12.3 % (20.0-44.0); MEAN CORPUSCULAR HGB CONC 32 g/dl (31.0-36.0); MEAN CORPUSCULAR VOLUME 88 fL (80-96); MONOCYTES # (AUTO) 0.3 /CMM (0.1-1.30); MONOCYTES % (AUTO) 4.3 % (2.0-12.0); NEUTROPHILS % (AUTO) 81.1 % (43.0-81.0); PLATELET COUNT (AUTO) 138 /CMM (150-450); WHITE BLOOD COUNT (AUTO) 7.4 K/uL (4.3-11.0)
[2019-01-31 07:15] LABS: CALCIUM, SERUM 7.7 mg/dL (8.5-10.1); CREATININE 6.3 mg/dL (0.6-1.3); MAGNESIUM 1.7 mg/dL (1.8-2.4); PHOSPHORUS 5.8 mg/dL (2.5-4.9); POTASSIUM 4.1 mmol/L (3.5-5.1)
[2019-01-31 08:00] VITALS: BP 132/73
[2019-01-31] MEDS: BLOOD SUGAR DIAGNOSTIC 1 EACH STRIP IN SCH ×4 (08:40→21:48)
[2019-01-31] MEDS: HYDROCORTISONE SOD SUCCINATE 100 MG/2 ML VIAL IV SCH ×3 (08:46→16:17)
[2019-01-31] MEDS: MIDODRINE HCL (5MG) 5 MG TABLET PO SCH ×3 (09:00→16:19)
[2019-01-31] MEDS: AMIODARONE HCL 200 MG TABLET PO SCH ×3 (09:00→16:18)
[2019-01-31] MEDS: FLUCONAZOLE (100 MG) 100 MG TABLET PO SCH (10:03)
[2019-01-31] MEDS: MEROPENEM 500 MG in IV NS 0.9% 100 ML IV SCH (10:08)
[2019-01-31] MEDS: HYDROGEL DRESSING 90 GM TUBE TP SCH (10:09)
[2019-01-31] MEDS: CLOTRIMAZOLE 1% 15 GM TUBE TP SCH ×2 (10:09→16:50)
[2019-01-31] MEDS: Z GUARD REMEDY 2 OZ OINT TP SCH ×2 (10:10→21:42)
[2019-01-31] MEDS ORDERED: Magnesium 1GM/D5W 100ML PREMIX 100 ML IV SCH ×2 (10:59→16:00)
[2019-01-31 12:00] VITALS: BP 119/65
[2019-01-31] MEDS: INSULIN REGULAR, HUMAN 100 UNIT/ML 3 ML VIAL SQ PRN ×3 (13:40→21:51)
[2019-01-31] MEDS ORDERED: Magnesium 1GM/D5W 100ML PREMIX PIGGYBACK IV ONE (15:30)
[2019-01-31 16:00] VITALS: BP 120/68
[2019-01-31 20:00] VITALS: BP 131/78
[2019-02-01] MEDS: MORPHINE SULFATE INJ 2 MG/ML DISP.SYRIN IV PRN ×2 (02:11→19:46)
[2019-02-01 04:00] VITALS: BP 131/74
[2019-02-01 07:15] LABS: CALCIUM, SERUM 7.8 mg/dL (8.5-10.1); CREATININE 5.5 mg/dL (0.6-1.3); MAGNESIUM 2.2 mg/dL (1.8-2.4); POTASSIUM 3.7 mmol/L (3.5-5.1)
[2019-02-01 07:25] LABS: BASOPHILS % (AUTO) 0.2 % (0.0-2.0); EOSINOPHILS % (AUTO) 2.4 % (0.0-6.0); HEMATOCRIT 25 % (39-51); HEMOGLOBIN 7.9 g/dL (13.5-17.5); LYMPHOCYTES % (AUTO) 16.4 % (20.0-44.0); MEAN CORPUSCULAR HGB CONC 32 g/dl (31.0-36.0); MEAN CORPUSCULAR VOLUME 88 fL (80-96); MONOCYTES # (AUTO) 0.3 /CMM (0.1-1.30); MONOCYTES % (AUTO) 5.5 % (2.0-12.0); NEUTROPHILS # (AUTO) 4.4 /CMM (1.8-8.9); NEUTROPHILS % (AUTO) 75.5 % (43.0-81.0); PLATELET COUNT (AUTO) 156 /CMM (150-450); RED BLOOD CELL COUNT(AUTO) 2.78 MIL/uL (4.5-6.0); WHITE BLOOD COUNT (AUTO) 5.9 K/uL (4.3-11.0)
[2019-02-01] MEDS: BLOOD SUGAR DIAGNOSTIC 1 EACH STRIP IN SCH ×4 (07:51→21:53)
[2019-02-01 08:00] VITALS: BP 129/72
[2019-02-01] MEDS: HYDROCORTISONE SOD SUCCINATE 100 MG/2 ML VIAL IV SCH ×3 (08:55→17:16)
[2019-02-01] MEDS: AMIODARONE HCL 200 MG TABLET PO SCH ×3 (08:55→17:16)
[2019-02-01] MEDS: MIDODRINE HCL (5MG) 5 MG TABLET PO SCH ×3 (08:56→17:16)
[2019-02-01] MEDS: FLUCONAZOLE (100 MG) 100 MG TABLET PO SCH (08:56)
[2019-02-01] MEDS ORDERED: EPOETIN ALFA (10,000 UNIT) 10,000 UNIT/ML VIAL IV ONE (09:00)
[2019-02-01] MEDS: CLOTRIMAZOLE 1% 15 GM TUBE TP SCH ×2 (09:04→17:17)
[2019-02-01] MEDS: HYDROGEL DRESSING 90 GM TUBE TP SCH (09:04)
[2019-02-01] MEDS: Z GUARD REMEDY 2 OZ OINT TP SCH ×2 (09:04→21:14)
[2019-02-01] MEDS ORDERED: FENTANYL PF 250MCG/5ML AMPUL IV ONE (14:30)
[2019-02-01] MEDS ORDERED: NALOXONE PREFILLED SYRINGE 2 MG/2 ML SYRINGE IV ONE (14:30)
[2019-02-01] MEDS ORDERED: MIDAZOLAM HCL 5MG/ML VIAL 25 MG/5 ML VIAL IV ONE (14:30)
[2019-02-01 16:00] VITALS: BP 113/65
[2019-02-01] MEDS ORDERED: NA PHOS,M-B/NA PHOS,DI-BA 1 EA ENEMA RC PRN (17:00)
[2019-02-01] MEDS: INSULIN REGULAR, HUMAN 100 UNIT/ML 3 ML VIAL SQ PRN ×2 (17:40→21:57)
[2019-02-01 20:00] VITALS: BP 127/83
[2019-02-02 04:00] VITALS: BP 135/83
[2019-02-02 07:02] LABS: CREATININE 6.7 mg/dL (0.6-1.3); MAGNESIUM 2.1 mg/dL (1.8-2.4)
[2019-02-02 07:12] LABS: BASOPHILS % (AUTO) 0.5 % (0.0-2.0); EOSINOPHILS % (AUTO) 2.8 % (0.0-6.0); HEMATOCRIT 25 % (39-51); HEMOGLOBIN 8.1 g/dL (13.5-17.5); LYMPHOCYTES # (AUTO) 0.8 /CMM (0.8-4.8); MEAN CORPUSCULAR HGB CONC 32 g/dl (31.0-36.0); MEAN CORPUSCULAR VOLUME 89 fL (80-96); MONOCYTES # (AUTO) 0.4 /CMM (0.1-1.30); NEUTROPHILS # (AUTO) 3.3 /CMM (1.8-8.9); NEUTROPHILS % (AUTO) 70.7 % (43.0-81.0); PLATELET COUNT (AUTO) 193 /CMM (150-450); RED BLOOD CELL COUNT(AUTO) 2.84 MIL/uL (4.5-6.0); WHITE BLOOD COUNT (AUTO) 4.6 K/uL (4.3-11.0)
[2019-02-02] MEDS: BLOOD SUGAR DIAGNOSTIC 1 EACH STRIP IN SCH ×4 (07:23→21:38)
[2019-02-02 08:00] VITALS: BP 152/85
[2019-02-02 08:06] LABS: AFP, TUMOR MARKER 1.2 ng/mL (0.0-8.3)
[2019-02-02 08:06] LABS: IMMUNOGLOBULIN A, SERUM 36 mg/dL (90-386); IMMUNOGLOBULIN G, SERUM 431 mg/dL (700-1600); IMMUNOGLOBULIN M, SERUM 21 mg/dL (20-172)
[2019-02-02] MEDS: FLUCONAZOLE (100 MG) 100 MG TABLET PO SCH (08:16)
[2019-02-02] MEDS: MIDODRINE HCL (5MG) 5 MG TABLET PO SCH ×3 (08:17→16:38)
[2019-02-02] MEDS: AMIODARONE HCL 200 MG TABLET PO SCH ×3 (08:18→16:37)
[2019-02-02] MEDS: HYDROCORTISONE SOD SUCCINATE 100 MG/2 ML VIAL IV SCH ×3 (08:19→16:38)
[2019-02-02] MEDS: INSULIN REGULAR, HUMAN 100 UNIT/ML 3 ML VIAL SQ PRN ×4 (08:24→21:41)
[2019-02-02] MEDS: CLOTRIMAZOLE 1% 15 GM TUBE TP SCH ×2 (08:27→16:38)
[2019-02-02] MEDS: Z GUARD REMEDY 2 OZ OINT TP SCH ×2 (08:27→21:38)
[2019-02-02] MEDS: HYDROGEL DRESSING 90 GM TUBE TP SCH (08:27)
[2019-02-02] MEDS ORDERED: EPOETIN ALFA (10,000 UNIT) 10,000 UNIT/ML VIAL IV ONE (09:00)
[2019-02-02 10:07] LABS: *SPE A/G RATIO 1.2 (0.7-1.7); *SPE ALBUMIN 2.2 g/dL (2.9-4.4); *SPE ALPHA-1-GLOBULIN 0.3 g/dL (0.0-0.4); *SPE ALPHA-2-GLOBULIN 0.7 g/dL (0.4-1.0); *SPE BETA GLOBULIN 0.5 g/dL (0.7-1.3); *SPE GLOBULIN, TOTAL 1.8 g/dL (2.2-3.9); *SPE M-SPIKE Not Observed g/dL (Not Observed); *SPEGAMMA GLOBULIN 0.3 g/dL (0.4-1.8)
[2019-02-02] MEDS ORDERED: NEPRO VAN 237 ML CAN PO PRN (13:30)
[2019-02-02 16:00] VITALS: BP 152/85
[2019-02-02] MEDS: MORPHINE SULFATE INJ 2 MG/ML DISP.SYRIN IV PRN (16:37)
[2019-02-02] MEDS ORDERED: FEE PK DOSING 1 MIN EA MC ONE (19:27)
[2019-02-02] MEDS ORDERED: VANCOMYCIN 500 MG in IV D5W 100 ML IV PRN (19:30)
[2019-02-02 20:00] VITALS: BP_SYST 132; BP_SYST 150; BP_DIAS 66; BP_DIAS 84
[2019-02-02] MEDS ORDERED: MEROPENEM 500 MG in IV NS 0.9% 50 ML IV ONE (20:00)
[2019-02-02] MEDS ORDERED: VANCOMYCIN 1 GM in IV D5W 250 ML IV ONE (21:00)
[2019-02-02 22:00] VITALS: BP 132/84
[2019-02-03] MEDS: MORPHINE SULFATE INJ 2 MG/ML DISP.SYRIN IV PRN ×2 (01:43→20:19)
[2019-02-03 04:00] VITALS: BP 126/70
[2019-02-03 06:19] LABS: BASOPHILS % (AUTO) 0.8 % (0.0-2.0); EOSINOPHILS % (AUTO) 2.4 % (0.0-6.0); HEMATOCRIT 24 % (39-51); HEMOGLOBIN 7.8 g/dL (13.5-17.5); LYMPHOCYTES # (AUTO) 0.9 /CMM (0.8-4.8); MEAN CORPUSCULAR HGB CONC 33 g/dl (31.0-36.0); MEAN CORPUSCULAR VOLUME 87 fL (80-96); MONOCYTES # (AUTO) 0.5 /CMM (0.1-1.30); MONOCYTES % (AUTO) 12.5 % (2.0-12.0); NEUTROPHILS # (AUTO) 2.6 /CMM (1.8-8.9); NEUTROPHILS % (AUTO) 63.3 % (43.0-81.0); PLATELET COUNT (AUTO) 211 /CMM (150-450); RED BLOOD CELL COUNT(AUTO) 2.74 MIL/uL (4.5-6.0); WHITE BLOOD COUNT (AUTO) 4.1 K/uL (4.3-11.0)
[2019-02-03] MEDS: BLOOD SUGAR DIAGNOSTIC 1 EACH STRIP IN SCH ×4 (06:40→21:32)
[2019-02-03 06:49] LABS: CREATININE 5.4 mg/dL (0.6-1.3); MAGNESIUM 1.8 mg/dL (1.8-2.4); PHOSPHORUS 4.2 mg/dL (2.5-4.9); POTASSIUM 3.8 mmol/L (3.5-5.1)
[2019-02-03 08:00] VITALS: BP 141/79
[2019-02-03] MEDS: HYDROCORTISONE SOD SUCCINATE 100 MG/2 ML VIAL IV SCH ×2 (08:23→17:01)
[2019-02-03] MEDS: Z GUARD REMEDY 2 OZ OINT TP SCH ×2 (08:24→21:12)
[2019-02-03] MEDS: CLOTRIMAZOLE 1% 15 GM TUBE TP SCH ×2 (08:25→16:27)
[2019-02-03] MEDS: HYDROGEL DRESSING 90 GM TUBE TP SCH (08:25)
[2019-02-03] MEDS: AMIODARONE HCL 200 MG TABLET PO SCH ×3 (08:26→17:01)
[2019-02-03] MEDS: FLUCONAZOLE (100 MG) 100 MG TABLET PO SCH (08:28)
[2019-02-03] MEDS: MIDODRINE HCL (5MG) 5 MG TABLET PO SCH ×3 (08:28→16:27)
[2019-02-03] MEDS ORDERED: MEROPENEM 500 MG in IV NS 0.9% 100 ML IV SCH (09:00)
[2019-02-03] MEDS ORDERED: MEROPENEM 500 MG in IV NS 0.9% 50 ML IV SCH ×2 (09:00→21:00)
[2019-02-03] MEDS: INSULIN REGULAR, HUMAN 100 UNIT/ML 3 ML VIAL SQ PRN ×3 (12:24→21:33)
[2019-02-03 16:00] VITALS: BP 138/86
[2019-02-03 20:00] VITALS: BP 131/74
[2019-02-04 04:00] VITALS: BP 149/96
[2019-02-04 06:28] LABS: BASOPHILS % (AUTO) 0.8 % (0.0-2.0); EOSINOPHILS % (AUTO) 1.7 % (0.0-6.0); HEMATOCRIT 25 % (39-51); HEMOGLOBIN 8.2 g/dL (13.5-17.5); LYMPHOCYTES # (AUTO) 0.7 /CMM (0.8-4.8); LYMPHOCYTES % (AUTO) 21.4 % (20.0-44.0); MEAN CORPUSCULAR HGB CONC 33 g/dl (31.0-36.0); MEAN CORPUSCULAR VOLUME 87 fL (80-96); MONOCYTES # (AUTO) 0.4 /CMM (0.1-1.30); MONOCYTES % (AUTO) 10.4 % (2.0-12.0); NEUTROPHILS # (AUTO) 2.3 /CMM (1.8-8.9); NEUTROPHILS % (AUTO) 65.7 % (43.0-81.0); PLATELET COUNT (AUTO) 238 /CMM (150-450); RED BLOOD CELL COUNT(AUTO) 2.87 MIL/uL (4.5-6.0); WHITE BLOOD COUNT (AUTO) 3.5 K/uL (4.3-11.0)
[2019-02-04 07:01] LABS: CALCIUM, SERUM 8.1 mg/dL (8.5-10.1); CREATININE 6.8 mg/dL (0.6-1.3); PHOSPHORUS 4.7 mg/dL (2.5-4.9); POTASSIUM 4.5 mmol/L (3.5-5.1)
[2019-02-04] MEDS: BLOOD SUGAR DIAGNOSTIC 1 EACH STRIP IN SCH ×4 (07:40→22:00)
[2019-02-04] MEDS: INSULIN REGULAR, HUMAN 100 UNIT/ML 3 ML VIAL SQ PRN ×4 (07:44→22:08)
[2019-02-04 08:00] VITALS: BP 141/82
[2019-02-04] MEDS: AMIODARONE HCL 200 MG TABLET PO SCH ×2 (08:24→17:18)
[2019-02-04] MEDS: FLUCONAZOLE (100 MG) 100 MG TABLET PO SCH (08:25)
[2019-02-04] MEDS: HYDROCORTISONE SOD SUCCINATE 100 MG/2 ML VIAL IV SCH ×2 (08:25→17:16)
[2019-02-04] MEDS: CLOTRIMAZOLE 1% 15 GM TUBE TP SCH ×2 (09:00→17:19)
[2019-02-04] MEDS: Z GUARD REMEDY 2 OZ OINT TP SCH ×2 (09:00→21:20)
[2019-02-04] MEDS: HYDROGEL DRESSING 90 GM TUBE TP SCH (09:00)
[2019-02-04] MEDS: MORPHINE SULFATE INJ 2 MG/ML DISP.SYRIN IV PRN (10:07)
[2019-02-04] MEDS: MIDODRINE HCL (5MG) 5 MG TABLET PO SCH ×3 (10:08→17:18)
[2019-02-04 16:00] VITALS: BP_SYST 120; BP_SYST 130; BP_DIAS 72
[2019-02-05] MEDS: MORPHINE SULFATE INJ 2 MG/ML DISP.SYRIN IV PRN (00:10)
[2019-02-05 06:37] LABS: BASOPHILS % (AUTO) 0.9 % (0.0-2.0); EOSINOPHILS % (AUTO) 2.3 % (0.0-6.0); HEMATOCRIT 24 % (39-51); HEMOGLOBIN 7.8 g/dL (13.5-17.5); LYMPHOCYTES # (AUTO) 0.9 /CMM (0.8-4.8); LYMPHOCYTES % (AUTO) 21.1 % (20.0-44.0); MEAN CORPUSCULAR HGB CONC 33 g/dl (31.0-36.0); MEAN CORPUSCULAR VOLUME 87 fL (80-96); MONOCYTES # (AUTO) 0.5 /CMM (0.1-1.30); MONOCYTES % (AUTO) 10.6 % (2.0-12.0); NEUTROPHILS # (AUTO) 2.9 /CMM (1.8-8.9); NEUTROPHILS % (AUTO) 65.1 % (43.0-81.0); PLATELET COUNT (AUTO) 246 /CMM (150-450); RED BLOOD CELL COUNT(AUTO) 2.75 MIL/uL (4.5-6.0); WHITE BLOOD COUNT (AUTO) 4.4 K/uL (4.3-11.0)
[2019-02-05 07:07] LABS: CREATININE 6.1 mg/dL (0.6-1.3); MAGNESIUM 1.8 mg/dL (1.8-2.4); PHOSPHORUS 3.5 mg/dL (2.5-4.9); POTASSIUM 4.4 mmol/L (3.5-5.1)
[2019-02-05 08:00] VITALS: BP 131/72
[2019-02-05 08:13] LABS: BAND % (MANUAL) 3 % (0.0-5.0); LYMPHOCYTES % (MANUAL) 21 % (16-48); MONOCYTES % (MANUAL) 6 % (0-11.0); NEUTROPHILS % (MANUAL) 70 (42-76)
[2019-02-05] MEDS: BLOOD SUGAR DIAGNOSTIC 1 EACH STRIP IN SCH ×4 (08:32→21:49)
[2019-02-05] MEDS: HYDROCORTISONE SOD SUCCINATE 100 MG/2 ML VIAL IV SCH ×2 (08:36→17:28)
[2019-02-05] MEDS: INSULIN REGULAR, HUMAN 100 UNIT/ML 3 ML VIAL SQ PRN ×4 (08:40→21:49)
[2019-02-05] MEDS: FLUCONAZOLE (100 MG) 100 MG TABLET PO SCH (08:43)
[2019-02-05] MEDS: MIDODRINE HCL (5MG) 5 MG TABLET PO SCH ×3 (08:47→17:31)
[2019-02-05] MEDS: CLOTRIMAZOLE 1% 15 GM TUBE TP SCH ×2 (08:48→17:32)
[2019-02-05] MEDS: AMIODARONE HCL 200 MG TABLET PO SCH ×2 (08:48→17:31)
[2019-02-05] MEDS: Z GUARD REMEDY 2 OZ OINT TP SCH ×2 (08:49→21:49)
[2019-02-05] MEDS: HYDROGEL DRESSING 90 GM TUBE TP SCH (08:50)
[2019-02-05 12:00] VITALS: BP 131/82
[2019-02-05 20:00] VITALS: BP 179/90
[2019-02-05 22:52] VITALS: BP 165/88
[2019-02-06] MEDS: MORPHINE SULFATE INJ 2 MG/ML DISP.SYRIN IV PRN (00:57)
[2019-02-06 05:02] VITALS: BP 139/86
[2019-02-06 07:02] LABS: BASOPHILS # (AUTO) 0.1 /CMM (0.0-0.2); BASOPHILS % (AUTO) 1.4 % (0.0-2.0); EOSINOPHILS % (AUTO) 1.7 % (0.0-6.0); HEMATOCRIT 25 % (39-51); HEMOGLOBIN 8.2 g/dL (13.5-17.5); LYMPHOCYTES # (AUTO) 1.1 /CMM (0.8-4.8); LYMPHOCYTES % (AUTO) 21.1 % (20.0-44.0); MEAN CORPUSCULAR HGB CONC 33 g/dl (31.0-36.0); MEAN CORPUSCULAR VOLUME 87 fL (80-96); MONOCYTES # (AUTO) 0.4 /CMM (0.1-1.30); MONOCYTES % (AUTO) 8.8 % (2.0-12.0); NEUTROPHILS # (AUTO) 3.4 /CMM (1.8-8.9); PLATELET COUNT (AUTO) 277 /CMM (150-450); RED BLOOD CELL COUNT(AUTO) 2.83 MIL/uL (4.5-6.0)
[2019-02-06 07:44] LABS: CALCIUM, SERUM 8.1 mg/dL (8.5-10.1); CREATININE 7.2 mg/dL (0.6-1.3); MAGNESIUM 1.7 mg/dL (1.8-2.4); POTASSIUM 4.8 mmol/L (3.5-5.1)
[2019-02-06 07:51] LABS: BAND % (MANUAL) 11 % (0.0-5.0); EOSINOPHILS % (MANUAL) 2 % (0-4); LYMPHOCYTES % (MANUAL) 22 % (16-48); MONOCYTES % (MANUAL) 7 % (0-11.0); NEUTROPHILS % (MANUAL) 58 (42-76)
[2019-02-06 08:00] VITALS: BP 154/91
[2019-02-06] MEDS: BLOOD SUGAR DIAGNOSTIC 1 EACH STRIP IN SCH ×4 (08:16→21:47)
[2019-02-06] MEDS: INSULIN REGULAR, HUMAN 100 UNIT/ML 3 ML VIAL SQ PRN ×4 (08:26→21:49)
[2019-02-06] MEDS: MIDODRINE HCL (5MG) 5 MG TABLET PO SCH ×3 (08:53→16:19)
[2019-02-06] MEDS: FLUCONAZOLE (100 MG) 100 MG TABLET PO SCH (08:58)
[2019-02-06] MEDS: AMIODARONE HCL 200 MG TABLET PO SCH ×2 (08:58→16:13)
[2019-02-06] MEDS: HYDROCORTISONE SOD SUCCINATE 100 MG/2 ML VIAL IV SCH ×2 (08:59→16:13)
[2019-02-06] MEDS: HYDROGEL DRESSING 90 GM TUBE TP SCH (09:00)
[2019-02-06] MEDS: Z GUARD REMEDY 2 OZ OINT TP SCH ×2 (10:33→20:03)
[2019-02-06] MEDS: CLOTRIMAZOLE 1% 15 GM TUBE TP SCH ×2 (10:35→16:19)
[2019-02-06 12:00] VITALS: BP_SYST 138; BP_SYST 75; BP_DIAS 75; BP_DIAS 86
[2019-02-06] MEDS: Magnesium 1GM/D5W 100ML PREMIX 100 ML IV SCH ×2 (14:36→16:12)
[2019-02-06 16:00] VITALS: BP_SYST 117; BP_SYST 152; BP_DIAS 76; BP_DIAS 83
[2019-02-06 20:00] VITALS: BP 139/78
[2019-02-07] MEDS: MORPHINE SULFATE INJ 2 MG/ML DISP.SYRIN IV PRN ×3 (03:00→23:41)
[2019-02-07 04:00] VITALS: BP 110/58
[2019-02-07 07:00] LABS: BASOPHILS % (AUTO) 1.2 % (0.0-2.0); EOSINOPHILS % (AUTO) 2.7 % (0.0-6.0); HEMATOCRIT 22 % (39-51); HEMOGLOBIN 7.3 g/dL (13.5-17.5); LYMPHOCYTES # (AUTO) 1.1 /CMM (0.8-4.8); LYMPHOCYTES % (AUTO) 27.6 % (20.0-44.0); MEAN CORPUSCULAR HGB CONC 33 g/dl (31.0-36.0); MEAN CORPUSCULAR VOLUME 87 fL (80-96); MONOCYTES # (AUTO) 0.4 /CMM (0.1-1.30); NEUTROPHILS # (AUTO) 2.3 /CMM (1.8-8.9); NEUTROPHILS % (AUTO) 58.5 % (43.0-81.0); PLATELET COUNT (AUTO) 234 /CMM (150-450); RED BLOOD CELL COUNT(AUTO) 2.52 MIL/uL (4.5-6.0); WHITE BLOOD COUNT (AUTO) 3.9 K/uL (4.3-11.0)
[2019-02-07] MEDS: BLOOD SUGAR DIAGNOSTIC 1 EACH STRIP IN SCH ×4 (07:35→22:04)
[2019-02-07 07:46] LABS: ALBUMIN 1.9 g/dL (3.4-5.0); BILIRUBIN,TOTAL 0.3 mg/dL (0.2-1.0); CALCIUM, SERUM 7.9 mg/dL (8.5-10.1); CREATININE 5.9 mg/dL (0.6-1.3); PHOSPHORUS 3.2 mg/dL (2.5-4.9); POTASSIUM 4.4 mmol/L (3.5-5.1); TOTAL PROTEIN, SERUM 4.4 g/dL (6.4-8.2)
[2019-02-07 08:00] VITALS: BP 149/77
[2019-02-07] MEDS: HYDROCORTISONE SOD SUCCINATE 100 MG/2 ML VIAL IV SCH ×2 (08:17→16:30)
[2019-02-07] MEDS: AMIODARONE HCL 200 MG TABLET PO SCH ×2 (08:18→16:30)
[2019-02-07] MEDS: MIDODRINE HCL (5MG) 5 MG TABLET PO SCH ×3 (08:18→16:30)
[2019-02-07] MEDS: FLUCONAZOLE (100 MG) 100 MG TABLET PO SCH (08:18)
[2019-02-07] MEDS: HYDROGEL DRESSING 90 GM TUBE TP SCH (08:23)
[2019-02-07] MEDS: CLOTRIMAZOLE 1% 15 GM TUBE TP SCH ×2 (08:24→16:31)
[2019-02-07] MEDS: Z GUARD REMEDY 2 OZ OINT TP SCH ×2 (08:24→21:46)
[2019-02-07] MEDS: INSULIN REGULAR, HUMAN 100 UNIT/ML 3 ML VIAL SQ PRN ×3 (11:56→21:47)
[2019-02-07 16:00] VITALS: BP 123/85
[2019-02-07 20:00] VITALS: BP 151/90
[2019-02-08 04:00] VITALS: BP 147/81
[2019-02-08] MEDS: MORPHINE SULFATE INJ 2 MG/ML DISP.SYRIN IV PRN ×3 (05:42→18:47)
[2019-02-08 07:19] LABS: CALCIUM, SERUM 8.1 mg/dL (8.5-10.1); CREATININE 7.4 mg/dL (0.6-1.3); POTASSIUM 4.8 mmol/L (3.5-5.1)
[2019-02-08 08:00] VITALS: BP_SYST 130; BP_SYST 165; BP_DIAS 77; BP_DIAS 92
[2019-02-08] MEDS: BLOOD SUGAR DIAGNOSTIC 1 EACH STRIP IN SCH ×3 (08:14→18:22)
[2019-02-08] MEDS: INSULIN REGULAR, HUMAN 100 UNIT/ML 3 ML VIAL SQ PRN ×3 (08:15→18:44)
[2019-02-08] MEDS: AMIODARONE HCL 200 MG TABLET PO SCH ×2 (09:25→18:41)
[2019-02-08] MEDS: FLUCONAZOLE (100 MG) 100 MG TABLET PO SCH (09:25)
[2019-02-08] MEDS: HYDROCORTISONE SOD SUCCINATE 100 MG/2 ML VIAL IV SCH ×2 (09:25→18:41)
[2019-02-08] MEDS: Z GUARD REMEDY 2 OZ OINT TP SCH (09:26)
[2019-02-08] MEDS: MIDODRINE HCL (5MG) 5 MG TABLET PO SCH ×3 (09:26→17:00)
[2019-02-08] MEDS: CLOTRIMAZOLE 1% 15 GM TUBE TP SCH ×2 (09:26→17:00)
[2019-02-08] MEDS: HYDROGEL DRESSING 90 GM TUBE TP SCH (09:26)
[2019-02-08] MEDS ORDERED: FLUC100T8 PO (14:14)
[2019-02-08 16:00] VITALS: BP 165/72
[2019-02-08 18:41] VITALS: BP 135/92
== END 2019-02-08 20:17 | DRG 853 ==
LOC: ER 06:23 → ICU 07:27 → TELE1 01-29 17:33 → MEDSG1 01-31 21:33
PROVIDERS: ADMIT Nurse Practitioner Acute Care; ATTEND Hospitalist
PROC: 0BH17EZ Insertion of Endotracheal Airway into Trachea, Via Natural or Artificial Opening (ICD-10-PCS; principal; 2019-01-25)
PROC: 30233N1 Transfusion of Nonautologous Red Blood Cells into Peripheral Vein, Percutaneous Approach (ICD-10-PCS; principal; 2019-01-25)
PROC: 05H533Z Insertion of Infusion Device into Right Subclavian Vein, Percutaneous Approach (ICD-10-PCS; principal; 2019-01-25)
PROC: 5A1945Z Respiratory Ventilation, 24-96 Consecutive Hours (ICD-10-PCS; principal; 2019-01-25)
PROC: 5A1D70Z Performance of Urinary Filtration, Intermittent, Less than 6 Hours Per Day (ICD-10-PCS; principal; 2019-01-25)
PROC: 06HY33Z Insertion of Infusion Device into Lower Vein, Percutaneous Approach (ICD-10-PCS; 2019-01-26)
PROC: 0KBC0ZZ Excision of Right Hand Muscle, Open Approach (ICD-10-PCS; 2019-01-26)
PROC: B54BZZA Ultrasonography of Right Lower Extremity Veins, Guidance (ICD-10-PCS; 2019-01-26)
PROC: 0JBL0ZZ Excision of Right Upper Leg Subcutaneous Tissue and Fascia, Open Approach (ICD-10-PCS; 2019-01-26)
PROC: 0DB78ZX Excision of Stomach, Pylorus, Via Natural or Artificial Opening Endoscopic, Diagnostic (ICD-10-PCS; 2019-01-27)
PROC: 0FD13ZX Extraction of Right Lobe Liver, Percutaneous Approach, Diagnostic (ICD-10-PCS; 2019-02-01)
PROC: 0KBC0ZZ Excision of Right Hand Muscle, Open Approach (ICD-10-PCS; 2019-02-01)
PROC: 0JBL0ZZ Excision of Right Upper Leg Subcutaneous Tissue and Fascia, Open Approach (ICD-10-PCS; 2019-02-01)
PROC: 0DBN8ZX Excision of Sigmoid Colon, Via Natural or Artificial Opening Endoscopic, Diagnostic (ICD-10-PCS; 2019-02-03)
PROC: 0JBJ0ZZ Excision of Right Hand Subcutaneous Tissue and Fascia, Open Approach (ICD-10-PCS; 2019-02-08)
PROC: 0JB70ZZ Excision of Back Subcutaneous Tissue and Fascia, Open Approach (ICD-10-PCS; 2019-02-08)
DX: A41.9 Sepsis, unspecified organism (principal); L89.153 Pressure ulcer of sacral region, stage 3; L89.213 Pressure ulcer of right hip, stage 3; R65.21 Severe sepsis with septic shock; I50.41 Acute combined systolic (congestive) and diastolic (congestive) heart failure; N18.6 End stage renal disease; E43 Unspecified severe protein-calorie malnutrition; G92 Toxic encephalopathy; J96.02 Acute respiratory failure with hypercapnia; J96.01 Acute respiratory failure with hypoxia; I21.A1 Myocardial infarction type 2; K75.0 Abscess of liver; D61.818 Other pancytopenia; I13.2 Hypertensive heart and chronic kidney disease with heart failure and with stage 5 chronic kidney disease, or end stage renal disease; E87.1 Hypo-osmolality and hyponatremia; D68.69 Other thrombophilia; E87.2 Acidosis; I47.2 Ventricular tachycardia; J98.11 Atelectasis; S61.401A Unspecified open wound of right hand, initial encounter; X58.XXXA Exposure to other specified factors, initial encounter; D63.8 Anemia in other chronic diseases classified elsewhere; I25.10 Atherosclerotic heart disease of native coronary artery without angina pectoris; G89.29 Other chronic pain; Z79.4 Long term (current) use of insulin; L30.4 Erythema intertrigo; E88.09 Other disorders of plasma-protein metabolism, not elsewhere classified; J44.9 Chronic obstructive pulmonary disease, unspecified; E11.65 Type 2 diabetes mellitus with hyperglycemia; E87.5 Hyperkalemia; M10.9 Gout, unspecified; M19.90 Unspecified osteoarthritis, unspecified site; L98.8 Other specified disorders of the skin and subcutaneous tissue; R23.4 Changes in skin texture; Z95.810 Presence of automatic (implantable) cardiac defibrillator; Z93.2 Ileostomy status; E11.610 Type 2 diabetes mellitus with diabetic neuropathic arthropathy; Y93.9 Activity, unspecified; Y92.129 Unspecified place in nursing home as the place of occurrence of the external cause; E11.43 Type 2 diabetes mellitus with diabetic autonomic (poly)neuropathy; K31.84 Gastroparesis; D69.6 Thrombocytopenia, unspecified; K44.9 Diaphragmatic hernia without obstruction or gangrene; K29.80 Duodenitis without bleeding; K29.00 Acute gastritis without bleeding; Z68.27 Body mass index [BMI] 27.0-27.9, adult; S31.20XA Unspecified open wound of penis, initial encounter; I44.7 Left bundle-branch block, unspecified; E11.22 Type 2 diabetes mellitus with diabetic chronic kidney disease; K64.8 Other hemorrhoids; Z99.2 Dependence on renal dialysis; E11.42 Type 2 diabetes mellitus with diabetic polyneuropathy; K21.9 Gastro-esophageal reflux disease without esophagitis; K29.60 Other gastritis without bleeding; Z94.7 Corneal transplant status; Z85.038 Personal history of other malignant neoplasm of large intestine; F17.200 Nicotine dependence, unspecified, uncomplicated
CPT/HCPCS: 31720; 36415; 36600; 45330; 47000; 71045-TC; 75989-TC; 80048-TC; 80053-TC; 80061-TC; 80074; 80076-TC; 80202-TC; 82105; 82247-TC; 82272-TC; 82378; 82533; 82728-TC; 82784; 82803-TC; 82962-TC; 83010; 83540-TC; 83605-TC; 83615-TC; 83735-TC; 84100-TC; 84153-TC; 84154-TC; 84155; 84165; 84484-TC; 85025-TC; 85027-TC; 85730-TC; 86301; 86334; 86704; 86706; 86850-TC; 86921-TC; 87040-TC; 87070-TC; 87075-TC; 87081-TC; 87340; 88112-TC; 88305-TC; 88313-TC; 88342; 90935-TC; 93930-TC; 94002-TC; 94003-TC; 94640-TC; 94760-TC; 94799-TC; 97110-TC; 97116-TC; 97530-TC; A4216; A6248; A6403; C1751; C9113; G0378; J0885; J1720; J1815; J2185; J2250; J2270; J2310; J2370; J2543; J2704; J2997; J3010; J3370; J3475; J3490; J7030; J7042; J7050; J7060; J7070; P9016-BL

== ENCOUNTER 2019-02-16 15:07 | Emergency (ER) | payer BC, OTHER ==
[~2019-02-16] VITALS: Ht 175.3 cm; Wt 69.9 kg
[~2019-02-16 15:07] MED LIST changes: -ACET-73 PO; +AMIO200T4 PO; -AMIO200T7 PO; -BLOO-668 IN; +FLUC100T8 PO; +FOLI1TAB16 PO; -Hydrocortisone Sod Succinate IV; -INSU100C10 SQ; -LACT1CAP69 PO; +MAGN400O6 PO; -NEOM1PAC2 TP; -ONDA4SYR IV; -OXYC5TAB3 PO; +PREG100C55 PO; -PREG75CA PO; +SACC250C PO; -SENN-18 PO; -SEVE800T8 PO; +ZOLP5TAB8 PO
[2019-02-16 15:43] LABS: BASOPHILS # (AUTO) 0.1 /CMM (0.0-0.2); EOSINOPHILS % (AUTO) 2.7 % (0.0-6.0); HEMATOCRIT 27 % (39-51); HEMOGLOBIN 8.9 g/dL (13.5-17.5); LYMPHOCYTES # (AUTO) 1.2 /CMM (0.8-4.8); LYMPHOCYTES % (AUTO) 42.8 % (20.0-44.0); MEAN CORPUSCULAR HGB CONC 33 g/dl (31.0-36.0); MEAN CORPUSCULAR VOLUME 87 fL (80-96); MONOCYTES # (AUTO) 0.2 /CMM (0.1-1.30); MONOCYTES % (AUTO) 9.1 % (2.0-12.0); NEUTROPHILS # (AUTO) 1.1 /CMM (1.8-8.9); NEUTROPHILS % (AUTO) 42.4 % (43.0-81.0); PLATELET COUNT (AUTO) 179 /CMM (150-450); RED BLOOD CELL COUNT(AUTO) 3.15 MIL/uL (4.5-6.0); WHITE BLOOD COUNT (AUTO) 2.7 K/uL (4.3-11.0)
[2019-02-16 16:00] LABS: ALBUMIN 2.7 g/dL (3.4-5.0); BILIRUBIN,DIRECT 0.2 mg/dL (0.0-0.2); BILIRUBIN,TOTAL 0.6 mg/dL (0.2-1.0); CREATININE 5.3 mg/dL (0.6-1.3); POTASSIUM 4.4 mmol/L (3.5-5.1); TOTAL PROTEIN, SERUM 6.3 g/dL (6.4-8.2)
--- NOTE | 2019-02-16 16:01 | NUR ---
BIBNELL, FROM [facility], PT HAD A SYNCOPE WHILE ON HD, BS 242 BP 97/50 ON SCENE. ON ROOM AIR, BREATHING EVENLY AND UNLABORED, CONNECTED TO THE MONITOR AND PULSE OX. WILL CONTINUE TO MONITOR ACCORDINGLY.
--- NOTE | 2019-02-16 17:15 | NUR ---
CALLED [facility] FOR TRANSPORT TO [facility]. ETA 45-60 MINUTES. TRIP # [id number].
[2019-02-16] MEDS: IV NS 0.9% 500 ML BAG IV ONE (19:00)
--- NOTE | 2019-02-16 19:00 | NUR ---
END TIME FOR NS: 1929
--- NOTE | 2019-02-16 19:48 | NUR ---
PT WAS PICKED UP BY [facility] IN STABLE CONDITION VIA GURNEY. ALL BELONGINGS PICKED UP . VSS. IV LINE REMOVED PRIOIR TO DC
[2019-02-16 20:09] VITALS: BP 104/68
[2019-02-17] MEDS ORDERED: AMIN887L PO (09:58)
[2019-02-27] MEDS ORDERED: MICA100V IV (11:37)
[2019-04-01] MEDS ORDERED: ASCO500T9 PO (11:55)
[2019-04-07] MEDS ORDERED: RXVAN XX (11:10)
[2019-04-20] MEDS ORDERED: MICA100V IV (12:06)
[2019-04-20] MEDS ORDERED: Linezolid PO (12:06)
[2019-04-20] MEDS ORDERED: MERO500P IV (12:06)
== END 2019-02-16 19:48 | disposition home or self-care (01) ==
LOC: ER 15:07
DX: I95.1 Orthostatic hypotension (principal); E11.22 Type 2 diabetes mellitus with diabetic chronic kidney disease; I12.0 Hypertensive chronic kidney disease with stage 5 chronic kidney disease or end stage renal disease; N18.6 End stage renal disease; Z99.2 Dependence on renal dialysis; M10.9 Gout, unspecified; Z93.3 Colostomy status; Z98.890 Other specified postprocedural states; Z91.048 Other nonmedicinal substance allergy status; Z79.899 Other long term (current) drug therapy
CPT/HCPCS: 36415; 70450; 71045; 80048; 80076; 82962; 84484; 85025; 85730; 93005; 99284; J7040

== ENCOUNTER 2019-02-17 09:38 | Inpatient (IN) | payer BC, OTHER ==
[~2019-02-17] VITALS: Ht 175.3 cm; Wt 204.6 kg
--- NOTE | 2019-02-17 09:48 | NUR ---
[email or web address] [facility] dr oropeza's office for hypotension. c/o dizziness when sitting up. Patient a/ox4, breathing even and unlabored, no sob noted, patient is verbally responsive. Changed into gown, attached to the desk monitor.
[2019-02-17] MEDS ORDERED: AMIN887L PO (09:58)
--- NOTE | 2019-02-17 10:01 | NUR ---
iv line established, blood drawn and sent to lab.
[2019-02-17 10:03] LABS: BASOPHILS # (AUTO) 0.1 /CMM (0.0-0.2); LYMPHOCYTES # (AUTO) 1.2 /CMM (0.8-4.8)
[2019-02-17 10:08] LABS: HEMATOCRIT 31 % (39-51); LYMPHOCYTES % (AUTO) 40.2 % (20.0-44.0); MEAN CORPUSCULAR HGB CONC 32 g/dl (31.0-36.0); MEAN CORPUSCULAR VOLUME 88 fL (80-96); MONOCYTES # (AUTO) 0.4 /CMM (0.1-1.30); MONOCYTES % (AUTO) 12.3 % (2.0-12.0); NEUTROPHILS # (AUTO) 1.2 /CMM (1.8-8.9); NEUTROPHILS % (AUTO) 40.5 % (43.0-81.0); PLATELET COUNT (AUTO) 176 /CMM (150-450); RED BLOOD CELL COUNT(AUTO) 3.55 MIL/uL (4.5-6.0); WHITE BLOOD COUNT (AUTO) 2.9 K/uL (4.3-11.0)
[2019-02-17 10:41] LABS: CALCIUM, SERUM 9.3 mg/dL (8.5-10.1); CARBON DIOXIDE 20 mmol/L (21-32); CHLORIDE 102 mmol/L (98-107); CREATININE 6.8 mg/dL (0.6-1.3); GLUCOSE 230 mg/dL (74-106); POTASSIUM 5.8 mmol/L (3.5-5.1); SODIUM SERUM 133 mmol/L (136-145); UREA NITROGEN, BLOOD 52 mg/dL (7-18)
[2019-02-17 10:47] LABS: ALANINE AMINOTRANSFERASE 17 U/L (12-78); ALBUMIN 2.9 g/dL (3.4-5.0); ALKALINE PHOSPHATASE 204 U/L (46-116); ASPARTATE AMINOTRANSFERASE 11 U/L (15-37); BILIRUBIN,DIRECT 0.2 mg/dL (0.0-0.2); BILIRUBIN,TOTAL 0.5 mg/dL (0.2-1.0); TOTAL PROTEIN, SERUM 6.9 g/dL (6.4-8.2)
--- NOTE | 2019-02-17 11:25 | NUR ---
CALLED NURSING SUP FOR BED
[2019-02-17 11:39] LABS: BAND % (MANUAL) 3 % (0.0-5.0); EOSINOPHILS % (MANUAL) 4 % (0-4); LYMPHOCYTES % (MANUAL) 53 % (16-48); MONOCYTES % (MANUAL) 9 % (0-11.0); NEUTROPHILS % (MANUAL) 31 (42-76)
--- NOTE | 2019-02-17 12:09 | NUR ---
REPORT GIVEN TO ESTELLE HERNANDEZ.
[2019-02-17] MEDS ORDERED: ONDANSETRON HCL/PF 4 MG/2 ML VIAL IVP PRN (13:00)
[2019-02-17] MEDS ORDERED: Z GUARD REMEDY 2 OZ OINT TP PRN (13:00)
[2019-02-17] MEDS ORDERED: MAG HYDROX/AL HYDROX/SIMETH 30 ML UDC PO PRN (13:00)
[2019-02-17] MEDS ORDERED: ZOLPIDEM TARTRATE 5 MG TABLET PO PRN (13:00)
[2019-02-17] MEDS ORDERED: MAGNESIUM HYDROXIDE 30 ML UDC PO PRN (13:00)
[2019-02-17] MEDS ORDERED: ACETAMINOPHEN 325 MG TABLET PO PRN (13:00)
[2019-02-17] MEDS ORDERED: HYDROCODONE/APAP 5/325MG 1 EACH TABLET PO PRN (13:00)
--- NOTE | 2019-02-17 13:35 | NUR ---
PATIENT TRASNFERRED TO ROOM 307-1 VIA ACLS PROTOCOL. NO DISTRESS NOTED.
[2019-02-17 16:00] VITALS: BP 90/59
--- NOTE | 2019-02-17 16:00 | NUR ---
ms rn received a 53 year old male, new admission from er, came in w/ dx of hypotension, generalized weakness, awake,alerr,oriented x4,not in any form of distress, respirations even and unlabored,no sob noted, came in w/ hd cath at left subclavian, colostomy at right abdominal side intact, no distress noted, denies pain at this time.
--- NOTE | 2019-02-17 18:00 | NUR ---
ms hand ornament maker done , hd started,tolerating well.
--- NOTE | 2019-02-17 19:14 | NUR ---
ms rn on bed, still on hd.
--- NOTE | 2019-02-17 19:15 | NUR ---
ms rn still on hd,cannot do skin assessment at this time, endorsed to fast food shift lead.
[2019-02-17 20:42] VITALS: BP 78/40
[2019-02-17] MEDS: FLUCONAZOLE (100 MG) 100 MG TABLET PO SCH (21:42)
[2019-02-18] VITALS (7 sets, daily range): BP systolic 83–125; BP diastolic 40–89
[2019-02-18 06:31] LABS: EOSINOPHILS % (AUTO) 1.9 % (0.0-6.0); HEMATOCRIT 27 % (39-51); HEMOGLOBIN 8.6 g/dL (13.5-17.5); LYMPHOCYTES # (AUTO) 0.7 /CMM (0.8-4.8); LYMPHOCYTES % (AUTO) 37.2 % (20.0-44.0); MEAN CORPUSCULAR HGB CONC 32 g/dl (31.0-36.0); MEAN CORPUSCULAR VOLUME 88 fL (80-96); MONOCYTES # (AUTO) 0.2 /CMM (0.1-1.30); MONOCYTES % (AUTO) 13.4 % (2.0-12.0); NEUTROPHILS # (AUTO) 0.8 /CMM (1.8-8.9); NEUTROPHILS % (AUTO) 45.5 % (43.0-81.0); PLATELET COUNT (AUTO) 142 /CMM (150-450); RED BLOOD CELL COUNT(AUTO) 3.03 MIL/uL (4.5-6.0)
--- NOTE | 2019-02-18 06:40 | NUR ---
SHIP BOSS NOTES AWAKE & RESPONSIVE. NOT IN ANY DISTRESS. NO SOB NOTED. DENIES ANY PAIN OR DISCOMFORT AT THIS TIME. ON TELE SR WITH BBB @ 90 WITH IV-HL PATENT & INTACT. AM CARE DONE. MONITORED ACCORDINGLY. CALL LIGHT WITHIN REACH. BED IN LOWEST POSITION. SR UP X 2 FOR SAFETY. WILL ENDORSE TO NEXT SHIFT.
[2019-02-18 06:46] LABS: WHITE BLOOD COUNT (AUTO) 1.7 K/uL (4.3-11.0)
[2019-02-18 06:58] LABS: CALCIUM, SERUM 8.8 mg/dL (8.5-10.1); CREATININE 5.1 mg/dL (0.6-1.3); MAGNESIUM 1.9 mg/dL (1.8-2.4); PHOSPHORUS 1.9 mg/dL (2.5-4.9)
[2019-02-18 07:22] LABS: BAND % (MANUAL) 1 % (0.0-5.0); LYMPHOCYTES % (MANUAL) 44 % (16-48); MONOCYTES % (MANUAL) 12 % (0-11.0); NEUTROPHILS % (MANUAL) 43 (42-76)
--- NOTE | 2019-02-18 08:00 | NUR ---
made aware Dr. Sotelo blood glucose level of 370.
[2019-02-18] MEDS ORDERED: MAG HYDROX/AL HYDROX/SIMETH 30 ML UDC PO PRN (08:30)
[2019-02-18] MEDS ORDERED: ZOLPIDEM TARTRATE 5 MG TABLET PO PRN (08:30)
[2019-02-18] MEDS ORDERED: MAGNESIUM HYDROXIDE 30 ML UDC PO PRN (08:30)
[2019-02-18] MEDS ORDERED: BISACODYL SUPP (10 MG) 10 MG/SUPP.RECT SUPP.RECT RC PRN (08:30)
[2019-02-18] MEDS ORDERED: DEXTROSE 50%-WATER 50 ML DISP.SYRIN IV PRN (08:30)
[2019-02-18] MEDS ORDERED: ACETAMINOPHEN 325 MG TABLET PO PRN (08:30)
[2019-02-18] MEDS ORDERED: NA PHOS,M-B/NA PHOS,DI-BA 1 EA ENEMA RC PRN (08:30)
[2019-02-18] MEDS: AMIODARONE HCL 200 MG TABLET PO SCH ×3 (09:42→17:03)
[2019-02-18] MEDS: VIT B CMPLX 3/FA/VIT C/BIOTIN 1 TAB TABLET PO SCH (09:42)
[2019-02-18] MEDS: FOLIC ACID 1 MG TABLET PO SCH (09:42)
[2019-02-18] MEDS: DULOXETINE HCL 30 MG CAPSULE.DR PO SCH ×2 (09:42→21:59)
[2019-02-18] MEDS: LACTOBACILLUS RHAMNOSUS GG 1 EACH CAP.SPRINK PO SCH ×2 (09:42→17:03)
[2019-02-18] MEDS: FLUCONAZOLE (100 MG) 100 MG TABLET PO SCH (09:42)
[2019-02-18] MEDS: FERROUS SULFATE (325 MG) 325 MG/TAB TABLET PO SCH ×2 (09:43→17:04)
[2019-02-18] MEDS: GABAPENTIN 100 MG CAPSULE PO SCH ×3 (09:43→17:03)
[2019-02-18] MEDS: MIDODRINE HCL (5MG) 5 MG TABLET PO SCH ×3 (09:43→17:03)
[2019-02-18] MEDS: PROSOURCE / PROSTAT (PYXIS) 30 ML UDC PO SCH ×3 (09:44→17:04)
[2019-02-18] MEDS: CALCIUM ACETATE 667 MG TABLET PO SCH ×3 (09:45→17:03)
[2019-02-18] MEDS ORDERED: K PHOS NEUTRAL 250 MG TABLET PO ONE (10:00)
[2019-02-18 10:42] LABS: THYROID STIMULATING HORMONE 3.757 uIU/mL (0.358-3.74)
[2019-02-18] MEDS: HYDROCODONE/APAP 5/325MG 1 EACH TABLET PO PRN ×2 (11:52→21:56)
[2019-02-18] MEDS: INSULIN REGULAR, HUMAN 100 UNIT/ML 3 ML VIAL SQ PRN (11:55)
[2019-02-18] MEDS: BLOOD SUGAR DIAGNOSTIC 1 EACH STRIP IN SCH ×3 (12:23→21:56)
[2019-02-18] MEDS: MICAFUNGIN SODIUM 100 MG in IV NS 0.9% 100 ML IV SCH (18:28)
--- NOTE | 2019-02-18 18:30 | NUR ---
sliding scale and accu-check initiated
--- NOTE | 2019-02-18 18:46 | NUR ---
PATIENT AWAKE A/O X4. BREATHING UNLABORED AND EVEN ON ROOM AIR. BP INCREASED TO 118/65 DENIES ANY PAIN OR DISCOMFORT AT THIS TIME. IV LINE INTACT AND PATENT.ILEOSTOMY BACK CHANGED 4 TIME . ALL NEEDS ATTENDED AND PATIENT KEPT CLEAN AND DRY.CALL LIGHT WITHIN REACH. BED IN LOWEST POSITION. SIDE RAILS UP X 2 . WILL ENDORSE TO NEXT SHIFT FOR SADIA.
--- NOTE | 2019-02-18 19:30 | NUR ---
MS/RN NOTES RECEIVED PT. LYING IN BED RESTING. PT. IS EASILY AROUSABLE TO NAME. PT. IS AWAKE, ALERT AND ORIENTED X3. BREATHING EVEN AND UNLABORED ON ROOM AIR. NO SOB, RESPIRATORY DISTRESS OR COMPLAINTS OF PAIN NOTED AT THIS TIME. PT. WITH IV SALINE LOCK PRESENT, PATENT AND INTACT. PT. WITH ILEOSTOMY PRESENT, PATENT AND INTACT. BED LOCKED AND IN LOWEST POSITION, SIDE RAILS UP X2, CALL LIGHT WITHIN REACH, WILL CONTINUE TO MONITOR.
--- NOTE | 2019-02-18 21:35 | NUR ---
MS/RN NOTES PT. IS LYING IN BED RESTING. BREATHING EVEN AND UNLABORED ON ROOM AIR. NO SOB, RESPIRATORY DISTRESS OR COMPLAINTS OF PAIN NOTED AT THIS TIME. GAVE REPORT AND ENDORSED PT. TO MARY WANG FOR CONTINUITY OF CARE.
[2019-02-18] MEDS: *INSULIN REGULAR(HUMULIN R)HUM 100 UNIT/ML VIAL SQ PRN (21:52)
[2019-02-18] MEDS: DOCUSATE SODIUM 100 MG CAPSULE PO SCH (22:58)
[2019-02-19] MEDS: INSULIN REGULAR, HUMAN 100 UNIT/ML 3 ML VIAL SQ PRN ×3 (06:25→16:59)
[2019-02-19] MEDS: BLOOD SUGAR DIAGNOSTIC 1 EACH STRIP IN SCH ×4 (06:26→21:43)
[2019-02-19 06:30] LABS: BASOPHILS # (AUTO) 0.1 /CMM (0.0-0.2); BASOPHILS % (AUTO) 3.2 % (0.0-2.0); EOSINOPHILS % (AUTO) 4.5 % (0.0-6.0); HEMATOCRIT 28 % (39-51); HEMOGLOBIN 9.1 g/dL (13.5-17.5); LYMPHOCYTES # (AUTO) 0.8 /CMM (0.8-4.8); LYMPHOCYTES % (AUTO) 43.8 % (20.0-44.0); MEAN CORPUSCULAR HGB CONC 33 g/dl (31.0-36.0); MEAN CORPUSCULAR VOLUME 87 fL (80-96); MONOCYTES # (AUTO) 0.3 /CMM (0.1-1.30); MONOCYTES % (AUTO) 13.6 % (2.0-12.0); NEUTROPHILS # (AUTO) 0.7 /CMM (1.8-8.9); NEUTROPHILS % (AUTO) 34.9 % (43.0-81.0); PLATELET COUNT (AUTO) 153 /CMM (150-450); RED BLOOD CELL COUNT(AUTO) 3.17 MIL/uL (4.5-6.0)
--- NOTE | 2019-02-19 06:36 | NUR ---
MS/RN PATIENT IS AWAKE, ALERT, COMFORTABLE, NO DISTRESS NOTED, ALL NEEDS ATTENDED AT THIS TIME, CALL LIGHT WITHIN REACH, WILL CONTINUE TO MONITOR.
[2019-02-19 06:38] LABS: CALCIUM, SERUM 9.3 mg/dL (8.5-10.1); CREATININE 7.1 mg/dL (0.6-1.3); POTASSIUM 5.5 mmol/L (3.5-5.1)
[2019-02-19 07:21] LABS: WHITE BLOOD COUNT (AUTO) 1.9 K/uL (4.3-11.0)
[2019-02-19 07:52] VITALS: BP 92/50
[2019-02-19 08:00] VITALS: BP 92/50
[2019-02-19 08:12] LABS: LYMPHOCYTES % (MANUAL) 48 % (16-48); MONOCYTES % (MANUAL) 4 % (0-11.0); NEUTROPHILS % (MANUAL) 48 (42-76)
[2019-02-19] MEDS: AMIODARONE HCL 200 MG TABLET PO SCH ×3 (08:13→16:33)
[2019-02-19] MEDS: VIT B CMPLX 3/FA/VIT C/BIOTIN 1 TAB TABLET PO SCH (08:13)
[2019-02-19] MEDS: GABAPENTIN 100 MG CAPSULE PO SCH ×3 (08:13→16:32)
[2019-02-19] MEDS: CALCIUM ACETATE 667 MG TABLET PO SCH ×3 (08:13→17:13)
[2019-02-19] MEDS: FERROUS SULFATE (325 MG) 325 MG/TAB TABLET PO SCH ×2 (08:13→16:31)
[2019-02-19] MEDS: FOLIC ACID 1 MG TABLET PO SCH (08:13)
[2019-02-19] MEDS: DULOXETINE HCL 30 MG CAPSULE.DR PO SCH ×2 (08:14→20:07)
[2019-02-19] MEDS: PANTOPRAZOLE 40 MG TABLET.DR PO SCH (08:14)
[2019-02-19] MEDS: MIDODRINE HCL (5MG) 5 MG TABLET PO SCH ×3 (08:14→16:31)
[2019-02-19] MEDS: LACTOBACILLUS RHAMNOSUS GG 1 EACH CAP.SPRINK PO SCH ×2 (08:14→16:34)
[2019-02-19] MEDS: PROSOURCE / PROSTAT (PYXIS) 30 ML UDC PO SCH ×3 (08:15→16:37)
[2019-02-19] MEDS: HYDROCODONE/APAP 5/325MG 1 EACH TABLET PO PRN ×2 (09:01→17:13)
--- NOTE | 2019-02-19 10:05 | NUR ---
patient picket up by radiology staff fot CT abd/pelvis with the contrast
[2019-02-19] MEDS ORDERED: IOHEXOL-300 100 ML VIAL IV ONE (10:57)
--- NOTE | 2019-02-19 12:30 | NUR ---
ileostomy bag changed. Aria around stoma cleaned with soap and water, pat dry. Ostomy powder applied.
[2019-02-19] MEDS: HYDROGEL DRESSING 90 GM TUBE TP SCH (15:02)
[2019-02-19 16:00] VITALS: BP 106/62
--- NOTE | 2019-02-19 16:21 | NUR ---
received call from dialysis nurse. Patient will be dialyzed today at 2000 pm
[2019-02-19] MEDS: MICAFUNGIN SODIUM 100 MG in IV NS 0.9% 100 ML IV SCH (17:14)
--- NOTE | 2019-02-19 18:22 | NUR ---
PATIENT AWAKE A/O X4. BREATHING UNLABORED AND EVEN ON ROOM AIR. BP WITHIN BASELINE. DENIES ANY PAIN OR DISCOMFORT AT THIS TIME. IV LINE INTACT AND PATENT. ILEOSTOMY BACK CHANGED 2 TIMES . ALL NEEDS ATTENDED AND PATIENT KEPT CLEAN AND DRY.CALL LIGHT WITHIN REACH. BED IN LOWEST POSITION. SIDE RAILS UP X 2 . WILL ENDORSE TO NEXT SHIFT FOR SADIA.
--- NOTE | 2019-02-19 19:00 | NUR ---
MS RN OPENING NOTES RECEIVED PATIENT RESTING IN BED, ALERT, ORIENTED X 4. BREATHING EVEN AND UNLABORED. NOT IN ANY DISTRESS. ON ROOM AIR. NO COMPLAINTS OF PAIN OR DISCOMFORT AT THIS TIME. ILEOSTOMY BAG IN PLACE, NO LEAK. IV LINE ON R) HAND INTACT AND PATENT. SAFETY MEASURES IN PLACE; CALL LIGHT WITHIN REACH, BED IN LOW, LOCKED POSITION. WILL CONTINUE TO MONITOR ACCORDINGLY
[2019-02-19 20:00] VITALS: BP 113/56
--- NOTE | 2019-02-19 20:55 | NUR ---
RN NOTES LOCKSTITCH COLLAR SETTER AT BEDSIDE.
[2019-02-19] MEDS: *INSULIN REGULAR(HUMULIN R)HUM 100 UNIT/ML VIAL SQ PRN (21:46)
[2019-02-19] MEDS: DOCUSATE SODIUM 100 MG CAPSULE PO SCH (21:52)
--- NOTE | 2019-02-19 21:52 | NUR ---
RN NOTES BSL- 201MG/DL. 4 UNITS INSULIN GIVEN PER SLIDING SCALE. SNACKS PROVIDED. PATIENT REFUSED COLACE. RETURNED TO [facility]
--- NOTE | 2019-02-19 23:25 | NUR ---
RN NOTES DIALYSIS DONE. NO OUTPUT
--- NOTE | 2019-02-20 00:45 | NUR ---
RN NOTES ILEOSTOMY BAG LEAKING. AREA AROUND STOMA CLEANED WITH SOAP AND WATER, PAT DRY, OSTOMY POWDER APPLIED, BAG CHANGED.
[2019-02-20] MEDS: BLOOD SUGAR DIAGNOSTIC 1 EACH STRIP IN SCH ×4 (06:33→21:12)
[2019-02-20] MEDS: INSULIN REGULAR, HUMAN 100 UNIT/ML 3 ML VIAL SQ PRN ×3 (06:36→17:12)
[2019-02-20 06:43] LABS: EOSINOPHILS % (AUTO) 2.4 % (0.0-6.0); HEMATOCRIT 27 % (39-51); LYMPHOCYTES # (AUTO) 0.4 /CMM (0.8-4.8); LYMPHOCYTES % (AUTO) 46.6 % (20.0-44.0); MEAN CORPUSCULAR HGB CONC 33 g/dl (31.0-36.0); MEAN CORPUSCULAR VOLUME 87 fL (80-96); MONOCYTES # (AUTO) 0.2 /CMM (0.1-1.30); MONOCYTES % (AUTO) 17.2 % (2.0-12.0); NEUTROPHILS # (AUTO) 0.3 /CMM (1.8-8.9); NEUTROPHILS % (AUTO) 32.8 % (43.0-81.0); PLATELET COUNT (AUTO) 127 /CMM (150-450); RED BLOOD CELL COUNT(AUTO) 3.14 MIL/uL (4.5-6.0)
--- NOTE | 2019-02-20 06:50 | NUR ---
MS RN CLOSING NOTES Patient still sleeping in bed, easily arousable. Breathing even and unlabored. Not in any distress, on room air. No complaints at this time. Kept clean, dry and comfortable. No acute changes overnight. All needs attended. Safety measures in place; call light within reach, bed in low, locked position. Will endorse SADIA to oncoming RN
--- NOTE | 2019-02-20 07:10 | NUR ---
MS RN OPENING NOTES RECEIVED PT IN BED, ASLEEP, EASILY AROUSED. A/O X3. PT TOLERATING RA, WITH NO ACUTE RESPIRATORY DISTRESS NOTED. PT DENIES ANY PAIN OR DISCOMFORT AT THIS TIME. ALSO DENIES, CONCERNS OR QUESTIONS. PIV TO R HAND G20,FLUSHED WITH NS, INTACT AND OPERATIONAL. ILEOSTOMY TO RLQ OF ABD PRESENT. PT KEPT COMFORTABLE. CALL LIGHT KEPT WITHIN REACH. PT'S BED IN LOWEST, LOCKED POSITION WITH SRX3. WILL CONTINUE PLAN OF CARE.
[2019-02-20 07:15] LABS: CREATININE 5.1 mg/dL (0.6-1.3); MAGNESIUM 1.9 mg/dL (1.8-2.4); PHOSPHORUS 2.3 mg/dL (2.5-4.9); POTASSIUM 5.1 mmol/L (3.5-5.1)
[2019-02-20 07:42] LABS: WHITE BLOOD COUNT (AUTO) 0.9 K/uL (4.3-11.0)
[2019-02-20 08:00] VITALS: BP 100/63
[2019-02-20] MEDS: LACTOBACILLUS RHAMNOSUS GG 1 EACH CAP.SPRINK PO SCH ×2 (08:04→16:54)
[2019-02-20] MEDS: FOLIC ACID 1 MG TABLET PO SCH (08:04)
[2019-02-20] MEDS: FERROUS SULFATE (325 MG) 325 MG/TAB TABLET PO SCH ×2 (08:04→16:56)
[2019-02-20] MEDS: PANTOPRAZOLE 40 MG TABLET.DR PO SCH (08:04)
[2019-02-20] MEDS: CALCIUM ACETATE 667 MG TABLET PO SCH ×3 (08:04→17:00)
[2019-02-20] MEDS: GABAPENTIN 100 MG CAPSULE PO SCH ×3 (08:04→16:56)
[2019-02-20] MEDS: VIT B CMPLX 3/FA/VIT C/BIOTIN 1 TAB TABLET PO SCH (08:04)
[2019-02-20] MEDS: DULOXETINE HCL 30 MG CAPSULE.DR PO SCH ×2 (08:05→20:12)
[2019-02-20] MEDS: AMIODARONE HCL 200 MG TABLET PO SCH ×3 (08:05→16:56)
[2019-02-20] MEDS: MIDODRINE HCL (5MG) 5 MG TABLET PO SCH ×3 (08:05→16:56)
[2019-02-20 08:06] LABS: AFP, TUMOR MARKER 1.6 ng/mL (0.0-8.3)
[2019-02-20] MEDS: HYDROGEL DRESSING 90 GM TUBE TP SCH (08:06)
[2019-02-20] MEDS: PROSOURCE / PROSTAT (PYXIS) 30 ML UDC PO SCH ×3 (08:06→16:55)
--- NOTE | 2019-02-20 08:30 | NUR ---
MS RN NOTES HOSPITALIST/SK MADE AWARE REGARDING PT'S WBC. ORDERED TO INITIATE REVERSE ISOLATION. PT AND CN/BRENDEN MADE AWARE.
[2019-02-20] MEDS ORDERED: K PHOS NEUTRAL 250 MG TABLET PO ONE (09:00)
--- NOTE | 2019-02-20 10:00 | NUR ---
MS RN NOTES RECEIVED ORDER FOR CT GUIDED ABD MASS BIOPSY SCHEDULED ON 02/22. VERIFIED NPO ORDER. PER DR GIRON NPO MIDNIGHT BEFORE 02/22. ORDER CHANGED. PT AND RAVINDRA/BRENDEN MADE AWARE.
[2019-02-20] MEDS ORDERED: FEE PK DOSING 1 MIN EA MC ONE (12:18)
[2019-02-20] MEDS ORDERED: VANCOMYCIN 500 MG in IV D5W 100 ML IV PRN (12:30)
[2019-02-20] MEDS ORDERED: VANCOMYCIN 1 GM in IV D5W 250 ML IV ONE (13:00)
[2019-02-20] MEDS: HYDROCODONE/APAP 5/325MG 1 EACH TABLET PO PRN (14:25)
[2019-02-20] MEDS: PIPERACILLIN /TAZOBACTAM 2.25 G in IV D5W 50 ML IV SCH ×2 (15:42→21:12)
[2019-02-20 16:00] VITALS: BP 128/72
[2019-02-20] MEDS: MICAFUNGIN SODIUM 100 MG in IV NS 0.9% 100 ML IV SCH (17:02)
--- NOTE | 2019-02-20 18:51 | NUR ---
MS RN CLOSING NOTES PT IN BED, AWAKE. A/O X3-4. PT TOLERATING RA, WITH NO ACUTE RESPIRATORY DISTRESS NOTED. PT DENIES ANY PAIN OR DISCOMFORT AT THIS TIME. PIV TO RFA G20,FLUSHED WITH NS, INTACT AND OPERATIONAL. ILEOSTOMY TO RLQ OF ABD PRESENT. PT KEPT COMFORTABLE. ALL NEEDS AND CARE ATTENDED. CALL LIGHT KEPT WITHIN REACH. PT'S BED IN LOWEST, LOCKED POSITION WITH SRX3. WILL ENDORSE TO INCOMING NIGHT NURSE FOR SADIA.
--- NOTE | 2019-02-20 19:20 | NUR ---
MS RN OPENING NOTES Received patient A/O x4, awake on bed. On RA, no SOB/respiratory distress noted. No complaints made at this time. Discussed to patient the POC, patient verbalized understanding. Kept on bed clean, dry and comfortable. Call light within easy reach. On fall and aspiration precautions. Will continue to monitor accordingly.
[2019-02-20 20:00] VITALS: BP 119/62
[2019-02-20] MEDS: DOCUSATE SODIUM 100 MG CAPSULE PO SCH (21:12)
[2019-02-20] MEDS: *INSULIN REGULAR(HUMULIN R)HUM 100 UNIT/ML VIAL SQ PRN (22:13)
[2019-02-21] MEDS: PIPERACILLIN /TAZOBACTAM 2.25 G in IV D5W 50 ML IV SCH ×3 (05:58→21:25)
[2019-02-21 06:22] LABS: BASOPHILS % (AUTO) 1.5 % (0.0-2.0); HEMATOCRIT 25 % (39-51); HEMOGLOBIN 8.1 g/dL (13.5-17.5); LYMPHOCYTES # (AUTO) 0.8 /CMM (0.8-4.8); LYMPHOCYTES % (AUTO) 61.7 % (20.0-44.0); MEAN CORPUSCULAR HGB CONC 32 g/dl (31.0-36.0); MEAN CORPUSCULAR VOLUME 87 fL (80-96); MONOCYTES # (AUTO) 0.2 /CMM (0.1-1.30); MONOCYTES % (AUTO) 17.1 % (2.0-12.0); NEUTROPHILS # (AUTO) 0.2 /CMM (1.8-8.9); NEUTROPHILS % (AUTO) 17.7 % (43.0-81.0); PLATELET COUNT (AUTO) 112 /CMM (150-450); RED BLOOD CELL COUNT(AUTO) 2.85 MIL/uL (4.5-6.0)
[2019-02-21 06:48] LABS: CALCIUM, SERUM 9.1 mg/dL (8.5-10.1); CREATININE 6.9 mg/dL (0.6-1.3); MAGNESIUM 1.8 mg/dL (1.8-2.4); POTASSIUM 5.8 mmol/L (3.5-5.1)
[2019-02-21 06:50] LABS: WHITE BLOOD COUNT (AUTO) 1.3 K/uL (4.3-11.0)
--- NOTE | 2019-02-21 06:53 | NUR ---
MS RN CLOSING NOTES Patient asleep on bed easily awaken. On RA, no SOB/respiratory distress noted. No new complaints made. All due meds given as ordered. Ileostomy bag emptied PRN. Patient remained anuric. All nursing needs attended. Kept on bed clean, dry and comfortable. Call light within easy reach. Endorsed to the next shift.
--- NOTE | 2019-02-21 07:20 | NUR ---
MS RN OPENING NOTES RECEIVED PT IN BED, ASLEEP, EASILY AROUSED. A/O X3. PT TOLERATING RA, WITH NO ACUTE RESPIRATORY DISTRESS NOTED. PT DENIES ANY PAIN OR DISCOMFORT AT THIS TIME. ALSO DENIES, CONCERNS OR QUESTIONS. PIV TO RfaG20, FLUSHED WITH NS, INTACT AND OPERATIONAL. ILEOSTOMY TO RLQ OF ABD PRESENT. PT KEPT COMFORTABLE. CALL LIGHT KEPT WITHIN REACH. PT'S BED IN LOWEST, LOCKED POSITION WITH SRX3. WILL CONTINUE PLAN OF CARE.
[2019-02-21 07:48] LABS: BAND % (MANUAL) 2 % (0.0-5.0); EOSINOPHILS % (MANUAL) 2 % (0-4); LYMPHOCYTES % (MANUAL) 59 % (16-48); MONOCYTES % (MANUAL) 18 % (0-11.0); NEUTROPHILS % (MANUAL) 19 (42-76)
[2019-02-21 08:00] VITALS: BP 91/54
[2019-02-21] MEDS: FOLIC ACID 1 MG TABLET PO SCH (08:32)
[2019-02-21] MEDS: PANTOPRAZOLE 40 MG TABLET.DR PO SCH (08:32)
[2019-02-21] MEDS: FERROUS SULFATE (325 MG) 325 MG/TAB TABLET PO SCH ×2 (08:32→16:10)
[2019-02-21] MEDS: CALCIUM ACETATE 667 MG TABLET PO SCH ×3 (08:32→17:04)
[2019-02-21] MEDS: LACTOBACILLUS RHAMNOSUS GG 1 EACH CAP.SPRINK PO SCH ×2 (08:32→16:10)
[2019-02-21] MEDS: GABAPENTIN 100 MG CAPSULE PO SCH ×3 (08:32→16:10)
[2019-02-21] MEDS: BLOOD SUGAR DIAGNOSTIC 1 EACH STRIP IN SCH ×4 (08:32→21:42)
[2019-02-21] MEDS: VIT B CMPLX 3/FA/VIT C/BIOTIN 1 TAB TABLET PO SCH (08:32)
[2019-02-21] MEDS: MIDODRINE HCL (5MG) 5 MG TABLET PO SCH ×3 (08:33→16:18)
[2019-02-21] MEDS: DULOXETINE HCL 30 MG CAPSULE.DR PO SCH ×2 (08:33→21:25)
[2019-02-21] MEDS: PROSOURCE / PROSTAT (PYXIS) 30 ML UDC PO SCH ×3 (08:33→16:18)
[2019-02-21] MEDS: AMIODARONE HCL 200 MG TABLET PO SCH ×3 (09:00→16:18)
[2019-02-21] MEDS: HYDROGEL DRESSING 90 GM TUBE TP SCH (09:12)
[2019-02-21] MEDS: HYDROCODONE/APAP 5/325MG 1 EACH TABLET PO PRN ×2 (10:17→18:34)
--- NOTE | 2019-02-21 11:50 | NUR ---
MS RN NOTES PT IS BEING DIALIZE AT THIS TIME.
[2019-02-21] MEDS: INSULIN REGULAR, HUMAN 100 UNIT/ML 3 ML VIAL SQ PRN ×2 (12:02→17:03)
--- NOTE | 2019-02-21 13:16 | NUR ---
MS RN NOTES SEEN AND EVALUATED BY DR GIRON. PROCEDURE CONSENT FOR PLANNED CT GUIDED ABSCESS DRAINAGE TOMORROW, SIGNED BY PT. WILL CONTINUE TO MONITOR.
--- NOTE | 2019-02-21 14:08 | NUR ---
MS RN NOTES HD DONE WITH NO OUTPUT. WILL CONTINUE TO MONITOR.
[2019-02-21 16:00] VITALS: BP 133/74
[2019-02-21] MEDS: MICAFUNGIN SODIUM 100 MG in IV NS 0.9% 100 ML IV SCH (17:05)
--- NOTE | 2019-02-21 18:31 | NUR ---
MS RN CLOSING NOTES PT IN BED, AWAKE. A/O X4. PT TOLERATING RA, WITH NO ACUTE RESPIRATORY DISTRESS NOTED. PT DENIES ANY PAIN OR DISCOMFORT AT THIS TIME. PIV TO RFAG20, FLUSHED WITH NS, INTACT AND OPERATIONAL. ILEOSTOMY TO RLQ OF ABD PRESENT. PT KEPT COMFORTABLE. ALL NEEDS AND CARE ATTENDED AND PROVIDED.CALL LIGHT KEPT WITHIN REACH. PT'S BED IN LOWEST, LOCKED POSITION WITH SRX3. WILL ENDORSE TO INCOMING GROUND WATER TECHNICIAN NURSE FOR SADIA.
--- NOTE | 2019-02-21 19:00 | NUR ---
MS RN OPENING NOTES Received patient A/O x4, awake on bed. Patient denies discomfort at this time. On RA, no SOB/respiratory distress noted at this time. Kept on bed clean dry and comfortable. Call light within easy reach. Will continue to monitor accordingly.
--- NOTE | 2019-02-21 19:15 | NUR ---
MS HERNANDEZ OPENING NOTES Received patient A/O x4, awake on bed. On RA, no SOB/respiratory distress noted. No complaints made at this time. Discussed to patient the POC, NPO at midnight, patient verbalized understanding. Kept on bed clean, dry and comfortable. Call light within easy reach. On fall and aspiration precautions. Will continue to monitor accordingly. Addendum: 02/22/19 at 0645 by JUAN PABLO DAWSON RN wrong entry
[2019-02-21 20:00] VITALS: BP 130/72
[2019-02-21] MEDS: DOCUSATE SODIUM 100 MG CAPSULE PO SCH (21:26)
[2019-02-21] MEDS: *INSULIN REGULAR(HUMULIN R)HUM 100 UNIT/ML VIAL SQ PRN (21:44)
[2019-02-22] MEDS: PIPERACILLIN /TAZOBACTAM 2.25 G in IV D5W 50 ML IV SCH ×3 (05:38→21:59)
--- NOTE | 2019-02-22 06:30 | NUR ---
MS RN NOTES BS- 166. Held insulin, patient on NPO for scheduled procedure at this time.
--- NOTE | 2019-02-22 06:46 | NUR ---
MS RN CLOSING NOTES Patient asleep on bed easily awaken. On RA, no SOB/respiratory distress noted. No new complaints made. All due meds given as ordered. Ileostomy bag emptied PRN. Patient remained anuric. All nursing needs attended. On NPO since midnight. Kept on bed clean, dry and comfortable. Call light within easy reach. Endorsed to the next shift.
[2019-02-22] MEDS: BLOOD SUGAR DIAGNOSTIC 1 EACH STRIP IN SCH ×4 (07:30→21:45)
[2019-02-22] MEDS: PANTOPRAZOLE 40 MG TABLET.DR PO SCH (07:30)
[2019-02-22 07:31] LABS: CALCIUM, SERUM 8.5 mg/dL (8.5-10.1); CREATININE 5.8 mg/dL (0.6-1.3); MAGNESIUM 1.8 mg/dL (1.8-2.4); PHOSPHORUS 2.6 mg/dL (2.5-4.9)
[2019-02-22 07:38] LABS: BASOPHILS % (AUTO) 0.8 % (0.0-2.0); EOSINOPHILS % (AUTO) 5.3 % (0.0-6.0); HEMATOCRIT 24 % (39-51); LYMPHOCYTES # (AUTO) 0.8 /CMM (0.8-4.8); LYMPHOCYTES % (AUTO) 57.8 % (20.0-44.0); MEAN CORPUSCULAR HGB CONC 33 g/dl (31.0-36.0); MEAN CORPUSCULAR VOLUME 87 fL (80-96); MONOCYTES # (AUTO) 0.3 /CMM (0.1-1.30); MONOCYTES % (AUTO) 20.3 % (2.0-12.0); NEUTROPHILS # (AUTO) 0.2 /CMM (1.8-8.9); NEUTROPHILS % (AUTO) 15.8 % (43.0-81.0); PLATELET COUNT (AUTO) 100 /CMM (150-450); RED BLOOD CELL COUNT(AUTO) 2.81 MIL/uL (4.5-6.0)
[2019-02-22 07:42] LABS: WHITE BLOOD COUNT (AUTO) 1.4 K/uL (4.3-11.0)
--- NOTE | 2019-02-22 07:42 | NUR ---
RN OPENING NOTES Patient received on room air, no sob noted, patient denies pain at this time. NPO from midnight. RFA @ 20 SL, LCW perma cath. Bed at the lowest setting, call light within reach, side rails up x2.
[2019-02-22] MEDS: CALCIUM ACETATE 667 MG TABLET PO SCH ×3 (08:00→18:05)
[2019-02-22 08:45] LABS: BAND % (MANUAL) 3 % (0.0-5.0); EOSINOPHILS % (MANUAL) 5 % (0-4); LYMPHOCYTES % (MANUAL) 60 % (16-48); MONOCYTES % (MANUAL) 16 % (0-11.0); NEUTROPHILS % (MANUAL) 16 (42-76)
[2019-02-22] MEDS: FOLIC ACID 1 MG TABLET PO SCH (09:00)
[2019-02-22] MEDS: MIDODRINE HCL (5MG) 5 MG TABLET PO SCH ×3 (09:00→16:33)
[2019-02-22] MEDS: LACTOBACILLUS RHAMNOSUS GG 1 EACH CAP.SPRINK PO SCH ×2 (09:00→16:32)
[2019-02-22] MEDS: DULOXETINE HCL 30 MG CAPSULE.DR PO SCH ×2 (09:00→21:41)
[2019-02-22] MEDS: FERROUS SULFATE (325 MG) 325 MG/TAB TABLET PO SCH ×2 (09:00→16:32)
[2019-02-22] MEDS: VIT B CMPLX 3/FA/VIT C/BIOTIN 1 TAB TABLET PO SCH (09:00)
[2019-02-22] MEDS: PROSOURCE / PROSTAT (PYXIS) 30 ML UDC PO SCH ×3 (09:00→17:00)
[2019-02-22] MEDS: AMIODARONE HCL 200 MG TABLET PO SCH ×3 (09:00→16:41)
[2019-02-22] MEDS: GABAPENTIN 100 MG CAPSULE PO SCH ×3 (09:00→16:32)
[2019-02-22 09:28] VITALS: BP 105/57
[2019-02-22] MEDS: HYDROGEL DRESSING 90 GM TUBE TP SCH (09:28)
[2019-02-22] MEDS ORDERED: MIDAZOLAM HCL 5MG/ML VIAL 25 MG/5 ML VIAL IV ONE (09:30)
[2019-02-22] MEDS ORDERED: NALOXONE PREFILLED SYRINGE 2 MG/2 ML SYRINGE IV ONE (09:30)
[2019-02-22] MEDS ORDERED: FENTANYL PF 250MCG/5ML AMPUL IV ONE (09:30)
[2019-02-22] MEDS: HYDROCODONE/APAP 5/325MG 1 EACH TABLET PO PRN (16:33)
[2019-02-22 16:36] VITALS: BP 107/69
[2019-02-22] MEDS: INSULIN REGULAR, HUMAN 100 UNIT/ML 3 ML VIAL SQ PRN ×2 (17:32→21:49)
[2019-02-22] MEDS: MICAFUNGIN SODIUM 100 MG in IV NS 0.9% 100 ML IV SCH (17:54)
--- NOTE | 2019-02-22 18:39 | NUR ---
RN closing notes Patient remains on room air, no sob noted, patient denies pain at this time. Remains a/o x4, with ileostomy bag, no redness or warmth on the site, patient denies pain at the site. Emptied the bag every few hours. Patient s/p CT guided abscess drainage-peritoneal carcinomatosis mass. Awaiting results at this time for cytology. Bed at the lowest setting, call light within reach, side rails up x2. Will give report to NOC RN for SADIA bedside.
--- NOTE | 2019-02-22 19:40 | NUR ---
M/S RN OPENING NOTES PATIENT RECEIVED RESTING IN BED A/O x4. NO SIGNS OF ACUTE DISTRESS, NO SOB NOTED, AND PATIENT ON ROOM AIR. IV SITE LOCATED ON RIGHT FA #20 PATENT AND INTACT, ILEOSTOMY SHOWS NO SIGNS OF INFECTION WITH NO REDNESS OR PAIN AT SITE. SAFETY PRECAUTIONS IN PLACE WITH BED IN LOWEST POSITION, BREAKS ON, AND CALL LIGHT WITHIN REACH. WILL CONTINUE TO MONITOR.
--- NOTE | 2019-02-22 19:43 | NUR ---
MS HERNANDEZ CLOSING NOTES PATIENT RECEIVED RESTING IN BED A/O x4. NO SIGNS OF ACUTE DISTRESS, NO SOB NOTED, AND PATIENT ON ROOM AIR. IV SITE LOCATED ON RIGHT FA #20 PATENT AND INTACT, ILEOSTOMY SHOWS NO SIGNS OF INFECTION WITH NO REDNESS OR PAIN AT SITE. SAFETY PRECAUTIONS IN PLACE WITH BED IN LOWEST POSITION, BREAKS ON, AND CALL LIGHT WITHIN REACH. WILL CONTINUE TO MONITOR. Addendum: 02/23/19 at 0709 by CURTIS SAMUELS RN DUPLICATE ENTRY.
[2019-02-22 20:00] VITALS: BP 114/64
[2019-02-22 20:15] VITALS: BP 114/64
[2019-02-22] MEDS: DOCUSATE SODIUM 100 MG CAPSULE PO SCH (21:41)
[2019-02-23] MEDS: PIPERACILLIN /TAZOBACTAM 2.25 G in IV D5W 50 ML IV SCH (05:04)
[2019-02-23 06:22] LABS: HEMATOCRIT 28 % (39-51); HEMOGLOBIN 9.1 g/dL (13.5-17.5); LYMPHOCYTES # (AUTO) 1.2 /CMM (0.8-4.8); LYMPHOCYTES % (AUTO) 58.5 % (20.0-44.0); MEAN CORPUSCULAR HGB CONC 32 g/dl (31.0-36.0); MEAN CORPUSCULAR VOLUME 87 fL (80-96); MONOCYTES # (AUTO) 0.3 /CMM (0.1-1.30); NEUTROPHILS # (AUTO) 0.4 /CMM (1.8-8.9); NEUTROPHILS % (AUTO) 18.5 % (43.0-81.0); PLATELET COUNT (AUTO) 113 /CMM (150-450); RED BLOOD CELL COUNT(AUTO) 3.23 MIL/uL (4.5-6.0)
[2019-02-23] MEDS: PANTOPRAZOLE 40 MG TABLET.DR PO SCH (06:38)
[2019-02-23] MEDS: BLOOD SUGAR DIAGNOSTIC 1 EACH STRIP IN SCH ×4 (06:44→21:24)
[2019-02-23] MEDS: INSULIN REGULAR, HUMAN 100 UNIT/ML 3 ML VIAL SQ PRN ×3 (06:45→18:19)
[2019-02-23] MEDS: HYDROCODONE/APAP 5/325MG 1 EACH TABLET PO PRN ×3 (06:47→22:19)
--- NOTE | 2019-02-23 07:11 | NUR ---
M/S RN CLOSING NOTES Patient is currently resting in bed on room air a/o x4. No acute distress or sob noted and no complaints of pain. Ileostomy has been emptied total of 1025 mL throughout the night. Safety precautions in place with bed in lowest position, call light within reach, breaks on, and side rails X2. Will endorse to oncoming shift about SADIA.
[2019-02-23 07:47] LABS: EOSINOPHILS % (MANUAL) 1 % (0-4); LYMPHOCYTES % (MANUAL) 69 % (16-48); MONOCYTES % (MANUAL) 7 % (0-11.0); NEUTROPHILS % (MANUAL) 23 (42-76)
[2019-02-23 07:51] LABS: CALCIUM, SERUM 8.7 mg/dL (8.5-10.1); PHOSPHORUS 3.5 mg/dL (2.5-4.9); POTASSIUM 5.3 mmol/L (3.5-5.1)
[2019-02-23 08:00] VITALS: BP 90/52
--- NOTE | 2019-02-23 08:00 | NUR ---
MS RN OPENING NOTES Received Patient resting in bed. A/O x 4. VS stable with no acute distress. Breathing even and unlabored on room air with no respiratory distress. Denies pain. 20g PIV on RFA clean, intact, patent and flushing well. Left Upper Chest HD cath clean and intact. RLQ ileostomy clean, intact and patent. Safety precautions in place. Bed locked and set to lowest position with side rails x 2 up. All needs rendered at this time. Call light within reach. Will continue to monitor.
[2019-02-23 08:06] LABS: CREATININE 7.6 mg/dL (0.6-1.3)
[2019-02-23] MEDS: CALCIUM ACETATE 667 MG TABLET PO SCH ×3 (09:30→18:24)
[2019-02-23] MEDS: AMIODARONE HCL 200 MG TABLET PO SCH ×3 (09:30→17:00)
[2019-02-23] MEDS: LACTOBACILLUS RHAMNOSUS GG 1 EACH CAP.SPRINK PO SCH ×2 (09:30→16:26)
[2019-02-23] MEDS: FERROUS SULFATE (325 MG) 325 MG/TAB TABLET PO SCH ×2 (09:31→16:26)
[2019-02-23] MEDS: DULOXETINE HCL 30 MG CAPSULE.DR PO SCH ×2 (09:31→21:12)
[2019-02-23] MEDS: FOLIC ACID 1 MG TABLET PO SCH (09:31)
[2019-02-23] MEDS: GABAPENTIN 100 MG CAPSULE PO SCH ×3 (09:31→16:26)
[2019-02-23] MEDS: VIT B CMPLX 3/FA/VIT C/BIOTIN 1 TAB TABLET PO SCH (09:31)
[2019-02-23] MEDS: MIDODRINE HCL (5MG) 5 MG TABLET PO SCH ×3 (09:31→16:26)
[2019-02-23] MEDS: HYDROGEL DRESSING 90 GM TUBE TP SCH (09:32)
[2019-02-23] MEDS: PROSOURCE / PROSTAT (PYXIS) 30 ML UDC PO SCH ×3 (09:32→16:27)
[2019-02-23] MEDS ORDERED: SODIUM POLYSTYRENE SULFONATE 15 G/60 ML BOTTLE PO ONE (12:00)
[2019-02-23 16:00] VITALS: BP 74/47
[2019-02-23] MEDS: MICAFUNGIN SODIUM 100 MG in IV NS 0.9% 100 ML IV SCH (18:24)
--- NOTE | 2019-02-23 19:37 | NUR ---
M/S RN OPENING NOTES Patient is currently in bed receiving hemodialysis. He is A/O x4 and able to make needs known. No signs of acute distress, sob, or current complaints of pain. Ileostomy was recently replaced and no signs of redness or pain at site. IV located on right FA #20 and left upper chest HD cath. Safety precautions in place with bed in lowest position, breaks on, and call light within reach. Will continue to monitor. Will continue to monitor.
--- NOTE | 2019-02-23 19:39 | NUR ---
MS RN CLOSING NOTES Patient resting in bed undergoing dialysis at this time. A/O x 4. VS stable with no acute distress. Breathing even and unlabored on room air with no respiratory distress. Denies pain. 20g PIV on RFA clean, intact, patent and flushing well. Left Upper Chest HD cath clean and intact. RLQ ileostomy clean, intact and patent. Safety precautions in place. Bed locked and set to lowest position with side rails x 2 up. All needs rendered at this time. Call light within reach. Will endorse plan of care to oncoming shift.
[2019-02-23 20:00] VITALS: BP 116/77
[2019-02-23] MEDS ORDERED: ALBUMIN 25% 25 GM in PREMIX 1 EA IV PRN (20:00)
[2019-02-23] MEDS: DOCUSATE SODIUM 100 MG CAPSULE PO SCH (21:12)
--- NOTE | 2019-02-23 21:24 | NUR ---
MS RN NOTES Patient dialysis finished with 0 output. Blood sugar was 136 per sliding scale 2 units given.
[2019-02-23] MEDS: *INSULIN REGULAR(HUMULIN R)HUM 100 UNIT/ML VIAL SQ PRN (21:30)
[2019-02-24 06:27] LABS: BASOPHILS % (AUTO) 0.7 % (0.0-2.0); EOSINOPHILS % (AUTO) 3.9 % (0.0-6.0); HEMATOCRIT 26 % (39-51); HEMOGLOBIN 8.6 g/dL (13.5-17.5); LYMPHOCYTES # (AUTO) 1.1 /CMM (0.8-4.8); LYMPHOCYTES % (AUTO) 56.6 % (20.0-44.0); MEAN CORPUSCULAR HGB CONC 33 g/dl (31.0-36.0); MEAN CORPUSCULAR VOLUME 86 fL (80-96); MONOCYTES # (AUTO) 0.3 /CMM (0.1-1.30); MONOCYTES % (AUTO) 13.5 % (2.0-12.0); NEUTROPHILS # (AUTO) 0.5 /CMM (1.8-8.9); NEUTROPHILS % (AUTO) 25.3 % (43.0-81.0); PLATELET COUNT (AUTO) 115 /CMM (150-450); RED BLOOD CELL COUNT(AUTO) 3.04 MIL/uL (4.5-6.0)
[2019-02-24 06:29] LABS: CALCIUM, SERUM 8.5 mg/dL (8.5-10.1); CREATININE 5.7 mg/dL (0.6-1.3); MAGNESIUM 1.7 mg/dL (1.8-2.4)
[2019-02-24] MEDS: BLOOD SUGAR DIAGNOSTIC 1 EACH STRIP IN SCH ×4 (06:40→21:15)
[2019-02-24] MEDS: INSULIN REGULAR, HUMAN 100 UNIT/ML 3 ML VIAL SQ PRN ×3 (06:42→17:12)
--- NOTE | 2019-02-24 06:51 | NUR ---
MS RN CLOSING NOTES Patient is resting in bed A/O x 4. No acute distress and no complaints of pain. Breathing even and unlabored on room air with no respiratory distress. IV located on RFA clean 20 g, intact, patent and flushing well. Left Upper Chest HD cath clean and intact. RLQ ileostomy clean, intact and patent emptied 550 mL. Safety precautions in place with bed in lowest position, breaks on, and call light within reach. Will continue to monitor. Patient kept clean and dry with all needs attended to. Will endorse to oncoming nurse about pete.
[2019-02-24] MEDS: PANTOPRAZOLE 40 MG TABLET.DR PO SCH (07:30)
[2019-02-24] MEDS ORDERED: MAGNESIUM OXIDE 400 MG TABLET PO ONE (07:30)
[2019-02-24] MEDS: HYDROGEL DRESSING 90 GM TUBE TP SCH (09:00)
[2019-02-24] MEDS: VIT B CMPLX 3/FA/VIT C/BIOTIN 1 TAB TABLET PO SCH (09:23)
[2019-02-24] MEDS: PROSOURCE / PROSTAT (PYXIS) 30 ML UDC PO SCH ×3 (09:23→17:11)
[2019-02-24] MEDS: CALCIUM ACETATE 667 MG TABLET PO SCH ×3 (09:24→18:03)
[2019-02-24] MEDS: DULOXETINE HCL 30 MG CAPSULE.DR PO SCH ×2 (09:24→21:15)
[2019-02-24] MEDS: GABAPENTIN 100 MG CAPSULE PO SCH ×3 (09:24→17:10)
[2019-02-24] MEDS: FERROUS SULFATE (325 MG) 325 MG/TAB TABLET PO SCH ×2 (09:25→17:10)
[2019-02-24] MEDS: AMIODARONE HCL 200 MG TABLET PO SCH ×3 (09:25→17:10)
[2019-02-24] MEDS: LACTOBACILLUS RHAMNOSUS GG 1 EACH CAP.SPRINK PO SCH ×2 (09:25→17:10)
[2019-02-24] MEDS: FOLIC ACID 1 MG TABLET PO SCH (09:26)
[2019-02-24] MEDS: MIDODRINE HCL (5MG) 5 MG TABLET PO SCH ×3 (09:26→17:11)
[2019-02-24] MEDS: HYDROCODONE/APAP 5/325MG 1 EACH TABLET PO PRN ×2 (09:27→18:05)
[2019-02-24] MEDS: MICAFUNGIN SODIUM 100 MG in IV NS 0.9% 100 ML IV SCH (18:03)
--- NOTE | 2019-02-24 18:56 | NUR ---
MS RN CLOSING NOTES Patient resting and watching TV in bed. A/O x 4. VS stable with no acute distress. Breathing even and unlabored on room air with no respiratory distress. Denies pain. 20g PIV on RFA clean, intact, patent and flushing well. Left Upper Chest HD cath clean and intact. RLQ ileostomy clean, intact and patent. Wound dressings clean and intact. Safety precautions in place. Bed locked and set to lowest position with side rails x 2 up. All needs rendered at this time. Call light within reach. Will endorse plan of care to oncoming shift.
--- NOTE | 2019-02-24 19:45 | NUR ---
MS RN NOTES RECEIVED ON BED A/O X4,BREATHING REGULAR,NOT IN ANY FORM OF RESPIRATORY DISTRESS.WITH RIGHT UPPER CHEST CATHETER FOR HD ACCESS.,RIGHT FA SALINE LOCK FOR MEDS.WITH ILEOSTOMY BAG DRAINING BLACKISH COLOR.NO COMPLAINTS AT THE MOMENT.CALL LIGHT IN REACH,NEEDS ANTICIPATED.
[2019-02-24 20:00] VITALS: BP 119/72
[2019-02-24] MEDS: DOCUSATE SODIUM 100 MG CAPSULE PO SCH (21:15)
--- NOTE | 2019-02-24 21:20 | NUR ---
MS RN NOTES ACCU-CHECK BLOOD SUGAR CHECK 86,NO INSULIN COVERAGE,GIVEN SNACKS AT BEDSIDE
--- NOTE | 2019-02-25 05:30 | NUR ---
MS RN NOTES ACCU-CHECK BLOOD SUGAR CHECK 140,WILL COVER WITH HUMULIN R 2 UNITS PER SLIDING SCALE.
[2019-02-25] MEDS: HYDROCODONE/APAP 5/325MG 1 EACH TABLET PO PRN ×2 (06:06→18:16)
--- NOTE | 2019-02-25 06:17 | NUR ---
MS RN NOTES C/O LOWER BACK PAIN,MEDICATED WITH NORCO 5/325MG,1 TAB PO GIVEN FOR PAIN SCALE OF 6/10
--- NOTE | 2019-02-25 06:27 | NUR ---
MS RN NOTES NO SIGNIFICANT CHANGE IN STATUS OVERNIGHT.BACK PAIN MANAGE WITH NORCO AND ITS EFFECTIVE PER PATIENT.ILEOSTOMY WITH 300ML OUTPUT,OFFERED TO EMPTY IT BUT REFUSED,LIVER DRAINAGE EMPTY.IN NO ACUTE DISTRESS.WILL ENDORSE TO DAY NURSE FOR SADIA.
[2019-02-25 07:03] LABS: BASOPHILS % (AUTO) 0.7 % (0.0-2.0); EOSINOPHILS % (AUTO) 4.2 % (0.0-6.0); HEMATOCRIT 27 % (39-51); HEMOGLOBIN 8.9 g/dL (13.5-17.5); LYMPHOCYTES # (AUTO) 1.5 /CMM (0.8-4.8); LYMPHOCYTES % (AUTO) 46.7 % (20.0-44.0); MEAN CORPUSCULAR HGB CONC 33 g/dl (31.0-36.0); MEAN CORPUSCULAR VOLUME 86 fL (80-96); MONOCYTES # (AUTO) 0.4 /CMM (0.1-1.30); MONOCYTES % (AUTO) 12.1 % (2.0-12.0); NEUTROPHILS # (AUTO) 1.2 /CMM (1.8-8.9); NEUTROPHILS % (AUTO) 36.3 % (43.0-81.0); PLATELET COUNT (AUTO) 137 /CMM (150-450); RED BLOOD CELL COUNT(AUTO) 3.16 MIL/uL (4.5-6.0); WHITE BLOOD COUNT (AUTO) 3.3 K/uL (4.3-11.0)
[2019-02-25] MEDS: BLOOD SUGAR DIAGNOSTIC 1 EACH STRIP IN SCH ×4 (07:21→20:56)
[2019-02-25] MEDS: INSULIN REGULAR, HUMAN 100 UNIT/ML 3 ML VIAL SQ PRN ×3 (07:25→18:25)
[2019-02-25 07:46] LABS: CALCIUM, SERUM 8.4 mg/dL (8.5-10.1); CREATININE 7.1 mg/dL (0.6-1.3); MAGNESIUM 1.7 mg/dL (1.8-2.4)
[2019-02-25 08:17] VITALS: BP 126/74
[2019-02-25] MEDS: AMIODARONE HCL 200 MG TABLET PO SCH ×3 (09:00→17:00)
[2019-02-25] MEDS: FOLIC ACID 1 MG TABLET PO SCH (09:37)
[2019-02-25] MEDS: DULOXETINE HCL 30 MG CAPSULE.DR PO SCH ×2 (09:37→20:56)
[2019-02-25] MEDS: MIDODRINE HCL (5MG) 5 MG TABLET PO SCH ×3 (09:37→17:09)
[2019-02-25] MEDS: FERROUS SULFATE (325 MG) 325 MG/TAB TABLET PO SCH ×2 (09:37→17:09)
[2019-02-25] MEDS: LACTOBACILLUS RHAMNOSUS GG 1 EACH CAP.SPRINK PO SCH ×2 (09:37→17:09)
[2019-02-25] MEDS: GABAPENTIN 100 MG CAPSULE PO SCH ×3 (09:38→17:09)
[2019-02-25] MEDS: PROSOURCE / PROSTAT (PYXIS) 30 ML UDC PO SCH ×3 (09:38→17:10)
[2019-02-25] MEDS: VIT B CMPLX 3/FA/VIT C/BIOTIN 1 TAB TABLET PO SCH (09:38)
[2019-02-25] MEDS: CALCIUM ACETATE 667 MG TABLET PO SCH ×3 (09:45→17:09)
[2019-02-25] MEDS: PANTOPRAZOLE 40 MG TABLET.DR PO SCH (09:45)
[2019-02-25] MEDS: HYDROGEL DRESSING 90 GM TUBE TP SCH (10:34)
[2019-02-25] MEDS ORDERED: MAGNESIUM OXIDE 400 MG TABLET PO ONE (13:00)
--- NOTE | 2019-02-25 14:20 | NUR ---
HAVING DIALYSIS,BP TENDS TO RUN LOW SO PROAMITINE GIVEN AND CORDARONE HELD.LRG. AMT. OF LIGHT BROWN LOODE STOOL FROM ILEOSTOMY.SO FAR BAG EMPTIED X2 TODAY.
--- NOTE | 2019-02-25 15:30 | NUR ---
DIALYSIS COMPLETE. BP AT END 135/72,HEART RATE 66.
--- NOTE | 2019-02-25 16:23 | NUR ---
transferred via bed to rm.[id number].made comfortable.call darden within reach.
[2019-02-25 17:08] VITALS: BP 115/63
--- NOTE | 2019-02-25 18:07 | NUR ---
PT. GETTING A LITTLE ANXIOUS,REQUESTS A NORCO,APPETITE GOOD
[2019-02-25] MEDS: MICAFUNGIN SODIUM 100 MG in IV NS 0.9% 100 ML IV SCH (18:26)
--- NOTE | 2019-02-25 19:19 | NUR ---
MEDICATED FOR PAIN IN BACK AND TAIL BONE WITH NORCO.
[2019-02-25 20:00] VITALS: BP 139/80
[2019-02-25] MEDS: DOCUSATE SODIUM 100 MG CAPSULE PO SCH (20:56)
[2019-02-26] MEDS: HYDROCODONE/APAP 5/325MG 1 EACH TABLET PO PRN ×4 (01:17→17:43)
[2019-02-26] MEDS: BLOOD SUGAR DIAGNOSTIC 1 EACH STRIP IN SCH ×4 (06:04→21:24)
[2019-02-26] MEDS: INSULIN REGULAR, HUMAN 100 UNIT/ML 3 ML VIAL SQ PRN ×2 (06:05→13:05)
[2019-02-26 06:39] LABS: BASOPHILS % (AUTO) 0.5 % (0.0-2.0); EOSINOPHILS % (AUTO) 3.7 % (0.0-6.0); HEMATOCRIT 25 % (39-51); HEMOGLOBIN 8.2 g/dL (13.5-17.5); LYMPHOCYTES # (AUTO) 1.3 /CMM (0.8-4.8); LYMPHOCYTES % (AUTO) 41.2 % (20.0-44.0); MEAN CORPUSCULAR HGB CONC 33 g/dl (31.0-36.0); MEAN CORPUSCULAR VOLUME 85 fL (80-96); MONOCYTES # (AUTO) 0.4 /CMM (0.1-1.30); MONOCYTES % (AUTO) 12.1 % (2.0-12.0); NEUTROPHILS # (AUTO) 1.4 /CMM (1.8-8.9); NEUTROPHILS % (AUTO) 42.5 % (43.0-81.0); PLATELET COUNT (AUTO) 131 /CMM (150-450); RED BLOOD CELL COUNT(AUTO) 2.95 MIL/uL (4.5-6.0); WHITE BLOOD COUNT (AUTO) 3.2 K/uL (4.3-11.0)
--- NOTE | 2019-02-26 06:40 | NUR ---
MS RN NOTES AWAKE & RESPONSIVE. NOT IN ANY DISTRESS. NO SOB NOTED. DENIES ANY PAIN OR DISCOMFORT AT THIS TIME. WITH IV-HL PATENT & INTACT. MONITORED ACCORDINGLY. CALL LIGHT WITHIN REACH. BED IN LOWEST POSITION. SR UP X 2 FOR SAFETY. WILL ENDORSE TO NEXT SHIFT.
[2019-02-26 07:26] LABS: CALCIUM, SERUM 8.5 mg/dL (8.5-10.1); CREATININE 5.5 mg/dL (0.6-1.3); MAGNESIUM 1.8 mg/dL (1.8-2.4); PHOSPHORUS 3.3 mg/dL (2.5-4.9); POTASSIUM 4.6 mmol/L (3.5-5.1)
[2019-02-26 08:27] VITALS: BP 112/61
[2019-02-26] MEDS: CALCIUM ACETATE 667 MG TABLET PO SCH ×3 (08:32→17:28)
[2019-02-26] MEDS: LACTOBACILLUS RHAMNOSUS GG 1 EACH CAP.SPRINK PO SCH ×2 (08:32→17:29)
[2019-02-26] MEDS: MIDODRINE HCL (5MG) 5 MG TABLET PO SCH ×3 (08:32→17:28)
[2019-02-26] MEDS: PANTOPRAZOLE 40 MG TABLET.DR PO SCH (08:32)
[2019-02-26] MEDS: PROSOURCE / PROSTAT (PYXIS) 30 ML UDC PO SCH ×3 (08:33→17:27)
[2019-02-26] MEDS: AMIODARONE HCL 200 MG TABLET PO SCH ×3 (08:33→17:29)
[2019-02-26] MEDS: GABAPENTIN 100 MG CAPSULE PO SCH ×3 (08:33→17:28)
[2019-02-26] MEDS: VIT B CMPLX 3/FA/VIT C/BIOTIN 1 TAB TABLET PO SCH (08:33)
[2019-02-26] MEDS: FOLIC ACID 1 MG TABLET PO SCH (08:33)
[2019-02-26] MEDS: FERROUS SULFATE (325 MG) 325 MG/TAB TABLET PO SCH ×2 (08:33→17:29)
[2019-02-26] MEDS: DULOXETINE HCL 30 MG CAPSULE.DR PO SCH ×2 (08:33→21:15)
[2019-02-26] MEDS: HYDROGEL DRESSING 90 GM TUBE TP SCH (08:34)
[2019-02-26 16:18] VITALS: BP 142/86
[2019-02-26] MEDS: MICAFUNGIN SODIUM 100 MG in IV NS 0.9% 100 ML IV SCH ×3 (17:28→21:15)
--- NOTE | 2019-02-26 19:10 | NUR ---
MS RN NOTE RECEIVED PT IN STABLE CONDITION A/O X4, CURRENTLY WATCHING TV. NO SIGNS OF SOB OR DISTRESS, NO COMPLAINTS OF PAIN. OSTOMY NOTED TO BE EMPTY AND INTACT. BACK DRAIN FOR LIVER ABSCESS NOTED AND INTACT. ALL CURRENT NEEDS ATTENDED TO. BED LOW, LOCKED, UPPER RAILS UP, AND CALL LIGHT WITHIN REACH WILL CONT. TO MONITOR.
--- NOTE | 2019-02-26 19:36 | NUR ---
MS RN NOTE NEW ORDER FOR PICC LINE FROM YUMIKO MARSHALL. CHARGE AND DIRECTOR ORANGE MADE AWARE. WILL GET CONSENT FROM PT.
[2019-02-26 20:00] VITALS: BP 149/85
[2019-02-26] MEDS: DOCUSATE SODIUM 100 MG CAPSULE PO SCH (21:15)
[2019-02-26] MEDS: *INSULIN REGULAR(HUMULIN R)HUM 100 UNIT/ML VIAL SQ PRN (21:27)
--- NOTE | 2019-02-26 21:27 | NUR ---
MS RN NOTE ACCUCHECK DONE, NO HS BARCODE FOUND ON REGULAR INSULIN. MANUALLY ADMINISTERED.
[2019-02-27] MEDS: HYDROCODONE/APAP 5/325MG 1 EACH TABLET PO PRN ×3 (00:21→21:12)
--- NOTE | 2019-02-27 02:13 | NUR ---
MS RN NOTE SIRIA PICC LINE PLACED BY MARY CUNNINGHAM. PT TOLERATING WELL. WILL CONT. TO MONITOR.
--- NOTE | 2019-02-27 06:17 | NUR ---
MS RN NOTE PT REMAINS IN STABLE CONDITION A/O X4, CURRENTLY WATCHING TV. NO SIGNS OF SOB OR DISTRESS, NO COMPLAINTS OF PAIN. OSTOMY NOTED TO BE EMPTY AND INTACT. BACK DRAIN FOR LIVER ABSCESS NOTED AND INTACT. ALL CURRENT NEEDS ATTENDED TO. BED LOW, LOCKED, UPPER RAILS UP, AND CALL LIGHT WITHIN REACH WILL CONT. TO MONITOR AND ENDORSE TO NEXT SHIFT FOR SADIA.
[2019-02-27 06:58] LABS: CALCIUM, SERUM 8.4 mg/dL (8.5-10.1); CREATININE 6.7 mg/dL (0.6-1.3); POTASSIUM 5.5 mmol/L (3.5-5.1)
[2019-02-27 07:17] LABS: BASOPHILS % (AUTO) 0.8 % (0.0-2.0); EOSINOPHILS % (AUTO) 4.3 % (0.0-6.0); HEMATOCRIT 27 % (39-51); HEMOGLOBIN 8.7 g/dL (13.5-17.5); LYMPHOCYTES # (AUTO) 1.4 /CMM (0.8-4.8); LYMPHOCYTES % (AUTO) 36.2 % (20.0-44.0); MEAN CORPUSCULAR HGB CONC 33 g/dl (31.0-36.0); MEAN CORPUSCULAR VOLUME 85 fL (80-96); MONOCYTES # (AUTO) 0.4 /CMM (0.1-1.30); MONOCYTES % (AUTO) 10.1 % (2.0-12.0); NEUTROPHILS # (AUTO) 1.9 /CMM (1.8-8.9); NEUTROPHILS % (AUTO) 48.6 % (43.0-81.0); PLATELET COUNT (AUTO) 171 /CMM (150-450); RED BLOOD CELL COUNT(AUTO) 3.13 MIL/uL (4.5-6.0); WHITE BLOOD COUNT (AUTO) 3.9 K/uL (4.3-11.0)
[2019-02-27] MEDS: BLOOD SUGAR DIAGNOSTIC 1 EACH STRIP IN SCH ×4 (07:30→22:16)
--- NOTE | 2019-02-27 07:50 | NUR ---
MS RN RECEIVED ON BED, AWAKE,ALERT,ORIENTED X4,NOT IN ANY FORM OF DISTRESS, RESPIRATIONS EVEN AND UNLABORED,NO SOB NOTED, DENIES PAIN AT THIS T ME,COLOSTOMY INTACT,ALL NEEDS ATTENDED.
[2019-02-27 08:00] VITALS: BP 127/75
--- NOTE | 2019-02-27 09:00 | NUR ---
MS MARY BREAKFAST SERVED, HELD DUE MEDS AT THIS TIME DUE TO PATIENT WILL HAVE DIALYSIS,ALL NEEDS ATTENDED.
--- NOTE | 2019-02-27 10:00 | NUR ---
MS RN PATIENT'S MEDS GIVEN, DON'T KNOW WHEN IS HD BE DONE.
[2019-02-27] MEDS ORDERED: MICA100V IV (11:37)
[2019-02-27] MEDS: CALCIUM ACETATE 667 MG TABLET PO SCH ×3 (11:49→18:14)
[2019-02-27] MEDS: GABAPENTIN 100 MG CAPSULE PO SCH ×3 (11:49→18:14)
[2019-02-27] MEDS: AMIODARONE HCL 200 MG TABLET PO SCH ×3 (11:49→17:00)
[2019-02-27] MEDS: PANTOPRAZOLE 40 MG TABLET.DR PO SCH (11:49)
[2019-02-27] MEDS: FOLIC ACID 1 MG TABLET PO SCH (11:50)
[2019-02-27] MEDS: VIT B CMPLX 3/FA/VIT C/BIOTIN 1 TAB TABLET PO SCH (11:50)
[2019-02-27] MEDS: MIDODRINE HCL (5MG) 5 MG TABLET PO SCH ×3 (11:50→18:15)
[2019-02-27] MEDS: DULOXETINE HCL 30 MG CAPSULE.DR PO SCH ×2 (11:50→20:32)
[2019-02-27] MEDS: LACTOBACILLUS RHAMNOSUS GG 1 EACH CAP.SPRINK PO SCH ×2 (11:50→18:14)
[2019-02-27] MEDS: FERROUS SULFATE (325 MG) 325 MG/TAB TABLET PO SCH ×2 (11:50→18:14)
[2019-02-27] MEDS: PROSOURCE / PROSTAT (PYXIS) 30 ML UDC PO SCH ×3 (11:52→18:15)
--- NOTE | 2019-02-27 12:00 | NUR ---
MS HERNANDEZ BS - 132 - PATIENT REFUSED TO BE COVER FOR 132.
--- NOTE | 2019-02-27 14:00 | NUR ---
MS RN PATIENT STARTED ON HD AT THIS TIME,ALL NEEDS ATTENDED.
--- NOTE | 2019-02-27 14:05 | NUR ---
MS RN DUE MEDS HELD AT THIS TIME,PATIENT ON HD.
--- NOTE | 2019-02-27 17:40 | NUR ---
ms hylton hd done with 1000ml output,tolerated well.
--- NOTE | 2019-02-27 18:00 | NUR ---
ms hylton bs - 165-4 units regular insulin given.
[2019-02-27] MEDS: INSULIN REGULAR, HUMAN 100 UNIT/ML 3 ML VIAL SQ PRN (18:16)
[2019-02-27] MEDS: HYDROGEL DRESSING 90 GM TUBE TP SCH (18:39)
--- NOTE | 2019-02-27 18:42 | NUR ---
rn on bed, patient for discharge at 10pm.
--- NOTE | 2019-02-27 19:31 | NUR ---
MS RN NOTES PATIENT IN BED AWAKE, ALERT AND ORIENTED X 4. BREATHING EVEN AND UNLABORED ON ROOM AIR. DENIES ACUTE RESPIRATORY DISTRESS, NO ACUTE PAIN. PICC ON RIGHT UPPER ARM SALINE LOCK, CLEAN, DRY AND INTACT. SHOWS NO SIGNS OF INFILTRATION NO REDNESS. RLQ ILEOSTOMY CLEAN DRY AND INTACT. SAFETY PRECAUTION IN PLACE. BED IN LOWEST POSITION LOCKED AND CALL LIGHT KEPT WITHIN REACH. WILL CONTINUE TO MONITOR.
[2019-02-27 20:00] VITALS: BP 125/71
[2019-02-27] MEDS: MICAFUNGIN SODIUM 100 MG in IV NS 0.9% 100 ML IV SCH (20:33)
--- NOTE | 2019-02-27 21:12 | NUR ---
MS RN NOTES PATIENT COMPLAINED OF PAIN 12/01. GIVEN NORCO ORDERED. WILL CONTINUE TO MONITOR.
[2019-02-27] MEDS: DOCUSATE SODIUM 100 MG CAPSULE PO SCH (22:00)
[2019-02-27] MEDS: *INSULIN REGULAR(HUMULIN R)HUM 100 UNIT/ML VIAL SQ PRN (22:08)
--- NOTE | 2019-02-27 22:15 | NUR ---
MS RN NOTES PATIENT DISCHARGED ON 2214. LEFT WITH STABLE VITALS. ID BAND TAKEN OFF. PICC LINE ON RIGHT UPPER ARM SALINE IS CLEAN DRY AND FLUSHED. LEFT WITH AMBULANCE TO BE TAKEN TO [facility]. DISCHARGE INSTRUCTION GIVEN AND PATIENT STATED UNDERSTANDING. NO NEW SKIN BREAKDOWNS. NO MISSING BELONGINGS. DOC IS AWARE OF DISCHARGE.
[2019-04-01] MEDS ORDERED: ASCO500T9 PO (11:55)
[2019-04-07] MEDS ORDERED: RXVAN XX (11:10)
== END 2019-02-27 22:20 | DRG 853 ==
LOC: ER 09:48 → TELE 12:11 → MED 02-18 08:12
PROVIDERS: ADMIT Student in an Organized Health Care Education/Training Program; ATTEND Nurse Practitioner Acute Care
PROC: 5A1D70Z Performance of Urinary Filtration, Intermittent, Less than 6 Hours Per Day (ICD-10-PCS; 2019-02-17)
PROC: 0JB70ZZ Excision of Back Subcutaneous Tissue and Fascia, Open Approach (ICD-10-PCS; principal; 2019-02-19)
PROC: 0W9G3ZZ Drainage of Peritoneal Cavity, Percutaneous Approach (ICD-10-PCS; 2019-02-22)
PROC: B548ZZA Ultrasonography of Superior Vena Cava, Guidance (ICD-10-PCS; 2019-02-27)
PROC: 02HV33Z Insertion of Infusion Device into Superior Vena Cava, Percutaneous Approach (ICD-10-PCS; 2019-02-27)
DX: A41.9 Sepsis, unspecified organism (principal); L89.213 Pressure ulcer of right hip, stage 3; L89.153 Pressure ulcer of sacral region, stage 3; N18.6 End stage renal disease; K75.0 Abscess of liver; I13.2 Hypertensive heart and chronic kidney disease with heart failure and with stage 5 chronic kidney disease, or end stage renal disease; D68.59 Other primary thrombophilia; D61.818 Other pancytopenia; E87.1 Hypo-osmolality and hyponatremia; Z68.44 Body mass index [BMI] 60.0-69.9, adult; E87.2 Acidosis; L97.929 Non-pressure chronic ulcer of unspecified part of left lower leg with unspecified severity; I50.42 Chronic combined systolic (congestive) and diastolic (congestive) heart failure; E44.0 Moderate protein-calorie malnutrition; E87.5 Hyperkalemia; I25.10 Atherosclerotic heart disease of native coronary artery without angina pectoris; M19.90 Unspecified osteoarthritis, unspecified site; Z93.2 Ileostomy status; Z95.810 Presence of automatic (implantable) cardiac defibrillator; J44.9 Chronic obstructive pulmonary disease, unspecified; E88.09 Other disorders of plasma-protein metabolism, not elsewhere classified; R53.1 Weakness; Z99.2 Dependence on renal dialysis; E11.65 Type 2 diabetes mellitus with hyperglycemia; L98.8 Other specified disorders of the skin and subcutaneous tissue; S31.20XA Unspecified open wound of penis, initial encounter; S61.401A Unspecified open wound of right hand, initial encounter; X58.XXXA Exposure to other specified factors, initial encounter; Y93.9 Activity, unspecified; Y92.129 Unspecified place in nursing home as the place of occurrence of the external cause; E11.40 Type 2 diabetes mellitus with diabetic neuropathy, unspecified; E11.610 Type 2 diabetes mellitus with diabetic neuropathic arthropathy; M10.9 Gout, unspecified; E11.51 Type 2 diabetes mellitus with diabetic peripheral angiopathy without gangrene; E11.621 Type 2 diabetes mellitus with foot ulcer; L97.519 Non-pressure chronic ulcer of other part of right foot with unspecified severity; E11.622 Type 2 diabetes mellitus with other skin ulcer; K44.9 Diaphragmatic hernia without obstruction or gangrene; Z90.49 Acquired absence of other specified parts of digestive tract; G89.29 Other chronic pain; F17.210 Nicotine dependence, cigarettes, uncomplicated; E11.42 Type 2 diabetes mellitus with diabetic polyneuropathy; E11.22 Type 2 diabetes mellitus with diabetic chronic kidney disease; K21.9 Gastro-esophageal reflux disease without esophagitis; K29.60 Other gastritis without bleeding; K29.80 Duodenitis without bleeding; Z79.4 Long term (current) use of insulin
CPT/HCPCS: 36415; 36569; 71045-TC; 75989; 75989-TC; 80048-TC; 80061-TC; 80076-TC; 80202-TC; 82105; 82378; 82962-TC; 83605-TC; 83735-TC; 84100-TC; 84443-TC; 84484-TC; 85025-TC; 85610-TC; 85730-TC; 86301; 86706; 87040-TC; 87070-TC; 87075-TC; 87081-TC; 87102-TC; 87340; 87806; 88112-TC; 88305-TC; 88312-TC; 90935-TC; 97110-TC; 97112-TC; 97116-TC; 97530-TC; A4216; A6248; A6253; A6403; C1751; G0378; J1815; J2248; J2250; J2310; J2543; J3010; J3370; J7030; J7050; J7060; P9047; Q9967

== ENCOUNTER 2019-04-01 11:37 | Inpatient (IN) | payer BC, OTHER ==
[~2019-04-01] VITALS: Ht 175.3 cm; Wt 61.7 kg
[~2019-04-01 11:37] MED LIST changes: +AMIN887L PO; +MICA100V IV; -PREG100C55 PO
--- NOTE | 2019-04-01 11:42 | NUR ---
AAOx3 SANTIAGO from [email or web address] for Abnormal LAB WBC=17.6. Decubitus on sacral area, diabetic ulcer on bilateral lower extremities. RR is even and unlabored with nad noted. Skin is warm and dry. Awaiting md for lele. Addendum: 04/01/19 at 1154 by JUSTA correction: WBC=17.3 instead of 17.6
[2019-04-01] MEDS ORDERED: ASCO-352 PO (11:55)
[2019-04-01] MEDS ORDERED: SEVE800T8 PO (11:55)
[2019-04-01] MEDS ORDERED: OMEP20CA15 PO (11:55)
[2019-04-01] MEDS ORDERED: MIRT15TA7 PO (11:55)
[2019-04-01] MEDS ORDERED: ZINC1CAP2 PO (11:55)
[2019-04-01] MEDS ORDERED: MICA100V IV (11:55)
[2019-04-01] MEDS ORDERED: IV NS 0.9% 500 ML BAG IV ONE (12:00)
--- NOTE | 2019-04-01 12:01 | NUR ---
CALLED FOR TELE BED AND TURNED IN MOVE SHEET TO ADMITTING
--- NOTE | 2019-04-01 12:07 | NUR ---
PER PATIENT HE NO LONGER PRODUCE URINE, MADE AWARE
[2019-04-01 12:23] LABS: BASOPHILS # (AUTO) 0.1 /CMM (0.0-0.2); BASOPHILS % (AUTO) 0.9 % (0.0-2.0); EOSINOPHILS % (AUTO) 0.8 % (0.0-6.0); HEMATOCRIT 35 % (39-51); LYMPHOCYTES # (AUTO) 2.1 /CMM (0.8-4.8); LYMPHOCYTES % (AUTO) 13.5 % (20.0-44.0); MEAN CORPUSCULAR HGB CONC 29 g/dl (31.0-36.0); MEAN CORPUSCULAR VOLUME 92 fL (80-96); MONOCYTES % (AUTO) 6.5 % (2.0-12.0); NEUTROPHILS # (AUTO) 12.4 /CMM (1.8-8.9); NEUTROPHILS % (AUTO) 78.3 % (43.0-81.0); PLATELET COUNT (AUTO) 394 /CMM (150-450); RED BLOOD CELL COUNT(AUTO) 3.78 MIL/uL (4.5-6.0); WHITE BLOOD COUNT (AUTO) 15.8 K/uL (4.3-11.0)
[2019-04-01 12:39] LABS: ALANINE AMINOTRANSFERASE 10 U/L (12-78); ALKALINE PHOSPHATASE 165 U/L (46-116); ASPARTATE AMINOTRANSFERASE 7 U/L (15-37); BILIRUBIN,DIRECT 0.1 mg/dL (0.0-0.2); BILIRUBIN,TOTAL 0.3 mg/dL (0.2-1.0); CARBON DIOXIDE 13 mmol/L (21-32); CHLORIDE 98 mmol/L (98-107); POTASSIUM 5.4 mmol/L (3.5-5.1); SODIUM SERUM 127 mmol/L (136-145); TOTAL PROTEIN, SERUM 6.8 g/dL (6.4-8.2); UREA NITROGEN, BLOOD 57 mg/dL (7-18)
[2019-04-01 12:40] LABS: CREATININE 7.9 mg/dL (0.6-1.3)
[2019-04-01 12:41] LABS: GLUCOSE 400 mg/dL (74-106)
--- NOTE | 2019-04-01 12:54 | NUR ---
CALLED [facility] ITS GEOVANNI
[2019-04-01] MEDS ORDERED: CEFTRIAXONE 1GM BAG (ER ONLY) 50 ML IV ONE ×2 (13:00→13:13)
[2019-04-01] MEDS ORDERED: INSULIN REGULAR, HUMAN 100 UNIT/ML 10 ML VIAL SQ ONE (13:00)
[2019-04-01] MEDS ORDERED: AZITHROMYCIN 500 MG in IV D5W 250 ML IV ONE (13:00)
--- NOTE | 2019-04-01 13:12 | NUR ---
[facility] BED 114-1
[2019-04-01] MEDS ORDERED: INSULIN REGULAR, HUMAN 100 UNIT/ML 10 ML VIAL ONE (13:14)
--- NOTE | 2019-04-01 13:46 | NUR ---
REPORT GIVEN TO LEONOR HERNANDEZ.
--- NOTE | 2019-04-01 14:15 | NUR ---
GUITAR REPAIR TECHNICIAN NOTES PATIENT RECIEVED FROM ER. BY BED . PATIENT A/O X4, PATIENT IS IN ROOM AIR AND SATURATING AT 95% PATIENT PATIENT STATE THAT HE HAS SOB. NO SIGNS OF ACUTE DISTRESS. PATIENT IN ON TELE MONITOR . PATIENT DOES HAVE ARCORDIAN DRAIN, AND COLOSTOMY BAG. INTACT AND PATENT. PATIENT HAS RIGHT UPPER PICC PATENT AND INTACT. PATIENT HAS SEVERE WEAKNESS ON LOWER EXTREMITIES. WOUNDS PRESENT ON SACRAL, L HEEL , R TOE. BED LOCKED AND LOWEST POSITION CALL LIGHT WITH IN REACH ALL SAFETY PRECAUTIONS IMPLEMENTED PER HOSPITAL POLICY
--- NOTE | 2019-04-01 14:22 | NUR ---
TRANSFERRED TO [facility] 114-2 VIA ACLS PROTOCOL. IN STABLE CONDITION. NO DISTRESS NOTED.
[2019-04-01] MEDS ORDERED: MAG HYDROX/AL HYDROX/SIMETH 30 ML UDC PO PRN (15:30)
[2019-04-01] MEDS ORDERED: ONDANSETRON HCL/PF 4 MG/2 ML VIAL IVP PRN (15:30)
[2019-04-01] MEDS ORDERED: MAGNESIUM HYDROXIDE 30 ML UDC PO PRN (15:30)
[2019-04-01] MEDS ORDERED: Z GUARD REMEDY 2 OZ OINT TP PRN (15:30)
[2019-04-01] MEDS ORDERED: HYDROCODONE/APAP 5/325MG 1 EACH TABLET PO PRN (15:30)
[2019-04-01] MEDS ORDERED: ACETAMINOPHEN 325 MG TABLET PO PRN (15:30)
[2019-04-01] MEDS ORDERED: DEXTROSE 50%-WATER 50 ML DISP.SYRIN IV PRN (15:30)
[2019-04-01] MEDS ORDERED: VANCOMYCIN 1.25 GM in IV D5W 250 ML IV ONE (16:00)
[2019-04-01] MEDS ORDERED: FEE PK DOSING 1 MIN EA MC ONE (16:30)
[2019-04-01] MEDS: FERROUS SULFATE (325 MG) 325 MG/TAB TABLET PO SCH (17:00)
[2019-04-01] MEDS ORDERED: BISACODYL SUPP (10 MG) 10 MG/SUPP.RECT SUPP.RECT RC PRN (17:00)
[2019-04-01] MEDS: AMIODARONE HCL 200 MG TABLET PO SCH (17:00)
[2019-04-01] MEDS: GABAPENTIN 100 MG CAPSULE PO SCH (17:00)
[2019-04-01] MEDS: ACIDOPHILUS/BULGARICUS 1 EACH TAB.CHEW PO SCH (17:00)
[2019-04-01] MEDS ORDERED: NA PHOS,M-B/NA PHOS,DI-BA 1 EA ENEMA RC PRN (17:00)
[2019-04-01] MEDS: PROSOURCE / PROSTAT (PYXIS) 30 ML UDC PO SCH (18:00)
[2019-04-01] MEDS: CALCIUM ACETATE 667 MG TABLET PO SCH (18:00)
[2019-04-01] MEDS: MIDODRINE HCL (5MG) 5 MG TABLET PO SCH (18:00)
[2019-04-01] MEDS: SEVELAMER CARBONATE 800 MG TABLET PO SCH (18:00)
--- NOTE | 2019-04-01 18:00 | NUR ---
SUPPLY ASSISTANT NOTES PATIENT BS 289 . PATIENT REFUSED INSULIN. EXPLAINED RISK AND BENEFITS ATTEMPTED 3X
[2019-04-01] MEDS: BLOOD SUGAR DIAGNOSTIC 1 EACH STRIP IN SCH ×2 (18:49→22:23)
[2019-04-01] MEDS: PIPERACILLIN /TAZOBACTAM 3.375 G in IV D5W 50 ML IV SCH (18:50)
--- NOTE | 2019-04-01 19:25 | NUR ---
RN OPEN NOTES RECEIVED PATIENT RESTING IN BED, EASILY AROUSABLE. A/O X4. NO SIGNS OF DISTRESS OR DISCOMFORT. BREATHING EVEN AND UNLABORED. HAS SIRIA PICC WITH NS INFUSING, PATENT AND INTACT, NO SIGNS OF REDNESS OR INFILTRATION. ON TELE MONITORING WITH SR 66 NOTED. HAS R ABD ACCORDIAN DRAIN INTACT, WITH APPROX 10ML OF SEROUS FLUID. HAS R ABD ILEOSTOMY INTACT. BED IN LOW LOCKED POSITION WITH SIDE RAILS X2. CALL LIGHT WITHIN REACH. WILL CONTINUE TO MONITOR.
--- NOTE | 2019-04-01 19:30 | NUR ---
PATIENT A/O X4, PATIENT IS IN ROOM AIR AND SATURATING AT 95% PATIENT PATIENT STATE THAT HE HAS SOB. NO SIGNS OF ACUTE DISTRESS. PATIENT IN ON TELE MONITOR . PATIENT DOES HAVE ARCORDIAN DRAIN, AND COLOSTOMY BAG. INTACT AND PATENT. PATIENT HAS RIGHT UPPER PICC PATENT AND INTACT. PATIENT HAS SEVERE WEAKNESS ON LOWER EXTREMITIES. WOUNDS PRESENT ON SACRAL, L HEEL , R TOE. BED LOCKED AND LOWEST POSITION CALL LIGHT WITH IN REACH. 2 X RAILS UP ALL SAFETY PRECAUTIONS IMPLEMENTED PER HOSPITAL POLICY
[2019-04-01 20:00] VITALS: BP 90/44
[2019-04-01] MEDS: MICAFUNGIN SODIUM 100 MG in IV NS 0.9% 100 ML IV SCH (21:59)
[2019-04-01] MEDS: DOCUSATE SODIUM 100 MG CAPSULE PO SCH (22:00)
[2019-04-01] MEDS: MIRTAZAPINE 15 MG TABLET PO SCH (22:00)
[2019-04-01] MEDS ORDERED: MICAFUNGIN SODIUM 100 MG IV SCH (22:00)
[2019-04-01] MEDS: IV NS 0.9% 1,000 ML IV PRN (22:26)
[2019-04-01] MEDS: IBUPROFEN 400 MG TABLET PO PRN (23:38)
[2019-04-02] VITALS (7 sets, daily range): BP systolic 74–139; BP diastolic 39–100
[2019-04-02] MEDS: PIPERACILLIN /TAZOBACTAM 3.375 G in IV D5W 50 ML IV SCH ×3 (01:01→17:55)
[2019-04-02] MEDS: BLOOD SUGAR DIAGNOSTIC 1 EACH STRIP IN SCH ×4 (06:53→22:14)
[2019-04-02 07:07] LABS: ALBUMIN 1.8 g/dL (3.4-5.0); BILIRUBIN,TOTAL 0.3 mg/dL (0.2-1.0); CALCIUM, SERUM 9.9 mg/dL (8.5-10.1); PHOSPHORUS 5.4 mg/dL (2.5-4.9); POTASSIUM 5.4 mmol/L (3.5-5.1); TOTAL PROTEIN, SERUM 6.1 g/dL (6.4-8.2)
[2019-04-02 07:08] LABS: CREATININE 8.4 mg/dL (0.6-1.3)
[2019-04-02 07:10] LABS: BASOPHILS # (AUTO) 0.2 /CMM (0.0-0.2); BASOPHILS % (AUTO) 1.2 % (0.0-2.0); EOSINOPHILS % (AUTO) 1.3 % (0.0-6.0); HEMATOCRIT 29 % (39-51); LYMPHOCYTES # (AUTO) 1.5 /CMM (0.8-4.8); MEAN CORPUSCULAR HGB CONC 31 g/dl (31.0-36.0); MEAN CORPUSCULAR VOLUME 89 fL (80-96); MONOCYTES # (AUTO) 0.6 /CMM (0.1-1.30); MONOCYTES % (AUTO) 5.1 % (2.0-12.0); NEUTROPHILS # (AUTO) 10.3 /CMM (1.8-8.9); NEUTROPHILS % (AUTO) 80.4 % (43.0-81.0); PLATELET COUNT (AUTO) 316 /CMM (150-450); RED BLOOD CELL COUNT(AUTO) 3.27 MIL/uL (4.5-6.0); WHITE BLOOD COUNT (AUTO) 12.9 K/uL (4.3-11.0)
--- NOTE | 2019-04-02 07:11 | NUR ---
RN CLOSING NOTES PATIENT RESTING IN BED, EASILY AROUSABLE. A/O X4. NO SIGNS OF DISTRESS OR DISCOMFORT. BREATHING EVEN AND UNLABORED. HAS SIRIA PICC WITH NS INFUSING, PATENT AND INTACT, NO SIGNS OF REDNESS OR INFILTRATION. ON TELE MONITORING WITH SR 60 NOTED. HAS R ABD ACCORDIAN DRAIN INTACT. HAS R ABD ILEOSTOMY INTACT. ALL NEEDS MET. NO SIGNIFICANT CHANGES THROUGH THE NIGHT. BED IN LOW LOCKED POSITION WITH SIDE RAILS X2. CALL LIGHT WITHIN REACH. ENDORSED TO AM SHIFT FOR SADIA.
[2019-04-02 07:30] LABS: THYROID STIMULATING HORMONE 9.576 uIU/mL (0.358-3.74)
--- NOTE | 2019-04-02 07:34 | NUR ---
INITIAL RECEIVED PATIENT RESTING IN BED, EASILY AROUSABLE. A/O X4. NO SIGNS OF DISTRESS OR DISCOMFORT. BREATHING EVEN AND UNLABORED. HAS SIRIA PICC WITH NS INFUSING, PATENT AND INTACT, NO SIGNS OF REDNESS OR INFILTRATION. ON TELE MONITORING WITH SR 60 FDB NOTED. HAS R ABD ACCORDIAN DRAIN INTACT, WITH APPROX 10ML OF SEROUS FLUID. HAS R ABD ILEOSTOMY INTACT. BED IN LOW LOCKED POSITION WITH SIDE RAILS X2. CALL LIGHT WITHIN REACH. WILL CONTINUE TO MONITOR.
[2019-04-02] MEDS: CALCIUM ACETATE 667 MG TABLET PO SCH ×3 (08:39→17:55)
[2019-04-02] MEDS: FERROUS SULFATE (325 MG) 325 MG/TAB TABLET PO SCH ×2 (08:39→17:53)
[2019-04-02] MEDS: ASCORBIC ACID 500 MG TABLET PO SCH (08:39)
[2019-04-02] MEDS: FOLIC ACID 1 MG TABLET PO SCH (08:39)
[2019-04-02] MEDS: ZINC SULFATE 220 MG CAPSULE PO SCH (08:39)
[2019-04-02] MEDS: VIT B CMPLX 3/FA/VIT C/BIOTIN 1 TAB TABLET PO SCH (08:39)
[2019-04-02] MEDS: GABAPENTIN 100 MG CAPSULE PO SCH ×3 (08:40→17:56)
[2019-04-02] MEDS: SEVELAMER CARBONATE 800 MG TABLET PO SCH ×3 (08:40→17:56)
[2019-04-02] MEDS: ACIDOPHILUS/BULGARICUS 1 EACH TAB.CHEW PO SCH ×2 (08:40→17:55)
[2019-04-02] MEDS: AMIODARONE HCL 200 MG TABLET PO SCH ×3 (08:42→17:00)
[2019-04-02] MEDS: MIDODRINE HCL (5MG) 5 MG TABLET PO SCH ×3 (08:42→17:56)
[2019-04-02] MEDS: PANTOPRAZOLE 40 MG TABLET.DR PO SCH ×2 (08:43→08:51)
[2019-04-02] MEDS: PROSOURCE / PROSTAT (PYXIS) 30 ML UDC PO SCH ×3 (08:53→17:57)
[2019-04-02] MEDS ORDERED: IV NS 0.9% 250 ML IV ONE (09:35)
[2019-04-02] MEDS ORDERED: CT SWABBABLE VALVE TRANS SET 1 EA INFUS.SET MC ONE (09:35)
[2019-04-02] MEDS ORDERED: IOHEXOL-300 100 ML VIAL IV ONE (09:35)
[2019-04-02] MEDS ORDERED: NALOXONE HCL 0.4 MG/ML AMPUL IV PRN (11:30)
[2019-04-02] MEDS: HYDROGEL DRESSING 90 GM TUBE TP SCH (12:21)
[2019-04-02] MEDS: *INSULIN REGULAR(HUMULIN R)HUM 100 UNIT/ML VIAL SQ PRN ×3 (12:21→22:13)
[2019-04-02] MEDS ORDERED: PROSOURCE / PROSTAT (PYXIS) 30 ML UDC GT SCH (13:00)
[2019-04-02] MEDS: MORPHINE SULFATE INJ 2 MG/ML DISP.SYRIN IV PRN ×2 (14:25→21:22)
[2019-04-02] MEDS: VANCOMYCIN 500 MG in IV D5W 100 ML IV PRN (14:25)
--- NOTE | 2019-04-02 17:04 | NUR ---
Patient is alert and oriented, he resides at [facility] [phone].He requires assistance with adl's. Receives hemodialysis TThS 12noon at [facility] [phone]. Pcp is Dr. Rowland. Current dc plan is to return to [facility]. Addendum: 04/02/19 at 1704 by LUPE GREGORY RN Amended: Links added.
--- NOTE | 2019-04-02 18:26 | NUR ---
CLOSING PT BACK FROM CAT SCAN RESUMED RENAL DIET ALL MEDICATIONS GIVEN CALLED GEOVANNI HELTON INFORMING HIM OF BLOOD CULTURE RESULTS; GRAM + COCCI IN CLUSTERS WILL GIVEN RN REPORT TO PM SHIFT FOR CONTINUITY OF CARE
--- NOTE | 2019-04-02 19:48 | NUR ---
RN NOTES RECEIVED PATIENT RESTING IN BED, EASILY AROUSABLE. A/O X4. NO SIGNS OF DISTRESS OR DISCOMFORT. BREATHING EVEN AND UNLABORED. HAS SIRIA PICC WITH NS INFUSING, PATENT AND INTACT, NO SIGNS OF REDNESS OR INFILTRATION. ON TELE MONITORING WITH SR 60S NOTED. HAS R ABD ACCORDIAN DRAIN INTACT, WITH APPROX 5ML OF SEROUS FLUID. HAS R ABD ILEOSTOMY INTACT. BED IN LOW LOCKED POSITION WITH SIDE RAILS X2. CALL LIGHT WITHIN REACH. WILL CONTINUE TO MONITOR ACCORDINGLY.
[2019-04-02] MEDS: MICAFUNGIN SODIUM 100 MG in IV NS 0.9% 100 ML IV SCH (21:11)
[2019-04-02] MEDS: MIRTAZAPINE 15 MG TABLET PO SCH (22:21)
[2019-04-02] MEDS: DOCUSATE SODIUM 100 MG CAPSULE PO SCH (22:21)
[2019-04-03] MEDS: PIPERACILLIN /TAZOBACTAM 3.375 G in IV D5W 50 ML IV SCH ×3 (01:30→18:51)
[2019-04-03] MEDS: MORPHINE SULFATE INJ 2 MG/ML DISP.SYRIN IV PRN ×3 (06:38→22:21)
--- NOTE | 2019-04-03 07:26 | NUR ---
RN NOTES ALL NEEDS ATTENDED AND MET, PATIENT RESTING IN BED, EASILY AROUSABLE. A/O X4. NO SIGNS OF DISTRESS OR DISCOMFORT. BREATHING EVEN AND UNLABORED. HAS SIRIA MIDLINE WITH NS INFUSING, PATENT AND INTACT, NO SIGNS OF REDNESS OR INFILTRATION. ON TELE MONITORING WITH SR 66 - 100 NOTED. HAS R ABD ACCORDIAN DRAIN INTACT, WITH APPROX 5ML OF SEROUS FLUID. HAS R ABD ILEOSTOMY INTACT. BED IN LOW LOCKED POSITION WITH SIDE RAILS X2. CALL LIGHT WITHIN REACH. ENDORSED TO AM NURSE FOR SADIA.
--- NOTE | 2019-04-03 07:32 | NUR ---
INITIAL RECEIVED PATIENT RESTING IN BED, EASILY AROUSABLE. A/O X4. NO SIGNS OF DISTRESS OR DISCOMFORT. BREATHING EVEN AND UNLABORED. HAS SIRIA MID-LINE #18G WITH NS INFUSING, PATENT AND INTACT, NO SIGNS OF REDNESS OR INFILTRATION. ON TELE MONITORING WITH SR 76 FDB NOTED. HAS R ABDOMINAL ACCORDION DRAIN INTACT, WITH APPROX 10ML OF SEROUS FLUID. HAS R ABD ILEOSTOMY INTACT. BED IN LOW LOCKED POSITION WITH SIDE RAILS X2. CALL LIGHT WITHIN REACH. WILL CONTINUE TO MONITOR.
[2019-04-03] MEDS: BLOOD SUGAR DIAGNOSTIC 1 EACH STRIP IN SCH ×4 (07:41→20:57)
[2019-04-03 07:44] LABS: HEMATOCRIT 26 % (39-51); HEMOGLOBIN 8.2 g/dL (13.5-17.5); LYMPHOCYTES % (AUTO) 12.5 % (20.0-44.0); MEAN CORPUSCULAR HGB CONC 31 g/dl (31.0-36.0); MEAN CORPUSCULAR VOLUME 88 fL (80-96); NEUTROPHILS % (AUTO) 80.4 % (43.0-81.0); PLATELET COUNT (AUTO) 290 /CMM (150-450); RED BLOOD CELL COUNT(AUTO) 2.99 MIL/uL (4.5-6.0); WHITE BLOOD COUNT (AUTO) 9.7 K/uL (4.3-11.0)
[2019-04-03 07:45] LABS: BASOPHILS # (AUTO) 0.1 /CMM (0.0-0.2); BASOPHILS % (AUTO) 0.6 % (0.0-2.0); LYMPHOCYTES # (AUTO) 1.2 /CMM (0.8-4.8); MONOCYTES # (AUTO) 0.5 /CMM (0.1-1.30); MONOCYTES % (AUTO) 5.5 % (2.0-12.0); NEUTROPHILS # (AUTO) 7.8 /CMM (1.8-8.9)
[2019-04-03] MEDS: INSULIN REGULAR, HUMAN 100 UNIT/ML 3 ML VIAL SQ PRN ×3 (07:52→22:23)
[2019-04-03 08:00] VITALS: BP 86/30
[2019-04-03 08:03] LABS: ALANINE AMINOTRANSFERASE < 6 U/L (12-78); ALBUMIN 1.6 g/dL (3.4-5.0); ALKALINE PHOSPHATASE 121 U/L (46-116); ASPARTATE AMINOTRANSFERASE 6 U/L (15-37); BILIRUBIN,TOTAL 0.3 mg/dL (0.2-1.0); CALCIUM, SERUM 8.6 mg/dL (8.5-10.1); CARBON DIOXIDE 18 mmol/L (21-32); CHLORIDE 104 mmol/L (98-107); CREATININE 6.9 mg/dL (0.6-1.3); GLUCOSE 129 mg/dL (74-106); MAGNESIUM 1.8 mg/dL (1.8-2.4); PHOSPHORUS 3.9 mg/dL (2.5-4.9); POTASSIUM 5.2 mmol/L (3.5-5.1); SODIUM SERUM 134 mmol/L (136-145); TOTAL PROTEIN, SERUM 5.4 g/dL (6.4-8.2); UREA NITROGEN, BLOOD 48 mg/dL (7-18)
[2019-04-03] MEDS: ASCORBIC ACID 500 MG TABLET PO SCH (08:50)
[2019-04-03] MEDS: FOLIC ACID 1 MG TABLET PO SCH (08:50)
[2019-04-03] MEDS: CALCIUM ACETATE 667 MG TABLET PO SCH ×3 (08:50→18:53)
[2019-04-03] MEDS: FERROUS SULFATE (325 MG) 325 MG/TAB TABLET PO SCH ×2 (08:50→19:01)
[2019-04-03] MEDS: MIDODRINE HCL (5MG) 5 MG TABLET PO SCH ×3 (08:51→18:58)
[2019-04-03] MEDS: ACIDOPHILUS/BULGARICUS 1 EACH TAB.CHEW PO SCH ×2 (08:51→18:55)
[2019-04-03] MEDS: GABAPENTIN 100 MG CAPSULE PO SCH ×3 (08:51→19:02)
[2019-04-03] MEDS: PROSOURCE / PROSTAT (PYXIS) 30 ML UDC PO SCH ×3 (08:52→18:53)
[2019-04-03] MEDS: AMIODARONE HCL 200 MG TABLET PO SCH ×3 (08:53→19:01)
[2019-04-03] MEDS: HYDROGEL DRESSING 90 GM TUBE TP SCH (08:55)
[2019-04-03] MEDS: SILVER SULFADIAZINE CREAM 25 GM TUBE TP SCH (08:55)
[2019-04-03] MEDS: ZINC SULFATE 220 MG CAPSULE PO SCH (08:57)
[2019-04-03] MEDS: SEVELAMER CARBONATE 800 MG TABLET PO SCH ×3 (08:58→18:53)
[2019-04-03] MEDS: VIT B CMPLX 3/FA/VIT C/BIOTIN 1 TAB TABLET PO SCH (08:58)
[2019-04-03] MEDS: IV NS 0.9% 1,000 ML IV PRN ×2 (11:30→13:49)
[2019-04-03] MEDS: *INSULIN REGULAR(HUMULIN R)HUM 100 UNIT/ML VIAL SQ PRN (12:22)
[2019-04-03 20:00] VITALS: BP 108/47
[2019-04-03] MEDS: MICAFUNGIN SODIUM 100 MG in IV NS 0.9% 100 ML IV SCH (21:15)
[2019-04-03] MEDS: DOCUSATE SODIUM 100 MG CAPSULE PO SCH (21:15)
[2019-04-03] MEDS: MIRTAZAPINE 15 MG TABLET PO SCH (21:16)
--- NOTE | 2019-04-03 21:43 | NUR ---
PATIENT IS COMPLAINING OF BACK PAIN 10/31 BUT WHEN MEDICATION AVAILABLE PATIENT IS ASLEP/ Addendum: 04/04/19 at 0218 by SHARMILA CRISOSTOMO RN relieved thereafter,asleep
[2019-04-04] MEDS: PIPERACILLIN /TAZOBACTAM 3.375 G in IV D5W 50 ML IV SCH ×3 (01:06→17:31)
[2019-04-04] MEDS: HYDROGEL DRESSING 90 GM TUBE TP SCH (01:53)
--- NOTE | 2019-04-04 02:18 | NUR ---
patient with complaints of pain to the lower back area 10/31 as claimed. medication not yet available . informed about the schedule
[2019-04-04 04:00] VITALS: BP 135/56
[2019-04-04] MEDS: BLOOD SUGAR DIAGNOSTIC 1 EACH STRIP IN SCH ×4 (06:24→21:06)
[2019-04-04] MEDS: PANTOPRAZOLE 40 MG TABLET.DR PO SCH (06:56)
[2019-04-04] MEDS: MORPHINE SULFATE INJ 2 MG/ML DISP.SYRIN IV PRN ×4 (07:03→21:11)
[2019-04-04 08:00] VITALS: BP 129/44
[2019-04-04 08:16] LABS: BASOPHILS # (AUTO) 0.1 /CMM (0.0-0.2); BASOPHILS % (AUTO) 1.4 % (0.0-2.0); EOSINOPHILS % (AUTO) 1.4 % (0.0-6.0); HEMATOCRIT 25 % (39-51); HEMOGLOBIN 7.8 g/dL (13.5-17.5); LYMPHOCYTES # (AUTO) 1.5 /CMM (0.8-4.8); LYMPHOCYTES % (AUTO) 15.1 % (20.0-44.0); MEAN CORPUSCULAR HGB CONC 32 g/dl (31.0-36.0); MEAN CORPUSCULAR VOLUME 88 fL (80-96); MONOCYTES # (AUTO) 0.8 /CMM (0.1-1.30); MONOCYTES % (AUTO) 7.8 % (2.0-12.0); NEUTROPHILS # (AUTO) 7.5 /CMM (1.8-8.9); NEUTROPHILS % (AUTO) 74.3 % (43.0-81.0); PLATELET COUNT (AUTO) 269 /CMM (150-450); RED BLOOD CELL COUNT(AUTO) 2.79 MIL/uL (4.5-6.0); WHITE BLOOD COUNT (AUTO) 10.1 K/uL (4.3-11.0)
[2019-04-04 08:27] LABS: CALCIUM, SERUM 8.8 mg/dL (8.5-10.1); MAGNESIUM 1.7 mg/dL (1.8-2.4); PHOSPHORUS 4.5 mg/dL (2.5-4.9); POTASSIUM 5.9 mmol/L (3.5-5.1)
[2019-04-04 08:29] LABS: CREATININE 7.7 mg/dL (0.6-1.3)
[2019-04-04] MEDS: SEVELAMER CARBONATE 800 MG TABLET PO SCH ×3 (09:36→18:06)
[2019-04-04] MEDS: FOLIC ACID 1 MG TABLET PO SCH (09:36)
[2019-04-04] MEDS: CALCIUM ACETATE 667 MG TABLET PO SCH ×3 (09:36→18:06)
[2019-04-04] MEDS: VIT B CMPLX 3/FA/VIT C/BIOTIN 1 TAB TABLET PO SCH (09:36)
[2019-04-04] MEDS: AMIODARONE HCL 200 MG TABLET PO SCH ×3 (09:41→17:30)
[2019-04-04] MEDS: ZINC SULFATE 220 MG CAPSULE PO SCH (09:41)
[2019-04-04] MEDS: FERROUS SULFATE (325 MG) 325 MG/TAB TABLET PO SCH ×2 (09:41→17:24)
[2019-04-04] MEDS: ASCORBIC ACID 500 MG TABLET PO SCH (09:42)
[2019-04-04] MEDS: ACIDOPHILUS/BULGARICUS 1 EACH TAB.CHEW PO SCH ×2 (09:42→17:57)
[2019-04-04] MEDS: GABAPENTIN 100 MG CAPSULE PO SCH ×3 (09:42→17:24)
[2019-04-04] MEDS: MIDODRINE HCL (5MG) 5 MG TABLET PO SCH ×3 (09:42→17:30)
[2019-04-04] MEDS: PROSOURCE / PROSTAT (PYXIS) 30 ML UDC PO SCH ×3 (11:00→17:31)
[2019-04-04] MEDS ORDERED: ALTEPLASE CATHFLO 2 MG/VIAL XX ONE (11:00)
[2019-04-04] MEDS: INSULIN REGULAR, HUMAN 100 UNIT/ML 3 ML VIAL SQ PRN (12:34)
[2019-04-04] MEDS: SILVER SULFADIAZINE CREAM 25 GM TUBE TP SCH (12:37)
--- NOTE | 2019-04-04 12:47 | NUR ---
Prosource was missed at 9 am. Nurse missed dose due to patient care with other patients.
[2019-04-04] MEDS: Magnesium 1GM/D5W 100ML PREMIX 100 ML IV SCH ×2 (13:13→13:25)
--- NOTE | 2019-04-04 15:57 | NUR ---
Ultrasound guided thoracentesis to be done Mon. (04/04/19) due to no radiologist onsite and routine. Spoken to MARY Harvey and she is aware.
[2019-04-04 16:00] VITALS: BP 93/42
--- NOTE | 2019-04-04 19:03 | NUR ---
Patient resting throughout most of shift. Lumbar sacral pain managed with Morphine. He is aware that CT guided drainage scheduled for tomorrow as well as US guided thoracentesis. Repositioned with encouragement. Safety maintained throughout shift.
[2019-04-04 20:00] VITALS: BP_SYST 107; BP_SYST 113; BP_DIAS 47; BP_DIAS 56
[2019-04-04] MEDS: MICAFUNGIN SODIUM 100 MG in IV NS 0.9% 100 ML IV SCH (20:59)
[2019-04-04] MEDS: *INSULIN REGULAR(HUMULIN R)HUM 100 UNIT/ML VIAL SQ PRN (21:02)
[2019-04-04] MEDS: MIRTAZAPINE 15 MG TABLET PO SCH (21:10)
[2019-04-04] MEDS: DOCUSATE SODIUM 100 MG CAPSULE PO SCH (21:11)
--- NOTE | 2019-04-04 23:17 | NUR ---
colostomy care done and cleaned and kept dry.
[2019-04-05] MEDS: PIPERACILLIN /TAZOBACTAM 3.375 G in IV D5W 50 ML IV SCH ×3 (01:18→17:30)
[2019-04-05 04:00] VITALS: BP_SYST 107; BP_SYST 116; BP_DIAS 43; BP_DIAS 48
[2019-04-05] MEDS: MORPHINE SULFATE INJ 2 MG/ML DISP.SYRIN IV PRN ×3 (05:22→22:17)
[2019-04-05] MEDS: BLOOD SUGAR DIAGNOSTIC 1 EACH STRIP IN SCH ×4 (06:35→22:15)
[2019-04-05 06:44] LABS: BASOPHILS # (AUTO) 0.3 /CMM (0.0-0.2); BASOPHILS % (AUTO) 3.1 % (0.0-2.0); EOSINOPHILS % (AUTO) 1.8 % (0.0-6.0); HEMATOCRIT 25 % (39-51); HEMOGLOBIN 7.8 g/dL (13.5-17.5); LYMPHOCYTES # (AUTO) 1.5 /CMM (0.8-4.8); LYMPHOCYTES % (AUTO) 14.6 % (20.0-44.0); MEAN CORPUSCULAR HGB CONC 32 g/dl (31.0-36.0); MEAN CORPUSCULAR VOLUME 88 fL (80-96); MONOCYTES # (AUTO) 0.8 /CMM (0.1-1.30); MONOCYTES % (AUTO) 7.6 % (2.0-12.0); NEUTROPHILS # (AUTO) 7.7 /CMM (1.8-8.9); NEUTROPHILS % (AUTO) 72.9 % (43.0-81.0); PLATELET COUNT (AUTO) 247 /CMM (150-450); RED BLOOD CELL COUNT(AUTO) 2.79 MIL/uL (4.5-6.0); WHITE BLOOD COUNT (AUTO) 10.5 K/uL (4.3-11.0)
[2019-04-05 07:08] LABS: CALCIUM, SERUM 8.7 mg/dL (8.5-10.1); MAGNESIUM 1.9 mg/dL (1.8-2.4); PHOSPHORUS 5.6 mg/dL (2.5-4.9)
[2019-04-05 07:09] LABS: CREATININE 8.7 mg/dL (0.6-1.3)
--- NOTE | 2019-04-05 07:10 | NUR ---
MS RN NOTES RELAYED TO DR. VEE POTASSIUM LEVEL OF 6.3 AND THAT [facility] DIALYSIS NURSE IS AT BEDSIDE AWAITING FOR PATIENT TO BE DIALYZED.
--- NOTE | 2019-04-05 07:12 | NUR ---
MS RN OPENING NOTES RECEIVED PATIENT IN BED, ALERTA ND AWAKE.NO SOB. DENIES ANY C/O PAIN NOR DISCOMFORT AT THIS TIME. RIGHT UPPER ARM MIDLINE INTACT AND PATENT. LEFT JUGULAR PERMACATH IN PLACE. WELL. BED IN LOWEST POSITION, LOCKED. BED SIDERAILS UP X2. CALL LIGHT WITHIN REACH.
[2019-04-05] MEDS: PANTOPRAZOLE 40 MG TABLET.DR PO SCH (07:28)
[2019-04-05 07:44] LABS: POTASSIUM 6.3 mmol/L (3.5-5.1)
[2019-04-05 08:00] VITALS: BP 95/45
[2019-04-05] MEDS: CALCIUM ACETATE 667 MG TABLET PO SCH ×3 (08:00→17:30)
[2019-04-05] MEDS: SEVELAMER CARBONATE 800 MG TABLET PO SCH ×3 (08:00→17:30)
[2019-04-05] MEDS: MIDODRINE HCL (5MG) 5 MG TABLET PO SCH ×3 (08:19→16:34)
--- NOTE | 2019-04-05 08:19 | NUR ---
1T 8.20 PATIENT ON DIALYSIS TILL 11.00, THORACENTESIS ON HOLD
[2019-04-05] MEDS: AMIODARONE HCL 200 MG TABLET PO SCH ×3 (08:22→16:34)
[2019-04-05] MEDS: ACIDOPHILUS/BULGARICUS 1 EACH TAB.CHEW PO SCH ×2 (08:24→16:34)
[2019-04-05] MEDS: FERROUS SULFATE (325 MG) 325 MG/TAB TABLET PO SCH ×2 (08:24→16:34)
[2019-04-05] MEDS: FOLIC ACID 1 MG TABLET PO SCH (08:24)
[2019-04-05] MEDS: ASCORBIC ACID 500 MG TABLET PO SCH (08:25)
[2019-04-05] MEDS: GABAPENTIN 100 MG CAPSULE PO SCH ×3 (08:25→16:34)
[2019-04-05] MEDS: ZINC SULFATE 220 MG CAPSULE PO SCH (08:25)
[2019-04-05] MEDS: VIT B CMPLX 3/FA/VIT C/BIOTIN 1 TAB TABLET PO SCH (08:25)
[2019-04-05] MEDS: PROSOURCE / PROSTAT (PYXIS) 30 ML UDC PO SCH ×3 (08:25→16:33)
--- NOTE | 2019-04-05 08:26 | NUR ---
MS R NOTES HELD AM MEDS EXCEPT FOR MIDODRINE. PATIENT CURRENTLY RECEIVING HD
[2019-04-05] MEDS ORDERED: ALTEPLASE CATHFLO 2 MG/VIAL IV ONE (10:00)
[2019-04-05] MEDS: HYDROGEL DRESSING 90 GM TUBE TP SCH (10:04)
[2019-04-05] MEDS: SILVER SULFADIAZINE CREAM 25 GM TUBE TP SCH (10:05)
[2019-04-05] MEDS: IV NS 0.9% 1,000 ML IV PRN (10:13)
[2019-04-05 12:00] VITALS: BP 91/44
--- NOTE | 2019-04-05 12:10 | NUR ---
MS RN NOTES BS 146MG/DL, INSULIN HELD. PATIENT NPO THIS AM. PATIENT CURRENTLY HAVING THORACENTESIS DONE BY DR. SAMS.
--- NOTE | 2019-04-05 13:00 | NUR ---
MS RN NOTES HELD AMIODARONE LOW BP
[2019-04-05 13:44] LABS: CALCIUM, SERUM 8.3 mg/dL (8.5-10.1); CREATININE 6.9 mg/dL (0.6-1.3); POTASSIUM 4.9 mmol/L (3.5-5.1)
[2019-04-05 16:00] VITALS: BP_SYST 111; BP_SYST 113; BP_DIAS 47; BP_DIAS 55
[2019-04-05] MEDS: VANCOMYCIN 500 MG in IV D5W 100 ML IV PRN (16:29)
--- NOTE | 2019-04-05 16:35 | NUR ---
MS RN NOTES HELD AMIODARONE LOW BP
[2019-04-05] MEDS: *INSULIN REGULAR(HUMULIN R)HUM 100 UNIT/ML VIAL SQ PRN ×2 (16:44→21:53)
--- NOTE | 2019-04-05 19:04 | NUR ---
MS RN CLOSING NOTES ALERT AND ORIENTED X4. NO S/S OF RESPIRATORY DISTRESS. DENIES ANY C/O PAIN NOR DISCOMFORT AT THIS TIME. RIGHT UPPER ARM MIDLINE INTACT INFUSING NS @ 75ML/HR. LEFT JUGULAR PERMACATH IN PLACE. WOUND CARE DONE WARD WELL. HD TODAY, CLEANING ONLY PER HD NURSE. BED IN LOWEST POSITION, LOCKED. BED SIDERAILS UP X2. CALL LIGHT WITHIN REACH. IN NO APPARENT DISTRESS.
--- NOTE | 2019-04-05 20:00 | NUR ---
MS RN NOTES RECEIVED PATIENT AWAKE IN BED WITH NO DISTRESS NOTED. CALL LIGHT WITHIN REACH. NO C/O PAIN OR DISCOMFORT. KAREEM PERMA CATH INTACT. PERIPHERAL LINE INTACT AND PATENT. BED IN LOW SETTING WITH BED ALARM ON AND FUNCTIONING PROPERLY. ALL BELONGINGS KEPT NEAR BEDSIDE. WILL CONTINUE TO MONITOR.
[2019-04-05 20:46] VITALS: BP 107/44
[2019-04-05] MEDS: MIRTAZAPINE 15 MG TABLET PO SCH (21:47)
[2019-04-05] MEDS: MICAFUNGIN SODIUM 100 MG in IV NS 0.9% 100 ML IV SCH (21:47)
[2019-04-05] MEDS: DOCUSATE SODIUM 100 MG CAPSULE PO SCH (21:48)
[2019-04-06] VITALS (17 sets, daily range): BP systolic 90–157; BP diastolic 31–85
[2019-04-06] MEDS: PIPERACILLIN /TAZOBACTAM 3.375 G in IV D5W 50 ML IV SCH ×3 (00:46→16:29)
[2019-04-06] MEDS: IV NS 0.9% 1,000 ML IV PRN (03:25)
[2019-04-06] MEDS: MORPHINE SULFATE INJ 2 MG/ML DISP.SYRIN IV PRN (05:16)
[2019-04-06 06:06] LABS: AFP, TUMOR MARKER <0.7 ng/mL (0.0-8.3); CARBOHYDRATE AG 19-9 43 U/mL (0-35)
--- NOTE | 2019-04-06 06:39 | NUR ---
MS RN NOTES PATIENT ASLEEP IN BED WITH NO DISTRESS NOTED. CALL LIGHT WITHIN REACH. ALL DUE MEDS GVIEN ORDERED WITH NO ASE. NPO STATUS INITIATED AT MIDNIGHT AND MAINTAINED THROUGHOUT SHIFT FOR SCHEDULED CT GUIDED LIVER ABSCESS DRAINAGE AT 10AM TODAY. NO FURTHER C/O PAIN OR DISCOMFORT. KAREEM PERMA CATH INTACT. PERIPHERAL LINE INTACT AND PATENT. COLOSTOMY BAG CHANGED AND TOLERATED WELL. BED IN LOW SETTING WITH BED ALARM ON AND FUNCTIONING PROPERLY. ALL BELONGINGS KEPT NEAR BEDSIDE. WILL ENDORSE TO ONCOMING SHIFT.
[2019-04-06 07:00] LABS: CALCIUM, SERUM 8.3 mg/dL (8.5-10.1); CREATININE 7.4 mg/dL (0.6-1.3); POTASSIUM 5.9 mmol/L (3.5-5.1)
[2019-04-06] MEDS: BLOOD SUGAR DIAGNOSTIC 1 EACH STRIP IN SCH ×4 (07:30→21:24)
[2019-04-06] MEDS: CALCIUM ACETATE 667 MG TABLET PO SCH ×3 (09:38→17:25)
[2019-04-06] MEDS: SEVELAMER CARBONATE 800 MG TABLET PO SCH ×3 (09:38→17:25)
[2019-04-06] MEDS: VIT B CMPLX 3/FA/VIT C/BIOTIN 1 TAB TABLET PO SCH (09:38)
[2019-04-06] MEDS: FERROUS SULFATE (325 MG) 325 MG/TAB TABLET PO SCH ×2 (09:38→17:25)
[2019-04-06] MEDS: AMIODARONE HCL 200 MG TABLET PO SCH ×3 (09:39→16:30)
[2019-04-06] MEDS: PANTOPRAZOLE 40 MG TABLET.DR PO SCH (09:40)
[2019-04-06] MEDS: GABAPENTIN 100 MG CAPSULE PO SCH ×3 (09:40→16:30)
[2019-04-06] MEDS: ASCORBIC ACID 500 MG TABLET PO SCH (09:40)
[2019-04-06] MEDS: ACIDOPHILUS/BULGARICUS 1 EACH TAB.CHEW PO SCH ×2 (09:40→16:29)
[2019-04-06] MEDS: ZINC SULFATE 220 MG CAPSULE PO SCH (09:40)
[2019-04-06] MEDS: IBUPROFEN 400 MG TABLET PO PRN ×2 (09:41→22:49)
[2019-04-06] MEDS: MIDODRINE HCL (5MG) 5 MG TABLET PO SCH ×3 (09:41→16:31)
[2019-04-06] MEDS: FOLIC ACID 1 MG TABLET PO SCH (09:41)
[2019-04-06] MEDS: PROSOURCE / PROSTAT (PYXIS) 30 ML UDC PO SCH ×3 (09:43→16:31)
[2019-04-06] MEDS: HYDROGEL DRESSING 90 GM TUBE TP SCH (09:43)
[2019-04-06] MEDS: SILVER SULFADIAZINE CREAM 25 GM TUBE TP SCH (09:43)
--- NOTE | 2019-04-06 11:01 | NUR ---
alert, oriented, and appropriate, ostomy bag burst, new one applied. Has had this for more than one year, but " unable to do it by myself". " the [facility] where [facility] stay they do it, because of my poor vision vague c/o pain, MOTRIN 600mg po given with a sip of water
[2019-04-06] MEDS ORDERED: MIDAZOLAM HCL 5MG/ML VIAL 25 MG/5 ML VIAL IV ONE (13:30)
[2019-04-06] MEDS ORDERED: FENTANYL PF 250MCG/5ML AMPUL IV ONE (13:30)
[2019-04-06] MEDS ORDERED: NALOXONE PREFILLED SYRINGE 2 MG/2 ML SYRINGE IV ONE (13:30)
--- NOTE | 2019-04-06 14:44 | NUR ---
HD started at 11am today, then off for CT Guided. BS, as well as po meds held at this time
--- NOTE | 2019-04-06 15:41 | NUR ---
CT percutaneous drain abscess done by Dr Crooks, pt tolerated procedure Fr 10 pigtails placed on Right anterior and right posterior aspects of abd wall. no medication given for sedation. report given to floor RN Dosh; transferred via bed to [facility]
--- NOTE | 2019-04-06 16:50 | NUR ---
awake , alert, oriented, and appropriate. c/o " hunger, sandwich offered, and beverages, at the same time bp low side 90/47, HR 67, Missed po meds while on HD, and at the procedure CT SCAN guided, to drain hepatic abscess. All po meds given now, especially MIDODRINE 10mg back to the floor, Right side of abdominal wall, drains x 2, with no drainage noted. BS 45, D50 not given. Eating and drinking now. will check the sugar one hour later
--- NOTE | 2019-04-06 18:41 | NUR ---
1830 finished dinner, 100% consumption, dangling, alert, oriented, nocomplaint of pain. rechecked BS 108
--- NOTE | 2019-04-06 19:15 | NUR ---
RN NOTE RECEIVED PT IN BED AWAKE AND ALERT X 4 IN SEMI EDWARD'S POSITION. PT DENIES PAIN OR DISCOMFORT. CURRENTLY ON IVF AND TOLERATING WELL. PT IS AWAITING BED IN MED SURG FLOOR. WILL MONITOR. CALL LIGHT WITHIN REACH, SAFETY MEASURES IMPLEMENTED.
[2019-04-06] MEDS: MICAFUNGIN SODIUM 100 MG in IV NS 0.9% 100 ML IV SCH (20:07)
[2019-04-06] MEDS: DOCUSATE SODIUM 100 MG CAPSULE PO SCH (21:06)
[2019-04-06] MEDS: MIRTAZAPINE 15 MG TABLET PO SCH (21:06)
[2019-04-06] MEDS: *INSULIN REGULAR(HUMULIN R)HUM 100 UNIT/ML VIAL SQ PRN (21:21)
--- NOTE | 2019-04-06 23:04 | NUR ---
RN NOTE REPORT GIVEN TO MELECIO HERNANDEZ FOR CONTINUATION OF CARE.
--- NOTE | 2019-04-06 23:30 | NUR ---
[employer] GOODS MAKER NOTES 2330 RECEIVED PATIENT FROM MARY DURAN. PATIENT ARRIVED ON THE UNIT AT 2325 VIA WHEELCHAIR, ESCORTED BY MARY DURAN. A/O X 4. PATIENT ABLE TO VERBALIZE NEEDS. NO SIGNS OF RESPIRATORY DISTRESS. NO SHORTNESS OF BREATH NOTED. NO COMPLAINTS OF PAIN OR DISCOMFORT AT THIS TIME. IV SITE IN SIRIA IN PLACE, INTACT, PATENT, NO SIGNS OF INFECTION/INFILTRATION, DRESSING CLEAN, IVF INFUSING. SAFETY PRECAUTIONS IMPLEMENTED; CALL LIGHT WITHIN REACH, BED LOW, BED LOCKED, BILATERAL UPPER SIDE RAILS UP. WILL CONTINUE TO MONITOR.
--- NOTE | 2019-04-06 23:37 | NUR ---
RN NOTE PT TRANSFERRED TO MED SURG FLOOR 2 (207-2) UNDER THE CARE OF MARY MAJANO IN STABLE CONDITION.
[2019-04-07] VITALS (7 sets, daily range): BP systolic 131–140; BP diastolic 69–81
[2019-04-07] MEDS: PIPERACILLIN /TAZOBACTAM 3.375 G in IV D5W 50 ML IV SCH ×3 (00:16→16:59)
[2019-04-07 06:45] LABS: CREATININE 5.8 mg/dL (0.6-1.3); POTASSIUM 4.4 mmol/L (3.5-5.1)
[2019-04-07] MEDS: BLOOD SUGAR DIAGNOSTIC 1 EACH STRIP IN SCH ×3 (06:46→17:05)
[2019-04-07] MEDS: INSULIN REGULAR, HUMAN 100 UNIT/ML 3 ML VIAL SQ PRN (06:47)
--- NOTE | 2019-04-07 06:54 | NUR ---
RN NOTES NO DRAINAGE NOTED ON BOTH DRAINAGE BAGS.
[2019-04-07 06:55] LABS: BASOPHILS # (AUTO) 0.1 /CMM (0.0-0.2); BASOPHILS % (AUTO) 1.7 % (0.0-2.0); EOSINOPHILS % (AUTO) 3.5 % (0.0-6.0); HEMATOCRIT 24 % (39-51); HEMOGLOBIN 7.6 g/dL (13.5-17.5); LYMPHOCYTES # (AUTO) 0.9 /CMM (0.8-4.8); LYMPHOCYTES % (AUTO) 17.9 % (20.0-44.0); MEAN CORPUSCULAR HGB CONC 32 g/dl (31.0-36.0); MEAN CORPUSCULAR VOLUME 87 fL (80-96); MONOCYTES # (AUTO) 0.4 /CMM (0.1-1.30); MONOCYTES % (AUTO) 8.4 % (2.0-12.0); NEUTROPHILS # (AUTO) 3.5 /CMM (1.8-8.9); NEUTROPHILS % (AUTO) 68.5 % (43.0-81.0); PLATELET COUNT (AUTO) 199 /CMM (150-450); RED BLOOD CELL COUNT(AUTO) 2.75 MIL/uL (4.5-6.0); WHITE BLOOD COUNT (AUTO) 5.1 K/uL (4.3-11.0)
--- NOTE | 2019-04-07 06:55 | NUR ---
RN CLOSING NOTES PATIENT IS CURRENTLY ASLEEP, EASILY AWAKENED. NO SIGNS OF RESPIRATORY DISTRESS, NO SHORTNESS OF BREATH NOTED, RESPIRATIONS EVEN AND UNLABORED. NO SIGNS OF FACIAL GRIMACING INDICATING PAIN OR DISCOMFORT AT THIS TIME. IV SITE SIRIA INTACT AND PATENT, NO SIGNS OF INFECTION/INFILTRATION, IVF RUNNING. KAREEM PERMA CATH INTACT. PATIENT KEPT CLEAN, DRY, AND COMFORTABLE. COLOSTOMY IN PLACE, CHANGED AND TOLERATED WELL. DRAINAGE BAGS TO RIGHT ABDOMINAL WALL IN PLACE. ALL NEEDS MET ON SHIFT. ALL DRESSINGS CHANGED. ALL DUE MEDS GIVEN ORDERED WITH NO ADVERSE EFFECTS. SAFETY PRECAUTIONS IMPLEMENTED; CALL LIGHT WITHIN REACH, BED LOW, BED LOCKED, BILATERAL UPPER SIDE RAILS UP. WILL ENDORSE TO DAY SHIFT NURSE FOR CONTINUITY OF CARE.
[2019-04-07] MEDS: CALCIUM ACETATE 667 MG TABLET PO SCH ×3 (07:43→17:06)
[2019-04-07] MEDS: PANTOPRAZOLE 40 MG TABLET.DR PO SCH (07:43)
[2019-04-07] MEDS: SEVELAMER CARBONATE 800 MG TABLET PO SCH ×3 (07:44→17:06)
--- NOTE | 2019-04-07 08:21 | NUR ---
RN OPENING NOTE PT WAS RECEIVED IN BED AT LOWEST AND LOCKED POSITION WITH SIDE RAILS UP X2, A/O X4 BREATHING EVEN AND UNLABORED ON RA, NO S/S OF ANY DISTRESS OR PAIN NOTED AT THIS TIME, IV IS PATENT AND INTACT, HD CATH IN PLACE, AWAITING CULTURES, SAFETY PRECAUTIONS IN PLACE, CALL LIGHT IN REACH, WILL MONITOR ACCORDINGLY.
[2019-04-07] MEDS: ACIDOPHILUS/BULGARICUS 1 EACH TAB.CHEW PO SCH ×2 (09:10→16:59)
[2019-04-07] MEDS: VIT B CMPLX 3/FA/VIT C/BIOTIN 1 TAB TABLET PO SCH (09:10)
[2019-04-07] MEDS: ZINC SULFATE 220 MG CAPSULE PO SCH (09:11)
[2019-04-07] MEDS: GABAPENTIN 100 MG CAPSULE PO SCH ×3 (09:11→16:59)
[2019-04-07] MEDS: FOLIC ACID 1 MG TABLET PO SCH (09:11)
[2019-04-07] MEDS: FERROUS SULFATE (325 MG) 325 MG/TAB TABLET PO SCH ×2 (09:11→17:09)
[2019-04-07] MEDS: AMIODARONE HCL 200 MG TABLET PO SCH ×3 (09:12→17:00)
[2019-04-07] MEDS: ASCORBIC ACID 500 MG TABLET PO SCH (09:12)
[2019-04-07] MEDS: MIDODRINE HCL (5MG) 5 MG TABLET PO SCH ×3 (09:13→17:00)
[2019-04-07] MEDS: PROSOURCE / PROSTAT (PYXIS) 30 ML UDC PO SCH ×3 (09:15→17:05)
[2019-04-07] MEDS: HYDROGEL DRESSING 90 GM TUBE TP SCH (09:16)
[2019-04-07] MEDS: SILVER SULFADIAZINE CREAM 25 GM TUBE TP SCH (09:17)
[2019-04-07] MEDS: MORPHINE SULFATE INJ 2 MG/ML DISP.SYRIN IV PRN ×2 (10:10→19:36)
[2019-04-07] MEDS ORDERED: RXVAN XX (11:10)
[2019-04-07] MEDS: *INSULIN REGULAR(HUMULIN R)HUM 100 UNIT/ML VIAL SQ PRN ×2 (12:12→17:02)
--- NOTE | 2019-04-07 18:25 | NUR ---
RN NOTE REPORT GIVEN TO DARNELL AT [facility] AT THIS TIME
--- NOTE | 2019-04-07 19:00 | NUR ---
RN elvasurkristen opening notes Received Pt from morning nurse. Pt is alert and orentedX4. Pt is laying in bed comfortably watching TV. Respiration is normal. NO SOB. No S/S of distress noted. SIRIA midline is clean, intact and patent. Pt will be D/C at 1930 to [facility] per am nurse. D/C instructions is signed by Pt. Pt is verbalize understanding. Safety precautions is maintianed. Bed at low position, brakes locked, side rails upX3 and call light is within reach. Will continue to monitor.
--- NOTE | 2019-04-07 19:17 | NUR ---
RN CLOSING NOTE PT IN BED AT LOWEST AND LOCKED POSITION WITH SIDE RAILS UP X2, A/O X4 BREATHING EVEN AND UNLABORED ON RA, NO S/S OF ANY DISTRESS OR PAIN AT THIS TIME, IV IS PATENT AND INTACT, HD CATH IN PLACE, SAFETY PRECAUTIONS IN PLACE, CALL LIGHT IN REACH, ALL NEEDS ATTENDED TO, WILL ENDORSE TO NIGHT RN FOR SADIA.
--- NOTE | 2019-04-07 19:36 | NUR ---
RN medsurg notes Pt is complaining of pain on his back and requesting pain meds. Administered Morphine sulfate 2 mg/1 ml as ordered for pain 10/10 on pain scale per pt' request. VS is stable. Safety precautions is maintained. Will continue to monitor.
--- NOTE | 2019-04-07 20:40 | NUR ---
RN lorie D/C notes [facility] # [phone] ([facility] and Srinivas ) came to transport Pt to [facility]. Pt is alert and oriented X4. Respiration is normal. No SOB. VS is stable. Afebrile. No S/S of distress noted. SIRIA midline is clean, intact and patent. Colostomy is intact and patent. D/C paperwork is given to Pt. Pt is verbalized understanding. Pt's armband is removed. Pt's belongings was given to Pt.
[2019-04-20] MEDS ORDERED: Linezolid PO (12:06)
[2019-04-20] MEDS ORDERED: MERO500P IV (12:06)
[2019-04-20] MEDS ORDERED: MICA100V IV (12:06)
[2019-05-20] MEDS ORDERED: MERO500P IV (13:50)
[2019-05-20] MEDS ORDERED: MICA100V IV (13:50)
== END 2019-04-07 20:40 | DRG 264 ==
LOC: ER 11:38 → TELE1 13:32 → MEDSG1 04-03 08:58 → MEDSG2 04-06 23:27
PROVIDERS: ADMIT Hospitalist; ATTEND Family Medicine
PROC: 0JB70ZZ Excision of Back Subcutaneous Tissue and Fascia, Open Approach (ICD-10-PCS; principal; 2019-04-02)
PROC: 5A1D70Z Performance of Urinary Filtration, Intermittent, Less than 6 Hours Per Day (ICD-10-PCS; principal; 2019-04-02)
PROC: 05H533Z Insertion of Infusion Device into Right Subclavian Vein, Percutaneous Approach (ICD-10-PCS; principal; 2019-04-02)
PROC: 0W993ZZ Drainage of Right Pleural Cavity, Percutaneous Approach (ICD-10-PCS; 2019-04-05)
PROC: 0F903ZZ Drainage of Liver, Percutaneous Approach (ICD-10-PCS; 2019-04-06)
DX: T80.211A Bloodstream infection due to central venous catheter, initial encounter (principal); L89.153 Pressure ulcer of sacral region, stage 3; L89.323 Pressure ulcer of left buttock, stage 3; A41.9 Sepsis, unspecified organism; J15.6 Pneumonia due to other Gram-negative bacteria; E43 Unspecified severe protein-calorie malnutrition; G93.41 Metabolic encephalopathy; N18.6 End stage renal disease; K75.0 Abscess of liver; J15.9 Unspecified bacterial pneumonia; E87.1 Hypo-osmolality and hyponatremia; I13.2 Hypertensive heart and chronic kidney disease with heart failure and with stage 5 chronic kidney disease, or end stage renal disease; I50.32 Chronic diastolic (congestive) heart failure; J90 Pleural effusion, not elsewhere classified; E87.2 Acidosis; L97.819 Non-pressure chronic ulcer of other part of right lower leg with unspecified severity; J44.0 Chronic obstructive pulmonary disease with (acute) lower respiratory infection; I47.2 Ventricular tachycardia; Y84.8 Other medical procedures as the cause of abnormal reaction of the patient, or of later complication, without mention of misadventure at the time of the procedure; E87.5 Hyperkalemia; E11.621 Type 2 diabetes mellitus with foot ulcer; Z93.3 Colostomy status; Z93.2 Ileostomy status; K21.9 Gastro-esophageal reflux disease without esophagitis; E11.22 Type 2 diabetes mellitus with diabetic chronic kidney disease; E11.42 Type 2 diabetes mellitus with diabetic polyneuropathy; Z99.2 Dependence on renal dialysis; F17.200 Nicotine dependence, unspecified, uncomplicated; G89.29 Other chronic pain; I25.10 Atherosclerotic heart disease of native coronary artery without angina pectoris; Z95.810 Presence of automatic (implantable) cardiac defibrillator; E88.09 Other disorders of plasma-protein metabolism, not elsewhere classified; M10.9 Gout, unspecified; L97.519 Non-pressure chronic ulcer of other part of right foot with unspecified severity; L97.529 Non-pressure chronic ulcer of other part of left foot with unspecified severity; Z90.49 Acquired absence of other specified parts of digestive tract; S61.401A Unspecified open wound of right hand, initial encounter; X58.XXXA Exposure to other specified factors, initial encounter; Y93.9 Activity, unspecified; Y92.129 Unspecified place in nursing home as the place of occurrence of the external cause; E11.65 Type 2 diabetes mellitus with hyperglycemia; R23.4 Changes in skin texture; L90.5 Scar conditions and fibrosis of skin; E11.610 Type 2 diabetes mellitus with diabetic neuropathic arthropathy; R53.1 Weakness; M19.90 Unspecified osteoarthritis, unspecified site; Z68.20 Body mass index [BMI] 20.0-20.9, adult; Z94.7 Corneal transplant status; D64.9 Anemia, unspecified; Z85.89 Personal history of malignant neoplasm of other organs and systems; Z79.4 Long term (current) use of insulin
CPT/HCPCS: 36410; 36415; 71045-TC; 71250-TC; 74178; 75989-TC; 76700-TC; 80048-TC; 80053-TC; 80061-TC; 80076-TC; 80202-TC; 82105; 82378; 82962-TC; 83540-TC; 83605-TC; 83735-TC; 84100-TC; 84439-TC; 84443-TC; 84484-TC; 85025-TC; 85610-TC; 85730-TC; 86301; 86706; 87040-TC; 87070-TC; 87075-TC; 87081-TC; 87102-TC; 87186-TC; 87340; 88112-TC; 88305-TC; 88312-TC; 90935-TC; 97110-TC; 97116-TC; 97530-TC; A6248; A6253; A6403; G0378; J0456; J0696; J1815; J2248; J2250; J2270; J2310; J2543; J2997; J3010; J3370; J3475; J7030; J7040; J7050; J7060; Q9967

== ENCOUNTER 2019-04-14 13:44 | Inpatient (IN) | payer BC, OTHER ==
[~2019-04-14] VITALS: Ht 165.1 cm; Wt 70.8 kg
[~2019-04-14 13:44] MED LIST changes: +ASCO500T9 PO; -DULO30CA2 PO; -FLUC100T8 PO; +MIRT15TA7 PO; +OMEP20CA15 PO; +RXVAN XX; +SEVE800T8 PO; +ZINC1CAP2 PO; -ZOLP5TAB8 PO
--- NOTE | 2019-04-14 14:00 | NUR ---
patient came in to ther er BIB ra frm snf c/o dislodged biliary drain. On room air, breathing evenly and unlabored. connected to the monitor and pulse ox. kept comfortable, will continue to monitor accordingly.
[2019-04-14 14:41] LABS: BASOPHILS # (AUTO) 0.1 /CMM (0.0-0.2); BASOPHILS % (AUTO) 1.4 % (0.0-2.0); EOSINOPHILS % (AUTO) 0.6 % (0.0-6.0); HEMATOCRIT 25 % (39-51); HEMOGLOBIN 7.9 g/dL (13.5-17.5); LYMPHOCYTES # (AUTO) 0.9 /CMM (0.8-4.8); LYMPHOCYTES % (AUTO) 12.2 % (20.0-44.0); MEAN CORPUSCULAR HGB CONC 31 g/dl (31.0-36.0); MEAN CORPUSCULAR VOLUME 89 fL (80-96); MONOCYTES # (AUTO) 0.4 /CMM (0.1-1.30); MONOCYTES % (AUTO) 5.8 % (2.0-12.0); NEUTROPHILS # (AUTO) 6.2 /CMM (1.8-8.9); PLATELET COUNT (AUTO) 198 /CMM (150-450); RED BLOOD CELL COUNT(AUTO) 2.86 MIL/uL (4.5-6.0); WHITE BLOOD COUNT (AUTO) 7.8 K/uL (4.3-11.0)
[2019-04-14 14:51] LABS: CALCIUM, SERUM 8.3 mg/dL (8.5-10.1); CARBON DIOXIDE 14 mmol/L (21-32); CHLORIDE 105 mmol/L (98-107); GLUCOSE 174 mg/dL (74-106); POTASSIUM 5.6 mmol/L (3.5-5.1); SODIUM SERUM 133 mmol/L (136-145); UREA NITROGEN, BLOOD 55 mg/dL (7-18)
[2019-04-14 14:52] LABS: CREATININE 8.4 mg/dL (0.6-1.3)
[2019-04-14 14:56] LABS: ALANINE AMINOTRANSFERASE 8 U/L (12-78); ALBUMIN 1.5 g/dL (3.4-5.0); ALKALINE PHOSPHATASE 146 U/L (46-116); ASPARTATE AMINOTRANSFERASE 14 U/L (15-37); BILIRUBIN,DIRECT 0.1 mg/dL (0.0-0.2); BILIRUBIN,TOTAL 0.3 mg/dL (0.2-1.0); TOTAL PROTEIN, SERUM 5.2 g/dL (6.4-8.2)
--- NOTE | 2019-04-14 15:20 | NUR ---
patient came back from ct
[2019-04-14] MEDS ORDERED: MERO500V21 IV (15:58)
--- NOTE | 2019-04-14 16:36 | NUR ---
got bed 208-2
--- NOTE | 2019-04-14 17:10 | NUR ---
report given to Lu HERNANDEZ for pete.
[2019-04-14 17:45] VITALS: BP 149/83
--- NOTE | 2019-04-14 17:45 | NUR ---
PATIENT ADMITTED TO ROOM 208-2 . AWAKE , ALERT AND ORIENTED X4. VS ARE STABLE AND WITHIN BASELINE , ON ROOM AIR TOLERATING WELL. IV TO THE LAS G 18, FLUSHING WELL. RIGHT LATERAL OSTOMY WITH CLEAN SKIN AROUND . RIGHT UPPER BILIARY INCISION, HD ACCESS ON L UPPER CHEST WITH CLEAN DRESSING. PATIENT REFUSED SKIN ASSESSMENT AT THIS TIME AND STATS , "I'VE GOT ENOUGH TODAY". PATIENT ABLE TO AMBULATE WITH ASSISTANCE. SAFETY PRECAUTIONS IMPLEMENTED, CALL LIGHT WITHIN REACH. PATIENT NPO STATUS FOR PROCEDURE TONIGHT. WILL ENDORSE TO NEXT SHIFT FOR SADIA.
--- NOTE | 2019-04-14 17:50 | NUR ---
Wheeled patient via gurney accompanied by EMT in no distress, RN at bedside to assume care.
[2019-04-14] MEDS ORDERED: MAG HYDROX/AL HYDROX/SIMETH 30 ML UDC PO PRN (18:00)
[2019-04-14] MEDS ORDERED: NA PHOS,M-B/NA PHOS,DI-BA 1 EA ENEMA RC PRN (18:00)
[2019-04-14] MEDS: CALCIUM ACETATE 667 MG TABLET PO SCH (18:00)
[2019-04-14] MEDS ORDERED: MAGNESIUM HYDROXIDE 30 ML UDC PO PRN (18:00)
[2019-04-14] MEDS ORDERED: BISACODYL SUPP (10 MG) 10 MG/SUPP.RECT SUPP.RECT RC PRN (18:00)
[2019-04-14] MEDS ORDERED: ACETAMINOPHEN 325 MG TABLET PO PRN (18:00)
[2019-04-14] MEDS: SEVELAMER CARBONATE 0.8 GM POWD.PACK PO SCH (18:00)
[2019-04-14 20:15] VITALS: BP 150/80
--- NOTE | 2019-04-14 20:35 | NUR ---
PATIENT ALLOWED PICTURES TO BE TAKEN.
--- NOTE | 2019-04-14 20:59 | NUR ---
COMPUTED TOMOGRAPHY PERCUTANEOUS DRAINAGE OF ABCESS WITH CATETER SCHEUDLED FOR 10 AM TOMORROW. CONSENT SIGNED. PATIENT TO BE NPO AFTER MIDNIGHT.
[2019-04-14] MEDS ORDERED: MEROPENEM 500 MG VIAL IV SCH (21:00)
[2019-04-14] MEDS: MEROPENEM 500 MG in IV NS 0.9% 50 ML IV SCH (21:24)
[2019-04-14] MEDS: MICAFUNGIN SODIUM 100 MG in IV NS 0.9% 100 ML IV SCH (22:42)
[2019-04-14] MEDS: MIRTAZAPINE 15 MG TABLET PO SCH (22:51)
[2019-04-14] MEDS: DOCUSATE SODIUM 100 MG CAPSULE PO SCH (22:51)
[2019-04-15 07:28] LABS: THYROID STIMULATING HORMONE 6.577 uIU/mL (0.358-3.74)
[2019-04-15] MEDS: PANTOPRAZOLE 40 MG TABLET.DR PO SCH (07:30)
[2019-04-15 08:00] VITALS: BP 137/68
[2019-04-15] MEDS: CALCIUM ACETATE 667 MG TABLET PO SCH ×3 (08:00→17:26)
[2019-04-15] MEDS: SEVELAMER CARBONATE 0.8 GM POWD.PACK PO SCH ×3 (08:00→17:26)
[2019-04-15] MEDS: FERROUS SULFATE (325 MG) 325 MG/TAB TABLET PO SCH (08:05)
[2019-04-15] MEDS: AMIODARONE HCL 200 MG TABLET PO SCH ×3 (08:05→17:25)
[2019-04-15] MEDS: ASCORBIC ACID 500 MG TABLET PO SCH (08:06)
[2019-04-15] MEDS: VIT B CMPLX 3/FA/VIT C/BIOTIN 1 TAB TABLET PO SCH (08:06)
[2019-04-15] MEDS: MIDODRINE HCL (5MG) 5 MG TABLET PO SCH ×3 (08:06→17:00)
[2019-04-15] MEDS: FOLIC ACID 1 MG TABLET PO SCH (08:06)
[2019-04-15] MEDS: PROSOURCE / PROSTAT (PYXIS) 30 ML UDC PO SCH ×3 (08:06→17:00)
[2019-04-15] MEDS: GABAPENTIN 100 MG CAPSULE PO SCH ×3 (08:06→17:26)
[2019-04-15] MEDS: ZINC SULFATE 220 MG CAPSULE PO SCH (08:07)
[2019-04-15] MEDS ORDERED: MICAFUNGIN SODIUM 100 MG in IV NS 0.9% 100 ML IV SCH (09:00)
[2019-04-15] MEDS ORDERED: LIDOCAINE 1% INJ 50 ML MDV IJ ONE (10:17)
--- NOTE | 2019-04-15 10:21 | NUR ---
patient picked up by radiology staff for procedure. Awake , alert and oriented and not in any distress.
[2019-04-15 10:27] VITALS: BP 137/68
[2019-04-15] MEDS ORDERED: NALOXONE PREFILLED SYRINGE 2 MG/2 ML SYRINGE IV ONE (10:30)
[2019-04-15] MEDS ORDERED: FENTANYL PF 250MCG/5ML AMPUL IV ONE (10:30)
[2019-04-15] MEDS ORDERED: MIDAZOLAM HCL 5MG/ML VIAL 25 MG/5 ML VIAL IV ONE (10:30)
[2019-04-15 13:12] LABS: APPEARANCE,URINE CLEAR (CLEAR); BILIRUBIN,URINE NEGATIVE (NEGATIVE); BLOOD, URINE NEGATIVE Ery/uL (NEGATIVE); COLOR,URINE YELLOW (YELLOW); KETONES,URINE NEGATIVE (NEGATIVE); LEUKOCYTE ESTERASE ,URINE NEGATIVE (NEGATIVE); NITRITE, URINE NEGATIVE (NEGATIVE); PH,URINE 5.5 (5.0-8.0); PROTEIN,URINE TRACE mg/dl (NEGATIVE); UGLUCOSE 100 MG/DL mg/dL (NEGATIVE); UROBILINOGEN,URINE 0.2 EU/dL (0.2)
[2019-04-15 14:33] LABS: WBC,URINE 0-2 /HPF (0-3)
[2019-04-15 14:37] LABS: BACTERIA,URINE 1+ /HPF (None Seen)
--- NOTE | 2019-04-15 15:00 | NUR ---
Bedside dialysis started , no distress noted
--- NOTE | 2019-04-15 17:00 | NUR ---
bedside HD finished with output 2000 ml. Patient denies pain or SOB , VS are stable , pt remains on room air
[2019-04-15 17:18] VITALS: BP 154/98
[2019-04-15] MEDS: HYDROCODONE/APAP 5/325MG 1 EACH TABLET PO PRN (18:48)
[2019-04-15 18:58] VITALS: BP 154/69
--- NOTE | 2019-04-15 19:28 | NUR ---
patient remains stable on room air, no distress. PRN med administrated per pt request once for generalized pain. Safety precaution in place , call light within reach. Will endorse to next shift nurse for SADIA
--- NOTE | 2019-04-15 19:30 | NUR ---
RN PM OPENING NOTE. BEDSIDE REPORT RECIEVED FROM JAKE HERNANDEZ. PT IN NO DISTRESS ON ROOOM AIR RESTING IN BED IN SEMIFOWLERS POSITION WITH SRX2 CALL LIGHT WITHIN REACH. ILEOSTOMY DRAINING LIGHT BROWN LIQUID STOOL. PATIENT DENIES PAIN AT THIS TIME. WILL CONT TO MONITOR.
[2019-04-15] MEDS ORDERED: FEE PK DOSING 1 MIN EA MC ONE (19:46)
[2019-04-15] MEDS ORDERED: VANCOMYCIN 500 MG in IV D5W 100 ML IV PRN (20:00)
[2019-04-15] MEDS: MEROPENEM 500 MG in IV NS 0.9% 50 ML IV SCH (20:31)
[2019-04-15] MEDS ORDERED: VANCOMYCIN 1 GM in IV D5W 250 ML IV ONE (21:00)
[2019-04-15] MEDS: MICAFUNGIN SODIUM 100 MG in IV NS 0.9% 100 ML IV SCH (21:37)
[2019-04-15] MEDS: DOCUSATE SODIUM 100 MG CAPSULE PO SCH (21:38)
[2019-04-15] MEDS: MIRTAZAPINE 15 MG TABLET PO SCH (21:42)
[2019-04-15 22:45] VITALS: BP 113/56
[2019-04-16 06:51] LABS: CALCIUM, SERUM 8.3 mg/dL (8.5-10.1)
[2019-04-16 07:01] LABS: CREATININE 7.6 mg/dL (0.6-1.3)
--- NOTE | 2019-04-16 07:10 | NUR ---
MS RN OPENING NOTES RECEIVED PATIENT IN BED, ALERT AND AWAKE ORIENTED X4. HOB ELEVATED. NO SOB. DENIES ANY C/O PAIN NOR DISCOMFORT AT THIS TIME. SIRIA MIDLINE INTACT AND PATENT. BED IN LOWEST POSITION, LOCKED. BED ALARM ON. BED SIDERAILS UPX2. CALL LIGHT WITHIN REACH.
[2019-04-16 08:00] VITALS: BP 117/58
[2019-04-16] MEDS: PANTOPRAZOLE 40 MG TABLET.DR PO SCH (08:45)
[2019-04-16] MEDS: GABAPENTIN 100 MG CAPSULE PO SCH ×3 (08:46→17:27)
[2019-04-16] MEDS: FOLIC ACID 1 MG TABLET PO SCH (08:47)
[2019-04-16] MEDS: CALCIUM ACETATE 667 MG TABLET PO SCH ×3 (08:47→17:27)
[2019-04-16] MEDS: ASCORBIC ACID 500 MG TABLET PO SCH (08:47)
[2019-04-16] MEDS: FERROUS SULFATE (325 MG) 325 MG/TAB TABLET PO SCH (08:47)
[2019-04-16] MEDS: VIT B CMPLX 3/FA/VIT C/BIOTIN 1 TAB TABLET PO SCH (08:47)
[2019-04-16] MEDS: ZINC SULFATE 220 MG CAPSULE PO SCH (08:47)
[2019-04-16] MEDS: SEVELAMER CARBONATE 0.8 GM POWD.PACK PO SCH ×3 (08:47→17:28)
[2019-04-16] MEDS: PROSOURCE / PROSTAT (PYXIS) 30 ML UDC PO SCH ×3 (08:48→17:28)
[2019-04-16] MEDS: SILVER SULFADIAZINE 50 GM JAR TP SCH (08:48)
[2019-04-16] MEDS: MIDODRINE HCL (5MG) 5 MG TABLET PO SCH ×3 (08:48→17:00)
[2019-04-16] MEDS: AMIODARONE HCL 200 MG TABLET PO SCH ×3 (09:00→17:27)
[2019-04-16] MEDS: HYDROCODONE/APAP 5/325MG 1 EACH TABLET PO PRN ×3 (09:14→21:15)
--- NOTE | 2019-04-16 09:15 | NUR ---
MS RN NOTES HEKD AMIODARONE, ANTICIPATING HD
[2019-04-16 16:00] VITALS: BP 128/62
--- NOTE | 2019-04-16 17:28 | NUR ---
MS RN NOTES HELD MIDODRINE BP 128/62
--- NOTE | 2019-04-16 18:55 | NUR ---
MS RN CLOSING NOTES PATIENT RESTING COMFORTABLY IN BED. HOB ELEVATED. NO S/S OF RESPIRATORY DISTRESS. DENIES ANY C/O PAIN NOR DISCOMFORT AT THIS TIME. SIRIA MIDLINE INTACT AND PATENT. LEFT SUBCLAVIAN AGUILA CATH INTACT WITH DRESSING INTACT. PENDING ACCEPTANCE FOR HIGHER LEVEL OF CARE. BED IN LOWEST POSITION, LOCKED. BED ALARM ON. BED SIDERAILS UPX2. CALL LIGHT WITHIN REACH. ABLE TO VERBALIZE NEEDS. IN NO APPARENT DISTRESS.
--- NOTE | 2019-04-16 19:40 | NUR ---
RN OPEN NOTES RECEIVED PATIENT AWAKE IN BED. A/OX4. NO SIGNS OF DISTRESS OR DISCOMFORT. BREATHING EVEN AND UNLABORED. HAS SIRIA MIDLINE, PATENT AND INTACT, NO SIGNS OF REDNESS OR INFILTRATION. HAS LCW CATH INTACT, HAS 2 R UPPER BACK DRAINS INTACT, DRAINING SEROUS FLUID. HAS ILEOSTOMY BAG IN PLACE. BED IN LOW LOCKED POSITION WITH SIDE RAILS X2. CALL LIGHT WITHIN REACH. WILL CONTINUE TO MONITOR.
[2019-04-16 20:00] VITALS: BP 151/84
[2019-04-16] MEDS: MEROPENEM 500 MG in IV NS 0.9% 50 ML IV SCH (20:25)
[2019-04-16] MEDS: MICAFUNGIN SODIUM 100 MG in IV NS 0.9% 100 ML IV SCH (20:57)
[2019-04-16] MEDS: DOCUSATE SODIUM 100 MG CAPSULE PO SCH (21:03)
[2019-04-16] MEDS: MIRTAZAPINE 15 MG TABLET PO SCH (21:03)
--- NOTE | 2019-04-17 07:20 | NUR ---
MS RN OPENING NOTES RECEIVED PATIENT SITTING UP IN BED WATCHING TV. NO S/S OF RESPIRATORY DISTRESS. DENIES ANY C/O PAIN NOR DISCOMFORT AT THIS TIME. SIRIA MIDLINE INTACT AND PATENT. ILEOSTOMY BAG SECURED IN PLACE WITH LIQUID AND FORMED STOOL. BED IN LOWEST POSITION, LOCKED. BED ALARM ON. BED SIDERAILS UPX2. CALL LIGHT WITHIN REACH.
--- NOTE | 2019-04-17 07:20 | NUR ---
RN CLOSING NOTES PATIENT AWAKE IN BED. A/OX4. NO SIGNS OF DISTRESS OR DISCOMFORT. BREATHING EVEN AND UNLABORED. HAS SIRIA MIDLINE, PATENT AND INTACT, NO SIGNS OF REDNESS OR INFILTRATION. HAS LCW CATH INTACT, HAS 2 R UPPER BACK DRAINS INTACT, DRAINING SEROUS FLUID. HAS ILEOSTOMY BAG IN PLACE. ALL NEEDS MET. NO SIGNIFICANT CHANGES THROUGH THE NIGHT. PATIENT KEPT CLEAN DRY AND COMFORTABLE. BED IN LOW LOCKED POSITION WITH SIDE RAILS X2. CALL LIGHT WITHIN REACH. WILL CONTINUE TO MONITOR.
[2019-04-17 07:30] VITALS: BP 123/79
[2019-04-17] MEDS: SEVELAMER CARBONATE 0.8 GM POWD.PACK PO SCH ×3 (08:00→17:33)
[2019-04-17] MEDS: CALCIUM ACETATE 667 MG TABLET PO SCH ×3 (08:00→17:33)
[2019-04-17] MEDS: PANTOPRAZOLE 40 MG TABLET.DR PO SCH (08:05)
[2019-04-17] MEDS: AMIODARONE HCL 200 MG TABLET PO SCH ×3 (08:57→17:00)
[2019-04-17] MEDS: FERROUS SULFATE (325 MG) 325 MG/TAB TABLET PO SCH (08:58)
[2019-04-17] MEDS: FOLIC ACID 1 MG TABLET PO SCH (08:58)
[2019-04-17] MEDS: GABAPENTIN 100 MG CAPSULE PO SCH ×3 (08:58→17:00)
[2019-04-17] MEDS: VIT B CMPLX 3/FA/VIT C/BIOTIN 1 TAB TABLET PO SCH (08:58)
[2019-04-17] MEDS: ASCORBIC ACID 500 MG TABLET PO SCH (08:59)
[2019-04-17] MEDS: ZINC SULFATE 220 MG CAPSULE PO SCH (08:59)
[2019-04-17] MEDS: PROSOURCE / PROSTAT (PYXIS) 30 ML UDC PO SCH ×3 (08:59→17:00)
[2019-04-17] MEDS: MIDODRINE HCL (5MG) 5 MG TABLET PO SCH ×3 (08:59→17:00)
--- NOTE | 2019-04-17 08:59 | NUR ---
MS RN NOTES HELD AM MEDS, ANTICIPATING HD.
[2019-04-17] MEDS: SILVER SULFADIAZINE 50 GM JAR TP SCH (09:20)
[2019-04-17] MEDS: HYDROCODONE/APAP 5/325MG 1 EACH TABLET PO PRN ×2 (11:54→21:57)
--- NOTE | 2019-04-17 17:33 | NUR ---
MS RN NOTES HELD PM MEDS, PATIENT CURRENTLY RECEIVING DIALYSIS.
--- NOTE | 2019-04-17 19:00 | NUR ---
MS RN NOTES PATIENT RECEIVED CLEANING ONLY PER HD NURSE, NO OUTPUT. PATIENT RESTING COMFORTABLY IN BED, WATCHING TV. REMAINS STABLE AT THIS TIME.
--- NOTE | 2019-04-17 19:40 | NUR ---
MS RN NOTES PATIENT SEEN BY DR. GIRON PER DR. GIRON, "WHEN PT IS D/C, HAVE PATIENT SEE ME IN MY OFFICE AND I WILL REFER HIM TO TERTIARY CARE."
[2019-04-17 20:00] VITALS: BP 141/64
[2019-04-17] MEDS: MICAFUNGIN SODIUM 100 MG in IV NS 0.9% 100 ML IV SCH (20:00)
[2019-04-17] MEDS: MEROPENEM 500 MG in IV NS 0.9% 50 ML IV SCH (20:17)
[2019-04-17] MEDS: DOCUSATE SODIUM 100 MG CAPSULE PO SCH (21:40)
[2019-04-17] MEDS: MIRTAZAPINE 15 MG TABLET PO SCH (21:40)
--- NOTE | 2019-04-18 07:27 | NUR ---
MS RN CLOSING NOTES PATIENT ASLEEP IN BED, AROUSALE TO VERBAL AND TACTILE STIMULI. HOB ELEVATED. NO SOB. DENIES ANY C/O PAIN NOR DISCOMFORT AT THIS TIME. SIRIA MIDLINE INTACT AND PATENT. ILEOSTOMY BAG SECURED IN PLACE WITH LIQUID AND FORMED STOOL. LEFT SUBCLAVIAN AGUILA CATH WITH DRESSING IN PLACE. JESÚS AV SHUNT WITH GOOD BRUIT/THRILL UPON PALPATION. RIGHT LATERAL UPPER CHESTWALL BILIARY DRAIN INTACT (DRAINS) BED IN LOWEST POSITION, LOCKED. BED ALARM ON. BED SIDERAILS UPX2. CALL LIGHT WITHIN REACH. IN NO APPARENT DISTRESS.
--- NOTE | 2019-04-18 07:39 | NUR ---
MS RN OPENING NOTES PATIENT RECEIVED AWAKE IN BED IN BED IN NO ACUTE SIGN SOF DISTRESS. A/OX4. ABLE TO MAKE NEEDS KNOWN, DENIES PAIN OR ANY DISCOMFORTS AT THIS TIME. ON ROOM AIR, BREATHING EVEN AND UNLABORED. SIRIA MIDLINE PATENT AND INTACT. PT WITH PERMACATH ON LEFT SUBCLAVIAN INTACT WITH DRESSING C/D/I. PT WITH TWO RIGHT HEPATIC DRAINS, NO OUTPUT AT THIS TIME. ILEOSTOMY BAG IN PLACE WITH NO NOTED OUTPUT AT THIS TIME. BED IN LOW LOCKED POSITION WITH SIDE RAILS X2. CALL LIGHT WITHIN REACH. WILL CONTINUE TO MONITOR.
[2019-04-18 08:00] VITALS: BP 138/80
[2019-04-18] MEDS: PANTOPRAZOLE 40 MG TABLET.DR PO SCH (08:29)
[2019-04-18] MEDS: VIT B CMPLX 3/FA/VIT C/BIOTIN 1 TAB TABLET PO SCH (08:30)
[2019-04-18] MEDS: ASCORBIC ACID 500 MG TABLET PO SCH (08:30)
[2019-04-18] MEDS: ZINC SULFATE 220 MG CAPSULE PO SCH (08:30)
[2019-04-18] MEDS: SEVELAMER CARBONATE 0.8 GM POWD.PACK PO SCH ×3 (08:30→17:06)
[2019-04-18] MEDS: FOLIC ACID 1 MG TABLET PO SCH (08:30)
[2019-04-18] MEDS: CALCIUM ACETATE 667 MG TABLET PO SCH ×3 (08:30→17:05)
[2019-04-18] MEDS: GABAPENTIN 100 MG CAPSULE PO SCH ×3 (08:31→17:06)
[2019-04-18] MEDS: FERROUS SULFATE (325 MG) 325 MG/TAB TABLET PO SCH (08:31)
[2019-04-18] MEDS: PROSOURCE / PROSTAT (PYXIS) 30 ML UDC PO SCH ×3 (08:34→17:05)
[2019-04-18] MEDS: MIDODRINE HCL (5MG) 5 MG TABLET PO SCH ×3 (08:35→17:00)
[2019-04-18] MEDS: AMIODARONE HCL 200 MG TABLET PO SCH ×3 (08:36→17:06)
[2019-04-18] MEDS: SILVER SULFADIAZINE 50 GM JAR TP SCH (08:40)
--- NOTE | 2019-04-18 08:41 | NUR ---
RN NOTES MIDODRINE HELD, BP 138/80 MMHG. WILL CONTINUE TO MONITOR
[2019-04-18] MEDS: HYDROCODONE/APAP 5/325MG 1 EACH TABLET PO PRN ×3 (08:45→22:05)
--- NOTE | 2019-04-18 08:49 | NUR ---
RN NOTES/PAIN MANAGEMENT PT C/O GENERALIZED PAIN WITH SCALE OF 7/10. PRN NORCO 5/325 MG PO GIVEN AT 0845. WILL CONTINUE TO MONITOR AND REASSESS PT.
--- NOTE | 2019-04-18 13:23 | NUR ---
RN NOTES RECEIVED CALL FROM [facility] MICROBIOLOGY DEPT THAT PT IS POSITIVE FOR VRE. DR EMELY RICHEY MADE AWARE. PT PLACED ON CONTACT ISOLATION. WILL CONTINUE TO MONITOR.
[2019-04-18] MEDS: LINEZOLID RTU BAG 600 MG in PREMIX 1 EA IV SCH ×2 (15:30→22:43)
[2019-04-18 16:00] VITALS: BP 164/99
--- NOTE | 2019-04-18 17:24 | NUR ---
RN NOTES/PAIN MANAGEMENT PT C/O GENERALIZED PAIN WITH SCALE OF 6/10. PRN NORCO 5/325 MG PO GIVEN AT 1723. WILL CONTINUE TO MONITOR AND REASSESS PT.
--- NOTE | 2019-04-18 18:34 | NUR ---
MS RN CLOSING NOTES PATIENT IN BED AWAKE AND WATCHING TV AT THIS TIME. A/O X4, SAME ABLE TO MAKE NEEDS KNOWN. ON ROOM AIR, TOLERATING WELL WITH NO ACUTE DISTRESS NOTED THROUGHOUT THE DAY. CONTACT PRECAUTIONS FOR VRE MAINTAINED. SIRIA MIDLINE INTACT AND PATENT. ILEOSTOMY BAG SECURED AND IN PLACE WITH LIQUID AND FORMED STOOL NOTED. LEFT SUBCLAVIAN AGUILA CATH WITH DRESSING C/D/I. JESÚS AV SHUNT IN PLACE WITH POSITIVE BRUIT/THRILL UPON PALPATION. TWO RIGHT LATERAL UPPER CHEST WALL BILIARY DRAINS BOTH IN PLACE AND PATENT, NO OUTPUT NOTED THIS SHIFT. SAFETY MEASURES KEPT IN PLACE. BED IN LOWEST POSITION AND LOCKED WITH BED SIDE-RAILS UPX2. CALL LIGHT WITHIN REACH. ALL NEEDS AND CARE ATTENDED WELL. WILL ENDORSE TO CHICKEN BUYER NURSE FOR SADIA.
--- NOTE | 2019-04-18 19:30 | NUR ---
MS RN OPENING NOTE RECEIVED PATIENT ON ISOLATION FOR VRE, CONTACT ISOLATION. PATIENT IN BED. A/OX4. TOLERATING ROOM AIR. RESPIRATIONS ARE EVEN AND UNLABORED. NO S/S SOB NOTE. IN NO APPARENT DISTRESS. IV ACCESS IN SIRIA MIDLINE PATENT AND RUNNING TKO, LEFT SUBCLAVIAN AGUILA CATH, JESÚS SHUNT NOT BEING USED. ILEOSTOMY IS PRESENT, STOMA IS PINK WITH NO SIGNS OF INFECTION. TWO BILIARY DRAINS LOCATED ON THE RIGHTSIDE ABDOMEN/BACK, DRAINING TO GRAVITY. BE IS LOW AND LOCKED, HOB ELEVATED IN SEMI FOWLERS, SIDE RAILS UP X2, CALL LIGHT WITHIN REACH. WILL CONTINUE TO MONITOR.
[2019-04-18] MEDS: MEROPENEM 500 MG in IV NS 0.9% 50 ML IV SCH (20:14)
[2019-04-18 20:46] VITALS: BP 136/69
[2019-04-18] MEDS: MICAFUNGIN SODIUM 100 MG in IV NS 0.9% 100 ML IV SCH (21:07)
[2019-04-18] MEDS: MIRTAZAPINE 15 MG TABLET PO SCH (21:44)
[2019-04-18] MEDS: DOCUSATE SODIUM 100 MG CAPSULE PO SCH (21:44)
--- NOTE | 2019-04-18 22:06 | NUR ---
MS RN NOTE ADMINISTERED PRN NORCO 5MG FOR PAIN 7/10 IN BACK. WILL CONTINUE TO MONITOR.
--- NOTE | 2019-04-19 06:27 | NUR ---
MS RN CLOSING NOTE RECEIVED PATIENT ON ISOLATION FOR VRE, CONTACT ISOLATION. PATIENT IN BED. A/OX4. TOLERATING ROOM AIR. RESPIRATIONS ARE EVEN AND UNLABORED. NO SOB NOTE.NO DISTRESS NOTED. IV ACCESS MAINTAINED IN SIRIA MIDLINE PATENT AND SALINE LOCKED, LEFT SUBCLAVIAN AGUILA CATH, JESÚS SHUNT NOT BEING USED. ILEOSTOMY IS PRESENT, STOMA IS PINK WITH NO SIGNS OF INFECTION, CHANGED OUTPUT 500ML GREEN LIQUID AND SEMI FORMED. TWO BILIARY DRAINS LOCATED ON THE RIGHTSIDE ABDOMEN/BACK, DRAINING TO GRAVITY, NO OUTOUT NOTED. BED IS LOW AND LOCKED, HOB IS FLAT, SIDE RAILS UP X2, CALL LIGHT WITHIN REACH. WILL ENDORSE TO NEXT SHIFT.
[2019-04-19 07:14] LABS: BASOPHILS # (AUTO) 0.1 /CMM (0.0-0.2); BASOPHILS % (AUTO) 1.2 % (0.0-2.0); EOSINOPHILS % (AUTO) 5.9 % (0.0-6.0); HEMATOCRIT 24 % (39-51); HEMOGLOBIN 7.6 g/dL (13.5-17.5); LYMPHOCYTES # (AUTO) 1.2 /CMM (0.8-4.8); LYMPHOCYTES % (AUTO) 26.9 % (20.0-44.0); MEAN CORPUSCULAR HGB CONC 32 g/dl (31.0-36.0); MEAN CORPUSCULAR VOLUME 86 fL (80-96); MONOCYTES # (AUTO) 0.4 /CMM (0.1-1.30); MONOCYTES % (AUTO) 8.7 % (2.0-12.0); NEUTROPHILS # (AUTO) 2.6 /CMM (1.8-8.9); NEUTROPHILS % (AUTO) 57.3 % (43.0-81.0); PLATELET COUNT (AUTO) 139 /CMM (150-450); RED BLOOD CELL COUNT(AUTO) 2.77 MIL/uL (4.5-6.0); WHITE BLOOD COUNT (AUTO) 4.6 K/uL (4.3-11.0)
[2019-04-19 07:37] LABS: MAGNESIUM 1.6 mg/dL (1.8-2.4)
[2019-04-19 07:54] LABS: POTASSIUM 5.4 mmol/L (3.5-5.1)
[2019-04-19 07:55] LABS: CREATININE 7.5 mg/dL (0.6-1.3)
[2019-04-19 08:00] VITALS: BP 158/89
[2019-04-19] MEDS: SEVELAMER CARBONATE 0.8 GM POWD.PACK PO SCH ×3 (08:00→17:17)
--- NOTE | 2019-04-19 08:00 | NUR ---
RN NOTES PATIENT IN BED RESTING. PATIENT ALERT, ORIENTED X4. NO SOB OR ACUTE DISTRESS NOTED. PATIENT WITH ILEOSTOMY AND TWO BILIARY DRAINS INTACT. BED IN LOW LOCKED POSITION. CALL LIGHT WITHIN REACH. WILL CONTINUE TO MONITOR.
[2019-04-19] MEDS: LINEZOLID RTU BAG 600 MG in PREMIX 1 EA IV SCH (08:30)
[2019-04-19] MEDS: AMIODARONE HCL 200 MG TABLET PO SCH ×3 (08:30→17:17)
[2019-04-19] MEDS: VIT B CMPLX 3/FA/VIT C/BIOTIN 1 TAB TABLET PO SCH (08:31)
[2019-04-19] MEDS: ZINC SULFATE 220 MG CAPSULE PO SCH (08:31)
[2019-04-19] MEDS: GABAPENTIN 100 MG CAPSULE PO SCH ×3 (08:31→17:19)
[2019-04-19] MEDS: FERROUS SULFATE (325 MG) 325 MG/TAB TABLET PO SCH (08:31)
[2019-04-19] MEDS: FOLIC ACID 1 MG TABLET PO SCH (08:31)
[2019-04-19] MEDS: ASCORBIC ACID 500 MG TABLET PO SCH (08:31)
[2019-04-19] MEDS: PANTOPRAZOLE 40 MG TABLET.DR PO SCH (08:31)
[2019-04-19] MEDS: CALCIUM ACETATE 667 MG TABLET PO SCH ×3 (08:31→17:17)
[2019-04-19] MEDS: SILVER SULFADIAZINE 50 GM JAR TP SCH (08:39)
[2019-04-19] MEDS: MIDODRINE HCL (5MG) 5 MG TABLET PO SCH ×3 (09:00→17:00)
[2019-04-19] MEDS: PROSOURCE / PROSTAT (PYXIS) 30 ML UDC PO SCH ×3 (09:07→17:19)
[2019-04-19] MEDS: HYDROCODONE/APAP 5/325MG 1 EACH TABLET PO PRN ×2 (09:24→20:15)
[2019-04-19 16:00] VITALS: BP 152/98
--- NOTE | 2019-04-19 19:25 | NUR ---
MS RN NOTES PATIENT IN BED RESTING NO SOB OR ACUTE DISTRESS NOTED. ALL DUE MEDICATIONS ADMINISTERED. ALL NEEDS MET. WILL ENDORSE TO PM SHIFT.
[2019-04-19] MEDS: MEROPENEM 500 MG in IV NS 0.9% 50 ML IV SCH (19:30)
--- NOTE | 2019-04-19 19:30 | NUR ---
MS RN OPENING NOTE RECEIVED PATIENT ON ISOLATION FOR VRE, CONTACT ISOLATION. PATIENT IN BED. A/OX4. TOLERATING ROOM AIR. RESPIRATIONS ARE EVEN AND UNLABORED. NO S/S SOB NOTE. IN NO APPARENT DISTRESS. STATED HE WAS IN PAIN, INORMED HIM WILL BRING PAIN MEDICATION SOON DONE GETTING REPORT. IV ACCESS IN SIRIA MIDLINE PATENT AND SALINE LOCKED, LEFT SUBCLAVIAN AGUILA CATH, JESÚS SHUNT NOT BEING USED. ILEOSTOMY IS PRESENT, STOMA IS PINK WITH NO SIGNS OF INFECTION, WILL EMPTY. TWO BILIARY DRAINS LOCATED ON THE RIGHTSIDE ABDOMEN/BACK, DRAINING TO GRAVITY. BE IS LOW AND LOCKED, HOB FLAT, SIDE RAILS UP X2, CALL LIGHT WITHIN REACH. WILL CONTINUE TO MONITOR.
[2019-04-19 20:00] VITALS: BP 173/103
[2019-04-19] MEDS: LINEZOLID 600 MG TABLET PO SCH (20:15)
--- NOTE | 2019-04-19 20:16 | NUR ---
MS RN NOTE ADMINISTERED PRN NORCO 5MG FOR PAIN 7 IN BACK. WILL CONTINUE TO MONITOR.
[2019-04-19 20:31] VITALS: BP 173/103
[2019-04-19] MEDS: MIRTAZAPINE 15 MG TABLET PO SCH (21:28)
[2019-04-19] MEDS: DOCUSATE SODIUM 100 MG CAPSULE PO SCH ×3 (21:28→21:39)
[2019-04-19] MEDS: MICAFUNGIN SODIUM 100 MG in IV NS 0.9% 100 ML IV SCH (21:29)
[2019-04-19 21:30] VITALS: BP 143/77
[2019-04-19 21:58] VITALS: BP 143/77
[2019-04-20] MEDS: HYDROCODONE/APAP 5/325MG 1 EACH TABLET PO PRN ×3 (00:21→21:37)
[2019-04-20 06:26] LABS: CALCIUM, SERUM 7.7 mg/dL (8.5-10.1); CREATININE 5.7 mg/dL (0.6-1.3); POTASSIUM 5.1 mmol/L (3.5-5.1)
--- NOTE | 2019-04-20 06:55 | NUR ---
MS RN CLOSING NOTE RECEIVED PATIENT ON ISOLATION FOR VRE, CONTACT ISOLATION. PATIENT IN BED. A/OX4. TOLERATING ROOM AIR. RESPIRATIONS ARE EVEN AND UNLABORED. NO SOB NOTE.NO DISTRESS NOTED. IV ACCESS MAINTAINED IN SIRIA MIDLINE PATENT AND SALINE LOCKED, LEFT SUBCLAVIAN AGUILA CATH, JESÚS SHUNT NOT BEING USED. ILEOSTOMY IS PRESENT, STOMA IS PINK WITH NO SIGNS OF INFECTION, EMPTIED MULTIPLE TIMES. TWO BILIARY DRAINS LOCATED ON THE RIGHTSIDE ABDOMEN/BACK, DRAINING TO GRAVITY, NO OUTOUT NOTED. BED IS LOW AND LOCKED, HOB IS FLAT, SIDE RAILS UP X2, CALL LIGHT WITHIN REACH. WILL ENDORSE TO NEXT SHIFT.
[2019-04-20 08:00] VITALS: BP 124/93
[2019-04-20] MEDS: PANTOPRAZOLE 40 MG TABLET.DR PO SCH (08:29)
[2019-04-20] MEDS: CALCIUM ACETATE 667 MG TABLET PO SCH ×3 (08:53→18:51)
[2019-04-20] MEDS: SEVELAMER CARBONATE 0.8 GM POWD.PACK PO SCH ×3 (08:53→18:51)
[2019-04-20] MEDS: MIDODRINE HCL (5MG) 5 MG TABLET PO SCH ×3 (09:00→17:00)
[2019-04-20] MEDS: VIT B CMPLX 3/FA/VIT C/BIOTIN 1 TAB TABLET PO SCH (09:25)
[2019-04-20] MEDS: ZINC SULFATE 220 MG CAPSULE PO SCH (09:25)
[2019-04-20] MEDS: AMIODARONE HCL 200 MG TABLET PO SCH ×3 (09:25→17:00)
[2019-04-20] MEDS: LINEZOLID 600 MG TABLET PO SCH ×2 (09:25→21:02)
[2019-04-20] MEDS: FOLIC ACID 1 MG TABLET PO SCH (09:25)
[2019-04-20] MEDS: FERROUS SULFATE (325 MG) 325 MG/TAB TABLET PO SCH (09:25)
[2019-04-20] MEDS: ASCORBIC ACID 500 MG TABLET PO SCH (09:25)
[2019-04-20] MEDS: GABAPENTIN 100 MG CAPSULE PO SCH ×3 (09:39→17:00)
[2019-04-20] MEDS: PROSOURCE / PROSTAT (PYXIS) 30 ML UDC PO SCH ×3 (09:39→17:00)
[2019-04-20] MEDS: SILVER SULFADIAZINE 50 GM JAR TP SCH (09:40)
--- NOTE | 2019-04-20 09:41 | NUR ---
MS RN NOTES HELD MICHARINE B/P 124/93
[2019-04-20] MEDS ORDERED: MICA100V IV (12:06)
[2019-04-20] MEDS ORDERED: MERO500P IV (12:06)
[2019-04-20] MEDS ORDERED: Linezolid PO (12:06)
--- NOTE | 2019-04-20 13:58 | NUR ---
MS RN NOTES HELD MIDODRINE B/P 143/90
[2019-04-20 16:00] VITALS: BP 160/81
--- NOTE | 2019-04-20 19:10 | NUR ---
MS RN NOTE RECEIVED PT IN STABLE CONDITION, NOTED TO BE RESTING IN BED, EASILY AWAKE WHEN NAME IS CALLED. NO SIGNS OF SOB OR DISTRESS, NO C/O PAIN OR N/V. R BRACHIAL MIDLINE IN PLACE. NOTED WITH ILEOSTOMY INTACT. ALL CURRENT NEEDS ATTENDED TO. BED LOW, LOCKED, UPPER RAILS UP, ISOLATION PRECAUTIONS IN PLACE, AND CALL LIGHT WITHIN REACH. WILL CONT. TO MONITOR.
--- NOTE | 2019-04-20 19:20 | NUR ---
MS RN CLOSING NOTES PATIENT RESTING COMFORTABLY IN BED. HOB ELEVATED. NO SOB. DENIES ANY C/O PAIN NOR DISCOMFORT AT THIS TIME. SIRIA MIDLINE INTACT AND PATENT, NEW INSERTION WARD WELL #17 GAUGE. ILEOSTOMY BAG SECURED IN PLACE. LEFT SUBCLAVIAN AGUILA CATH WITH DRESSING IN PLACE. JESÚS AV SHUNT WITH GOOD BRUIT/THRILL UPON PALPATION. RIGHT LATERAL UPPER BACK BILIARY DRAIN INTACT (DRAINS) BED IN LOWEST POSITION, LOCKED. BED ALARM ON. BED SIDERAILS UPX2. CALL LIGHT WITHIN REACH. IN NO APPARENT DISTRESS.
[2019-04-20] MEDS: MEROPENEM 500 MG in IV NS 0.9% 50 ML IV SCH (19:59)
[2019-04-20 20:00] VITALS: BP 149/84
[2019-04-20] MEDS: MICAFUNGIN SODIUM 100 MG in IV NS 0.9% 100 ML IV SCH (20:47)
[2019-04-20] MEDS: DOCUSATE SODIUM 100 MG CAPSULE PO SCH (21:02)
[2019-04-20] MEDS: MIRTAZAPINE 15 MG TABLET PO SCH (21:02)
[2019-04-21] MEDS: HYDROCODONE/APAP 5/325MG 1 EACH TABLET PO PRN ×4 (02:11→22:29)
--- NOTE | 2019-04-21 06:42 | NUR ---
MS RN NOTE PT REMAINS IN STABLE CONDITION, NOTED TO BE RESTING IN BED, EASILY AWAKE WHEN NAME IS CALLED. NO SIGNS OF SOB OR DISTRESS, NO C/O PAIN OR N/V. R BRACHIAL MIDLINE IN PLACE. NOTED WITH ILEOSTOMY INTACT. ALL CURRENT NEEDS ATTENDED TO. BED LOW, LOCKED, UPPER RAILS UP, ISOLATION PRECAUTIONS IN PLACE, AND CALL LIGHT WITHIN REACH. WILL CONT. TO MONITOR AND ENDORSE TO NEXT SHIFT FOR SADIA.
[2019-04-21 07:05] LABS: CALCIUM, SERUM 8.7 mg/dL (8.5-10.1); CREATININE 6.5 mg/dL (0.6-1.3); POTASSIUM 5.6 mmol/L (3.5-5.1)
--- NOTE | 2019-04-21 07:15 | NUR ---
M/S RN NOTES PATIENT AWAKE, LYING IN BED. ALERT AND ORIENTED X4. PATIENT IN NO RESPIRATORY DISTRESS, NO C/O PAIN AT THIS TIME. SKIN WARM TO TOUCH, IV MIDLINE ON THE RT ARM INTACT AND PATENT. ILEOSTOMY INTACT AND EMPTIED. AGUILA CATH ON THE LEFT SUBCLAVIAN, DRESSING INTACT, PATIENT ALSO HAS JESÚS SHUNT NOT IN USE. PATIENT'S NEEDS ATTENDED, BED ON LOWEST LOCKED POSITION, CALL LIGHT WITHIN REACH. WILL CONTINUE TO MONITOR.
[2019-04-21 07:30] VITALS: BP 177/97
[2019-04-21] MEDS: SEVELAMER CARBONATE 0.8 GM POWD.PACK PO SCH ×3 (07:44→18:57)
[2019-04-21] MEDS: PANTOPRAZOLE 40 MG TABLET.DR PO SCH (07:44)
[2019-04-21] MEDS: CALCIUM ACETATE 667 MG TABLET PO SCH ×3 (07:44→18:12)
[2019-04-21] MEDS: FOLIC ACID 1 MG TABLET PO SCH (08:05)
[2019-04-21] MEDS: LINEZOLID 600 MG TABLET PO SCH ×2 (08:05→20:18)
[2019-04-21] MEDS: AMIODARONE HCL 200 MG TABLET PO SCH ×3 (08:07→16:41)
[2019-04-21] MEDS: ZINC SULFATE 220 MG CAPSULE PO SCH (08:07)
[2019-04-21] MEDS: GABAPENTIN 100 MG CAPSULE PO SCH ×3 (08:07→16:41)
[2019-04-21] MEDS: MIDODRINE HCL (5MG) 5 MG TABLET PO SCH ×3 (08:07→16:42)
[2019-04-21] MEDS: FERROUS SULFATE (325 MG) 325 MG/TAB TABLET PO SCH (08:07)
[2019-04-21] MEDS: PROSOURCE / PROSTAT (PYXIS) 30 ML UDC PO SCH ×3 (08:08→16:42)
[2019-04-21] MEDS: ASCORBIC ACID 500 MG TABLET PO SCH (08:08)
[2019-04-21] MEDS: VIT B CMPLX 3/FA/VIT C/BIOTIN 1 TAB TABLET PO SCH (08:08)
[2019-04-21] MEDS: SILVER SULFADIAZINE 50 GM JAR TP SCH (08:12)
[2019-04-21] MEDS: NEOMY SULF/BACITRAC ZN/POLY 15 GM TUBE TP SCH (12:06)
--- NOTE | 2019-04-21 12:30 | NUR ---
M/S RN NOTES TAYLOR AT BEDSIDE, PATIENT GETTING DIALYZED. MEDICATIONS NOT ADMINISTERED. WILL CONTINUE TO MONITOR.
--- NOTE | 2019-04-21 16:43 | NUR ---
M/S RN NOTES PATIENT'S MEDICATION MIDODRINE 5MG NOT ADMINISTERED, BP AT 161/88, 78. WILL CONTINUE TO MONITOR PATIENT.
[2019-04-21] MEDS: MEROPENEM 500 MG in IV NS 0.9% 50 ML IV SCH (18:38)
--- NOTE | 2019-04-21 19:45 | NUR ---
RN NOTES RECEIVED PT. AWAKE SITTING ON THE CHAIR, ILEOSTOMY IS LEAKING, WITH RIGHT LATERAL BILIARY DRAINAGE AND IT'S INTACT, MIDLINE IN PLACE ON THE RIGHT UPPER ARM, DENIES PAIN AT THIS TIME, NO SOB, CALL LIGHT WITHIN REACH, [id number], WILL CONTINUE TO MONITOR
[2019-04-21 20:00] VITALS: BP 133/85
[2019-04-21] MEDS: MICAFUNGIN SODIUM 100 MG in IV NS 0.9% 100 ML IV SCH (20:19)
[2019-04-21] MEDS: DOCUSATE SODIUM 100 MG CAPSULE PO SCH (22:20)
[2019-04-21] MEDS: MIRTAZAPINE 15 MG TABLET PO SCH (22:20)
--- NOTE | 2019-04-21 22:20 | NUR ---
RN NOTES COMPLAINED OF GENERALIZED PAIN- NORCO 5/325MG PO GIVEN ORDERED, V/S STABLE
[2019-04-22 06:50] LABS: CREATININE 5.3 mg/dL (0.6-1.3); POTASSIUM 5.4 mmol/L (3.5-5.1)
--- NOTE | 2019-04-22 07:00 | NUR ---
RN NOTES AWAKE, MORNING CARE RENDERED, BILIARY DRAIN IN PLACE, ILEOSTOMY IN PLACE, DENIES PAIN, NO SOB, CALL LIGHT WITHIN REACH, SIDERAILSUPX2, PT. NEEDS ATTENDED
--- NOTE | 2019-04-22 07:15 | NUR ---
MS RN OPENING NOTES RECEIVED PATIENT IN BED, ALERT AND AWAKE ORIENTED X4. HOB ELEVATED. DENIES ANY C/O PAIN NOR DISCOMFORT AT THIS TIME. PER PATIENT, SLEPT WELL LAST NIGHT. RIGHT BRACHIAL MIDLINE # 18 INTACT AND PATENT. ILEOSTOMY BAG IN PLACE AND SECURED. RIGHT UPPER BACK BILIARY DRAIN X2 INTACT. BED LOWEST POSITION, LOCKED. BED ALARM ON. CALL LIGHT WITHIN REACH.
[2019-04-22 08:00] VITALS: BP 148/82
[2019-04-22] MEDS: CALCIUM ACETATE 667 MG TABLET PO SCH ×3 (08:29→17:32)
[2019-04-22] MEDS: PANTOPRAZOLE 40 MG TABLET.DR PO SCH (08:29)
[2019-04-22] MEDS: LINEZOLID 600 MG TABLET PO SCH ×2 (08:29→21:01)
[2019-04-22] MEDS: FOLIC ACID 1 MG TABLET PO SCH (08:29)
[2019-04-22] MEDS: VIT B CMPLX 3/FA/VIT C/BIOTIN 1 TAB TABLET PO SCH (08:29)
[2019-04-22] MEDS: GABAPENTIN 100 MG CAPSULE PO SCH ×3 (08:29→16:18)
[2019-04-22] MEDS: ZINC SULFATE 220 MG CAPSULE PO SCH (08:30)
[2019-04-22] MEDS: FERROUS SULFATE (325 MG) 325 MG/TAB TABLET PO SCH (08:30)
[2019-04-22] MEDS: ASCORBIC ACID 500 MG TABLET PO SCH (08:30)
[2019-04-22] MEDS: PROSOURCE / PROSTAT (PYXIS) 30 ML UDC PO SCH ×3 (08:30→16:18)
[2019-04-22] MEDS: SEVELAMER CARBONATE 0.8 GM POWD.PACK PO SCH ×3 (08:30→17:36)
[2019-04-22] MEDS: MIDODRINE HCL (5MG) 5 MG TABLET PO SCH ×3 (08:31→16:18)
[2019-04-22] MEDS: AMIODARONE HCL 200 MG TABLET PO SCH ×3 (08:31→16:18)
--- NOTE | 2019-04-22 08:31 | NUR ---
MS RN NOTES HELD MIDODRINE B/P 148/82
[2019-04-22] MEDS: SILVER SULFADIAZINE 50 GM JAR TP SCH (08:33)
[2019-04-22] MEDS: NEOMY SULF/BACITRAC ZN/POLY 15 GM TUBE TP SCH (08:38)
--- NOTE | 2019-04-22 12:56 | NUR ---
MS RN NOTES HELD MIDODRINE B/P 161/90
[2019-04-22] MEDS: HYDROCODONE/APAP 5/325MG 1 EACH TABLET PO PRN ×3 (12:59→21:28)
[2019-04-22 16:04] VITALS: BP 166/98
--- NOTE | 2019-04-22 16:18 | NUR ---
MS RN NOTES HELD MIDODRINE B/P 160/90
--- NOTE | 2019-04-22 18:51 | NUR ---
MS RN CLOSING NOTES ALERT AND AWAKE ORIENTED X4. HOB ELEVATED. NO SOB. DENIES ANY C/O PAIN NOR DISCOMFORT AT THIS TIME. RIGHT BRACHIAL MIDLINE # 18 INTACT AND PATENT. ILEOSTOMY BAG CHANGED, IN PLACE AND SECURED. RIGHT UPPER BACK BILIARY DRAIN X2 INTACT WITH DRESSING CHANGED DUE TO LOOSE DRESSING. RECEIVED [facility] APPT DATE FROM , SCHEDULED ON APR 30. BED LOWEST POSITION, LOCKED. BED ALARM ON. CALL LIGHT WITHIN REACH. IN NO APPARENT DISTRESS.
--- NOTE | 2019-04-22 19:30 | NUR ---
RN NOTES RECEIVED PT. AWAKE ON BED, A/OX4, WITH ILEOSTOMY BAG IN PLACE, RIGHT LATERAL BILIARY DRAINAGE IN PLACE, DENIES PAIN AT THIS TIME, NO SOB, CALL LIGHT WITHINR EACH, SIDERAILUPX2, CONTINUE TO MONITOR
[2019-04-22 20:00] VITALS: BP 137/72
[2019-04-22] MEDS: MEROPENEM 500 MG in IV NS 0.9% 50 ML IV SCH (20:06)
[2019-04-22] MEDS: MICAFUNGIN SODIUM 100 MG in IV NS 0.9% 100 ML IV SCH (20:58)
[2019-04-22] MEDS: MIRTAZAPINE 15 MG TABLET PO SCH (21:02)
[2019-04-22] MEDS: DOCUSATE SODIUM 100 MG CAPSULE PO SCH (21:02)
--- NOTE | 2019-04-22 21:30 | NUR ---
RN NOTES COMPLAINED OF GENERALIZED PAIN- NORCO 5/325 MG PO GIVEN ORDERED, V/S STABLE
--- NOTE | 2019-04-23 06:43 | NUR ---
RN NOTES AWAKE, MORNING CARE RENDERED, CALL LIGHT WITHIN REACH, BILIARY DRAINAGE IN PLACE. DENIES PAIN, NO SOB, CALL LIGHT WITHIN REACH, SIDERAILSUPX2, PT. NEEDS ATTENDED
[2019-04-23 06:50] LABS: CREATININE 6.4 mg/dL (0.6-1.3); POTASSIUM 5.7 mmol/L (3.5-5.1)
[2019-04-23 07:30] VITALS: BP 153/82
[2019-04-23] MEDS: PANTOPRAZOLE 40 MG TABLET.DR PO SCH (07:30)
[2019-04-23] MEDS: CALCIUM ACETATE 667 MG TABLET PO SCH ×3 (08:00→18:18)
[2019-04-23] MEDS: SEVELAMER CARBONATE 0.8 GM POWD.PACK PO SCH ×3 (08:00→18:18)
[2019-04-23] MEDS: FERROUS SULFATE (325 MG) 325 MG/TAB TABLET PO SCH (09:00)
[2019-04-23] MEDS: ASCORBIC ACID 500 MG TABLET PO SCH (09:00)
[2019-04-23] MEDS: FOLIC ACID 1 MG TABLET PO SCH (09:00)
[2019-04-23] MEDS: VIT B CMPLX 3/FA/VIT C/BIOTIN 1 TAB TABLET PO SCH (09:00)
[2019-04-23] MEDS: ZINC SULFATE 220 MG CAPSULE PO SCH (09:00)
[2019-04-23] MEDS: MIDODRINE HCL (5MG) 5 MG TABLET PO SCH ×3 (09:00→17:00)
[2019-04-23] MEDS: GABAPENTIN 100 MG CAPSULE PO SCH ×3 (09:00→18:19)
[2019-04-23] MEDS: PROSOURCE / PROSTAT (PYXIS) 30 ML UDC PO SCH ×3 (09:00→18:18)
[2019-04-23] MEDS: AMIODARONE HCL 200 MG TABLET PO SCH ×3 (09:00→18:19)
--- NOTE | 2019-04-23 09:15 | NUR ---
MS RN NOTES AM MEDS HELD ANTICIPATING HD TODAY
[2019-04-23] MEDS: LINEZOLID 600 MG TABLET PO SCH (10:19)
[2019-04-23] MEDS: SILVER SULFADIAZINE 50 GM JAR TP SCH (10:20)
[2019-04-23] MEDS: NEOMY SULF/BACITRAC ZN/POLY 15 GM TUBE TP SCH (10:20)
[2019-04-23] MEDS: HYDROCODONE/APAP 5/325MG 1 EACH TABLET PO PRN ×2 (10:25→18:23)
[2019-04-23] MEDS: NYSTATIN TOP POWDER 15 GM BOTTLE TP SCH ×2 (12:31→18:20)
--- NOTE | 2019-04-23 13:56 | NUR ---
MS RN NOTES HELD MEDS ANTICIPATING HD
--- NOTE | 2019-04-23 17:00 | NUR ---
MS RN NOTES HELD DMITRIY B/P 143/82
[2019-04-23 18:19] VITALS: BP 143/82
--- NOTE | 2019-04-23 19:20 | NUR ---
MS LAMP MECHANIC NOTES ALERT AND AWAKE ORIENTED X4. NO SOB. DENIES ANY C/O PAIN NOR DISCOMFORT AT THIS TIME. RIGHT BRACHIAL MIDLINE # 18 INTACT AND PATENT. ILEOSTOMY BAG CHANGED, IN PLACE AND SECURED. RIGHT UPPER BACK BILIARY DRAIN X2 INTACT WITH DRESSING CHANGED DUE TO LOOSE DRESSING. REPORT AND DISCHARGE INSTRUCTIONS AND CD ROM FOR APR APPT AT [facility] ALONG WITH PACKET EXPLAINED TO DEVEN AT [facility]. ALL BELONGINGS ACCOUNTED FOR. DISCHARGE INSTRUCTIONS AND PACKET GIVEN TO EMT. PATIENT LEFTY VIA GURNEY IN STABLE CONDITION VIA AMBULANCE.
== END 2019-04-23 20:30 | DRG 871 ==
LOC: ER 13:54 → MEDSG2 17:13
PROVIDERS: ADMIT Nurse Practitioner Acute Care; ATTEND Nurse Practitioner Acute Care
PROC: 0W9G30Z Drainage of Peritoneal Cavity with Drainage Device, Percutaneous Approach (ICD-10-PCS; principal; 2019-04-15)
PROC: 5A1D70Z Performance of Urinary Filtration, Intermittent, Less than 6 Hours Per Day (ICD-10-PCS; principal; 2019-04-15)
PROC: 05H933Z Insertion of Infusion Device into Right Brachial Vein, Percutaneous Approach (ICD-10-PCS; 2019-04-20)
PROC: 5A1D70Z Performance of Urinary Filtration, Intermittent, Less than 6 Hours Per Day (ICD-10-PCS; 2019-04-21)
PROC: 5A1D70Z Performance of Urinary Filtration, Intermittent, Less than 6 Hours Per Day (ICD-10-PCS; 2019-04-23)
DX: A41.81 Sepsis due to Enterococcus (principal); J18.9 Pneumonia, unspecified organism; K75.0 Abscess of liver; N18.6 End stage renal disease; I21.A1 Myocardial infarction type 2; E43 Unspecified severe protein-calorie malnutrition; J44.0 Chronic obstructive pulmonary disease with (acute) lower respiratory infection; C78.6 Secondary malignant neoplasm of retroperitoneum and peritoneum; D68.59 Other primary thrombophilia; I13.2 Hypertensive heart and chronic kidney disease with heart failure and with stage 5 chronic kidney disease, or end stage renal disease; I50.20 Unspecified systolic (congestive) heart failure; E11.52 Type 2 diabetes mellitus with diabetic peripheral angiopathy with gangrene; L97.429 Non-pressure chronic ulcer of left heel and midfoot with unspecified severity; Z16.21 Resistance to vancomycin; A41.2 Sepsis due to unspecified staphylococcus; Z48.03 Encounter for change or removal of drains; Y92.89 Other specified places as the place of occurrence of the external cause; E11.22 Type 2 diabetes mellitus with diabetic chronic kidney disease; Z99.2 Dependence on renal dialysis; E78.5 Hyperlipidemia, unspecified; I25.10 Atherosclerotic heart disease of native coronary artery without angina pectoris; K21.9 Gastro-esophageal reflux disease without esophagitis; M10.9 Gout, unspecified; E11.42 Type 2 diabetes mellitus with diabetic polyneuropathy; F32.9 Major depressive disorder, single episode, unspecified; E87.5 Hyperkalemia; R16.1 Splenomegaly, not elsewhere classified; Z93.3 Colostomy status; Z93.2 Ileostomy status; Z95.810 Presence of automatic (implantable) cardiac defibrillator; E11.65 Type 2 diabetes mellitus with hyperglycemia; R53.1 Weakness; M19.90 Unspecified osteoarthritis, unspecified site; G89.29 Other chronic pain; F17.210 Nicotine dependence, cigarettes, uncomplicated; Z94.7 Corneal transplant status; E11.610 Type 2 diabetes mellitus with diabetic neuropathic arthropathy; E11.621 Type 2 diabetes mellitus with foot ulcer; L97.519 Non-pressure chronic ulcer of other part of right foot with unspecified severity; D63.1 Anemia in chronic kidney disease; Z68.26 Body mass index [BMI] 26.0-26.9, adult; Q78.9 Osteochondrodysplasia, unspecified
CPT/HCPCS: 36415; 71045-TC; 71250-TC; 75989; 75989-TC; 80048-TC; 80076-TC; 80202-TC; 81000-TC; 82728-TC; 83540-TC; 83605-TC; 83735-TC; 84100-TC; 84443-TC; 84484-TC; 85025-TC; 85730-TC; 86704; 86706; 87040-TC; 87081-TC; 87086-TC; 87186-TC; 87340; 90935-TC; A4216; A6403; G0378; J2020; J2185; J2248; J2250; J2310; J3010; J3370; J3490; J7030; J7050; J7060

== ENCOUNTER 2019-05-17 15:09 | Inpatient (IN) | payer BC, OTHER ==
[~2019-05-17] VITALS: Ht 175.3 cm; Wt 75.1 kg
[~2019-05-17 15:09] MED LIST changes: +Linezolid PO; +MERO500P IV; -OMEP20CA15 PO; -RXVAN XX; -SACC250C PO
--- NOTE | 2019-05-17 15:20 | NUR ---
BIB RA C/O SOB DURING DIALYSIS. PATIENT A/OX4, BREATHING EVEN AND UNLABORED, KEPT COMFORTABLE, ATTACHED TO THE CARBON ROD INSERTER. PATIENT HAS SIRIA MIDLINE, ILEOSTOMY ON RIGHT LOWER ABDOMEN AND A LEFT CHEST WALL PERMACATH.
[2019-05-17 15:51] LABS: BASOPHILS # (AUTO) 0.1 /CMM (0.0-0.2); EOSINOPHILS % (AUTO) 3.8 % (0.0-6.0); HEMATOCRIT 25 % (39-51); HEMOGLOBIN 7.9 g/dL (13.5-17.5); LYMPHOCYTES # (AUTO) 1.1 /CMM (0.8-4.8); LYMPHOCYTES % (AUTO) 12.3 % (20.0-44.0); MEAN CORPUSCULAR HGB CONC 32 g/dl (31.0-36.0); MEAN CORPUSCULAR VOLUME 92 fL (80-96); MONOCYTES # (AUTO) 0.6 /CMM (0.1-1.30); MONOCYTES % (AUTO) 6.7 % (2.0-12.0); NEUTROPHILS # (AUTO) 6.8 /CMM (1.8-8.9); NEUTROPHILS % (AUTO) 76.2 % (43.0-81.0); PLATELET COUNT (AUTO) 297 /CMM (150-450); RED BLOOD CELL COUNT(AUTO) 2.73 MIL/uL (4.5-6.0); WHITE BLOOD COUNT (AUTO) 8.9 K/uL (4.3-11.0)
[2019-05-17 15:59] LABS: CALCIUM, SERUM 8.7 mg/dL (8.5-10.1); CARBON DIOXIDE 23 mmol/L (21-32); CHLORIDE 107 mmol/L (98-107); GLUCOSE 109 mg/dL (74-106); POTASSIUM 4.2 mmol/L (3.5-5.1); SODIUM SERUM 141 mmol/L (136-145); UREA NITROGEN, BLOOD 29 mg/dL (7-18)
[2019-05-17 16:12] LABS: ALANINE AMINOTRANSFERASE 12 U/L (12-78); ALKALINE PHOSPHATASE 195 U/L (46-116); ASPARTATE AMINOTRANSFERASE 16 U/L (15-37); B-TYPE NATRIURETIC PEPTIDE 26820 PG/ML (0-125); BILIRUBIN,DIRECT 0.1 mg/dL (0.0-0.2); BILIRUBIN,TOTAL 0.3 mg/dL (0.2-1.0)
--- NOTE | 2019-05-17 16:53 | NUR ---
CALLED NURSING SUP FOR TELE BED.
[2019-05-17] MEDS ORDERED: PIPERACILLIN /TAZOBACTAM 3.375 G in IV D5W 50 ML IV ONE (17:00)
[2019-05-17] MEDS ORDERED: ALBUTEROL FS 2.5 MG/0.5 ML VIAL.NEB NEB ONE (17:00)
[2019-05-17] MEDS ORDERED: ALBUTEROL FS 2.5 MG/3 ML VIAL.NEB NEB ONE (17:00)
[2019-05-17] MEDS ORDERED: IPRATROPIUM NEB FS 0.5 MG/2.5 ML AMPUL.NEB ONE (17:04)
[2019-05-17] MEDS ORDERED: ALBUTEROL FS 2.5 MG/3 ML VIAL.NEB ONE (17:04)
[2019-05-17] MEDS ORDERED: PIPERACILLIN /TAZOBACTAM 3.375 G VIAL IV ONE (17:05)
[2019-05-17] MEDS ORDERED: ALBUTEROL FS 2.5 MG/0.5 ML VIAL.NEB ONE (17:06)
[2019-05-17] MEDS ORDERED: IPRATROPIUM NEB FS 0.5 MG/2.5 ML AMPUL.NEB NEB ONE (17:30)
--- NOTE | 2019-05-17 17:48 | NUR ---
NURSING SUP GAVE TELE BED 323-1.
--- NOTE | 2019-05-17 17:56 | NUR ---
REPORT GIVEN TO CONSTANCE HERNANDEZ FOR SADIA.
[2019-05-17] MEDS ORDERED: Z GUARD REMEDY 2 OZ OINT TP PRN (18:00)
[2019-05-17] MEDS ORDERED: TEMAZEPAM 15 MG CAPSULE PO PRN (18:00)
[2019-05-17] MEDS ORDERED: MAGNESIUM HYDROXIDE 30 ML UDC PO PRN (18:00)
[2019-05-17] MEDS ORDERED: HYDROCODONE/APAP 10/325MG 1 EA TABLET PO PRN (18:00)
[2019-05-17] MEDS ORDERED: ONDANSETRON HCL/PF 4 MG/2 ML VIAL IVP PRN (18:00)
[2019-05-17] MEDS ORDERED: DEXTROSE 50%-WATER 50 ML DISP.SYRIN IV PRN (18:00)
[2019-05-17] MEDS ORDERED: MAG HYDROX/AL HYDROX/SIMETH 30 ML UDC PO PRN (18:00)
[2019-05-17] MEDS ORDERED: ACETAMINOPHEN 325 MG TABLET PO PRN (18:00)
--- NOTE | 2019-05-17 18:47 | NUR ---
TRANSFERRED TO ROOM 323-1 VIA ACLS PROTOCOL. NO DISTRESS NOTED, ENDORSED TO CONSTANCE HERNANDEZ.
--- NOTE | 2019-05-17 19:00 | NUR ---
MS RN NOTES RECEIVED PATIENT FROM ER IN BED RESTING COMFORTABLE. PATIENT ALERT , ORIENTED X3. BED IN LOW LOCKED POSITION, CALL LIGHT WITHIN REACH. ORIENTED TO ROOM. ENDORSED CARE TO PM SHIFT.
[2019-05-17 20:00] VITALS: BP 153/80
[2019-05-17] MEDS ORDERED: PIPERACILLIN /TAZOBACTAM 3.375 G in IV D5W 50 ML IV SCH (21:00)
[2019-05-17] MEDS: BLOOD SUGAR DIAGNOSTIC 1 EACH STRIP IN SCH (21:25)
[2019-05-18] MEDS: IPRATROPIUM NEB FS 0.5 MG/2.5 ML AMPUL.NEB NEB PRN ×2 (02:20→14:56)
[2019-05-18] MEDS: ALBUTEROL FS 2.5 MG/0.5 ML VIAL.NEB NEB PRN ×2 (02:20→14:56)
[2019-05-18] MEDS: PIPERACILLIN /TAZOBACTAM 2.25 G in IV D5W 50 ML IV SCH ×2 (04:24→13:44)
[2019-05-18] MEDS: BLOOD SUGAR DIAGNOSTIC 1 EACH STRIP IN SCH ×4 (06:19→22:12)
[2019-05-18 06:57] LABS: BASOPHILS # (AUTO) 0.1 /CMM (0.0-0.2); EOSINOPHILS % (AUTO) 4.8 % (0.0-6.0); HEMATOCRIT 24 % (39-51); HEMOGLOBIN 7.4 g/dL (13.5-17.5); LYMPHOCYTES # (AUTO) 0.9 /CMM (0.8-4.8); LYMPHOCYTES % (AUTO) 12.9 % (20.0-44.0); MEAN CORPUSCULAR HGB CONC 31 g/dl (31.0-36.0); MEAN CORPUSCULAR VOLUME 93 fL (80-96); MONOCYTES # (AUTO) 0.4 /CMM (0.1-1.30); MONOCYTES % (AUTO) 5.5 % (2.0-12.0); NEUTROPHILS # (AUTO) 5.6 /CMM (1.8-8.9); NEUTROPHILS % (AUTO) 75.8 % (43.0-81.0); PLATELET COUNT (AUTO) 279 /CMM (150-450); RED BLOOD CELL COUNT(AUTO) 2.59 MIL/uL (4.5-6.0); WHITE BLOOD COUNT (AUTO) 7.4 K/uL (4.3-11.0)
[2019-05-18 07:10] LABS: CREATININE 5.8 mg/dL (0.6-1.3); MAGNESIUM 1.9 mg/dL (1.8-2.4); POTASSIUM 4.8 mmol/L (3.5-5.1)
--- NOTE | 2019-05-18 08:20 | NUR ---
MS RN OPENING NOTES RECEIVED PT IN BED, AWAKE, A/O X4. PT TOLERATING RA, WITH NO ACUTE RESPIRATORY DISTRESS. PT DENIES ANY PAIN OR DISCOMFORT AT THIS TIME. PT DENIES ANY CONCERNS OR QUESTIONS AT THIS TIME. PIV TO SIRIA MIDLINE, FLUSHED WITH NS, INTACT AND OPERATIONAL. LCW HD ACCESS PRESENT AND ILEOSTOMY NOTED WELL. PT KEPT COMFORTABLE IN BED. CALL LIGHT KEPT WITHIN REACH. PT'S BED IN LOWEST AND LOCKED POSITION WITH SR X3.
[2019-05-18 09:09] VITALS: BP 146/78
[2019-05-18] MEDS ORDERED: TAPE75TA2 PO (12:00)
[2019-05-18] MEDS ORDERED: LIDO30AD10 TP (12:00)
[2019-05-18] MEDS ORDERED: ACID1TAB12 PO (12:00)
[2019-05-18] MEDS ORDERED: HEPA50008 SQ (12:00)
[2019-05-18] MEDS ORDERED: ERGO500040 PO (12:00)
[2019-05-18] MEDS ORDERED: ACET-2605 PO (12:00)
[2019-05-18] MEDS ORDERED: CAPS60CR4 TP (12:00)
[2019-05-18] MEDS ORDERED: PREG150C PO (12:00)
[2019-05-18] MEDS ORDERED: ONDA4TAB5 PO (12:00)
[2019-05-18] MEDS ORDERED: FAMO20TA8 PO (12:00)
[2019-05-18] MEDS ORDERED: [UNRECOGNIZED DRUG - CODE] PO (12:00)
[2019-05-18] MEDS ORDERED: INSU100V7 SQ (12:00)
[2019-05-18] MEDS ORDERED: INSU100V42 SQ (12:00)
[2019-05-18] MEDS ORDERED: GLUC1KIT IM (12:00)
[2019-05-18] MEDS ORDERED: VITA1TAB56 PO (12:00)
[2019-05-18] MEDS ORDERED: EPOE200011 SQ (12:00)
[2019-05-18] MEDS ORDERED: DEXT50DI8 IV (12:00)
[2019-05-18] MEDS: INSULIN REGULAR, HUMAN 100 UNIT/ML 3 ML VIAL SQ PRN (12:30)
--- NOTE | 2019-05-18 15:10 | NUR ---
MS RN NOTES PT STARTED HD, CONSENT SIGNED BY PT.
--- NOTE | 2019-05-18 17:30 | NUR ---
MS RN NOTES CALLED PHARMACY AND SPOKE TO SHIVA REGARDING SILVADENE AND CLOTRIMAZOLE MEDICINE CREAM ORDERED FOR WOUND TREATMENT. MEDICINE STILL NOT AVAILABLE UP TO THIS MOMENT. MEDICINE NOT ON THE UNIT YET.
[2019-05-18] MEDS: CALCIUM ACETATE 667 MG TABLET PO SCH (17:34)
[2019-05-18] MEDS: GABAPENTIN 100 MG CAPSULE PO SCH (17:35)
[2019-05-18] MEDS: SEVELAMER CARBONATE 800 MG TABLET PO SCH (17:35)
[2019-05-18] MEDS: PREGABALIN 25 MG CAPSULE PO SCH (17:35)
[2019-05-18] MEDS: ACIDOPHILUS/BULGARICUS 1 EACH TAB.CHEW PO SCH ×2 (17:35→20:22)
--- NOTE | 2019-05-18 17:43 | NUR ---
MS RN NOTES PT JUST FINISHED HD A 3687, NO OUTPUT NOTED JUST CLEANING PER HD NURSE. PT AWARE.
[2019-05-18] MEDS ORDERED: DOSE PER PHARMACY MICAFUNGIN 1 EA XX PRN (18:00)
[2019-05-18] MEDS ORDERED: MEROPENEM 500 MG in IV NS 0.9% 50 ML IV ONE (18:30)
[2019-05-18] MEDS: CLOTRIMAZOLE/BETAMETASONE DIPROPIONATE 15 GM TUBE TP SCH (18:52)
--- NOTE | 2019-05-18 18:53 | NUR ---
MS RN NOTES CALLED PHARMACY FOR SILVADENE CREAM FOLLOW UP. AWAITING FOR THE MEDICINE TO ARRIVE.
[2019-05-18] MEDS: SILVER SULFADIAZINE CREAM 25 GM TUBE TP SCH (19:33)
--- NOTE | 2019-05-18 19:40 | NUR ---
MS RN CLOSING NOTES PT REMAINS IN BED, AWAKE, A/O X4. PT TOLERATING RA, WITH NO ACUTE RESPIRATORY DISTRESS. PT DENIES ANY PAIN OR DISCOMFORT AT THIS TIME. PIV TO SIRIA MIDLINE, FLUSHED WITH NS, INTACT AND OPERATIONAL. LCW HD ACCESS PRESENT AND ILEOSTOMY NOTED WELL. PT KEPT COMFORTABLE IN BED. ALL NEEDS AND CARE ATTENDED. CALL LIGHT KEPT WITHIN REACH. PT'S BED IN LOWEST AND LOCKED POSITION WITH SR X3. ENDORSED TO INCOMING PLANER MILL GRADER NURSE FOR SADIA.
[2019-05-18 20:00] VITALS: BP 142/87
[2019-05-18] MEDS ORDERED: MEROPENEM 500 MG in IV NS 0.9% 50 ML IV SCH (20:00)
[2019-05-18] MEDS: MICAFUNGIN SODIUM 100 MG in IV NS 0.9% 100 ML IV SCH (20:05)
[2019-05-18] MEDS: HYDROCODONE/APAP 5/325MG 1 EACH TABLET PO PRN (20:27)
[2019-05-18] MEDS: HEPARIN SODIUM, PORCINE 5000 UNITS/1 ML VIAL SQ SCH (20:28)
[2019-05-18] MEDS ORDERED: TAPENTADOL HYDROCHLORIDE PO SCH (21:00)
[2019-05-18] MEDS: MIRTAZAPINE 15 MG TABLET PO SCH (22:12)
[2019-05-18] MEDS: INSULIN GLARGINE, 100 UNIT/ML CARTRIDGE SQ SCH (22:16)
[2019-05-19] MEDS: HEPARIN SODIUM, PORCINE 5000 UNITS/1 ML VIAL SQ SCH ×3 (06:23→21:18)
[2019-05-19 07:22] LABS: BASOPHILS # (AUTO) 0.1 /CMM (0.0-0.2); BASOPHILS % (AUTO) 0.8 % (0.0-2.0); EOSINOPHILS % (AUTO) 4.8 % (0.0-6.0); HEMATOCRIT 24 % (39-51); LYMPHOCYTES % (AUTO) 14.9 % (20.0-44.0); MEAN CORPUSCULAR HGB CONC 33 g/dl (31.0-36.0); MEAN CORPUSCULAR VOLUME 91 fL (80-96); MONOCYTES # (AUTO) 0.5 /CMM (0.1-1.30); MONOCYTES % (AUTO) 7.8 % (2.0-12.0); NEUTROPHILS # (AUTO) 4.7 /CMM (1.8-8.9); NEUTROPHILS % (AUTO) 71.7 % (43.0-81.0); PLATELET COUNT (AUTO) 268 /CMM (150-450); RED BLOOD CELL COUNT(AUTO) 2.68 MIL/uL (4.5-6.0); WHITE BLOOD COUNT (AUTO) 6.6 K/uL (4.3-11.0)
[2019-05-19] MEDS: BLOOD SUGAR DIAGNOSTIC 1 EACH STRIP IN SCH ×4 (07:25→21:49)
[2019-05-19 07:48] LABS: CALCIUM, SERUM 8.6 mg/dL (8.5-10.1); MAGNESIUM 1.7 mg/dL (1.8-2.4); PHOSPHORUS 4.4 mg/dL (2.5-4.9)
[2019-05-19 07:53] LABS: POTASSIUM 5.3 mmol/L (3.5-5.1)
[2019-05-19 08:00] VITALS: BP 128/68
[2019-05-19] MEDS: CALCIUM ACETATE 667 MG TABLET PO SCH ×3 (08:00→18:47)
[2019-05-19] MEDS: SEVELAMER CARBONATE 800 MG TABLET PO SCH ×3 (08:00→18:47)
--- NOTE | 2019-05-19 08:27 | NUR ---
WOUND CARE CONSULT WOUND CARE RECEIVED CONSULT. WOUND CARE WILL DEFER CONSULT AND TREATMENT PLANS TO PLASTIC SURGICAL TEAM INCLUDING DPM DR BLACKMAN WHO ARE CURRENTLY FOLLOWING THIS PATIENT. PATIENT WITH JOSE AT 16, ALL PRESSURE ULCER PREVENTION MEASURES ARE NOTED TO BE IN PLACE AT THIS TIME. WILL SEE PRN.
--- NOTE | 2019-05-19 08:30 | NUR ---
ms rn received on bed, awake,alert,oriented x4,not in any form of distress, respirations even and unlabored,no sob noted, noted to have a leaking colostomy bag, first change for the day done.
[2019-05-19] MEDS: CLOTRIMAZOLE/BETAMETASONE DIPROPIONATE 15 GM TUBE TP SCH ×2 (09:00→18:50)
--- NOTE | 2019-05-19 09:00 | NUR ---
ms hylton breakfast served,due meds given,tolerated well.
[2019-05-19] MEDS: PREGABALIN 25 MG CAPSULE PO SCH ×3 (09:59→18:47)
[2019-05-19] MEDS: GABAPENTIN 100 MG CAPSULE PO SCH ×3 (10:00→18:47)
[2019-05-19] MEDS: LIDOCAINE 5% (PATCH) 1 EA PATCH TP SCH (10:00)
[2019-05-19] MEDS: ASCORBIC ACID 500 MG TABLET PO SCH (10:00)
[2019-05-19] MEDS: ACIDOPHILUS/BULGARICUS 1 EACH TAB.CHEW PO SCH ×4 (10:00→21:12)
[2019-05-19] MEDS: VITAMIN B COMP W-C 1 TAB TABLET PO SCH (10:00)
[2019-05-19] MEDS: SILVER SULFADIAZINE CREAM 25 GM TUBE TP SCH (10:19)
--- NOTE | 2019-05-19 11:00 | NUR ---
ms rn colostomy bag leaking again, changed again at this time.
--- NOTE | 2019-05-19 12:30 | NUR ---
ms hylton bs -97,no coverage given.
--- NOTE | 2019-05-19 15:00 | NUR ---
ms rn another colostomy bag changed.
[2019-05-19] MEDS ORDERED: EPOETIN ALFA (20,000 UNIT) 20,000 UNIT/ML VIAL SQ SCH (15:30)
[2019-05-19 15:40] VITALS: BP 131/75
--- NOTE | 2019-05-19 18:30 | NUR ---
ms rn bag changed again, bs - 127 - no coverage noted.
[2019-05-19] MEDS: MEROPENEM 500 MG in IV NS 0.9% 50 ML IV SCH (18:47)
--- NOTE | 2019-05-19 19:00 | NUR ---
ms rn on bed, no distress noted.
[2019-05-19] MEDS: MICAFUNGIN SODIUM 100 MG in IV NS 0.9% 100 ML IV SCH (19:23)
--- NOTE | 2019-05-19 19:30 | NUR ---
MS RN OPENING NOTES PATIENT AWAKE, A/O X4; PATIENT RESTING IN BED COMFORTABLY; NO SOB, NO S/S OF ACUTE RESPIRATORY DISTRESS NOTED; PATIENT ON 2L NC, TOLERATING WELL; ISOLATION PRECAUTIONS MAINTAINED; L CHEST WALL HD CATH INTACT; ILEOSTOMY INTACT; SKIN SLIGHTLY IRRITATED; WILL CONTINUE TO MONITOR; R UA MIDLINE INTACT AND PATENT; FLUSHING WELL; NO S/S OF REDNESS OR INFILTRATION; SAFETY PRECAUTIONS IMPLEMENTED; WILL CONTINUE TO MONITOR
[2019-05-19 20:00] VITALS: BP 172/93
[2019-05-19] MEDS: MIRTAZAPINE 15 MG TABLET PO SCH (21:12)
[2019-05-19] MEDS: HYDROCODONE/APAP 5/325MG 1 EACH TABLET PO PRN (21:12)
[2019-05-19] MEDS: INSULIN REGULAR, HUMAN 100 UNIT/ML 3 ML VIAL SQ PRN (21:17)
[2019-05-19] MEDS: INSULIN GLARGINE, 100 UNIT/ML CARTRIDGE SQ SCH (21:18)
[2019-05-20] MEDS: IPRATROPIUM NEB FS 0.5 MG/2.5 ML AMPUL.NEB NEB PRN (01:49)
[2019-05-20] MEDS: ALBUTEROL FS 2.5 MG/0.5 ML VIAL.NEB NEB PRN (01:49)
[2019-05-20] MEDS: HEPARIN SODIUM, PORCINE 5000 UNITS/1 ML VIAL SQ SCH ×3 (04:23→20:26)
--- NOTE | 2019-05-20 06:08 | NUR ---
MS RN CLOSING NOTES PATIENT A/O X4; NO SOB NOTED; PATIENT ON 2L NC AND TOLERATING WELL; L CHEST WALL HD IN PLACE; ILEOSTOMY IN PLACE AND REDNESS NOTED; R U MIDLINE INTACT AND PATENT; FLUSHING WELL, NO S/S OF REDNESS OR INFILTRATION NOTED; ALL NEEDS RENDERED; ISOLATION PRECAUTIONS MAINTAINTED; SAFETY PRECAUTIONS IMPLEMENTED; BED LOCKED IN LOW POSITION; CALL LIGHT WITHIN REACH; WILL ENDORSE SADIA TO ONCOMINIG SHIFT
--- NOTE | 2019-05-20 06:17 | NUR ---
MS RN NOTES PATIENT REFUSED ACCU CHECK; PATIENT STATED, "BUT YOU JUST TOOK IT EARLIER", PATIENT WAS EDUCATED ON ACCU CHECK PER ORDER; PATIENT SAID TO COME BACK AGAIN LATER; WILL ENDORSE TO ONCOMING SHIFT
[2019-05-20 07:24] LABS: BASOPHILS # (AUTO) 0.1 /CMM (0.0-0.2); EOSINOPHILS % (AUTO) 2.6 % (0.0-6.0); HEMATOCRIT 27 % (39-51); HEMOGLOBIN 8.3 g/dL (13.5-17.5); LYMPHOCYTES # (AUTO) 0.8 /CMM (0.8-4.8); LYMPHOCYTES % (AUTO) 12.8 % (20.0-44.0); MEAN CORPUSCULAR HGB CONC 31 g/dl (31.0-36.0); MEAN CORPUSCULAR VOLUME 91 fL (80-96); MONOCYTES # (AUTO) 0.4 /CMM (0.1-1.30); MONOCYTES % (AUTO) 6.6 % (2.0-12.0); NEUTROPHILS # (AUTO) 4.8 /CMM (1.8-8.9); PLATELET COUNT (AUTO) 256 /CMM (150-450); RED BLOOD CELL COUNT(AUTO) 2.98 MIL/uL (4.5-6.0); WHITE BLOOD COUNT (AUTO) 6.2 K/uL (4.3-11.0)
[2019-05-20 07:26] LABS: CALCIUM, SERUM 8.6 mg/dL (8.5-10.1); CREATININE 6.3 mg/dL (0.6-1.3); MAGNESIUM 1.8 mg/dL (1.8-2.4); PHOSPHORUS 6.3 mg/dL (2.5-4.9); POTASSIUM 5.9 mmol/L (3.5-5.1)
[2019-05-20] MEDS: BLOOD SUGAR DIAGNOSTIC 1 EACH STRIP IN SCH ×3 (07:30→16:57)
--- NOTE | 2019-05-20 07:41 | NUR ---
MS RN NOTES RECEIVED PATIENT IN BED RESTING COMFORTABLY IN MODERATE HIGH BACK REST. A/O X4; NO SIGNS OF DISTRESS NOTED AT THIS TIME; PATIENT ON 2L NC AND TOLERATING WELL; L CHEST WALL HD IN PLACE; ILEOSTOMY IN PLACE AND REDNESS NOTED; R U MIDLINE INTACT AND PATENT; FLUSHING WELL, NO S/S OF REDNESS OR INFILTRATION NOTED; ON ISOLATION PRECAUTIONS; SAFETY PRECAUTIONS; BED LOCKED IN LOW POSITION; CALL LIGHT WITHIN REACH; WILL CONTINUE TO MONITOR.
[2019-05-20 08:00] VITALS: BP 142/85
[2019-05-20] MEDS: SEVELAMER CARBONATE 800 MG TABLET PO SCH ×3 (08:25→17:39)
[2019-05-20] MEDS: GABAPENTIN 100 MG CAPSULE PO SCH ×3 (08:26→16:23)
[2019-05-20] MEDS: ASCORBIC ACID 500 MG TABLET PO SCH (08:26)
[2019-05-20] MEDS: ACIDOPHILUS/BULGARICUS 1 EACH TAB.CHEW PO SCH ×4 (08:26→20:24)
[2019-05-20] MEDS: LIDOCAINE 5% (PATCH) 1 EA PATCH TP SCH (08:26)
[2019-05-20] MEDS: PREGABALIN 25 MG CAPSULE PO SCH ×3 (08:26→16:23)
[2019-05-20] MEDS: VITAMIN B COMP W-C 1 TAB TABLET PO SCH (08:26)
[2019-05-20] MEDS: CALCIUM ACETATE 667 MG TABLET PO SCH ×3 (08:26→17:39)
[2019-05-20] MEDS: CLOTRIMAZOLE/BETAMETASONE DIPROPIONATE 15 GM TUBE TP SCH ×2 (08:55→16:40)
[2019-05-20] MEDS: SILVER SULFADIAZINE CREAM 25 GM TUBE TP SCH (08:56)
--- NOTE | 2019-05-20 10:20 | NUR ---
RN NOTES DIALYSIS NURSE ON UNIT, WILL DO HD AT BEDSIDE. A/O X4. NO SIGNS OF DISTRESS NOTED. WILL CONTINUE MONITOR.
[2019-05-20] MEDS: INSULIN REGULAR, HUMAN 100 UNIT/ML 3 ML VIAL SQ PRN ×2 (12:27→16:49)
--- NOTE | 2019-05-20 12:50 | NUR ---
RN NOTES VERIFIED WITH DOT, CONVERSION DEVELOPER REGARDING HEPARIN, PER ROLANDO CONVERSION DEVELOPER TO HOLD HEPARIN FOR NOW. WILL CONTINUE TO MONITOR.
[2019-05-20] MEDS ORDERED: MERO500P IV (13:50)
[2019-05-20] MEDS ORDERED: MICA100V IV (13:50)
[2019-05-20 16:00] VITALS: BP 131/66
[2019-05-20] MEDS: MEROPENEM 500 MG in IV NS 0.9% 50 ML IV SCH (17:39)
--- NOTE | 2019-05-20 18:40 | NUR ---
MS RN NOTES PATIENT IN BED RESTING COMFORTABLY IN MODERATE HIGH BACK REST. A/O X4; NO SIGNS OF DISTRESS NOTED THROUGHOUT THE SHIFT; PATIENT ON 2L NC AND TOLERATING WELL; L CHEST WALL HD IN PLACE, S/P HD TODAY, 1L OUTPUT; ILEOSTOMY IN PLACE AND REDNESS NOTED; R U MIDLINE INTACT AND PATENT; FLUSHING WELL, NO S/S OF REDNESS OR INFILTRATION NOTED; ON ISOLATION PRECAUTIONS; SAFETY PRECAUTIONS; BED LOCKED IN LOW POSITION; CALL LIGHT WITHIN REACH; FOR DISCHARGE AND CRECHE ATTENDANT IS AROUND 20:30. WILL ENDORSE TO APPRAISER ART NURSE FOR SADIA.
--- NOTE | 2019-05-20 19:25 | NUR ---
MS RN OPENING NOTES PATIENT RECEIVED RESTING IN BED A/O X4. PATIENT ON 2L OF O2 VIA NC WITH BREATHING EVEN AND UNLABORED, NO SOB NOTED. NO SIGNS OF ACUTE DISTRESS. NO COMPLAINTS OF PAIN OR DISCOMFORT. L CHEST WALL HD NOTED AND INTACT. ILEOSTOMY IN PLACE AND REDNESS NOTED. R UA MIDLINE NOTED AND IN PLACE. SAFETY PRECAUTIONS IN PLACE WITH BED IN LOWEST POSITION, CALL LIGHT WITHIN REACH, SIDE RAILS UP X2, AND BREAKS ON. ISOLATION PRECAUTION IN PLACE WELL. AWAITING FOR D/C. WILL CONTINUE TO MONITOR.
[2019-05-20] MEDS: MICAFUNGIN SODIUM 100 MG in IV NS 0.9% 100 ML IV SCH (20:24)
--- NOTE | 2019-05-20 20:34 | NUR ---
MS RN NOTES HELD HEPARIN. PER ROLANDO, SAFEKEEPING CLERK TO HOLD HEPARIN FOR NOW. ENDORSED FROM PREVIOUS NURSING NOTED. WILL CONTINUE TO MONITOR.
--- NOTE | 2019-05-20 21:00 | NUR ---
MS HERNANDEZ NOTES PATIENT REFUSED SKIN ASSESSMENT Addendum: 05/21/19 at 0649 by CURTIS SAMUELS RN AND PICTURES
--- NOTE | 2019-05-20 21:06 | NUR ---
MS MANAGER COSMETICS NOTES PATIENT DISCHARGED VIA GURNEY ACCOMPANIED BY TRANSPORTERS. PATIENT MEDICALLY STABLE. NO SIGNS OF ACUTE DISTRESS. MEDICAL BAND REMOVED. BELONGINGS ACCOUNTED FOR. ALL PAPER WORK SIGNED. EDUCATED PATIENT ON WHAT WAS IN DISCHARGE PACKET AND TRANSPORTER.
[2019-05-23] MEDS ORDERED: ERGOCALCIFEROL (VITAMIN D 2) 50,000 UNIT CAPSULE PO SCH (15:30)
== END 2019-05-20 21:00 | DRG 177 ==
LOC: ER 15:10 → TELE 18:06 → MED 05-18 11:26
PROVIDERS: ADMIT Nurse Practitioner Acute Care; ATTEND Nurse Practitioner Acute Care
PROC: 5A1D70Z Performance of Urinary Filtration, Intermittent, Less than 6 Hours Per Day (ICD-10-PCS; principal; 2019-05-18)
DX: J15.6 Pneumonia due to other Gram-negative bacteria (principal); N18.6 End stage renal disease; K75.0 Abscess of liver; I13.2 Hypertensive heart and chronic kidney disease with heart failure and with stage 5 chronic kidney disease, or end stage renal disease; I42.9 Cardiomyopathy, unspecified; J44.0 Chronic obstructive pulmonary disease with (acute) lower respiratory infection; E11.22 Type 2 diabetes mellitus with diabetic chronic kidney disease; I50.9 Heart failure, unspecified; K21.9 Gastro-esophageal reflux disease without esophagitis; I25.10 Atherosclerotic heart disease of native coronary artery without angina pectoris; F32.9 Major depressive disorder, single episode, unspecified; E78.5 Hyperlipidemia, unspecified; E11.51 Type 2 diabetes mellitus with diabetic peripheral angiopathy without gangrene; E11.42 Type 2 diabetes mellitus with diabetic polyneuropathy; D63.1 Anemia in chronic kidney disease; E11.621 Type 2 diabetes mellitus with foot ulcer; F17.210 Nicotine dependence, cigarettes, uncomplicated; G89.29 Other chronic pain; L30.4 Erythema intertrigo; Z93.3 Colostomy status; Z93.2 Ileostomy status; Z99.2 Dependence on renal dialysis; Z95.810 Presence of automatic (implantable) cardiac defibrillator; N25.0 Renal osteodystrophy; S60.521A Blister (nonthermal) of right hand, initial encounter; X58.XXXA Exposure to other specified factors, initial encounter; Y93.9 Activity, unspecified; Y92.129 Unspecified place in nursing home as the place of occurrence of the external cause; E11.610 Type 2 diabetes mellitus with diabetic neuropathic arthropathy; M10.9 Gout, unspecified; L97.519 Non-pressure chronic ulcer of other part of right foot with unspecified severity; L98.8 Other specified disorders of the skin and subcutaneous tissue; L90.5 Scar conditions and fibrosis of skin; S61.401A Unspecified open wound of right hand, initial encounter; J44.9 Chronic obstructive pulmonary disease, unspecified; Z87.01 Personal history of pneumonia (recurrent); Z94.7 Corneal transplant status; Z79.4 Long term (current) use of insulin
CPT/HCPCS: 36415; 71045-TC; 80048-TC; 80061-TC; 80076-TC; 82962-TC; 83605-TC; 83735-TC; 83880; 84100-TC; 84484-TC; 85025-TC; 85730-TC; 86704; 86706; 87040-TC; 87081-TC; 87340; 90935-TC; 94799-TC; 97110-TC; 97116-TC; 97530-TC; A4216; A6403; G0378; J0885; J1644; J1815; J2185; J2248; J2543; J7030; J7050; J7060